=== PATIENT | male | born 2000 | race Two or more races ===

== ENCOUNTER 2021-11-08 14:51 | Emergency (ER) | payer OTHER, SELFPAY | END 2021-11-08 16:07 | disposition left against medical advice (07) | PROVIDERS: Emergency Provider Emergency Medicine | DX: R10.9 Unspecified abdominal pain (principal) ==

== ENCOUNTER 2021-11-17 06:30 | Emergency (ER) | payer OTHER, SELFPAY ==
[2021-11-17] VITALS (9 sets, daily range): BP systolic 120–139; BP diastolic 55–92; PULSE 119–156; RESP 11–24; TEMP 36.5–37; O2SAT 100; BMI 21.2
--- NOTE | ~2021-11-17 | CT_ITS ---
EXAMINATION: CT GI BLEED, ABDOMEN AND PELVIS WITHOUT/WITH IV CONTRAST CLINICAL INFORMATION: Bright red blood per rectum. COMPARISON: None. TECHNIQUE: Noncontrast and contrast-enhanced volumetric helical CT acquisition of the abdomen and pelvis. Axial images are presented at 0.6 mm and 5 mm slice thickness. Initially, noncontrast images of the abdomen and pelvis were obtained. Then, imaging is repeated after intravenous administration of 80 mL Omnipaque 350. Coronal and sagittal reformatted images were generated at the technologist workstation. This CT examination was performed using dose optimization techniques as appropriate, variously including the following: *Automated exposure control *Adjustment of mA and/or kV according to patient size (this includes techniques or standardized protocols for targeted exams where dose is matched to indication/reason for exam; i.e. extremities or head) *Use of iterative reconstruction technique DLP: 703 mGy-cm. FINDINGS: LUNG BASES: Unremarkable. LIVER, GALLBLADDER, AND BILIARY TREE: The liver has normal size, shape, and attenuation. No focal hepatic lesion. The gallbladder is grossly normal; no radiopaque gallstones, wall thickening, or pericholecystic fluid. No intrahepatic or extrahepatic bile duct dilatation. PANCREAS: Normal. No evidence of pancreatic mass, edema or ductal dilatation. SPLEEN: Normal. ADRENAL GLANDS: Normal. KIDNEYS AND URETERS: The kidneys have normal size, shape, and attenuation. No hydroureteronephrosis, urolithiasis or perinephric edema. BLADDER: Unremarkable. BOWEL AND PERITONEUM: Stomach and small bowel are normal. There is calcific material or contrast material in the lumen of the normal appendix. Gxttzmon-ip-hyjap amount of fecal material is present within the majority of the colon, with exception of the distal descending colon and rectum. There is fluid and probable clot filling the lumen of the distal colon and rectum. The contrast-enhanced images show presence of an active bleed arising from the rectal wall with extravasated contrast filling the rectal lumen. The bleed appears to be arising from a vessel along the vessel from the left lateral wall of the proximal third of the rectum, but there is also significant hyperdense contrast along the posterior wall of the mid to distal third of the rectum, which suggests that there might be more than one site of active bleeding from the rectal wall. The rectal mucosa is mildly thickened, particularly mid to distal third rectum, and there is associated perirectal edema/fat stranding. Findings are suggestive of active proctitis. Lymphadenopathy is present in the mesorectal compartment and there are mildly enlarged internal iliac and common iliac lymph nodes, as well. The largest right internal iliac lymph node is 1 cm and largest common iliac lymph node 0.9 cm short axis dimension. ABDOMINAL WALL: Unremarkable. LYMPH NODES: No pathologic sized retroperitoneal lymph nodes. Again, mildly enlarged iliac lymph nodes are detected. Also, prominent lymph nodes are present in the mesorectal compartment. VASCULATURE: Abdominal aorta and its branches are widely patent. Inferior vena cava is normal. PELVIC VISCERA: Prostate gland is normal. No pelvic mass. MUSCULOSKELETAL: Unremarkable. CT/CT gi bleed abd pel wo/w con IMPRESSION: The imaging findings are consistent with an active proctitis. There is thickening of rectal mucosa with edema/inflammation of perirectal fat and associated lymphadenopathy. There is no discrete mass within the rectum. The contrast-enhanced images show an active rectal bleed. The critical test result was discussed with ELIZA Santoyo, at 8:50 am on 11/17/2021 and it was ascertained that the content and the importance of the findings was understood at the time of the direct communication.
[2021-11-17 06:42] LABS: Glucose, Whole Blood 93 mg/dL (60-115)
--- NOTE | 2021-11-17 06:44 | ECG_ITS ---
Test Reason : TACHYCARDIA Blood Pressure : / mmHG Vent. Rate : 113 BPM Atrial Rate : 113 BPM P-R Int : 122 ms QRS Dur : 084 ms QT Int : 316 ms P-R-T Axes : 072 077 057 degrees QTc Int : 433 ms Sinus tachycardia Otherwise normal ECG No previous ECGs available Referred By: Araceli Arcos Electronically Signed By:Hemant Wong
--- NOTE | 2021-11-17 07:00 | ED_ITS ---
HPI - GI Bleed General Chief complaint: General Medical Stated complaint: rectal bleeding Time Seen by Provider: 11/17/21 06:44 Source: patient Mode of arrival: ambulatory Limitations: other (poor historian due to distress) History of Present Illness HPI Narrative: states 3 weeks of brbpr denies trauma or anal intercourse for 2 months he denies known prior history of this no known fam hx of IBD or UC/Crohns in himself. he is not on ASA or blood thinners. he has been feeling more weak and notes that over the past few days it has been worse. Last night it became severe and he was bleeding a lot and passing things that looked like red fish. Now he can barely walk now due to weakness and pain in his abdomen MD complaint: gross hematochezia Onset (ago): week(s) (3) Pain Consistency: intermittent and other Severity: moderate Relieving factors: none Exacerbating factors: bowel movement Context: other (he denies any known history) Associated symptoms: abdominal pain, nausea, loss of appetite, malaise, other bleeding (? thinks he noticed coughing up blood as well ) and weakness Treatments Prior to Arrival: none Related Data Home Medications Medication Instructions Recorded Confirmed doxycycline hyclate 100 mg capsule 1 cap PO BID 11/17/21 11/17/21 ibuprofen 800 mg tablet 1 tab PO TID 11/17/21 11/17/21 melatonin 10 mg capsule 1 cap PO BEDTIME 11/17/21 11/17/21 Allergies Allergy/AdvReac Type Severity Reaction Status Date / Time No Known Allergies Allergy Verified 11/17/21 06:36 [No Known Allergies*] Review of Systems Review of Systems: Constitutional : No Weight loss, No Fever, No Chills ENT/Mouth : No sore throat, No Rhinorrhea Eyes: No Swelling, No Redness Cardiovascular : No Chest Pain, No SOB, NoEdema Respiratory : pos Cough, No Sputum, No Wheezing Gastrointestinal : Positive Nausea, no Vomiting, positive Diarrhea, positive abdominal Pain, pos Hematochezia, No Melena Genitourinary : No Dysuria, No Urinary Frequency, No Hematuria, No Urgency Musculoskeletal : No joint pain, No Myalgias, No Joint Swelling Skin : No Skin Lesions, No rash Neuro : No Weakness, No Numbness, No Dizziness, No Headache Psych : pos Anxiety/Panic, No Depression Heme/Lymph: No Bruising, No Lymphadenopathy Endocrine : No Polyuria, No Polydipsia All other systems reviewed and are negative. [facility] Past Medical History Attestation statement: The following information was validated with the patient. Medical History HIV (human immunodeficiency virus infection) Social History Social History (Updated 11/17/21 @ 07:00 by Araceli Arcos DO) Alcohol intake: current Alcohol intake frequency: holidays/special occasions only Patient Tobacco Use Status: Never used Tobacco Use of substances other than those prescribed or required for medical reasons: Yes Substance Use Type: Marijuana Advance Directives: No Advance Directives Information Provided: Yes Physical Exam Vital Signs: Vital Signs: Last Vital Signs Temp 97.7 F 11/17/21 09:11 Pulse 120 H 11/17/21 09:11 Resp 20 11/17/21 09:11 BP 122/77 11/17/21 09:11 Pulse Ox 100 11/17/21 08:59 BMI result Body Mass Index 21.2 Appearance: Alert. Oriented X3. Moderate acute distress. Very anxious Eyes: Pupils equal, round and reactive to light. Pale sclera ENT: Pharynx dry Neck: Normal inspection. Neck supple. CVS:tachycardic heart rate and rhythm. Pulses present but capillary refill is delayed Respiratory: No respiratory distress. Breath sounds normal. Abdomen: Soft and moderate diffuse lower ttp, pos guarding Rectal: brb noted outside rectum underwear filled with clots and our bed pad had moderate area of blood soaked under it Skin: Skin cool and diaphoretic. pale skin color. Extremities: No lower extremity edema. nailbeds are white Neuro: Oriented X 3. No motor deficit. No sensory deficit. Very anxious Course Course Course Narrative: given tachycardia/anxiety/diaphoresis/pale appearance/delay in cap refill with significant active bleeding, hemoglobin 7.9 (no prior) will transfuse 1 UPRBC delay in type of blood and repeat bleeding worsening tachycardic will release emergency release O neg blood at this time very anxious - likely hemoglobin is even lower than 7.9 803am message sent to GI and surgery given active extravasation looks like it is lower on CT scan in rectum on my initial review while patient on CT table repeat message sent to his sister Divya [phone] states she can maybe co me at 930 I explained to her the seriousness of the situation which patient gave me the permission to do so. I have not left the bed side assisted in managing the patient, Dr Hu (gen surg) here plans for sigmoidoscopy now. 2 units of blood transfusing in - had 2 significant large bloody movements noted with large clots expressed HR 160s additional 18G in L AC patient now states he was at [facility] and [facility] in the last month c/o same thing and told it was related to infection and given prescriptions he doesn't know much at this time. discussed with radiology here and surgery ?IR at [facility] for embolization, patient still very tachcyardia BP 120/50 actively bleeding he is very anxious and confused now perseverating and stating he is going to leave, diaphoretic 3rd unit of blood infusing, brb and clots noted again 847am, Dr. Hu remains at bedside, repeat expression of large amount of brb and clots surgery at bedside. Sister has arrived. [facility] refused transport states they are closed to anything but trauma, stroke for thrombectomy, STEMI 854am will call [facility] 854am given proximity I do not think he is appropriate for travel distance to [place]/[facility] [[email or web address] added on levofloxacin/flagyl for proctitis - radiology read proctitis rectal hemorrhage active contrast is bright ?arterial bleed spoke to [facility] 859am Kee in transfer line , requests PCR COVID test , accepted to ED Dr. Padilla - aquiles made, requesting transfer for IR HEMOGLOBIN 11/14 [facility] 12.[address] with doxy CT scan proctitis - records sent to [facility] as well. MDM - GI Bleed MDM Narrative Medical decision making narrative: 21 yo male with HIV on medications no other prior medical history denies IBD or fam hx no ASA/NSAIDs, denies any recent rectal intercourse or penetration but notes for the past few weeks increasing brb per rectum with stool but also without last night was particularly bad with what he describes as clots coming out. At this time he is tachcyardic and pale with anxiety. Will obtain labs, type and screen, [address], IV fentanyl for pain, CT scan for GIB protocol ordered. Unsure what precipitated this event denies trauma, IBD, AC therapy, could be colitis. Concern for active hemorrhage and need for transfusion will notify surgery and GI as well given presentation. Lab Data Result diagrams: 11/17/21 06:54 11/17/21 06:54 Labs: Lab Results 11/17/21 11/17/21 11/17/21 Range/Units 06:37 06:54 06:54 WBC 11.5 H (4.8-10.8) X10*3/uL RBC 2.97 L (4.60-5.80) X10*6/uL Hgb 7.9 L (14.0-18.0) g/dl Hct 24.4 L (42.0-52.0) % MCV 82.2 (80.0-98.0) fL MCH 26.6 L (27.0-33.0) pg MCHC 32.4 (31.0-36.0) g/dl RDW 12.7 (11.0-16.0) % Plt Count 367 (160-400) X10*3/uL MPV 8.6 L (9.4-12.4) fL Immature Gran % (Auto) 0.5 H (0.0-0.4) % Neut % (Auto) 54.0 (45-73) % Lymph % (Auto) 35.0 (20-40) % Bryan % (Auto) 9.3 (2-11) % Eos % (Auto) 1.0 (0-4) % Baso % (Auto) 0.2 (0-2) % Lymph # (Auto) 4.0 (1.2-4.9) X10*3/uL Bryan # (Auto) 1.1 (0.1-1.2) X10*3/uL Eos # (Auto) 0.1 (0.0-0.4) X10*3/uL Baso # (Auto) 0.0 (0.0-0.2) X10*3/uL Abs Immat Gran (auto) 0.06 H (0.00-0.03) X10*3/uL Absolute Neuts (auto) 6.2 (2.0-8.3) x10*3/uL Absolute Nucleated RBC 0.000 (0.0-0.012) X10*3/uL Nucleated RBC % (auto) 0.0 (0.0-0.2) /100WBC Smear Tech's Comments VERIFIED PT 12.4 (9.9-13.0) SEC INR 1.1 (0.9-1.1) APTT 31.0 (24.1-38.0) SEC Sodium (135-145) mmol/L Potassium (3.3-5.1) mmol/L Chloride (96-108) mmol/L Carbon Dioxide (22-29) mmol/L Anion Gap (12-20) BUN (9-16) mg/dL Creatinine (0.5-1.4) mg/dL Estim Creat Clear Calc Estimated GFR POC Glucose 93 (60-115) mg/dL Random Glucose (60-115) mg/dL Lactic Acid (0.5-2.0) mmol/L Calcium (8.4-10.2) mg/dL Magnesium (1.6-2.6) mg/dL Total Bilirubin (0.0-1.0) mg/dL Direct Bilirubin (0.0-0.5) mg/dL AST (5-37) U/L ALT (0-40) U/L Alkaline Phosphatase (39-117) U/L Total Protein (6.5-8.0) g/dL Albumin (3.5-5.0) g/dL Lipase (8-78) U/L Stool Occult Blood (NEGATIVE) COVID-19 (MICHAEL) (Negative) COVID-19 Clin Com Blood Type Antibody Screen Crossmatch 11/17/21 11/17/21 11/17/21 Range/Units 06:54 06:54 06:54 WBC (4.8-10.8) X10*3/uL RBC (4.60-5.80) X10*6/uL Hgb (14.0-18.0) g/dl Hct (42.0-52.0) % MCV (80.0-98.0) fL MCH (27.0-33.0) pg MCHC (31.0-36.0) g/dl RDW (11.0-16.0) % Plt Count (160-400) X10*3/uL MPV (9.4-12.4) fL Immature Gran % (Auto) (0.0-0.4) % Neut % (Auto) (45-73) % Lymph % (Auto) (20-40) % Bryan % (Auto) (2-11) % Eos % (Auto) (0-4) % Baso % (Auto) (0-2) % Lymph # (Auto) (1.2-4.9) X10*3/uL Bryan # (Auto) (0.1-1.2) X10*3/uL Eos # (Auto) (0.0-0.4) X10*3/uL Baso # (Auto) (0.0-0.2) X10*3/uL Abs Immat Gran (auto) (0.00-0.03) X10*3/uL Absolute Neuts (auto) (2.0-8.3) x10*3/uL Absolute Nucleated RBC (0.0-0.012) X10*3/uL Nucleated RBC % (auto) (0.0-0.2) /100WBC Smear Tech's Comments PT (9.9-13.0) SEC INR (0.9-1.1) APTT (24.1-38.0) SEC Sodium 132 L (135-145) mmol/L Potassium 4.4 (3.3-5.1) mmol/L Chloride 102 (96-108) mmol/L Carbon Dioxide 26 (22-29) mmol/L Anion Gap 8 L (12-20) BUN 15 (9-16) mg/dL Creatinine 0.83 (0.5-1.4) mg/dL Estim Creat Clear Calc 124.3 Estimated GFR > 60 POC Glucose (60-115) mg/dL Random Glucose 96 (60-115) mg/dL Lactic Acid 1.9 (0.5-2.0) mmol/L Calcium 8.5 (8.4-10.2) mg/dL Magnesium 1.9 (1.6-2.6) mg/dL Total Bilirubin < 0.2 (0.0-1.0) mg/dL Direct Bilirubin < 0.2 (0.0-0.5) mg/dL AST 13 (5-37) U/L ALT 10 (0-40) U/L Alkaline Phosphatase 58 (39-117) U/L Total Protein 6.6 (6.5-8.0) g/dL Albumin 3.2 L (3.5-5.0) g/dL Lipase 25 (8-78) U/L Stool Occult Blood (NEGATIVE) COVID-19 (MICHAEL) Negative (Negative) COVID-19 Clin Com See Note Blood Type Antibody Screen Crossmatch 11/17/21 11/17/21 Range/Units 06:54 06:54 WBC (4.8-10.8) X10*3/uL RBC (4.60-5.80) X10*6/uL Hgb (14.0-18.0) g/dl Hct (42.0-52.0) % MCV (80.0-98.0) fL MCH (27.0-33.0) pg MCHC (31.0-36.0) g/dl RDW (11.0-16.0) % Plt Count (160-400) X10*3/uL MPV (9.4-12.4) fL Immature Gran % (Auto) (0.0-0.4) % Neut % (Auto) (45-73) % Lymph % (Auto) (20-40) % Bryan % (Auto) (2-11) % Eos % (Auto) (0-4) % Baso % (Auto) (0-2) % Lymph # (Auto) (1.2-4.9) X10*3/uL Bryan # (Auto) (0.1-1.2) X10*3/uL Eos # (Auto) (0.0-0.4) X10*3/uL Baso # (Auto) (0.0-0.2) X10*3/uL Abs Immat Gran (auto) (0.00-0.03) X10*3/uL Absolute Neuts (auto) (2.0-8.3) x10*3/uL Absolute Nucleated RBC (0.0-0.012) X10*3/uL Nucleated RBC % (auto) (0.0-0.2) /100WBC Smear Tech's Comments PT (9.9-13.0) SEC INR (0.9-1.1) APTT (24.1-38.0) SEC Sodium (135-145) mmol/L Potassium (3.3-5.1) mmol/L Chloride (96-108) mmol/L Carbon Dioxide (22-29) mmol/L Anion Gap (12-20) BUN (9-16) mg/dL Creatinine (0.5-1.4) mg/dL Estim Creat Clear Calc Estimated GFR POC Glucose (60-115) mg/dL Random Glucose (60-115) mg/dL Lactic Acid (0.5-2.0) mmol/L Calcium (8.4-10.2) mg/dL Magnesium (1.6-2.6) mg/dL Total Bilirubin (0.0-1.0) mg/dL Direct Bilirubin (0.0-0.5) mg/dL AST (5-37) U/L ALT (0-40) U/L Alkaline Phosphatase (39-117) U/L Total Protein (6.5-8.0) g/dL Albumin (3.5-5.0) g/dL Lipase (8-78) U/L Stool Occult Blood POSITIVE (NEGATIVE) COVID-19 (MICHAEL) (Negative) COVID-19 Clin Com Blood Type A Positive Antibody Screen NEGATIVE Crossmatch See Detail ECG Data Attestation: I personally reviewed and interpreted this ECG as follows: ECG interpretation date: 11/17/21 ECG interpretation time: 07:13 Interpretation: Rate: 113 Rhythm: sinus tachycardia [place]: normal Normal P waves. Normal ARSLAN. Normal QRS complex. ST T wave : normal no ESSIE qTC: normal prior studies: no acute ischemia The study has been interpreted contemporaneously by me. . Critical Care Time Critical Care Time Critical Care Time: Yes Total Critical Care Time: 90 Attestation: calls to family, medical consults, IV access, blood transfusions, IVF, direct bedside assessments I attest to this time spent taking care of the patient Discharge Plan Discharge Clinical Impression: Acute GI bleeding, Anemia, Acute proctitis, Rectal hemorrhage Patient Disposition: Xfer [facility] Transfer Details: [facility] Prescriptions: No Action doxycycline hyclate 100 mg capsule 1 cap PO BID 0RF ibuprofen 800 mg tablet 1 tab PO TID 0RF melatonin 10 mg capsule 1 cap PO BEDTIME 0RF
[2021-11-17] MEDS: fentaNYL citrate/PF 100 MCG/2 ML VIAL 50 MCG IVPUSH ×2 (07:01→09:21)
[2021-11-17] MEDS: ondansetron HCL 4 MG/2 ML VIAL IVPUSH (07:02)
[2021-11-17] MEDS: 0.9 % Sodium Chloride 1,000 ML 999 ML IVCONT ×2 (07:03→07:11)
[2021-11-17 07:06] LABS: Basophils Percent Auto 0.2 % (0-2); Eosinophils Absolute Auto 0.1 X10*3/uL (0.0-0.4); Hematocrit 24.4 % (42.0-52.0); Imm Gran Abs Auto 0.06 X10*3/uL (0.00-0.03); Imm Gran Pct Auto 0.5 % (0.0-0.4); MANUAL DIFF FLAG SCAN; Mean Corpuscular HGB Conc 32.4 g/dl (31.0-36.0); Mean Corpuscular Hemoglobin 26.6 pg (27.0-33.0); Mean Corpuscular Volume 82.2 fL (80.0-98.0); Mean Platelet Volume 8.6 fL (9.4-12.4); Monocytes Absolute Auto 1.1 X10*3/uL (0.1-1.2); Monocytes Percent Auto 9.3 % (2-11); Neutrophils Absolute Auto 6.2 x10*3/uL (2.0-8.3); Platelet Count 367 X10*3/uL (160-400); Red Blood Count 2.97 X10*6/uL (4.60-5.80); Red Cell Distribution Width 12.7 % (11.0-16.0); SCAN SMEAR FLAG 1; White Blood Count 11.5 X10*3/uL (4.8-10.8)
[2021-11-17 07:10] LABS: OBS Int Ctl Valid YES; OBS1 POSITIVE (NEGATIVE)
[2021-11-17 07:14] LABS: INTERNATIONAL NORM RATIO 1.1 (0.9-1.1); Lactic Acid 1.9 mmol/L (0.5-2.0); Prothrombin Time 12.4 SEC (9.9-13.0)
[2021-11-17 07:19] LABS: Hemoglobin 7.9 g/dl (14.0-18.0)
[2021-11-17 07:20] LABS: COVID-19 Test Negative (Negative)
[2021-11-17 07:23] LABS: Alanine Aminotransferase 10 U/L (0-40); Albumin Level 3.2 g/dL (3.5-5.0); Alkaline Phosphatase 58 U/L (39-117); Anion Gap 8 (12-20); Aspartate Amino Transferase 13 U/L (5-37); Bilirubin Direct < 0.2 mg/dL (0.0-0.5); Bilirubin Total < 0.2 mg/dL (0.0-1.0); Blood Urea Nitrogen 15 mg/dL (9-16); Calcium 8.5 mg/dL (8.4-10.2); Carbon Dioxide 26 mmol/L (22-29); Chloride 102 mmol/L (96-108); Creatinine Clr Calc Pharmacy 124.3; Estimated Glomerular Filt Rate > 60; Glucose Random 96 mg/dL (60-115); Lipase 25 U/L (8-78); Magnesium 1.9 mg/dL (1.6-2.6); Potassium 4.4 mmol/L (3.3-5.1); Sodium 132 mmol/L (135-145); Total Protein 6.6 g/dL (6.5-8.0)
[2021-11-17 07:55] LABS: SLIDE REVIEW VERIFIED
[2021-11-17] MEDS: iohexoL 350 MG/ML 100 ML INFUS..BTL IV (08:13)
[2021-11-17] MEDS: metroNIDAZOLE/NS 500 MG/100 ML PIGGYBACK 100 MG IV (09:13)
[2021-11-17] MEDS: levoFLOXacin/D5W 500 MG/100 ML PIGGYBACK 100 MG IV (09:26)
--- NOTE | 2021-11-17 09:46 | PC.NURSE ---
Patient transferred to [facility], transferred while blood was infusing.
[2021-11-17 09:52] LABS: Influenza A PCR NEGATIVE (Negative); Influenza B PCR NEGATIVE (Negative); Resp Syncy Virus RNA Qual PCR NEGATIVE (Negative); SARS COV2 PCR INHOUSE NEGATIVE (Negative)
--- NOTE | 2021-11-17 10:58 | P.CONGS_ITS ---
History of Present Illness Consult details Consult date: 11/17/21 Narrative: 21-year-old male seen earlier today in the ER. He was referred for active rectal bleeding. The patient was extremely anxious and hyperventilating when seen. He apparently had been having some passage of bright blood per rectum for about a month. This seemed to have been worse this morning that so he came to the ER. He was seen in [facility] as well as [facility] about 4 days ago as well for the same problem but he said he was discharged. He continued to have rectal bleeding which seemed to be this morning. He has a history of HIV. He admits to previous history of anal receptive intercourse. He says that she has pain in the rectum with bowel movements and this has been like this for several weeks. Review of Systems Constitutional: Constitutional: Denies chills and Denies fever(s) Cardiovascular: Cardiovascular: Denies chest pain, Denies dyspnea and Denies dyspnea on exertion Respiratory: Respiratory: Denies cough, Denies dyspnea and Denies dyspnea on exertion Gastrointestinal: Gastrointestinal: Reports hematochezia and Denies change in bowel habits Genitourinary: Genitourinary: Denies hematuria and Denies difficulty urinating Musculoskeletal: Musculoskeletal: Denies back pain and Denies limited range of motion Neurologic: Denies focal weakness and Denies convulsions Psychiatric: Psychiatric: Reports anxiety PMFSH Past Medical History Medical History HIV (human immunodeficiency virus infection) Social History Social History Alcohol intake: current Alcohol intake frequency: holidays/special occasions only Patient Tobacco Use Status: Never used Tobacco Use of substances other than those prescribed or required for medical reasons: Yes Substance Use Type: Marijuana Advance Directives: No Advance Directives Information Provided: Yes Meds Allergies Allergy/AdvReac Type Severity Reaction Status Date / Time No Known Allergies Allergy Verified 11/17/21 06:36 [No Known Allergies*] Home Medications Medication Instructions Recorded Confirmed Last Taken Type doxycycline hyclate 100 mg capsule 1 cap PO BID 11/17/21 11/17/21 Unknown History ibuprofen 800 mg tablet 1 tab PO TID 11/17/21 11/17/21 Unknown History melatonin 10 mg capsule 1 cap PO BEDTIME 11/17/21 11/17/21 Unknown History Physical Exam Vital Signs: Vital Signs: Last Vital Signs Temp 97.7 F 11/17/21 09:11 Pulse 120 H 11/17/21 09:11 Resp 20 11/17/21 09:11 BP 122/77 11/17/21 09:11 Pulse Ox 100 11/17/21 08:59 BMI result Body Mass Index 21.2 Const: Other: extremely anxious, frequently hyperventilating Orientation/consciousness: patient oriented x3 Neck: Neck: Yes no lymphadenopathy Resp: Auscultation: clear to auscultation bilaterally Cardio: Rhythm: regular rhythm GI: Other: Active passage of bright clots rectum when seen Palpation (GI): Soft to palp ation, nontender and no guarding Neuro: General: patient oriented x3 Results Labs Result diagrams: 11/17/21 06:54 11/17/21 06:54 Labs: Abnormal lab results 11/17/21 11/17/21 11/17/21 Range/Units 06:54 06:54 06:54 WBC 11.5 H (4.8-10.8) X10*3/uL RBC 2.97 L (4.60-5.80) X10*6/uL Hgb 7.9 L (14.0-18.0) g/dl Hct 24.4 L (42.0-52.0) % MCH 26.6 L (27.0-33.0) pg MPV 8.6 L (9.4-12.4) fL Immature Gran % (Auto) 0.5 H (0.0-0.4) % Abs Immat Gran (auto) 0.06 H (0.00-0.03) X10*3/uL Sodium 132 L (135-145) mmol/L Anion Gap 8 L (12-20) Albumin 3.2 L (3.5-5.0) g/dL Crossmatch See Detail Short CBC 11/17/21 Range/Units 06:54 WBC 11.5 H (4.8-10.8) X10*3/uL Hgb 7.9 L (14.0-18.0) g/dl Hct 24.4 L (42.0-52.0) % Plt Count 367 (160-400) X10*3/uL BMP 11/17/21 06:54 Sodium 132 L Potassium 4.4 Chloride 102 Carbon Dioxide 26 BUN 15 Creatinine 0.83 Calcium 8.5 Liver Function 11/17/21 Range/Units 06:54 Total Bilirubin < 0.2 (0.0-1.0) mg/dL Direct Bilirubin < 0.2 (0.0-0.5) mg/dL AST 13 (5-37) U/L ALT 10 (0-40) U/L Alkaline Phosphatase 58 (39-117) U/L Albumin 3.2 L (3.5-5.0) g/dL All other labs normal. Imaging Abdomen CT scan report/results: report reviewed and image reviewed CT scan - pelvis: report reviewed and image reviewed Assessment and Plan (1) Rectal hemorrhage: Status: Inactive He has been passing bright blood per rectum for a month, and the seemed to be worse this morning. When examined, he was noted to pass large amounts of bright blood rectum. His hemoglobin was 7.9. He had a CT angiogram showing what appeared to be active arterial bleeding in the low rectal area. 1 option therefore was to flex sig but it appeared that with tThe findings on CT angiogram, we may need to do therapeutic angiogram. I discussed the case with the interventional radiologist. I had recommended for him to undergo angiogram with possible embolization to control the bleeding. This deemed to be not viable at this time in our institution. the ER therefore made arrangements to have him transferred to [facility]. The case was discussed with the accepting physician there. The patient just completed transfusion of 3 units of packed RBC while I was in the ER. His heart rate was initially in the 160s, but this was down to 118. His blood pressure was 130 over 80. I discussed his situation with the sister as well as the patient's outpatient case manager Erza. Procedures Date of Service Date of Service: 11/17/21
--- NOTE | 2021-11-17 16:18 | PC.NURSE ---
fentynal pulled by Jennifer SANTIAGO unable to be wasted in pyxis, was pulled for stat dose and then patient was transferred before waste complete. 50mcg as given IV.
== END 2021-11-17 09:46 | disposition short-term general hospital (02) ==
PROVIDERS: Emergency Provider Emergency Medicine; PCP Family Medicine
DX: K92.2 Gastrointestinal hemorrhage, unspecified (principal); D64.9 Anemia, unspecified; K62.89 Other specified diseases of anus and rectum; Z20.822 Contact with and (suspected) exposure to COVID-19; Z79.899 Other long term (current) drug therapy
CPT/HCPCS: 0241U; 36430; 74178; 80048; 80076; 82272; 82947; 83605; 83690; 83735; 85025; 85610; 85730; 86850; 86900; 86901; 86920; 86923; 87040; 87635; 93005; 96361; 96365; 96372; 96375; 96376; 99285; 99291; 99292; J1956; J2405; J3010; P9016; Q9967

== ENCOUNTER 2022-11-27 06:46 | Emergency (ER) | payer OTHER, SELFPAY ==
--- NOTE | ~2022-11-27 | CT_ITS ---
EXAMINATION: CT ABDOMEN AND PELVIS WITHOUT CONTRAST CLINICAL INFORMATION: Right buttock abscess COMPARISON: 11/17/2021 TECHNIQUE: Multidetector volumetric imaging was performed from the superior aspect of the liver through the pubic symphysis. Sagittal and coronal reformatted images were obtained on the technologist's workstation. This CT examination was performed using dose optimization techniques as appropriate, variously including the following: *Automated exposure control *Adjustment of mA and/or kV according to patient size (this includes techniques or standardized protocols for targeted exams where dose is matched to indication/reason for exam; i.e. extremities or head) *Use of iterative reconstruction technique DLP: 1057 mGy-cm FINDINGS: LUNG BASES: The visualized lung bases are unremarkable. LIVER, GALLBLADDER, AND BILIARY TREE: The liver is normal in size, shape, and attenuation. No focal hepatic lesion or biliary ductal dilatation is present. The gallbladder is unremarkable with no evidence of radiopaque gallstones, gallbladder wall thickening, or obvious pericholecystic inflammatory changes. PANCREAS: Unremarkable. SPLEEN: Unremarkable. ADRENAL GLANDS: Unremarkable. KIDNEYS AND URETERS: The kidneys are normal in size, shape, and attenuation. No hydronephrosis, hydroureter, or calculi seen. No perinephric stranding. BLADDER: Unremarkable. GASTROINTESTINAL TRACT: Distended stomach without wall thickening. Normal caliber small bowel. No obstruction. No colonic wall thickening or inflammation. Normal appendix. No free air or free fluid. ABDOMINAL WALL: No significant hernia is appreciated. There is significant inflammation in the right gluteal soft tissues along the medial gluteal fold. There is likely some packing in the soft tissues in the area of greatest inflammation. Lack of IV contrast limits evaluation of fluid collection. No clear evidence of a demarcated collection. Inflammation does not extend into the gluteal musculature. Inflammation does track from the right perianal region. LYMPH NODES: Normal. VASCULAR: Unremarkable. PELVIC VISCERA: The prostate and seminal vesicles are unremarkable. OSSEOUS STRUCTURES: Unremarkable. CT/CT abdomen pelvis wo IV con IMPRESSION: Significant inflammation in the right gluteal soft tissues along the medial gluteal fold. Lack of IV contrast limits evaluation of fluid collection. No clear evidence of a demarcated collection. Inflammation does not extend into the gluteal musculature. Inflammation does track from the right perianal region. Fleischner guidelines were followed.
[2022-11-27 07:18] VITALS: BP 142/105; PULSE 119; RESP 20; TEMP 36.4; O2SAT 98; BMI 24.0
--- NOTE | 2022-11-27 07:21 | PC.NURSE ---
pt educated not to eat or drink, continues to eat and drink.
--- NOTE | 2022-11-27 08:23 | ED_ITS ---
HPI - Skin/Abscess/Foreign Bdy General Chief complaint: Skin/Abscess/Foreign Body Stated complaint: Swelling upper right leg glute area Time Seen by Provider: 11/27/22 08:14 Source: patient Mode of arrival: ambulatory Limitations: no limitations History of Present Illness HPI narrative: 22-year-old male history of HIV came in with pain and swelling of his right buttocks, very sensitive and tender to touch. Symptoms started 2 days ago as mild now the pain is very severe, patient also noticed tenderness and redness to the right buttock area. No rectal bleeding. Related Data Home Medications Medication Instructions Recorded Confirmed doxycycline hyclate 100 mg capsule 1 cap PO BID 11/17/21 11/17/21 ibuprofen 800 mg tablet 1 tab PO TID 11/17/21 11/17/21 melatonin 10 mg capsule 1 cap PO BEDTIME 11/17/21 11/17/21 Allergies Allergy/AdvReac Type Severity Reaction Status Date / Time No Known Allergies Allergy Verified 11/17/21 06:36 [No Known Allergies*] Review of Systems Review of Systems: All other systems are reviewed and are negative Constitutional: Reports as per HPI and Reports no additional constitutional complaints Eyes: Reports as per HPI and Reports no additional eye complaints Reports system reviewed and no additional complaints, except as documented Cardiovascular: Reports as per HPI and Reports no additional cardiovascular complaints Respiratory: Reports as per HPI and Reports no additional respiratory complaints Gastrointestinal: Reports as per HPI and Reports no additional gastrointestinal complaints Genitourinary: Reports no additional female genitourinary complaints Musculoskeletal: Reports no additional musculoskeletal complaints Skin/Breast: Reports system reviewed and no additional complaints, except as docu Psychiatric: Reports no additional psychiatric complaints Endocrine: Reports no additional endocrine complaints Hematologic/Lymphatic: Reports no additional hematologic/lymphatic complaints Allergic/Immunologic: Reports no additional allergic/immunologic complaints Reports system reviewed and no additional complaints, except as documented and Reports Abnormal speech present [facility] Past Medical History Medical History HIV (human immunodeficiency virus infection) Social History Social History Alcohol intake: current Alcohol intake frequency: holidays/special occasions only Patient Tobacco Use Status: Never used Tobacco Substance Use Type: Marijuana Advance Directives: No Physical Exam Vital Signs: Vital Signs: Last Vital Signs Temp 97.6 F 11/27/22 07:18 Pulse 119 H 11/27/22 07:18 Resp 26 H 11/27/22 08:33 BP 142/105 H 11/27/22 07:18 Pulse Ox 98 11/27/22 07:18 O2 Del Method 11/27/22 07:18 BMI result Body Mass Index 24.0 Vital signs have been reviewed as appeared to be correct. Blood pressure normal. Heart rate normal. Respiration rate normal. Temperature normal. Oxygen saturation normal. Appearance: Alert. Oriented X3. No acute distress. Head: Normal external exam. Normocephalic. Atraumatic. No Freedman signs noted. No raccoon eyes noted Eyes: PERRLA. EOMI. Conjunctiva and sclera normal. Eyelids normal. ENT: TM's Normal. Pharynx normal. Uvula midline. Moist mucous membranes. No trismus noted. No drooling noted. No muffled voice noted. Neck: Normal inspection. Neck supple. FROM. No adenopathy. Thyroid Normal. No meningeal signs. No neck mass noted. CVS: Normal heart rate and rhythm. Heart sound normal. No murmurs noted. Pulses normal throughout. Respiratory: No respiratory distress. Painless inspiration. Breath sounds normal. No wheezes/rales/rhonchi noted. Chest nontender. No accessory muscle usage noted or decreased air movement noted. Abdomen: Soft and nontender. Bowel sounds normal in all 4 quadrants. No distention noted. No organomegaly noted. No visible injury noted. Rectal exam: Redness, hotness, swelling of the right buttock with 7 x 7 cm area of right buttock abscess. Back: No CVA tenderness. Full range of motion noted. Skin: Skin warm and dry. Normal skin color. Normal skin turgor. No rashes/lesions/lacerations noted. Extremities: No lower extremity edema. Extremities exhibit normal range of motion. Extremities nontender. Neuro: Oriented X 3. Cranial nerve exam: II-XII are grossly intact No motor deficit. No sensory deficit. Reflexes normal. Course Course Course Narrative: 22-year-old male came in with right buttock area cellulitis with abscess. Please refer to the I&D procedure. Post drainage I and D patient had a CT which showed not much accumulation of pus in the soft tissue of the right buttock, start the patient on antibiotic keep the packing have the patient follow up in 2 days either in the ED or at the surgeon office. Medications Administered Discontinued Medications Generic Name Dose Route Start Last Admin Trade Name Renetta PRN Reason Stop Dose Admin Lidocaine HCl 20 ml 11/27/22 08:18 11/27/22 08:34 Lidocaine Hcl 1 % Mpf 5 Ml Vial SUBCUT 11/27/22 08:19 20 ml ONCE ONE Administration Morphine Sulfate 2 mg 11/27/22 08:18 11/27/22 08:33 Morphine Sulfate 2 Mg/Ml Cartridge IVPUSH 11/27/22 08:19 2 mg ONCE ONE Administration Protocol Medical Decision Making Differential Diagnosis Differential Diagnoses: The differential diagnosis associated with the presentation includes (Cellulitis, abscess, necrotizing fasciitis.) Lab Data MDM Lab Attestation statement: I reviewed the patient's lab results. 11/27/22 09:10 11/27/22 09:10 Labs: Lab Results 11/27/22 11/27/22 11/27/22 Range/Units 09:10 09:10 09:10 WBC 11.8 H (4.8-10.8) X10*3/uL RBC 5.85 H D (4.60-5.80) X10*6/uL Hgb 14.3 D (14.0-18.0) g/dl Hct 45.7 D (42.0-52.0) % MCV 78.1 L (80.0-98.0) fL MCH 24.4 L (27.0-33.0) pg MCHC 31.3 (31.0-36.0) g/dl RDW 14.7 (11.0-16.0) % Plt Count 317 (160-400) X10*3/uL MPV 8.5 L (9.4-12.4) fL Immature Gran % (Auto) 0.3 (0.0-0.4) % Neut % (Auto) 68.6 (45-73) % Lymph % (Auto) 19.8 L (20-40) % Burke % (Auto) 9.7 (2-11) % Eos % (Auto) 1.3 (0-4) % Baso % (Auto) 0.3 (0-2) % Lymph # (Auto) 2.3 (1.2-4.9) X10*3/uL Burke # (Auto) 1.1 (0.1-1.2) X10*3/uL Eos # (Auto) 0.2 (0.0-0.4) X10*3/uL Baso # (Auto) 0.0 (0.0-0.2) X10*3/uL Abs Immat Gran (auto) 0.03 (0.00-0.03) X10*3/uL Absolute Neuts (auto) 8.1 (2.0-8.3) x10*3/uL Absolute Nucleated RBC 0.000 (0.0-0.012) X10*3/uL Nucleated RBC % (auto) 0.0 (0.0-0.2) /100WBC Sodium 140 (135-145) mmol/L Potassium 4.1 (3.3-5.1) mmol/L Chloride 106 (96-108) mmol/L Carbon Dioxide 26 (22-29) mmol/L Anion Gap 12 (12-20) BUN 10 (9-16) mg/dL Creatinine 0.90 (0.5-1.4) mg/dL Estim Creat Clear Calc 122.4 Estimated GFR > 60 Random Glucose 108 (60-115) mg/dL Lactic Acid 1.3 (0.5-2.0) mmol/L Calcium 8.5 (8.4-10.2) mg/dL Independent Interpretation I performed an independent interpretation of an: CT Scan (Right buttock:Significant inflammation in the right gluteal soft tissues along the medial gluteal fold. Lack of IV contrast limits evaluation of fluid collection. No clear evidence of a demarcated collection. Inflammation does not extend into the gluteal musculature. Inflammation does track from the) Radiology Impression Discussion of test interpretation with radiology: I have reviewed the radiologist's reading. Procedures Abscess I/D Site: other (Buttock) Side (if applicable): right Local Anesthetic: lidocaine 1% Amount of anesthesia used (mL): 5 Technique: incised with blade Amount of fluid expressed (mL): 15 Sent for culture/gram staining?: No Irrigation: No Packing used?: iodoform Discharge Plan Discharge Clinical Impression: Cellulitis, Abscess of skin or subcutaneous tissue Patient Disposition: Home, Self-Care Instructions: Abscess Incision and Drainage (DC) Prescriptions: No Action doxycycline hyclate 100 mg capsule 1 cap PO BID ibuprofen 800 mg tablet 1 tab PO TID melatonin 10 mg capsule 1 cap PO BEDTIME Referrals: Klaus Hu MD [Physician] -
[2022-11-27 08:33] VITALS: RESP 26
[2022-11-27] MEDS: Morphine Sulfate 2 MG/ML CARTRIDGE IVPUSH (08:33)
[2022-11-27] MEDS: Lidocaine HCl 1 % MPF 5 ML VIAL 20 ML SUBCUT (08:34)
--- NOTE | 2022-11-27 09:14 | MHC.EDTECH ---
Labs and culltures collected and sent to lab
[2022-11-27 09:18] LABS: MANUAL DIFF FLAG NO
[2022-11-27 09:20] LABS: Basophils Percent Auto 0.3 % (0-2); Eosinophils Absolute Auto 0.2 X10*3/uL (0.0-0.4); Eosinophils Percent Auto 1.3 % (0-4); Hematocrit 45.7 % (42.0-52.0); Hemoglobin 14.3 g/dl (14.0-18.0); Imm Gran Abs Auto 0.03 X10*3/uL (0.00-0.03); Imm Gran Pct Auto 0.3 % (0.0-0.4); Lymphocytes Absolute Auto 2.3 X10*3/uL (1.2-4.9); Lymphocytes Percent Auto 19.8 % (20-40); Mean Corpuscular HGB Conc 31.3 g/dl (31.0-36.0); Mean Corpuscular Hemoglobin 24.4 pg (27.0-33.0); Mean Corpuscular Volume 78.1 fL (80.0-98.0); Mean Platelet Volume 8.5 fL (9.4-12.4); Monocytes Absolute Auto 1.1 X10*3/uL (0.1-1.2); Monocytes Percent Auto 9.7 % (2-11); Neutrophils Absolute Auto 8.1 x10*3/uL (2.0-8.3); Neutrophils Percent Auto 68.6 % (45-73); Platelet Count 317 X10*3/uL (160-400); Red Blood Count 5.85 X10*6/uL (4.60-5.80); Red Cell Distribution Width 14.7 % (11.0-16.0); White Blood Count 11.8 X10*3/uL (4.8-10.8)
[2022-11-27 09:32] LABS: Lactic Acid 1.3 mmol/L (0.5-2.0)
[2022-11-27 09:51] LABS: Anion Gap 12 (12-20); Blood Urea Nitrogen 10 mg/dL (9-16); Calcium 8.5 mg/dL (8.4-10.2); Carbon Dioxide 26 mmol/L (22-29); Chloride 106 mmol/L (96-108); Creatinine Clr Calc Pharmacy 122.4; Estimated Glomerular Filt Rate > 60; Glucose Random 108 mg/dL (60-115); Potassium 4.1 mmol/L (3.3-5.1); Sodium 140 mmol/L (135-145)
[2022-11-27] MEDS: Doxycycline Monohydrate 100 MG CAPSULE PO (10:48)
== END 2022-11-27 10:58 | disposition home or self-care (01) ==
PROVIDERS: Emergency Provider Emergency Medicine
DX: L03.317 Cellulitis of buttock (principal); L02.31 Cutaneous abscess of buttock
CPT/HCPCS: 10060; 36415; 74176; 80048; 83605; 85025; 87040; 96374; 99284; J2270

== ENCOUNTER 2022-11-29 08:51 | Emergency (ER) | payer OTHER, SELFPAY ==
[2022-11-29 08:57] VITALS: BP 142/92; PULSE 104; RESP 17; TEMP 36.6; O2SAT 98; BMI 23.7
--- NOTE | 2022-11-29 09:03 | ED.WOUNDLAC ---
HPI - Wound/Laceration General Chief Complaint: Wound/Laceration Stated Complaint: Doesnt know what he's here for Time Seen by Provider: 11/29/22 09:01 Source: patient and old records reviewed Mode of arrival: ambulatory Limitations: no limitations History of Present Illness HPI narrative: This is a 22 year old male, with a past medical history of HIV, presenting to the emergency department for wound check. Patient was seen on 11/27/2022 for a right gluteal abscess which was I&D. He states that he has kept the wick in that was placed on 11/27 reports some mild pain, but denies any purulent drainage, fevers, or chills. He states that he has noticed some bloody discharge from the area. He reports that he has not started taking antibiotics, but was prescribed antibiotics through his primary care physician which he will start today. No other complaints or concerns at this time. Location: other (buttocks) Associated symptoms: pain Treatments prior to arrival: bandage Related Data Home Medications Medication Instructions Recorded Confirmed doxycycline hyclate 100 mg capsule 1 cap PO BID 11/17/21 11/17/21 ibuprofen 800 mg tablet 1 tab PO TID 11/17/21 11/17/21 melatonin 10 mg capsule 1 cap PO BEDTIME 11/17/21 11/17/21 Allergies Allergy/AdvReac Type Severity Reaction Status Date / Time No Known Allergies Allergy Verified 11/17/21 06:36 [No Known Allergies*] Review of Systems Review of Systems: Yes all other systems are reviewed and are negative PMFSH Past Medical History Medical History HIV (human immunodeficiency virus infection) Social History Social History Alcohol intake: current Alcohol intake frequency: holidays/special occasions only Patient Tobacco Use Status: Never used Tobacco Substance Use Type: Marijuana Advance Directives: No Advance Directives Information Provided: No Physical Exam Vital Signs: Vital Signs: Last Vital Signs Temp 98 F 11/29/22 08:57 Pulse 104 H 11/29/22 08:57 Resp 17 11/29/22 08:57 BP 142/92 H 11/29/22 08:57 Pulse Ox 98 11/29/22 08:57 BMI result Body Mass Index 23.7 Appearance: Alert. Oriented X3. No acute distress. HEENT: normal inspection Skin: There is an approximately 2cm area of tenderness with mild erythema and edema with no warmth, fluctuance, or drainage on the right distal buttock. Wick in place. CVS: Normal heart rate and rhythm. Pulses normal. Respiratory: No respiratory distress. Skin: Skin warm and dry. Normal skin color. Normal skin turgor. No rashes. Neuro: Oriented X 3. No motor deficit. No sensory deficit. Medical Decision Making Medical Decision Making MDM Narrative: 22 y/o M presents today for wound check s/p I&D performed on gluteal abscess on 11/27. Wound is well healing, with no fluctuance, drainage. Advised to continue warm soaks and take anitbiotics as directed. Encouraged to return with any new or worsening symptoms. Patient understands and agrees with plan. Differential Diagnosis Differential Diagnoses: The differential diagnosis associated with the presentation includes abscess, cellulitis, hematoma, folliculitis less likely rectal abscess External Record Review External record reviewed: Outpatient record Prescription Management I considered prescription management with: Antibiotic Chronic Conditions Patient?s care impacted by: Other (HIV) Critical Care Time Critical Care Time Critical Care Time: No Discharge Plan Discharge Clinical Impression: Abscess Patient Disposition: Home, Self-Care Instructions: Abscess Follow-up (ED) Additional Instructions: use warm compresses to the area several times per day take warm baths w/ epsom salts or antibacterial soap take your antibiotics if you develop new or worsening symptoms call 911 or come back to the ER for further evaluation. Prescriptions: No Action doxycycline hyclate 100 mg capsule 1 cap PO BID ibuprofen 800 mg tablet 1 tab PO TID melatonin 10 mg capsule 1 cap PO BEDTIME Interventions: ED Discharge Assessment Last Done: 11/29/22 09:24 Discharge Date/Time: 11/29/22 09:24
== END 2022-11-29 09:24 | disposition home or self-care (01) ==
PROVIDERS: Emergency Provider Emergency Medicine
DX: L02.31 Cutaneous abscess of buttock (principal); Z48.00 Encounter for change or removal of nonsurgical wound dressing; B20 Human immunodeficiency virus [HIV] disease
CPT/HCPCS: 99282; 99284

== ENCOUNTER 2022-12-14 22:32 | Emergency (ER) | payer OTHER, SELFPAY ==
[2022-12-14 22:38] VITALS: BP 149/95; PULSE 109; RESP 20; TEMP 37.6; O2SAT 100; BMI 22.1
--- NOTE | 2022-12-15 00:18 | ED.GENADULT ---
HPI - General Adult General Chief complaint: Skin/Abscess/Foreign Body Stated complaint: Abscess Time Seen by Provider: 12/14/22 23:39 Source: patient and RN notes reviewed Mode of arrival: ambulatory Limitations: no limitations History of Present Illness HPI narrative: 22-year-old male presents for evaluation of a red painful lump to his left lower abdominal wall. Patient reports that he was here few weeks ago for a similar area that was an abscess and had to be cut open. He states this new 1 on his abdomen started about a week later, 1 and half weeks ago He complains of 10/10 pain Denies any fevers, chills No other complaints or concerns at this time Related Data Home Medications Medication Instructions Recorded Confirmed doxycycline hyclate 100 mg capsule 1 cap PO BID 11/17/21 11/17/21 ibuprofen 800 mg tablet 1 tab PO TID 11/17/21 11/17/21 melatonin 10 mg capsule 1 cap PO BEDTIME 11/17/21 11/17/21 Previous Rx's Medication Instructions Recorded cephalexin 500 mg capsule 500 mg PO QID #28 caps 12/15/22 Allergies Allergy/AdvReac Type Severity Reaction Status Date / Time No Known Allergies Allergy Verified 11/17/21 06:36 [No Known Allergies*] Review of Systems Constitutional: Constitutional: Reports as per HPI, Denies chills and Denies fever(s) Gastrointestinal: Gastrointestinal: Denies abdominal pain, Denies constipation and Denies vomiting Integumentary/Breasts: Comments: Abscess to left lower abdomen PMFSH Past Medical History Medical History HIV (human immunodeficiency virus infection) Social History Social History Alcohol intake: current Alcohol intake frequency: holidays/special occasions only Patient Tobacco Use Status: Never used Tobacco Substance Use Type: Marijuana Advance Directives: No Advance Directives Information Provided: No Physical Exam ED Vital Signs: Vital Signs - 24 hr 12/14/22 22:38 Temperature 99.7 F Pulse Rate 109 H Respiratory Rate 20 Blood Pressure 149/95 H Pulse Oximetry 100 Oxygen Delivery Method Room Air BMI result Body Mass Index 22.1 Const General: healthy appearing, comfortable, no acute distress, alert and awake Nutritional Appearance: well nourished Orientation/consciousness: patient oriented x3 HENMT Head: Yes normocephalic and Yes atraumatic Throat: Yes posterior oropharynx normal Eyes Eyelids: Yes eyelids normal Conjunctivae: conjunctivae normal Sclerae: sclerae normal Corneas: corneas normal Pupils: Equal, round and reactive pupils present EOM: EOMs intact bilaterally Neck Neck: Yes full ROM GI Other: Patient has a 4 x 2 cm area of fluctuance induration with surrounding erythema to the left lower abdomen. Significantly tender to palpation. No open wounds or active drainage Inspection: No distended Palpation (GI): Soft to palpation, not firm, nontender, no guarding and not rigid Auscultation: normoactive bowel sounds Skin General skin exam: elasticity normal Neuro General: patient oriented x3 Cranial nerves: Yes CN's II-XII intact bilaterally, Yes Equal, round and reactive pupils present and Yes Bilaterally intact EOM present Cognition (Neuro): normal cognition Extrem Other: Moving all extremities well without any obvious deformities Medications Administered Discontinued Medications Generic Name Dose Route Start Last Admin Trade Name Freq PRN Reason Stop Dose Admin Acetaminophen 650 mg 12/15/22 00:56 12/15/22 00:59 Acetaminophen 325 Mg Tablet PO 12/15/22 00:57 650 mg ONCE ONE Administration Lidocaine HCl 5 ml 12/15/22 00:16 12/15/22 00:25 Lidocaine Hcl 1 % Mpf 5 Ml Vial INFILTRATI 12/15/22 00:17 5 ml ONCE ONE Administration Morphine Sulfate 4 mg 12/15/22 00:16 12/15/22 00:25 Morphine Sulfate 4 Mg/Ml Cartridge IM 12/15/22 00:17 4 mg ONCE ONE Administration Protocol Procedures Abscess I/D Site: abdomen (Left lower abdomen) Side (if applicable): left Sedation/analgesia: other (morphine IM) Local Anesthetic: lidocaine 1% Amount of anesthesia used (mL): 5 Technique: incised with blade Amount of fluid expressed (mL): 4 Sent for culture/gram staining?: No Irrigation: Yes Packing used?: none Complications: pain Medical Decision Making Medical Decision Making MDM Narrative: Patient has a cutaneous abscess that appears amenable to incision and drainage. The patient is requesting analgesia prior to incision and drainage. Patient will be given IM morphine prior to procedure. There is no evidence of systemic infection. The patient is afebrile and well-appearing Differential Diagnosis Abscess Cellulitis Ingrown hair Hernia Discharge Plan Discharge Clinical Impression: Abscess of skin or subcutaneous tissue Patient Disposition: Home, Self-Care Instructions: Abscess Incision and Drainage (DC) Additional Instructions: Take cephalexin 4 times daily for the next 7 days Apply warm compresses every 4 hours for the next 3 days Use ibuprofen and Tylenol for discomfort Return for new or worsening symptoms Prescriptions: New cephalexin 500 mg capsule 500 mg PO QID Qty: 28 0RF No Action doxycycline hyclate 100 mg capsule 1 cap PO BID ibuprofen 800 mg tablet 1 tab PO TID melatonin 10 mg capsule 1 cap PO BEDTIME Interventions: ED Discharge Assessment Last Done: 12/15/22 01:36 Discharge Date/Time: 12/15/22 01:39
[2022-12-15] MEDS: Lidocaine HCl 1 % MPF 5 ML VIAL INFILTRATI (00:25)
[2022-12-15] MEDS: Morphine Sulfate 4 MG/ML CARTRIDGE IM (00:25)
[2022-12-15] MEDS: Acetaminophen 325 MG TABLET 650 MG PO (00:59)
--- NOTE | 2022-12-15 01:02 | PC.NURSE ---
this RN and PA Sagar in room to drain abscess. Pt tolerated not well, morphine provided prior per MAR as well. Pt is now okay resting comfortably, respirations even and unlabored, no apparent distress, listening to music
== END 2022-12-15 01:39 | disposition home or self-care (01) ==
PROVIDERS: Emergency Provider Emergency Medicine
DX: L02.211 Cutaneous abscess of abdominal wall (principal)
CPT/HCPCS: 10060; 96372; 99283; 99284; J2270

== ENCOUNTER 2023-01-03 07:11 | Emergency (ER) | payer OTHER, SELFPAY ==
--- NOTE | ~2023-01-03 | CT_ITS ---
EXAMINATION: CT ABDOMEN AND PELVIS WITH CONTRAST CLINICAL INFORMATION: Rectal pain. Evaluate for any tracking rectal abscess. COMPARISON: 11/27/2022 TECHNIQUE: Multidetector volumetric images were obtained from the superior aspect of the liver through the pubic symphysis following administration 85 mL of Omnipaque 350 intravenous contrast. Sagittal and coronal reformatted images were obtained on the technologist's workstation. Oral contrast: No This CT examination was performed using dose optimization techniques as appropriate, variously including the following: *Automated exposure control *Adjustment of mA and/or kV according to patient size (this includes techniques or standardized protocols for targeted exams where dose is matched to indication/reason for exam; i.e. extremities or head) *Use of iterative reconstruction technique DLP: 510 mGy-cm FINDINGS: LUNG BASES: Normal. No pulmonary consolidation or pleural effusion. LIVER: The liver has normal size, shape, and attenuation. No evidence of liver mass. GALLBLADDER AND BILIARY TREE: Gallbladder is without radiopaque stones, wall thickening or pericholecystic fluid. No dilated bile ducts. PANCREAS: Normal. No edema, pancreatic ductal dilatation or mass. SPLEEN: Normal. ADRENAL GLANDS: Normal. KIDNEYS AND URETERS: The kidneys have normal size and cortical thickness. No perinephric edema or fluid collection. No urolithiasis or hydroureteronephrosis. BLADDER: Normal. No calculi or wall thickening. BOWEL AND PERITONEUM: Stomach and small bowel, including terminal ileum, are unremarkable. No dilated loops of bowel. The appendix is normal. No overt bowel wall thickening or mesenteric fat stranding. No free fluid or pneumoperitoneum. Persistent but decreased edema is present in subcutaneous tissue of the inferomedial right gluteal area. These contrast-enhanced images show enhancement along a perianal tract of approximately 0.6 cm transverse diameter that descends from region of 7-8 o'clock of the distal anal wall. This tract appears to have intersphincteric extension, but is not well seen further distally. Query if there is any draining fistula tract at the gluteal cleft. ABDOMINAL WALL: Unremarkable. VASCULATURE: Normal. LYMPH NODES: No pathologic sized lymph nodes in the abdomen or pelvis. No inguinal lymphadenopathy. PELVIC VISCERA: Unremarkable. MUSCULOSKELETAL: No suspicious bone lesions. 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 Sacroiliac joints are normal. CT/CT abdomen pelvis w IV con IMPRESSION: There appears to be a right-sided perianal fistula tract arising from region of 7-8 o'clock of the anal wall with likely intersphincteric extension, but not well seen further distally. The inflammation/edema in the subcutaneous tissues of the inferomedial right gluteal area has significantly improved compared to 11/27/2022.
[2023-01-03 07:16] VITALS: BP 140/100; PULSE 107
[2023-01-03 07:22] VITALS: BP 168/101; PULSE 83; RESP 18; TEMP 36.7; O2SAT 100; BMI 22.1
[2023-01-03 07:24] VITALS: TEMP 36.7
--- NOTE | 2023-01-03 08:00 | ED_ITS ---
HPI - General Adult General Chief complaint: General Medical Stated complaint: BLEEDING LUMP ON BUTTOCK,? D/T FALL T-4 PER EMS Time Seen by Provider: 01/03/23 07:20 Source: patient Mode of arrival: ambulatory Limitations: no limitations History of Present Illness HPI narrative: 22-year-old male with history of HIV, history of rectal abscesses, history of rectal hemorrhage presents to ED for rectal pain. Patient states small lump in rectum denies increasing pain after falling on buttock. Patient has lump before fall. Patient denies any fever, chills, nausea or vomiting. Patient denies any rectal bleeding, or black stools Related Data Home Medications Medication Instructions Recorded Confirmed doxycycline hyclate 100 mg capsule 1 cap PO BID 11/17/21 11/17/21 ibuprofen 800 mg tablet 1 tab PO TID 11/17/21 11/17/21 melatonin 10 mg capsule 1 cap PO BEDTIME 11/17/21 11/17/21 Previous Rx's Medication Instructions Recorded cephalexin 500 mg capsule 500 mg PO QID #28 caps 12/15/22 docusate sodium 100 mg capsule 100 mg PO BID 7 days #14 caps 01/03/23 (Colace) Allergies Allergy/AdvReac Type Severity Reaction Status Date / Time No Known Allergies Allergy Verified 11/17/21 06:36 [No Known Allergies*] Review of Systems Review of Systems: Rectal pain. Yes all other systems are reviewed and are negative PMFSH Past Medical History Medical History HIV (human immunodeficiency virus infection) Social History Social History Alcohol intake: never Patient Tobacco Use Status: Never used Tobacco Smoked in Last 30 Days: Yes Substance Use Type: Marijuana Advance Directives: No Advance Directives Information Provided: No Physical Exam ED Vital Signs: Vital Signs - 24 hr 01/03/23 07:22 01/03/23 07:24 Temperature 98.1 F 98.1 F Pulse Rate 83 Respiratory Rate 18 Blood Pressure 168/101 H Pulse Oximetry 100 Oxygen Delivery Method Room Air BMI result Body Mass Index 22.1 Const General: cooperative, healthy appearing, comfortable, no acute distress, well developed, alert, awake and Physically active Orientation/consciousness: oriented to person, oriented to place, oriented to time and patient oriented x3 HENMT Head: Yes normal to inspection, Yes No palpable skull fracture present, Yes normocephalic, Yes atraumatic and No abrasion Eyes General: appearance normal, both eyes and all related structures Neck Neck: Yes normal visual inspection, Yes full ROM, Yes no lymphadenopathy, Yes no meningeal signs, Yes trachea midline, Yes supple, No anterior neck swelling and No tender Chest Chest palpation & inspection: normal inspection of the chest and normal palpation of entire chest wall Resp Effort & Inspection: normal respiratory effort and able to speak in complete sentences Cardio Jugular venous distension: no JVD Heart sounds: S1 normal heart sound present and S2 normal heart sound present GI Other: Rectal: rectum/anus is inflammed and tenderness. no erythema. Right buttock near rectum anus is very tender and seems to tracking towards anus, but no erythema. patient refuse to digital exam due to significant pain and inflammation. no active bleeding/blood on inspection. stool at anus is brown Inspection: Yes normal to inspection and No abdominal wall ecchymosis Palpation (GI): Soft to palpation, not firm, nontender, no guarding and not rigid General: No CVA tenderness and Yes no CVA tenderness Back/Spine/Pelvis Back: no CVA tenderness, No CVA tenderness and No back tenderness Skin General skin exam: no rashes or lesions noted and elasticity normal Neuro General: oriented to person, oriented to place, oriented to time, patient oriented x3, gait normal, tone normal, moves all extremities, Normal light touch and pain sensation, no meningeal signs, no focal motor deficits and CN's II-XI intact bilaterally Extrem General: Yes normal to inspection and Yes full ROM Psych Appearance: grossly normal, well kempt and not disheveled Course Course Course Narrative: Labs ordered and CT scan IV contras abdomen pelvis ordered to evaluate for possible tracking rectal abscess. Reevaluation(s) Reevaluation #1: Negative for elevated white blood cell count. UA positive for fentanyl and amphetamines. CT scan shows perianal fistula tract on the right side of anus. Spoke with on-call surgeon Dr. Hu who states patient does have anal fistula he can go home. CT scan negative for any abscess. Will Discuss with Dr. Freire, detail supervisor Attending. Time: 11:23 Reevaluation #2: Spoke with Dr. Dangelo who agrees patient could be discharged. Patient was informed of diagnosis and surgical recommendation and told to follow up with surgery Clinic. Patient will be discharged with stool softener and viscous lidocaine. Time: 11:58 Medications Administered Discontinued Medications Generic Name Dose Route Start Last Admin Trade Name Renetta PRN Reason Stop Dose Admin Sodium Chloride 1,000 mls @ 999 mls/hr 01/03/23 08:40 01/03/23 12:59 Ns IV 01/03/23 09:40 Infused .Q1H1M STA Infusion Iohexol 100 ml 01/03/23 10:02 01/03/23 10:06 Iohexol 350 Mg/Ml 100 Ml Infus..Btl IV 01/03/23 10:03 85 ml ONCE ONE Administration Ketorolac Tromethamine 30 mg 01/03/23 08:40 01/03/23 08:55 Ketorolac Tromethamine 30 Mg/Ml Vial IVPUSH 01/03/23 08:41 30 mg ONCE ONE Administration Lidocaine HCl 15 ml 01/03/23 12:30 01/03/23 12:37 Lidocaine Hcl Viscous 2 % 15 Ml Solution MUCOUS MEM 01/03/23 12:31 15 ml ONCE ONE Administration Medical Decision Making Medical Decision Making MDM Narrative: 22-year-old male with history of HIV and drug abuse presents to the ED for rectal pain. Patient had rectal hemorrhage and rectal abscess in the past. Labs are normal. CT scan does shows perianal fistula. Spoke with on-call surgeon states patient can be discharged home and follow-up with clinic. Differential Diagnosis Differential Diagnoses: The differential diagnosis associated with the presentation includes (Perianal fistula, perirectal abscess, cellulitis) Admission/Observation Consideration of admission/observation: Escalation of care including admission/observation considered Consult Healthcare Provider Management of the patient was discussed with: Intermediate Manager (Surgeon Dr. Hu) Lab Data MDM Lab Attestation statement: I reviewed the patient's lab results. 01/03/23 08:20 01/03/23 08:20 Labs: Lab Results 01/03/23 01/03/23 01/03/23 Range/Units 08:20 08:20 08:20 WBC 10.4 (4.8-10.8) X10*3/uL RBC 5.85 H (4.60-5.80) X10*6/uL Hgb 14.0 (14.0-18.0) g/dl Hct 45.2 (42.0-52.0) % MCV 77.3 L (80.0-98.0) fL MCH 23.9 L (27.0-33.0) pg MCHC 31.0 (31.0-36.0) g/dl RDW 15.5 (11.0-16.0) % Plt Count 439 H D (160-400) X10*3/uL MPV 8.2 L (9.4-12.4) fL Immature Gran % (Auto) 0.3 (0.0-0.4) % Neut % (Auto) 59.7 (45-73) % Lymph % (Auto) 28.8 (20-40) % [place] % (Auto) 9.5 (2-11) % Eos % (Auto) 1.3 (0-4) % Baso % (Auto) 0.4 (0-2) % Lymph # (Auto) 3.0 (1.2-4.9) X10*3/uL [place] # (Auto) 1.0 (0.1-1.2) X10*3/uL Eos # (Auto) 0.1 (0.0-0.4) X10*3/uL Baso # (Auto) 0.0 (0.0-0.2) X10*3/uL Abs Immat Gran (auto) 0.03 (0.00-0.03) X10*3/uL Absolute Neuts (auto) 6.2 (2.0-8.3) x10*3/uL Absolute Nucleated RBC 0.000 (0.0-0.012) X10*3/uL Nucleated RBC % (auto) 0.0 (0.0-0.2) /100WBC PT 11.8 (10.0-13.1) SEC INR 1.0 (0.9-1.1) APTT 32.8 (26.0-36.4) SEC Sodium (135-145) mmol/L Potassium (3.3-5.1) mmol/L Chloride (96-108) mmol/L Carbon Dioxide (22-29) mmol/L Anion Gap (12-20) BUN (9-16) mg/dL Creatinine (0.5-1.4) mg/dL Estim Creat Clear Calc Estimated GFR Random Glucose (60-115) mg/dL Calcium (8.4-10.2) mg/dL Total Bilirubin (0.0-1.0) mg/dL AST (5-37) U/L ALT (0-40) U/L Alkaline Phosphatase (39-117) U/L Total Protein (6.5-8.0) g/dL Albumin (3.5-5.0) g/dL Urine Color Yellow Urine Appearance Clear Urine pH 7.5 (5.0-9.0) Ur Specific [place] 1.015 (1.005-1.025) Urine Protein Negative (Neg-Trace) mg/dL Urine Glucose (UA) Negative (Negative) mg/dL Urine Ketones Negative (Negative) mg/dL Urine Blood Negative (Negative) Urine Nitrite Negative (Negative) Ur Leukocyte Esterase Negative (Negative) Urine RBC 0-2 (0-2) /HPF Urine WBC 0-5 (0-5) /HPF Ur Squamous Epith Cells 0-2 (0-2) /HPF Urine Bacteria None Seen (None Seen) Hyaline Casts 0-2 (0-2) /LPF Urine Opiates Screen (Not Detect) Urine Fentanyl Screen (Not Detect) Ur Barbiturates Screen (Not Detect) Ur Phencyclidine Scrn (Not Detect) Ur Amphetamines Screen (Not Detect) U Benzodiazepines Scrn (Not Detect) Urine Cocaine Screen (Not Detect) U Marijuana (THC) Screen (Not Detect) 01/03/23 01/03/23 01/03/23 Range/Units 08:20 08:20 08:20 WBC (4.8-10.8) X10*3/uL RBC (4.60-5.80) X10*6/uL Hgb (14.0-18.0) g/dl Hct (42.0-52.0) % MCV (80.0-98.0) fL MCH (27.0-33.0) pg MCHC (31.0-36.0) g/dl RDW (11.0-16.0) % Plt Count (160-400) X10*3/uL MPV (9.4-12.4) fL Immature Gran % (Auto) (0.0-0.4) % Neut % (Auto) (45-73) % Lymph % (Auto) (20-40) % [place] % (Auto) (2-11) % Eos % (Auto) (0-4) % Baso % (Auto) (0-2) % Lymph # (Auto) (1.2-4.9) X10*3/uL [place] # (Auto) (0.1-1.2) X10*3/uL Eos # (Auto) (0.0-0.4) X10*3/uL Baso # (Auto) (0.0-0.2) X10*3/uL Abs Immat Gran (auto) (0.00-0.03) X10*3/uL Absolute Neuts (auto) (2.0-8.3) x10*3/uL Absolute Nucleated RBC (0.0-0.012) X10*3/uL Nucleated RBC % (auto) (0.0-0.2) /100WBC PT (10.0-13.1) SEC INR (0.9-1.1) APTT (26.0-36.4) SEC Sodium 138 (135-145) mmol/L Potassium 4.2 (3.3-5.1) mmol/L Chloride 104 (96-108) mmol/L Carbon Dioxide 25 (22-29) mmol/L Anion Gap 13 (12-20) BUN 5 L (9-16) mg/dL Creatinine 0.86 (0.5-1.4) mg/dL Estim Creat Clear Calc 124.0 Estimated GFR > 60 Random Glucose 144 H (60-115) mg/dL Calcium 9.0 (8.4-10.2) mg/dL Total Bilirubin 0.3 (0.0-1.0) mg/dL AST 22 (5-37) U/L ALT 21 (0-40) U/L Alkaline Phosphatase 81 (39-117) U/L Total Protein 7.8 (6.5-8.0) g/dL Albumin 4.1 (3.5-5.0) g/dL Urine Color Cancelled Urine Appearance Cancelled Urine pH Cancelled (5.0-9.0) Ur Specific [place] Cancelled (1.005-1.025) Urine Protein Cancelled (Neg-Trace) mg/dL Urine Glucose (UA) Cancelled (Negative) mg/dL Urine Ketones Cancelled (Negative) mg/dL Urine Blood Cancelled (Negative) Urine Nitrite Cancelled (Negative) Ur Leukocyte Esterase Cancelled (Negative) Urine RBC (0-2) /HPF Urine WBC (0-5) /HPF Ur Squamous Epith Cells (0-2) /HPF Urine Bacteria (None Seen) Hyaline Casts (0-2) /LPF Urine Opiates Screen Not Detected (Not Detect) Urine Fentanyl Screen POSITIVE H (Not Detect) Ur Barbiturates Screen Not Detected (Not Detect) Ur Phencyclidine Scrn Not Detected (Not Detect) Ur Amphetamines Screen POSITIVE H (Not Detect) U Benzodiazepines Scrn Not Detected (Not Detect) Urine Cocaine Screen Not Detected (Not Detect) U Marijuana (THC) Screen Not Detected (Not Detect) Independent Interpretation I performed an independent interpretation of an: CT Scan Radiology Impression Discussion of test interpretation with radiology: I have reviewed the radiologist's reading. Prescription Management I considered prescription management with: Other (Stool softener) Discharge Plan Discharge Clinical Impression: Perianal fistula Patient Disposition: Home, Self-Care Instructions: Anorectal Abscess and Anal Fistula (ED) Additional Instructions: Return to the ED for worsening rectal pain, pus discharge, increased swelling, fever, chills, abdominal pain, rectal bleeding, nausea, vomiting, or any other concerning symptoms. Please keep your follow-up appointment with Dr. Hu. Use viscous lidocaine on the anus for relief. You will be given stool softener. Prescriptions: New docusate sodium [Colace] 100 mg capsule 100 mg PO BID 7 Days Qty: 14 0RF No Action doxycycline hyclate 100 mg capsule 1 cap PO BID ibuprofen 800 mg tablet 1 tab PO TID melatonin 10 mg capsule 1 cap PO BEDTIME cephalexin 500 mg capsule 500 mg PO QID Qty: 28 0RF Referrals: Klaus Hu MD [Physician] - (Perianal rectal fistula) Interventions: ED Discharge Assessment Last Done: 01/03/23 13:12 Discharge Date/Time: 01/03/23 13:12 Print Language: Amharic
[2023-01-03 08:26] LABS: MANUAL DIFF FLAG NO
[2023-01-03 08:28] LABS: Basophils Percent Auto 0.4 % (0-2); Eosinophils Absolute Auto 0.1 X10*3/uL (0.0-0.4); Eosinophils Percent Auto 1.3 % (0-4); Hematocrit 45.2 % (42.0-52.0); Imm Gran Abs Auto 0.03 X10*3/uL (0.00-0.03); Imm Gran Pct Auto 0.3 % (0.0-0.4); Lymphocytes Percent Auto 28.8 % (20-40); Mean Corpuscular Hemoglobin 23.9 pg (27.0-33.0); Mean Corpuscular Volume 77.3 fL (80.0-98.0); Mean Platelet Volume 8.2 fL (9.4-12.4); Monocytes Percent Auto 9.5 % (2-11); Neutrophils Absolute Auto 6.2 x10*3/uL (2.0-8.3); Neutrophils Percent Auto 59.7 % (45-73); Platelet Count 439 X10*3/uL (160-400); Red Blood Count 5.85 X10*6/uL (4.60-5.80); Red Cell Distribution Width 15.5 % (11.0-16.0); White Blood Count 10.4 X10*3/uL (4.8-10.8)
[2023-01-03 08:30] LABS: Appearance Urine Clear; Color Urine Yellow; Glucose Urine UA Negative (Negative); Leukocyte Esterase Urine Negative (Negative); Nitrite Urine Negative (Negative); PH 7.5 (5.0-9.0); Specific Gravity - Urine 1.015 (1.005-1.025); Urine Blood Negative (Negative); Urine Ketones Negative (Negative); Urine Protein Negative (Neg-Trace)
[2023-01-03 08:36] LABS: Prothrombin Time 11.8 SEC (10.0-13.1)
[2023-01-03 08:37] LABS: Bacteria Urine None Seen (None Seen); Hyaline Casts Urine 0-2 /LPF (0-2); RBC Urine 0-2 /HPF (0-2); Squamous Epithelial Cell Urine 0-2 /HPF (0-2); WBC Urine 0-5 /HPF (0-5)
[2023-01-03 08:39] LABS: Partial Thromboplastin Time 32.8 SEC (26.0-36.4)
[2023-01-03 08:48] LABS: Alanine Aminotransferase 21 U/L (0-40); Albumin Level 4.1 g/dL (3.5-5.0); Alkaline Phosphatase 81 U/L (39-117); Anion Gap 13 (12-20); Aspartate Amino Transferase 22 U/L (5-37); Bilirubin Total 0.3 mg/dL (0.0-1.0); Blood Urea Nitrogen 5 mg/dL (9-16); Carbon Dioxide 25 mmol/L (22-29); Chloride 104 mmol/L (96-108); Estimated Glomerular Filt Rate > 60; Glucose Random 144 mg/dL (60-115); Potassium 4.2 mmol/L (3.3-5.1); Sodium 138 mmol/L (135-145); Total Protein 7.8 g/dL (6.5-8.0)
[2023-01-03] MEDS: 0.9 % Sodium Chloride 1,000 ML 999 ML IV (08:54)
[2023-01-03] MEDS: Ketorolac Tromethamine 30 MG/ML VIAL IVPUSH (08:55)
[2023-01-03] MEDS: iohexoL 350 MG/ML 100 ML INFUS..BTL IV (10:06)
[2023-01-03 10:48] LABS: Amphetamine Screen Urine POSITIVE (Not Detect); Barbiturates, Urine Not Detected (Not Detect); Benzodiazepines Screen Urine Not Detected (Not Detect); Cannabinoid Screen Urine Not Detected (Not Detect); Cocaine Screen Urine Not Detected (Not Detect); Fentanyl, urine POSITIVE (Not Detect); Opiate Screen Urine Not Detected (Not Detect); Phencyclidine Screen Urine Not Detected (Not Detect)
[2023-01-03] MEDS: Lidocaine HCl Viscous 2 % 15 ML SOLUTION MUCOUS MEM (12:37)
== END 2023-01-03 13:12 | disposition home or self-care (01) ==
PROVIDERS: Physician Assistant; Emergency Provider Emergency Medicine
DX: K60.3 Anal fistula (principal); B20 Human immunodeficiency virus [HIV] disease; F12.90 Cannabis use, unspecified, uncomplicated; F19.10 Other psychoactive substance abuse, uncomplicated; Z79.899 Other long term (current) drug therapy
CPT/HCPCS: 36415; 74177; 80053; 80307; 81001; 81003; 85025; 85610; 85730; 96361; 96374; 99285; J1885; Q9967

== ENCOUNTER 2023-04-09 03:30 | Emergency (ER) | payer OTHER, SELFPAY ==
--- NOTE | 2023-04-09 | ECG_ITS ---
Test Reason : qtc prolongation Blood Pressure : / mmHG Vent. Rate : 092 BPM Atrial Rate : 092 BPM P-R Int : 116 ms QRS Dur : 084 ms QT Int : 336 ms P-R-T Axes : 080 085 057 degrees QTc Int : 415 ms Normal sinus rhythm Normal ECG When compared with ECG of 17-NOV-2021 07:02, No significant change was found Referred By: Sue Leslie Electronically Signed By:EDIS PETTY MD
--- NOTE | ~2023-04-09 | CT_ITS ---
EXAMINATION: CT HEAD WITHOUT CONTRAST CLINICAL INFORMATION: Altered mental status. COMPARISON: None available. TECHNIQUE: Contiguous axial imaging was performed from the skull base to vertex without intravenous administration of contrast. This CT examination was performed using dose optimization techniques as appropriate, variously including the following: *Automated exposure control *Adjustment of mA and/or kV according to patient size (this includes techniques or standardized protocols for targeted exams where dose is matched to indication/reason for exam; i.e. extremities or head) *Use of iterative reconstruction technique DLP: 599 mGy-cm FINDINGS: The brain parenchyma has normal attenuation. The storey-white matter differentiation is well preserved. No evidence of an acute major vascular territory infarction. No intracranial hemorrhage, extra-axial fluid collection, focal mass effect or midline shift. The ventricles have normal size and configuration; no hydrocephalus. The brainstem and cerebellum have a normal appearance. The cerebellar tonsils are in normal position. The calvarium is intact. The visualized paranasal sinuses, mastoid air cells and middle ear cavities are well aerated. The orbits and globes are unremarkable. The temporomandibular joints are normal. CT/CT head/brain wo IV con IMPRESSION: No acute intracranial pathology.
[2023-04-09 03:35] VITALS: PULSE 112; RESP 18; TEMP 36.6; O2SAT 100; BMI 24.6
[2023-04-09 04:40] LABS: Appearance Urine Clear; Color Urine Dark Yellow; Glucose Urine UA Negative (Negative); Leukocyte Esterase Urine Negative (Negative); Nitrite Urine Negative (Negative); PH 6.5 (5.0-9.0); Specific Gravity - Urine >= 1.030 (1.005-1.025); Urine Blood Negative (Negative); Urine Ketones Trace mg/dL (Negative); Urine Protein Trace mg/dL (Neg-Trace)
[2023-04-09 06:02] LABS: Amphetamine Screen Urine POSITIVE (Not Detect); Barbiturates, Urine Not Detected (Not Detect); Benzodiazepines Screen Urine Not Detected (Not Detect); Cannabinoid Screen Urine Not Detected (Not Detect); Cocaine Screen Urine Not Detected (Not Detect); Fentanyl, urine Not Detected (Not Detect); Opiate Screen Urine Not Detected (Not Detect); Phencyclidine Screen Urine Not Detected (Not Detect)
--- NOTE | 2023-04-09 06:06 | PC.NURSE ---
Patient slept through the night, no distress observed/reported, behavior non concerning, care consult ordered for worsening depression and suicidal ideation, pending care team evaluation, patient is currently not on any medication, labs completed/pending result, VSS, will continue to monitor
[2023-04-09 06:24] LABS: Ethanol < 10 mg/dL
[2023-04-09 06:25] LABS: Acetaminophen LAB < 17 mcg/mL (<30); Salicylate < 5.0 mg/dL (15-30)
[2023-04-09 06:29] LABS: Alanine Aminotransferase 28 U/L (0-40); Albumin Level 4.3 g/dL (3.5-5.0); Alkaline Phosphatase 66 U/L (39-117); Anion Gap 12 (12-20); Aspartate Amino Transferase 24 U/L (5-37); Bilirubin Total 0.5 mg/dL (0.0-1.0); Blood Urea Nitrogen 8 mg/dL (9-16); Calcium 9.5 mg/dL (8.4-10.2); Carbon Dioxide 27 mmol/L (22-29); Chloride 104 mmol/L (96-108); Creatinine Clr Calc Pharmacy 112.4; Estimated Glomerular Filt Rate > 60; Glucose Random 89 mg/dL (60-115); Potassium 3.9 mmol/L (3.3-5.1); Sodium 139 mmol/L (135-145); Total Protein 7.9 g/dL (6.5-8.0)
--- NOTE | 2023-04-09 06:37 | ED_ITS ---
HPI - Psych General Chief Complaint: Psychiatric Symptoms Stated Complaint: crisis Time Seen by Provider: 04/09/23 03:39 Source: patient Mode of arrival: ambulatory Limitations: no limitations History of Present Illness HPI Narrative: Patient has history of depression came by ambulance for worsening depression with suicidal ideation, No specific plan denies any HI No history of substance abuse Related Data Home Medications Medication Instructions Recorded Confirmed No Known Home Meds 04/09/23 04/09/23 Allergies Allergy/AdvReac Type Severity Reaction Status Date / Time No Known Allergies Allergy Verified 11/17/21 06:36 [No Known Allergies*] Review of Systems Review of Systems: Yes all other systems are reviewed and are negative [facility] Past Medical History Medical History HIV (human immunodeficiency virus infection) Social History Social History Alcohol intake: never Patient Tobacco Use Status: Never used Tobacco Substance Use Type: Marijuana Advance Directives: No Advance Directives Information Provided: Yes Physical Exam Vital Signs: Vital Signs: Last Vital Signs Temp 97.8 F 04/09/23 03:35 Pulse 112 H 04/09/23 03:35 Resp 18 04/09/23 03:35 Pulse Ox 100 04/09/23 03:35 O2 Del Method Room Air 04/09/23 03:35 BMI result Body Mass Index 24.6 Appearance: Alert. Oriented X3. No acute distress. Eyes: PERRLA, No Nystagmus ENT: Pharynx normal. Oral Mucosa moist Neck: Normal inspection. Neck supple. CVS: Normal heart rate and rhythm. Pulses normal. Respiratory: No respiratory distress. Equal air entry bilateral, no wheezing/rales/rhonchi Abdomen: Soft and nontender. Bowel sounds are present, no mass palpable, no CVA tenderness Skin: Skin warm and dry. Normal skin color. Normal skin turgor. Extremities: No lower extremity edema. No calf tenderness psych: Feel depressed and suicidal no specific plan no hallucination Neuro: Oriented X 3. No motor deficit. No sensory deficit.No cerebellar signs , cranial nerves II-XII intact Medical Decision Making Medical Decision Making MDM Narrative: Patient with major depression with increased suicidal feeling will get care team to evaluate Lab Data [facility] Lab Attestation statement: I reviewed the patient's lab results. 04/09/23 04:00 Labs: Lab Results 04/09/23 04/09/23 04/09/23 Range/Units 03:47 03:57 04:00 Sodium (135-145) mmol/L Potassium (3.3-5.1) mmol/L Chloride (96-108) mmol/L Carbon Dioxide (22-29) mmol/L Anion Gap (12-20) BUN (9-16) mg/dL Creatinine (0.5-1.4) mg/dL Estim Creat Clear Calc Estimated GFR Random Glucose (60-115) mg/dL Calcium (8.4-10.2) mg/dL Total Bilirubin (0.0-1.0) mg/dL AST (5-37) U/L ALT (0-40) U/L Alkaline Phosphatase (39-117) U/L Total Protein (6.5-8.0) g/dL Albumin (3.5-5.0) g/dL Urine Color Dark Yellow Urine Appearance Clear Urine pH 6.5 (5.0-9.0) Ur Specific [place] >= 1.030 H (1.005-1.025) Urine Protein Trace (Neg-Trace) mg/dL Urine Glucose (UA) Negative (Negative) mg/dL Urine Ketones Trace (Negative) mg/dL Urine Blood Negative (Negative) Urine Nitrite Negative (Negative) Ur Leukocyte Esterase Negative (Negative) Salicylates (15-30) mg/dL Urine Opiates Screen Not Detected (Not Detect) Urine Fentanyl Screen Not Detected (Not Detect) Acetaminophen (<30) mcg/mL Ur Barbiturates Screen Not Detected (Not Detect) Ur Phencyclidine Scrn Not Detected (Not Detect) Ur Amphetamines Screen POSITIVE H (Not Detect) U Benzodiazepines Scrn Not Detected (Not Detect) Urine Cocaine Screen Not Detected (Not Detect) U Marijuana (THC) Screen Not Detected (Not Detect) Ethyl Alcohol < 10 mg/dL 04/09/23 04/09/23 Range/Units 04:00 04:00 Sodium 139 (135-145) mmol/L Potassium 3.9 (3.3-5.1) mmol/L Chloride 104 (96-108) mmol/L Carbon Dioxide 27 (22-29) mmol/L Anion Gap 12 (12-20) BUN 8 L (9-16) mg/dL Creatinine 0.98 (0.5-1.4) mg/dL Estim Creat Clear Calc 112.4 Estimated GFR > 60 Random Glucose 89 (60-115) mg/dL Calcium 9.5 (8.4-10.2) mg/dL Total Bilirubin 0.5 (0.0-1.0) mg/dL AST 24 (5-37) U/L ALT 28 (0-40) U/L Alkaline Phosphatase 66 (39-117) U/L Total Protein 7.9 (6.5-8.0) g/dL Albumin 4.3 (3.5-5.0) g/dL Urine Color Urine Appearance Urine pH (5.0-9.0) Ur Specific [place] (1.005-1.025) Urine Protein (Neg-Trace) mg/dL Urine Glucose (UA) (Negative) mg/dL Urine Ketones (Negative) mg/dL Urine Blood (Negative) Urine Nitrite (Negative) Ur Leukocyte Esterase (Negative) Salicylates < 5.0 L (15-30) mg/dL Urine Opiates Screen (Not Detect) Urine Fentanyl Screen (Not Detect) Acetaminophen < 17 (<30) mcg/mL Ur Barbiturates Screen (Not Detect) Ur Phencyclidine Scrn (Not Detect) Ur Amphetamines Screen (Not Detect) U Benzodiazepines Scrn (Not Detect) Urine Cocaine Screen (Not Detect) U Marijuana (THC) Screen (Not Detect) Ethyl Alcohol mg/dL Discharge Plan Discharge Clinical Impression: Depression, Suicidal ideation Patient Disposition: Still a Patient Prescriptions: No Action No Known Home Meds Interventions: [place]-Suicide Risk Severity Scale Last Done: 04/09/23 05:50
[2023-04-09 11:35] VITALS: BP 119/94; PULSE 83; RESP 15; TEMP 36.8; O2SAT 100
[2023-04-09 12:24] LABS: MANUAL DIFF FLAG NO
[2023-04-09 12:35] LABS: Basophils Percent Auto 0.4 % (0-2); Eosinophils Absolute Auto 0.2 X10*3/uL (0.0-0.4); Eosinophils Percent Auto 3.1 % (0-4); Hematocrit 46.4 % (42.0-52.0); Hemoglobin 14.1 g/dl (14.0-18.0); Imm Gran Abs Auto 0.01 X10*3/uL (0.00-0.03); Imm Gran Pct Auto 0.2 % (0.0-0.4); Lymphocytes Absolute Auto 2.2 X10*3/uL (1.2-4.9); Lymphocytes Percent Auto 39.3 % (20-40); Mean Corpuscular HGB Conc 30.4 g/dl (31.0-36.0); Mean Corpuscular Hemoglobin 24.1 pg (27.0-33.0); Mean Corpuscular Volume 79.5 fL (80.0-98.0); Mean Platelet Volume 8.5 fL (9.4-12.4); Monocytes Absolute Auto 0.7 X10*3/uL (0.1-1.2); Monocytes Percent Auto 11.8 % (2-11); Neutrophils Absolute Auto 2.5 x10*3/uL (2.0-8.3); Neutrophils Percent Auto 45.2 % (45-73); Platelet Count 322 X10*3/uL (160-400); Red Blood Count 5.84 X10*6/uL (4.60-5.80); Red Cell Distribution Width 18.3 % (11.0-16.0); White Blood Count 5.5 X10*3/uL (4.8-10.8)
--- NOTE | 2023-04-09 14:54 | MHC.CARE ---
Patient too disorganized to evaluate and determine disposition, he will stay the night for follow up in the morning. Provider updated
--- NOTE | 2023-04-09 14:59 | PHA.MEDREC ---
Pharmacy Consult ? Medication Reconciliation Pharmacy has completed the medication reconciliation. Reviewed med rec done by nursing (Prakash).
[2023-04-10 05:14] VITALS: BP 119/63; PULSE 68; RESP 16; TEMP 36.8; O2SAT 97
--- NOTE | 2023-04-10 07:10 | PC.NURSE ---
Patient slept through the night, no distress observed/reported, behavior non concerning, care consult disposition is THOMAS follow up, patient is currently not on any medication, labs completed/pending result, VSS, will continue to monitor
--- NOTE | 2023-04-10 08:10 | PC.NURSE ---
Woke Pt. Pt states, I feel good He is now eating breakfast. Enc. to shower.
== END 2023-04-10 12:41 | disposition home or self-care (01) ==
PROVIDERS: Social Worker; Emergency Provider Internal Medicine; PCP Physician Assistant Medical
DX: R45.851 Suicidal ideations (principal); F32.A Depression, unspecified; B20 Human immunodeficiency virus [HIV] disease; F12.90 Cannabis use, unspecified, uncomplicated
CPT/HCPCS: 36415; 70450; 80053; 80143; 80179; 80307; 81003; 85025; 93005; 99284; S9485

== ENCOUNTER → 2023-04-09 11:32 | Outpatient (BNV) | payer OTHER, SELFPAY | PROVIDERS: Emergency Provider Internal Medicine; PCP Physician Assistant Medical; Visit Provider Internal Medicine Cardiovascular Disease | DX: I45.81 Long QT syndrome (principal) | CPT/HCPCS: 93010 ==

== ENCOUNTER 2023-09-30 23:51 | Emergency (ER) | payer OTHER, SELFPAY ==
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
[2023-10-01 00:21] VITALS: BP 141/86; PULSE 106; RESP 18; TEMP 36.6; O2SAT 100; BMI 22.6
[2023-10-01 01:10] LABS: MANUAL DIFF FLAG NO
[2023-10-01 01:11] LABS: Basophils Percent Auto 0.3 % (0-2); Eosinophils Absolute Auto 0.1 X10*3/uL (0.0-0.4); Eosinophils Percent Auto 1.6 % (0-4); Hematocrit 44.4 % (42.0-52.0); Imm Gran Abs Auto 0.02 X10*3/uL (0.00-0.03); Imm Gran Pct Auto 0.2 % (0.0-0.4); Lymphocytes Absolute Auto 3.2 X10*3/uL (1.2-4.9); Lymphocytes Percent Auto 35.1 % (20-40); Mean Corpuscular HGB Conc 31.5 g/dl (31.0-36.0); Mean Corpuscular Hemoglobin 25.4 pg (27.0-33.0); Mean Corpuscular Volume 80.6 fL (80.0-98.0); Mean Platelet Volume 8.5 fL (9.4-12.4); Monocytes Absolute Auto 0.9 X10*3/uL (0.1-1.2); Monocytes Percent Auto 9.9 % (2-11); Neutrophils Absolute Auto 4.7 x10*3/uL (2.0-8.3); Neutrophils Percent Auto 52.9 % (45-73); Platelet Count 317 X10*3/uL (160-400); Red Blood Count 5.51 X10*6/uL (4.60-5.80); Red Cell Distribution Width 14.2 % (11.0-16.0)
[2023-10-01 01:30] LABS: Amphetamine Screen Urine POSITIVE (Not Detect); Barbiturates, Urine Not Detected (Not Detect); Benzodiazepines Screen Urine Not Detected (Not Detect); Cannabinoid Screen Urine Not Detected (Not Detect); Cocaine Screen Urine Not Detected (Not Detect); Fentanyl, urine Not Detected (Not Detect); Opiate Screen Urine Not Detected (Not Detect); Phencyclidine Screen Urine Not Detected (Not Detect)
[2023-10-01 01:35] LABS: Alanine Aminotransferase 28 U/L (0-40); Alkaline Phosphatase 75 U/L (39-117); Anion Gap 13 (12-20); Aspartate Amino Transferase 29 U/L (5-37); Bilirubin Direct 0.2 mg/dL (0.0-0.5); Bilirubin Total 0.4 mg/dL (0.0-1.0); Blood Urea Nitrogen 7 mg/dL (9-16); Calcium 9.1 mg/dL (8.4-10.2); Carbon Dioxide 26 mmol/L (22-29); Chloride 104 mmol/L (96-108); Estimated Glomerular Filt Rate > 60; Ethanol < 10 mg/dL; Glucose Random 80 mg/dL (60-115); Potassium 3.8 mmol/L (3.3-5.1); Sodium 139 mmol/L (135-145); Total Protein 7.4 g/dL (6.5-8.0)
[2023-10-01 02:49] VITALS: RESP 16
--- NOTE | 2023-10-01 05:43 | PC.NURSE ---
Pt states he needs to leave at this time due to a personal matter. Provider made aware. Belongings returned to pt Pt ambulatory out of department with steady gait and all personal belongings.
== END 2023-10-01 06:09 | disposition left against medical advice (07) ==
PROVIDERS: Emergency Provider Emergency Medicine
DX: F32.A Depression, unspecified (principal); F41.9 Anxiety disorder, unspecified; B20 Human immunodeficiency virus [HIV] disease; F19.10 Other psychoactive substance abuse, uncomplicated
CPT/HCPCS: 36415; 80053; 80307; 82248; 85025; 99285

== ENCOUNTER 2023-11-09 02:09 | Emergency (ER) | payer OTHER, SELFPAY ==
--- NOTE | ~2023-11-09 | XR_ITS ---
EXAMINATION: XR FOREARM, LEFT CLINICAL INFORMATION: Trauma. Pain. COMPARISON: None available. TECHNIQUE: AP and lateral views of the left forearm were obtained. FINDINGS: The bones and soft tissues are normal. No fracture. Imaged portions of the elbow and wrist are unremarkable. XR/XR forearm LT 2V IMPRESSION: No significant abnormality identified.
--- NOTE | ~2023-11-09 | XR_ITS ---
EXAMINATION: XR FOOT, LEFT CLINICAL INFORMATION: Pain. COMPARISON: None available. TECHNIQUE: AP, lateral, and oblique views of the left foot. FINDINGS: The bone mineralization is normal. No fracture. Alignment is anatomic. Joint spaces are maintained. Soft tissue swelling along the proximal foot and lateral ankle. XR/XR foot LT min 3V IMPRESSION: Soft tissue swelling along the proximal foot and lateral ankle.
--- NOTE | ~2023-11-09 | XR_ITS ---
EXAMINATION: XR TIBIA AND FIBULA, LEFT CLINICAL INFORMATION: Trauma. Pain. COMPARISON: None available. TECHNIQUE: AP and lateral views of the left tibia and fibula were obtained. FINDINGS: The bones and soft tissues are normal. No fracture. No osseous lesions. XR/XR tibia fibula LT 2V IMPRESSION: No significant abnormality identified.
--- NOTE | ~2023-11-09 | XR_ITS ---
EXAMINATION: XR ANKLE, LEFT CLINICAL INFORMATION: Pain. COMPARISON: None available. TECHNIQUE: AP, lateral, and mortise views of the left ankle. FINDINGS: The bone mineralization is normal. There is no acute fracture. There is small corticated bony densities along the inferior medial lateral malleolus. The joint spaces are maintained. There is lateral soft tissue swelling. XR/XR ankle LT min 3V IMPRESSION: 1. No acute fracture or dislocation. 2. Lateral soft tissue swelling.
[2023-11-09 02:18] VITALS: BP 140/85; PULSE 108; RESP 16; TEMP 37.1; O2SAT 96; BMI 23.0
[2023-11-09 04:00] VITALS: BP 139/86; PULSE 95; RESP 16; TEMP 37.1; O2SAT 95
== END 2023-11-09 06:26 | disposition left against medical advice (07) ==
PROVIDERS: Emergency Provider Emergency Medicine
DX: M79.662 Pain in left lower leg (principal); M79.632 Pain in left forearm
CPT/HCPCS: 73090; 73590; 73610; 73630; 99281; 99282

== ENCOUNTER 2024-04-07 18:57 | Emergency (ER) | payer OTHER, SELFPAY ==
--- NOTE | 2024-04-07 19:03 | ED_ITS ---
HPI - Weakness General Chief complaint: Weakness Stated complaint: Weakness Related Data Home Medications ?Medication ?Instructions ?Recorded ?Confirmed No Known Home Meds 04/09/23 04/09/23 Allergies Allergy/AdvReac Type Severity Reaction Status Date / Time No Known Allergies Allergy Verified 04/07/24 19:08 [No Known Allergies*] [facility] Past Medical History Medical History HIV (human immunodeficiency virus infection) Social History Social History Alcohol intake: never Patient Tobacco Use Status: Never used Tobacco Smoked in Last 30 Days: Yes Use of substances other than those prescribed or required for medical reasons: Yes Substance Use Type: Crack/Cocaine Advance Directives: No Advance Directives Information Provided: No Physical Exam 2 Vital Signs: Vital Signs: Last Vital Signs Temp 98.4 F 04/07/24 19:30 Pulse 104 H 04/07/24 19:30 Resp 17 04/07/24 19:30 BP 138/89 04/07/24 19:30 Pulse Ox 100 04/07/24 19:30 O2 Del Method Room Air 04/07/24 19:30 BMI result Body Mass Index 25.5 Course Course Course Narrative: This is a Rapid Medical Exam performed in triage by Huong Lainez PA-C. Full HPI, ROS and PE to be performed by primary ED provider. 23 year-old M w/no sig PMHx presenting to the ED c/o diffuse rash x2 wks, now w/generalized fatigue/weakness & nausea x1 week worsening today. Also reports KIM & dizziness. denies sick contacts or travel. denies drug use or ETOH PE: erythematous rash noted to neck. no palm/sole involvement. lethargic, easily arouable. ?under the influence Plan: EKG, Labs, Tox screen, Viral testing Medical Decision Making Lab Data 04/07/24 19:25 04/07/24 19:25 Labs: Lab Results 04/07/24 Range/Units 19:25 WBC 7.6 (4.8-10.8) X10*3/uL RBC 5.99 H (4.60-5.80) X10*6/uL Hgb 15.4 (14.0-18.0) g/dl Hct 47.6 (42.0-52.0) % MCV 79.5 L (80.0-98.0) fL MCH 25.7 L (27.0-33.0) pg MCHC 32.4 (31.0-36.0) g/dl RDW 16.4 H (11.0-16.0) % Plt Count 261 (160-400) X10*3/uL MPV 8.6 L (9.4-12.4) fL Immature Gran % (Auto) 0.1 (0.0-0.4) % Neut % (Auto) 46.9 (45-73) % Lymph % (Auto) 36.2 (20-40) % [place] % (Auto) 13.1 H (2-11) % Eos % (Auto) 3.3 (0-4) % Baso % (Auto) 0.4 (0-2) % Lymph # (Auto) 2.7 (1.2-4.9) X10*3/uL [place] # (Auto) 1.0 (0.1-1.2) X10*3/uL Eos # (Auto) 0.3 (0.0-0.4) X10*3/uL Baso # (Auto) 0.0 (0.0-0.2) X10*3/uL Abs Immat Gran (auto) 0.01 (0.00-0.03) X10*3/uL Absolute Neuts (auto) 3.5 (2.0-8.3) x10*3/uL Absolute Nucleated RBC 0.000 (0.0-0.012) X10*3/uL Nucleated RBC % (auto) 0.0 (0.0-0.2) /100WBC Sodium 138 (135-145) mmol/L Potassium 3.9 (3.3-5.1) mmol/L Chloride 103 (96-108) mmol/L Carbon Dioxide 24 (22-29) mmol/L Anion Gap 15 (12-20) BUN 13 (9-16) mg/dL Creatinine 0.91 (0.5-1.4) mg/dL Estim Creat Clear Calc 120.0 Estimated GFR > 60 Random Glucose 88 (60-115) mg/dL Calcium 9.6 (8.4-10.2) mg/dL Magnesium 2.1 (1.6-2.6) mg/dL Total Bilirubin 0.3 (0.0-1.0) mg/dL Direct Bilirubin 0.1 (0.0-0.5) mg/dL AST 27 (5-37) U/L ALT 31 (0-40) U/L Alkaline Phosphatase 64 (39-117) U/L Total Protein 7.8 (6.5-8.0) g/dL Albumin 4.1 (3.5-5.0) g/dL A.phagocytophil DNA PCR NOT DETECTED (NOT DETECTED) Babesia microti DNA PCR NOT DETECTED (NOT DETECTED) Borrelia sp DNA (PCR) NOT DETECTED (NOT DETECTED) Lyme Screen IgG & IgM <0.90 index Lyme Progressive Test TNP Borrelia miyamotoi (PCR) NOT DETECTED (NOT DETECTED) E.chaffeensis DNA (PCR) NOT DETECTED (NOT DETECTED) Influenza Type A (PCR) NEGATIVE (Negative) Influenza Type B (PCR) NEGATIVE (Negative) RSV RNA Qual (PCR) NEGATIVE (Negative) SARS-CoV-2 RNA (RT-PCR) NEGATIVE (Negative) Tick-borne Disease PCR SEE NOTE Discharge Plan Discharge Clinical Impression: Weakness Patient Disposition: Left W/O Completing Treatment Prescriptions: No Action No Known Home Meds Discharge Date/Time: 04/07/24 20:07
[2024-04-07 19:06] VITALS: BP 130/99; PULSE 101; RESP 20; TEMP 36.9; O2SAT 97; BMI 25.5
--- NOTE | 2024-04-07 19:09 | ECG_ITS ---
Test Reason : WEAKNESS Blood Pressure : / mmHG Vent. Rate : 099 BPM Atrial Rate : 099 BPM P-R Int : 116 ms QRS Dur : 084 ms QT Int : 320 ms P-R-T Axes : 072 076 049 degrees QTc Int : 410 ms Normal sinus rhythm Normal ECG When compared with ECG of 09-APR-2023 11:32, No significant change was found Referred By: Huong Lainez Electronically Signed By:JUANITA MEEKS
[2024-04-07 19:29] LABS: MANUAL DIFF FLAG NO
[2024-04-07 19:30] VITALS: BP 138/89; PULSE 104; RESP 17; TEMP 36.9; O2SAT 100
[2024-04-07 19:30] LABS: Basophils Percent Auto 0.4 % (0-2); Eosinophils Absolute Auto 0.3 X10*3/uL (0.0-0.4); Eosinophils Percent Auto 3.3 % (0-4); Hematocrit 47.6 % (42.0-52.0); Hemoglobin 15.4 g/dl (14.0-18.0); Imm Gran Abs Auto 0.01 X10*3/uL (0.00-0.03); Imm Gran Pct Auto 0.1 % (0.0-0.4); Lymphocytes Absolute Auto 2.7 X10*3/uL (1.2-4.9); Lymphocytes Percent Auto 36.2 % (20-40); Mean Corpuscular HGB Conc 32.4 g/dl (31.0-36.0); Mean Corpuscular Hemoglobin 25.7 pg (27.0-33.0); Mean Corpuscular Volume 79.5 fL (80.0-98.0); Mean Platelet Volume 8.6 fL (9.4-12.4); Monocytes Percent Auto 13.1 % (2-11); Neutrophils Absolute Auto 3.5 x10*3/uL (2.0-8.3); Neutrophils Percent Auto 46.9 % (45-73); Platelet Count 261 X10*3/uL (160-400); Red Blood Count 5.99 X10*6/uL (4.60-5.80); Red Cell Distribution Width 16.4 % (11.0-16.0); White Blood Count 7.6 X10*3/uL (4.8-10.8)
[2024-04-07 19:48] LABS: Alanine Aminotransferase 31 U/L (0-40); Albumin Level 4.1 g/dL (3.5-5.0); Alkaline Phosphatase 64 U/L (39-117); Anion Gap 15 (12-20); Aspartate Amino Transferase 27 U/L (5-37); Bilirubin Direct 0.1 mg/dL (0.0-0.5); Bilirubin Total 0.3 mg/dL (0.0-1.0); Blood Urea Nitrogen 13 mg/dL (9-16); Calcium 9.6 mg/dL (8.4-10.2); Carbon Dioxide 24 mmol/L (22-29); Chloride 103 mmol/L (96-108); Estimated Glomerular Filt Rate > 60; Glucose Random 88 mg/dL (60-115); Magnesium 2.1 mg/dL (1.6-2.6); Potassium 3.9 mmol/L (3.3-5.1); Sodium 138 mmol/L (135-145); Total Protein 7.8 g/dL (6.5-8.0)
--- NOTE | 2024-04-07 20:03 | PC.NURSE ---
walked by pt's room and he ws standing up. Pt states, I don't wnat to be a bother, I am jsut going to leave. Expalined to pt, he was not a bother, and he needed to stay. pt was very insistent, that he wanted to leave. ED provider made aware. Pt amb slowly and steadily out the door. Informed pt, he could come back anytime. No acute distress noted.
[2024-04-07 20:06] LABS: Influenza A PCR NEGATIVE (Negative); Influenza B PCR NEGATIVE (Negative); Resp Syncy Virus RNA Qual PCR NEGATIVE (Negative); SARS COV2 PCR INHOUSE NEGATIVE (Negative)
[2024-04-08 22:54] LABS: Lyme Abs Screen <0.90 index
[2024-04-09 10:38] LABS: A. Phagocytphilium DNA,RT-PCR NOT DETECTED (NOT DETECTED); Babesia Microti DNA, RT-PCR NOT DETECTED (NOT DETECTED); Borrelia Miyamotoi,DNA RT-PCR NOT DETECTED (NOT DETECTED); E.Chaffeensis DNA RT-PCR NOT DETECTED (NOT DETECTED); Lyme(Borrelia ssp)DNA RT-PCR NOT DETECTED (NOT DETECTED)
== END 2024-04-07 20:07 | disposition left against medical advice (07) ==
PROVIDERS: Physician Assistant; Emergency Provider Emergency Medicine
DX: R53.1 Weakness (principal); Z53.21 Procedure and treatment not carried out due to patient leaving prior to being seen by health care provider; R51.9 Headache, unspecified; B20 Human immunodeficiency virus [HIV] disease
CPT/HCPCS: 0241U; 36415; 80048; 80076; 83735; 85025; 86617; 86618; 87468; 87469; 87478; 87484; 87798; 93005; 99283; 99284

== ENCOUNTER → 2024-04-07 19:09 | Outpatient (BNV) | payer OTHER, SELFPAY | PROVIDERS: Emergency Provider Emergency Medicine; Visit Provider Internal Medicine | DX: R53.1 Weakness (principal) | CPT/HCPCS: 93010 ==

== ENCOUNTER 2024-05-30 20:43 | Emergency (ER) | payer OTHER, SELFPAY ==
[2024-05-30 21:06] VITALS: BP 136/83; PULSE 120; RESP 20; TEMP 36.7; O2SAT 100; BMI 25.1
--- NOTE | 2024-05-30 21:10 | ECG_ITS ---
Test Reason : CHEST PAIN Blood Pressure : / mmHG Vent. Rate : 110 BPM Atrial Rate : 110 BPM P-R Int : 084 ms QRS Dur : 110 ms QT Int : 336 ms P-R-T Axes : 077 083 036 degrees QTc Int : 454 ms Sinus tachycardia with short MT Otherwise normal ECG When compared with ECG of 07-APR-2024 19:11, MT interval has decreased Referred By: Generic ED Physician Electronically Signed By:TOÑA PRASAD
--- NOTE | 2024-05-30 21:21 | ED.GENADULT ---
HPI - General Adult General Chief complaint: Dyspnea Stated complaint: thinks he was poisoned and something in throat Time Seen by Provider: 05/30/24 21:16 Source: patient Mode of arrival: ambulatory Limitations: no limitations History of Present Illness ED Provider: landon WIN narrative: Patient's history of HIV with undetectable viral load apparently had apple drink and felt pain in the throat and muffled voice no rash no itching no history of allergic reaction before prior to the drink patient was fine Related Data Previous Rx's ?Medication ?Instructions ?Recorded diphenhydramine HCl 25 mg capsule 50 mg (2 x 25 mg) PO TID PRN 05/30/24 (Benadryl) allergic reaction #14 caps Allergies Allergy/AdvReac Type Severity Reaction Status Date / Time No Known Allergies Allergy Verified 05/30/24 21:08 [No Known Allergies*] Review of Systems Review of Systems: Yes all other systems are reviewed and are negative [facility] Past Medical History Medical History HIV (human immunodeficiency virus infection) Social History Social History Alcohol intake: never Patient Tobacco Use Status: Never used Tobacco Smoked in Last 30 Days: Yes Use of substances other than those prescribed or required for medical reasons: No Substance Use Type: Crack/Cocaine Advance Directives: No Advance Directives Information Provided: No Do you have a plan to hurt others: No Plan Physical Exam ED Vital Signs: Vital Signs - 24 hr 05/30/24 21:06 05/30/24 22:14 05/30/24 22:51 Temperature 98.1 F Pulse Rate 120 H 111 H 119 H Respiratory Rate 20 18 Blood Pressure 136/83 142/87 H 155/94 H Pulse Oximetry 100 98 Oxygen Delivery Method Room Air Room Air 05/30/24 22:52 Temperature 98.1 F Pulse Rate 119 H Respiratory Rate 18 Blood Pressure 155/94 H Pulse Oximetry 98 Oxygen Delivery Method Room Air BMI result Body Mass Index 25.1 Appearance: Alert. Oriented X3. No acute distress. ENT: Pharynx inflamed uvula with swelling and redness in posterior pharyngeal Folds. Oral Mucosa moist Neck: Normal inspection. Neck supple. CVS: Normal heart rate and rhythm. Pulses normal. Respiratory: No respiratory distress. Equal air entry bilateral, no wheezing/rales/rhonchi Abdomen: Soft and nontender. Bowel sounds are present, Skin: Skin warm and dry. Normal skin color. Normal skin turgor. Extremities: No lower extremity edema. No calf tenderness Neuro: Oriented X 3. Medications Administered Discontinued Medications Generic Name Dose Route Start Last Admin Trade Name Freq PRN Reason Stop Dose Admin Dexamethasone 10 mg 05/30/24 22:33 05/30/24 22:45 Dexamethasone 2 Mg Tablet PO 05/30/24 22:34 10 mg ONCE ONE Administration Diphenhydramine HCl 50 mg 05/30/24 22:33 05/30/24 22:45 Diphenhydramine Hcl 25 Mg Capsule PO 05/30/24 22:34 50 mg ONCE ONE Administration Epinephrine 0.3 mg 05/30/24 21:54 05/30/24 22:14 Epinephrine 1 Mg/Ml Vial IM 05/30/24 21:55 0.3 mg STAT STA Administration Lidocaine HCl 15 ml 05/30/24 22:33 05/30/24 22:45 Lidocaine Hcl Viscous 2 % 15 Ml Solution MUCOUS MEM 05/30/24 22:34 15 ml ONCE ONE Administration Medical Decision Making Medical Decision Making [facility] Narrative: Patient's likely allergic reaction to some came rapid strep was negative patient improved patient was also given Decadron and Benadryl Lab Data [facility] Lab Attestation statement: I reviewed the patient's lab results. Labs: Lab Results 05/30/24 Range/Units 21:28 S. pyogenes GrpA MIKE Negative (Negative) Discharge Plan Discharge Clinical Impression: Allergic reaction Patient Disposition: Home, Self-Care Instructions: General Allergic Reaction (ED) Additional Instructions: Likely had allergic reaction to some chemical Take Benadryl 1-2 tablets every 6 hours as needed Prescriptions: New diphenhydramine HCl [Benadryl] 25 mg capsule 50 mg PO TID PRN (Reason: allergic reaction) Qty: 14 0RF Interventions: ED Discharge Assessment Last Done: 05/30/24 22:52 Discharge Date/Time: 05/30/24 22:52 Print Language: Greek
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
[2024-05-30 21:55] LABS: IDNOW Serial# 08D9AD1C; Strep A Nucleic Acid Negative (Negative)
[2024-05-30 22:14] VITALS: BP 142/87; PULSE 111
[2024-05-30] MEDS: EPINEPHrine 1 MG/ML VIAL 0.3 MG IM (22:14)
[2024-05-30] MEDS: Lidocaine HCl Viscous 2 % 15 ML SOLUTION MUCOUS MEM (22:45)
[2024-05-30] MEDS: dexAMETHasone 2 MG TABLET 10 MG PO (22:45)
[2024-05-30] MEDS: diphenhydrAMINE HCL 25 MG CAPSULE 50 MG PO (22:45)
[2024-05-30 22:51] VITALS: BP 155/94; PULSE 119; RESP 18; O2SAT 98
[2024-05-30 22:52] VITALS: BP 155/94; PULSE 119; RESP 18; TEMP 36.7; O2SAT 98
== END 2024-05-30 22:52 | disposition home or self-care (01) ==
PROVIDERS: Emergency Provider Internal Medicine; PCP Internal Medicine
DX: T78.40XA Allergy, unspecified, initial encounter (principal); R07.0 Pain in throat; X58.XXXA Exposure to other specified factors, initial encounter; B20 Human immunodeficiency virus [HIV] disease
CPT/HCPCS: 87651; 93005; 96372; 99284; 99285; J0171; J8540

== ENCOUNTER 2024-09-11 02:16 | Inpatient (IN) | payer OTHER, SELFPAY ==
--- NOTE | ~2024-09-11 | CT_ITS ---
EXAMINATION: CT ABDOMEN AND PELVIS WITHOUT CONTRAST CLINICAL INFORMATION: Abdominal pain and vomiting. COMPARISON: January 03, 2023 TECHNIQUE: Multidetector volumetric imaging was performed from the superior aspect of the liver through the pubic symphysis. Sagittal and coronal reformatted images were obtained on the technologist's workstation. This CT examination was performed using dose optimization techniques as appropriate, variously including the following: *Automated exposure control *Adjustment of mA and/or kV according to patient size (this includes techniques or standardized protocols for targeted exams where dose is matched to indication/reason for exam; i.e. extremities or head) *Use of iterative reconstruction technique DLP: 449 mGy-cm FINDINGS: LUNG BASES: The visualized lung bases are unremarkable. LIVER, GALLBLADDER, AND BILIARY TREE: The liver is normal in size, shape, and attenuation. No focal hepatic lesion or biliary ductal dilatation is present. Gallbladder appears to be mildly distended. No gallstones are seen. PANCREAS: Unremarkable. SPLEEN: Unremarkable. ADRENAL GLANDS: Unremarkable. KIDNEYS AND URETERS: The kidneys are normal in size, shape, and attenuation. No hydronephrosis, hydroureter, or calculi seen. No perinephric stranding. BLADDER: Unremarkable. GASTROINTESTINAL TRACT: Retained stool. The appendix is not confidently seen as a separate structure. There is no evidence for appendicitis. ABDOMINAL WALL: No significant hernia is appreciated. LYMPH NODES: Normal. VASCULAR: Unremarkable. PELVIC VISCERA: Unremarkable. OSSEOUS STRUCTURES: Unremarkable. CT/CT abdomen pelvis wo IV con IMPRESSION: Retained stool. No evidence for bowel obstruction. Gallbladder appears to be mildly distended. Fleischner guidelines were followed. Electronically signed by: Neftali Elizondo MD 09/11/2024 04:37 AM EST
--- NOTE | ~2024-09-11 | US_ITS ---
EXAMINATION: US ABDOMEN LIMITED CLINICAL INFORMATION: Distended gallbladder with elevated LFTs. COMPARISON: CT abdomen and pelvis without contrast performed earlier same day. No prior ultrasound. TECHNIQUE: Real-time limited imaging of the right upper quadrant abdominal viscera. FINDINGS: PANCREAS: Not imaged. Normal in CT. LIVER: Not imaged. Normal on CT. GALLBLADDER: Gallbladder is distended, and there are small mobile echogenic gallstones within the lumen. There is a nonmobile stone within the neck. There is layering echogenic sludge. There is mild wall thickening up to 5 mm, with edema within the gallbladder wall. Negative sonographic East's sign. COMMON BILE DUCT: Normal in caliber measuring 0.5 cm in diameter. There appears to be a calculus measuring 3 mm within the mid common bile duct. This can also be seen on the CT in retrospect. The duct cannot be visualized distal to this. RIGHT KIDNEY: Not imaged. Normal on CT. FREE FLUID: None. US/US abdomen limited IMPRESSION: 1. Choledocholithiasis secondary to a 3 mm calculus in the mid common duct. In retrospect, this can be seen on the coronal CT images (series 6, image 36), however is extremely subtle. Recommend correlation with MRCP for confirmation. 2. Distended gallbladder with layering sludge, small mobile gallstones, and a nonmobile small stones within the gallbladder neck. Negative sonographic East sign. There is mild wall thickening and edema measuring up to 5 mm. These findings are equivocal for acute cholecystitis, although patient's symptomatology and laboratory findings are most likely explained by the 3 mm common duct calculus. Electronically signed by: Rajeev Cardenas MD 09/11/2024 09:[address] [facility]
--- NOTE | ~2024-09-11 | XR_ITS ---
CLINICAL HISTORY: ET OG tube 1 view chest x-ray Comparison: None Findings: The endotracheal tube terminates in the midthoracic trachea. Enteric tube terminates in the lower esophagus with side port about mid to lower esophagus. Mild bibasilar atelectasis. Cardiac silhouette and mediastinal contours accentuated by AP technique. No pneumothorax or pleural effusion. No displaced rib fracture by radiographs. Calcifications nonspecific about left clavicle. IMPRESSION: 1. Endotracheal tube terminates in the midthoracic trachea. 2. Enteric tube terminates in the lower esophagus. Consider advancing, if clinically indicated and if clinically able. This document has been electronically signed by: Saeed Mckee MD on 09/13/2024 22:35:35
--- NOTE | ~2024-09-11 | MR_ITS ---
CLINICAL HISTORY: seizures MR brain with and without IV contrast. COMPARISON: CT head dated 09/13/24 at 10:15 EST FINDINGS: No abnormal diffusion restriction in the brain parenchyma or extra-axial spaces. No evidence of mass, mass effect or midline shift. No abnormal enhancement. No intracranial hemorrhage or abnormal extra-axial fluid collection. No evidence of hydrocephalus. The basilar cisterns are patent. Cerebellar hemispheres and cerebellar vermis are normal. Fourth ventricle is normal. No brainstem abnormality is identified. Intracranial flow voids are patent. The visualized paranasal sinuses and mastoid air-cells are clear. IMPRESSION: 1. No cause for patient's symptoms identified. No evidence of acute ischemia, enhancing mass or mass effect. This document has been electronically signed by: Allan Mckeon MD on 09/15/2024 16:53:41
--- NOTE | ~2024-09-11 | CT_ITS ---
CLINICAL HISTORY: Seizure CT head without IV contrast Comparison: CT/SR - CT HEAD/BRAIN WO IV CON - 04/09/2023 12:26 PM EDT Findings: The ventricles are normal in configuration. Basilar cisterns intact. No intracranial hemorrhage, mass-effect or midline shift. No extra-axial fluid collections. The parenchyma is unremarkable in attenuation. Acevedo-white matter junction preserved. No evidence of acute large vessel or territorial ischemia. Brainstem and cerebellum unremarkable. The calvarium is intact. The imaged portion of the paranasal sinuses are clear. No mastoid effusions. The orbital contents are unremarkable. Impression: 1. No CT evidence of acute intracranial pathology. This document has been electronically signed by: Epifanio Coronel MD on 09/13/2024 10:51:56
[2024-09-11 02:54] VITALS: BP 144/103; PULSE 82; RESP 18; TEMP 36.8; O2SAT 97; BMI 29.0
--- NOTE | 2024-09-11 02:57 | ED_ITS ---
HPI - Abdominal Pain General Chief Complaint: Abdominal Pain Stated Complaint: Vomiting, stomach pain Time Seen by Provider: 09/11/24 02:39 Source: patient, EMS and old records reviewed Mode of arrival: EMS Limitations: no limitations History of Present Illness ED Provider: DR. Cruz HPI narrative: 24-year-old male brought in by ambulance for evaluation of abdominal pain started 2 hours ago after a friend offered him pizza to eat, patient had history of GI bleed that make the patient anxious anxious, complaining of abdominal pain and feeling anxious. No fever, no chills. Related Data Previous Rx's ?Medication ?Instructions ?Recorded diphenhydramine HCl 25 mg capsule 50 mg (2 x 25 mg) PO TID PRN 05/30/24 (Benadryl) allergic reaction #14 caps Allergies Allergy/AdvReac Type Severity Reaction Status Date / Time No Known Allergies Allergy Verified 09/11/24 02:57 [No Known Allergies*] PMFSH Past Medical History Medical History HIV (human immunodeficiency virus infection) Social History Social History Alcohol intake: never Patient Tobacco Use Status: Never used Tobacco Substance Use Type: Crack/Cocaine Advance Directives: No Do you have a plan to hurt others: No Plan Physical Exam ED Vital Signs: Vital Signs - 24 hr 09/11/24 02:54 Temperature 98.2 F Pulse Rate 82 Respiratory Rate 18 Blood Pressure 144/103 H Pulse Oximetry 97 Oxygen Delivery Method Room Air BMI result Body Mass Index 29.0 Vital signs have been reviewed and appear to be correct. Blood pressure elevated. Heart rate normal. Respiratory rate normal. Temperature normal. Oxygen saturation normal. Appearance: Anxious, Alert. Oriented X3. No acute distress. Head: Normal external exam. Normocephalic. Atraumatic. No Freedman signs noted. No raccoon eyes noted Eyes: PERRLA. EOMI. Conjunctiva and sclera normal. Eyelids normal. ENT: TM's Normal. Pharynx normal. Uvula midline. Moist mucous membranes. No trismus noted. No drooling noted. No muffled voice noted. Neck: Normal inspection. Neck supple. FROM. No adenopathy. Thyroid Normal. No meningeal signs. No neck mass noted. CVS: Normal heart rate and rhythm. Heart sound normal. No murmurs noted. Pulses normal throughout. Respiratory: No respiratory distress. Painless inspiration. Breath sounds normal. No wheezes/rales/rhonchi noted. Chest nontender. No accessory muscle usage noted or decreased air movement noted. Abdomen: Soft, epigastric tenderness, Bowel sounds normal in all 4 quadrants. No distention noted. No organomegaly noted. No visible injury noted. Back: No CVA tenderness. Full range of motion noted. Skin: Skin warm and dry. Normal skin color. Normal skin turgor. No rashes/lesions/lacerations noted. Extremities: No lower extremity edema. Extremities exhibit normal range of motion. Extremities nontender. Neuro: Oriented X 3. Cranial nerve exam: II-XII are grossly intact No motor deficit. No sensory deficit. Reflexes normal. Course Reevaluation(s) Reevaluation #1: Sudden onset of upper abdominal pain and vomiting after eating pizza, acute transaminitis, CT of the abdomen and pelvis is unremarkable except for gallbladder distention, ultrasound of the gallbladder has been ordered, repeat abdominal exam revealed improvement of the abdominal pain and nausea with vomiting, signed out to the upcoming physician for further evaluation. Time: 06:09 Medical Decision Making Differential Diagnosis Differential Diagnoses: The differential diagnosis associated with the presentation includes (Acute cholecystitis, cholelithiasis, gastritis, gastroenteritis, food poisoning, electrolyte derangement, severe anemia, colitis, diverticulitis, pancreatitis.) Admission/Observation Consideration of admission/observation: Escalation of care including admission/observation considered Lab Data MDM Lab Attestation statement: I reviewed the patient's lab results. 09/11/24 02:52 09/11/24 02:52 Labs: Lab Results 09/11/24 09/11/24 09/11/24 Range/Units 02:40 02:41 02:52 WBC 7.9 (4.8-10.8) X10*3/uL RBC 5.52 (4.60-5.80) X10*6/uL Hgb 13.6 L (14.0-18.0) g/dl Hct 43.1 (42.0-52.0) % MCV 78.1 L (80.0-98.0) fL MCH 24.6 L (27.0-33.0) pg MCHC 31.6 (31.0-36.0) g/dl RDW 16.0 (11.0-16.0) % Plt Count 302 (160-400) X10*3/uL MPV 9.0 L (9.4-12.4) fL Immature Gran % (Auto) 0.3 (0.0-0.4) % Neut % (Auto) 50.8 (45-73) % Lymph % (Auto) 38.9 (20-40) % [place] % (Auto) 8.6 (2-11) % Eos % (Auto) 1.0 (0-4) % Baso % (Auto) 0.4 (0-2) % Lymph # (Auto) 3.1 (1.2-4.9) X10*3/uL [place] # (Auto) 0.7 (0.1-1.2) X10*3/uL Eos # (Auto) 0.1 (0.0-0.4) X10*3/uL Baso # (Auto) 0.0 (0.0-0.2) X10*3/uL Abs Immat Gran (auto) 0.02 (0.00-0.03) X10*3/uL Absolute Neuts (auto) 4.0 (2.0-8.3) x10*3/uL Absolute Nucleated RBC 0.000 (0.0-0.012) X10*3/uL Nucleated RBC % (auto) 0.0 (0.0-0.2) /100WBC Sodium 136 (135-145) mmol/L Potassium 3.6 (3.3-5.1) mmol/L Chloride 107 (96-108) mmol/L Carbon Dioxide 19 L (22-29) mmol/L Anion Gap 14 (12-20) BUN 12 (9-16) mg/dL Creatinine 0.74 (0.5-1.4) mg/dL Estim Creat Clear Calc 151.7 Estimated GFR > 60 Random Glucose 104 (60-115) mg/dL Calcium 9.4 (8.4-10.2) mg/dL Total Bilirubin 0.9 (0.0-1.0) mg/dL AST 717 H (5-37) U/L ALT 489 H (0-40) U/L Alkaline Phosphatase 213 H (39-117) U/L Total Protein 7.8 (6.5-8.0) g/dL Albumin 4.1 (3.5-5.0) g/dL Lipase 19 (8-78) U/L Urine Color Dark Yellow Urine Appearance Clear Urine pH 6.0 (5.0-9.0) Ur Specific [place] 1.025 (1.005-1.025) Urine Protein Negative (Neg-Trace) mg/dL Urine Glucose (UA) Negative (Negative) mg/dL Urine Ketones Trace (Negative) mg/dL Urine Blood Negative (Negative) Urine Nitrite Negative (Negative) Ur Leukocyte Esterase Negative (Negative) Urine RBC 0-2 (0-2) /HPF Urine WBC 0-5 (0-5) /HPF Ur Squamous Epith Cells 0-2 (0-2) /HPF Urine Bacteria None Seen (None Seen) Hyaline Casts 0-2 (0-2) /LPF Urine Opiates Screen Not Detected (Not Detect) Ur Buprenorphine Scrn Not Detected (Not Detect) ng/mL Ur Oxycodone Screen Not Detected (Not Detect) ng/mL Urine Methadone Screen Not Detected (Not Detect) ng/mL Urine Fentanyl Screen Not Detected (Not Detect) Ur Barbiturates Screen Not Detected (Not Detect) Ur Phencyclidine Scrn Not Detected (Not Detect) Ur Amphetamines Screen POSITIVE H (Not Detect) U Benzodiazepines Scrn Not Detected (Not Detect) Urine Cocaine Screen Not Detected (Not Detect) U Marijuana (THC) Screen Not Detected (Not Detect) Independent Interpretation I performed an independent interpretation of an: CT Scan (Abdomen and pelvis:Retained stool. No evidence for bowel obstruction. Gallbladder appears to be mildly distended. ) Radiology Impression Discussion of test interpretation with radiology: I have reviewed the radiologist's reading. Medications Administered Discontinued Medications Generic Name Dose Route Start Last Admin Trade Name Freq PRN Reason Stop Dose Admin Al Hydroxide/Mg Hydroxide 30 ml 09/11/24 02:55 09/11/24 03:14 Magnesium Hydrox/Alum Hydrox 30 Ml Oral.Susp PO 09/11/24 02:56 30 ml ONCE ONE Administration Famotidine 20 mg 09/11/24 02:55 09/11/24 03:14 Famotidine/Pf 20 Mg/2 Ml Vial IVPUSH 09/11/24 02:56 20 mg ONCE ONE Administration Sodium Chloride 1,000 mls @ 999 mls/hr 09/11/24 02:55 09/11/24 04:16 Ns IV 09/11/24 03:55 Infused .Q1H1M ONE Infusion Morphine Sulfate 1 mg 09/11/24 02:55 09/11/24 03:14 Morphine Sulfate 2 Mg/Ml Cartridge IVPUSH 09/11/24 02:56 1 mg ONCE ONE Administration Protocol Discharge Plan Discharge Clinical Impression: Transaminitis, Abdominal pain Patient Disposition: Still a Patient Prescriptions: No Action diphenhydramine HCl [Benadryl] 25 mg capsule 50 mg PO TID PRN (Reason: allergic reaction) Qty: 14 0RF Print Language: Urdu
[2024-09-11 02:58] LABS: MANUAL DIFF FLAG NO
[2024-09-11 02:59] LABS: Basophils Percent Auto 0.4 % (0-2); Eosinophils Absolute Auto 0.1 X10*3/uL (0.0-0.4); Hematocrit 43.1 % (42.0-52.0); Hemoglobin 13.6 g/dl (14.0-18.0); Imm Gran Abs Auto 0.02 X10*3/uL (0.00-0.03); Imm Gran Pct Auto 0.3 % (0.0-0.4); Lymphocytes Absolute Auto 3.1 X10*3/uL (1.2-4.9); Lymphocytes Percent Auto 38.9 % (20-40); Mean Corpuscular HGB Conc 31.6 g/dl (31.0-36.0); Mean Corpuscular Hemoglobin 24.6 pg (27.0-33.0); Mean Corpuscular Volume 78.1 fL (80.0-98.0); Monocytes Absolute Auto 0.7 X10*3/uL (0.1-1.2); Monocytes Percent Auto 8.6 % (2-11); Neutrophils Percent Auto 50.8 % (45-73); Platelet Count 302 X10*3/uL (160-400); Red Blood Count 5.52 X10*6/uL (4.60-5.80); White Blood Count 7.9 X10*3/uL (4.8-10.8)
[2024-09-11 03:00] LABS: Appearance Urine Clear; Color Urine Dark Yellow; Glucose Urine UA Negative (Negative); Leukocyte Esterase Urine Negative (Negative); Nitrite Urine Negative (Negative); Specific Gravity - Urine 1.025 (1.005-1.025); Urine Blood Negative (Negative); Urine Ketones Trace mg/dL (Negative); Urine Protein Negative (Neg-Trace)
[2024-09-11 03:11] LABS: Bacteria Urine None Seen (None Seen); Hyaline Casts Urine 0-2 /LPF (0-2); RBC Urine 0-2 /HPF (0-2); Squamous Epithelial Cell Urine 0-2 /HPF (0-2); WBC Urine 0-5 /HPF (0-5)
[2024-09-11 03:14] LABS: Amphetamine Screen Urine POSITIVE (Not Detect); Barbiturates, Urine Not Detected (Not Detect); Benzodiazepines Screen Urine Not Detected (Not Detect); Buprenorphine Scr Not Detected (Not Detect); Cannabinoid Screen Urine Not Detected (Not Detect); Cocaine Screen Urine Not Detected (Not Detect); Fentanyl, urine Not Detected (Not Detect); Methadone Screen, Urine Not Detected (Not Detect); Opiate Screen Urine Not Detected (Not Detect); Oxycodone Screen Urine Not Detected (Not Detect); Phencyclidine Screen Urine Not Detected (Not Detect)
[2024-09-11] MEDS: Morphine Sulfate 2 MG/ML CARTRIDGE 1 MG IVPUSH (03:14)
[2024-09-11] MEDS: Magnesium Hydrox/Alum Hydrox 30 ML ORAL.SUSP PO (03:14)
[2024-09-11] MEDS: Famotidine/PF 20 MG/2 ML VIAL IVPUSH (03:14)
[2024-09-11] MEDS: 0.9 % Sodium Chloride 1,000 ML 999 ML IV (03:15)
[2024-09-11 03:26] LABS: Albumin Level 4.1 g/dL (3.5-5.0); Alkaline Phosphatase 213 U/L (39-117); Anion Gap 14 (12-20); Aspartate Amino Transferase 717 U/L (5-37); Bilirubin Total 0.9 mg/dL (0.0-1.0); Blood Urea Nitrogen 12 mg/dL (9-16); Calcium 9.4 mg/dL (8.4-10.2); Carbon Dioxide 19 mmol/L (22-29); Chloride 107 mmol/L (96-108); Creatinine Clr Calc Pharmacy 151.7; Estimated Glomerular Filt Rate > 60; Glucose Random 104 mg/dL (60-115); Lipase 19 U/L (8-78); Potassium 3.6 mmol/L (3.3-5.1); Sodium 136 mmol/L (135-145); Total Protein 7.8 g/dL (6.5-8.0)
--- NOTE | 2024-09-11 03:30 | MHC.EDTECH ---
EKG cancelled per doctor's orders
[2024-09-11 03:37] LABS: Alanine Aminotransferase 489 U/L (0-40)
[2024-09-11 07:50] VITALS: BP 141/73; PULSE 98; RESP 18; TEMP 36.5; O2SAT 100
--- NOTE | 2024-09-11 09:22 | PC.NURSE ---
PT SLEEPING MOSTLY WHEN HE DOES WAKE UP HE IS ASKING FOR BREAKFAST, AWAITING US RESULTS. PT REMAINS NPO
[2024-09-11] MEDS: Ketorolac Tromethamine 15 MG/ML VIAL IVPUSH (11:14)
--- NOTE | 2024-09-11 11:32 | PC.NURSE ---
PT is becoming restless and agitated, PT keeps screaming for his phone, pt's valuables locked by security due to white substance found in his jacket. PT keeps screaming because he is in pain, Provider notified and Toradol was ordered, this nurse advised pt that we had to give the meds 30 mins to see if it would help the pain if not provider said we can order something else for pain. PT keeps screaming he's been here for a while, pt's scans report has resulted.
[2024-09-11] MEDS: LORazepam 2 MG/ML VIAL 1 MG IVPUSH (12:18)
--- NOTE | 2024-09-11 12:19 | P.HPHOSP_ITS ---
History of Present Illness Date of Service: 09/11/24 Attending physician on admission: Fly May Chief Complaint: Abd pain Pt is a 24-year-old male without any known significant PMH not on home medications who presents to the ED with diffuse abdominal pain that began suddenly last night after eating pizza. Patient also complains of nausea, though it is unclear whether has experienced any vomiting. Patient has been noted to have experienced erratic behavior since arrival. Has been restless, agitated, anxious, screaming and yelling since admission. Security was initially called and found a white substance in patient's jacket, the patient denied illicit substance use and stated check it did not belong to him. Patient has also been confused not know a where he was or how he got here, with question of acute intoxication. Tox screen was positive for amphetamines. Patient's baseline mentation unknown. Overall it is very difficult to get a useful interview or exam from patient. Patient primarily complaining of RUQ abdominal pain and also wanting to eat and drink. ? In the ED pt was tachycardic up to 119 and hypertensive up to 155/94. Labs were significant for transaminitis of AST 717, ALT 486, and alk-phos 213. T bili WNL. No leukocytosis. Stable H&H. Renal function baseline. No significant electrolyte abnormalities. UA negative for UTI. Tox screen positive for amphetamines. CT of abdomen and pelvis found retained stool without evidence of bowel obstruction, and mildly distended gallbladder. RUQ ultrasound found choledocholithiasis secondary to 3 mm calculus in mid common duct. Also found distended gallbladder with layering sludge, small mobile gallstones, and small non mobile stone within gallbladder neck with negative East's sign. Pt was treated with famotidine, Mylanta, morphine ketorolac, lorazepam, and IVF. Pt will be admitted to the hospital for treatment and further evaluation of acute cholecystitis. Review of Systems 2 Review of Systems: Negative except for that which is stated in the [facility] Medical History HIV (human immunodeficiency virus infection) Social History Alcohol intake: never Patient Tobacco Use Status: Never used Tobacco Substance Use Type: Crack/Cocaine Advance Directives: No Do you have a plan to hurt others: No Plan Meds Allergies Allergy/AdvReac Type Severity Reaction Status Date / Time No Known Allergies Allergy Verified 09/11/24 02:57 [No Known Allergies*] Physical Exam 2 Vital Signs and Narrative: Vital Signs: Last Vital Signs Temp 97.7 F 09/11/24 07:50 Pulse 98 09/11/24 07:50 Resp 18 09/11/24 07:50 BP 141/73 H 09/11/24 07:50 Pulse Ox 100 09/11/24 07:50 O2 Del Method Room Air 09/11/24 07:50 BMI result Body Mass Index 29.0 General: AOx3, no acute distress Resp: CTA bilaterally CVS: S1, S2, RRR GI: RUQ tenderness with guarding Skin: Warm, dry Neuro: Cranial nerves II-XII grossly intact bilaterally. Motor grossly intact bilaterally Extremities: No edema Psych: Restless, agitated, ?acute intoxication Results Labs 09/11/24 02:52 09/11/24 02:52 Labs: Laboratory Results - last 24 hr 09/11/24 09/11/24 09/11/24 02:40 02:41 02:52 MCV 78.1 L MCH 24.6 L MCHC 31.6 RDW 16.0 Plt Count 302 MPV 9.0 L Immature Gran % (Auto) 0.3 Neut % (Auto) 50.8 Lymph % (Auto) 38.9 [place] % (Auto) 8.6 Eos % (Auto) 1.0 Baso % (Auto) 0.4 Lymph # (Auto) 3.1 [place] # (Auto) 0.7 Eos # (Auto) 0.1 Baso # (Auto) 0.0 Abs Immat Gran (auto) 0.02 Absolute Neuts (auto) 4.0 Absolute Nucleated RBC 0.000 Nucleated RBC % (auto) 0.0 Anion Gap 14 Estim Creat Clear Calc 151.7 Estimated GFR > 60 Random Glucose 104 Calcium 9.4 Total Bilirubin 0.9 AST 717 H ALT 489 H Alkaline Phosphatase 213 H Total Protein 7.8 Albumin 4.1 Lipase 19 Urine Color Dark Yellow Urine Appearance Clear Urine pH 6.0 Ur Specific [place] 1.025 Urine Protein Negative Urine Glucose (UA) Negative Urine Ketones Trace Urine Blood Negative Urine Nitrite Negative Ur Leukocyte Esterase Negative Urine RBC 0-2 Urine WBC 0-5 Ur Squamous Epith Cells 0-2 Urine Bacteria None Seen Hyaline Casts 0-2 Urine Opiates Screen Not Detected Ur Buprenorphine Scrn Not Detected Ur Oxycodone Screen Not Detected Urine Methadone Screen Not Detected Urine Fentanyl Screen Not Detected Ur Barbiturates Screen Not Detected Ur Phencyclidine Scrn Not Detected Ur Amphetamines Screen POSITIVE H U Benzodiazepines Scrn Not Detected Urine Cocaine Screen Not Detected U Marijuana (THC) Screen Not Detected Imaging Radiologist's Impressions: Impressions Abdomen/Pelvis CT 09/11/24 02:55 IMPRESSION: Retained stool. No evidence for bowel obstruction. Gallbladder appears to be mildly distended. Fleischner guidelines were followed. Electronically signed by: Neftali Elizondo MD 09/11/2024 04:37 AM EST RP Abdomen Ultrasound 09/11/24 07:42 IMPRESSION: 1. Choledocholithiasis secondary to a 3 mm calculus in the mid common duct. In retrospect, this can be seen on the coronal CT images (series 6, image 36), however is extremely subtle. Recommend correlation with MRCP for confirmation. 2. Distended gallbladder with layering sludge, small mobile gallstones, and a nonmobile small stones within the gallbladder neck. Negative sonographic East sign. There is mild wall thickening and edema measuring up to 5 mm. These findings are equivocal for acute cholecystitis, although patient's symptomatology and laboratory findings are most likely explained by the 3 mm common duct calculus. Electronically signed by: Rajeev Cardenas MD 09/11/2024 09:33 AM EST RP Assessment and Plan (1) Acute cholecystitis: Status: Acute Plan Pt is a 24-year-old male without any known significant PMH not on home medications who presents to the ED with diffuse abdominal pain that began suddenly last night after eating pizza. Pt will be admitted to the hospital for treatment and further evaluation of RUQ abdominal pain concerning for acute cholecystitis. Abdominal pain RUQ ultrasound showing choledocholithiasis with distended gallbladder Concerning for acute cholecystitis No sepsis: Tachycardia, but no fever, tachypnea, or leukocytosis Will cover with Zosyn, started 09/11/2024 Analgesics, antiemetics NPO for likely emergent cholecystitis General surgery consult Anxiety/restlessness Patient has been extremely anxious, agitated, screaming and yelling out, difficult to redirect, intermittently confused Pt's jacket noted to have white substance in pocket by security Question of acute intoxication, ?Crystal meth Tox screen poitive for amphetamines Baseline mentation/disposition unknown Ativan p.r.n. Analgesics for pain management Full Code Attending:?Dr. May DVT Prophylaxis: Pneumatic compression due to impending surgical procedure Pt will require a hospitalization of at least two nights for treatment of?RUQ abdominal pain concerning for acute cholecystitis that will require emergent cholecystectomy. Quality Stroke Does the patient have a stroke diagnosis?: No VTE Prior VTE?: No VTE Risk Level:: Medical - moderate - high VTE Device Contraindication: N/A - Device Ordered VTE Drug Contraindication: Treatment Not Indicated
--- NOTE | 2024-09-11 12:59 | P.CONGS_ITS ---
History of Present Illness Consult details Consult date: 09/11/24 Narrative: Patient was a 24-year-old male who presents here with a proximally 1 day history acute severe right upper quadrant pain radiating through his back. He has never had this report. Because of significant progression of the symptoms, he presents to the emergency department which demonstrated down workup including sonogram cholelithiasis, stone in gallbladder neck, and a question of choledocholithiasis as well. Patient denies ever having been jaundiced before. He has regular bowel habits. Chart was reviewed and patient evaluated. Patient's sister presented and offered also collateral history regarding the patient. Apparently he has a history of drug abuse. He apparently is also HIV positive. [facility] Past Medical History Medical History HIV (human immunodeficiency virus infection) Social History Social History Household Members: None Household Members Other:: sister assisted in answering questions as patient is sleepy Housing: Apartment Do you presently have visiting nurse or other home services: No Alcohol intake: never Patient Tobacco Use Status: Never used Tobacco Use of substances other than those prescribed or required for medical reasons: Yes Substance Use Type: Amphetamines and Methamphetamine Substance Use Frequency: Daily Last Used Substance: Just Prior to Admission Have you been hit, kicked, punched, or otherwise hurt by someone within the past year? If so, by whom?: No Do you feel safe in your current relationship?: No Current Relationship Is there a partner from a previous relationship who is making you feel unsafe now?: No Are you made to feel afraid or neglected: No Advance Directives: No Do you have a plan to hurt others: No Plan Recently lost weight without trying: No Nutrition Risks: No Nutritional Risk Meds Allergies Allergy/AdvReac Type Severity Reaction Status Date / Time No Known Allergies Allergy Verified 09/11/24 02:57 [No Known Allergies*] Active Medications: Current Medications Piperacillin Sod/Tazobactam (Sod 4.5 gm/ Sodium Chloride) 100 mls @ 200 mls/hr IV ONCE ONE Stop: 09/11/24 13:26 Physical Exam 2 Vital Signs: Vital Signs: Last Vital Signs Temp 97.7 F 09/11/24 07:50 Pulse 98 09/11/24 07:50 Resp 18 12/27/24 07:50 BP 141/73 H 09/11/24 07:50 Pulse Ox 100 09/11/24 07:50 O2 Del Method Room Air 09/11/24 07:50 BMI result Body Mass Index 29.0 Const: Other: Patient just received Ativan and is a bit sedated but communicative. He does have significant outbursts of complaining of abdominal pain. Chest: Other: Chest breath sounds bilaterally, HS 1 in 2 GI: Other: Abdomen is thin. Marked right upper quadrant tenderness and positive East's sign. Results Labs 09/11/24 02:52 09/11/24 02:52 Labs: Abnormal lab results 09/11/24 09/11/24 Range/Units 02:41 02:52 Hgb 13.6 L (14.0-18.0) g/dl MCV 78.1 L (80.0-98.0) fL MCH 24.6 L (27.0-33.0) pg MPV 9.0 L (9.4-12.4) fL Carbon Dioxide 19 L (22-29) mmol/L AST 717 H (5-37) U/L ALT 489 H (0-40) U/L Alkaline Phosphatase 213 H (39-117) U/L Ur Amphetamines Screen POSITIVE H (Not Detect) Short CBC 09/11/24 Range/Units 02:52 WBC 7.9 (4.8-10.8) X10*3/uL Hgb 13.6 L (14.0-18.0) g/dl Hct 43.1 (42.0-52.0) % Plt Count 302 (160-400) X10*3/uL BMP 09/11/24 02:52 Sodium 136 Potassium 3.6 Chloride 107 Carbon Dioxide 19 L BUN 12 Creatinine 0.74 Calcium 9.4 Liver Function 09/11/24 Range/Units 02:52 Total Bilirubin 0.9 (0.0-1.0) mg/dL AST 717 H (5-37) U/L ALT 489 H (0-40) U/L Alkaline Phosphatase 213 H (39-117) U/L Albumin 4.1 (3.5-5.0) g/dL Urine 09/11/24 Range/Units 02:40 Urine Color Dark Yellow Urine Appearance Clear Urine pH 6.0 (5.0-9.0) Ur Specific [place] 1.025 (1.005-1.025) Urine Protein Negative (Neg-Trace) mg/dL Urine Glucose (UA) Negative (Negative) mg/dL All other labs normal. Assessment and Plan (1) Acute cholecystitis: Status: Acute (2) Choledocholithiasis: Status: Acute (3) Abdominal pain: Status: Acute (4) Transaminitis: Status: Acute Plan Acute cholecystitis and possible choledocholithiasis. I discussed with the patient therapeutic options which include conservative therapy with IV antibiotics and serial exams and labs, possible MRCP possible ERCP or laparoscopic cholecystectomy with cholangiogram. Patient wishes to proceed with the surgery. Risks, benefits, alternatives laparoscopic possible open cholecystectomy with cholangiogram reviewed with the patient included but not limited to bleeding, infection, recurrence of symptoms, numbness, pain, scarring, bowel or bile duct injury or leak, possible need for ERCP and the patient wishes to proceed. All questions answered. Arrangements were made for this. Procedures Date of Service Date of Service: 09/11/24
--- NOTE | 2024-09-11 13:51 | PC.NURSE ---
Nurse to Nurse given to OR Nurse.
--- NOTE | 2024-09-11 14:05 | PC.NURSE ---
Dr. Maya and Dr. Fall at bedside, patient unable to answer questions from staff, could not open his eyes, groaning. per anesthiologist Dr. Fall patient procedure canceled for today.
--- NOTE | 2024-09-11 15:30 | PM.EVENT ---
Event Note Date of Service: 09/11/24 Event Note: Pt could not be evaluated today for formal GI consultation as was being wheeled down to OR at the time of assessment. Case reviewed with ER provider and surg. Has acute cholecystitis with choledocholithiasis on US. Plan for lap agustin with IOC. If IOC positive, will schedule for ERCP Saturday. Time Spent With Patient Time: Total time managing care of this patient today ____ minutes.
[2024-09-11 15:35] VITALS: BP 121/60; PULSE 89; RESP 16; TEMP 36.3; O2SAT 100
[2024-09-11] MEDS: Piperacillin Sodium/Tazobactam 4.5 GM in 0.9 % Sodium Chloride 100 ML IV (16:00)
[2024-09-11] MEDS: 0.9 % Sodium Chloride Flush 3 ML SYRINGE IVFLUSH ×2 (16:01→19:36)
--- NOTE | 2024-09-11 16:25 | PHA.MEDREC ---
Pharmacy Consult ? Medication Reconciliation Pharmacy has completed the medication reconciliation. Spoke to patient at bedside, he states he takes nothing at home, matches claim history. Last fills were in May.
[2024-09-11 19:20] VITALS: BP 123/82; PULSE 102; RESP 16; TEMP 36.5; O2SAT 98
[2024-09-11] MEDS: LORazepam 1 MG TABLET PO (19:31)
[2024-09-11] MEDS: Piperacillin Sodium/Tazobactam 3.375 GM in 0.9 % Sodium Chloride 50 ML IV (19:31)
[2024-09-11] MEDS: Morphine Sulfate 4 MG/ML CARTRIDGE IVPUSH (19:36)
[2024-09-12] VITALS (9 sets, daily range): BP systolic 110–137; BP diastolic 56–82; PULSE 82–157; RESP 14–20; TEMP 36.2–36.8; O2SAT 98–100
--- NOTE | 2024-09-12 00:50 | MHC.PIE ---
late entry; 09/11 1900 p; pt awake yelling and screaming for food and drink. note; pt is on NPO. i; pt educated on NPO p; pt yelling, screaming and demaning for food in threatening manner and threatening to leave AMA i; nursing supervisor cell efficiency in hallway trying to de escalate pt, security called, md notified-md in room, ok to give food at this time, increase ativan prn to 1mg. e; will cont to monitor
[2024-09-12] MEDS: Piperacillin Sodium/Tazobactam 3.375 GM in 0.9 % Sodium Chloride 50 ML IV ×4 (02:50→20:55)
[2024-09-12] MEDS: LORazepam 1 MG TABLET PO (03:25)
[2024-09-12 06:51] LABS: Anion Gap 9 (12-20); Blood Urea Nitrogen 9 mg/dL (9-16); Calcium 8.6 mg/dL (8.4-10.2); Carbon Dioxide 23 mmol/L (22-29); Chloride 107 mmol/L (96-108); Creatinine Clr Calc Pharmacy 135.3; Estimated Glomerular Filt Rate > 60; Glucose Random 130 mg/dL (60-115); Sodium 135 mmol/L (135-145)
[2024-09-12 06:57] LABS: Hematocrit 42.1 % (42.0-52.0); Hemoglobin 13.4 g/dl (14.0-18.0); Mean Corpuscular HGB Conc 31.8 g/dl (31.0-36.0); Mean Corpuscular Hemoglobin 24.5 pg (27.0-33.0); Mean Platelet Volume 9.2 fL (9.4-12.4); Platelet Count 303 X10*3/uL (160-400); Red Blood Count 5.47 X10*6/uL (4.60-5.80); Red Cell Distribution Width 16.1 % (11.0-16.0); White Blood Count 4.5 X10*3/uL (4.8-10.8)
--- NOTE | 2024-09-12 07:57 | PM.PNGS ---
Subjective Subjective Date of Service: 09/12/24 Interval history: Not unexpected, patient was very combative and difficult with nurses and staff last evening. On exam today, patient was still bordering difficult/belligerent. He states that his abdominal symptoms have completely resolved. Physical Exam Vital Signs: Vital Signs: Last Vital Signs Temp 97.2 F 09/12/24 05:39 Pulse 157 H 09/12/24 05:39 Resp 16 09/12/24 05:39 BP 111/56 L 09/12/24 05:39 Pulse Ox 99 09/12/24 05:39 O2 Del Method Room Air 09/12/24 05:39 BMI result Body Mass Index 29.0 GI: Other: Abdomen is soft, benign Objective Data Active Medications Acetaminophen (Acetaminophen 325 Mg Tablet) 650 mg PO Q6H PRN PRN Reason: Pain, Mild 1-3,fever,headache Calcium Carbonate (Calcium Carbonate 750 Mg Tab.Chew) 750 mg PO Q4H PRN PRN Reason: Heartburn Piperacillin Sod/Tazobactam (Sod 3.375 gm/ Sodium Chloride) 50 mls @ 100 mls/hr IV Q6H [facility] Last Infusion: 09/12/24 03:25 Dose: Infused Documented By: BRE Lorazepam (Lorazepam 1 Mg Tablet) 1 mg PO Q8H PRN PRN Reason: anxiety/restlessness Last Admin: 09/12/24 03:25 Dose: 1 mg Documented By: BRE Magnesium Hydroxide (Milk Of Magnesia 30 Ml Oral.Susp) 30 ml PO DAILY PRN PRN Reason: Constipation Melatonin (Melatonin 3 Mg Tablet) 6 mg PO BEDTIME PRN PRN Reason: Insomnia Morphine Sulfate (Morphine Sulfate 4 Mg/Ml Cartridge) 4 mg IVPUSH Q4H PRN; Protocol PRN Reason: Pain, Severe (Pain Scale 7-10) Last Admin: 09/11/24 19:36 Dose: 4 mg Documented By: BRE Ondansetron HCl (Ondansetron Hcl 4 Mg/2 Ml Vial) 4 mg IVPUSH Q8H PRN PRN Reason: Nausea and Vomiting Sodium Chloride (0.9 % Sodium Chloride Flush 3 Ml Syringe) 3 ml IVFLUSH [facility] Last Admin: 09/11/24 19:36 Dose: 3 ml Documented By: BRE Labs 09/12/24 06:20 09/12/24 06:20 Labs: Laboratory Results - last 24 hr 09/12/24 06:20 MCV 77.0 L MCH 24.5 L MCHC 31.8 RDW 16.1 H Plt Count 303 MPV 9.2 L Absolute Nucleated RBC 0.000 Nucleated RBC % (auto) 0.0 Anion Gap 9 L Estim Creat Clear Calc 135.3 Estimated GFR > 60 Random Glucose 130 H Calcium 8.6 D Procedures Date of Service Date of Service: 09/12/24 Progress Note: A&P Assessment and plan (1) Acute cholecystitis: Status: Acute (2) Transaminitis: Status: Acute (3) Choledocholithiasis: Status: Acute (4) Abdominal pain: Status: Acute Plan A.m. labs; LFTs still pending. At present, patient as noted above has complete resolution of his abdominal symptoms. Patient still needs either GI consult or MRCP to rule out choledocholithiasis. He is somewhat challenging and it would not surprise me if patient were to leave AMA today. Time Spent With Patient Time: Total time managing care of this patient today ____ minutes. Quality Stroke Does the patient have a stroke diagnosis?: No VTE Prior VTE?: No VTE Risk Level:: Medical - moderate - high VTE Device Contraindication: N/A - Device Ordered VTE Drug Contraindication: Treatment Not Indicated
[2024-09-12] MEDS: 0.9 % Sodium Chloride Flush 3 ML SYRINGE IVFLUSH ×3 (07:59→20:55)
[2024-09-12 08:58] LABS: Alanine Aminotransferase 639 U/L (0-40); Albumin Level 3.6 g/dL (3.5-5.0); Alkaline Phosphatase 228 U/L (39-117); Aspartate Amino Transferase 400 U/L (5-37); Bilirubin Direct 2.2 mg/dL (0.0-0.5); Bilirubin Total 2.8 mg/dL (0.0-1.0); Total Protein 6.9 g/dL (6.5-8.0)
[2024-09-12] MEDS: LORazepam 2 MG/ML VIAL 1 MG IVPUSH (11:39)
[2024-09-12] MEDS: Haloperidol Lactate 5 MG/ML VIAL IM (11:39)
--- NOTE | 2024-09-12 12:05 | HO.PM.IMPN ---
Subjective Subjective Date of Service: 09/12/24 Interval History: Agitated in pressured overnight. Repeatedly wanting to sign out AMA. Still unable to complete workup for cholecystitis including MRCP. Was scheduled for lap agustin but anesthesia would not commit Review of Systems Unable to obtain Physical Exam Vital Signs: Vital Signs: Last Vital Signs Temp 97.1 F 09/12/24 08:55 Pulse 85 09/12/24 08:55 Resp 20 09/12/24 08:55 BP 119/63 09/12/24 08:55 Pulse Ox 100 09/12/24 08:55 O2 Del Method Room Air 09/12/24 08:55 BMI result Body Mass Index 29.0 Const: Other: Awake alert; nonsensical Resp: Other: Clear to auscultation bilaterally no rales rhonchi or wheezes Cardio: Other: No S4; positive S1-S2; no S3 murmurs rubs or gallops GI: Other: Soft nontender nondistended normoactive bowel sounds Neuro: Other: Cranial nerves 2-12 grossly intact as tested. Motor is 5/5 all extremities. Sensation is intact. Gait is steady. Thought process scattered Extrem: Other: No edema bilaterally Objective Data Active Medications Acetaminophen (Acetaminophen 325 Mg Tablet) 650 mg PO Q6H PRN PRN Reason: Pain, Mild 1-3,fever,headache Calcium Carbonate (Calcium Carbonate 750 Mg Tab.Chew) 750 mg PO Q4H PRN PRN Reason: Heartburn Piperacillin Sod/Tazobactam (Sod 3.375 gm/ Sodium Chloride) 50 mls @ 100 mls/hr IV Q6H [facility] Last Infusion: 09/12/24 08:32 Dose: Infused Documented By: TETE Lorazepam (Lorazepam 1 Mg Tablet) 1 mg PO Q8H PRN PRN Reason: anxiety/restlessness Last Admin: 09/12/24 03:25 Dose: 1 mg Documented By: BRE Magnesium Hydroxide (Milk Of Magnesia 30 Ml Oral.Susp) 30 ml PO DAILY PRN PRN Reason: Constipation Melatonin (Melatonin 3 Mg Tablet) 6 mg PO BEDTIME PRN PRN Reason: Insomnia Morphine Sulfate (Morphine Sulfate 4 Mg/Ml Cartridge) 4 mg IVPUSH Q4H PRN; Protocol PRN Reason: Pain, Severe (Pain Scale 7-10) Last Admin: 09/11/24 19:36 Dose: 4 mg Documented By: BRE Ondansetron HCl (Ondansetron Hcl 4 Mg/2 Ml Vial) 4 mg IVPUSH Q8H PRN PRN Reason: Nausea and Vomiting Sodium Chloride (0.9 % Sodium Chloride Flush 3 Ml Syringe) 3 ml [facility]FLUSH [facility] Last Admin: 09/12/24 07:59 Dose: 3 ml Documented By: TETE Labs 09/12/24 06:20 09/12/24 06:20 Labs: Laboratory Results - last 24 hr 09/12/24 06:20 MCV 77.0 L MCH 24.5 L MCHC 31.8 RDW 16.1 H Plt Count 303 MPV 9.2 L Absolute Nucleated RBC 0.000 Nucleated RBC % (auto) 0.0 Anion Gap 9 L Estim Creat Clear Calc 135.3 Estimated GFR > 60 Random Glucose 130 H Calcium 8.6 D Total Bilirubin 2.8 H Direct Bilirubin 2.2 H AST 400 H ALT 639 H Alkaline Phosphatase 228 H Total Protein 6.9 Albumin 3.6 Assessment and Plan (1) Choledocholithiasis: Status: Acute (2) Altered mental status: Status: Acute Plan Pt is a 24-year-old male without any known significant PMH not on home medications who presents to the ED with diffuse abdominal pain that began suddenly last night after eating pizza. Pt will be admitted to the hospital for treatment and further evaluation of RUQ abdominal pain concerning for acute cholecystitis. 1.Abdominal pain -anesthesia uncomfortable with lap agustin 09/11 -scheduled MRCP for a.m. 09/13 2. Altered mental status versus organic process -required 1 dose of Ativan IV along with Haldol IM for agitation -discussed with psych; we will see later this afternoon or in a.m.. We will try to avoid further sedation for higher yield of exam Full Code Pneumatics Will require ongoing hospitalization to stabilize mental status to facilitate cholecystectomy Quality Stroke Does the patient have a stroke diagnosis?: No VTE Prior VTE?: No VTE Risk Level:: Medical - moderate - high VTE Device Contraindication: N/A - Device Ordered VTE Drug Contraindication: Treatment Not Indicated
--- NOTE | 2024-09-12 12:10 | PC.NURSE ---
Addendum entered by Mrelene Ayers RN 09/12/24 16:26: Pt continues to sleep, awakens to verbal stimuli then falls back to sleep, VSS, see flowchart for values. Addendum entered by Merlene Ayers RN 09/12/24 13:16: MD May at bed side to assess pt. Pt Sleeping, vital signs stable see flow sheet for values. Original Note: MD May made aware pt continues to walk out into hallway yelling I want to go home, I want my mom , at this time pt is unsteady and unbalanced. Attempted to redirect patient multiple times, pt uncooperative, multiple staff members required to redirect patient back into room. Pt pushing and trying to walk past staff members. Pt is alert to self only, pt believes it it 2017, is unable to tell this RN why he is in the hospital or what any of his family members phone numbers are. Security called to bedside, patient then given Lorazepam 1MG IV and Haldol 5MG IM, pt educated on purpose of medications and was willing to take them. Pt refusing first set of vital signs. All safety measures in place.
--- NOTE | 2024-09-12 12:41 | P.CNGI_ITS ---
History of Present Illness Data of Consult Service Date: 09/11/24 Requesting physician: Ambrocio Elliott Primary Care Provider: None Physician HPI Reason for consult: CBD stone This is a 24-year-old gentleman with past medical history of rectal bleeding status post, who presented to the hospital for sudden onset abdominal pain with nausea. History was obtained from the chart as patient was recently medicated for agitation and challenging behaviour. Had come in to the ER on morning of 09/11 after he had sudden onset of abd pain and nausea after consuming fatty food. In the emergency room, he was noted to be tachycardic, which seems to be his baseline. Labs were significant for no white count, microcytosis, LFTs with AST and ALT more than 10 times upper limit normal. Alk-phos 213. Bilirubin normal. Ultrasound abdomen shows distended gallbladder with stone in gallbladder neck, as well as CBD stone in mid distal bile duct. With CBD dilated to 5 mm. Initial plan was for lap agustin 09/11 however due to mental status changes this had to be post-poned. Today, pt remains agitated requesting to leave AMA. On my evaluation he is lethargic and mumbles unintelligibly. C/o lot of pain but per bedside nursing had food last night and this morning without any abd pain, N,V. 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 If so, by whom?: No Do you feel safe in your current relationship?: No Current Relationship Is there a partner from a previous relationship who is making you feel unsafe now?: No Are you made to feel afraid or neglected: No Advance Directives: No Do you have a plan to hurt others: No Plan Recently lost weight without trying: No Nutrition Risks: No Nutritional Risk Meds Allergies Allergy/AdvReac Type Severity Reaction Status Date / Time No Known Allergies Allergy Verified 09/11/24 02:57 [No Known Allergies*] Active Medications: Current Medications Acetaminophen (Acetaminophen 325 Mg Tablet) 650 mg PO Q6H PRN PRN Reason: Pain, Mild 1-3,fever,headache Calcium Carbonate (Calcium Carbonate 750 Mg Tab.Chew) 750 mg PO Q4H PRN PRN Reason: Heartburn Piperacillin Sod/Tazobactam (Sod 3.375 gm/ Sodium Chloride) 50 mls @ 100 mls/hr IV Q6H [facility] Lorazepam (Lorazepam 0.5 Mg Tablet) 0.5 mg PO Q8H PRN PRN Reason: anxiety/restlessness Magnesium Hydroxide (Milk Of Magnesia 30 Ml Oral.Susp) 30 ml PO DAILY PRN PRN Reason: Constipation Melatonin (Melatonin 3 Mg Tablet) 6 mg PO BEDTIME PRN PRN Reason: Insomnia Morphine Sulfate (Morphine Sulfate 4 Mg/Ml Cartridge) 4 mg IVPUSH Q4H PRN; Protocol PRN Reason: Pain, Severe (Pain Scale 7-10) Ondansetron HCl (Ondansetron Hcl 4 Mg/2 Ml Vial) 4 mg IVPUSH Q8H PRN PRN Reason: Nausea and Vomiting Sodium Chloride (0.9 % Sodium Chloride Flush 3 Ml Syringe) 3 ml IVFLUSH QSHIFT [facility] Physical Exam 2 Vital Signs: Vital Signs: Last Vital Signs Temp 97.7 F 09/11/24 07:50 Pulse 98 09/11/24 07:50 Resp 18 09/11/24 07:50 BP 141/73 H 09/11/24 07:50 Pulse Ox 100 09/11/24 07:50 O2 Del Method Room Air 09/11/24 07:50 BMI result Body Mass Index 29.0 young male agitated behaviour, but now lethargic post meds abd soft, with guarding no CAROL Results Labs 09/12/24 06:20 09/12/24 06:20 Labs: Short CBC 09/11/24 Range/Units 02:52 WBC 7.9 (4.8-10.8) X10*3/uL Hgb 13.6 L (14.0-18.0) g/dl Hct 43.1 (42.0-52.0) % Plt Count 302 (160-400) X10*3/uL BMP 09/11/24 02:52 Sodium 136 Potassium 3.6 Chloride 107 Carbon Dioxide 19 L BUN 12 Creatinine 0.74 Calcium 9.4 Liver Function 09/11/24 Range/Units 02:52 Total Bilirubin 0.9 (0.0-1.0) mg/dL AST 717 H (5-37) U/L ALT 489 H (0-40) U/L Alkaline Phosphatase 213 H (39-117) U/L Albumin 4.1 (3.5-5.0) g/dL Urine 09/11/24 Range/Units 02:40 Urine Color Dark Yellow Urine Appearance Clear Urine pH 6.0 (5.0-9.0) Ur Specific [place] 1.025 (1.005-1.025) Urine Protein Negative (Neg-Trace) mg/dL Urine Glucose (UA) Negative (Negative) mg/dL Assessment and Plan (1) Altered mental status: Status: Acute (2) Choledocholithiasis: Status: Acute (3) Acute cholecystitis: Status: Acute (4) Abdominal pain: Status: Acute (5) Transaminitis: Status: Acute Plan Overall presentation consistent with symptomatic gallstones leading to acute cholecystitis and choledocholithiasis. However change in mental status and agitated behaviour has made his inpatient care challenging. Since pt could not undergo lap agustin with IOC yest as outlined above, recommendation for MRCP communicated to the primary team. However, high likelihood that pt's mentation precludes this as well. Primary team looking into psych eval which is reasonable. Cont to trend LFTs Watch for signs of cholangitis such as fevers, spike in white count or bili etc which will warrant urgent biliary drainage for source control. Thank you for allowing me to participate in his care. Please do not hesitate to reach out for any questions or concerns. Procedures Date of Service Date of Service: 09/12/24
--- NOTE | 2024-09-12 13:17 | MHC.CM.PN ---
PT UNABLE TO PROVIDE INFORMATION AT THIS TIME WHEN AWAKE, PT IS AGITATED AND DEMANDING TO LEAVE PT GIVEN IM MEDS FOR AGITATION NO CONTACTS LISTED CM WILL REVISIT WHEN PT IS ABLE TO PARTICIPATE IN ASSESSMENT
[2024-09-13] VITALS (28 sets, daily range): BP systolic 91–143; BP diastolic 38–82; PULSE 72–110; RESP 11–20; TEMP 33–36.9; O2SAT 93–100
--- NOTE | 2024-09-13 00:56 | MHC.PIE ---
p; pt found in room foaming at mouth, snoring/grunting, convulsions. i; nursing sup in room, RR called, md in room. poc taken, EKG taken, vs; 131/74, p 149, o2 98 RA e; pt transferred to [facility], report given, will cont to monitor
[2024-09-13 00:57] LABS: Glucose, Whole Blood 96 mg/dL (60-115)
--- NOTE | 2024-09-13 01:01 | PM.EVENT ---
Event Note Date of Service: 09/13/24 Event Note: The patient experienced a witnessed tonic-clonic seizure, characterized by decerebrate arm posturing and unresponsiveness for approximately one minute. Postictally, the patient returned to normal posture but remained drowsy. Blood glucose was 96, and the ECG showed no significant abnormalities. Initiating Keppra 1000 mg. Obtain laboratory studies, including magnesium and phosphate. CT head. Transfer the patient to Med/Tele for further monitoring. May need Neuro assessment. Suspect drug related seizure, uses amphetamines Time Spent With Patient Time: Total time managing care of this patient today ____ minutes.
[2024-09-13] MEDS: levETIRAcetam in NaCl (iso-os) 1,000 MG/100 ML PIGGYBACK 400 MG IV ×2 (01:10→13:02)
[2024-09-13] MEDS: LORazepam 2 MG/ML VIAL IVPUSH ×5 (01:18→22:00)
[2024-09-13 01:33] LABS: Hematocrit 44.8 % (42.0-52.0); Hemoglobin 14.1 g/dl (14.0-18.0); Mean Corpuscular HGB Conc 31.5 g/dl (31.0-36.0); Mean Corpuscular Hemoglobin 24.4 pg (27.0-33.0); Mean Corpuscular Volume 77.4 fL (80.0-98.0); Mean Platelet Volume 9.2 fL (9.4-12.4); Platelet Count 332 X10*3/uL (160-400); Red Blood Count 5.79 X10*6/uL (4.60-5.80); Red Cell Distribution Width 16.2 % (11.0-16.0); White Blood Count 10.7 X10*3/uL (4.8-10.8)
[2024-09-13] MEDS: Piperacillin Sodium/Tazobactam 3.375 GM in 0.9 % Sodium Chloride 50 ML IV ×2 (01:33→08:32)
[2024-09-13 01:54] LABS: Alanine Aminotransferase 643 U/L (0-40); Albumin Level 4.2 g/dL (3.5-5.0); Anion Gap 21 (12-20); Aspartate Amino Transferase 313 U/L (5-37); Bilirubin Direct 0.7 mg/dL (0.0-0.5); Bilirubin Total 1.3 mg/dL (0.0-1.0); Blood Urea Nitrogen 8 mg/dL (9-16); Calcium 9.2 mg/dL (8.4-10.2); Carbon Dioxide 17 mmol/L (22-29); Chloride 107 mmol/L (96-108); Estimated Glomerular Filt Rate > 60; Glucose Random 84 mg/dL (60-115); Magnesium 2.1 mg/dL (1.6-2.6); Phosphorus 2.8 mg/dL (2.7-4.5); Sodium 141 mmol/L (135-145)
[2024-09-13 02:00] LABS: Lactic Acid 10.3 mmol/L (0.5-2.0)
[2024-09-13] MEDS: Lactated Ringers 1,000 ML 999 ML IV (02:19)
[2024-09-13 02:32] LABS: Alkaline Phosphatase 270 U/L (39-117)
[2024-09-13] MEDS: Lactated Ringers 1,000 ML 150 ML IVCONT (03:25)
[2024-09-13 03:27] LABS: MANUAL DIFF FLAG NO
[2024-09-13 03:28] LABS: Basophils Percent Auto 0.3 % (0-2); Eosinophils Absolute Auto 0.2 X10*3/uL (0.0-0.4); Eosinophils Percent Auto 1.5 % (0-4); Hematocrit 42.5 % (42.0-52.0); Hemoglobin 13.6 g/dl (14.0-18.0); Imm Gran Abs Auto 0.03 X10*3/uL (0.00-0.03); Imm Gran Pct Auto 0.3 % (0.0-0.4); Lymphocytes Absolute Auto 2.7 X10*3/uL (1.2-4.9); Lymphocytes Percent Auto 25.3 % (20-40); Mean Corpuscular Hemoglobin 24.4 pg (27.0-33.0); Mean Corpuscular Volume 76.2 fL (80.0-98.0); Mean Platelet Volume 8.9 fL (9.4-12.4); Monocytes Absolute Auto 0.9 X10*3/uL (0.1-1.2); Monocytes Percent Auto 7.9 % (2-11); Neutrophils Percent Auto 64.7 % (45-73); Platelet Count 314 X10*3/uL (160-400); Red Blood Count 5.58 X10*6/uL (4.60-5.80); White Blood Count 10.8 X10*3/uL (4.8-10.8)
[2024-09-13 03:29] LABS: Venous Blood Gas Refer to POC result
[2024-09-13 03:31] LABS: Reflex Lactate? Lactic Acid Added
[2024-09-13 03:31] LABS: VBG Base Excess 0.5 mmol/L; VBG HCO3 26 mmol/L (22-26); VBG pCO2 46 mmHg; VBG pH 7.35 (7.32-7.43); VBG pO2 40 mmHg
[2024-09-13 03:46] LABS: Anion Gap 12 (12-20); Carbon Dioxide 23 mmol/L (22-29); Chloride 108 mmol/L (96-108); Potassium 4.4 mmol/L (3.3-5.1); Sodium 139 mmol/L (135-145)
[2024-09-13 03:48] LABS: Alanine Aminotransferase 548 U/L (0-40); Albumin Level 3.7 g/dL (3.5-5.0); Alkaline Phosphatase 235 U/L (39-117); Anion Gap 13 (12-20); Aspartate Amino Transferase 258 U/L (5-37); Bilirubin Total 1.3 mg/dL (0.0-1.0); Blood Urea Nitrogen 7 mg/dL (9-16); Calcium 8.8 mg/dL (8.4-10.2); Carbon Dioxide 22 mmol/L (22-29); Chloride 108 mmol/L (96-108); Creatinine Clr Calc Pharmacy 129.1; Estimated Glomerular Filt Rate > 60; Glucose Fasting 84 mg/dL (60-99); Potassium 4.4 mmol/L (3.3-5.1); Sodium 139 mmol/L (135-145)
[2024-09-13 04:02] LABS: Lactic Acid 3.2 mmol/L (0.5-2.0)
[2024-09-13 04:02] LABS: Cancel Lactic Acid Canceled
[2024-09-13] MEDS: LORazepam 2 MG/ML VIAL 1 MG IVPUSH (10:22)
--- NOTE | 2024-09-13 11:03 | PC.NURSE ---
Addendum entered by Petrona Lorenzo RN 09/13/24 11:12: correction: decerebrate posturing not decorticate Original Note: CREDIT CARD ASSOCIATE initated dt pt had a seizure that last about 1 min w decorticate posturing and incont of urine. pt desat to 86% at the time, was able to put on his L side w recovery of 100% on RA. 1mg IV ativan given per MD verbal order at bedside. pt was tranferred to ICU.
[2024-09-13] MEDS: cefTRIAXone sodium 2 GM VIAL IVPUSH (11:17)
--- NOTE | 2024-09-13 11:32 | P.PNGS_ITS ---
Subjective Subjective Date of Service: 09/13/24 Interval history: Underwent to evaluate patient today, he was postictal and was being transported down for urgent CAT scan of his head. Physical Exam 2 Vital Signs: Vital Signs: Last Vital Signs Temp 97.2 F 09/13/24 08:00 Pulse 82 09/13/24 08:00 Resp 17 09/13/24 08:00 BP 109/60 09/13/24 08:00 Pulse Ox 93 09/13/24 08:00 O2 Del Method Room Air 09/13/24 08:00 BMI result Body Mass Index 29.0 GI: Other: Exam was very suboptimal but abdomen. The be benign. Objective Data Active Medications Acetaminophen (Acetaminophen 325 Mg Tablet) 650 mg PO Q6H PRN PRN Reason: Pain, Mild 1-3,fever,headache Calcium Carbonate (Calcium Carbonate 750 Mg Tab.Chew) 750 mg PO Q4H PRN PRN Reason: Heartburn Ceftriaxone Sodium (Ceftriaxone Sodium 2 Gm Vial) 2 gm IVPUSH Q12H [facility] Last Admin: 09/13/24 11:17 Dose: 2 gm Documented By: LUDA Lactated Ringer's (Lr) 1,000 mls @ 150 mls/hr IVCONT .Q6H40M [facility] Last Admin: 09/13/24 03:25 Dose: 150 mls/hr Documented By: CHELSEY Levetiracetam (Keppra) 1,000 mg in 100 mls @ 400 mls/hr IV Q12H [facility] Vancomycin HCl (Vancomycin/Ns) 2,000 mg in 500 mls @ 250 mls/hr IV ONCE ONE Stop: 09/13/24 12:09 Ampicillin Sodium 2 gm/ Sodium (Chloride) 100 mls @ 200 mls/hr IV Q4H [facility] Acyclovir Sodium 638 mg/ (Sodium Chloride) 262.76 mls @ 262.76 mls/hr IV Q8H [facility] Lorazepam (Lorazepam 1 Mg Tablet) 1 mg PO Q8H PRN PRN Reason: anxiety/restlessness Last Admin: 09/12/24 03:25 Dose: 1 mg Documented By: BRE Magnesium Hydroxide (Milk Of Magnesia 30 Ml Oral.Susp) 30 ml PO DAILY PRN PRN Reason: Constipation Melatonin (Melatonin 3 Mg Tablet) 6 mg PO BEDTIME PRN PRN Reason: Insomnia Morphine Sulfate (Morphine Sulfate 4 Mg/Ml Cartridge) 4 mg IVPUSH Q4H PRN; Protocol PRN Reason: Pain, Severe (Pain Scale 7-10) Last Admin: 09/11/24 19:36 Dose: 4 mg Documented By: BRE Ondansetron HCl (Ondansetron Hcl 4 Mg/2 Ml Vial) 4 mg IVPUSH Q8H PRN PRN Reason: Nausea and Vomiting Pharmacy Consult (Consult Rx Vancomycin Dosing) 1 each MISCELLANE DAILY PRN PRN Reason: Consult order Sodium Chloride (0.9 % Sodium Chloride Flush 3 Ml Syringe) 3 ml IVFLUSH QSHIFT [facility] Last Admin: 09/13/24 08:13 Dose: Not Given Documented By: MATT Non-Admin Reason: IV Running Labs 09/13/24 03:21 09/13/24 03:22 Labs: Laboratory Results - last 24 hr 09/13/24 09/13/24 09/13/24 00:53 01:27 03:21 MCV 77.4 L 76.2 L MCH 24.4 L 24.4 L MCHC 31.5 32.0 RDW 16.2 H 16.0 Plt Count 332 314 MPV 9.2 L 8.9 L Immature Gran % (Auto) 0.3 Neut % (Auto) 64.7 Lymph % (Auto) 25.3 [place] % (Auto) 7.9 Eos % (Auto) 1.5 Baso % (Auto) 0.3 Lymph # (Auto) 2.7 [place] # (Auto) 0.9 Eos # (Auto) 0.2 Baso # (Auto) 0.0 Abs Immat Gran (auto) 0.03 Absolute Neuts (auto) 7.0 Absolute Nucleated RBC 0.000 0.000 Nucleated RBC % (auto) 0.0 0.0 VBG pH VBG pCO2 VBG pO2 VBG HCO3 VBG O2 Saturation VBG Base Excess Anion Gap 21 H 13 Estim Creat Clear Calc 122.0 129.1 Estimated GFR > 60 > 60 POC Glucose 96 Random Glucose 84 Fasting Glucose 84 Lactic Acid 10.3 H* 3.2 H* Calcium 9.2 D 8.8 Phosphorus 2.8 Magnesium 2.1 Total Bilirubin 1.3 H 1.3 H Direct Bilirubin 0.7 H AST 313 H 258 H ALT 643 H 548 H Alkaline Phosphatase 270 H 235 H Total Protein 8.0 7.0 Albumin 4.2 3.7 09/13/24 09/13/24 03:22 03:25 MCV MCH MCHC RDW Plt Count MPV Immature Gran % (Auto) Neut % (Auto) Lymph % (Auto) [place] % (Auto) Eos % (Auto) Baso % (Auto) Lymph # (Auto) [place] # (Auto) Eos # (Auto) Baso # (Auto) Abs Immat Gran (auto) Absolute Neuts (auto) Absolute Nucleated RBC Nucleated RBC % (auto) VBG pH 7.35 VBG pCO2 46 VBG pO2 40 VBG HCO3 26 VBG O2 Saturation 59.0 VBG Base Excess 0.5 Anion Gap 12 Estim Creat Clear Calc Estimated GFR POC Glucose Random Glucose Fasting Glucose Lactic Acid Calcium Phosphorus Magnesium Total Bilirubin Direct Bilirubin AST ALT Alkaline Phosphatase Total Protein Albumin Procedures Date of Service Date of Service: 09/13/24 Progress Note: A&P Assessment and plan (1) Abdominal pain: Status: Acute (2) Transaminitis: Status: Acute Plan Patient currently having workup for his seizures. Labs improving. Was told that he tolerated his diet yesterday. At present, no acute surgical issues. Workup per Medicine. MRCP unable to be done at present Time Spent With Patient Time: Total time managing care of this patient today ____ minutes. Quality Stroke Does the patient have a stroke diagnosis?: No VTE Prior VTE?: No VTE Risk Level:: Medical - moderate - high VTE Device Contraindication: N/A - Device Ordered VTE Drug Contraindication: Treatment Not Indicated
[2024-09-13] MEDS: Midazolam HCl/PF 2 MG/2 ML VIAL 1 MG IVPUSH ×2 (11:55→12:02)
[2024-09-13] MEDS: fentaNYL citrate/PF 100 MCG/2 ML VIAL 50 MCG IVPUSH (11:55)
--- NOTE | 2024-09-13 11:55 | P.CNNE_ITS ---
History of Present Illness Data of Consult Service Date: 09/13/24 Primary Care Provider: None Physician HPI Reason for consult: Seizures 24 years old man apparently with past medical history of HIV disease but his precise recent medicines, if he was taking or not, or not known. He came to hospital with change in mental status and abdominal pain and was noted to be agitated. His initial workup suggested possible gallbladder area pathology that might required further investigation including ERCP. While on the floor, he had to generalized seizures. He was transferred to ICU after he was given lorazepam. When I saw him he was in ICU and sedated not able to provide any history. He was not febrile. His tox screen was positive for amphetamine. Review of Systems 2 Review of Systems: Could not be done PMFSH Past Medical History Medical History HIV (human immunodeficiency virus infection) Social History Social History Household Members: None Household Members Other:: sister assisted in answering questions as patient is sleepy Housing: Apartment Do you presently have visiting nurse or other home services: No Alcohol intake: never Patient Tobacco Use Status: Never used Tobacco Use of substances other than those prescribed or required for medical reasons: Yes Substance Use Type: Amphetamines and Methamphetamine Substance Use Frequency: Daily Last Used Substance: Just Prior to Admission Currently Displaying Signs/Symptoms of Drug Intoxication Withdrawal: No Have you been hit, kicked, punched, or otherwise hurt by someone within the past year? If so, by whom?: No Do you feel safe in your current relationship?: No Current Relationship Is there a partner from a previous relationship who is making you feel unsafe now?: No Are you made to feel afraid or neglected: No Advance Directives: No Do you have a plan to hurt others: No Plan Recently lost weight without trying: No Nutrition Risks: No Nutritional Risk Meds Allergies Allergy/AdvReac Type Severity Reaction Status Date / Time No Known Allergies Allergy Verified 09/11/24 02:57 [No Known Allergies*] Active Medications: Current Medications Acetaminophen (Acetaminophen 325 Mg Tablet) 650 mg PO Q6H PRN PRN Reason: Pain, Mild 1-3,fever,headache Calcium Carbonate (Calcium Carbonate 750 Mg Tab.Chew) 750 mg PO Q4H PRN PRN Reason: Heartburn Ceftriaxone Sodium (Ceftriaxone Sodium 2 Gm Vial) 2 gm IVPUSH Q12H [facility] Last Admin: 09/13/24 11:17 Dose: 2 gm Fentanyl (Fentanyl Citrate/Pf 100 Mcg/2 Ml Vial) 50 mcg IVPUSH ONCE ONE; Protocol Stop: 09/13/24 11:51 Lactated Ringer's (Lr) 1,000 mls @ 150 mls/hr IVCONT .Q6H40M [facility] Last Admin: 09/13/24 03:25 Dose: 150 mls/hr Levetiracetam (Keppra) 1,000 mg in 100 mls @ 400 mls/hr IV Q12H [facility] Vancomycin HCl (Vancomycin/Ns) 2,000 mg in 500 mls @ 250 mls/hr IV ONCE ONE Stop: 09/13/24 12:09 Ampicillin Sodium 2 gm/ Sodium (Chloride) 100 mls @ 200 mls/hr IV Q4H [facility] Acyclovir Sodium 638 mg/ (Sodium Chloride) 262.76 mls @ 262.76 mls/hr IV Q8H [facility] Lorazepam (Lorazepam 1 Mg Tablet) 1 mg PO Q8H PRN PRN Reason: anxiety/restlessness Last Admin: 09/12/24 03:25 Dose: 1 mg Magnesium Hydroxide (Milk Of Magnesia 30 Ml Oral.Susp) 30 ml PO DAILY PRN PRN Reason: Constipation Melatonin (Melatonin 3 Mg Tablet) 6 mg PO BEDTIME PRN PRN Reason: Insomnia Midazolam HCl (Midazolam Hcl/Pf 2 Mg/2 Ml Vial) 1 mg IVPUSH ONCE ONE Stop: 09/13/24 11:51 Morphine Sulfate (Morphine Sulfate 4 Mg/Ml Cartridge) 4 mg IVPUSH Q4H PRN; Protocol PRN Reason: Pain, Severe (Pain Scale 7-10) Last Admin: 09/11/24 19:36 Dose: 4 mg Ondansetron HCl (Ondansetron Hcl 4 Mg/2 Ml Vial) 4 mg IVPUSH Q8H PRN PRN Reason: Nausea and Vomiting Pharmacy Consult (Consult Rx Vancomycin Dosing) 1 each MISCELLANE DAILY PRN PRN Reason: Consult order Sodium Chloride (0.9 % Sodium Chloride Flush 3 Ml Syringe) 3 ml IVFLUSH QSHIFT [facility] Last Admin: 09/13/24 08:13 Dose: Not Given Physical Exam 2 Vital Signs: Vital Signs: Last Vital Signs Temp 97.2 F 09/13/24 08:00 Pulse 82 09/13/24 08:00 Resp 17 09/13/24 08:00 BP 109/60 09/13/24 08:00 Pulse Ox 93 09/13/24 08:00 O2 Del Method Room Air 09/13/24 08:00 BMI result Body Mass Index 29.0 Neuro: Other: Very drowsy sometime moaning and not responsive to verbal stimuli. With pain he was resisting. I was unable to open his eyes. There was no abnormal posturing though he was curled up in flexor position. Plantars were flexor. Deep tendon reflexes were trace to absent. Results Labs 09/13/24 03:21 09/13/24 03:22 Labs: Short CBC 09/13/24 09/13/24 Range/Units 01:27 03:21 WBC 10.7 10.8 (4.8-10.8) X10*3/uL Hgb 14.1 13.6 L (14.0-18.0) g/dl Hct 44.8 42.5 (42.0-52.0) % Plt Count 332 314 (160-400) X10*3/uL BMP 09/13/24 09/13/24 09/13/24 01:27 03:21 03:22 Sodium 141 139 139 Potassium 4.0 4.4 4.4 Chloride 107 108 108 Carbon Dioxide 17 L 22 23 BUN 8 L 7 L Creatinine 0.92 0.87 Calcium 9.2 D 8.8 Liver Function 09/13/24 09/13/24 Range/Units 01:27 03:21 Total Bilirubin 1.3 H 1.3 H (0.0-1.0) mg/dL Direct Bilirubin 0.7 H (0.0-0.5) mg/dL AST 313 H 258 H (5-37) U/L ALT 643 H 548 H (0-40) U/L Alkaline Phosphatase 270 H 235 H (39-117) U/L Albumin 4.2 3.7 (3.5-5.0) g/dL Head CT did not reveal any significant abnormality of acute or chronic nature. Assessment and Plan (1) Generalized convulsive seizures: Status: Acute 24 years old man who came to hospital with agitated confusion and abdominal pain. In hospital, he had apparently to generalized convulsion. He was not febrile, head CT did not reveal any significant chronic or acute abnormality, and is tox screen was positive for amphetamine. Seizures might be related to toxic exposure. For now, loading with levetiracetam was reasonable. I would suggest obtaining an EEG tomorrow and gather proper information about his HIV disease control. Change in mental status with seizures brings the possibility of encephalitis, which should also be ruled out by taking a CSF specimen inappropriate testing. Procedures Date of Service Date of Service: 09/13/24
--- NOTE | 2024-09-13 12:19 | W.PM.CCHP ---
Procedures Date of Service Date of Service: 09/13/24 Lumbar Puncture Lumbar Puncture Comments: After obtaining informed consent from patient's father (as patient is encephalopathic and unable to consent) lumbar puncture was attempted, however procedure was aborted secondary to patient's inability to tolerate it and jerking with attempted puncture.
[2024-09-13] MEDS: Ampicillin Sodium 2 GM in 0.9 % Sodium Chloride 100 ML IV ×3 (12:25→20:33)
--- NOTE | 2024-09-13 12:34 | P.PNCC_ITS ---
Subjective Subjective Date of Service: 09/13/24 Interval History: 24-year-old gentleman with underlying history of HIV unclear if treated and unclear CD4 count, admitted on 09/11/2024 with abdominal pain secondary to acute cholecystitis with choledocholithiasis. Patient evaluated by General surgery and was initially planned for cholecystectomy that was cancer and conservative treatment was continued with empiric broad-spectrum antibiotics. Hospital course further complicated by new onset seizures with 3 tonic-clonic witnessed seizures over the last 12 hours. Patient transferred to intensive care unit on 09/13/2024 in postictal state. LP was attempted however it was not successful. Patient was started on empiric coverage for meningitis. Neurology consultation is pending. Critical Care Time (minutes): 90 Physical Exam 2 Vital Signs: Vital Signs: Last Vital Signs Temp 97.2 F 09/13/24 08:00 Pulse 85 09/13/24 12:00 Resp 17 09/13/24 12:00 BP 111/70 09/13/24 12:00 Pulse Ox 97 09/13/24 12:00 O2 Del Method Room Air 09/13/24 12:00 BMI result Body Mass Index 29.0 Const: General: no acute distress and lethargic (Arousable to painful stimuli and loud commands) Orientation/consciousness: lethargic (Arousable to painful stimuli and loud commands) Eyes: Sclerae: sclerae normal EOM: EOMs intact bilaterally Neck: Neck: Yes no lymphadenopathy, Yes trachea midline and Yes supple Resp: Effort & Inspection: normal respiratory effort and no respiratory distress Auscultation: clear to auscultation bilaterally Cardio: Rate: regular rate Rhythm: regular rhythm Heart sounds: no gallops, no murmurs and no rubs GI: Palpation (GI): Soft to palpation and Other GI palpation findings present ( Nontender) Auscultation: normal bowel sounds Extrem: General: Yes no pedal edema, No clubbing and No cyanosis Objective Data Labs 09/13/24 03:21 09/13/24 03:22 Labs: Laboratory Results - last 24 hr 09/13/24 09/13/24 09/13/24 00:53 01:27 03:21 WBC 10.7 10.8 RBC 5.79 5.58 Hgb 14.1 13.6 L Hct 44.8 42.5 MCV 77.4 L 76.2 L MCH 24.4 L 24.4 L MCHC 31.5 32.0 RDW 16.2 H 16.0 Plt Count 332 314 MPV 9.2 L 8.9 L Immature Gran % (Auto) 0.3 Neut % (Auto) 64.7 Lymph % (Auto) 25.3 [place] % (Auto) 7.9 Eos % (Auto) 1.5 Baso % (Auto) 0.3 Lymph # (Auto) 2.7 [place] # (Auto) 0.9 Eos # (Auto) 0.2 Baso # (Auto) 0.0 Abs Immat Gran (auto) 0.03 Absolute Neuts (auto) 7.0 Absolute Nucleated RBC 0.000 0.000 Nucleated RBC % (auto) 0.0 0.0 VBG pH VBG pCO2 VBG pO2 VBG HCO3 VBG O2 Saturation VBG Base Excess Sodium 141 139 Potassium 4.0 4.4 Chloride 107 108 Carbon Dioxide 17 L 22 Anion Gap 21 H 13 BUN 8 L 7 L Creatinine 0.92 0.87 Estim Creat Clear Calc 122.0 129.1 Estimated GFR > 60 > 60 POC Glucose 96 Random Glucose 84 Fasting Glucose 84 Lactic Acid 10.3 H* 3.2 H* Calcium 9.2 D 8.8 Phosphorus 2.8 Magnesium 2.1 Total Bilirubin 1.3 H 1.3 H Direct Bilirubin 0.7 H AST 313 H 258 H ALT 643 H 548 H Alkaline Phosphatase 270 H 235 H Total Protein 8.0 7.0 Albumin 4.2 3.7 09/13/24 09/13/24 03:22 03:25 WBC RBC Hgb Hct MCV MCH MCHC RDW Plt Count MPV Immature Gran % (Auto) Neut % (Auto) Lymph % (Auto) [place] % (Auto) Eos % (Auto) Baso % (Auto) Lymph # (Auto) [place] # (Auto) Eos # (Auto) Baso # (Auto) Abs Immat Gran (auto) Absolute Neuts (auto) Absolute Nucleated RBC Nucleated RBC % (auto) VBG pH 7.35 VBG pCO2 46 VBG pO2 40 VBG HCO3 26 VBG O2 Saturation 59.0 VBG Base Excess 0.5 Sodium 139 Potassium 4.4 Chloride 108 Carbon Dioxide 23 Anion Gap 12 BUN Creatinine Estim Creat Clear Calc Estimated GFR POC Glucose Random Glucose Fasting Glucose Lactic Acid Calcium Phosphorus Magnesium Total Bilirubin Direct Bilirubin AST ALT Alkaline Phosphatase Total Protein Albumin Progress Note: A&P Assessment and plan (1) Encephalopathy: Status: Acute (2) Acute cholecystitis: Status: Acute (3) Choledocholithiasis: Status: Acute (4) Generalized convulsive seizures: Status: Acute Plan Assessment: 24-year-old gentleman with underlying HIV and amphetamine abuse admitted with acute cholecystitis that is managed conservatively with hospital course complicated by new onset seizures Plan: Neuro: Encephalopathy, unclear etiology, likely septic. Neurology evaluation is pending. LP attempted but patient unable to tolerate bedside procedure, IR LP requested. Patient started on empiric coverage meningitis with acyclovir, cefepime, ampicillin, vancomycin, and general dexamethasone. CT head with no acute findings. No papilledema on physical exam. Cardiac: No acute issues. Pulmonary: No acute issues. Renal: No acute issues. Endo: No acute issues. GI: Acute cholecystitis choledocholithiasis, transaminitis is improving. General surgery service care appreciated. No plan for acute intervention. Continues on broad-spectrum antibiotics. ID: Underlying history of HIV with unclear status. Viral load and CD4 count ordered. Heme/Onc: No acute issues. Psych: No acute issues. Miscellaneous: No acute issues. Prophylaxis: Heparin Diet: NPO Critical care time spent: 90 minutes Quality Stroke Does the patient have a stroke diagnosis?: No VTE Prior VTE?: No VTE Risk Level:: Medical - moderate - high VTE Device Contraindication: N/A - Device Ordered VTE Drug Contraindication: Treatment Not Indicated
--- NOTE | 2024-09-13 12:45 | PM.EVENT ---
Event Note Date of Service: 09/13/24 Event Note: Total of 3 seizures last 12 hours; loaded with IV Keppra however seizures persisted. Given IV Ativan. Transferred to ICU Time Spent With Patient Time: Total time managing care of this patient today ____ minutes.
[2024-09-13] MEDS: dexAMETHasone sod phosphate 10 MG/ML VIAL IVPUSH ×2 (12:48→18:12)
[2024-09-13] MEDS: cefEPime HCl/D5W 2 GM/50 ML PIGGYBACK IV ×2 (13:44→20:34)
[2024-09-13] MEDS: ACYCLOVIR SODIUM IV ×2 (14:20→21:12)
[2024-09-13] MEDS: SODIUM CHLORIDE 0.9% IV ×2 (14:20→21:12)
[2024-09-13] MEDS: vancomycin/NS 2,000 MG/500 ML PLAST..BAG 250 MG IV (14:28)
--- NOTE | 2024-09-13 14:48 | PHA.PROG ---
Admission Date/Time: September 11, 2024 12:57 Indication: OTHER - SUSPECTED MENINGITIS Weight in k.647 kg Adjusted body weight in Kg: [place] body weight in Kg: Obesity Dosing Indication % IBW: BMI 29.1 Serum Creatinine - Last 168 Hours 09/11/24 09/12/24 09/13/24 02:52 06:20 01:27 Creatinine 0.74 0.83 0.92 09/13/24 03:21 Creatinine 0.87 Estimated CrCl and GFR - Last 168 Hours 09/11/24 09/12/24 09/13/24 02:52 06:20 01:27 Estim Creat Clear Calc 151.7 135.3 122.0 Estimated GFR > 60 > 60 > 60 09/13/24 03:21 Estim Creat Clear Calc 129.1 Estimated GFR > 60 Vancomycin Loading Dose: 2000mg X1 Current Vancomycin Dosing Regimen: 1500mg Q12H Vancomycin Monitoring using AUC goal of 400 - 600 range with trough as surrogate marker: 560 Date and Time for next Vancomycin Level to be drawn: 09/14 @1300 Pharmacist Comments on Vancomycin Plan: Starting off treatment a bit more aggressive as patient has potential meningitis. Renal function appears stable, predicted trough 16.3. Getting trough before 3rd dose as 4th dose will be overnight. Vancomycin dosing will take advantage of 140 Proof as a clinical decision support tool that uses Bayesian modeling to calculate individual patient's pharmacokinetic parameters and forecast the patient's drug concentration time course with the target goal AUC 24 range of 400 - 600 mg/L/hr.
--- NOTE | 2024-09-13 15:58 | PC.NURSE ---
Addendum entered by Shanthi Sepulveda RN 09/13/24 18:01: 16:00 patient's sister Divya updated via phone 16:30 pt bladder scanned 642 ml. Last void was ~10:00am. MD notified. Per MD, insert brock catheter for retention. 17:45 brock catheter inserted with several staff members due to patient agitation. Pt remains lethargic at rest, unable to answer questions or follow commands. Pt was unable to void in urinal with cueing prior to brock insertion. 500 ml dark yellow urine drained upon insertion. Original Note: 10:29 KISS MACHINE OPERATOR called for patient Med-tele room 474 Pt having seizure activity. 1mg IV ativan given per MD verbal order at bedside. See KISS MACHINE OPERATOR Assessment. Plan to transfer pt to ICU Assumed care of patient after rapid response. 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 Patient has eyes closed, does not open eyes to sternal rub. Withdraws to painful stimuli. Moans at times, no speech. Neurology consult MD to pt bedside. Recommended LP. 11:50 ICU MD contacted patient father for consent for LP. Consent verified via phone. 11:55 Patient prepared for bedside procedure. Time out performed. Pt positioned left lateral recumbent. 1 mg versed and 50 mcg fentanyl IVP given per MD. 12:02 Pt not tolerating procedure well, movement with palpating stimuli to back. additional 1mg IVP versed given per MD. Pt unable to tolerate LP procedure due to movement. Plan to reschedule procedure for 09/14 with IR. New orders for antibiotics and medications given: vancomycin 2G , acyclovir, cefepime, decadron 10mg IVP. 15:39 Patient repositioned with pad changed. Pt began to have seizure activity. Back arched, neck turned to left side, patient drooling, legs flexed with knees to chest in bed. Oral suctioning initiated. MD notified. 4L oxygen NC applied and 2mg IVP ativan given. Seizure lasted ~4 minutes 15:39-15:43. Pt remains eyes closed, some moaning, moves all extremities spontaneously.
[2024-09-13] MEDS: 0.9 % Sodium Chloride Flush 3 ML SYRINGE IVFLUSH ×2 (17:26→20:42)
[2024-09-13] MEDS: propofoL 200 MG/20 ML VIAL 100 MG IVPUSH (22:10)
--- NOTE | 2024-09-13 22:29 | W.PM.CCHP ---
Procedures Date of Service Date of Service: 09/13/24 Intubation Intubation Comments: Patient is having multiple seizures, requiring intubation for airway protection. Patient intubated with 7 cuffed ET tube under glide scope guidance with visualization of vocal cords, without immediate complications. ET w tube position verified with Chest XRAY. Consent for Procedure: Emergent-no informed consent obtained Time out performed: Yes Sedative: propofol Mg given: 100 Paralytic: rocuronium Mg given: 30 Laryngoscope: fiber optic video scope ET tube size: 7 ET tube uncuffed: No Tube secured depth (cm): 25 Tube secured location: lips Tube placement confirmation: visualized tube passing through cords, equal breath sounds bilaterally, no breath sounds over epigastrium and confirmation by capnometry Patient tolerated procedure: well and no complications Intubation complications: none
--- NOTE | 2024-09-13 22:31 | PM.EVENT ---
Documented by User: Abe Cervantes NP 09/13/24 23:10 Event Note Date of Service: 09/13/24 Event Note: Patient continued to have seizures, requiring emergent intubation for airway protection. Hypotension related to sedation for intubation, no evidence of septic shock. Patient sister, Divya Cramer, notified. Time Spent With Patient Time: Total time managing care of this patient today ____ minutes. Documented by User: Bandar Jauregui MD 09/15/24 10:01 Event Note Date of Service: 09/15/24
[2024-09-13] MEDS: Rocuronium Bromide 50 MG/5 ML VIAL 30 MG IVPUSH (22:32)
[2024-09-13] MEDS: Midazolam HCl/NS 50 MG/50 ML PLAST..BAG IVCONT (22:35)
[2024-09-13] MEDS: propofoL 1,000 MG/100 ML VIAL 24.49 MG IVCONT (22:38)
[2024-09-13] MEDS: fentaNYL citrate/PF 100 MCG/2 ML VIAL IVPUSH (23:19)
[2024-09-13] MEDS: fentaNYL citrate/NS 1,000 MCG/100 ML PLAST..BAG 2.5 MCG IVCONT (23:25)
[2024-09-13] MEDS: Norepinephrine Bitartrate/D5W 8 MG/250 ML PLAST..BAG 7.65 MG IVCONT (23:30)
[2024-09-14] VITALS (45 sets, daily range): BP systolic 102–152; BP diastolic 43–90; PULSE 56–122; RESP 18–20; TEMP 35–37.1; O2SAT 97–100; BMI 25.0
[2024-09-14] MEDS: dexAMETHasone sod phosphate 10 MG/ML VIAL IVPUSH ×4 (01:10→19:22)
[2024-09-14] MEDS: levETIRAcetam in NaCl (iso-os) 1,000 MG/100 ML PIGGYBACK 400 MG IV ×2 (01:10→12:54)
[2024-09-14] MEDS: Ampicillin Sodium 2 GM in 0.9 % Sodium Chloride 100 ML IV ×5 (01:16→15:56)
[2024-09-14] MEDS: Rocuronium Bromide 50 MG/5 ML VIAL IVPUSH (01:28)
[2024-09-14] MEDS: vancomycin HCL 1,500 MG in 0.9 % Sodium Chloride 500 ML 333.33 MG IV (02:07)
[2024-09-14] MEDS: Midazolam HCl/NS 50 MG/50 ML PLAST..BAG IVCONT ×2 (02:51→02:54)
[2024-09-14] MEDS: fentaNYL citrate/NS 1,000 MCG/100 ML PLAST..BAG 20 MCG IVCONT ×4 (02:55→17:21)
--- NOTE | 2024-09-14 03:26 | PC.NURSE ---
CARE ASSUMED 7PM...SEIZURE ACTIVITY AT 7:04PM...ATIVAN 2MG IV WITH RESOLUTION OF SEIZURE ACTIVITY...ACTIVITY LASTED 4 MINUTES TOTAL...AGITATED DURING POST-ICTAL PHASE THEN SEDATE..2ND IV SITE #20 RIGHT UPPER FOREARM STARTED,,,,TRANSFERRED FROM 262-1 TO ROOM 253-1 PER PROVIDER REQUEST...SINUS TACH HR 100'S..BP STABLE ..SAO2 99-100% WITH O2 2 L/M CANNULA...MCCONNELL YELLOW URINE....REPEAT SEIZURE ACTIVITY 10PM..ATIVAN 2MG IV PER PROVIDER..DECISION TO INTUBATE D/T RECURRANT SEIZURE ACTIVITY..INTUBATED 7.0 ETT 25CM BENOIT,,VCV VENT SUPPORT....INTUBATED WITH RORCURONIUM AND PROPOFOL BOLUSES PER NOV....PROPOFOL DRIP TITRATED PER PROVIDER RAPIDLY TO 50 MCG/KG/MIN...AGITATED/ATTEMPTING TO SIT UP IN BED...FENTANYL DRIP STARTED 25 MCG/HR AND RAPIDLY TITRATED TO 200 MCG/HR PER PROVIDER...REMAINED AGITATED/ATTEMPTING TO SIT UP AND GRAB AT LINES/ETT...VERSED 2 MG/HR ADDED PER PROVIDER.....MEDICATED WITH RORCURONIUM 50 MCG IV X1 PER PROVIDER WITH SEDATIVE EFFECT...MULTIPLE ANTIBIOTICS PER NOV...3RD IV SITE #20 STARTED TO LEFT HAND/WRIST...LEVOPHED DRIP STARTED 0.05 MCG/KG/MIN...CURRENTLY 0.03 MCG/KG/MIN...OG-TUBE INSERTED POST-INTUBATION..ADVANCED 3CM PER PROVIDER AFTER CXR REVIEWED
[2024-09-14] MEDS: propofoL 1,000 MG/100 ML VIAL 24.49 MG IVCONT ×6 (03:54→21:37)
[2024-09-14] MEDS: cefEPime HCl/D5W 2 GM/50 ML PIGGYBACK IV ×3 (04:05→21:12)
[2024-09-14 05:05] LABS: VBG HCO3 20 mmol/L (22-26); VBG pCO2 26 mmHg; VBG pH 7.47 (7.32-7.43); VBG pO2 216 mmHg
[2024-09-14 05:06] LABS: Venous Blood Gas Refer to POC result
[2024-09-14] MEDS: SODIUM CHLORIDE 0.9% IV ×2 (05:21→13:46)
[2024-09-14] MEDS: ACYCLOVIR SODIUM IV ×2 (05:21→13:46)
[2024-09-14 05:24] LABS: Basophils Percent Auto 0.1 % (0-2); Hematocrit 37.8 % (42.0-52.0); Hemoglobin 12.4 g/dl (14.0-18.0); Imm Gran Abs Auto 0.05 X10*3/uL (0.00-0.03); Imm Gran Pct Auto 0.4 % (0.0-0.4); Lymphocytes Percent Auto 15.9 % (20-40); MANUAL DIFF FLAG NO; Mean Corpuscular HGB Conc 32.8 g/dl (31.0-36.0); Mean Corpuscular Hemoglobin 24.5 pg (27.0-33.0); Mean Corpuscular Volume 74.7 fL (80.0-98.0); Mean Platelet Volume 9.2 fL (9.4-12.4); Monocytes Absolute Auto 0.2 X10*3/uL (0.1-1.2); Monocytes Percent Auto 1.4 % (2-11); Neutrophils Absolute Auto 10.3 x10*3/uL (2.0-8.3); Neutrophils Percent Auto 82.2 % (45-73); Platelet Count 396 X10*3/uL (160-400); Red Blood Count 5.06 X10*6/uL (4.60-5.80); Red Cell Distribution Width 15.7 % (11.0-16.0); White Blood Count 12.5 X10*3/uL (4.8-10.8)
[2024-09-14] MEDS: Pantoprazole Sodium 40 MG/10 ML VIAL IVPUSH (05:24)
[2024-09-14 05:47] LABS: Alanine Aminotransferase 370 U/L (0-40); Albumin Level 3.5 g/dL (3.5-5.0); Alkaline Phosphatase 193 U/L (39-117); Anion Gap 14 (12-20); Aspartate Amino Transferase 121 U/L (5-37); Bilirubin Total 0.9 mg/dL (0.0-1.0); Blood Urea Nitrogen 10 mg/dL (9-16); Calcium 8.3 mg/dL (8.4-10.2); Carbon Dioxide 18 mmol/L (22-29); Chloride 111 mmol/L (96-108); Creatinine Clr Calc Pharmacy 131.1; Estimated Glomerular Filt Rate > 60; Glucose Random 147 mg/dL (60-115); Magnesium 1.7 mg/dL (1.6-2.6); Phosphorus 3.5 mg/dL (2.7-4.5); Potassium 4.4 mmol/L (3.3-5.1); Sodium 139 mmol/L (135-145); Total Protein 6.8 g/dL (6.5-8.0)
--- NOTE | 2024-09-14 05:52 | MHC.CLN ---
PT IS INTUBATED AND SEDATED REVIEWED LABS CURRENTLY NPO IF TF NEEDED; RECOMMEND PROMOTE TF AT MAX GOAL RATE 40ML/HR WITH 240ML FREE WATER FLUSHES Q 6 HRS TO PROVIDE 960KCALS (1607KCALS WITH SEDATION; 23KCALS/KG), 60G PROTEIN (.85G/KG), 1765ML TOTAL WATER FROM FORMULA AND FLUSHES (25ML/KG) MONITOR TOLERANCE AND LYTES FOLLOWING FOR DIET ADVANCEMENT SEE ALSO FULL CLINICAL NUTRITION ASSESSMENT
[2024-09-14] MEDS: Cisatracurium Besylate 20 MG/10 ML VIAL IVPUSH (06:35)
[2024-09-14] MEDS: 0.9 % Sodium Chloride Flush 3 ML SYRINGE IVFLUSH ×3 (07:36→23:09)
[2024-09-14] MEDS: Chlorhexidine Gluc Oral Rinse 15 ML MOUTHWASH BUCCAL ×3 (08:05→21:11)
--- NOTE | 2024-09-14 08:46 | P.PNCC_ITS ---
Subjective Subjective Date of Service: 09/14/24 Critical Care Time (minutes): 35 Comment: Remains on ventilator on multiple drips including Versed and propofol unstable ventilator settings. No further clinical seizures Physical Exam 2 Vital Signs: Vital Signs: Last Vital Signs Temp 96.8 F 09/14/24 08:00 Pulse 64 09/14/24 08:18 Resp 20 09/14/24 08:00 BP 122/67 09/14/24 08:18 Pulse Ox 100 09/14/24 08:00 O2 Del Method Mechanical Ventil ation 09/14/24 08:00 O2 Flow Rate 2 09/13/24 21:56 FiO2 25 09/14/24 08:00 BMI result Body Mass Index 25.0 General: Young male comfortably lying in the bed on the ventilator support Nutritional Appearance: well nourished and overweight Eyes: appearance normal, both eyes and all related structures; Alignment and Position: alignment normal and position normal Neck: No lymphadenopathy, no thyromegaly Resp: bilateral air entry equal, no added sounds present Cardio: Regular rate, regular rhythm; Heart sounds: S1 normal heart sound present and S2 normal heart sound present GI: soft, nontender, no guarding, no hepatosplenomegaly : bladder normal to inspection, bladder normal to palpation, no renal angle tenderness Skin: no rashes or lesions noted and elasticity normal Neuro: Sedated, no focal deficits Objective Data Labs 09/14/24 05:00 09/14/24 05:00 Labs: Laboratory Results - last 24 hr 09/14/24 09/14/24 04:53 05:00 WBC 12.5 H RBC 5.06 Hgb 12.4 L Hct 37.8 L MCV 74.7 L MCH 24.5 L MCHC 32.8 RDW 15.7 Plt Count 396 D MPV 9.2 L Immature Gran % (Auto) 0.4 Neut % (Auto) 82.2 H Lymph % (Auto) 15.9 L [place] % (Auto) 1.4 L Eos % (Auto) 0.0 Baso % (Auto) 0.1 Lymph # (Auto) 2.0 [place] # (Auto) 0.2 Eos # (Auto) 0.0 Baso # (Auto) 0.0 Abs Immat Gran (auto) 0.05 H Absolute Neuts (auto) 10.3 H Absolute Nucleated RBC 0.000 Nucleated RBC % (auto) 0.0 VBG pH 7.47 H VBG pCO2 26 VBG pO2 216 VBG HCO3 20 L VBG O2 Saturation 100.0 VBG Base Excess -2.0 Sodium 139 Potassium 4.4 Chloride 111 H Carbon Dioxide 18 L Anion Gap 14 BUN 10 Creatinine 0.77 Estim Creat Clear Calc 131.1 Estimated GFR > 60 Random Glucose 147 H Calcium 8.3 L Phosphorus 3.5 Magnesium 1.7 Total Bilirubin 0.9 AST 121 H ALT 370 H Alkaline Phosphatase 193 H Total Protein 6.8 Albumin 3.5 Progress Note: A&P Assessment and plan (1) Transaminitis: Status: Acute (2) Acute cholecystitis: Status: Acute (3) Choledocholithiasis: Status: Acute (4) HIV (human immunodeficiency virus infection): Status: Acute (5) Altered mental status: Status: Acute (6) Encephalopathy: Status: Acute Plan Neuro: Acute encephalopathy possibly due to a combination of toxic encephalopathy from amphetamines and possibly metabolic encephalopathy from acute cholecystitis leading to seizure disorder. Given underlying history of HIV infectious cause could not be completely ruled out. We will do a lumbar puncture today On Versed at propofol for seizure control as well as sedation, as needed fentanyl for analgesia Close neurological status monitoring in the ICU every hour Cardiac: shock: on levophed for vasopressor support, will titrate to keep MAP above 65mmhg Respiratory: Acute respiratory failure due to poor respiratory drive secondary to seizures Currently on ventilator support On PRVC mode FiO2 24%, PEEP 5, TV 380, RR 18 Peak pressures and plateau pressures are under the curve Ventilator management bundle with head end elevation, aspiration precaution, chlorhexidine mouthwash, daily awakening trials, daily spontaneous breathing trials GI: We will start on tube feeds Transaminitis: Secondary to choledocholithiasis and possible cholecystitis as liver ultrasound showed gallbladder sludge with gallbladder stones with mild wall thickening Liver function improving Renal: We will closely monitor I's and O's Avoid nephrotoxic medications Heme: Chronic anemia, closely monitor H&H, transfuse for hemoglobin less than 7 grams/deciliter Endocrine: Blood sugars under control Sliding scale insulin as needed Infectious disease: Pancultures negative so far On vanc, cefepime, Unasyn, acyclovir given his history of HIV and seizures Musculoskeletal: Decubitus ulcer prevention protocol Lines: Peripheral Prophylaxis: Lovenox, pantoprazole Total critical care time spent is about 40 minutes on ventilator management, managing patient's multiple drips to control seizures, vasopressor management, close hemodynamic monitoring, review of chart, review of labs and images at this time is excluding any procedural time Quality Stroke Does the patient have a stroke diagnosis?: No VTE Prior VTE?: No VTE Risk Level:: Medical - moderate - high VTE Device Contraindication: N/A - Device Ordered VTE Drug Contraindication: Treatment Not Indicated
--- NOTE | 2024-09-14 09:41 | MHC.CM.PN ---
Pt intubated in ICU for airway protection: unable to participate in CM assessment: Message left for pt's sister to contact [facility] for assistance. Pt is expected to extubate in 1-2 days and should be able to d/c to home w/outpt follow up. CM to follow for completion of d/c planning needs
--- NOTE | 2024-09-14 11:20 | P.CDIM_ITS ---
PROVIDER RESPONSE TEXT: To clarify, the appropriate diagnosis supported by the clinical indicators: Clinically unable to determine (explain): has a component of infection and drug abuse QUERY TEXT: PHYSICIAN'S DOCUMENTATION REQUEST Date of Query: 09/14/2024 09:23 AM EST Patient Name: Everardo Cramer Admit Date: 09/11/2024 Dear Roverto Johns MD, A review of the medical record indicates additional documentation may be needed. Please review below and update the documentation accordingly. Clinical Indicators: Per Critical Care Progress Note 09/14/24: Cardiac: shock: on Levophed for vasopressor support, will titrate to keep MAP above 65mmhg The following diagnoses or signs and symptoms were noted in the patient record: + amphetamine wbc 7.9 t 98.2 p 102 Seizure disorder, Acute cholecystitis Based on the above, could you clarify the type of shock that supports the above abnormalities and add itional evaluation, monitoring, and/or treatment rendered: Cardiogenic shock Anaphylactic shock Other (explain) Clinically unable to determine (explain) Thank you, Jennifer Coy RN Use of terms such as suspected, likely, concern for, or probable (associated with a specific diagnosi s that is being evaluated, monitored, or treated as if it exists) are acceptable and can be coded in the inpatient se tting, when documented at the time of discharge. Please use your independent medical judgment in providing your response. THIS QUERY IS PART OF THE PERMANENT MEDICAL RECORD
[2024-09-14] MEDS: Rocuronium Bromide 50 MG/5 ML VIAL 100 MG IVPUSH (12:15)
--- NOTE | 2024-09-14 12:33 | W.PM.CCHP ---
Procedures Date of Service Date of Service: 09/14/24 Lumbar Puncture Consent for Procedure: Elective - informed consent obtained Time out performed: Yes Patient position: right lateral decubitus Skin prep: Povidone-Iodine 1% Spinal needle gauge: 20G Interspace used: L4-L5 Opening pressure (cmH20): 25 Fluid initially obtained: clear Complications: none
[2024-09-14 13:37] LABS: CSF Appearance Clear, Colorless; CSF Tube # 1
[2024-09-14 13:59] LABS: Vancomycin Random 9.1 mcg/mL (15-20)
[2024-09-14 14:06] LABS: Glucose CSF 92 mg/dL
--- NOTE | 2024-09-14 14:10 | HE.PHANOTE ---
Re Vanc Trough a little low for potential [employer] infection at 9.1 mg/L. Will change to 1250mg q8h for a projected trough of 16.1 mg/L and AUC of 554 mg/L. Next level tomorrow after 2 doses of new regimen.
[2024-09-14] MEDS: vancomycin HCL 1,250 MG in 0.9 % Sodium Chloride 250 ML 166.67 MG IV ×2 (14:20→23:20)
[2024-09-14 14:21] LABS: Appearance CSF CLEAR
[2024-09-14 14:22] LABS: CSF Tube # 4; CSF Volume 3.5 ML; Color CSF COLORLESS; Red Blood Cell CSF 5 MM*3; White Blood Cell CSF 2 MM*3
[2024-09-14 14:23] LABS: Lymphocytes CSF 75 %; Neutrophils CSF 25 %
[2024-09-14 15:21] LABS: Cryptococcus neoformans/gattii Not Detected (Not Detect.); Enterovirus Not Detected (Not Detect.); Escherichia coli K1 Not Detected (Not Detect.); Haemophilus influenzae Not Detected (Not Detect.); Herpes simplex virus 1 Not Detected (Not Detect.); Herpes simplex virus 2 Not Detected (Not Detect.); Human herpesvirus 6 Not Detected (Not Detect.); Human parechovirus Not Detected (Not Detect.); Listeria monocytogenes Not Detected (Not Detect.); Neisseria meningitidis Not Detected (Not Detect.); Streptococcus agalactiae Not Detected (Not Detect.); Streptococcus pneumoniae Not Detected (Not Detect.); Varicella zoster virus Not Detected (Not Detect.)
[2024-09-14] MEDS: Norepinephrine Bitartrate/D5W 8 MG/250 ML PLAST..BAG 4.59 MG IVCONT (21:07)
[2024-09-15] VITALS (42 sets, daily range): BP systolic 97–148; BP diastolic 41–91; PULSE 44–83; RESP 15–20; TEMP 34.7–37.4; O2SAT 96–100; BMI 26.7
[2024-09-15] MEDS: fentaNYL citrate/NS 1,000 MCG/100 ML PLAST..BAG 10 MCG IVCONT ×2 (00:04→09:47)
[2024-09-15] MEDS: Midazolam HCl/NS 50 MG/50 ML PLAST..BAG IVCONT ×3 (00:53→21:03)
[2024-09-15] MEDS: levETIRAcetam in NaCl (iso-os) 1,000 MG/100 ML PIGGYBACK 400 MG IV ×2 (00:55→13:07)
[2024-09-15] MEDS: propofoL 1,000 MG/100 ML VIAL 24.49 MG IVCONT ×6 (01:25→23:07)
--- NOTE | 2024-09-15 02:40 | PC.NURSE ---
MOTHER AT BEDSIDE THIS EVENING..PER MOTHER INFORMATION ABOUT PATIENT STATUS OMLY TO BE GIVEN TO HERSELF, PATIENT'S FATHER IVONE AND/OR SISTERSTALEX
[2024-09-15] MEDS: cefEPime HCl/D5W 2 GM/50 ML PIGGYBACK IV ×3 (04:24→20:13)
[2024-09-15 04:39] LABS: VBG HCO3 24 mmol/L (22-26); VBG pCO2 28 mmHg; VBG pH 7.54 (7.32-7.43); VBG pO2 109 mmHg
[2024-09-15 04:49] LABS: Venous Blood Gas Refer to POC result
[2024-09-15 04:49] LABS: MANUAL DIFF FLAG NO
[2024-09-15 04:50] LABS: Basophils Percent Auto 0.1 % (0-2); Hematocrit 35.5 % (42.0-52.0); Hemoglobin 11.7 g/dl (14.0-18.0); Imm Gran Abs Auto 0.06 X10*3/uL (0.00-0.03); Imm Gran Pct Auto 0.4 % (0.0-0.4); Lymphocytes Absolute Auto 2.5 X10*3/uL (1.2-4.9); Lymphocytes Percent Auto 17.7 % (20-40); Mean Corpuscular Hemoglobin 24.6 pg (27.0-33.0); Mean Corpuscular Volume 74.7 fL (80.0-98.0); Mean Platelet Volume 8.8 fL (9.4-12.4); Monocytes Absolute Auto 1.1 X10*3/uL (0.1-1.2); Monocytes Percent Auto 7.8 % (2-11); Neutrophils Absolute Auto 10.4 x10*3/uL (2.0-8.3); Platelet Count 408 X10*3/uL (160-400); Red Blood Count 4.75 X10*6/uL (4.60-5.80); Red Cell Distribution Width 16.1 % (11.0-16.0); White Blood Count 14.1 X10*3/uL (4.8-10.8)
[2024-09-15 05:11] LABS: Alanine Aminotransferase 261 U/L (0-40); Albumin Level 3.3 g/dL (3.5-5.0); Alkaline Phosphatase 154 U/L (39-117); Anion Gap 11 (12-20); Aspartate Amino Transferase 57 U/L (5-37); Bilirubin Total 0.5 mg/dL (0.0-1.0); Blood Urea Nitrogen 12 mg/dL (9-16); Calcium 8.4 mg/dL (8.4-10.2); Carbon Dioxide 22 mmol/L (22-29); Chloride 113 mmol/L (96-108); Creatinine Clr Calc Pharmacy 138.3; Estimated Glomerular Filt Rate > 60; Glucose Random 162 mg/dL (60-115); Phosphorus 3.6 mg/dL (2.7-4.5); Potassium 4.1 mmol/L (3.3-5.1); Sodium 142 mmol/L (135-145); Total Protein 6.3 g/dL (6.5-8.0)
[2024-09-15] MEDS: Pantoprazole Sodium 40 MG/10 ML VIAL IVPUSH (06:09)
[2024-09-15] MEDS: vancomycin HCL 1,250 MG in 0.9 % Sodium Chloride 250 ML 166.67 MG IV ×3 (06:11→23:16)
[2024-09-15] MEDS: Albumin Human 25 % 100 ML IV ×2 (07:00→08:01)
[2024-09-15] MEDS: 0.9 % Sodium Chloride Flush 3 ML SYRINGE IVFLUSH ×2 (07:00→14:50)
[2024-09-15] MEDS: Chlorhexidine Gluc Oral Rinse 15 ML MOUTHWASH BUCCAL ×3 (07:00→20:14)
--- NOTE | 2024-09-15 08:31 | P.PNCC_ITS ---
Subjective Subjective Date of Service: 09/15/24 Critical Care Time (minutes): 35 Comment: Continues on ventilator support, no active seizures Lumbar puncture benign Physical Exam 2 Vital Signs: Vital Signs: Last Vital Signs Temp 98.8 F 09/15/24 08:00 Pulse 60 09/15/24 08:00 Resp 20 09/15/24 08:00 BP 112/57 L 09/15/24 08:00 Pulse Ox 96 09/15/24 08:00 O2 Del Method Mechanical Ventil ation 09/15/24 08:00 O2 Flow Rate 2 09/13/24 21:56 FiO2 25 09/15/24 08:00 BMI result Body Mass Index 26.7 Objective Data Labs 09/15/24 04:16 09/15/24 04:16 Labs: Laboratory Results - last 24 hr 09/14/24 09/14/24 09/14/24 12:49 12:49 13:31 WBC RBC Hgb Hct MCV MCH MCHC RDW Plt Count MPV Immature Gran % (Auto) Neut % (Auto) Lymph % (Auto) [place] % (Auto) Eos % (Auto) Baso % (Auto) Lymph # (Auto) [place] # (Auto) Eos # (Auto) Baso # (Auto) Abs Immat Gran (auto) Absolute Neuts (auto) Absolute Nucleated RBC Nucleated RBC % (auto) VBG pH VBG pCO2 VBG pO2 VBG HCO3 VBG O2 Saturation VBG Base Excess Sodium Potassium Chloride Carbon Dioxide Anion Gap BUN Creatinine Estim Creat Clear Calc Estimated GFR Random Glucose Calcium Phosphorus Total Bilirubin AST ALT Alkaline Phosphatase Total Protein Albumin CSF Tube Number 1 4 CSF Volume 3.5 CSF Appearance CLEAR CSF Color COLORLESS CSF WBC 2 CSF RBC 5 CSF Neutrophils 25 CSF Lymphocytes 75 CSF Appearance (b) Clear, Colorless CSF Glucose 92 CSF Total Protein 35.0 CSF C.neoform/gat PCR Not Detected CSF CMV DNA (PCR) Not Detected CSF Enterovirus (PCR) Not Detected CSF E. coli K1 (PCR) Not Detected CSF H. influenzae (PCR) Not Detected CSF HSV I (PCR) Not Detected CSF HSV II (PCR) Not Detected CSF HHV 6 (PCR) Not Detected CSF L.monocytogenes PCR Not Detected CSF N. meningitidis PCR Not Detected CSF Parechovirus (PCR) Not Detected CSF S. agalactiae (PCR) Not Detected CSF S. pneumoniae (PCR) Not Detected CSF VZV (PCR) Not Detected Random Vancomycin 9.1 L 09/15/24 09/15/24 04:16 04:27 WBC 14.1 H RBC 4.75 Hgb 11.7 L Hct 35.5 L MCV 74.7 L MCH 24.6 L MCHC 33.0 RDW 16.1 H Plt Count 408 H MPV 8.8 L Immature Gran % (Auto) 0.4 Neut % (Auto) 74.0 H Lymph % (Auto) 17.7 L [place] % (Auto) 7.8 Eos % (Auto) 0.0 Baso % (Auto) 0.1 Lymph # (Auto) 2.5 [place] # (Auto) 1.1 Eos # (Auto) 0.0 Baso # (Auto) 0.0 Abs Immat Gran (auto) 0.06 H Absolute Neuts (auto) 10.4 H Absolute Nucleated RBC 0.000 Nucleated RBC % (auto) 0.0 VBG pH 7.54 H VBG pCO2 28 VBG pO2 109 VBG HCO3 24 VBG O2 Saturation 100.0 VBG Base Excess 3.0 Sodium 142 Potassium 4.1 Chloride 113 H Carbon Dioxide 22 Anion Gap 11 L BUN 12 Creatinine 0.73 Estim Creat Clear Calc 138.3 Estimated GFR > 60 Random Glucose 162 H Calcium 8.4 Phosphorus 3.6 Total Bilirubin 0.5 AST 57 H ALT 261 H Alkaline Phosphatase 154 H Total Protein 6.3 L Albumin 3.3 L CSF Tube Number CSF Volume CSF Appearance CSF Color CSF WBC CSF RBC CSF Neutrophils CSF Lymphocytes CSF Appearance (b) CSF Glucose CSF Total Protein CSF C.neoform/gat PCR CSF CMV DNA (PCR) CSF Enterovirus (PCR) CSF E. coli K1 (PCR) CSF H. influenzae (PCR) CSF HSV I (PCR) CSF HSV II (PCR) CSF HHV 6 (PCR) CSF L.monocytogenes PCR CSF N. meningitidis PCR CSF Parechovirus (PCR) CSF S. agalactiae (PCR) CSF S. pneumoniae (PCR) CSF VZV (PCR) Random Vancomycin Microbiology Microbiology Results: Microbiology 09/14/24 12:49 Cerebrospinal Fluid Gram Stain - Final 09/14/24 12:49 Cerebrospinal Fluid CSF Examination - Final 09/14/24 12:49 Cerebrospinal Fluid Fluid Description - Final 09/14/24 12:49 Cerebrospinal Fluid CSF Culture - Preliminary No growth to date. Progress Note: A&P Assessment and plan (1) Transaminitis: Status: Acute (2) Acute cholecystitis: Status: Acute (3) HIV (human immunodeficiency virus infection): Status: Acute (4) Altered mental status: Status: Acute (5) Encephalopathy: Status: Acute (6) Generalized convulsive seizures: Status: Acute Plan Neuro: Acute encephalopathy possibly due to a combination of toxic encephalopathy from amphetamines and possibly metabolic encephalopathy from acute cholecystitis leading to seizure disorder. Lumbar puncture showing normal glucose, normal protein and low cell count making meningitis unlikely. CSF meningitis panel negative. Antibiotics for bridge at his has been discontinued, okay to take off the precautions. On Versed at propofol for seizure control as well as sedation, as needed fentanyl for analgesia. We will taper off Versed as tolerated today white closely monitoring for seizures at later we will take off propofol. Close neurological status monitoring in the ICU every hour Cardiac: shock: on levophed for vasopressor support, will titrate to keep MAP above 65mmhg Respiratory: Acute respiratory failure due to poor respiratory drive secondary to seizures Currently on ventilator support On PRVC mode FiO2 25%, PEEP 5, TV 380, RR 16 Peak pressures and plateau pressures are under the curve Ventilator management bundle with head end elevation, aspiration precaution, chlorhexidine mouthwash, daily awakening trials, daily spontaneous breathing trials Once the sedation is weaned off if there is not significant dyssynchrony we will try the patient on pressure support trials GI: We will start on tube feeds Transaminitis: Secondary to choledocholithiasis and possible cholecystitis as liver ultrasound showed gallbladder sludge with gallbladder stones with mild wall thickening GI deferred doing a ERCP for now Liver function improving Renal: We will closely monitor I's and O's Avoid nephrotoxic medications Heme: Chronic anemia, closely monitor H&H, transfuse for hemoglobin less than 7 grams/deciliter Endocrine: Blood sugars under control Sliding scale insulin as needed Infectious disease: Pancultures negative so far On vanc, cefepime; Unasyn and acyclovir discontinued HIV and CD4 count pending Musculoskeletal: Decubitus ulcer prevention protocol Lines: Peripheral Prophylaxis: Lovenox, pantoprazole Critical care time spent is about 40 minutes on titrating multiple sedated drips at multiple drips for seizures, ventilator management, close hemodynamic monitoring, vasopressor management, review of labs and images and this time is excluding any procedural time Quality Stroke Does the patient have a stroke diagnosis?: No VTE Prior VTE?: No VTE Risk Level:: Medical - moderate - high VTE Device Contraindication: N/A - Device Ordered VTE Drug Contraindication: Treatment Not Indicated
--- NOTE | 2024-09-15 10:02 | ECG_ITS ---
Test Reason : bradycardia Blood Pressure : / mmHG Vent. Rate : 048 BPM Atrial Rate : 048 BPM P-R Int : 112 ms QRS Dur : 086 ms QT Int : 434 ms P-R-T Axes : -19 067 062 degrees QTc Int : 387 ms Sinus bradycardia Otherwise normal ECG When compared with ECG of 13-SEP-2024 00:46, Vent. rate has decreased BY 48 BPM QT has shortened Referred By: Roverto Johns Electronically Signed By:EDIS PETTY MD
--- NOTE | 2024-09-15 10:04 | MHC.CLN ---
F/U PT REMAINS INTUBATED AND SEDATED REVIEWED LABS DISCUSSED AT ROUNDS WITH JOANIE REPORTS TOLERATING TF WITH LOW RESIDUALS RECEIVING PROMOTE TF AT MAX GOAL RATE 40ML/HR WITH 240ML FREE WATER FLUSHES Q 6 HRS PROVIDES 960KCALS (1607KCALS WITH SEDATION; 23KCALS/KG), 60G PROTEIN (.85G/KG), 1765ML TOTAL WATER FROM FORMULA AND FLUSHES (25ML/KG) MONITOR TOLERANCE AND LYTES
[2024-09-15] MEDS: Midazolam HCl/PF 2 MG/2 ML VIAL 4 MG IVPUSH (11:44)
--- NOTE | 2024-09-15 12:21 | MHC.CM.PN ---
Pt remains intubated in ICU: met with pt's mother (who resides in [place]) and his sister. They state pt resides alone in [place], has no services or DME and do not know who his PCP is. They state pt has major addiction issues and are fearful for his safety. He has been to INPT rehab in the past but signs himself out after a few days. Pt's sister is interested in filing a Section 35. Pt's goals of care are for an MRI and attempt at extubation. Pt will be seen by the CARE team once he is medically stable. Family can transport pt to home. CM to follow for assistance in d/c planning.
[2024-09-15] MEDS: gadobutroL 7.5 ML VIAL IVPUSH (12:30)
[2024-09-15 13:38] LABS: Vancomycin Random 14.6 mcg/mL (15-20)
[2024-09-15 15:58] LABS: HIV RNA PCR Qn Copies 15400 copies/mL (NOT DETECTED); HIV RNA PCR Qn Log Copies 4.19 (NOT DETECTED)
[2024-09-15] MEDS: fentaNYL citrate/NS 1,000 MCG/100 ML PLAST..BAG 20 MCG IVCONT ×2 (15:59→21:03)
[2024-09-15 17:08] LABS: Absolute CD3 Count 1344 cells/uL (840-3060); Absolute CD4 Count 273 cells/uL (490-1740); Absolute CD8 Count 1069 cells/uL (180-1170); Absolute Lymphocytes 1760 cells/uL (850-3900); CD4 CD8 Ratio 0.26 (0.86-5.00); Percent CD3 Cells 76 % (57-85); Percent CD4 Cells 15 % (30-61); Percent CD8 Cells 61 % (12-42)
[2024-09-16] VITALS (37 sets, daily range): BP systolic 94–119; BP diastolic 46–72; PULSE 57–90; RESP 16–20; TEMP 34.9–37.4; O2SAT 94–100; BMI 27.0
[2024-09-16] MEDS: levETIRAcetam in NaCl (iso-os) 1,000 MG/100 ML PIGGYBACK 400 MG IV ×2 (00:29→13:31)
[2024-09-16] MEDS: 0.9 % Sodium Chloride Flush 3 ML SYRINGE IVFLUSH ×4 (00:30→23:41)
[2024-09-16] MEDS: fentaNYL citrate/NS 1,000 MCG/100 ML PLAST..BAG 20 MCG IVCONT ×5 (01:30→20:33)
[2024-09-16] MEDS: propofoL 1,000 MG/100 ML VIAL 19.6 MG IVCONT ×3 (02:15→12:48)
[2024-09-16 04:37] LABS: VBG Base Excess 1.5 mmol/L; VBG HCO3 24 mmol/L (22-26); VBG pCO2 33 mmHg; VBG pH 7.47 (7.32-7.43); VBG pO2 69 mmHg
[2024-09-16 04:53] LABS: Venous Blood Gas Refer to POC result
[2024-09-16 05:25] LABS: MANUAL DIFF FLAG NO
[2024-09-16 05:27] LABS: Basophils Percent Auto 0.2 % (0-2); Eosinophils Absolute Auto 0.1 X10*3/uL (0.0-0.4); Eosinophils Percent Auto 0.6 % (0-4); Hematocrit 34.1 % (42.0-52.0); Hemoglobin 10.8 g/dl (14.0-18.0); Imm Gran Abs Auto 0.04 X10*3/uL (0.00-0.03); Imm Gran Pct Auto 0.5 % (0.0-0.4); Lymphocytes Absolute Auto 1.9 X10*3/uL (1.2-4.9); Lymphocytes Percent Auto 22.5 % (20-40); Mean Corpuscular HGB Conc 31.7 g/dl (31.0-36.0); Mean Corpuscular Hemoglobin 24.6 pg (27.0-33.0); Mean Corpuscular Volume 77.7 fL (80.0-98.0); Mean Platelet Volume 9.3 fL (9.4-12.4); Monocytes Absolute Auto 0.9 X10*3/uL (0.1-1.2); Monocytes Percent Auto 10.7 % (2-11); Neutrophils Absolute Auto 5.6 x10*3/uL (2.0-8.3); Neutrophils Percent Auto 65.5 % (45-73); Platelet Count 268 X10*3/uL (160-400); Red Blood Count 4.39 X10*6/uL (4.60-5.80); Red Cell Distribution Width 16.7 % (11.0-16.0); White Blood Count 8.6 X10*3/uL (4.8-10.8)
[2024-09-16] MEDS: cefEPime HCl/D5W 2 GM/50 ML PIGGYBACK IV ×3 (05:27→22:11)
[2024-09-16 05:50] LABS: Alanine Aminotransferase 165 U/L (0-40); Albumin Level 3.5 g/dL (3.5-5.0); Alkaline Phosphatase 110 U/L (39-117); Anion Gap 11 (12-20); Aspartate Amino Transferase 36 U/L (5-37); Bilirubin Total 0.3 mg/dL (0.0-1.0); Blood Urea Nitrogen 11 mg/dL (9-16); Calcium 8.3 mg/dL (8.4-10.2); Carbon Dioxide 22 mmol/L (22-29); Chloride 112 mmol/L (96-108); Creatinine Clr Calc Pharmacy 160.3; Estimated Glomerular Filt Rate > 60; Glucose Random 98 mg/dL (60-115); Magnesium 1.9 mg/dL (1.6-2.6); Phosphorus 3.9 mg/dL (2.7-4.5); Sodium 141 mmol/L (135-145); Total Protein 6.1 g/dL (6.5-8.0)
[2024-09-16] MEDS: Midazolam HCl/NS 50 MG/50 ML PLAST..BAG IVCONT (05:54)
[2024-09-16] MEDS: Pantoprazole Sodium 40 MG/10 ML VIAL IVPUSH (05:56)
[2024-09-16] MEDS: vancomycin HCL 1,250 MG in 0.9 % Sodium Chloride 250 ML 166.67 MG IV (07:53)
[2024-09-16] MEDS: Chlorhexidine Gluc Oral Rinse 15 ML MOUTHWASH BUCCAL ×3 (07:53→20:40)
--- NOTE | 2024-09-16 11:11 | MHC.CLN ---
F/U PT REMAINS INTUBATED AND SEDATED REVIEWED LABS TOLERATING CURRENT TF AT 40 ML PER HOUR. CONTINUE PROMOTE TF AT MAX GOAL RATE 40ML/HR WITH 240ML FREE WATER FLUSHES Q 6 HRS PROVIDES 960KCALS (1477KCALS WITH SEDATION; 20.8KCALS/KG CMW), 60G PROTEIN (.85G/KG), 1765ML TOTAL WATER FROM FORMULA AND FLUSHES (25ML/KG) MONITOR TOLERANCE AND LYTES
--- NOTE | 2024-09-16 11:20 | PM.CCPN ---
Subjective Subjective Date of Service: 09/16/24 Critical Care Time (minutes): 35 Comment: Continues to be on ventilator support this morning On propofol and Versed 4 sedation and seizure control MRI of the brain normal, a lumbar puncture murmur Physical Exam Vital Signs: Vital Signs: Last Vital Signs Temp 99.1 F 09/16/24 10:00 Pulse 67 09/16/24 10:00 Resp 16 09/16/24 10:00 BP 101/58 L 09/16/24 10:00 Pulse Ox 100 09/16/24 10:00 O2 Del Method Mechanical Ventil ation 09/16/24 10:00 O2 Flow Rate 2 09/13/24 21:56 FiO2 21 09/16/24 10:00 BMI result Body Mass Index 27.0 General: Middle-aged male lying in the bed on ventilator support Nutritional Appearance: well nourished and normal weight Eyes: appearance normal, both eyes and all related structures; Alignment and Position: alignment normal and position normal Neck: No lymphadenopathy, no thyromegaly Resp: bilateral air entry equal, occasional added sounds present Cardio: Regular rate, regular rhythm; Heart sounds: S1 normal heart sound present and S2 normal heart sound present GI: soft, nontender, no guarding, no hepatosplenomegaly : bladder normal to inspection, bladder normal to palpation, no renal angle tenderness Skin: no rashes or lesions noted and elasticity normal Neuro: Sedated, no focal deficits Objective Data Labs 09/16/24 04:30 09/16/24 04:30 Labs: Laboratory Results - last 24 hr 09/13/24 09/15/24 09/16/24 13:21 13:13 04:26 WBC RBC Hgb Hct MCV MCH MCHC RDW Plt Count MPV Immature Gran % (Auto) Neut % (Auto) Lymph % (Auto) [place] % (Auto) Eos % (Auto) Baso % (Auto) Lymph # (Auto) [place] # (Auto) Eos # (Auto) Baso # (Auto) Abs Immat Gran (auto) Absolute Neuts (auto) Absolute Nucleated RBC Nucleated RBC % (auto) VBG pH 7.47 H VBG pCO2 33 VBG pO2 69 VBG HCO3 24 VBG O2 Saturation 95.0 VBG Base Excess 1.5 Sodium Potassium Chloride Carbon Dioxide Anion Gap BUN Creatinine Estim Creat Clear Calc Estimated GFR Random Glucose Calcium Phosphorus Magnesium Total Bilirubin AST ALT Alkaline Phosphatase Total Protein Albumin Random Vancomycin 14.6 L Total Lymphocytes 1760 % CD3 Cells 76 Absolute CD3 Count 1344 % CD4 Cells 15 L Absolute CD4 Count 273 L CD4/CD8 Ratio 0.26 L % CD8 Cells 61 H Absolute CD8 Count 1069 HIV-1 RNA copies/mL 78787 H HIV-1 RNA logcopies/mL 4.19 H Cryptococcal Ag SEE NOTE 09/16/24 04:30 WBC 8.6 RBC 4.39 L Hgb 10.8 L Hct 34.1 L MCV 77.7 L MCH 24.6 L MCHC 31.7 RDW 16.7 H Plt Count 268 D MPV 9.3 L Immature Gran % (Auto) 0.5 H Neut % (Auto) 65.5 Lymph % (Auto) 22.5 [place] % (Auto) 10.7 Eos % (Auto) 0.6 Baso % (Auto) 0.2 Lymph # (Auto) 1.9 [place] # (Auto) 0.9 Eos # (Auto) 0.1 Baso # (Auto) 0.0 Abs Immat Gran (auto) 0.04 H Absolute Neuts (auto) 5.6 Absolute Nucleated RBC 0.000 Nucleated RBC % (auto) 0.0 VBG pH VBG pCO2 VBG pO2 VBG HCO3 VBG O2 Saturation VBG Base Excess Sodium 141 Potassium 4.0 Chloride 112 H Carbon Dioxide 22 Anion Gap 11 L BUN 11 Creatinine 0.63 Estim Creat Clear Calc 160.3 Estimated GFR > 60 Random Glucose 98 Calcium 8.3 L Phosphorus 3.9 Magnesium 1.9 Total Bilirubin 0.3 AST 36 ALT 165 H Alkaline Phosphatase 110 Total Protein 6.1 L Albumin 3.5 Random Vancomycin Total Lymphocytes % CD3 Cells Absolute CD3 Count % CD4 Cells Absolute CD4 Count CD4/CD8 Ratio % CD8 Cells Absolute CD8 Count HIV-1 RNA copies/mL HIV-1 RNA logcopies/mL Cryptococcal Ag Microbiology Microbiology Results: Microbiology 09/14/24 12:49 Cerebrospinal Fluid Gram Stain - Final 09/14/24 12:49 Cerebrospinal Fluid CSF Examination - Final 09/14/24 12:49 Cerebrospinal Fluid Fluid Description - Final 09/14/24 12:49 Cerebrospinal Fluid CSF Culture - Preliminary No growth after 2 days Progress Note: A&P Assessment and plan (1) Transaminitis: Status: Acute (2) Acute cholecystitis: Status: Acute (3) Choledocholithiasis: Status: Acute (4) HIV (human immunodeficiency virus infection): Status: Acute (5) Altered mental status: Status: Acute (6) Encephalopathy: Status: Acute (7) Generalized convulsive seizures: Status: Acute Plan Neuro: Acute encephalopathy possibly due to a combination of toxic encephalopathy from amphetamines and possibly metabolic encephalopathy from acute cholecystitis leading to seizure disorder. Lumbar puncture showing normal glucose, normal protein and low cell count making meningitis unlikely. CSF meningitis panel negative. Antibiotics for bridge at his has been discontinued. MRI of the brain did not show any acute intracranial changes On Versed at propofol for seizure control as well as sedation, as needed fentanyl for analgesia We will add Klonopin, oxycodone and valproic acid to taper off the sedative drips Close neurological status monitoring in the ICU every hour Cardiac: shock: on levophed for vasopressor support, will titrate to keep MAP above 65mmhg Respiratory: Acute respiratory failure due to poor respiratory drive secondary to seizures Currently on ventilator support On PRVC mode FiO2 25%, PEEP 5, TV 380, RR 16 Peak pressures and plateau pressures are under the curve Ventilator management bundle with head end elevation, aspiration precaution, chlorhexidine mouthwash, daily awakening trials, daily spontaneous breathing trials Not a candidate for extubation yet due to very poor mental status GI: We will start on tube feeds Transaminitis: Secondary to choledocholithiasis and possible cholecystitis as liver ultrasound showed gallbladder sludge with gallbladder stones with mild wall thickening GI deferred doing a ERCP for now Liver function improving Renal: We will closely monitor I's and O's Avoid nephrotoxic medications Heme: Chronic anemia, closely monitor H&H, transfuse for hemoglobin less than 7 grams/deciliter Endocrine: Blood sugars under control Sliding scale insulin as needed Infectious disease: Pancultures negative so far On vanc, cefepime; Unasyn and acyclovir discontinued HIV positive, viral culture 60,000 and CD4 count around 280 CSF ANTOINETTE virus, toxo still pending Musculoskeletal: Decubitus ulcer prevention protocol Lines: Peripheral Prophylaxis: Lovenox, pantoprazole Quality Stroke Does the patient have a stroke diagnosis?: No VTE Prior VTE?: No VTE Risk Level:: Medical - moderate - high VTE Device Contraindication: N/A - Device Ordered VTE Drug Contraindication: Treatment Not Indicated
[2024-09-16] MEDS: Valproic Acid Liquid 250 MG/5 ML SOLUTION 500 MG PO ×3 (13:18→22:07)
[2024-09-16] MEDS: clonazePAM 1 MG TABLET PO ×3 (13:19→20:41)
[2024-09-16] MEDS: oxyCODONE HCl Immed Release 5 MG TABLET 10 MG PO ×2 (13:19→20:40)
--- NOTE | 2024-09-16 13:29 | HE.PHANOTE ---
RE: vanco Trough on 09/16 came back at 20 mg/L. Changed dose to 1500mg Q12H with predicted trough of 10mg/L, AUC of 429mg/L. Predictions are seemingly lower than actual results, pushed back dose timing and getting a random after two doses 09/17 @1800
[2024-09-16] MEDS: propofoL 1,000 MG/100 ML VIAL 24.49 MG IVCONT ×3 (16:29→23:41)
[2024-09-16] MEDS: Ketamine HCl 500 MG in 0.9 % Sodium Chloride 250 ML 15.3 MG IVCONT (17:21)
[2024-09-16] MEDS: vancomycin HCL 1,500 MG in 0.9 % Sodium Chloride 500 ML 333.33 MG IV (20:36)
[2024-09-17] VITALS (30 sets, daily range): BP systolic 95–141; BP diastolic 41–90; PULSE 59–105; RESP 10–22; TEMP 34.2–38; O2SAT 65–100; BMI 28.9
[2024-09-17] MEDS: levETIRAcetam in NaCl (iso-os) 1,000 MG/100 ML PIGGYBACK 400 MG IV ×2 (00:43→13:57)
[2024-09-17] MEDS: fentaNYL citrate/NS 1,000 MCG/100 ML PLAST..BAG 17.5 MCG IVCONT ×2 (00:45→06:10)
[2024-09-17] MEDS: propofoL 1,000 MG/100 ML VIAL 24.49 MG IVCONT ×2 (03:35→08:19)
[2024-09-17] MEDS: oxyCODONE HCl Immed Release 5 MG TABLET 10 MG PO ×2 (03:36→11:23)
[2024-09-17] MEDS: cefEPime HCl/D5W 2 GM/50 ML PIGGYBACK IV ×3 (04:24→20:21)
[2024-09-17 04:48] LABS: VBG Base Excess 2.4 mmol/L; VBG HCO3 26 mmol/L (22-26); VBG pCO2 36 mmHg; VBG pH 7.46 (7.32-7.43); VBG pO2 48 mmHg
[2024-09-17 04:49] LABS: Venous Blood Gas Refer to POC result
[2024-09-17 05:36] LABS: MANUAL DIFF FLAG NO
[2024-09-17 05:37] LABS: Basophils Percent Auto 0.2 % (0-2); Eosinophils Absolute Auto 0.2 X10*3/uL (0.0-0.4); Eosinophils Percent Auto 1.8 % (0-4); Hemoglobin 11.7 g/dl (14.0-18.0); Imm Gran Abs Auto 0.03 X10*3/uL (0.00-0.03); Imm Gran Pct Auto 0.4 % (0.0-0.4); Lymphocytes Absolute Auto 2.6 X10*3/uL (1.2-4.9); Lymphocytes Percent Auto 30.2 % (20-40); Mean Corpuscular HGB Conc 31.6 g/dl (31.0-36.0); Mean Corpuscular Hemoglobin 24.5 pg (27.0-33.0); Mean Corpuscular Volume 77.6 fL (80.0-98.0); Mean Platelet Volume 9.3 fL (9.4-12.4); Monocytes Percent Auto 11.4 % (2-11); Neutrophils Absolute Auto 4.8 x10*3/uL (2.0-8.3); Platelet Count 248 X10*3/uL (160-400); Red Blood Count 4.77 X10*6/uL (4.60-5.80); Red Cell Distribution Width 16.8 % (11.0-16.0); White Blood Count 8.5 X10*3/uL (4.8-10.8)
[2024-09-17 05:58] LABS: Alanine Aminotransferase 119 U/L (0-40); Albumin Level 3.3 g/dL (3.5-5.0); Anion Gap 14 (12-20); Aspartate Amino Transferase 28 U/L (5-37); Bilirubin Total 0.3 mg/dL (0.0-1.0); Blood Urea Nitrogen 10 mg/dL (9-16); Calcium 8.4 mg/dL (8.4-10.2); Carbon Dioxide 22 mmol/L (22-29); Chloride 111 mmol/L (96-108); Creatinine Clr Calc Pharmacy 140.3; Estimated Glomerular Filt Rate > 60; Glucose Random 89 mg/dL (60-115); Phosphorus 4.6 mg/dL (2.7-4.5); Potassium 4.5 mmol/L (3.3-5.1); Sodium 142 mmol/L (135-145); Total Protein 6.1 g/dL (6.5-8.0)
[2024-09-17] MEDS: Pantoprazole Sodium 40 MG/10 ML VIAL IVPUSH (06:10)
[2024-09-17 06:12] LABS: Alkaline Phosphatase 102 U/L (39-117)
[2024-09-17] MEDS: Valproic Acid Liquid 250 MG/5 ML SOLUTION 500 MG PO (07:36)
[2024-09-17] MEDS: Chlorhexidine Gluc Oral Rinse 15 ML MOUTHWASH BUCCAL (07:36)
[2024-09-17] MEDS: 0.9 % Sodium Chloride Flush 3 ML SYRINGE IVFLUSH ×3 (07:36→23:28)
[2024-09-17] MEDS: clonazePAM 1 MG TABLET PO (07:36)
[2024-09-17] MEDS: vancomycin HCL 1,500 MG in 0.9 % Sodium Chloride 500 ML 333.33 MG IV (07:36)
--- NOTE | 2024-09-17 08:38 | P.PNCC_ITS ---
Subjective Subjective Date of Service: 09/17/24 Critical Care Time (minutes): 35 Comment: Continues to be on ventilator support, no new events Versed drip has been switched to ketamine drip Currently on ketamine, propofol and fentanyl drips Physical Exam 2 Vital Signs: Vital Signs: Last Vital Signs Temp 99.1 F 09/17/24 08:00 Pulse 73 09/17/24 08:00 Resp 18 09/17/24 08:00 BP 133/71 09/17/24 08:00 Pulse Ox 99 09/17/24 08:00 O2 Del Method Mechanical Ventil ation 09/17/24 08:00 O2 Flow Rate 2 09/13/24 21:56 FiO2 21 09/17/24 08:00 BMI result Body Mass Index 28.9 General: Young male lying in the bed connected to the ventilator Nutritional Appearance: well nourished and normal weight Eyes: appearance normal, both eyes and all related structures; Alignment and Position: alignment normal and position normal Neck: No lymphadenopathy, no thyromegaly Resp: bilateral air entry equal, occasional added sounds present Cardio: Regular rate, regular rhythm; Heart sounds: S1 normal heart sound present and S2 normal heart sound present GI: soft, nontender, no guarding, no hepatosplenomegaly : bladder normal to inspection, bladder normal to palpation, no renal angle tenderness Skin: no rashes or lesions noted and elasticity normal Neuro: Sedated, no focal deficits Objective Data Labs 09/17/24 04:41 09/17/24 04:41 Labs: Laboratory Results - last 24 hr 09/16/24 09/17/24 09/17/24 13:01 04:35 04:41 WBC 8.5 RBC 4.77 Hgb 11.7 L Hct 37.0 L MCV 77.6 L MCH 24.5 L MCHC 31.6 RDW 16.8 H Plt Count 248 MPV 9.3 L Immature Gran % (Auto) 0.4 Neut % (Auto) 56.0 Lymph % (Auto) 30.2 [place] % (Auto) 11.4 H Eos % (Auto) 1.8 Baso % (Auto) 0.2 Lymph # (Auto) 2.6 [place] # (Auto) 1.0 Eos # (Auto) 0.2 Baso # (Auto) 0.0 Abs Immat Gran (auto) 0.03 Absolute Neuts (auto) 4.8 Absolute Nucleated RBC 0.000 Nucleated RBC % (auto) 0.0 VBG pH 7.46 H VBG pCO2 36 VBG pO2 48 VBG HCO3 26 VBG O2 Saturation 83.0 VBG Base Excess 2.4 Sodium 142 Potassium 4.5 Chloride 111 H Carbon Dioxide 22 Anion Gap 14 BUN 10 Creatinine 0.72 Estim Creat Clear Calc 140.3 Estimated GFR > 60 Random Glucose 89 Calcium 8.4 Phosphorus 4.6 H Magnesium 2.0 Total Bilirubin 0.3 AST 28 ALT 119 H Alkaline Phosphatase 102 Total Protein 6.1 L Albumin 3.3 L Random Vancomycin 20.0 Microbiology Microbiology Results: Microbiology 09/14/24 12:49 Cerebrospinal Fluid Gram Stain - Final 09/14/24 12:49 Cerebrospinal Fluid CSF Examination - Final 09/14/24 12:49 Cerebrospinal Fluid Fluid Description - Final 09/14/24 12:49 Cerebrospinal Fluid CSF Culture - Preliminary No growth after 2 days Progress Note: A&P Assessment and plan (1) Transaminitis: Status: Acute (2) Acute cholecystitis: Status: Acute (3) Choledocholithiasis: Status: Acute (4) Abdominal pain: Status: Acute (5) HIV (human immunodeficiency virus infection): Status: Acute (6) Altered mental status: Status: Acute (7) Encephalopathy: Status: Acute Plan Neuro: Acute encephalopathy possibly due to a combination of toxic encephalopathy from amphetamines and possibly metabolic encephalopathy from acute cholecystitis leading to seizure disorder. Lumbar puncture showing normal glucose, normal protein and low cell count making meningitis unlikely. CSF meningitis panel negative. Antibiotics for bridge at his has been discontinued. MRI of the brain did not show any acute intracranial changes On Ketamine and propofol for seizure control as well as sedation, fentanyl for analgesia. Propofol turned off this morning, fentanyl drip has been discontinued we will switch to as needed p.r.n. Continue Klonopin, oxycodone and valproic acid to taper off the sedative drips Close neurological status monitoring in the ICU every hour Cardiac: shock: on levophed for vasopressor support, will titrate to keep MAP above 65mmhg Respiratory: Acute respiratory failure due to poor respiratory drive secondary to seizures Currently on ventilator support On PRVC mode FiO2 25%, PEEP 5, TV 380, RR 16 Peak pressures and plateau pressures are under the curve Ventilator management bundle with head end elevation, aspiration precaution, chlorhexidine mouthwash, daily awakening trials, daily spontaneous breathing trials Sedation wean to assist with weaning trials on the ventilator. We will place the patient on pressor support we will see how we does GI: on tube feeds Transaminitis: Secondary to choledocholithiasis and possible cholecystitis as liver ultrasound showed gallbladder sludge with gallbladder stones with mild wall thickening GI deferred doing a ERCP for now Liver function improving Renal: We will closely monitor I's and O's Avoid nephrotoxic medications Heme: Chronic anemia, closely monitor H&H, transfuse for hemoglobin less than 7 grams/deciliter Endocrine: Blood sugars under control Sliding scale insulin as needed Infectious disease: Pancultures negative so far On vanc, cefepime; Unasyn and acyclovir discontinued HIV positive, viral culture 60,000 and CD4 count around 280 CSF ANTOINETTE virus, toxo still pending Musculoskeletal: Decubitus ulcer prevention protocol Lines: Peripheral Prophylaxis: Lovenox, pantoprazole Quality Stroke Does the patient have a stroke diagnosis?: No VTE Prior VTE?: No VTE Risk Level:: Medical - moderate - high VTE Device Contraindication: N/A - Device Ordered VTE Drug Contraindication: Treatment Not Indicated
[2024-09-17] MEDS: Ketamine HCl 500 MG in 0.9 % Sodium Chloride 250 ML 15.3 MG IVCONT (09:20)
--- NOTE | 2024-09-17 10:13 | MHC.CLN ---
F/U PT REMAINS INTUBATED AND SEDATED REVIEWED LABS DISCUSSED AT ROUNDS WITH MD CONTINUE PROMOTE TF AT MAX GOAL RATE 40ML/HR WITH 240ML FREE WATER FLUSHES Q 6 HRS PROVIDES 960KCALS (1477KCALS WITH SEDATION; 20.8KCALS/KG CMW), 60G PROTEIN (.85G/KG), 1765ML TOTAL WATER FROM FORMULA AND FLUSHES (25ML/KG) CONTINUE TO MONITOR TOLERANCE AND LYTES
[2024-09-17] MEDS: dexmedeTOMIDidine HCL/NS 400 MCG/100 ML INFUS..BTL 20.28 MCG IVCONT (12:37)
[2024-09-17 13:29] LABS: VDRL Qualitative CSF Nonreactive (Nonreactive)
--- NOTE | 2024-09-17 14:47 | MHC.CM.PN ---
Pt extubated and on room air: pt's sister Divya filed and received approval for a Section 35. Instructed her to call [employer] when pt has d/c'd [facility]. She requests pt not be told of court order. Pt will be seen by CARE team prior to d/c for resource information re: polysubstance use. No services are anticipated. CM to follow
[2024-09-17 15:57] LABS: JC Polyoma Virus RT CSF Not Detected (Not Detected)
[2024-09-17] MEDS: dexmedeTOMIDidine HCL/NS 400 MCG/100 ML INFUS..BTL 26.36 MCG IVCONT (17:07)
--- NOTE | 2024-09-17 18:49 | PC.NURSE ---
08:00 full bed bath provided 08:30 Fentanyl paused per MD; start sedation vacation as tolerated 11:21 Propofol paused per MD 11:49 Ketamine gtt decreased from 30mg/hr to 15 mg/hr per MD. 12:00 PSV trial initated. PSV 10/5.0, 21% 12:10 Ketamine gtt paused per MD. MD to bedside to assess pt. Pt not following commands but opens eyes, volumes ~600, RR 13-14 bpm. 12:35 patient extubated per MD with RN and RT present. Pt extubated to room air. Pt restless, crying, asking for mama. 12:37 Per MD Precedex gtt started per protocol for pt attempting to get up OOB, not able to be redirected, restless/agitated. Sister Divya present and reassuring patient at extubation time. Plan for mother to visit at 14:00. Pt remained calm when asleep but agitated, flailing arms, attempting to get OOB with awakening to light stimuli. Pt unable to tolerate weaning from Precedex gtt @1.3 this shift.
[2024-09-17] MEDS: fentaNYL citrate/PF 100 MCG/2 ML VIAL 50 MCG IVPUSH (19:20)
[2024-09-17] MEDS: dexmedeTOMIDidine HCL/NS 400 MCG/100 ML INFUS..BTL 30.41 MCG IVCONT ×2 (19:23→22:39)
[2024-09-17 20:17] LABS: Vancomycin Random 8.9 mcg/mL (15-20)
--- NOTE | 2024-09-17 20:24 | HE.PHANOTE ---
Re: Tari Good renal function. Trough returned very low at 8.9. Pt was refusing labs, pt had to be put in a 4 point restraint, labs were drawn at 1999. Dose increased due to low trough, returned to 1250mg q8h with predicted trough of 14.2 and predicted AUC 531. Next trough 09/18 @1800.
[2024-09-17] MEDS: vancomycin HCL 1,250 MG in 0.9 % Sodium Chloride 250 ML 166.67 MG IV (21:28)
[2024-09-17 22:29] LABS: Albumin, CSF 21.8 mg/dL (8.0-42.0); IgG 1270 mg/dL (600-1640); IgG Synthesis Rate -3.7 mg/24 h (-9.9-3.3); IgG, CSF 4.3 mg/dL (0.8-7.7)
[2024-09-18] VITALS (24 sets, daily range): BP systolic 81–146; BP diastolic 30–103; PULSE 13–97; RESP 10–21; TEMP 36.8–37.5; O2SAT 98–100
[2024-09-18] MEDS: levETIRAcetam in NaCl (iso-os) 1,000 MG/100 ML PIGGYBACK 400 MG IV ×2 (00:53→14:47)
[2024-09-18] MEDS: dexmedeTOMIDidine HCL/NS 400 MCG/100 ML INFUS..BTL 30.41 MCG IVCONT ×3 (01:50→08:35)
[2024-09-18] MEDS: vancomycin HCL 1,250 MG in 0.9 % Sodium Chloride 250 ML 166.67 MG IV (03:29)
[2024-09-18] MEDS: cefEPime HCl/D5W 2 GM/50 ML PIGGYBACK IV ×3 (05:13→20:00)
[2024-09-18] MEDS: fentaNYL citrate/PF 100 MCG/2 ML VIAL 25 MCG IVPUSH (05:15)
[2024-09-18 06:37] LABS: Creatinine Clr Calc Pharmacy 149.2; Estimated Glomerular Filt Rate > 60
[2024-09-18] MEDS: 0.9 % Sodium Chloride Flush 3 ML SYRINGE IVFLUSH ×2 (08:42→16:26)
--- NOTE | 2024-09-18 08:45 | P.PNCC_ITS ---
Subjective Subjective Date of Service: 09/18/24 Critical Care Time (minutes): 35 Comment: Extubated yesterday, tolerating liberation from ventilator okay Mental status continues to be poor, does not follow any significant commands On Precedex drip for anxiolysis which we will taper today Physical Exam 2 Vital Signs: Vital Signs: Last Vital Signs Temp 99.5 F 09/18/24 08:00 Pulse 87 09/18/24 08:00 Resp 11 L 09/18/24 08:00 BP 140/93 H 09/18/24 08:00 Pulse Ox 100 09/18/24 08:00 O2 Del Method Room Air 09/18/24 08:00 O2 Flow Rate 2 09/13/24 21:56 FiO2 21 09/17/24 12:00 BMI result Body Mass Index 28.9 General: Young dark skinned lean built male lying in the bed, confused Nutritional Appearance: Okay nourished and normal weight Eyes: appearance normal, both eyes and all related structures; Alignment and Position: alignment normal and position normal Neck: No lymphadenopathy, no thyromegaly Resp: bilateral air entry equal, no added sounds present Cardio: Regular rate, regular rhythm; Heart sounds: S1 normal heart sound present and S2 normal heart sound present GI: soft, nontender, no guarding, no hepatosplenomegaly : bladder normal to inspection, bladder normal to palpation, no renal angle tenderness Skin: no rashes or lesions noted and elasticity normal Neuro: Confused, moves all extremities Objective Data Labs 09/17/24 04:41 09/18/24 05:33 Labs: Laboratory Results - last 24 hr 09/13/24 09/14/24 09/14/24 13:21 12:49 12:50 Hold Purple Top Creatinine Estim Creat Clear Calc Estimated GFR Albumin (Send Out) 3.0 L CSF Albumin 21.8 CSF IgG Index 0.47 CSF IgG Synthesis Rate -3.7 CSF/Serum IgG Index 4.3 CSF VDRL Nonreactive ANTOINETTE Virus DNA Rpt Status Not Detected Random Vancomycin IgG Index 1270 Lymphocyte Subset Cmmnt TNP 09/17/24 09/18/24 20:00 05:33 Hold Purple Top SEE NOTE SEE NOTE Creatinine 0.75 Estim Creat Clear Calc 149.2 Estimated GFR > 60 Albumin (Send Out) CSF Albumin CSF IgG Index CSF IgG Synthesis Rate CSF/Serum IgG Index CSF VDRL ANTOINETTE Virus DNA Rpt Status Random Vancomycin 8.9 L IgG Index Lymphocyte Subset Cmmnt Microbiology Microbiology Results: Microbiology 09/14/24 12:49 Cerebrospinal Fluid Gram Stain - Final 09/14/24 12:49 Cerebrospinal Fluid CSF Examination - Final 09/14/24 12:49 Cerebrospinal Fluid Fluid Description - Final 09/14/24 12:49 Cerebrospinal Fluid CSF Culture - Final No growth after 3 days. Progress Note: A&P Assessment and plan (1) Transaminitis: Status: Acute (2) Acute cholecystitis: Status: Acute (3) Choledocholithiasis: Status: Acute (4) Abdominal pain: Status: Acute (5) HIV (human immunodeficiency virus infection): Status: Acute (6) Encephalopathy: Status: Acute (7) Generalized convulsive seizures: Status: Acute Plan Neuro: Acute encephalopathy possibly due to a combination of toxic encephalopathy from amphetamines and possibly metabolic encephalopathy from acute cholecystitis leading to seizure disorder. Lumbar puncture showing normal glucose, normal protein and low cell count making meningitis unlikely. CSF meningitis panel negative. MRI of the brain did not show any acute intracranial changes on Klonopin, oxycodone and valproic acid We will wean off Precedex drip as tolerated Cardiac: Shock resolved Respiratory: Acute respiratory failure due to poor respiratory drive secondary to seizures Extubated yesterday, tolerating liberation from ventilator okay GI: on tube feeds Transaminitis: Secondary to choledocholithiasis and possible cholecystitis as liver ultrasound showed gallbladder sludge with gallbladder stones with mild wall thickening GI deferred doing a ERCP for now Liver function improving Renal: We will closely monitor I's and O's Avoid nephrotoxic medications Heme: Chronic anemia, closely monitor H&H, transfuse for hemoglobin less than 7 grams/deciliter Endocrine: Blood sugars under control Sliding scale insulin as needed Infectious disease: Pancultures negative so far On vanc, cefepime; Unasyn and acyclovir discontinued HIV positive, viral culture 60,000 and CD4 count around 280 CSF ANTOINETTE virus, toxo, VDRL still pending Musculoskeletal: Decubitus ulcer prevention protocol Lines: Peripheral Prophylaxis: Lovenox, pantoprazole Quality Stroke Does the patient have a stroke diagnosis?: No VTE Prior VTE?: No VTE Risk Level:: Medical - moderate - high VTE Device Contraindication: N/A - Device Ordered VTE Drug Contraindication: Treatment Not Indicated
--- NOTE | 2024-09-18 10:31 | MHC.CLN ---
F/U PT EXTUBATED YESTERDAY DISCUSSED AT ROUNDS WITH MD DIET CHANGED TO NPO PENDING NSG SWALLOW EVAL PT DID TAKE SOME ICE CHIPS WHEN DIET TO ADVANCE, RECOMMEND REGULAR DIET; CONSIDER LOW FAT R/T CHOLECYSTITIS CAN ADD NUTRITION SUPPLEMENT IF PO INTAKE <25% FOLLOWING WITH TEAM
[2024-09-18 11:15] LABS: Glucose, Whole Blood 89 mg/dL (60-115)
[2024-09-18 11:39] LABS: EBV DNA PCR Detected (Not Detected); EBV Source Whole Blood
--- NOTE | 2024-09-18 11:40 | MHC.CM.PN ---
Pt on room air but continues to require Precedex for aggitation: alert and verbal: will have swallow eval for advancement of diet. D/C plan: return to home: no services: active Section [address] - pt's sister or [facility] staff to call [facility] at time of pt discharge. CM to follow
[2024-09-18] MEDS: oxyCODONE HCl Immed Release 5 MG TABLET 10 MG PO (12:15)
[2024-09-18] MEDS: clonazePAM 1 MG TABLET PO (12:16)
[2024-09-18] MEDS: Valproic Acid Liquid 250 MG/5 ML SOLUTION 500 MG PO (12:18)
[2024-09-18] MEDS: Haloperidol Lactate 5 MG/ML VIAL IM (14:41)
[2024-09-18] MEDS: LORazepam 2 MG/ML VIAL IVPUSH (14:48)
[2024-09-18] MEDS: 0.9 % Sodium Chloride 1,000 ML 999 ML IV (16:45)
--- NOTE | 2024-09-18 17:30 | PC.NURSE ---
Patient was due to void at 1700, bladder scan for 390ml, provider notified, patient sleeping, per MD to hold off on str cath at this time. Will continue to monitor
--- NOTE | 2024-09-18 17:35 | PM.EVENT ---
Event Note Date of Service: 09/18/24 Event Note: This is a 24-year-old male who presented to the emergency department with abdominal pain found to have cholecystitis. While he was in the emergency department he was found to have a white powdery substance he subsequently tested positive for amphetamines. He was admitted to the hospital with plans for cholecystectomy but due to altered mental status he was unable to consent for the procedure. Following that he began having seizures. Due to persistent seizures he was transferred to the intensive care unit on September 13 and intubated. He was started on Keppra. Per ICU attending family reports history of seizures in the past. LP negative for acute infection. MRI negative for acute changes. Was extubated September 17 and weaned off of Precedex drip. EBV was detected in the blood, per ID no further treatment indicated, official consult pending. For cholecystitis, treated conservatively with antibiotics. Also noted to be HIV positive which reportedly was known to the patient although not disclosed on admission. Patient had episode of agitation this afternoon, Haldol was not effective, Ativan was sedating. Per ICU attending recommend Zyprexa or Salvadordon if further episodes of agitation versus repeating Ativan. For further details please see daily note by ICU. Time Spent With Patient Time: Total time managing care of this patient today ____ minutes.
[2024-09-18 17:49] LABS: Glucose, Whole Blood 75 mg/dL (60-115)
--- NOTE | 2024-09-18 19:35 | PC.NURSE ---
Approximately at 1430 pt became agitated and aggressive, Unable to be redirected.?Code assist Called. MD at bedside. Haldol 5mg IM and Ativan 2mg IVP given per NOV.?@1600 BP 81/30 1L NS given per MD orders.
[2024-09-18 20:28] LABS: Toxoplasma gondii IgG - CSF <0.90; Toxoplasma gondii IgM CSF <0.80
--- NOTE | 2024-09-18 22:04 | W.PM.IDCN ---
History of Present Illness Data of Consult Service Date: 09/18/24 Requesting physician: Divya Man Primary Care Provider: None Physician HPI Reason for consult: HIV positive He presents to hospital with abdominal pain and nausea for a day. He had previous GI bleed. He had seizures and was intubated 09/13 and extubated on 09/17. Now he is somnolent. Review of Systems Review of Systems: Yes Unobtainable due to mental condition PMFSH Past Medical History Medical History HIV (human immunodeficiency virus infection) Family History Family history: reviewed and not pertinent Social History Social History Household Members: None Household Members Other:: sister assisted in answering questions as patient is sleepy Housing: Apartment Do you presently have visiting nurse or other home services: No Alcohol intake: never Comment: patient has a sitter 1:1 Patient Tobacco Use Status: Never used Tobacco Use of substances other than those prescribed or required for medical reasons: Yes Substance Use Type: Amphetamines and Methamphetamine Substance Use Frequency: Daily Last Used Substance: Just Prior to Admission Currently Displaying Signs/Symptoms of Drug Intoxication Withdrawal: No Have you been hit, kicked, punched, or otherwise hurt by someone within the past year? If so, by whom?: No Do you feel safe in your current relationship?: No Current Relationship Is there a partner from a previous relationship who is making you feel unsafe now?: No Are you made to feel afraid or neglected: No Advance Directives: No Do you have a plan to hurt others: No Plan Recently lost weight without trying: No Nutrition Risks: No Nutritional Risk Meds Allergies Allergy/AdvReac Type Severity Reaction Status Date / Time No Known Allergies Allergy Verified 09/11/24 02:57 [No Known Allergies*] Active Medications: Current Medications Acetaminophen (Acetaminophen 325 Mg Tablet) 650 mg PO Q6H PRN PRN Reason: Pain, Mild 1-3,fever,headache Calcium Carbonate (Calcium Carbonate 750 Mg Tab.Chew) 750 mg PO Q4H PRN PRN Reason: Heartburn Clonazepam (Clonazepam 1 Mg Tablet) 1 mg PO TID DEVON Last Admin: 09/18/24 16:04 Dose: Not Given Levetiracetam (Keppra) 1,000 mg in 100 mls @ 400 mls/hr IV Q12H [facility] Last Infusion: 09/18/24 15:21 Dose: Infused Cefepime HCl (Maxipime) 2 gm in 50 mls @ 100 mls/hr IV Q8H [facility] Last Admin: 09/18/24 20:00 Dose: 100 mls/hr Magnesium Hydroxide (Milk Of Magnesia 30 Ml Oral.Susp) 30 ml PO DAILY PRN PRN Reason: Constipation Melatonin (Melatonin 3 Mg Tablet) 6 mg PO BEDTIME PRN PRN Reason: Insomnia Sodium Chloride (0.9 % Sodium Chloride Flush 3 Ml Syringe) 3 ml IVFLUSH QSHIFT [facility] Last Admin: 09/18/24 16:26 Dose: 3 ml Physical Exam Vital Signs: Vital Signs: Last Vital Signs Temp 99.4 F 09/18/24 16:00 Pulse 89 09/18/24 21:46 Resp 17 09/18/24 21:46 BP 113/70 09/18/24 21:46 Pulse Ox 100 09/18/24 21:46 O2 Del Method Room Air 09/18/24 21:46 O2 Flow Rate 2 09/13/24 21:56 FiO2 21 09/17/24 12:00 BMI result Body Mass Index 28.9 Const: General: cooperative HEENT: Head: Yes normal to inspection Face and sinus: Yes normal facial exam Mouth: Normal oral and palatal mucosa present Teeth and gingiva: dentition normal Eyes: General: appearance normal, both eyes and all related structures Pupils: Equal, round and reactive pupils present Resp: Effort & Inspection: normal respiratory effort Cardio: Rate: regular rate Rhythm: regular rhythm GI: Palpation (GI): Soft to palpation and nontender : General: Yes no CVA tenderness Back/Spine/Pelvis: Back: no CVA tenderness Skin: General skin exam: no rashes or lesions noted Neuro: General: moves all extremities Cranial nerves: Yes Equal, round and reactive pupils present Extrem: General: Yes normal to inspection Psych: Other: somnolent Appearance: grossly normal Results Labs 09/17/24 04:41 09/18/24 05:33 Labs: BMP 09/18/24 05:33 Creatinine 0.75 Microbiology Microbiology Results: Microbiology 09/14/24 12:49 Cerebrospinal Fluid Gram Stain - Final 12/30/24 12:49 Cerebrospinal Fluid CSF Examination - Final 09/14/24 12:49 Cerebrospinal Fluid Fluid Description - Final 09/14/24 12:49 Cerebrospinal Fluid CSF Culture - Final No growth after 3 days. Assessment and Plan (1) HIV (human immunodeficiency virus infection): Status: Acute (2) Encephalopathy: Status: Acute (3) Generalized convulsive seizures: Status: Acute (4) Choledocholithiasis: Status: Acute Plan He is too somnolent to start HAART. LP rather unremarkable. EBV blood not of consequence as common,nothing to treat. Probable Biktarvy when awake. No treatment for EBV blood.
[2024-09-19] VITALS (25 sets, daily range): BP systolic 110–152; BP diastolic 61–92; PULSE 78–115; RESP 12–21; TEMP 36.9–37; O2SAT 92–100; BMI 28.8
[2024-09-19] MEDS: levETIRAcetam in NaCl (iso-os) 1,000 MG/100 ML PIGGYBACK 400 MG IV ×2 (01:52→12:00)
[2024-09-19] MEDS: cefEPime HCl/D5W 2 GM/50 ML PIGGYBACK IV ×3 (05:22→20:33)
[2024-09-19 05:54] LABS: Albumin Level 3.6 g/dL (3.5-5.0); Alkaline Phosphatase 110 U/L (39-117); Anion Gap 19 (12-20); Aspartate Amino Transferase 52 U/L (5-37); Bilirubin Total 0.5 mg/dL (0.0-1.0); Blood Urea Nitrogen 12 mg/dL (9-16); Calcium 8.8 mg/dL (8.4-10.2); Carbon Dioxide 14 mmol/L (22-29); Chloride 117 mmol/L (96-108); Creatinine Clr Calc Pharmacy 153.3; Estimated Glomerular Filt Rate > 60; Glucose Random 77 mg/dL (60-115); Magnesium 2.2 mg/dL (1.6-2.6); Phosphorus 3.7 mg/dL (2.7-4.5); Potassium 5.9 mmol/L (3.3-5.1); Sodium 144 mmol/L (135-145); Total Protein 7.1 g/dL (6.5-8.0)
[2024-09-19 05:59] LABS: Glucose, Whole Blood 144 mg/dL (60-115)
[2024-09-19] MEDS: Insulin Regular, Human 100 UNIT/ML 10 ML VIAL IVPUSH (06:56)
[2024-09-19] MEDS: Haloperidol Lactate 5 MG/ML VIAL IM (07:07)
[2024-09-19] MEDS: Albuterol Sulfate (0.083%) 2.5 MG/3 ML VIAL.NEB 10 MG INHALE (07:23)
--- NOTE | 2024-09-19 07:37 | P.PNIM_ITS ---
Subjective Subjective Date of Service: 09/19/24 Review of Systems Follow-up pseudoseizures ICU transfer Physical Exam 2 Vital Signs: Vital Signs: Last Vital Signs Temp 98.6 F 09/19/24 04:00 Pulse 88 09/19/24 07:23 Resp 17 09/19/24 07:23 BP 137/89 09/19/24 07:00 Pulse Ox 98 09/19/24 07:00 O2 Del Method Room Air 09/19/24 07:00 O2 Flow Rate 2 09/13/24 21:56 FiO2 21 09/17/24 12:00 BMI result Body Mass Index 28.8 Appearing in no acute distress, sleeping lung sounds are clear to auscultation heart regular rate rhythm, clear S1, S2 positive bowel sounds, abdomen is soft, nontender neuro patient is sleeping, pretty much nonresponsive and examined Objective Data Active Medications Acetaminophen (Acetaminophen 325 Mg Tablet) 650 mg PO Q6H PRN PRN Reason: Pain, Mild 1-3,fever,headache Calcium Carbonate (Calcium Carbonate 750 Mg Tab.Chew) 750 mg PO Q4H PRN PRN Reason: Heartburn Clonazepam (Clonazepam 1 Mg Tablet) 1 mg PO TID [facility] Last Admin: 09/19/24 00:33 Dose: Not Given Documented By: KIMO Non-Admin Reason: previous RN\ Levetiracetam (Keppra) 1,000 mg in 100 mls @ 400 mls/hr IV Q12H [facility] Last Infusion: 09/19/24 02:16 Dose: Infused Documented By: KIMO Cefepime HCl (Maxipime) 2 gm in 50 mls @ 100 mls/hr IV Q8H [facility] Last Infusion: 09/19/24 05:56 Dose: Infused Documented By: KIMO Dextrose ([id number]) 250 mls @ 750 mls/hr IV Q15M PRN PRN Reason: per Hypoglycemia Standing Ord. Magnesium Hydroxide (Milk Of Magnesia 30 Ml Oral.Susp) 30 ml PO DAILY PRN PRN Reason: Constipation Melatonin (Melatonin 3 Mg Tablet) 6 mg PO BEDTIME PRN PRN Reason: Insomnia Sodium Chloride (0.9 % Sodium Chloride Flush 3 Ml Syringe) 3 ml IVFLUSH QSHIFT [facility] Last Admin: 09/19/24 01:36 Dose: Not Given Documented By: KIMO Non-Admin Reason: IV Running Labs 09/19/24 11:40 09/19/24 11:40 Labs: Laboratory Results - last 24 hr 09/14/24 09/15/24 09/18/24 12:49 13:13 11:12 Anion Gap Estim Creat Clear Calc Estimated GFR POC Glucose 89 Random Glucose Calcium Phosphorus Magnesium Total Bilirubin AST ALT Alkaline Phosphatase Total Protein Albumin CSF Toxo. gondii IgG <0.90 CSF Toxo. gondii IgM <0.80 EBV Source Whole Blood EBV DNA (PCR) Detected A* 09/18/24 09/19/24 09/19/24 17:43 05:33 05:55 Anion Gap 19 Estim Creat Clear Calc 153.3 Estimated GFR > 60 POC Glucose 75 144 H Random Glucose 77 Calcium 8.8 Phosphorus 3.7 Magnesium 2.2 Total Bilirubin 0.5 AST 52 H ALT TNP Alkaline Phosphatase 110 Total Protein 7.1 Albumin 3.6 CSF Toxo. gondii IgG CSF Toxo. gondii IgM EBV Source EBV DNA (PCR) Assessment and Plan (1) Acute cholecystitis: Status: Acute (2) Generalized convulsive seizures: Status: Acute Plan 24-year-old male who presented to the emergency department with abdominal pain found to have cholecystitis. While he was in the emergency department he was found to have a white powdery substance he subsequently tested positive for amphetamines. He was admitted to the hospital with plans for cholecystectomy but due to altered mental status he was unable to consent for the procedure. Following that he began having seizures. Due to persistent seizures he was transferred to the intensive care unit on September 13 and intubated. He was started on Keppra. Per ICU attending family reports history of seizures in the past. LP negative for acute infection. MRI negative for acute changes. Was extubated September 17 and weaned off of Precedex drip. EBV was detected in the blood, per ID no further treatment indicated. Cholecystitis, treated conservatively with antibiotics. Also noted to be HIV positive which reportedly was known to the patient although not disclosed on admission. Patient had episode of agitation this afternoon, Haldol was not effective, Ativan was sedating. Per ICU attending recommend Zyprexa or Geodon if further episodes of agitation versus repeating Ativan. For further details please see daily note by ICU. Seizure vs Pseudoseizures Started on IV Keppra load initially Klonopin TID Normal LP Normal head MRI Seen evaluated by Neurology, seizures possibly related to toxic exposure Acute cholecystitis At this time due to change in mental status continue conservative management with IV cefepime Supportive care Analgesia as needed Surgery following Transaminitis Secondary to shoe cholecystitis Trended down after antibiotic treatment Discussed with the GI/general surgery when patient fully recovers from acute medical history at this time HIV Consider HAART treatment when more alert, likely Biktarvy EBV Seen evaluated by Infectious Disease, no need to treat at this time Microcytic anemia No sign of bleeding Follow H&H DVT prophylaxis with pneumatic compression boots Full code Quality Stroke Does the patient have a stroke diagnosis?: No VTE Prior VTE?: No VTE Risk Level:: Medical - moderate - high VTE Device Contraindication: N/A - Device Ordered VTE Drug Contraindication: Treatment Not Indicated
[2024-09-19] MEDS: Dextrose 10 % 250 ML 750 ML IV (08:11)
[2024-09-19] MEDS: 0.9 % Sodium Chloride Flush 3 ML SYRINGE IVFLUSH ×2 (08:17→16:13)
[2024-09-19 08:30] LABS: Glucose, Whole Blood 60 mg/dL (60-115)
[2024-09-19 08:44] LABS: Glucose, Whole Blood 106 mg/dL (60-115)
[2024-09-19] MEDS: Dextrose 5 % and 0.9 % NaCl 1,000 ML 150 ML IVCONT ×3 (08:50→22:23)
[2024-09-19 10:39] LABS: Glucose, Whole Blood 77 mg/dL (60-115)
[2024-09-19 11:35] LABS: Glucose, Whole Blood 135 mg/dL (60-115)
[2024-09-19 11:45] LABS: MANUAL DIFF FLAG NO
[2024-09-19 11:57] LABS: Basophils Percent Auto 0.3 % (0-2); Eosinophils Absolute Auto 0.2 X10*3/uL (0.0-0.4); Eosinophils Percent Auto 2.6 % (0-4); Hematocrit 37.8 % (42.0-52.0); Imm Gran Abs Auto 0.05 X10*3/uL (0.00-0.03); Imm Gran Pct Auto 0.6 % (0.0-0.4); Lymphocytes Absolute Auto 2.2 X10*3/uL (1.2-4.9); Lymphocytes Percent Auto 28.6 % (20-40); Mean Corpuscular HGB Conc 31.7 g/dl (31.0-36.0); Mean Corpuscular Hemoglobin 24.3 pg (27.0-33.0); Mean Corpuscular Volume 76.7 fL (80.0-98.0); Mean Platelet Volume 9.2 fL (9.4-12.4); Monocytes Absolute Auto 0.8 X10*3/uL (0.1-1.2); Monocytes Percent Auto 10.7 % (2-11); Neutrophils Absolute Auto 4.5 x10*3/uL (2.0-8.3); Neutrophils Percent Auto 57.2 % (45-73); Platelet Count 330 X10*3/uL (160-400); Red Blood Count 4.93 X10*6/uL (4.60-5.80); Red Cell Distribution Width 16.7 % (11.0-16.0); White Blood Count 7.8 X10*3/uL (4.8-10.8)
[2024-09-19 12:13] LABS: Alanine Aminotransferase 71 U/L (0-40); Albumin Level 3.6 g/dL (3.5-5.0); Alkaline Phosphatase 102 U/L (39-117); Aspartate Amino Transferase 24 U/L (5-37); Bilirubin Total 0.6 mg/dL (0.0-1.0); Blood Urea Nitrogen 8 mg/dL (9-16); Calcium 8.6 mg/dL (8.4-10.2); Creatinine Clr Calc Pharmacy 169.5; Estimated Glomerular Filt Rate > 60; Glucose Random 141 mg/dL (60-115); Total Protein 6.9 g/dL (6.5-8.0)
[2024-09-19 12:19] LABS: Glucose, Whole Blood 133 mg/dL (60-115)
[2024-09-19 12:27] LABS: Anion Gap 14 (12-20); Carbon Dioxide 21 mmol/L (22-29); Chloride 110 mmol/L (96-108); Potassium 3.5 mmol/L (3.3-5.1); Sodium 141 mmol/L (135-145)
--- NOTE | 2024-09-19 13:26 | P.PNCC_ITS ---
Subjective Subjective Date of Service: 09/19/24 Critical Care Time (minutes): 35 Comment: Patient had 2 episodes of pseudoseizures this morning Remains drowsy, blood pressure is better Physical Exam 2 Vital Signs: Vital Signs: Last Vital Signs Temp 98.6 F 09/19/24 04:00 Pulse 89 09/19/24 13:00 Resp 18 09/19/24 13:00 BP 125/77 09/19/24 13:00 Pulse Ox 99 09/19/24 13:00 O2 Del Method Room Air 09/19/24 13:00 O2 Flow Rate 2 09/13/24 21:56 FiO2 21 09/17/24 12:00 BMI result Body Mass Index 28.8 General: acute distress, ill appearing and tired appearing Nutritional Appearance: well nourished and overweight Eyes: appearance normal, both eyes and all related structures; Alignment and Position: alignment normal and position normal Neck: No lymphadenopathy, no thyromegaly Resp: bilateral air entry equal, occasional added sounds present Cardio: Regular rate, regular rhythm; Heart sounds: S1 normal heart sound present and S2 normal heart sound present GI: soft, nontender, no guarding, no hepatosplenomegaly : bladder normal to inspection, bladder normal to palpation, no renal angle tenderness Skin: no rashes or lesions noted and elasticity normal Neuro: Drowsy, no focal deficits Objective Data Labs 09/19/24 11:40 09/19/24 11:40 Labs: Laboratory Results - last 24 hr 09/14/24 09/18/24 09/19/24 12:49 17:43 05:33 WBC RBC Hgb Hct MCV MCH MCHC RDW Plt Count MPV Immature Gran % (Auto) Neut % (Auto) Lymph % (Auto) [place] % (Auto) Eos % (Auto) Baso % (Auto) Lymph # (Auto) [place] # (Auto) Eos # (Auto) Baso # (Auto) Abs Immat Gran (auto) Absolute Neuts (auto) Absolute Nucleated RBC Nucleated RBC % (auto) Sodium 144 Potassium 5.9 H D Chloride 117 H Carbon Dioxide 14 L Anion Gap 19 BUN 12 Creatinine 0.73 Estim Creat Clear Calc 153.3 Estimated GFR > 60 POC Glucose 75 Random Glucose 77 Calcium 8.8 Phosphorus 3.7 Magnesium 2.2 Total Bilirubin 0.5 AST 52 H ALT TNP Alkaline Phosphatase 110 Total Protein 7.1 Albumin 3.6 CSF Toxo. gondii IgG <0.90 CSF Toxo. gondii IgM <0.80 09/19/24 09/19/24 09/19/24 05:55 08:00 08:39 WBC RBC Hgb Hct MCV MCH MCHC RDW Plt Count MPV Immature Gran % (Auto) Neut % (Auto) Lymph % (Auto) [place] % (Auto) Eos % (Auto) Baso % (Auto) Lymph # (Auto) [place] # (Auto) Eos # (Auto) Baso # (Auto) Abs Immat Gran (auto) Absolute Neuts (auto) Absolute Nucleated RBC Nucleated RBC % (auto) Sodium Potassium Chloride Carbon Dioxide Anion Gap BUN Creatinine Estim Creat Clear Calc Estimated GFR POC Glucose 144 H 60 106 Random Glucose Calcium Phosphorus Magnesium Total Bilirubin AST ALT Alkaline Phosphatase Total Protein Albumin CSF Toxo. gondii IgG CSF Toxo. gondii IgM 09/19/24 09/19/24 09/19/24 10:33 11:33 11:40 WBC 7.8 RBC 4.93 Hgb 12.0 L Hct 37.8 L MCV 76.7 L MCH 24.3 L MCHC 31.7 RDW 16.7 H Plt Count 330 D MPV 9.2 L Immature Gran % (Auto) 0.6 H Neut % (Auto) 57.2 Lymph % (Auto) 28.6 [place] % (Auto) 10.7 Eos % (Auto) 2.6 Baso % (Auto) 0.3 Lymph # (Auto) 2.2 [place] # (Auto) 0.8 Eos # (Auto) 0.2 Baso # (Auto) 0.0 Abs Immat Gran (auto) 0.05 H Absolute Neuts (auto) 4.5 Absolute Nucleated RBC 0.000 Nucleated RBC % (auto) 0.0 Sodium 141 Potassium 3.5 D Chloride 110 H Carbon Dioxide 21 L Anion Gap 14 BUN 8 L Creatinine 0.66 Estim Creat Clear Calc 169.5 Estimated GFR > 60 POC Glucose 77 135 H Random Glucose 141 H Calcium 8.6 Phosphorus Magnesium Total Bilirubin 0.6 AST 24 ALT 71 H Alkaline Phosphatase 102 Total Protein 6.9 Albumin 3.6 CSF Toxo. gondii IgG CSF Toxo. gondii IgM 09/19/24 12:12 WBC RBC Hgb Hct MCV MCH MCHC RDW Plt Count MPV Immature Gran % (Auto) Neut % (Auto) Lymph % (Auto) [place] % (Auto) Eos % (Auto) Baso % (Auto) Lymph # (Auto) [place] # (Auto) Eos # (Auto) Baso # (Auto) Abs Immat Gran (auto) Absolute Neuts (auto) Absolute Nucleated RBC Nucleated RBC % (auto) Sodium Potassium Chloride Carbon Dioxide Anion Gap BUN Creatinine Estim Creat Clear Calc Estimated GFR POC Glucose 133 H Random Glucose Calcium Phosphorus Magnesium Total Bilirubin AST ALT Alkaline Phosphatase Total Protein Albumin CSF Toxo. gondii IgG CSF Toxo. gondii IgM Microbiology Microbiology Results: Microbiology 09/14/24 12:49 Cerebrospinal Fluid Gram Stain - Final 09/14/24 12:49 Cerebrospinal Fluid CSF Examination - Final 09/14/24 12:49 Cerebrospinal Fluid Fluid Description - Final 09/14/24 12:49 Cerebrospinal Fluid CSF Culture - Final No growth after 3 days. Progress Note: A&P Assessment and plan (1) Transaminitis: Status: Acute (2) Acute cholecystitis: Status: Acute (3) Choledocholithiasis: Status: Acute (4) Abdominal pain: Status: Acute (5) HIV (human immunodeficiency virus infection): Status: Acute (6) Altered mental status: Status: Acute (7) Encephalopathy: Status: Acute (8) Generalized convulsive seizures: Status: Acute Plan Neuro: Acute encephalopathy possibly due to a combination of toxic encephalopathy from amphetamines withdrawals possibly We noted 2 episodes of pseudoseizures, both episodes were in front of his Mom. While having the episodes we talked to him and he said he was just stretching and nothing else. Delivered hold off on any further treatment for these episodes. Lumbar puncture showing normal glucose, normal protein and low cell count making meningitis unlikely. CSF meningitis panel negative. MRI of the brain did not show any acute intracranial changes on Klonopin, oxycodone and valproic acid Cardiac: Shock resolved Respiratory: Acute respiratory failure due to poor respiratory drive secondary to seizures Extubated 2 days ago, tolerating liberation from ventilator okay GI: on tube feeds Transaminitis: Secondary to choledocholithiasis and possible cholecystitis as liver ultrasound showed gallbladder sludge with gallbladder stones with mild wall thickening Liver function back to normal, white count normal. Continue antibiotics for a total of 14 days GI deferred doing a ERCP for now Renal: We will closely monitor I's and O's Avoid nephrotoxic medications Hyperkalemia: Possibly secondary to volume depletion We will treat him with IV fluids Heme: Chronic anemia, closely monitor H&H, transfuse for hemoglobin less than 7 grams/deciliter Endocrine: Blood sugars under control Sliding scale insulin as needed Infectious disease: Pancultures negative so far On vanc, cefepime; Unasyn and acyclovir discontinued HIV positive, viral culture 60,000 and CD4 count around 280 CSF ANTOINETTE virus, toxo, VDRL still pending Musculoskeletal: Decubitus ulcer prevention protocol Lines: Peripheral Prophylaxis: Lovenox, pantoprazole Quality Stroke Does the patient have a stroke diagnosis?: No VTE Prior VTE?: No VTE Risk Level:: Medical - moderate - high VTE Device Contraindication: N/A - Device Ordered VTE Drug Contraindication: Treatment Not Indicated
--- NOTE | 2024-09-19 18:02 | PC.NURSE ---
1500 Valium held d/t drowsiness provider aware. 1600 patient noted to be having seizure like activity decorticate posturing noted to bilat arms although pt following commands when asked to stretch arms and provide hand grasps. During entire episode that lasted approximately one minute patient was following commands with intermittent heavy breathing and posturing. Pupils 2B tracks when asked with movement. When asked if in pain patient pointing to stomach at this time. Vitals remained stable oxygen sat high 90-100 on room air. 1:1 at bedside at all times for safety bed in lowest position. Maldonado Garcia MANUFACTURING DESIGN ENGINEER notified of events no new orders at this time.
[2024-09-19 18:13] LABS: Glucose, Whole Blood 94 mg/dL (60-115)
--- NOTE | 2024-09-19 18:59 | PC.NURSE ---
RN witnessed patient having what appears to be seizure like activity at 1900. Patient having abnormal body like movements, tightening limbs, one leg in the air, turned his head to the side with contracted facial movement which lasted 5-10 seconds. Sitter at bedside states she can tell when its going to happen when heart rate increases to 90, then it happens and she showed me at start of shift and seems to coorelate. Daytime staff aware. She states it has happened 6 times since this afternoon. Mother in today and states it has happened at home as well. Patient on Keppra. Will continue to monitor closely.
[2024-09-19] MEDS: clonazePAM 1 MG TABLET PO (22:25)
[2024-09-19 23:46] LABS: Glucose, Whole Blood 162 mg/dL (60-115)
[2024-09-20] VITALS: BP 143/80; PULSE 94; RESP 19; O2SAT 100
[2024-09-20 02:58] VITALS: BP 126/64; PULSE 98; RESP 17; TEMP 36.6; O2SAT 100
[2024-09-20] MEDS: clonazePAM 1 MG TABLET PO (05:13)
[2024-09-20] MEDS: cefEPime HCl/D5W 2 GM/50 ML PIGGYBACK IV ×3 (05:21→20:35)
--- NOTE | 2024-09-20 05:27 | PC.NURSE ---
Patient continues to have what are being called pseudo seizures with more frequency and longer duration. The patient was medicated the night before when i had him with ativan and haldol so he slept. This patient had haldol this morning but nothing during the day. Patients mother and sister came in who have never seen him act this way before and were very concerned. First witnessed event by this RN was upon shift start when the sitter called me in and explained to me what she has been watching all day. She states that she could tell when the event would happen and that is when his heart rate went from 80 to 90. She called me in twice after that to verify what she was explaining and it seemed to coorelate. The patients limbs would get rigid, hand would ball up and his leg would go up in the air, his neck would twist and his face would contort. His breathing would change, his heart rate would go as high as 150. He would get red in the face and his tounge would roll back. The sitter said it happened about six times during the day, and it at least 8 times my shift before patient was transferred out to the med/surg unit. The covering provider is aware of these events and is at bedside speaking with the patients mother and sister. Report was called to receiving RN and patient safely transferred to med surg unit while being monitored.
[2024-09-20 07:11] LABS: MANUAL DIFF FLAG NO
[2024-09-20] MEDS: 0.9 % Sodium Chloride Flush 3 ML SYRINGE IVFLUSH ×3 (07:12→21:23)
[2024-09-20 07:14] LABS: Basophils Percent Auto 0.2 % (0-2); Eosinophils Absolute Auto 0.2 X10*3/uL (0.0-0.4); Eosinophils Percent Auto 2.1 % (0-4); Hematocrit 36.8 % (42.0-52.0); Hemoglobin 11.9 g/dl (14.0-18.0); Imm Gran Abs Auto 0.08 X10*3/uL (0.00-0.03); Imm Gran Pct Auto 0.9 % (0.0-0.4); Lymphocytes Absolute Auto 1.7 X10*3/uL (1.2-4.9); Lymphocytes Percent Auto 17.7 % (20-40); Mean Corpuscular HGB Conc 32.3 g/dl (31.0-36.0); Mean Corpuscular Hemoglobin 24.7 pg (27.0-33.0); Mean Corpuscular Volume 76.3 fL (80.0-98.0); Mean Platelet Volume 9.4 fL (9.4-12.4); Monocytes Percent Auto 10.4 % (2-11); Neutrophils Absolute Auto 6.4 x10*3/uL (2.0-8.3); Neutrophils Percent Auto 68.7 % (45-73); Platelet Count 365 X10*3/uL (160-400); Red Blood Count 4.82 X10*6/uL (4.60-5.80); Red Cell Distribution Width 16.6 % (11.0-16.0); White Blood Count 9.3 X10*3/uL (4.8-10.8)
[2024-09-20 07:36] LABS: Alanine Aminotransferase 69 U/L (0-40); Albumin Level 3.8 g/dL (3.5-5.0); Alkaline Phosphatase 104 U/L (39-117); Anion Gap 10 (12-20); Aspartate Amino Transferase 35 U/L (5-37); Bilirubin Total 0.4 mg/dL (0.0-1.0); Blood Urea Nitrogen 6 mg/dL (9-16); Carbon Dioxide 21 mmol/L (22-29); Chloride 112 mmol/L (96-108); Estimated Glomerular Filt Rate > 60; Glucose Random 107 mg/dL (60-115); Magnesium 1.8 mg/dL (1.6-2.6); Phosphorus 1.6 mg/dL (2.7-4.5); Potassium 3.7 mmol/L (3.3-5.1); Sodium 139 mmol/L (135-145); Total Protein 7.2 g/dL (6.5-8.0)
--- NOTE | 2024-09-20 08:38 | P.CNPS_ITS ---
History of Present Illness Date of Service: 09/20/24 Chief Complaint: acute cholecystitis Reason for Consult: Called by Anneliese Parr re pseudo seizures but also having seizures- and was given keppra in icu- but pt having behavioral problems and ongoing smaller seizures- started on clonazepam as well - Suggested she load depakote and stop keppra as that is not helpful in someone with seizures and behavioral issues- Anneliese was able to speak with mom who reported hx of psychosis for him when younger - Pt not living with mom (she may live in [place]) and dad also lives elsewhere- but hadn't continued in care - Pt agitated and got clonazepam for that- prn atypicals not likely helpful given seizure hx- Requesting physician: Anneliese Garcia Discussed with referring provider: Yes Sources of Information: patient interviewed (attempted) and chart reviewed Additional Sources of Information: father is present at bed side HPI Narrative: 24 yo presented to ER with abdominal pain, found to have possible gb problems and then ICU with worsening seizures- was put on keppra- possible hx of psychosis in past Recent Crystal meth use- white powder ?that or adderall - could ppt seizures- Past Psychiatric History: mom from [place] reports hx of psychosis / schizophrenia- unknown if it is childhood or since meth- Dad pashto speaking says he and son live independent of each other Medical Evaluation Reviewed: Yes gal bladder infection and seizures Personal & Social History: pt not cooperative at this time [facility] Medical History HIV (human immunodeficiency virus infection) Family History: limited information Social History: was eating pizza with friends when abdominal pain began Substance History: crystal meth use 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 Diagnostics Vital Signs (24Hr): Vital Signs - 24 hr 09/19/24 09:00 09/19/24 10:00 09/19/24 11:00 Temperature Pulse Rate 89 91 90 Respiratory Rate 15 15 18 Blood Pressure 120/71 117/73 112/71 Pulse Oximetry 92 95 100 Oxygen Delivery Method Room Air Room Air Room Air 09/19/24 12:00 09/19/24 13:00 09/19/24 14:00 Temperature Pulse Rate 86 89 85 Respiratory Rate 15 18 18 Blood Pressure 132/81 125/77 122/79 Pulse Oximetry 98 99 98 Oxygen Delivery Method Room Air Room Air Room Air 09/19/24 15:00 09/19/24 16:00 09/19/24 17:00 Temperature 98.5 F Pulse Rate 78 85 78 Respiratory Rate 12 15 12 Blood Pressure 120/77 133/87 110/61 Pulse Oximetry 100 100 Oxygen Delivery Method Room Air Room Air Room Air 09/19/24 17:57 09/19/24 19:00 09/19/24 20:00 Temperature Pulse Rate 82 82 87 Respiratory Rate 15 15 Blood Pressure 119/64 129/82 126/79 Pulse Oximetry 100 100 100 Oxygen Delivery Method Room Air Room Air Room Air 09/19/24 20:43 09/19/24 21:58 09/19/24 23:00 Temperature Pulse Rate 83 101 H 92 Respiratory Rate 14 20 16 Blood Pressure 126/79 132/80 125/75 Pulse Oximetry 100 99 99 Oxygen Delivery Method Room Air Room Air Room Air 09/20/24 00:00 09/20/24 02:58 Temperature 97.9 F Pulse Rate 94 98 Respiratory Rate 19 17 Blood Pressure 143/80 H 126/64 Pulse Oximetry 100 100 Oxygen Delivery Method Room Air Room Air BMI result Body Mass Index 28.8 Labs 09/20/24 06:40 09/20/24 06:40 Labs: Laboratory Results - last 48 hr 09/14/24 09/15/24 09/18/24 12:49 13:13 11:12 WBC RBC Hgb Hct MCV MCH MCHC RDW Plt Count MPV Immature Gran % (Auto) Neut % (Auto) Lymph % (Auto) [place] % (Auto) Eos % (Auto) Baso % (Auto) Lymph # (Auto) [place] # (Auto) Eos # (Auto) Baso # (Auto) Abs Immat Gran (auto) Absolute Neuts (auto) Absolute Nucleated RBC Nucleated RBC % (auto) Sodium Potassium Chloride Carbon Dioxide Anion Gap BUN Creatinine Estim Creat Clear Calc Estimated GFR POC Glucose 89 Random Glucose Calcium Phosphorus Magnesium Total Bilirubin AST ALT Alkaline Phosphatase Total Protein Albumin CSF Toxo. gondii IgG <0.90 CSF Toxo. gondii IgM <0.80 EBV Source Whole Blood EBV DNA (PCR) Detected A* 09/18/24 09/19/24 09/19/24 17:43 05:33 05:55 WBC RBC Hgb Hct MCV MCH MCHC RDW Plt Count MPV Immature Gran % (Auto) Neut % (Auto) Lymph % (Auto) [place] % (Auto) Eos % (Auto) Baso % (Auto) Lymph # (Auto) [place] # (Auto) Eos # (Auto) Baso # (Auto) Abs Immat Gran (auto) Absolute Neuts (auto) Absolute Nucleated RBC Nucleated RBC % (auto) Sodium 144 Potassium 5.9 H D Chloride 117 H Carbon Dioxide 14 L Anion Gap 19 BUN 12 Creatinine 0.73 Estim Creat Clear Calc 153.3 Estimated GFR > 60 POC Glucose 75 144 H Random Glucose 77 Calcium 8.8 Phosphorus 3.7 Magnesium 2.2 Total Bilirubin 0.5 AST 52 H ALT TNP Alkaline Phosphatase 110 Total Protein 7.1 Albumin 3.6 CSF Toxo. gondii IgG CSF Toxo. gondii IgM EBV Source EBV DNA (PCR) 09/19/24 09/19/24 09/19/24 08:00 08:39 10:33 WBC RBC Hgb Hct MCV MCH MCHC RDW Plt Count MPV Immature Gran % (Auto) Neut % (Auto) Lymph % (Auto) [place] % (Auto) Eos % (Auto) Baso % (Auto) Lymph # (Auto) [place] # (Auto) Eos # (Auto) Baso # (Auto) Abs Immat Gran (auto) Absolute Neuts (auto) Absolute Nucleated RBC Nucleated RBC % (auto) Sodium Potassium Chloride Carbon Dioxide Anion Gap BUN Creatinine Estim Creat Clear Calc Estimated GFR POC Glucose 60 106 77 Random Glucose Calcium Phosphorus Magnesium Total Bilirubin AST ALT Alkaline Phosphatase Total Protein Albumin CSF Toxo. gondii IgG CSF Toxo. gondii IgM EBV Source EBV DNA (PCR) 09/19/24 09/19/24 09/19/24 11:33 11:40 12:12 WBC 7.8 RBC 4.93 Hgb 12.0 L Hct 37.8 L MCV 76.7 L MCH 24.3 L MCHC 31.7 RDW 16.7 H Plt Count 330 D MPV 9.2 L Immature Gran % (Auto) 0.6 H Neut % (Auto) 57.2 Lymph % (Auto) 28.6 [place] % (Auto) 10.7 Eos % (Auto) 2.6 Baso % (Auto) 0.3 Lymph # (Auto) 2.2 [place] # (Auto) 0.8 Eos # (Auto) 0.2 Baso # (Auto) 0.0 Abs Immat Gran (auto) 0.05 H Absolute Neuts (auto) 4.5 Absolute Nucleated RBC 0.000 Nucleated RBC % (auto) 0.0 Sodium 141 Potassium 3.5 D Chloride 110 H Carbon Dioxide 21 L Anion Gap 14 BUN 8 L Creatinine 0.66 Estim Creat Clear Calc 169.5 Estimated GFR > 60 POC Glucose 135 H 133 H Random Glucose 141 H Calcium 8.6 Phosphorus Magnesium Total Bilirubin 0.6 AST 24 ALT 71 H Alkaline Phosphatase 102 Total Protein 6.9 Albumin 3.6 CSF Toxo. gondii IgG CSF Toxo. gondii IgM EBV Source EBV DNA (PCR) 09/19/24 09/19/24 09/20/24 18:07 23:39 06:40 WBC 9.3 RBC 4.82 Hgb 11.9 L Hct 36.8 L MCV 76.3 L MCH 24.7 L MCHC 32.3 RDW 16.6 H Plt Count 365 MPV 9.4 Immature Gran % (Auto) 0.9 H Neut % (Auto) 68.7 Lymph % (Auto) 17.7 L [place] % (Auto) 10.4 Eos % (Auto) 2.1 Baso % (Auto) 0.2 Lymph # (Auto) 1.7 [place] # (Auto) 1.0 Eos # (Auto) 0.2 Baso # (Auto) 0.0 Abs Immat Gran (auto) 0.08 H Absolute Neuts (auto) 6.4 Absolute Nucleated RBC 0.000 Nucleated RBC % (auto) 0.0 Sodium 139 Potassium 3.7 Chloride 112 H Carbon Dioxide 21 L Anion Gap 10 L BUN 6 L Creatinine 0.67 Estim Creat Clear Calc 167.0 Estimated GFR > 60 POC Glucose 94 162 H Random Glucose 107 Calcium 9.0 Phosphorus 1.6 L Magnesium 1.8 Total Bilirubin 0.4 AST 35 ALT 69 H Alkaline Phosphatase 104 Total Protein 7.2 Albumin 3.8 CSF Toxo. gondii IgG CSF Toxo. gondii IgM EBV Source EBV DNA (PCR) Imaging Radiology Impressions: ITS Impressions Abdomen/Pelvis CT 09/11/24 02:55 IMPRESSION: Retained stool. No evidence for bowel obstruction. Gallbladder appears to be mildly distended. Fleischner guidelines were followed. Electronically signed by: Neftali Elizondo MD 09/11/2024 04:37 [place] [facility] [place] 09/11/24 07:42 IMPRESSION: 1. Choledocholithiasis secondary to a 3 mm calculus in the mid common duct. In retrospect, this can be seen on the coronal CT images (series 6, image 36), however is extremely subtle. Recommend correlation with MRCP for confirmation. 2. Distended gallbladder with layering sludge, small mobile gallstones, and a nonmobile small stones within the gallbladder neck. Negative sonographic East sign. There is mild wall thickening and edema measuring up to 5 mm. These findings are equivocal for acute cholecystitis, although patient's symptomatology and laboratory findings are most likely explained by the 3 mm common duct calculus. Electronically signed by: Rajeev Cardenas MD 09/11/2024 09:33 AM [facility] [facility] [place] Status Exam Mental Status Exam Narrative: Pt not cooperative at moment-dressed in vamshi getting iv and surrounded by security- father sitting at bed side- Patient Appearance: Perspiring and Unkempt Patient Orientation: Person Level of Consciousness: Awake Patient Behavior: Avoidant Ability to Follow Directions: Fair Speech Pattern: Impoverished Thought Content: positive for [place] Judgement: Fair Medications Medications Current Medications Acetaminophen (Acetaminophen 325 Mg Tablet) 650 mg PO Q6H PRN PRN Reason: Pain, Mild 1-3,fever,headache Calcium Carbonate (Calcium Carbonate 750 Mg Tab.Chew) 750 mg PO Q4H PRN PRN Reason: Heartburn Clonazepam (Clonazepam 1 Mg Tablet) 1 mg PO TID [facility] Last Admin: 09/20/24 05:13 Dose: 1 mg Cefepime HCl (Maxipime) 2 gm in 50 mls @ 100 mls/hr IV Q8H [facility] Last Infusion: 09/20/24 06:15 Dose: Infused Magnesium Hydroxide (Milk Of Magnesia 30 Ml Oral.Susp) 30 ml PO DAILY PRN PRN Reason: Constipation Melatonin (Melatonin 3 Mg Tablet) 6 mg PO BEDTIME PRN PRN Reason: Insomnia Sodium Chloride (0.9 % Sodium Chloride Flush 3 Ml Syringe) 3 ml IVFLUSH QSHIFT [facility] Last Admin: 09/20/24 07:12 Dose: 3 ml Allergies Allergies Allergy/AdvReac Type Severity Reaction Status Date / Time No Known Allergies Allergy Verified 09/11/24 02:57 [No Known Allergies*] Assessment & Plan Assessment & Plan (1) HIV (human immunodeficiency virus infection): Status: Acute Code(s): B20 - Human immunodeficiency virus [HIV] disease (2) Generalized convulsive seizures: Status: Acute Code(s): R56.9 - Unspecified convulsions (3) Choledocholithiasis: Status: Acute Code(s): K80.50 - Calculus of bile duct without cholangitis or cholecystitis without obstruction (4) Methamphetamine abuse: Status: Acute Code(s): F15.10 - Other stimulant abuse, uncomplicated Plan discussed with hospitalist- depakote loading dose tonight then 1000mg bid, hopefully liver will tolerate it- and it could help seizures and behavior=- might want to consider lorazepam over clonzapine- keeping in mind benzos can be disinhibiting for some- Total time managing care of this patient today ____ minutes.
--- NOTE | 2024-09-20 08:53 | HO.PM.IMPN ---
Subjective Subjective Date of Service: 09/20/24 Review of Systems Follow-up pseudoseizures vs seizure ICU transfer Physical Exam Vital Signs: Vital Signs: Last Vital Signs Temp 97.9 F 09/20/24 02:58 Pulse 98 09/20/24 02:58 Resp 17 09/20/24 02:58 BP 126/64 09/20/24 02:58 Pulse Ox 100 09/20/24 02:58 O2 Del Method Room Air 09/20/24 02:58 O2 Flow Rate 2 09/13/24 21:56 FiO2 21 09/17/24 12:00 BMI result Body Mass Index 28.8 Objective Data Active Medications Acetaminophen (Acetaminophen 325 Mg Tablet) 650 mg PO Q6H PRN PRN Reason: Pain, Mild 1-3,fever,headache Calcium Carbonate (Calcium Carbonate 750 Mg Tab.Chew) 750 mg PO Q4H PRN PRN Reason: Heartburn Clonazepam (Clonazepam 1 Mg Tablet) 1 mg PO TID [facility] Last Admin: 09/20/24 05:13 Dose: 1 mg Documented By: PARADISE Comments: per md to give med now Cefepime HCl (Maxipime) 2 gm in 50 mls @ 100 mls/hr IV Q8H [facility] Last Infusion: 09/20/24 06:15 Dose: Infused Documented By: PARADISE Magnesium Hydroxide (Milk Of Magnesia 30 Ml Oral.Susp) 30 ml PO DAILY PRN PRN Reason: Constipation Melatonin (Melatonin 3 Mg Tablet) 6 mg PO BEDTIME PRN PRN Reason: Insomnia Sodium Chloride (0.9 % Sodium Chloride Flush 3 Ml Syringe) 3 ml IVFLUSH QSHIFT [facility] Last Admin: 09/20/24 07:12 Dose: 3 ml Documented By: TEDDY Labs 09/20/24 06:40 09/20/24 06:40 Labs: Laboratory Results - last 24 hr 09/19/24 09/19/24 09/19/24 10:33 11:33 11:40 MCV 76.7 L MCH 24.3 L MCHC 31.7 RDW 16.7 H Plt Count 330 D MPV 9.2 L Immature Gran % (Auto) 0.6 H Neut % (Auto) 57.2 Lymph % (Auto) 28.6 [place] % (Auto) 10.7 Eos % (Auto) 2.6 Baso % (Auto) 0.3 Lymph # (Auto) 2.2 [place] # (Auto) 0.8 Eos # (Auto) 0.2 Baso # (Auto) 0.0 Abs Immat Gran (auto) 0.05 H Absolute Neuts (auto) 4.5 Absolute Nucleated RBC 0.000 Nucleated RBC % (auto) 0.0 Anion Gap 14 Estim Creat Clear Calc 169.5 Estimated GFR > 60 POC Glucose 77 135 H Random Glucose 141 H Calcium 8.6 Phosphorus Magnesium Total Bilirubin 0.6 AST 24 ALT 71 H Alkaline Phosphatase 102 Total Protein 6.9 Albumin 3.6 09/19/24 09/19/24 09/19/24 12:12 18:07 23:39 MCV MCH MCHC RDW Plt Count MPV Immature Gran % (Auto) Neut % (Auto) Lymph % (Auto) [place] % (Auto) Eos % (Auto) Baso % (Auto) Lymph # (Auto) [place] # (Auto) Eos # (Auto) Baso # (Auto) Abs Immat Gran (auto) Absolute Neuts (auto) Absolute Nucleated RBC Nucleated RBC % (auto) Anion Gap Estim Creat Clear Calc Estimated GFR POC Glucose 133 H 94 162 H Random Glucose Calcium Phosphorus Magnesium Total Bilirubin AST ALT Alkaline Phosphatase Total Protein Albumin 09/20/24 06:40 MCV 76.3 L MCH 24.7 L MCHC 32.3 RDW 16.6 H Plt Count 365 MPV 9.4 Immature Gran % (Auto) 0.9 H Neut % (Auto) 68.7 Lymph % (Auto) 17.7 L [place] % (Auto) 10.4 Eos % (Auto) 2.1 Baso % (Auto) 0.2 Lymph # (Auto) 1.7 [place] # (Auto) 1.0 Eos # (Auto) 0.2 Baso # (Auto) 0.0 Abs Immat Gran (auto) 0.08 H Absolute Neuts (auto) 6.4 Absolute Nucleated RBC 0.000 Nucleated RBC % (auto) 0.0 Anion Gap 10 L Estim Creat Clear Calc 167.0 Estimated GFR > 60 POC Glucose Random Glucose 107 Calcium 9.0 Phosphorus 1.6 L Magnesium 1.8 Total Bilirubin 0.4 AST 35 ALT 69 H Alkaline Phosphatase 104 Total Protein 7.2 Albumin 3.8 Assessment and Plan (1) Acute cholecystitis: Status: Acute (2) Generalized convulsive seizures: Status: Acute Plan 24-year-old male who presented to the emergency department with abdominal pain found to have cholecystitis. While he was in the emergency department he was found to have a white powdery substance he subsequently tested positive for amphetamines. He was admitted to the hospital with plans for cholecystectomy but due to altered mental status he was unable to consent for the procedure. Following that he began having seizures. Due to persistent seizures he was transferred to the intensive care unit on September 13 and intubated. He was started on Keppra. Per ICU attending family reports history of seizures in the past. LP negative for acute infection. MRI negative for acute changes. Was extubated September 17 and weaned off of Precedex drip. EBV was detected in the blood, per ID no further treatment indicated. Cholecystitis, treated conservatively with antibiotics. Also noted to be HIV positive which reportedly was known to the patient although not disclosed on admission. Patient had episode of agitation this afternoon, Haldol was not effective, Ativan was sedating. Per ICU attending recommend Zyprexa or Geodon if further episodes of agitation versus repeating Ativan. For further details please see daily note by ICU. Seizure vs Pseudoseizures Started on IV Keppra load initially Normal LP Normal head MRI Seen evaluated by Neurology, seizures possibly related to toxic exposure from drugs? psych consult> rec starting Depakote as this would cover both seizure and behavioral issues from medtal illness, stop keppra, also add ativan TID prn Hx of schizophrenia according to mother dx at 17, had been on medications but off for some time now psych consult> rec starting Depakote, stop keppra, also add ativan TID prn Acute cholecystitis At this time due to change in mental status continue conservative management with IV cefepime Supportive care Analgesia as needed Surgery following Transaminitis Secondary to cholecystitis Trended down after antibiotic treatment Discussed with the GI/general surgery when patient fully recovers from acute medical history at this time Subtance abuse hx amphetamine use addiction team when patient more coherent HIV Consider HAART treatment when more alert, likely Biktarvy EBV Seen evaluated by Infectious Disease, no need to treat at this time Microcytic anemia No sign of bleeding Follow H&H DVT prophylaxis with pneumatic compression boots Full code Quality Stroke Does the patient have a stroke diagnosis?: No VTE Prior VTE?: No VTE Risk Level:: Medical - moderate - high VTE Device Contraindication: N/A - Device Ordered VTE Drug Contraindication: Treatment Not Indicated
[2024-09-20] MEDS: levETIRAcetam 500 MG TABLET PO (10:04)
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
[2024-09-20 12:00] VITALS: BP 125/78; PULSE 95; RESP 18; TEMP 37.6; O2SAT 99
[2024-09-20] MEDS: Valproic Acid (as Sodium Salt) 1,500 MG in 0.9 % Sodium Chloride 100 ML 100 MG IV (13:44)
--- NOTE | 2024-09-20 13:46 | PC.NURSE ---
Patients father being rude and threatening to this senior writer. Attempt to redirect. Security called, Clin Sup to bed side. Attempt to educate patient about new IV. Pt unable to understand basic concepts, and father unable to understand basic concepts. Security pulled father out of patients room to speak in private. Father agrees to not disrupt care and respect Hospital staff.
--- NOTE | 2024-09-20 17:22 | PC.NURSE ---
Pt in bed with eyes closed, no resp distress.
[2024-09-20 18:27] VITALS: BP 146/80; PULSE 96; RESP 18; TEMP 37.2; O2SAT 99
[2024-09-20] MEDS: Valproic Acid (as Sodium Salt) 750 MG in Dextrose 5 % 50 ML 57.5 MG IV (21:21)
[2024-09-20] MEDS: Melatonin 3 MG TABLET 6 MG PO (22:57)
[2024-09-21 03:45] VITALS: BP 144/78; PULSE 81; RESP 18; TEMP 36.2; O2SAT 98
[2024-09-21] MEDS: cefEPime HCl/D5W 2 GM/50 ML PIGGYBACK IV (04:40)
[2024-09-21 06:00] VITALS: BMI 25.3
[2024-09-21 07:54] VITALS: BP 143/87; PULSE 97; RESP 18; TEMP 37.1; O2SAT 100
--- NOTE | 2024-09-21 08:18 | P.PNIM_ITS ---
Subjective Subjective Date of Service: 09/21/24 Review of Systems Follow-up pseudoseizures vs seizure ICU transfer 09/20/24 no reported sz activity overnight more awake and aware Physical Exam 2 Vital Signs: Vital Signs: Last Vital Signs Temp 98.8 F 09/21/24 07:54 Pulse 97 09/21/24 07:54 Resp 18 09/21/24 07:54 BP 143/87 H 09/21/24 07:54 Pulse Ox 100 09/21/24 07:54 O2 Del Method Room Air 09/21/24 07:54 O2 Flow Rate 2 09/13/24 21:56 FiO2 21 09/17/24 12:00 BMI result Body Mass Index 28.8 Appearing in no acute distress lung sounds are clear to auscultation heart regular rate rhythm, clear S1, S2 positive bowel sounds, abdomen is soft, nontender neuro patient is alert x3, no focal deficits Objective Data Active Medications Acetaminophen (Acetaminophen 325 Mg Tablet) 650 mg PO Q6H PRN PRN Reason: Pain, Mild 1-3,fever,headache Calcium Carbonate (Calcium Carbonate 750 Mg Tab.Chew) 750 mg PO Q4H PRN PRN Reason: Heartburn Valproic Acid 1,500 mg/ Sodium (Chloride) 115 mls @ 100 mls/hr IV ONCE [facility] Last Infusion: 09/20/24 15:00 Dose: Infused Documented By: TEDDY Valproic Acid 1,000 mg/ (Dextrose) 60 mls @ 57.5 mls/hr IV Q12H [facility] Lorazepam (Lorazepam 2 Mg/Ml Vial) 0.5 mg IVPUSH Q6H PRN PRN Reason: agitation Magnesium Hydroxide (Milk Of Magnesia 30 Ml Oral.Susp) 30 ml PO DAILY PRN PRN Reason: Constipation Melatonin (Melatonin 3 Mg Tablet) 6 mg PO BEDTIME PRN PRN Reason: Insomnia Last Admin: 09/20/24 22:57 Dose: 6 mg Documented By: BALDO Sodium Chloride (0.9 % Sodium Chloride Flush 3 Ml Syringe) 3 ml IVFLUSH QSHIFT [facility] Last Admin: 09/20/24 21:23 Dose: 3 ml Documented By: BALDO Labs 09/20/24 06:40 09/20/24 06:40 Assessment and Plan (1) Acute cholecystitis: Status: Acute (2) Generalized convulsive seizures: Status: Acute Plan 24-year-old male who presented to the emergency department with abdominal pain found to have cholecystitis. While he was in the emergency department he was found to have a white powdery substance he subsequently tested positive for amphetamines. He was admitted to the hospital with plans for cholecystectomy but due to altered mental status he was unable to consent for the procedure. Following that he began having seizures. Due to persistent seizures he was transferred to the intensive care unit on September 13 and intubated. He was started on Keppra. Per ICU attending family reports history of seizures in the past. LP negative for acute infection. MRI negative for acute changes. Was extubated September 17 and weaned off of Precedex drip. EBV was detected in the blood, per ID no further treatment indicated. Cholecystitis, treated conservatively with antibiotics. Also noted to be HIV positive which reportedly was known to the patient although not disclosed on admission. Patient had episode of agitation this afternoon, Haldol was not effective, Ativan was sedating. Per ICU attending recommend Zyprexa or Salvadordon if further episodes of agitation versus repeating Ativan. For further details please see daily note by ICU. Seizure vs Pseudoseizures Started on IV Keppra load initially Normal LP Normal head MRI Seen evaluated by Neurology, seizures possibly related to toxic exposure from drugs? psych consult> rec starting Depakote as this would cover both seizure and behavioral issues from medtal illness, stop keppra, also add ativan TID prn s/p depakote load, now 1000 BID EEG ordered Hx of schizophrenia according to mother dx at 17, had been on medications but off for some time now psych consult> rec starting Depakote, stop keppra, also add ativan TID prn will need care team consult once medically clear Acute cholecystitis At this time due to change in mental status continue conservative management completed 8 days of IV cefepime Supportive care Analgesia as needed Surgery following Transaminitis Secondary to cholecystitis Trended down after antibiotic treatment Discussed with the GI/general surgery when patient fully recovers from acute medical history at this time Subtance abuse hx amphetamine use addiction team when patient more coherent HIV Consider HAART treatment when more alert, likely Biktarvy EBV Seen evaluated by Infectious Disease, no need to treat at this time Microcytic anemia No sign of bleeding Follow H&H DVT prophylaxis with pneumatic compression boots Full code Quality Stroke Does the patient have a stroke diagnosis?: No VTE Prior VTE?: No VTE Risk Level:: Medical - moderate - high VTE Device Contraindication: N/A - Device Ordered VTE Drug Contraindication: Treatment Not Indicated
[2024-09-21] MEDS: Valproic Acid (as Sodium Salt) 1,000 MG in Dextrose 5 % 50 ML 57.5 MG IV ×2 (08:20→20:42)
[2024-09-21] MEDS: 0.9 % Sodium Chloride Flush 3 ML SYRINGE IVFLUSH (08:20)
[2024-09-21] MEDS: Nicotine 7 MG PATCH.TD24 TRANSDERMA (11:33)
[2024-09-21] MEDS: Calcium Carbonate 750 MG TAB.CHEW PO (14:28)
[2024-09-21] MEDS: Acetaminophen 325 MG TABLET 650 MG PO (14:28)
[2024-09-21 15:42] VITALS: BP 144/93; PULSE 111; RESP 18; TEMP 36.4; O2SAT 100
--- NOTE | 2024-09-21 16:09 | MHC.CM.PN ---
Per MD rounds Careteam evaluation ordered to determine if patient requires INPLOC.
[2024-09-21] MEDS: Nicotine Polacrilex 2 MG GUM BUCCAL (17:24)
--- NOTE | 2024-09-21 18:39 | PC.NURSE ---
Pt cooperative today no outburst no noted seizure activity . remained on one to one sitter .
[2024-09-21 19:21] VITALS: BP 139/88; PULSE 95; RESP 16; TEMP 36.5; O2SAT 100
[2024-09-21] MEDS: Melatonin 3 MG TABLET 6 MG PO (20:45)
--- NOTE | 2024-09-22 | EEG_ITS ---
FINDINGS: The waking background activity consists of low voltage fast frequencies seen diffusely, intermixed with low voltage posterior 11 Hz alpha frequency and excessive amounts of beta frequencies of 18 to 22 Hz. Frequent eye movements, muscle artifact, and electrode artifacts related to sweating are noted. Towards the end of the record, the patient had a period of drowsiness with diffuse slowing. Photic stimulation is without activation. Hyperventilation was omitted. No focal, lateralizing, or paroxysmal discharges were seen. IMPRESSION: This awake and briefly drowsy EEG is within normal limits. No epileptiform discharges were seen. MD ALYSSA Wooten/[place] / [id number]
[2024-09-22] MEDS: LORazepam 2 MG/ML VIAL 0.5 MG IVPUSH ×2 (01:21→07:30)
--- NOTE | 2024-09-22 01:31 | PC.NURSE ---
Addendum entered by Deirdre Jimenez RN 09/22/24 06:39: 0639- no other issues overnight Original Note: Patient became upset about having to stay in the hospital this long and wondering why he was unable to leave. Said he was going to leave if he was not to be discharged. Patient then continued to walk off the floor- sitter notified staff that patient is leaving- security called. This nurse found patient downstairs in hallway stating I need to go, I just want to leave . Patient not aggressive with nurse just unable to comprehend why he has to stay in hospital- nurse tried to redirect patient while waiting for security. Security arrived and brought patient back onto floor. MD Simon called to bedside to speak with patient in regards of him needing to stay. Patient visibility upset/ agitated. Security had to move patient back into room. This nurse calmly explained to patient the importance of staying in the hospital and offered patient Ativan- which patient agreed to. Ativan given and patient more calm in room- eating cereal
[2024-09-22 03:35] VITALS: BP 138/89; PULSE 108; RESP 16; TEMP 36.2; O2SAT 100
[2024-09-22] MEDS: Nicotine Polacrilex 2 MG GUM BUCCAL ×4 (05:34→14:19)
[2024-09-22 06:18] LABS: Alanine Aminotransferase 61 U/L (0-40); Albumin Level 4.4 g/dL (3.5-5.0); Alkaline Phosphatase 104 U/L (39-117); Anion Gap 10 (12-20); Aspartate Amino Transferase 20 U/L (5-37); Bilirubin Direct 0.2 mg/dL (0.0-0.5); Bilirubin Total 0.3 mg/dL (0.0-1.0); Blood Urea Nitrogen 11 mg/dL (9-16); Calcium 9.4 mg/dL (8.4-10.2); Carbon Dioxide 26 mmol/L (22-29); Chloride 107 mmol/L (96-108); Creatinine Clr Calc Pharmacy 140.3; Estimated Glomerular Filt Rate > 60; Glucose Random 110 mg/dL (60-115); Potassium 3.9 mmol/L (3.3-5.1); Sodium 139 mmol/L (135-145); Total Protein 8.2 g/dL (6.5-8.0)
[2024-09-22] MEDS: Acetaminophen 325 MG TABLET 650 MG PO (07:35)
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
[2024-09-22] MEDS: Divalproex Sodium 500 MG TABLET.DR 1000 MG PO (08:04)
[2024-09-22] MEDS: 0.9 % Sodium Chloride Flush 3 ML SYRINGE IVFLUSH (08:04)
--- NOTE | 2024-09-22 09:14 | P.PNIM_ITS ---
Subjective Subjective Date of Service: 09/22/24 Review of Systems Follow-up pseudoseizures vs seizure ICU transfer 09/20/24 no reported sz activity overnight more awake and aware Physical Exam 2 Vital Signs: Vital Signs: Last Vital Signs Temp 97.2 F 09/22/24 03:35 Pulse 108 H 09/22/24 03:35 Resp 16 09/22/24 03:35 BP 138/89 09/22/24 03:35 Pulse Ox 100 09/22/24 03:35 O2 Del Method Room Air 09/22/24 03:35 O2 Flow Rate 2 09/13/24 21:56 FiO2 21 09/17/24 12:00 BMI result Body Mass Index 25.3 Appearing in no acute distress lung sounds are clear to auscultation heart regular rate rhythm, clear S1, S2 positive bowel sounds, abdomen is soft, nontender neuro patient is alert x3, no focal deficits Objective Data Active Medications Acetaminophen (Acetaminophen 325 Mg Tablet) 650 mg PO Q6H PRN PRN Reason: Pain, Mild 1-3,fever,headache Last Admin: 09/22/24 07:35 Dose: 650 mg Documented By: DARRION Calcium Carbonate (Calcium Carbonate 750 Mg Tab.Chew) 750 mg PO Q4H PRN PRN Reason: Heartburn Last Admin: 09/21/24 14:28 Dose: 750 mg Documented By: ALICIAUSINelda Divalproex Sodium (Divalproex Sodium 500 Mg Tablet.Dr) 1,000 mg PO BID [facility] Last Admin: 09/22/24 08:04 Dose: 1,000 mg Documented By: KEISHA Valproic Acid 1,500 mg/ Sodium (Chloride) 115 mls @ 100 mls/hr IV ONCE [facility] Last Infusion: 09/20/24 15:00 Dose: Infused Documented By: TEDDY Lorazepam (Lorazepam 2 Mg/Ml Vial) 0.5 mg IVPUSH Q6H PRN PRN Reason: agitation Last Admin: 09/22/24 07:30 Dose: 0.5 mg Documented By: DARRION Magnesium Hydroxide (Milk Of Magnesia 30 Ml Oral.Susp) 30 ml PO DAILY PRN PRN Reason: Constipation Melatonin (Melatonin 3 Mg Tablet) 6 mg PO BEDTIME PRN PRN Reason: Insomnia Last Admin: 09/21/24 20:45 Dose: 6 mg Documented By: BALDO Nicotine Polacrilex (Nicotine Polacrilex 2 Mg Gum) 2 mg BUCCAL Q1H PRN PRN Reason: Nicotine Cravings Last Admin: 09/22/24 07:35 Dose: 2 mg Documented By: DARRION Sodium Chloride (0.9 % Sodium Chloride Flush 3 Ml Syringe) 3 ml IVFLUSH QSHIFT [facility] Last Admin: 09/22/24 08:04 Dose: 3 ml Documented By: GENIEINNM Labs 09/20/24 06:40 09/22/24 05:42 Labs: Laboratory Results - last 24 hr 09/22/24 05:42 Anion Gap 10 L Estim Creat Clear Calc 140.3 Estimated GFR > 60 Random Glucose 110 Calcium 9.4 Total Bilirubin 0.3 Direct Bilirubin 0.2 AST 20 ALT 61 H Alkaline Phosphatase 104 Total Protein 8.2 H Albumin 4.4 Assessment and Plan (1) Acute cholecystitis: Status: Acute (2) Generalized convulsive seizures: Status: Acute Plan 24-year-old male who presented to the emergency department with abdominal pain found to have cholecystitis. While he was in the emergency department he was found to have a white powdery substance he subsequently tested positive for amphetamines. He was admitted to the hospital with plans for cholecystectomy but due to altered mental status he was unable to consent for the procedure. Following that he began having seizures. Due to persistent seizures he was transferred to the intensive care unit on September 13 and intubated. He was started on Keppra. Per ICU attending family reports history of seizures in the past. LP negative for acute infection. MRI negative for acute changes. Was extubated September 17 and weaned off of Precedex drip. EBV was detected in the blood, per ID no further treatment indicated. Cholecystitis, treated conservatively with antibiotics. Also noted to be HIV positive which reportedly was known to the patient although not disclosed on admission. Patient had episode of agitation this afternoon, Haldol was not effective, Ativan was sedating. Per ICU attending recommend Sae or Reba if further episodes of agitation versus repeating Ativan. For further details please see daily note by ICU. Seizure vs Pseudoseizures NO seizures for 24 hrs Started on IV Keppra load initially Normal LP Normal head MRI Seen evaluated by Neurology, seizures possibly related to toxic exposure from drugs? psych consult> rec starting Depakote as this would cover both seizure and behavioral issues from mental illness, stop keppra, also add ativan TID prn s/p depakote load, now 1000 BID EEG ordered care team consultation pending Hx of schizophrenia according to mother dx at 17, had been on medications but off for some time now psych consult> rec starting Depakote, stop keppra, also add ativan TID prn will need care team consult once medically clear Acute cholecystitis At this time due to change in mental status continue conservative management completed 8 days of IV cefepime Supportive care Analgesia as needed Surgery following Transaminitis Secondary to cholecystitis Trended down after antibiotic treatment Discussed with the GI/general surgery when patient fully recovers from acute medical history at this time Subtance abuse hx amphetamine use addiction team when patient more coherent HIV Consider HAART treatment when more alert, likely Biktarvy EBV Seen evaluated by Infectious Disease, no need to treat at this time Microcytic anemia No sign of bleeding Follow H&H DVT prophylaxis with pneumatic compression boots Full code Quality Stroke Does the patient have a stroke diagnosis?: No VTE Prior VTE?: No VTE Risk Level:: Medical - moderate - high VTE Device Contraindication: N/A - Device Ordered VTE Drug Contraindication: Treatment Not Indicated
[2024-09-22 09:27] VITALS: BP 146/80; PULSE 111; RESP 16; TEMP 36.9; O2SAT 99
[2024-09-22] MEDS: LORazepam 0.5 MG TABLET PO (12:06)
[2024-09-22] MEDS: Artificial Tears 15 ML DROPS 1 DROP EYE-BOTH (12:13)
--- NOTE | 2024-09-22 12:38 | PC.NURSE ---
Pt off the unit for EEG
--- NOTE | 2024-09-22 14:32 | P.CNPS_ITS ---
History of Present Illness Date of Service: 09/22/24 Chief Complaint: acute cholecystitis Reason for Consult: Untreated schizophrenia Requesting physician: Anneliese Garcia Discussed with referring provider: Yes Sources of Information: patient interviewed and chart reviewed HPI Narrative: Pt is a 24-year-old male without any known significant PMH not on home medications who presents to the ED with abdominal pain that began suddenly after eating pizza. Pt admitted to the hospital for treatment and further evaluation of RUQ abdominal pain concerning for acute cholecystitis. During psychiatric assessment, patient presents alert and oriented x3. Anxious to be discharged but cooperative. Patient reports history of depression but states he never has thoughts of wanting to hurt himself . He denies SI/HI/VH/AH. Patient reports auditory and visual hallucinations while he is high on meth ; patient reports using crystal meth 3 times a week for the last 3 years. Patient reports history of going to [facility] for treatment; states he has providers through [facility] but is unable to recall names. denies taking psychiatric medications. He is currently taking Depakote while in the hospital and states he agrees to continue to keep taking this when discharged; patient reports he does not want to be taking any other medications and if he changes his mind will talk to his outpatient providers. Patient's mother was present during interview and reports patient was diagnosed with schizophrenia at the age of 14 but she is unclear why he was given this diagnoses; mother lives in [place] and occasionally talks to patient on the phone. Past Psychiatric History: mom from [place] reports hx of schizophrenia diagnosis; she reports he was diagnosed at the age of 14 but she is unclear as to why they gave him this diagnosis. Patient reports he has providers through [facility] but is unable to provide names. Medical Evaluation Reviewed: Yes [facility] Medical History HIV (human immunodeficiency virus infection) Family History: unknown Social History: lives alone. single. no kids. Substance History: Patient reports using methamphetamine 3 days a week for the past 3 years. U tox positive for amphetamines. Trauma History: no Diagnostics Vital Signs (24Hr): Vital Signs - 24 hr 09/21/24 15:42 09/21/24 19:21 09/22/24 03:35 Temperature 97.6 F 97.7 F 97.2 F Pulse Rate 111 H 95 108 H Respiratory Rate 18 16 16 Blood Pressure 144/93 H 139/88 138/89 Pulse Oximetry 100 100 100 Oxygen Delivery Method Room Air Room Air Room Air 09/22/24 09:27 Temperature 98.5 F Pulse Rate 111 H Respiratory Rate 16 Blood Pressure 146/80 H Pulse Oximetry 99 Oxygen Delivery Method Room Air BMI result Body Mass Index 25.3 Labs 09/20/24 06:40 09/22/24 05:42 Labs: Laboratory Results - last 48 hr 09/22/24 05:42 Sodium 139 Potassium 3.9 Chloride 107 Carbon Dioxide 26 Anion Gap 10 L BUN 11 Creatinine 0.72 Estim Creat Clear Calc 140.3 Estimated GFR > 60 Random Glucose 110 Calcium 9.4 Total Bilirubin 0.3 Direct Bilirubin 0.2 AST 20 ALT 61 H Alkaline Phosphatase 104 Total Protein 8.2 H Albumin 4.4 Imaging Radiology Impressions: ITS Impressions Abdomen/Pelvis CT 09/11/24 02:55 IMPRESSION: Retained stool. No evidence for bowel obstruction. Gallbladder appears to be mildly distended. Fleischner guidelines were followed. Electronically signed by: Neftali Elizondo MD 09/11/2024 04:37 AM EST RP Abdomen Ultrasound 09/11/24 07:42 IMPRESSION: 1. Choledocholithiasis secondary to a 3 mm calculus in the mid common duct. In retrospect, this can be seen on the coronal CT images (series 6, image 36), however is extremely subtle. Recommend correlation with MRCP for confirmation. 2. Distended gallbladder with layering sludge, small mobile gallstones, and a nonmobile small stones within the gallbladder neck. Negative sonographic East sign. There is mild wall thickening and edema measuring up to 5 mm. These findings are equivocal for acute cholecystitis, although patient's symptomatology and laboratory findings are most likely explained by the 3 mm common duct calculus. Electronically signed by: Rajeev Cardenas MD 09/11/2024 09:33 AM EST RP Mental Status Exam Mental Status Exam Patient Appearance: Appropriate Patient Orientation: Person, Place, Time and Situation Level of Consciousness: Awake and Alert Patient Behavior: Appropriate, Cooperative, Anxious and Good Eye Contact Mood Description: Anxious Affect Description: Appropriate Ability to Follow Directions: Good Speech Pattern: Clear and Appropriate Memory Description: Intact Hallucinations: None Delusions: Not Present Thought Process: Intact Thought Content: positive for Intact Judgement: Fair Medications Medications Current Medications Acetaminophen (Acetaminophen 325 Mg Tablet) 650 mg PO Q6H PRN PRN Reason: Pain, Mild 1-3,fever,headache Last Admin: 09/22/24 07:35 Dose: 650 mg Artificial Tears (Artificial Tears 15 Ml Drops) 1 drop EYE-BOTH Q4H PRN PRN Reason: Dry Eyes Last Admin: 09/22/24 12:13 Dose: 1 drop Calcium Carbonate (Calcium Carbonate 750 Mg Tab.Chew) 750 mg PO Q4H PRN PRN Reason: Heartburn Last Admin: 09/21/24 14:28 Dose: 750 mg Divalproex Sodium (Divalproex Sodium 500 Mg Tablet.Dr) 1,000 mg PO BID DEVON Last Admin: 09/22/24 08:04 Dose: 1,000 mg Valproic Acid 1,500 mg/ Sodium (Chloride) 115 mls @ 100 mls/hr IV ONCE DEVON Last Infusion: 09/20/24 15:00 Dose: Infused Lorazepam (Lorazepam 2 Mg/Ml Vial) 0.5 mg IVPUSH Q6H PRN PRN Reason: agitation Last Admin: 09/22/24 07:30 Dose: 0.5 mg Magnesium Hydroxide (Milk Of Magnesia 30 Ml Oral.Susp) 30 ml PO DAILY PRN PRN Reason: Constipation Melatonin (Melatonin 3 Mg Tablet) 6 mg PO BEDTIME PRN PRN Reason: Insomnia Last Admin: 09/21/24 20:45 Dose: 6 mg Nicotine Polacrilex (Nicotine Polacrilex 2 Mg Gum) 2 mg BUCCAL Q1H PRN PRN Reason: Nicotine Cravings Last Admin: 09/22/24 14:19 Dose: 2 mg Sodium Chloride (0.9 % Sodium Chloride Flush 3 Ml Syringe) 3 ml IVFLUSH QSHIFT [facility] Last Admin: 09/22/24 08:04 Dose: 3 ml Allergies Allergies Allergy/AdvReac Type Severity Reaction Status Date / Time No Known Allergies Allergy Verified 09/11/24 02:57 [No Known Allergies*] Assessment & Plan Assessment & Plan (1) Methamphetamine abuse: Status: Acute Code(s): F15.10 - Other stimulant abuse, uncomplicated Plan Recommendations: -encourage patient to follow up with outpatient psychiatric providers -encourage patient to maintain sobriety Total time managing care of this patient today _20___ minutes. Patient educated on: medication risk/benefits
--- NOTE | 2024-09-22 14:44 | PM.EVENT ---
Event Note Date of Service: 09/22/24 Event Note: Addiction consult placed for patient Patient not seen as he was discharging in police custody on [place] [address] petition Time Spent With Patient Time: Total time managing care of this patient today ____ minutes.
--- NOTE | 2024-09-22 14:45 | MHC.CM.PN ---
The patient has been medically cleared. [facility] not [facility]. He is discharged today no services ordered or required.
--- NOTE | 2024-09-22 14:55 | PC.NURSE ---
Pt okay for discharge to home .reviewed discharge paper with pt given RX for Depakote and pt instructed he needs to get RX filled and take a dose tonight at 2100. Iv was removed and pt was accepting of discharge to home . pt ambulated off unit accompanied by hospital staff and pts mother.
--- NOTE | 2024-09-22 15:00 | PM.DS ---
DS: Providers Provider Date of Service: 09/22/24 Date of admission: 09/11/24 12:57 Date of discharge: 09/22/24 Primary care physician: None Physician Consults: 09/14/24 09:10 Consult to Infectious Diseases Routine Consulting Provider: [facility] Reason for consultation: possible HIV with possible meningitis 09/20/24 07:11 Consult to Psychiatry Routine Consulting Provider: [facility] Reason for consultation: pseudoseizure, substance abuse 09/22/24 09:14 Consult to Care Team Routine Comment: Reason for consultation: medically clear 09/22/24 12:00 Addiction Medicine Routine Consulting Provider: [facility] Reason for consultation: subastance abuse 09/22/24 12:34 Consult to Psychiatry Routine Consulting Provider: [facility] Reason for consultation: Untreated schizophrenia DS: Diagnosis Discharge Diagnosis (1) Methamphetamine abuse: Status: Acute DS: Summary Hospital Course Hospital Course: History and physical as per admitting provider. Pt is a 24-year-old male without any known significant PMH not on home medications who presents to the ED with diffuse abdominal pain that began suddenly last night after eating pizza. Patient also complains of nausea, though it is unclear whether has experienced any vomiting. Patient has been noted to have experienced erratic behavior since arrival. Has been restless, agitated, anxious, screaming and yelling since admission. Security was initially called and found a white substance in patient's jacket, the patient denied illicit substance use and stated check it did not belong to him. Patient has also been confused not know a where he was or how he got here, with question of acute intoxication. Tox screen was positive for amphetamines. Patient's baseline mentation unknown. Overall it is very difficult to get a useful interview or exam from patient. Patient primarily complaining of RUQ abdominal pain and also wanting to eat and drink. In the ED pt was tachycardic up to 119 and hypertensive up to 155/94. Labs were significant for transaminitis of AST 717, ALT 486, and alk-phos 213. T bili WNL. No leukocytosis. Stable H&H. Renal function baseline. No significant electrolyte abnormalities. UA negative for UTI. Tox screen positive for amphetamines. CT of abdomen and pelvis found retained stool without evidence of bowel obstruction, and mildly distended gallbladder. RUQ ultrasound found choledocholithiasis secondary to 3 mm calculus in mid common duct. Also found distended gallbladder with layering sludge, small mobile gallstones, and small non mobile stone within gallbladder neck with negative East's sign. Pt was treated with famotidine, Mylanta, morphine ketorolac, lorazepam, and IVF. Pt will be admitted to the hospital for treatment and further evaluation of acute cholecystitis. HPI: 24-year-old male who presented to the emergency department with abdominal pain found to have cholecystitis. While he was in the emergency department he was found to have a white powdery substance he subsequently tested positive for amphetamines. He was admitted to the hospital with plans for cholecystectomy but due to altered mental status he was unable to consent for the procedure. Following that he began having seizures. Due to persistent seizures he was transferred to the intensive care unit on September 13 and intubated. He was started on Keppra. Per ICU attending family reports history of seizures in the past. LP negative for acute infection. MRI negative for acute changes. Was extubated September 17 and weaned off of Precedex drip. EBV was detected in the blood, per ID no further treatment indicated. Cholecystitis, treated conservatively with antibiotics. Also noted to be HIV positive which reportedly was known to the patient although not disclosed on admission. Seizure vs Pseudoseizures. patient initially had IV Keppra load but was stopped and Klonopin TID was continued. Patient continued to have seizure-like activity in the ICU and after being transferred. Normal LP results as well as normal head MRI. Discussed the case with Psychiatry as patient was having behavioral issues as well with recommendation to start Depakote. Depakote loaded with 1500 mg IV and then continued on 1000 mg twice daily. Patient had no further seizure activity for over 24 hours. Discussed with neurology who agreed Depakote would be fine. Patient to check liver function in 1 week. Symptoms could be a combination of untreated mental health disorder, drug use causing seizures. EEG completed and results still pending. Hx of untreated schizophrenia . according to mother dx at 15 . Seen by Psychiatry, recommended Depakote for seizure and mental health disorder. Treated with lorazepam as needed during hospitalization. Was seen and evaluated by psychiatric provider who felt patient did not need inpatient admission for psychiatric care. He was also seen by care team who also felt that patient did not need inpatient psychiatric treatment. No new psychiatric medications initiated. Acute cholecystitis. Completed 8 days of IV cefepime, no need for surgical intervention at this time, follow up with primary care provider for referral to general surgery if symptoms return. Transaminitis. Secondary to cholecystitis. Trended down after antibiotic treatment. Follow up with primary care provider if symptoms return Subtance abuse hx. Amphetamine use, [place] to police custody HIV patient to follow-up with primary care provider to set up outpatient treatment for HAART initiation EBV Seen evaluated by Infectious Disease, no need to treat at this time Microcytic anemia. No bleeding during hospitalization, stable H&H Time Attestation Discharge Coordination Time (in mins): 45 Quality: Safe Use of Opioids Does Pt have an Active Cancer Diagnosis on the Problem List?: No Quality: Stroke Does the patient have a stroke diagnosis?: No Physical Exam Vital Signs: Vital Signs: Last Vital Signs Temp 98.5 F 09/22/24 09:27 Pulse 111 H 09/22/24 09:27 Resp 16 09/22/24 09:27 BP 146/80 H 09/22/24 09:27 Pulse Ox 99 09/22/24 09:27 O2 Del Method Room Air 09/22/24 09:27 O2 Flow Rate 2 09/13/24 21:56 FiO2 21 09/17/24 12:00 BMI result Body Mass Index 25.3 Declined DS: Data Data Completed and Pending Labs on day of discharge: Laboratory Results - last 24 hr 09/22/24 05:42 Sodium 139 Potassium 3.9 Chloride 107 Carbon Dioxide 26 Anion Gap 10 L BUN 11 Creatinine 0.72 Estim Creat Clear Calc 140.3 Estimated GFR > 60 Random Glucose 110 Calcium 9.4 Total Bilirubin 0.3 Direct Bilirubin 0.2 AST 20 ALT 61 H Alkaline Phosphatase 104 Total Protein 8.2 H Albumin 4.4 Discharge Plan Discharge Anticipated Discharge Date/Time: 09/22/24 14:35 Patient Disposition: Home, Self-Care Discharge Diagnosis: Cholecystitis Seizure disorder Substance abuse Discharge Medications: New divalproex 500 mg Tablet,Delayed Release (Dr/Ec) 1,000 mg PO BID Qty: 120 0RF Discharge Orders: Discharge Order (Routine); Ordered 09/22/24 Ordered By: Anneliese Garcia Diet: Advance to usual diet Activity on Discharge: As tolerated Stand Alone Forms: Patient Portal Discharge page Print Language: Danish Other Ambulatory Orders: Liver Panel (Routine) Timeframe: 1 Week Facility: [facility] - Location: Laboratory Ordered By: Anneliese Garcia Care Plan Goals: Do not use street drugs Take Depakote as prescribed Do not drive or do activities alone that can put you in danger in light of seizures [place]charged on [place] Health Concerns: Cholecystitis Seizure disorder Substance abuse Plan of Treatment: Follow-up with primary care provider as needed Take all medications as prescribed Assessment: See discharge summary Discharge Date/Time: 09/22/24 14:59
== END 2024-09-22 14:59 | disposition home or self-care (01) | DRG 812 ==
LOC: HO.ED 13:05 → HO.EDOVER 13:07 → HO.S3 14:09 → HO.IMC 09-13 01:05 → HO.ICU 09-13 10:54 → HO.IMC 09-18 14:23 → HO.ICU 09-18 15:04 → HO.EDOVER 09-19 23:49 → HO.S3 09-20 00:46
PROVIDERS: Hospitalist; Internal Medicine; Internal Medicine Critical Care Medicine; Internal Medicine Pulmonary Disease; Physician Assistant Medical; Admitting Provider Student in an Organized Health Care Education/Training Program; Emergency Provider Emergency Medicine; Visit Provider Nurse Practitioner Acute Care
DX: T43.651A Poisoning by methamphetamines accidental (unintentional), initial encounter (principal); J96.00 Acute respiratory failure, unspecified whether with hypoxia or hypercapnia; R57.9 Shock, unspecified; G92.8 Other toxic encephalopathy; G93.41 Metabolic encephalopathy; K80.00 Calculus of gallbladder with acute cholecystitis without obstruction; F20.9 Schizophrenia, unspecified; F15.129 Other stimulant abuse with intoxication, unspecified; Z21 Asymptomatic human immunodeficiency virus [HIV] infection status; R56.9 Unspecified convulsions; E87.5 Hyperkalemia; Z76.5 Malingerer [conscious simulation]; D50.9 Iron deficiency anemia, unspecified; I95.2 Hypotension due to drugs; T42.75XA Adverse effect of unspecified antiepileptic and sedative-hypnotic drugs, initial encounter; Z91.148 Patient's other noncompliance with medication regimen for other reason
CPT/HCPCS: 36415; 70450; 70553; 71045; 74176; 76705; 80048; 80051; 80053; 80076; 80202; 80307; 81001; 82042; 82565; 82803; 82945; 82947; 83605; 83690; 83735; 84100; 84157; 85025; 85027; 86359; 86360; 86403; 86592; 86617; 86777; 86778; 87015; 87070; 87205; 87483; 87536; 87798; 89051; 93005; 94002; 94003; 94640; 94799; 95816; 99285; A9585; C1758; J0133; J0290; J0692; J0696; J1100; J1630; J1885; J1953; J2060; J2250; J2251; J2270; J2470; J2543; J2704; J3010; J3370; J3371; J7120; P9047

== ENCOUNTER → 2024-09-11 05:52 | Outpatient (BNV) | payer OTHER, SELFPAY | PROVIDERS: Emergency Provider Emergency Medicine; Visit Provider Radiology Diagnostic Radiology | DX: K80.41 Calculus of bile duct with cholecystitis, unspecified, with obstruction (principal) | CPT/HCPCS: 76705 ==

== ENCOUNTER 2024-09-11 12:57 | Outpatient (BNV) | payer OTHER, SELFPAY | END 2024-09-13 10:15 | PROVIDERS: Admitting Provider Student in an Organized Health Care Education/Training Program; Emergency Provider Emergency Medicine; Visit Provider Radiology Diagnostic Radiology | DX: J98.11 Atelectasis (principal); Z93.0 Tracheostomy status | CPT/HCPCS: 70450; 71045 ==

== ENCOUNTER 2024-09-11 12:57 | Outpatient (BNV) | payer OTHER, SELFPAY | END 2024-09-15 10:02 | PROVIDERS: Admitting Provider Student in an Organized Health Care Education/Training Program; Emergency Provider Emergency Medicine; Visit Provider Internal Medicine Cardiovascular Disease | DX: R00.1 Bradycardia, unspecified (principal) | CPT/HCPCS: 93010 ==

== ENCOUNTER 2024-09-11 12:57 | Outpatient (BNV) | payer OTHER, SELFPAY | END 2024-09-15 12:00 | PROVIDERS: Admitting Provider Student in an Organized Health Care Education/Training Program; Emergency Provider Emergency Medicine; Visit Provider Radiology Diagnostic Radiology | DX: R56.9 Unspecified convulsions (principal) | CPT/HCPCS: 70553 ==

== ENCOUNTER → 2024-09-11 12:57 | Outpatient (BNV) | payer OTHER, SELFPAY | PROVIDERS: Admitting Provider Student in an Organized Health Care Education/Training Program; Emergency Provider Emergency Medicine; Visit Provider Student in an Organized Health Care Education/Training Program | DX: R41.82 Altered mental status, unspecified (principal); K80.50 Calculus of bile duct without cholangitis or cholecystitis without obstruction | CPT/HCPCS: 99223; 99232; 99499 ==

== ENCOUNTER → 2024-09-11 12:57 | Outpatient (BNV) | payer OTHER, SELFPAY | PROVIDERS: Admitting Provider Student in an Organized Health Care Education/Training Program; Emergency Provider Emergency Medicine; Visit Provider Registered Nurse | DX: F15.10 Other stimulant abuse, uncomplicated (principal) | CPT/HCPCS: 99232 ==

== ENCOUNTER → 2024-09-11 12:57 | Outpatient (BNV) | payer OTHER, SELFPAY | PROVIDERS: Admitting Provider Student in an Organized Health Care Education/Training Program; Emergency Provider Emergency Medicine; Visit Provider Internal Medicine Critical Care Medicine | DX: B20 Human immunodeficiency virus [HIV] disease (principal); R74.01 Elevation of levels of liver transaminase levels; K81.0 Acute cholecystitis; R10.9 Unspecified abdominal pain; G93.40 Encephalopathy, unspecified | CPT/HCPCS: 99291 ==

== ENCOUNTER → 2024-09-11 12:57 | Outpatient (BNV) | payer OTHER, SELFPAY | PROVIDERS: Admitting Provider Student in an Organized Health Care Education/Training Program; Emergency Provider Emergency Medicine; Visit Provider Surgery | DX: R10.9 Unspecified abdominal pain (principal); R74.01 Elevation of levels of liver transaminase levels | CPT/HCPCS: 99222; 99232 ==

== ENCOUNTER → 2024-09-11 12:57 | Outpatient (BNV) | payer OTHER, SELFPAY | PROVIDERS: Admitting Provider Student in an Organized Health Care Education/Training Program; Emergency Provider Emergency Medicine; Visit Provider Internal Medicine Pulmonary Disease | DX: G93.40 Encephalopathy, unspecified (principal); K80.40 Calculus of bile duct with cholecystitis, unspecified, without obstruction; R56.9 Unspecified convulsions | CPT/HCPCS: 99291 ==

== ENCOUNTER → 2024-09-11 12:57 | Outpatient (BNV) | payer OTHER, SELFPAY | PROVIDERS: Admitting Provider Student in an Organized Health Care Education/Training Program; Emergency Provider Emergency Medicine; Visit Provider Internal Medicine | DX: B20 Human immunodeficiency virus [HIV] disease (principal); G93.40 Encephalopathy, unspecified; R56.9 Unspecified convulsions; K80.50 Calculus of bile duct without cholangitis or cholecystitis without obstruction | CPT/HCPCS: 99222 ==

== ENCOUNTER → 2024-09-11 12:57 | Outpatient (BNV) | payer OTHER, SELFPAY | PROVIDERS: Admitting Provider Student in an Organized Health Care Education/Training Program; Emergency Provider Emergency Medicine; Visit Provider Internal Medicine | DX: R41.82 Altered mental status, unspecified (principal); K80.40 Calculus of bile duct with cholecystitis, unspecified, without obstruction; R74.01 Elevation of levels of liver transaminase levels | CPT/HCPCS: 99223; 99499 ==

== ENCOUNTER → 2024-09-11 12:57 | Outpatient (BNV) | payer OTHER, SELFPAY | PROVIDERS: Admitting Provider Student in an Organized Health Care Education/Training Program; Emergency Provider Emergency Medicine; Visit Provider Psychiatry & Neurology Neurology | DX: R56.9 Unspecified convulsions (principal) | CPT/HCPCS: 99222 ==

== ENCOUNTER 2024-10-23 14:05 | Emergency (ER) | payer OTHER, SELFPAY ==
--- NOTE | 2024-10-23 14:11 | ED_ITS ---
HPI - General Adult General Chief complaint: Nausea/Vomiting/Diarrhea Stated complaint: N/V PER EMS Time Seen by Provider: 10/23/24 14:10 Source: patient, EMS, RN notes reviewed and old records reviewed Mode of arrival: EMS Limitations: no limitations History of Present Illness ED Provider: Katherine HPI narrative: Patient is a 24-year-old male with history of HIV, methamphetamine use, discharged from this hospital on 09/22/24 on depakote presenting to the ED with complaint of nausea and vomiting and generalized abdominal pain. States that his symptoms began after eating [place] food yesterday. States that he at the food both fresh, as well as leftovers some cold and some reheated. Denies fevers. States nausea has subsided at this time, asking for ice chips. Emesis nonbloody, nonbilious. States he has not been taking his prescribed depakote as he did not like the side effects. Denies any seizures since hospital discharge on 09/22. MD complaint: abdominal pain, nausea, vomiting Onset (ago): hour(s) Location: abdomen Treatments prior to arrival: none Related Data Previous Rx's ?Medication ?Instructions ?Recorded divalproex 500 mg tablet,delayed 1,000 mg (2 x 500 mg) PO BID #120 09/22/24 release tabs ondansetron 4 mg disintegrating 4 mg PO Q8H PRN nausea and 10/23/24 tablet vomiting #10 tabs Allergies Allergy/AdvReac Type Severity Reaction Status Date / Time No Known Allergies Allergy Verified 10/23/24 14:24 [No Known Allergies*] Review of Systems 2 Review of Systems: As per HPI Yes all other systems are reviewed and are negative Constitutional: Constitutional: Reports as per HPI REPLACED BY [facility] Past Medical History Medical History HIV (human immunodeficiency virus infection) Social History Social History Household Members: None Household Members Other:: sister assisted in answering questions as patient is sleepy Housing: Apartment Do you presently have visiting nurse or other home services: No Alcohol intake: never Comment: 1:1 Patient Tobacco Use Status: Never used Tobacco Substance Use Type: Amphetamines and Methamphetamine Advance Directives: No Advance Directives Information Provided: Yes Do you have a plan to hurt others: No Plan Physical Exam ED Vital Signs: Vital Signs - 24 hr 10/23/24 15:46 Temperature 98.0 F Pulse Rate 104 H Respiratory Rate 18 Blood Pressure 125/78 Pulse Oximetry 99 Oxygen Delivery Method Room Air BMI result Body Mass Index 25.8 Const General: cooperative, healthy appearing and no acute distress Orientation/consciousness: oriented to person, oriented to place, oriented to time and patient oriented x3 Limitations: no limitations HENMT Head: Yes normocephalic and Yes atraumatic Ears: external ears normal General nose exam: Normal external nose present Face and sinus: Yes face symmetric Mouth: oropharynx normal and moist mucous membranes Throat: Yes uvula midline Eyes Pupils: Equal, round and reactive pupils present Neck Neck: Yes normal visual inspection and Yes supple Resp Effort & Inspection: normal respiratory effort and able to speak in complete sentences Auscultation: clear to auscultation bilaterally Cardio Rate: regular rate Rhythm: regular rhythm Heart sounds: S1 normal heart sound present and S2 normal heart sound present GI Palpation (GI): Soft to palpation and nontender Auscultation: normoactive bowel sounds General: Yes no CVA tenderness Back/Spine/Pelvis Back: no CVA tenderness Skin General skin exam: elasticity normal and turgor normal Neuro General: oriented to person, oriented to place, oriented to time, patient oriented x3, moves all extremities, no focal motor deficits and CN's II-XI intact bilaterally Cranial nerves: Yes Equal, round and reactive pupils present Cognition (Neuro): normal cognition Extrem General: Yes full ROM, Yes no pedal edema and Yes no calf tenderness Psych Mental Status: mental status grossly normal Speech and movement: Pressured speech present Affect: normal affect Thought process: Normal thought process present Course Course Course Narrative: 4:00 p.m. receive sign-out with the patient in stable condition. Patient has tolerated food while in the emergency department with any additional nausea or vomiting. Labs are pending at this time. Of note, patient had abdominal ultrasound at the end of August demonstrated choledocholithiasis. 5:30 p.m. reviewed labs, no acute process. Patient has tolerated addition of food while in the emergency department without any nausea or vomiting or diarrhea. He is hemodynamically stable and feels comfortable with discharge plan home. Reassessment patient's abdomen is soft without tenderness. Patient expresses understanding of all discharge instructions and has no further questions at this time. Medical Decision Making Medical Decision Making [facility] Narrative: Patient is a 24-year-old male with history of HIV, methamphetamine use, discharged from this hospital on 09/22/24 on depakote presenting to the ED with complaint of nausea and vomiting and generalized abdominal pain. On exam patient is awake, A+Ox3, VS WNL, afebrile, normal neurological exam without focal deficits, physical exam findings as above. Given reported symptoms and physical exam findings, initial differential includes but is not limited to viral illness, Covid, flu, gastroenteritis, electrolyte abnormality. Patient tolerating PO fluids on arrival to ED. Patient signed out to ELIZA Weiss pending labs. Assuming these are normal, patient can be discharged home with prescription for zofran, follow up with PCP. Differential Diagnosis Differential Diagnoses: The differential diagnosis associated with the presentation includes As per [facility] Admission/Observation Consideration of admission/observation: Escalation of care including admission/observation considered Patient would have been admitted to the hospital had their work up had any findings where hospital admission was appropriate and their clinical presentation warranted hospital admission. Lab Data 10/23/24 16:45 10/23/24 16:45 Labs: Lab Results 10/23/24 Range/Units 16:45 WBC 9.4 (4.8-10.8) X10*3/uL RBC 5.86 H D (4.60-5.80) X10*6/uL Hgb 14.2 (14.0-18.0) g/dl Hct 44.9 D (42.0-52.0) % MCV 76.6 L (80.0-98.0) fL MCH 24.2 L (27.0-33.0) pg MCHC 31.6 (31.0-36.0) g/dl RDW 19.4 H (11.0-16.0) % Plt Count 298 (160-400) X10*3/uL MPV 8.8 L (9.4-12.4) fL Immature Gran % (Auto) 0.6 H (0.0-0.4) % Neut % (Auto) 79.3 H (45-73) % Lymph % (Auto) 13.1 L (20-40) % Calloway % (Auto) 5.1 (2-11) % Eos % (Auto) 1.8 (0-4) % Baso % (Auto) 0.1 (0-2) % Lymph # (Auto) 1.2 (1.2-4.9) X10*3/uL Calloway # (Auto) 0.5 (0.1-1.2) X10*3/uL Eos # (Auto) 0.2 (0.0-0.4) X10*3/uL Baso # (Auto) 0.0 (0.0-0.2) X10*3/uL Abs Immat Gran (auto) 0.06 H (0.00-0.03) X10*3/uL Absolute Neuts (auto) 7.4 (2.0-8.3) x10*3/uL Absolute Nucleated RBC 0.000 (0.0-0.012) X10*3/uL Nucleated RBC % (auto) 0.0 (0.0-0.2) /100WBC Sodium 139 (135-145) mmol/L Potassium 4.5 (3.3-5.1) mmol/L Chloride 108 (96-108) mmol/L Carbon Dioxide 21 L (22-29) mmol/L Anion Gap 15 (12-20) BUN 13 (9-16) mg/dL Creatinine 0.64 (0.5-1.4) mg/dL Estim Creat Clear Calc 163.5 Estimated GFR > 60 Random Glucose 91 (60-115) mg/dL Calcium 9.1 (8.4-10.2) mg/dL Magnesium 2.2 (1.6-2.6) mg/dL Total Bilirubin 0.6 (0.0-1.0) mg/dL AST 29 (5-37) U/L ALT 27 (0-40) U/L Alkaline Phosphatase 84 (39-117) U/L Total Protein 8.2 H (6.5-8.0) g/dL Albumin 4.3 (3.5-5.0) g/dL External Record Review External record reviewed: Inpatient record, Office record and Outpatient record Prescription Management I considered prescription management with: Other Discharge Plan Discharge Clinical Impression: Nausea & vomiting Patient Disposition: Still a Patient Instructions: Acute Nausea and Vomiting (ED) Additional Instructions: You were evaluated in the emergency department today for epigastric pain, nausea and vomiting which is most likely due to irritation of the lining of your stomach. Your symptoms resolved prior to arrival to the ED and you were able to tolerate fluids by mouth. You are being prescribed ondansetron which you can use every 8 hours for nausea. You can also use Mylanta, which is available over the counter, to help manage your symptoms. Avoid spicy, greasy or acidic foods. Please follow up with your primary care physician within two days. Return to the emergency department if you experience shortness of breath, worsening or uncontrolled abdominal pain, chest pain, light headedness, faiting, persistent nausea and vomiting, bloody vomit or stools, black, tarry stools, or any other concerning symptoms. Prescriptions: New ondansetron 4 mg tablet,disintegrating 4 mg PO Q8H PRN (Reason: nausea and vomiting) Qty: 10 0RF No Action divalproex 500 mg Tablet,Delayed Release (Dr/Ec) 1,000 mg PO BID Qty: 120 0RF Print Language: Faroese
[2024-10-23 14:23] VITALS: BP 130/87; PULSE 110; O2SAT 100; BMI 25.8
--- OUTSIDE RECORDS SUMMARY | 2024-10-23 14:47 | XMS_ITS | Clinical Summary ---
Author Organization Formerly [facility] Address [address] [place] [address] Care Team Providers Care Orthopedic Technician Name Role Phone Provider, Conversion MD Primary Care Provider Un available Allergies No known active allergies Medications Medication Sig Dispensed Refills Start Date End Date Status bictegravir-emtricitab ine-tenofovir (BIKTARVY) 50-200-25 mg tablet Take 1 tablet by mouth daily. Active MELATONIN PO Take 10 mg by mouth nightly. Active doxycycline (DORYX) 100 MG EC tablet Take 100 mg by mouth 2 (two) times a day. 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 Rectal bleeding 11/17/2021 Overview (11/17/2021): Added automatically from request for surgery [id number] GI bleed 11/17/2021 Social History Tobacco Use Types Packs/Day Years Used Date Smoking Tobacco: Never Assessed Sex and Gender Information Value Date Recorded Sex Assigned at Not on file Gender Identity Not on file Sexual Orientation Not on file Last Filed Vital Signs Vital Sign Reading Time Taken Comments Blood Pressure 130/78 11/25/2021 8:12 AM EST Pulse 110 11/25/2021 8:12 AM EST Temperature 37.1 ??C (98.7 ??F) 11/25/2021 8:12 AM ES T Respiratory Rate 18 11/25/2021 8:12 AM EST Oxygen Saturation 100% 11/25/2021 8:12 AM EST Inhaled Oxygen Concentration - - Weight 70.3 kg (154 lb 15.7 oz) 11/17/2021 6:12 PM EST Height - - Body Mass Index - - Plan of Treatment Health Maintenance Due Date Last Done Comments Hepatitis C Virus Screening 1998 COVID-19 Vaccine (#1) 2003 HPV Vaccines (1 - Risk male 3-dose series) 2009 DTaP/Tdap/Td Vaccines (1 - Tdap) 2017 Hepatitis B Vaccines (1 of 3 - 19+ 3-dose series) 2017 Pneumococcal Vaccine: Pediat ann (0-5 Years) and At-Risk Patients (6 to 49 Years) (1 of 2 - PCV) 2017 Influenza Vaccine 04/16/2024 11/19/2018, , 06/12/2016, Additional history exists HIV Screening Completed 11/18/2021 Medical Devices Implanted Type Area Home Health Lvn Device Identifier Shelf Expiration Date Model / Serial / Lot Resolution Ultra Clip Implanted:Qty: 2 on 11/19/2021 by Abril Machado MD at [facility] [employer] [id number] / / Description:Not an implant. Charging purposes only. Abbie Procedures Procedure Name Priority Date/Time Associated Diagnosis Comments HIV-1 RNA VIRAL LOAD, QUANTITATIVE Routine 11/18/2021 12:15 PM EST from Last 3 Months or Most Recently Relevant to Health Maintenance Results * (ABNORMAL) HIV-1 RNA Viral Load, Quantitative (11/18/2021 12:15 PM EST) HIV-1 RNA (copies/mL) 291,728(H) <30 copies/mL 11/23/2021 2:59 PM EST [facility] HIV-1 RNA (log10) 5.46(H) <1.46 log copies/mL 11/23/2021 2:59 PM EST [facility] Interpretation Detected 11/23/2021 2:59 PM EST [facility] Comment:Performed by FDA elham roved [email or web address] Aptima TMA. Linear range is 30 to 10,000,000 copies/mL. HIV Genotyping is not recommended for viral loads below 2,000 copies/mL. Not FDA approved to diagnose HIV infection. Blood specimen (specimen) Plasma specimen / Unknown 11/18/2021 12:15 PM EST 11/18/2021 12:55 PM EST Shani Blankenship MD [facility] [address] [place] [address] from Last 3 Months or Most Recently Relevant to Health Maintenance Advance Directives * Full Code (Latest Code Status on File) Date Activated Date Inactivated Comments 11/17/2021 12:47 PM Healthcare Agents on File Name Relationship Healthcare Agent Relationship Communication Divya Cramer Adult sibling 4. Next of Kin (Spouse, Adult Child, Parent, Adult Sibling, Grandparent) Care Teams Orthopedic Technician Relationship Specialty Start Date End Date ProviderDivya MD PCP - General 11/17/21
--- OUTSIDE RECORDS SUMMARY | 2024-10-23 14:47 | XMS_ITS | Encounter Summary ---
Author Organization [facility] Address [address] [place] [address] Care Team Providers Care Product Strategy Director Name Role Phone Real Hightower MD Primary Care Provider [phone] Encounter Details Date Type Department Care Team Description 06/30/2024 Orders Only Medical Records [address] [place] [address] Keenan Colbert Social History Tobacco Use Types Packs/Day Years Used Date Smoking Tobacco: Never Smokeless Tobacco: Never Comments:smokes Marijuana no card Alcohol Use Standard Drinks/Week Comments Yes 0 (1 standard drink = 0.6 oz pur e alcohol) occ- holidays Sex Assigned at Date Recorded Not on file Job Start Date Occupation Industry Not on file Not on file Not on file documented as of this encounter Plan of Treatment Not on file documented as of this encounter Procedures Procedure Name Priority Date/Time Associated Diagnosis Comments OUTSIDE VASCULAR STUDY Routine 06/29/2024 documented in this encounter Results * OUTSIDE VASCULAR STUDY (06/29/2024) Keenan Colbert CARDIOLOGY documented in this encounter Visit Diagnoses Not on filedocumented in this encounter Care Teams Product Strategy Director Relationship Specialty Start Date End Date Real Hightower MD PCP - General Internal Medicine 02/22/23 documented as of this encounter
--- OUTSIDE RECORDS SUMMARY | 2024-10-23 14:47 | XMS_ITS | Clinical Summary ---
Author Organization [facility] Address [address] [facility] [address] [place] [address] Care Team Providers Care Interior Horticulturist Name Role Phone Unavailable Primary Care Provider Unavailabl e Social History Tobacco Use Types Packs/Day Years Used Date Smoking Tobacco: Never Assessed Sex and Gender Information Value Date Recorded Sex Assigned at Male 07/16/2022 10:35 AM EDT Legal Sex Male 10:35 AM EDT Gender Identity Male 07/16/2022 10:35 AM EDT Sexual Orientation Something else 07/16/2022 10 :35 AM EDT Plan of Treatment Health Maintenance Due Date Last Done Comments Depression Screening 1998 Alcohol/Substance Use Screening 2010 Tobacco Screening 2010 Family Planning (PISQ) 2013 HPV Vaccines (1 - Male 3-dos e series) 2013 DTaP/Tdap/Td Vaccines (1 - Tdap) 2017 Hepatitis B Vaccines (1 of 3 - 19+ 3-dose series) 2017 COVID-19 Vaccine (1 - 2023-2 5 season) 2024 Influenza Vaccine (#1) 2024 Zoster Vaccines (1 of 2) 2048 RSV Patients and Pa tients Aged 60 years or older (1 - 1-dose 75+ series) 2073 HIB Vaccines Aged Out No longer eligi ble based on patient's age to complete this topic Hepatitis A Vaccines Aged Out No long er eligible based on patient's age to complete this topic IPV Vaccines Aged Out No longer eligi ble based on patient's age to complete this topic Meningococcal Vaccine Aged Out No natali enrique eligible based on patient's age to complete this topic Pneumococcal Vaccine: Pediat rics (0 to 5 Years) and At-Risk Patients (6 to 49) Years) Aged Out No longer eligible b ased on patient's age to complete this topic RSV under 20 months Aged Out No longe r eligible based on patient's age to complete this topic Rotavirus Vaccines Aged Out No longer eligible based on patient's age to complete this topic
--- OUTSIDE RECORDS SUMMARY | 2024-10-23 14:47 | XMS_ITS | Encounter Summary ---
Author Organization [facility] Address [address] [place] [address] Care Team Providers Care Manager Transition Name Role Phone Real Hightower MD Primary Care Provider [phone] Reason for Visit * Reason Onset Date Comments Campbell:Medication 10/14/2024 Encounter Details Date Type Department Care Team ([facility] st Contact Info) Description 10/14/2024 Telephone Internal Medicine - [place] [address] [facility] [address] [place] [id number] Real Hightower MD 175 [facility] [address] [place] [address] Campbell:Medication Social History Tobacco Use Types Packs/Day Years Used Date Smoking Tobacco: Never Smokeless Tobacco: Never Alcohol Use Standard Drinks/Week Comments Yes 0 (1 standard drink = 0.6 oz pur e alcohol) Sex and Gender Information Value Date Recorded Sex Assigned at Not on file Gender Identity Not on file Sexual Orientation Not on file Job Start Date Occupation Industry Not on file Not on file Not on file documented as of this encounter Progress Notes * Ministerio Gilmore MA - 10/15/2024 1:09 PM EST Left vm for pt to call office back. * Real Hightower MD - 10/15/2024 11:36 AM EST This is a seizure medicine he should get from the specialist either neurologist or psychiatrist. * Ministerio Gilmore MA - 10/15/2024 10:27 AM EST Please advise * Lucero Correia - 10/15/2024 9:51 AM EST Patient called and stated that the medication is a Anti seizures medication divalproex 500mg and hewould like the dose lowered because he feel like he can't function when taking it. Please advise Cb# [phone] (allowed to leave voice mail) * Syl Phillips MA - 10/14/2024 1:20 PM EST Called pt to ask which medication, n/a. Lvm to call back. If pt calls back please ask them which medicine. Thank you * Lucero Correia - 10/14/2024 11:45 AM EST Patient called and requested a call back to discuss a medication that was given to him in the hospital because he would like a different dose. Please advise Cb# [phone] documented in this encounter Plan of Treatment Upcoming Encounters Date Type Department Care Team (Late st Contact Info) Description 10/27/2024 3:00 PM EST Consult General Surgery - [place] [address] [facility] [address] [place] [phone] Arpan Krause MD 175 [facility] [address] [place] [address] 10/29/2024 11:00 AM EST Office Visit Internal Medicine - [place] [address] [facility] [address] [place] [phone] Real Hightower MD [address] [address] documented as of this encounter Visit Diagnoses Not on filedocumented in this encounter Care Teams Manager Transition Relationship Specialty Start Date End Date Real Hightower MD [address] [address] PCP - General 02/22/23 documented as of this encounter
--- OUTSIDE RECORDS SUMMARY | 2024-10-23 14:47 | XMS_ITS | Clinical Summary ---
Author Organization [facility] Address [address] [place] [address] Phone Care Team Providers Care Migratory Worker Name Role Phone Real Hightower MD Primary Care Provider [phone] Allergies No known active allergies Medications Medication Sig Dispensed Refills Start Date End Date Status acetaminophen (TYLENOL) 500 mg tablet Take 2 tablets (1,000 mg total) by mouth every 6 (six) hours if needed. 02/20/2024 Active Symtuza [phone] mg per tablet Take 1 tablet by mouth 1 (one) time each day. with food Active Banophen 25 mg capsule Take 2 capsules (50 mg total) by mouth 3 (three) times a day if needed for itching or allergies. 05/30/2024 Active mirtazapine (REMERON) 15 mg tablet Take 1 tablet (15 mg total) by mouth 1 (one) time each day. 07/18/2024 Active melatonin 10 mg tablet Take 1 tablet (10 mg total) by mouth at bedtime as needed for sleep. 30 tablet 3 09/25/2024 Active meloxicam (Mobic) 7.5 mg tablet Take 1 tablet (7.5 mg total) by mouth 1 (one) time each day if needed for moderate pain. 30 each 1 10/08/2024 10/08/2025 Active melatonin 10 mg tablet Take 1 capsule by mouth at bedtime as needed for sleep. 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 PTSD (post-traumatic stress disorder) 11/24/2021 Schizophrenia 11/24/2021 GI bleed 11/17/2021 Rectal bleeding 11/17/2021 Overview (09/24/2024): Added automatically from request for surgery [id number] HIV (human immunodeficiency virus infection) Marijuana use 11/05/2017 Depression Overview (07/21/2024): DX:Depression Marijuana use Overview (07/21/2024): DX:Marijuana use Immune deficiency disorder Encounters Date Type Department Care Team Description 10/23/2024 Telephone Internal Medicine [address] [address] Real Hightower MD Abdominal Pain 10/14/2024 Telephone Internal Medicine [address] [address] Real Hightower MD Joseph:Medication 10/06/2024 Telephone Internal Medicine [address] [address] Real Hightower MD Campbell - Letter 09/28/2024 10:30 AM EST Office Visit Internal Medicine [address] [address] Real Hightower MD Hospital discharge follow-up (Primary Dx); Seizures (CMS/HCC); Gall stones; PTSD (post-traumatic stress disorder); Vision changes 09/28/2024 Telephone Internal Medicine [address] [address] Real Hightower MD PT-1 09/25/2024 4:53 PM EST - 09/25/2024 9:25 PM EST Emergency [facility] Emergency [address] [place] [address] Discharge Disposition: Home or Self Care 09/24/2024 Telephone Internal Medicine - [address] [place] [address] Real Hightower MD Hospital Follow-up (Seizures [facility] 09/10-09/22/24 ) from Last 3 Months Immunizations Name Administration Dates Next Due HPV 9-valent (Gardisil) 9yo to less than 46yo HPV, Quadrivalent 11/19/2018 Hep A, Unspecified 09/25/2018 Hepatitis A Pediatric (Havri x; Vaqta) 12mo to less than 19yo 11/11/2015 Influenza Quadravalent, MDCK , 0.5ml, preservative free (Flucelvax) 6mo and older 08/13/2018 Influenza Quadrivalent, with preservative (Fluzone; Afluria) 6mo and older 06/12/2016,06/22/2015 Influenza trivalent, with pr eservative (Fluzone; Afluria) 6mo and older 11/19/2018 Meningococcal MCV4P 11/11/2015 Pneumococcal conjugate 13 va lent (Prevnar 13, PCV13) 2mo and older 11/19/2018 Tdap Tetanus diptheria acell ular pertussis (Boostrix; Adacel) 7yo and older 11/19/2018,08/13/2018 Surgical History Surgery Date Site/Laterality Comments OTHER SURGICAL HISTORY PROCEDURE: DENIES PREVIOUS SURGERY Medical History Medical History Date Comments Marijuana use 11/05/2017 DX:Marijuana use Depression DX:Depression Seizures (CMS/HCC) Family History Medical History Relation Name Comments Diabetes Father Hypertension Father Bipolar disorder Mother Diabetes Mother Hypertension Mother Diabetes Sister Diabetes Uncle Hypertension Uncle Relation Name Status Comments Father Alive Mother Alive Sister Alive Uncle Social History Tobacco Use Types Packs/Day Years [...] file Not on file Not on file Obstetrics History Last Filed Vital Signs Vital Sign Reading Time Taken Comments Blood Pressure 120/80 09/28/2024 11:03 AM EST Pulse 102 09/28/2024 11:03 AM EST Temperature 36 ??C (96.8 ??F) 09/28/2024 11:03 AM EST Respiratory Rate 20 07/21/2024 10:06 PM EST Oxygen Saturation 99% 09/28/2024 11:03 AM EST Inhaled Oxygen Concentration - - Weight 71.8 kg (158 lb 3.2 oz) 09/28/2024 11:03 AM EST Height 168 cm (5' 6.14 ) 07/21/2024 10:06 PM EST Body Mass Index 25.42 07/21/2024 10:06 PM EST Plan of Treatment Upcoming Encounters Date Type Department Care Team (Late st Contact Info) Description 10/27/2024 3:00 PM EST Consult General Surgery - [place] 175 [facility] [address] [place] [phone] Arpan Krause MD 175 [facility] [address] [place] [address] 10/29/2024 11:00 AM EST Office Visit Internal Medicine - [place] 175 [facility] [address] [place] [address] Real Hightower MD 175 [facility] [address] [place] [address] Health Maintenance Due Date Last Done Comments COVID-19 Vaccine (#1) 2003 Meningococcal ACWY Vaccine (2 - Risk 2-dose series) 01/06/2016 11/11/2015 MMR Vaccines (1 of 2 - Risk 2-dose series) 2016 Hepatitis B Vaccines (1 of 3 - 19+ 3-dose series) 2017 Pneumococcal Vaccine: Pediatrics (0 to 5 Years) and At-Risk Patients (6 to 64 Years) (2 of 2 - PPSV23 or PCV20) 01/14/2019 11/19/2018 Depression Screening 08/20/2021 Social Influencers of Health Screening 08/20/2021 Influenza Vaccine (#1) 2024 9, 08/13/2018, 06/12/2016, Additional history exists HPV Vaccines (3 - Risk male 3-dose series) 08/16/2024 04/16/2024, 11/19/2018 DTaP,Tdap,and Td Vaccines (3 - Td or Tdap) 11/19/2028 11/19/2018, 08/13/2018 Hepatitis A Vaccines Completed 09/25/2018, 11/11/19 16 Hepatitis C Screening Completed 09/25/2018 HIB Vaccines Aged Out No longer eligi ble based on patient's age to complete this topic IPV Vaccines Aged Out No longer eligi ble based on patient's age to complete this topic RSV Immunization Patients Under 20 months Aged Out No longer eligible based on patient's age to complete this topic Varicella Vaccines Aged Out No longer eligible based on patient's age to complete this topic Procedures Procedure Name Priority Date/Time Associated Diagnosis Comments HEPATITIS C SCREENING Routine 09/25/2018 from Last 3 Months or Most Recently Relevant to Health Maintenance Results * Hepatitis C Screening (09/25/2018) Hepatitis C Screening abstracted Historical Provider MD KENZIE Garvin from Last 3 Months or Most Recently Relevant to Health Maintenance Care Teams Migratory Worker Relationship Specialty Start Date End Date Real Hightower MD 175 [facility] [address] [place] [address] PCP - General 02/22/23
--- OUTSIDE RECORDS SUMMARY | 2024-10-23 14:47 | XMS_ITS | Encounter Summary ---
Author Organization [facility] Address [address] [place] [address] Care Team Providers Care Inspector Repairer Name Role Phone Real Hightower MD Primary Care Provider [phone] Reason for Visit * Reason Onset Date Comments Abdominal Pain 10/23/2024 Encounter Details Date Type Department Care Team ([facility] st Contact Info) Description 10/23/2024 Telephone Internal Medicine - [place] 175 [facility] [address] [place] [phone] Real Hightower MD 175 [facility] [address] [address] [place], [place] [phone] Abdominal Pain Social History Tobacco Use Types Packs/Day Years [...] as of this encounter Progress Notes * Yuly Bass RN - 10/23/2024 11:40 AM EST Call to pt # [phone], spoke to pt Pt difficult to understand. Reports he abdomin is swollen and he is in a lot of pain. Advised pt tocall an ambulance. He didn't want to at first but advised him he needed to be seen GARCIA if he hasn't been able to use the bathroom and he is distended. Pt agreed to call. * Belinda Sands Arriaga - 10/23/2024 11:33 AM EST Difficulty understanding patient States he is in a great deal of pain Abdomin distended - cannot get up. Unable to go to the bathroom due to pain I did see he has an upcoming appt Gallstones It was difficult to understand him at times documented in this encounter Plan of Treatment Upcoming Encounters Date Type Department Care Team (Late st Contact Info) Description 10/27/2024 3:00 PM EST Consult General Surgery - [place] 175 [facility] [address] [place] [address] Arpan Krause MD 175 [facility] [address] [place] [address] 10/29/2024 11:00 AM EST Office Visit Internal Medicine - [place] 175 [facility] [address] [place] [address] Real Hightower MD [address] [address] documented as of this encounter Visit Diagnoses Not on filedocumented in this encounter Care Teams Inspector Repairer Relationship Specialty Start Date End Date Real Hightower MD 175 [facility] [address] [place] [address] PCP - General 02/22/23 documented as of this encounter
--- OUTSIDE RECORDS SUMMARY | 2024-10-23 14:47 | XMS_ITS | Clinical Summary ---
Author Organization [facility] Address [address] [place] [address] Care Team Providers Care Furnace Installer Name Role Phone Real Hightower MD Primary Care Provider [phone] Allergies No known active allergies Medications No known medications Active Problems Problem Noted Date HIV (human immunodeficiency virus infect ion) 10/08/2018 Marijuana use 11/05/2017 Depression Immunizations Name Administration Dates Next Due Egvbfgsed-Y-Texqm-Positive + 09/25/2018 Influenza Vaccine-preservati ve Free-quadrivalent 4 Years 08/13/2018 Tdap 08/13/2018 Family History Medical History Relation Name Comments Diabetes Father Hypertension Father Bipolar Disorder Mother Diabetes Mother Hypertension Mother Diabetes Sister Diabetes Uncle Hypertension Uncle Relation Name Status Comments Father Alive Mother Alive Sister Alive Uncle Social History Tobacco Use Types Packs/Day Years Used Date Smoking Tobacco: Never Smokeless Tobacco: Never Tobacco Cessation:Counseling Given: Not Answered Comments:smokes Marijuana no card Alcohol Use Standard Drinks/Week Comments Yes 0 (1 standard drink = 0.6 oz pur e alcohol) occ- holidays Sex Assigned at Date Recorded Not on file Job Start Date Occupation Industry Not on file Not on file Not on file Last Filed Vital Signs Vital Sign Reading Time Taken Comments Blood Pressure 130/80 05/08/2023 11:05 AM EDT Pulse 95 05/08/2023 11:05 AM EDT Temperature 36.2 ??C (97.2 ??F) 05/08/2023 11:05 AM E DT Respiratory Rate 12 09/25/2018 11:54 AM EST Oxygen Saturation 91% 05/08/2023 11:05 AM EDT Inhaled Oxygen Concentration - - Weight 69.9 kg (154 lb 3.2 oz) 05/08/2023 11:05 AM EDT Height 175.3 cm (5' 9 ) 05/08/2023 11:05 AM EDT Body Mass Index 22.77 05/08/2023 11:05 AM EDT Plan of Treatment Health Maintenance Due Date Last Done Comments Covid-19 Vaccine (#1) 1998 CHOLESTEROL SCREENING 02/11/2023 02/11/2018 BASELINE HEALTH EXAM 18-39 08/13/202308/13, 08/13/2018, 08/13/2018 INFLUENZA (#1) 2024 08/13/2018, 08/13/2018 DEPRESSION SCREENING/FOLLOWUP 09/16/2024, 08/13/2018, 08/13/2018 SOCIAL NEEDS SCREENING 09/16/2024 DTAP/TDAP/TD (2 - Td or Tdap) 08/13/2028 08/13/2018, 08/13/2018 PNEUMOCOCCAL VACCINE FOR HIG H RISK PATIENTS (#1) 2063 Care Teams Furnace Installer Relationship Specialty Start Date End Date Real Hightower MD PCP - General Internal Medicine 02/22/23
--- OUTSIDE RECORDS SUMMARY | 2024-10-23 14:47 | XMS_ITS | Encounter Summary ---
Author Organization [facility] Address [address] [place] [address] Care Team Providers Care 2Nd Grade Teacher Name Role Phone Unavailable Primary Care Provider Unavailabl e Encounter Details Date Type Department Care Team (Latest Contact Info) Description 04/02/2019 Abstract [facility] CONVERSIONS Dental, Provider, DDS Social History Tobacco Use Types Packs/Day Years Used Date Smoking Tobacco: Never Assessed Sex and Gender Information Value Date Recorded Sex Assigned at Male 07/16/2022 10:35 AM EDT Legal Sex Male 10:35 AM EDT Gender Identity Male 07/16/2022 10:35 AM EDT Sexual Orientation Something else 07/16/2022 10 :35 AM EDT documented as of this encounter Plan of Treatment Not on file documented as of this encounter Visit Diagnoses Not on filedocumented in this encounter
--- OUTSIDE RECORDS SUMMARY | 2024-10-23 14:47 | XMS_ITS | Encounter Summary ---
Author Organization [facility] Address [address] [place] [address] Care Team Providers Care Guide Changer Name Role Phone Real Hightower MD Primary Care Provider [phone] Encounter Details Date Type Department Care Team Description 06/29/2024 Orders Only Medical Records [address] [place] [address] [facility] Social History Tobacco Use Types Packs/Day Years [...] Name Priority Date/Time Associated Diagnosis Comments OUTSIDE PLAIN FILM Routine 06/29/2024 OUTSIDE PLAIN FILM Routine 06/28/[address] Routine 06/27/[address] Routine 06/27/2024 OUTSIDE PLAIN FILM Routine 06/27/2024 OUTSIDE PLAIN FILM Routine 06/27/2024 OUTSIDE PLAIN FILM Routine 06/27/2024 documented in this encounter Results * OUTSIDE PLAIN FILM (06/29/2024) [facility] RADIOLOGY * OUTSIDE PLAIN FILM (06/28/2024) [facility] RADIOLOGY * OUTSIDE PLAIN FILM (06/27/2024) [facility] RADIOLOGY * OUTSIDE PLAIN FILM (06/27/2024) [facility] RADIOLOGY * OUTSIDE CT (06/27/2024) [facility] RADIOLOGY * OUTSIDE PLAIN FILM (06/27/2024) Jasmyn Ryder MD RADIOLOGY * OUTSIDE CT (06/27/2024) [facility] RADIOLOGY documented in this encounter Visit Diagnoses Not on filedocumented in this encounter Care Teams Guide Changer Relationship Specialty Start Date End Date Real Hightower MD PCP - General Internal Medicine 02/22/23 documented as of this encounter
--- OUTSIDE RECORDS SUMMARY | 2024-10-23 14:47 | XMS_ITS | Encounter Summary ---
Author Organization [facility] Address [address] [place] [address] Care Team Providers Care Patient Scheduling Coordinator Name Role Phone Real Hightower MD Primary Care Provider Reason for Visit * Reason Comments Abdominal Pain ABDOMINAL PAIN 30 MD N NO NAUSEA VOM OR DIARRHEA Encounter Details Date Type Department Care Team ([facility] st Contact Info) Description 09/25/2024 4:53 PM EST - 09/25/2024 9:25 PM [facility] Emergency [address] [place] [address] Discharge Disposition: Home or Self Care Social History Tobacco Use Types Packs/Day Years [...] on file documented as of this encounter Medications at Time of Discharge Medication Sig Dispensed Refills Start Date End Date acetaminophen (TYLENOL) 500 mg tablet Take 2 tablets (1,000 mg total) by mouth every 6 (six) hours if needed. 02/20/2024 Banophen 25 mg capsule Take 2 capsules (50 mg total) by mouth 3 (three) times a day if needed for itching or allergies. 05/30/2024 melatonin 10 mg tablet Take 1 tablet (10 mg total) by mouth at bedtime as needed for sleep. 30 tablet 3 09/25/2024 mirtazapine (REMERON) 15 mg tablet Take 1 tablet (15 mg total) by mouth 1 (one) time each day. 07/18/2024 Symtuza [phone] mg per tablet Take 1 tablet by mouth 1 (one) time each day. with food documented as of this encounter Discharge Disposition Disposition Code Departure Means Destination Home or Self Care documented in this encounter Progress Notes * Teresa Day RN - 09/25/2024 5:11 PM EST ABDOMINAL PAIN NO NAUSEA VOMITING NO DIARRHEA . EMS REPORTS PT WOULD NOT ALLOW PALPATION. PT REPORTS HE IS ALSO OUT OF [place] AND CONCERNED HE MAY HAVE A SEIZURE. PT ALSO REPORTS SOB AT TIMES. EMS REPORTS NO ABD DISTENSION documented in this encounter Plan of Treatment Upcoming Encounters Date Type Department Care Team (Late st Contact Info) Description 10/27/2024 3:00 PM EST Consult General Surgery - [place] [address] [address] Arpan Krause MD [address] [address] 10/29/2024 11:00 AM EST Office Visit Internal Medicine - [place] [address] [phone] Real Hightower MD [address] [address] documented as of this encounter Visit Diagnoses Not on filedocumented in this encounter Care Teams Patient Scheduling Coordinator Relationship Specialty Start Date End Date Real Hightower MD [address] [address] PCP - General 02/22/23 documented as of this encounter
--- OUTSIDE RECORDS SUMMARY | 2024-10-23 14:48 | XMS_ITS | Encounter Summary ---
Author Organization [facility] Address [address] [place] [address] Care Team Providers Care Drier Operator Head Name Role Phone Real Hightower MD Primary Care Provider [phone] Encounter Details Date Type Department Care Team Description 06/27/2024 Hospital Medical Records [address] [place] [address] [facility] Social History Tobacco Use Types [...] Name Priority Date/Time Associated Diagnosis Comments OUTSIDE ECHO Routine 06/29/2024 documented in this encounter Results * OUTSIDE ECHO (06/29/2024) Provider Default CARDIOLOGY [facility] documented in this encounter Visit Diagnoses Not on filedocumented in this encounter Care Teams Drier Operator Head Relationship Specialty Start Date End Date Real Hightower MD PCP - General Internal Medicine 02/22/23 documented as of this encounter
--- OUTSIDE RECORDS SUMMARY | 2024-10-23 14:48 | XMS_ITS | Encounter Summary ---
Author Organization [facility] Address [address] [place] [address] Care Team Providers Care Floor Covering Layer Name Role Phone Real Hightower MD Primary Care Provider [phone] Reason for Referral * Consultation (Routine) - Pending Review Specialty Diagnoses / Procedures Referred By Contac t Referred To Contact Ophthalmology Diagnoses Vision changes Real Hightower MD [address] [address] Referral ID Status Reason Start Date Expiration Date Visits Requested Visits Authorized [id number] Pending Review Specialty Services Required 09/28/2024 09/28/2025 1 1 * Consultation (Urgent) - Authorized Specialty Diagnoses / Procedures Referred By Contac t Referred To Contact Gastroenterology Diagnoses Gall stones Real Hightower MD [address] [address] [facility] Gastroenterology [facility] [address] [facility] [address] [place] [address] Referral ID Status Reason Start Date Expiration Date Visits Requested Visits Authorized [id number] Authorized Specialty Services Required 09/28/2024 09/28/2025 1 1 * Consultation (Urgent) - Closed Specialty Diagnoses / Procedures Referred By Contac t Referred To Contact Neurology Diagnoses Seizures (CMS/HCC) Real Hightower MD [address] [address] Tanja Turcios MD [address] [place] [address] Dr Mcmillan [address] [place] [id number] Referral ID Status Reason Start Date Expiration Date V isits Requested Visits Authorized [id number] Closed Specialty Services Required 09/28/2024 09/28/2025 1 1 * Consultation (Urgent) - Authorized Specialty Diagnoses / Procedures Referred By Shaheen t Referred To Contact General Surgery Diagnoses Gall stones Real Hightower MD [address] [address] [facility] General Surgery [address] [address] Referral ID Status Reason Start Date Expiration Date Visits Requested Visits Authorized [id number] Authorized Specialty Services Required 09/28/2024 09/28/2025 1 1 Reason for Visit * Reason Comments Hospital Follow-up Encounter Details Date Type Department Care Team (Late st Contact Info) Description 09/28/2024 10:30 AM EST Office Visit Internal Medicine - [place] [address] [phone] Real Hightower MD [address] [address] Hospital discharge follow-up (Primary Dx); Seizures (CMS/HCC); Gall stones; PTSD (post-traumatic stress disorder); Vision changes Social History Tobacco Use Types Packs/Day Years [...] on file documented as of this encounter Last Filed Vital Signs Vital Sign Reading Time Taken Comments Blood Pressure 120/80 09/28/2024 11:03 AM EST Pulse 102 09/28/2024 11:03 AM EST Temperature 36 ??C (96.8 ??F) 09/28/2024 11:03 AM EST Respiratory Rate - - Oxygen Saturation 99% 09/28/2024 11:03 AM EST Inhaled Oxygen Concentration - - Weight 71.8 kg (158 lb 3.2 oz) 09/28/2024 11:03 AM EST Height - - Body Mass Index 25.42 07/21/2024 10:06 PM EST documented in this encounter Progress Notes * Real Hightower MD - 09/28/2024 10:30 AM EST COMPLAINT Hospital follow-up IDENTIFIER: Everardo Cramer is a 24 y.o. old male. HPI: Was discharged from [facility] on 09/22/2024 presented due to confusion, possible seizures ,abdominal pain found to have common bile duct stones and cholelithiasis and distended gallbladder ,conservative managed with IV antibiotic, was put on initially on Keppra switched to Depakote. Does get some abdominal pain on and off .tolerating p.o. intake. ROS: GENERAL: No malaise, significant weight loss or fever RESPIRATORY: No cough, wheezing or shortness of breath CARDIOVASCULAR: No chest pain, leg swelling or palpitations GI: No blood in stools or black stools PAST MEDICAL HISTORY: Patient Active Problem List Diagnosis Date Noted Attention deficit disorder of adult with hyperactivity 09/24/2024 Cocaine use disorder ([facility]) 09/24/2024 Colitis 09/24/2024 HIV disease ([facility]) 09/24/2024 STD (sexually transmitted disease) 09/24/2024 Depression 09/24/2024 Depression Marijuana use 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[facility]) Psychiatric problem 07/10/2024 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[facility]) 11/24/2021 PTSD (post-traumatic stress disorder) 11/24/2021 Schizophrenia ([facility]) 11/24/2021 GI bleed 11/17/2021 Rectal bleeding 11/17/2021 HIV (human immunodeficiency virus infection) ([facility]) 10/08/2018 Marijuana use 11/05/2017 Past Surgical History: Procedure Laterality Date OTHER SURGICAL HISTORY PROCEDURE: DENIES PREVIOUS SURGERY SOCIAL HISTORY: Social History Tobacco Use Smoking status: Never Smokeless tobacco: Never Substance Use Topics Alcohol use: Yes FAMILY HISTORY: Family History Problem Relation Name Age of Onset Diabetes Mother Hypertension Mother Bipolar disorder Mother Diabetes Father Hypertension Father Diabetes Uncle Hypertension Uncle Diabetes Sister MEDICATIONS DISCONTINUED/REORDERED: There are no discontinued medications. ACTIVE MEDICATIONS: Outpatient Medications Marked as Taking for the 09/28/24 encounter (Office Visit) with Real Hightower MD Medication Sig Dispense Refill melatonin 10 mg tablet Take 1 tablet (10 mg total) by mouth at bedtime as needed for sleep. 30 tablet 3 ALLERGIES: No Known Allergies PHYSICAL EXAM: Vitals: 09/28/24 1103 BP: 120/80 Pulse: 102 Temp: 36 ??C (96.8 ??F) SpO2: 99% APPEARANCE: Alert and in no acute distress EARS: External ears normal. HEART: RRR with normal S1 and S2, no murmurs LUNG: clear to auscultation Abdomen mild tenderness on palpation the right upper quadrant LABS: Lab Results Component Value Date WBC 8.2 07/21/2024 HGB 11.5 (L) 07/21/2024 HCT 36.8 (L) 07/21/2024 MCV 84.4 07/21/2024 Lab Results Component Value Date NA 141 07/21/2024 K 3.9 07/21/2024 CO2 27 07/21/2024 CL 109 07/21/2024 BUN 7 07/21/2024 ALKPHOS 166 (H) 07/21/2024 No results found for: TSH Lab Results Component Value Date CHOL 129 02/11/2018 LDL 72 02/11/2018 HDL 40 02/11/2018 TRIG 85 02/11/2018 No components found for: URINELEUK , URINENITR , URINEPRO , URINEPH , URINEBLD , URINESG , URINEKET , URINEBILI , URINEGLUC IMAGING: IMPRESSION: 1. Hospital discharge follow-up CBC and differential Comprehensive metabolic panel Thyroid stimulating hormone 2. Seizures (CMS/HCC) Ambulatory referral to Neurology CBC and differential Comprehensive metabolic panel Thyroid stimulating hormone 3. Gall stones Ambulatory referral to General Surgery Ambulatory referral to Gastroenterology CBC and differential Comprehensive metabolic panel Thyroid stimulating hormone 4. PTSD (post-traumatic stress disorder) CBC and differential Comprehensive metabolic panel Thyroid stimulating hormone 5. Vision changes Ambulatory referral to Ophthalmology CBC and differential Comprehensive metabolic panel Thyroid stimulating hormone PLAN: Recently discharged from [facility] due to possible seizures . discharged on Depakote. need to see a neurologist .also sees a psychiatrist. Elevated liver enzyme which did downtrend at the hospital ,conservatively managed ,has gallbladder stones and CBD stone history. 117 AST was 20 ALT was 61 alk phos 104, initially AST was 717 ALT was [address] of the abdomen showed mildly distended gallbladder, right upper quadrant ultrasound showed choledocholithiasis, secondary to 3 mm calculus in the mid common bile duct .also had distended gallbladder with layering sludge small mobile gallstones, small stones in the gallbladder neck. Might have passed the stone .refer to gastro and surgery. Reviewed Hospital records coordinating care spent 45 minutes. documented in this encounter Plan of Treatment Upcoming Encounters Date Type Department Care Team (Late st Contact Info) Description 10/27/2024 3:00 PM EST Consult General Surgery - [address] [address] Arpan Krause MD 175 [facility] 110 [place] [address] 10/29/2024 11:00 AM EST Office Visit Internal Medicine - [address] 200 [place] [address] Real Hightower MD 175 [facility] 200 [place] [address] Scheduled Orders Name Type Priority Associated Diagnoses Orde r Schedule CBC and differential Lab Routine Seizures (CMS/HCC) Gall stones PTSD (post-traumatic stress disorder) Hospital discharge follow-up Vision changes 1 Occurrences starting 09/28/2024 until 09/28/2025 Comprehensive metabolic panel Lab Routine Seizures (CMS/HCC) Gall stones PTSD (post-traumatic stress disorder) Hospital discharge follow-up Vision changes 1 Occurrences starting 09/28/2024 until 09/28/2025 Thyroid stimulating hormone Lab Routine Seizures (CMS/HCC) Gall stones PTSD (post-traumatic stress disorder) Hospital discharge follow-up Vision changes 1 Occurrences starting 09/28/2024 until 09/28/2025 Scheduled Referrals Name Type Priority Associated Diagnoses Order Schedule Ambulatory referral to General Surgery Outpatient Referral Routine Gall stones 1 Occurrences starting 09/28/2024 until 09/28/2025 Ambulatory referral to Neurology Outpatient Referral Routine Seizures (CMS/HCC) 1 Occurrences starting 09/28/2024 until 09/28/2025 Ambulatory referral to Gastroenterology Outpatient Referral Routine Gall stones 1 Occurrences starting 09/28/2024 until 09/28/2025 Ambulatory referral to Ophthalmology Outpatient Referral Routine Vision changes 1 Occurrences starting 09/28/2024 until 09/28/2025 documented as of this encounter Visit Diagnoses Diagnosis Hospital discharge follow-up- Primary Other follow-up examination Seizures (CMS/HCC) Other convulsions Gall stones Calculus of gallbladder without mention of cholecystitis or obstruction PTSD (post-traumatic stress disorder) Posttraumatic stress disorder Vision changes documented in this encounter Care Teams Floor Covering Layer Relationship Specialty Start Date End Date Real Hightower MD [address] [place] [address] PCP - General 02/22/23 documented as of this encounter
--- OUTSIDE RECORDS SUMMARY | 2024-10-23 14:48 | XMS_ITS | Encounter Summary ---
Author Organization [facility] Address [address] [place] [address] Care Team Providers Care Rater Associate Name Role Phone Real Hightower MD Primary Care Provider [phone] Reason for Visit * Reason Onset Date Comments Campbell - Nina 10/06/2024 Encounter Details Date Type Department Care Team ([facility] st Contact Info) Description 10/06/2024 Telephone Internal Medicine - [place] 175 [facility] [address] [place] [phone] Real Hightower MD [address] [facility] [address] [place], [place] [phone] Campbell - Nina Social History Tobacco Use Types Packs/Day Years [...] as of this encounter Progress Notes * Gi Cardenas - 10/08/2024 12:15 PM EST Letter was made for Patient and called to let him know he can chicken picker from senior front end engineer. He said he is having pain when he eats and wants us to send in Tylenol or Motrin. Please send if appropriate. * Real Hightower MD - 10/06/2024 4:18 PM EST Gi to write a letter and I can give the medical records. * Papo Meléndez MA - 10/06/2024 1:14 PM EST Pt needs letter GARCIA please advice. He stated he needs a letter written explaining his diagnosis and health conditions. He stated he needs this urgently today, Letter is for a program pt is in. * Miranda Liao - 10/06/2024 1:03 PM EST Patient requested a letter for a program he is in. He stated he needs a letter written explaining his diagnosis and health conditions. He stated he needs this urgently today, I did inform patient it can take a few days and they will call when ready to chicken picker, but I will send it urgently. He statedhe still needs it today and said he will be coming in to chicken picker. documented in this encounter Plan of Treatment Upcoming Encounters Date Type Department Care Team (Late st Contact Info) Description 10/27/2024 3:00 PM EST Consult General Surgery - [place] [address] [phone] Arpan Krause MD 175 [facility] 110 [place] [address] 10/29/2024 11:00 AM EST Office Visit Internal Medicine - [place] [address] [phone] Real Hightower MD [address] [address] documented as of this encounter Visit Diagnoses Not on filedocumented in this encounter Care Teams Rater Associate Relationship Specialty Start Date End Date Real Hightower MD [address] [address] PCP - General 02/22/23 documented as of this encounter
--- OUTSIDE RECORDS SUMMARY | 2024-10-23 14:48 | XMS_ITS | Encounter Summary ---
[facility] Address [address] [place] [address] Care Team Providers Care Copy Chaser Name Role Phone Real Hightower MD Primary Care Provider [phone] Reason for Visit * Reason Onset Date Comments PT-1 09/28/2024 Encounter Details Date Type Department Care Team ([facility] st Contact Info) Description 09/28/2024 Telephone Internal Medicine - [place] 175 [facility] [address] [place] [phone] Real Hightower MD 175 [facility] 200 [place], [place] [phone] PT-1 Social History Tobacco Use Types Packs/Day Years [...] as of this encounter Progress Notes * Amira Adler MA - 09/29/2024 9:13 AM EST Submitted * Miranda Liao - 09/28/2024 11:37 AM EST [facility] Medicaid Group new provider or submitter number is [id number] Verify and document patients [place] Health insurance ID # (NOT [facility] ID): [id number] Payor: COMMERCIAL INSURANCE / Plan: COMMERCIAL INSURANCE / Product Type: OTHER Patient mailing address: [address] [facility] [address] Telephone Information: Work Phone Not on file. Pt. demographics verified? YES If not accurate, update registration. Is this a NEW request or a RENEWAL? New Name of treating facility: [facility] Name (first & last) of treating provider? required : Real Hightower What is the medical reason why the patient is seeing the above provider? follow up for seizures Address/Zip code for treating provider: [address] [place] [address] [address], [place] [address] Phone # for treating provider: [phone] Is the provider in the [employer] network (do they accept [place] Health insurance)? YES What specialty is this provider? Adult Medicine When is the visit scheduled for? 10/29/24 How often you will be seeing this particular provider? 10 times a year Do you have friends or family who can transport you to this visit? NO If yes, do not complete request. Is there anything stopping you from using public transportation? If yes, explain. : Yes Is there a medical reason (diagnosis) why you are unable to use public transportation? If yes, explain: various mental disorders Does patient carry self-administered oxygen? no Does patient require door through door or room to room service( ex: member cannot ambulate or wait independently outside their home/facility for transportation. no Is this is for an Adult Day Program or Suboxone clinic NO If yes to above what is arrival time n/a and what is departure time n/a If yes to above how many days a week? N/a Do you need a wheelchair van? NO If you use a wheelchair what is the height, width & length of the wheelchair? N/A Do you need an escort to accompany you? If yes, explain why. no Will you have an alternative pick-up address? no Do you have a service animal? no PT DOES NOT NEED RELEASE OF INFORMATION SIGNED documented in this encounter Plan of Treatment Upcoming Encounters Date Type Department Care Team ([facility] st Contact Info) Description 10/27/2024 3:00 PM EST Consult General Surgery - [place] [address] [phone] Arpan Krause MD [address] [address] 10/29/2024 11:00 AM EST Office Visit Internal Medicine - [place] 175 [facility] 200 [place] [address] Real Hightower MD [address] [address] documented as of this encounter Visit Diagnoses Not on filedocumented in this encounter Care Teams Copy Chaser Relationship Specialty Start Date End Date Real Hightower MD [address] [address] PCP - General 02/22/23 documented as of this encounter
--- OUTSIDE RECORDS SUMMARY | 2024-10-23 14:48 | XMS_ITS | Encounter Summary ---
Author Organization [facility] Address [address] [place] [address] Care Team Providers Care Supervisor Beam Department Name Role Phone Irais Gold MD Primary Care Provider Unany Real Conrad MD Primary Care Provider Encounter Details Date Type Department Care Team Description 10/16/[address] [address] Irais Gold MD Social History Tobacco Use Types Packs/Day Years [...] on file documented as of this encounter Miscellaneous Notes * Telephone Encounter - Ellis MessinaPMarco AntonioNMarco Antonio - 10/16/2018 10:54 AM EST DEPT Of public health He is goingoing infectious disease documented in this encounter Plan of Treatment Not on file documented as of this encounter Visit Diagnoses Not on filedocumented in this encounter Care Teams Supervisor Beam Department Relationship Specialty Start Date End Date Irais Gold MD PCP - General Internal Medicine 10/28/17 02/21/23 Real Hightower MD PCP - General Internal Medicine 02/22/23 documented as of this encounter
--- OUTSIDE RECORDS SUMMARY | 2024-10-23 14:48 | XMS_ITS | Encounter Summary ---
Author Organization [facility] Address [address] [place] [address] Care Team Providers Care Equipment Records Supervisor Name Role Phone Real Hightower MD Primary Care Provider [phone] Reason for Visit * Reason Onset Date Comments Hospital Follow-up 09/24/2024 Seizures [facility] 09/10-09/22/24 Encounter Details Date Type Department Care Team ([facility] st Contact Info) Description 09/24/2024 Telephone Internal Medicine - [place] 175 [facility] [address] [place] [phone] Real Hightower MD 175 [facility] [address] [place], [place] [phone] Hospital Follow-up (Seizures [facility] 09/10-09/22/24 ) Social History Tobacco Use Types Packs/Day Years [...] on file documented as of this encounter Ordered Prescriptions Prescription Sig Dispensed Refills Start Date End Da te melatonin 10 mg tablet Take 1 tablet (10 mg total) by mouth at bedtime as needed for sleep. 30 tablet 3 09/25/2024 documented in this encounter Progress Notes * Yuly Bass RN - 09/25/2024 10:31 AM EST Call to pt # [phone], spoke to pt Pt with severe insomnia. Asked for refill on melatonin, pended * Lucero Correia - 09/25/2024 9:47 AM EST Patient called and stated that he has been up for 4 days and is very exhausted and needs some medication to help him sleep before his appt on Saturday. Please advise Cb# [phone] * Sara Espinosa RN - 09/24/2024 5:02 PM EST Noted. Has appt on Saturday. D/c summary printed * Real Hightower MD - 09/24/2024 4:46 PM EST Not seen him for 1 year need to be seen. I did put a referral to eye doctor * Yuly Bass RN - 09/24/2024 12:[address] Hightower-pt needs refill on Dicetel that was prescribed to him at [facility]. Also, needs an urgent referral to [facility] [address] in [facility] GARCIA needs glasses. Call to pt # [phone], spoke to pt [facility] in the ICU from 09/10-09/22/24 dx'd for Seizures. Pt in out of a medication, Dicetel, that was prescribed to him at [facility]. Scheduled soonest f/u appt * Lizz Perez - 09/24/2024 11:59 AM EST Pt was at [facility] in the ICU from 09/10-09/22/24 dx'd. Had 116 Seizures. Has lost ability to see-- vision isn't as good as it used to be, is unable to read fine print. Moving is harder to do . Pt's ability to recall has decreased, memory problems. Stammering from anxiety. Needs referral to [facility] on [address] in [facility] GARCIA needs glasses. Without referral, they are booking in April. Needs to see PCP GARCIA He says he has all the paperwork and can bring it to the office. Has been prescribed Dicetel from [facility], but doesn't know the dosage as he's unable to read the paperwork. [phone] documented in this encounter Plan of Treatment Upcoming Encounters Date Type Department Care Team (Late st Contact Info) Description 10/27/2024 3:00 PM EST Consult General Surgery - [address] [phone] Arpan Krause MD [address] [address] 10/29/2024 11:00 AM EST Office Visit Internal Medicine - [address] [phone] Real Hightower MD [address] [address] documented as of this encounter Visit Diagnoses Not on filedocumented in this encounter Discontinued Medications Medication Sig Discontinue Reason Start Date End Da te melatonin 10 mg tablet Take 1 capsule by mouth at bedtime as needed for sleep. Reorder 01/04/2022 09/25/2024 documented as of this encounter Historical Medications * This list may reflect changes made after this encounter. Medication Sig Dispensed Refills Start Date End Date mirtazapine (REMERON) 15 mg tablet Take 1 tablet (15 mg total) by mouth 1 (one) time each day. 07/18/2024 Banophen 25 mg capsule Take 2 capsules (50 mg total) by mouth 3 (three) times a day if needed for itching or allergies. 05/30/2024 Symtuza [phone] mg per tablet Take 1 tablet by mouth 1 (one) time each day. with food acetaminophen (TYLENOL) 500 mg tablet Take 2 tablets (1,000 mg total) by mouth every 6 (six) hours if needed. 02/20/2024 melatonin 10 mg tablet Take 1 capsule by mouth at bedtime as needed for sleep. 01/04/2022 09/25/2024 added in this encounter Care Teams Equipment Records Supervisor Relationship Specialty Start Date End Date Real Hightower MD [address] [place] [address] PCP - General 02/22/23 documented as of this encounter
[2024-10-23 15:46] VITALS: BP 125/78; PULSE 104; RESP 18; TEMP 36.7; O2SAT 99
--- NOTE | 2024-10-23 16:27 | PC.NURSE ---
Pt is sleeping. Skin PWD. no active vomiting at this time.
[2024-10-23 16:49] LABS: MANUAL DIFF FLAG NO
[2024-10-23 16:58] LABS: Basophils Percent Auto 0.1 % (0-2); Eosinophils Absolute Auto 0.2 X10*3/uL (0.0-0.4); Eosinophils Percent Auto 1.8 % (0-4); Hematocrit 44.9 % (42.0-52.0); Hemoglobin 14.2 g/dl (14.0-18.0); Imm Gran Abs Auto 0.06 X10*3/uL (0.00-0.03); Imm Gran Pct Auto 0.6 % (0.0-0.4); Lymphocytes Absolute Auto 1.2 X10*3/uL (1.2-4.9); Lymphocytes Percent Auto 13.1 % (20-40); Mean Corpuscular HGB Conc 31.6 g/dl (31.0-36.0); Mean Corpuscular Hemoglobin 24.2 pg (27.0-33.0); Mean Corpuscular Volume 76.6 fL (80.0-98.0); Mean Platelet Volume 8.8 fL (9.4-12.4); Monocytes Absolute Auto 0.5 X10*3/uL (0.1-1.2); Monocytes Percent Auto 5.1 % (2-11); Neutrophils Absolute Auto 7.4 x10*3/uL (2.0-8.3); Neutrophils Percent Auto 79.3 % (45-73); Platelet Count 298 X10*3/uL (160-400); Red Blood Count 5.86 X10*6/uL (4.60-5.80); Red Cell Distribution Width 19.4 % (11.0-16.0); White Blood Count 9.4 X10*3/uL (4.8-10.8)
[2024-10-23 17:23] LABS: Alanine Aminotransferase 27 U/L (0-40); Albumin Level 4.3 g/dL (3.5-5.0); Alkaline Phosphatase 84 U/L (39-117); Anion Gap 15 (12-20); Aspartate Amino Transferase 29 U/L (5-37); Bilirubin Total 0.6 mg/dL (0.0-1.0); Blood Urea Nitrogen 13 mg/dL (9-16); Calcium 9.1 mg/dL (8.4-10.2); Carbon Dioxide 21 mmol/L (22-29); Chloride 108 mmol/L (96-108); Creatinine Clr Calc Pharmacy 163.5; Estimated Glomerular Filt Rate > 60; Glucose Random 91 mg/dL (60-115); Magnesium 2.2 mg/dL (1.6-2.6); Potassium 4.5 mmol/L (3.3-5.1); Sodium 139 mmol/L (135-145); Total Protein 8.2 g/dL (6.5-8.0)
[2024-10-23 17:38] LABS: Influenza A PCR NEGATIVE (Negative); Influenza B PCR NEGATIVE (Negative); Resp Syncy Virus RNA Qual PCR NEGATIVE (Negative); SARS COV2 PCR INHOUSE NEGATIVE (Negative)
--- NOTE | 2024-10-23 17:48 | PC.NURSE ---
Pt has been very difficult to work with. Has been refusing to cooperate with plan of care and now refusing to leave.
[2024-10-23 17:57] VITALS: BP 0/0; PULSE 0; RESP 16; TEMP -17.7; TEMP 0; O2SAT 0
== END 2024-10-23 18:01 | disposition still patient (30) ==
PROVIDERS: Registered Nurse Emergency; Emergency Provider Emergency Medicine Emergency Medical Services; PCP Internal Medicine
DX: R11.2 Nausea with vomiting, unspecified (principal); R10.2 Pelvic and perineal pain; Z03.818 Encounter for observation for suspected exposure to other biological agents ruled out
CPT/HCPCS: 0241U; 80053; 83735; 85025; 99282; 99283

== ENCOUNTER 2024-12-22 08:22 | Inpatient (IN) | payer OTHER, SELFPAY ==
[2024-12-22] VITALS (8 sets, daily range): BP systolic 113–170; BP diastolic 62–100; PULSE 84–120; RESP 15–20; TEMP 36.7–37.3; O2SAT 96–100; BMI 21.7
--- NOTE | ~2024-12-22 | CT_ITS ---
EXAMINATION: CT PELVIS WITH CONTRAST CLINICAL INFORMATION: Puncture wound to buttocks, with cellulitis. Rule out abscess. COMPARISON: CT abdomen and pelvis 09/11/2024. TECHNIQUE: Helical scanning of the pelvis was performed with submillimeter collimation through the pelvis with the use of oral contrast and during bolus intravenous injection of C5 mL of Omnipaque 350 intravenous contrast. Sagittal and coronal multiplanar 2-D reconstructions were obtained. This CT examination was performed using dose optimization techniques as appropriate, variously including the following: *Automated exposure control *Adjustment of mA and/or kV according to patient size (this includes techniques or standardized protocols for targeted exams where dose is matched to indication/reason for exam; i.e. extremities or head) *Use of iterative reconstruction technique FINDINGS: There is induration and fat stranding in the left perineum and extending along side the left gluteal crease. This extends to the base of the scrotum, without definite scrotal involvement. No definite organized fluid collection. There is a suggestion of an organizing (but not yet organized) oval fluid collection in the left posterior perineum measuring approximately 2.1 x 2.3 x 3.4 cm (series 2, image 55; series 5, image 87), just deep to the skin. A forming abscess is a consideration. Cephalad, no extension into the levator sling musculature. No definite involvement of the perianal region. No abnormal lymphadenopathy identified. No free fluid in the pelvis. The imaged ureters, urinary bladder, prostate, bowel structures, appendix, and vascular structures appear normal. The pelvic girdle musculature is normal in attenuation without focal fluid collection. There is no suspicious osseous abnormality. CT/CT pelvis w IV con IMPRESSION: 1. Inflammation/cellulitis of the left posterior perineum extending into the left gluteal crease. There is a suggestion of a forming but not yet fully organized fluid collection in the left posterior perineum measuring approximately 2.1 x 2.3 x 3.4 cm as described above. No involvement of the levator sling, intrapelvic region, definite involvement of the scrotum, or extension to the anal verge. No abnormal lymphadenopathy. Electronically signed by: Rajeev Cardenas MD 12/22/2024 10:37 AM EDT
--- NOTE | 2024-12-22 08:41 | ED_ITS ---
HPI - Fall General Chief Complaint: Fall Stated Complaint: FALL LAST NOC,LLE SPLINTERS & PAIN PER EMS Time Seen by Provider: 12/22/24 08:25 Source: patient and EMS Mode of arrival: EMS Limitations: no limitations History of Present Illness ED Provider: Rosetta Willoughby PA-C HPI Narrative: 24 yo male presents to the ER for evaluation of an injury to his buttocks after he slipped and fell onto a piece of wood last night walking up the stairs in his apartment building. He states a long 3 foot piece of wood on the stair came off and hit him in the forehead and then he landed on it. When he landed the wood piece impaled his left buttock. He was able to pull it out. He reports worsening pain and swelling in the area. Denies fever or chills. He is very anxious and worried some wood may still be stuck inside. He also reports a scrape on his forehead where the wood hit him. No LOC when he fell. No other injuries. MD complaint: fall Onset (ago): hour(s) (11) Fall from: standing Fall witnessed: no Place fall occurred: home Loss of consciousness: none Prolonged down time: no Symptoms prior to fall: none Context: tripped/slipped Location of injury: head, genitals and buttocks Severity: severe Quality: aching and throbbing Associated symptoms (after fall): denies Related Data Previous Rx's ?Medication ?Instructions ?Recorded divalproex 500 mg tablet,delayed 1,000 mg (2 x 500 mg) PO BID #120 09/22/24 release tabs ondansetron 4 mg disintegrating 4 mg PO Q8H PRN nausea and 10/23/24 tablet vomiting #10 tabs Allergies Allergy/AdvReac Type Severity Reaction Status Date / Time No Known Allergies Allergy Verified 12/22/24 08:38 [No Known Allergies*] Review of Systems 2 Review of Systems: Yes all other systems are reviewed and are negative PMFSH Past Medical History Medical History HIV (human immunodeficiency virus infection) Social History Social History Household Members: None Household Members Other:: sister assisted in answering questions as patient is sleepy Housing: Apartment Do you presently have visiting nurse or other home services: No Alcohol intake: never Comment: 1:1 Patient Tobacco Use Status: Never used Tobacco Substance Use Type: Amphetamines and Methamphetamine Advance Directives: No Advance Directives Information Provided: No Do you have a plan to hurt others: No Plan Physical Exam 2 Vital Signs: Vital Signs: Last Vital Signs Temp 98.2 F 12/22/24 12:25 Pulse 84 12/22/24 12:25 Resp 17 12/22/24 12:25 BP 170/89 H 12/22/24 12:25 Pulse Ox 96 12/22/24 12:25 O2 Del Method Room Air 12/22/24 12:25 BMI result Body Mass Index 21.7 Appearance: Alert. Oriented X3. Anxious, restless Head: normocephalic, superficial 3cm linear abrasion to the right side of the forehead, no surround erythema or warmth. Eyes: Pupils equal, round and reactive to light. ENT: Pharynx normal. No tonsillar swelling or exudate. Neck: Normal inspection. Neck supple. CVS: Normal heart rate and rhythm. Pulses normal. Respiratory: No respiratory distress. Breath sounds normal. Abdomen: Soft and nontender. +BS x4 : normal inspection of the genitalia. Left peineal area with moderate induration, central area with 1cm puncture wound without appreciated fluctuation, significant tenderness throughout, no discharge or drainage. area is warm, erythematous and extremely tender Skin: Skin warm and dry. Normal skin color. Normal skin turgor. No rashes. Extremities: No lower extremity edema. No joint swelling. Neuro/psych: Oriented X 3. No motor deficit. No sensory deficit. CN II-XII intact. Normal speech and cognition. Medications Administered Discontinued Medications Generic Name Dose Route Start Last Admin Trade Name Freq PRN Reason Stop Dose Admin Vancomycin HCl 1,000 mg/ 535 mls @ 267.5 mls/hr 12/22/24 08:47 12/22/24 12:25 Vancomycin HCl 750 mg/ Sodium IV 12/22/24 10:46 Infused Chloride ONCE ONE Infusion Cefepime HCl 2 gm in 50 mls @ 100 mls/hr 12/22/24 08:47 12/22/24 10:15 Maxipime IV 12/22/24 09:16 Infused ONCE ONE Infusion Lactated Ringer's 1,000 mls @ 999 mls/hr 12/22/24 09:00 12/22/24 10:46 Lr IV 12/22/24 10:00 Infused .Q1H1M DEVON Infusion Iohexol 100 ml 12/22/24 10:09 12/22/24 10:09 Iohexol 350 Mg/Ml 100 Ml Infus..Btl IV 12/22/24 10:10 85 ml ONCE ONE Administration Lidocaine HCl 10 ml 12/22/24 12:00 12/22/24 12:20 Lidocaine Hcl 1 % 20 Ml Vial INFILTRATI 12/22/24 12:01 10 ml ONCE ONE Administration Lorazepam 1 mg 12/22/24 12:39 12/22/24 12:43 Lorazepam 2 Mg/Ml Vial IVPUSH 12/22/24 12:40 1 mg ONCE ONE Administration Morphine Sulfate 4 mg 12/22/24 08:47 12/22/24 09:45 Morphine Sulfate 4 Mg/Ml Cartridge IVPUSH 12/22/24 08:48 4 mg ONCE ONE Administration Protocol Morphine Sulfate 4 mg 12/22/24 12:00 12/22/24 12:20 Morphine Sulfate 4 Mg/Ml Cartridge IVPUSH 12/22/24 12:01 4 mg ONCE ONE Administration Protocol Medical Decision Making Medical Decision Making [facility] Narrative: 24 yo male presents to the ER for evaluation of left buttock pain after he fell onto a piece of wood in his stairway last night. Exam is concerning for significant cellulitis changes with induration, warmth and tenderness. CT scan ordered to assess for abscess and retained foreign body. empiric vanco and cefepime ordered along with morphine and IVF. re-evaluation patient's pain is improved. he is less tachycardic. CT scan with area an organizing collection in the left perineum. surgery consulted patient seen and evaluated by surgery, I&D performed at the bedside plan for admission for observation Differential Diagnosis Differential Diagnoses: The differential diagnosis associated with the presentation includes abscess, cellulitis, retained foreign body, necrotizing fascitis Admission/Observation Consideration of admission/observation: Escalation of care including admission/observation considered Consult Healthcare Provider Management of the patient was discussed with: Supervisor [employer] Dr. Grayson Lab Data [facility] Lab Attestation statement: I reviewed the patient's lab results. leukocytosis, mild anemia, no major metabolic derangements 12/22/24 09:17 12/22/24 09:17 Labs: Lab Results 12/22/24 12/22/24 Range/Units 09:17 11:58 WBC 13.0 H (4.8-10.8) X10*3/uL RBC 5.44 (4.60-5.80) X10*6/uL Hgb 12.9 L (14.0-18.0) g/dl Hct 39.8 L (42.0-52.0) % MCV 73.2 L (80.0-98.0) fL MCH 23.7 L (27.0-33.0) pg MCHC 32.4 (31.0-36.0) g/dl RDW 17.3 H (11.0-16.0) % Plt Count 352 (160-400) X10*3/uL MPV 8.5 L (9.4-12.4) fL Immature Gran % (Auto) 0.6 H (0.0-0.4) % Neut % (Auto) 67.8 (45-73) % Lymph % (Auto) 20.6 (20-40) % [place] % (Auto) 9.8 (2-11) % Eos % (Auto) 1.0 (0-4) % Baso % (Auto) 0.2 (0-2) % Lymph # (Auto) 2.7 (1.2-4.9) X10*3/uL [place] # (Auto) 1.3 H (0.1-1.2) X10*3/uL Eos # (Auto) 0.1 (0.0-0.4) X10*3/uL Baso # (Auto) 0.0 (0.0-0.2) X10*3/uL Abs Immat Gran (auto) 0.08 H (0.00-0.03) X10*3/uL Absolute Neuts (auto) 8.8 H (2.0-8.3) x10*3/uL Absolute Nucleated RBC 0.000 (0.0-0.012) X10*3/uL Nucleated RBC % (auto) 0.0 (0.0-0.2) /100WBC ESR 9 (0-15) MM/HR Sodium 135 (135-145) mmol/L Potassium 4.3 (3.3-5.1) mmol/L Chloride 104 (96-108) mmol/L Carbon Dioxide 24 (22-29) mmol/L Anion Gap 11 L (12-20) BUN 10 (9-16) mg/dL Creatinine 0.81 (0.5-1.4) mg/dL Estim Creat Clear Calc 130.3 Estimated GFR > 60 Random Glucose 121 H (60-115) mg/dL Lactic Acid 1.9 (0.5-2.0) mmol/L Calcium 9.3 (8.4-10.2) mg/dL Magnesium 1.8 (1.6-2.6) mg/dL Total Bilirubin 0.2 (0.0-1.0) mg/dL Direct Bilirubin < 0.2 (0.0-0.5) mg/dL AST 26 (5-37) U/L ALT 20 (0-40) U/L Alkaline Phosphatase 85 (39-117) U/L C-Reactive Protein 1.18 H (< or = 0.50) mg/dL Total Protein 7.8 (6.5-8.0) g/dL Albumin 4.0 (3.5-5.0) g/dL Urine Color Yellow Urine Appearance Clear Urine pH 7.5 (5.0-9.0) Ur Specific [place] >= 1.030 H (1.005-1.025) Urine Protein Negative (Neg-Trace) mg/dL Urine Glucose (UA) Negative (Negative) mg/dL Urine Ketones Negative (Negative) mg/dL Urine Blood Negative (Negative) Urine Nitrite Negative (Negative) Ur Leukocyte Esterase Negative (Negative) Urine Opiates Screen POSITIVE H (Not Detect) Ur Buprenorphine Scrn Not Detected (Not Detect) ng/mL Ur Oxycodone Screen Not Detected (Not Detect) ng/mL Urine Methadone Screen Not Detected (Not Detect) ng/mL Urine Fentanyl Screen Not Detected (Not Detect) Ur Barbiturates Screen Not Detected (Not Detect) Ur Phencyclidine Scrn Not Detected (Not Detect) Ur Amphetamines Screen POSITIVE H (Not Detect) U Benzodiazepines Scrn Not Detected (Not Detect) Urine Cocaine Screen Not Detected (Not Detect) U Marijuana (THC) Screen Not Detected (Not Detect) Independent Interpretation I performed an independent interpretation of an: CT Scan Interpretation: CT with fluid collection on the left side, no rim enhancing lesion Radiology Impression Discussion of test interpretation with radiology: I have reviewed the radiologist's reading. Independent Historian Clinical information obtained from an independent historian. History obtained from or confirmed by: EMS External Record Review External record reviewed: Outpatient record and Prior outpatient labs Prescription Management I considered prescription management with: Pain Medication and Antibiotic Critical Care Time Critical Care Time Critical Care Time: Yes Total Critical Care Time: 36 Attestation: I have personally provided critical care time exclusive of time spent on separately billable procedures. Time includes review of lab data, radiology results, discussion with consultants, and monitoring for potential decompensation. Intervention performed as documented. Discharge Plan Discharge Clinical Impression: Cellulitis of perineum Patient Disposition: Admitted As Inpatient Print Language: Citizen Of [place]
[2024-12-22 09:25] LABS: MANUAL DIFF FLAG NO
[2024-12-22 09:26] LABS: Basophils Percent Auto 0.2 % (0-2); Eosinophils Absolute Auto 0.1 X10*3/uL (0.0-0.4); Hematocrit 39.8 % (42.0-52.0); Hemoglobin 12.9 g/dl (14.0-18.0); Imm Gran Abs Auto 0.08 X10*3/uL (0.00-0.03); Imm Gran Pct Auto 0.6 % (0.0-0.4); Lymphocytes Absolute Auto 2.7 X10*3/uL (1.2-4.9); Lymphocytes Percent Auto 20.6 % (20-40); Mean Corpuscular HGB Conc 32.4 g/dl (31.0-36.0); Mean Corpuscular Hemoglobin 23.7 pg (27.0-33.0); Mean Corpuscular Volume 73.2 fL (80.0-98.0); Mean Platelet Volume 8.5 fL (9.4-12.4); Monocytes Absolute Auto 1.3 X10*3/uL (0.1-1.2); Monocytes Percent Auto 9.8 % (2-11); Neutrophils Absolute Auto 8.8 x10*3/uL (2.0-8.3); Neutrophils Percent Auto 67.8 % (45-73); Platelet Count 352 X10*3/uL (160-400); Red Blood Count 5.44 X10*6/uL (4.60-5.80); Red Cell Distribution Width 17.3 % (11.0-16.0)
[2024-12-22] MEDS: cefEPime HCl/D5W 2 GM/50 ML PIGGYBACK IV (09:45)
[2024-12-22] MEDS: Morphine Sulfate 4 MG/ML CARTRIDGE IVPUSH ×2 (09:45→12:20)
[2024-12-22] MEDS: Lactated Ringers 1,000 ML 999 ML IV (09:45)
[2024-12-22 09:50] LABS: Alanine Aminotransferase 20 U/L (0-40); Alkaline Phosphatase 85 U/L (39-117); Anion Gap 11 (12-20); Aspartate Amino Transferase 26 U/L (5-37); Bilirubin Direct < 0.2 mg/dL (0.0-0.5); Bilirubin Total 0.2 mg/dL (0.0-1.0); Blood Urea Nitrogen 10 mg/dL (9-16); C Reactive Protein 1.18 mg/dL (< or = 0.50); Calcium 9.3 mg/dL (8.4-10.2); Carbon Dioxide 24 mmol/L (22-29); Chloride 104 mmol/L (96-108); Creatinine Clr Calc Pharmacy 130.3; Estimated Glomerular Filt Rate > 60; Glucose Random 121 mg/dL (60-115); Lactic Acid 1.9 mmol/L (0.5-2.0); Magnesium 1.8 mg/dL (1.6-2.6); Potassium 4.3 mmol/L (3.3-5.1); Sodium 135 mmol/L (135-145); Total Protein 7.8 g/dL (6.5-8.0)
--- OUTSIDE RECORDS SUMMARY | 2024-12-22 09:58 | XMS_ITS ---
[facility] Name [facility] Encounters Encounter Type Encounter Reason Primary Diagnosis Location Date Inpatient Hemorrhage of an us and rectum [facility] 11[facility]17/2021 [place] [facility] [place] 11/17/2021 Care Team Organization Name Specialty Phone Email Start Date End [facility] 11/17/2021 05/04/2024 [facility] NOT FILE Primary Care 11/17/2021 11/17/2021
--- OUTSIDE RECORDS SUMMARY | 2024-12-22 09:58 | XMS_ITS | Clinical Summary ---
Author Organization [facility] Address [address] [place] [address] Care Team Providers Care Ironer Sock Name Role Phone Provider, Conversion MD Primary [...] (11/17/2021): Added automatically from request for surgery [id number] GI bleed 11/17/2021 Social History Tobacco Use [...] Completed 11/18/2021 Medical Devices Implanted Type Area Psychiatric Social Worker Supervisor Device Identifier Shelf Expiration Date Model / Serial / Lot Resolution Ultra Clip Implanted:Qty: 2 on 11/19/2021 by Abril Machado MD at [facility] [employer] [id number] / / Description:Not an implant. Charging purposes only. Abbie Procedures Procedure Name Priority Date/Time Associated Diagnosis Comments HIV-1 RNA VIRAL LOAD, QUANTITATIVE Routine 11/18/2021 12:15 PM EST from Last 3 Months or Most Recently Relevant to Health Maintenance Results * (ABNORMAL) HIV-1 RNA Viral Load, Quantitative (11/18/2021 12:15 PM EST) HIV-1 RNA (copies/mL) 291,728(H) <30 copies/mL 11/23/2021 2:59 PM EST HIV-1 RNA (log10) 5.46(H) <1.46 log copies/mL 11/23/2021 2:59 PM EST Interpretation Detected 11/23/2021 2:59 PM EST Comment:Performed by FDA elham roved modu Aptima TMA. Linear range is 30 to 10,000,000 copies/mL. HIV Genotyping is not recommended for viral loads below 2,000 copies/mL. Not FDA approved to diagnose HIV infection. Blood specimen (specimen) Plasma specimen / Unknown 11/18/2021 12:15 PM EST 11/18/2021 12:55 PM EST Shani Blankenship MD [facility] [address] [place] [address] from Last 3 Months or Most Recently Relevant to Health Maintenance Advance Directives * Full Code (Latest Code Status on File) Date Activated Date Inactivated Comments 11/17/2021 12:47 PM Healthcare Agents on File Name Relationship Healthcare Agent Relationship Communication Divya Cramer Adult sibling 4. Next of Kin (Spouse, Adult Child, Parent, Adult Sibling, Grandparent) Care Teams Ironer Sock Relationship Specialty Start Date End Date ProviderDivya MD PCP - General 11/17/21
--- OUTSIDE RECORDS SUMMARY | 2024-12-22 09:58 | XMS_ITS | Clinical Summary ---
Author Organization [employer] Address [address] [facility] [address] [place] [address] Care Team Providers Care Food Service Helper Name Role Phone Unavailable Primary Care Provider [...]
--- OUTSIDE RECORDS SUMMARY | 2024-12-22 09:58 | XMS_ITS | Encounter Summary ---
Author Organization [facility] Address [address] [facility] [address] [place] [address] Care Team Providers Care Thread Trimmer Name Role Phone Unavailable Primary Care Provider [...]
--- OUTSIDE RECORDS SUMMARY | 2024-12-22 09:58 | XMS_ITS | Clinical Summary ---
Author Organization [facility] Address [address] [place] [address] Phone Care Team Providers Care Assistant Federal Public Defender Name Role Phone Real Hightower MD Primary Care Provider [phone] Allergies No known active allergies Medications acetaminophen (TYLENOL) 500 mg tablet Take 2 tablets (1,000 mg total) by mouth every 6 (six) hours if needed. 02/20/2024 Active Symtuza [phone] mg per tablet Take 1 tablet by [...] for moderate pain. 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 PTSD (post-traumatic stress disorder) 11/24/2021 Schizophrenia 11/24/2021 GI bleed 11/17/2021 Rectal bleeding 11/17/2021 Overview (09/24/2024): Added automatically from request for surgery [id number] HIV (human immunodeficiency virus infection) Marijuana use 11/05/2017 Depression Overview (07/21/2024): DX:Depression Marijuana use Overview (07/21/2024): DX:Marijuana use Immune deficiency disorder Encounters Date Type Department Care Team Description 10/23/2024 Telephone Internal Medicine [address] [phone] Real Hightower MD Abdominal Pain 10/14/2024 Telephone Internal Medicine [address] [phone] Real Hightower MD Joseph:Medication 10/06/2024 [place] [facility] [address] [phone] Real Hightower MD [place] - Letter 09/28/2024 10:30 AM EST Office Visit Internal [address] [phone] Real Hightower MD Hospital discharge follow-up (Primary Dx); Seizures (CMS/HCC); Gall stones; PTSD (post-traumatic stress disorder); Vision changes 09/28/2024 Telephone Internal Medicine [address] [phone] Real Hightower MD PT-1 09/25/2024 4:53 PM EST - 09/25/2024 9:25 PM EST Emergency [facility] Emergency [address] [place] [address] Discharge Disposition: Home or Self Care 09/24/2024 Telephone Internal Medicine [address] [place] [address] Real Hightower MD [place] Follow-[place] [facility] [place] from Last 3 Months Immunizations [...] Recorded Sex Assigned at Not on file Legal Sex Male 11:19 AM EST Gender Identity Not on file Sexual Orientation Not on file Obstetrics History Last Filed [...] 07/21/2024 10:06 PM EST Plan of Treatment Health Maintenance Due Date Last Done Comments COVID-19 Vaccine (#1) 2003 Meningococcal ACWY Vaccine (2 - Risk 2-dose series) 01/06/2016 11/11/2015 MMR Vaccines (1 of 2 - Risk 2-dose series) 2016 Hepatitis B Vaccines (1 of 3 - 19+ 3-dose series) 2017 Pneumococcal Vaccine: Pediatrics (0 to 5 Years) and At-Risk Patients (6 to 64 Years) (2 of 2 - PPSV23) 01/14/2019 11/19/2018 Depression Screening 08/20/2021 Social Influencers of Health Screening 08/20/2021 HPV Vaccines (3 - Risk male 3-dose series) 08/16/2024 04/16/2024, 11/19/2018 Influenza Vaccine (Season Ended) 2025 11/19/2018, 08/13/2018, 06/12/2016, Additional history exists DTaP,Tdap,and Td Vaccines (3 - Td or Tdap) 11/19/2028 11/19/2018, 08/13/2018 Hepatitis A Vaccines Completed 09/25/2018, 11/11/19 16 Hepatitis C Screening Completed 09/25/2018 HIB Vaccines Aged Out No longer eligi ble based on patient's age to complete this topic IPV Vaccines Aged Out No longer eligi ble based on patient's age to complete this topic Meningococcal B Vaccine Aged Out No l onger eligible based on patient's age to complete [...] C Screening (09/25/2018) Hepatitis C Screening abstracted us Historical Provider HEALTH MAINTENANCE Final Result from Last 3 Months or Most Recently Relevant to Health Maintenance Insurance [facility] [employer] Care Teams Assistant Federal Public Defender Relationship Specialty Start Date End Date Real Hightower MD [address] [facility] [address] [place] [address] PCP - General 02/22/23
[2024-12-22 10:04] LABS: Erythrocyte Sedimentation Rate 9 MM/HR (0-15)
--- NOTE | 2024-12-22 10:08 | PC.NURSE ---
Away for imaging. Infusion stopped for IV contrast. Will resume upon return. Care ongoing by this RN & provider.
[2024-12-22] MEDS: iohexoL 350 MG/ML 100 ML INFUS..BTL IV (10:09)
[2024-12-22] MEDS: vancomycin HCL 1,000 MG, vancomycin HCL 750 MG in 0.9 % Sodium Chloride 500 ML 267.5 MG IV (10:30)
--- NOTE | 2024-12-22 10:32 | PC.NURSE ---
Patient is exhibiting erratic/manic behaviors. Occasionally twitchy, rapid fire speaking. Occasionally speaking to self. Asked this RN if it's 8pm (it is currently 10:30am). Patient is cooperative, but forgetful. Laying on right side for comfort. 20g IV access to left AC, medications infusing as ordered. CT scan completed, report pending. Patient repeatedly asking for food & liquids, seconds apart, repeatedly instructed to remain NPO until medically cleared. Reminders needed frequently. Patient got out of his bed without calling for help and used the bathroom while myself (& other staff) were in another patient's room. Redirected to use call case.
--- NOTE | 2024-12-22 11:03 | PC.NURSE ---
Patient refused TDaP vaccine stating nah man, I don't wanna get that right now. I need to eat something first. I'm gonna take it later, appreciate you! Discussed the importance of this medication. Patient continued to refuse medication and again asked for several different types of foods and is rambling to himself. He remains laying on his right side.
[2024-12-22 12:08] LABS: Appearance Urine Clear; Color Urine Yellow; Glucose Urine UA Negative (Negative); Leukocyte Esterase Urine Negative (Negative); Nitrite Urine Negative (Negative); PH 7.5 (5.0-9.0); Specific Gravity - Urine >= 1.030 (1.005-1.025); Urine Blood Negative (Negative); Urine Ketones Negative (Negative); Urine Protein Negative (Neg-Trace)
[2024-12-22] MEDS: Lidocaine HCl 1 % 20 ML VIAL 10 ML INFILTRATI (12:20)
[2024-12-22 12:24] LABS: Amphetamine Screen Urine POSITIVE (Not Detect); Barbiturates, Urine Not Detected (Not Detect); Benzodiazepines Screen Urine Not Detected (Not Detect); Buprenorphine Scr Not Detected (Not Detect); Cannabinoid Screen Urine Not Detected (Not Detect); Cocaine Screen Urine Not Detected (Not Detect); Fentanyl, urine Not Detected (Not Detect); Methadone Screen, Urine Not Detected (Not Detect); Opiate Screen Urine POSITIVE (Not Detect); Oxycodone Screen Urine Not Detected (Not Detect); Phencyclidine Screen Urine Not Detected (Not Detect)
[2024-12-22] MEDS: LORazepam 2 MG/ML VIAL 1 MG IVPUSH (12:43)
--- NOTE | 2024-12-22 13:03 | PM.HPGS ---
History of Present Illness History of Present Illness Date of Service: 12/22/24 <Ginger Murrieta PA-C - Last Filed: 12/22/24 13:21> 12/22/24 <Judith Grayson MD - Last Filed: 12/22/24 17:13> Chief complaint: cellulitis <Ginger Murrieta PA-C - Last Filed: 12/22/24 13:21> Narrative: Everardo Cramer is a 24 year old male with PMH of HIV, schizophrenia, seizures vs pseudoseizures, substance abuse who presented to the ED with complaints of pain at his left buttock. He reports he slipped and fell onto a piece of wood last night walking up the stairs in his apartment building. He states the piece of wood impaled his left buttock and he removed it, cleaned the area with an alcohol swab and went to bed. He reports worsening pain, swelling and redness in the area. He therefore came to the ED for evaluation. He denies fever or chills. Work up in the ED included CBC, BMP, LFTs which showed a mild leukocytosis of 13. CT scan pelvis showed inflammation/cellulitis of the left posterior perineum extending into the left gluteal crease with suggestion of a forming but not organized fluid collection in the left posterior perineum. He was given tetanus vaccine in the ED. <Ginger Murrieta PA-C - Last Filed: 12/22/24 13:21> Review of Systems Review of Systems: Yes all other systems are reviewed and are negative <Ginger Murrieta PA-C - Last Filed: 12/22/24 13:21> [facility] Past Medical History Medical History: Medical History HIV (human immunodeficiency virus infection) <Ginger Murrieta PA-C - Last Filed: 12/22/24 13:21> Social History Social History: Social History Household Members: None Household Members Other:: sister assisted in answering questions as patient is sleepy Housing: Apartment Do you presently have visiting nurse or other home services: No Alcohol intake: current Alcohol intake frequency: holidays/special occasions only Comment: 1:1 Patient Tobacco Use Status: Never used Tobacco Smoked in Last 30 Days: No Use of substances other than those prescribed or required for medical reasons: Yes Substance Use Type: Amphetamines Substance Use Frequency: Chronic Longstanding Advance Directives: No Advance Directives Information Provided: No Do you have a plan to hurt others: No Plan Nutrition Risks: No Nutritional Risk <Ginger Murrieta PA-C Last Filed: 12/22/24 13:21> Meds Allergies/Adverse reactions: Allergies Allergy/AdvReac Type Severity Reaction Status Date / Time No Known Allergies Allergy Verified 12/22/24 08:38 [No Known Allergies*] <Ginger Murrieta PA-C Last Filed: 12/22/24 13:21> Physical Exam Vital Signs: Vital Signs: Last Vital Signs Temp 98.2 F 12/22/24 12:25 Pulse 84 12/22/24 12:25 Resp 17 12/22/24 12:25 BP 170/89 H 12/22/24 12:25 Pulse Ox 96 12/22/24 12:25 O2 Del Method Room Air 12/22/24 12:25 BMI result Body Mass Index 21.7 <Ginger Murrieta PA-C Last Filed: 12/22/24 13:21> Const: General: comfortable, no acute distress and alert <Ginger Murrieta PA-C Last Filed: 12/22/24 13:21> Orientation/consciousness: patient oriented x3 <Ginger Murrieta PA-C Last Filed: 12/22/24 13:21> Neck: Neck: Yes no JVD <Ginger Murrieta PA-C Last Filed: 12/22/24 13:21> Resp: Effort & Inspection: normal respiratory effort <LESLIE Boston Last Filed: 12/22/24 13:21> Cardio: Rate: regular rate <Ginger Murrieta PA-C Last Filed: 12/22/24 13:21> Skin: Other: left perineum with erythema and mild edema extending posteriorly into buttock and anteriorly to scrotum, there is a small draining puncture wound of the left perineum with some fluctuance underneath, small amount of purulent drainage expressed <LESLIE Boston Last Filed: 12/22/24 13:21> Neuro: General: patient oriented x3 and moves all extremities <LESLIE Boston Last Filed: 12/22/24 13:21> Extrem: General: Yes no clubbing, cyanosis or edema <LESLIE Boston Last Filed: 12/22/24 13:21> Results Results Labs: Short CBC 12/22/24 Range/Units 09:17 WBC 13.0 H (4.8-10.8) X10*3/uL Hgb 12.9 L (14.0-18.0) g/dl Hct 39.8 L (42.0-52.0) % Plt Count 352 (160-400) X10*3/uL BMP 12/22/24 09:17 Sodium 135 Potassium 4.3 Chloride 104 Carbon Dioxide 24 BUN 10 Creatinine 0.81 Calcium 9.3 Liver Function 12/22/24 Range/Units 09:17 Total Bilirubin 0.2 (0.0-1.0) mg/dL Direct Bilirubin < 0.2 (0.0-0.5) mg/dL AST 26 (5-37) U/L ALT 20 (0-40) U/L Alkaline Phosphatase 85 (39-117) U/L Albumin 4.0 (3.5-5.0) g/dL Urine 12/22/24 Range/Units 11:58 Urine Color Yellow Urine Appearance Clear Urine pH 7.5 (5.0-9.0) Ur Specific [place] >= 1.030 H (1.005-1.025) Urine Protein Negative (Neg-Trace) mg/dL Urine Glucose (UA) Negative (Negative) mg/dL <LESLIE Boston Last Filed: 12/22/24 13:21> CT scan - pelvis: report reviewed and image reviewed <LESLIE Boston Last Filed: 12/22/24 13:21> Assessment and Plan (1) Cellulitis of perineum: Status: Acute <LESLIE Boston Last Filed: 12/22/24 13:21> 24 year old male with PMH of HIV, schizophrenia, seizures vs pseudoseizures, substance abuse presenting with erythema/edema of left buttock and perineum following penetrating injury to area. CT scan pelvis shows cellulitis with phlegmonous changes. He is clinically well and non toxic appearing. On exam there was a fluctuant area with some drainage from the puncture wound. It was recommended to proceed with I&D at bedside and to be admitted to the hospital for IV abx and he agreed. See separate procedure note. The I&D had some purulent drainage but more sanguineous suggesting possible hematoma of the area. He did not tolerate the procedure very well and therefore we discussed reassessing the area in the morning for possible further drainage which can be done under anesthesia if needed. Cont local wound care for now. <Ginger Murrieta PA-C - Last Filed: 12/22/24 13:21> 24 year old male with PMH of HIV, schizophrenia, seizures vs pseudoseizures, substance abuse presenting with erythema/edema of left buttock and perineum following penetrating injury to area. CT scan pelvis shows cellulitis with phlegmonous changes. He is clinically well and non toxic appearing. On exam there was a fluctuant area with some drainage from the puncture wound. It was recommended to proceed with I&D at bedside and to be admitted to the hospital for IV abx and he agreed. See separate procedure note. The I&D had some purulent drainage but more sanguineous suggesting possible hematoma of the area. He did not tolerate the procedure very well and therefore we discussed reassessing the area in the morning for possible further drainage which can be done under anesthesia if needed. Cont local wound care for now. Patient is seen with ELIZA Murrieta above and agree with findings. Procedure did not reveal significant fluid so will continue with conservative care. IV antibiotics follow up labs. <Judith Grayson MD - Last Filed: 12/22/24 17:13> Quality Stroke Does the patient have a stroke diagnosis?: No <Ginger Murrieta PA-C - Last Filed: 12/22/24 13:21> VTE Prior VTE?: No <Ginger Murrieta PA-C - Last Filed: 12/22/24 13:21> VTE Risk Level:: Medical - low <Ginger Murrieta PA-C - Last Filed: 12/22/24 13:21> VTE Device Contraindication: N/A - Device Ordered <Ginger Murrieta PA-C - Last Filed: 12/22/24 13:21> VTE Drug Contraindication: Treatment Not Indicated <Ginger Murrieta PA-C - Last Filed: 12/22/24 13:21> Procedures Date of Service Date of Service: 12/22/24 <Ginger Murrieta PA-C - Last Filed: 12/22/24 13:21> 12/22/24 <Judith Grayson MD - Last Filed: 12/22/24 17:13>
--- NOTE | 2024-12-22 13:08 | PC.NURSE ---
Dr. Grayson & ELIZA Murrieta performed drainage at bedside. Patient screamed loudly throughout procedure, swearing, but was otherwise cooperative. Sanguineous drainage noted. Plan to admit for overnight observation per Dr. Grayson. Okay to have food & beverages. Will be NPO after midnight. Patient requested vanilla ice cream, peanut butter, and renard crackers to mix together to make my own ice cream mix . Care ongoing by this RN.
--- NOTE | 2024-12-22 13:31 | PM.PROC ---
Brief Operative Note Date of procedure: 12/22/24 Pre-op diagnosis: cellulitis and abscess of perineum Post-op diagnosis: same Procedure: Patient was placed in frog leg position on the stretcher. The site of procedure was confirmed by the patient. After assuring informed consent, the patient was premedicated with IV morphine. The skin was prepped with betadine. 1% lidocaine local anesthesia was then infiltrated over the central portion of the fluctuance. An incision was made with an 11 blade measuring approximately 2 cm in the same location. This was deepened into the subcutaneous tissue. A pocket was identified with some purulent appearing and then sanguineous drainage. A culture was obtained. The area was then probed with a snap to ensure any loculations were broken up and the entire collection was drained. There was some further fluctuance superiorly despite the probing. He had some difficulty tolerating this and was given 1mg IV ativan. The fluctuant area superiorly was then anesthetized further with lidocaine and then incised with an 11 blade. The second incision was then probed with a snap with evacuation of small amount of sanguineous drainage. No further fluctuance was appreciated. Pressure was held with sterile gauze until hemostasis ensured and the two incisions were packed with 1/2in iodoform packing. Abd dressing and mesh underwear applied. Patient was comfortable following procedure.
[2024-12-22] MEDS: Piperacillin Sodium/Tazobactam 3.375 GM in 0.9 % Sodium Chloride 50 ML IV ×2 (13:36→20:26)
[2024-12-22] MEDS: Diphth,Pertus(ACell),Tet Adult 0.5 ML SYRINGE IM (13:36)
[2024-12-22] MEDS: Lactated Ringers 1,000 ML 80 ML IVCONT (13:40)
--- NOTE | 2024-12-22 14:26 | PHA.MEDREC ---
Addendum entered by Urmila Briggs RPh 12/22/24 14:39: reviewed by [facility], comunicated with provider that pt stated he is not taking any medications but meds were left on med rec as nursing confirmed those medications. Original Note: Pharmacy Consult ? Medication Reconciliation Pharmacy has reviewed the medication reconciliation done by nursing. Spoke to patient to confirm med list. Patient was very hard to understand. He kept asking for peanut butter and crackers. He eventually said he was I'm not taking any medications . Nurse confirmed Divalproex sod DR 1,00 mg ,however last fill date was 09/26/24 for 30 days and Zofran ODT 4 mg , last filled 10/23/24 for 3 days.
--- NOTE | 2024-12-22 14:34 | PC.NURSE ---
Report given to PAMELA Dillon. Plan to move to Overflow bed 6. Patient is sleeping at this time. No acute distress.
--- NOTE | 2024-12-22 19:39 | PC.NURSE ---
Took over care from PAMELA Dillon, pt ambulated to bathroom with assist, pt given a second try, crackers, Ice cream and peanut butter, no sign of distress at this time, resting in bed eating
[2024-12-22] MEDS: Melatonin 3 MG TABLET 6 MG PO (19:59)
[2024-12-22] MEDS: oxyCODONE HCl Immed Release 5 MG TABLET PO (19:59)
--- NOTE | 2024-12-22 20:02 | PC.NURSE ---
pt continued to ask for food, has had to be redirected several times. medicated for pain management, after stating he had no pain
--- NOTE | 2024-12-22 20:31 | PC.NURSE ---
medicated per mar.
[2024-12-22] MEDS: Divalproex Sodium 500 MG TABLET.DR 1000 MG PO (21:33)
--- NOTE | 2024-12-22 21:39 | PC.NURSE ---
pt medicated per mar.
[2024-12-23] MEDS: HYDROmorphone HCl 1 MG/ML SYRINGE 0.5 MG IVPUSH ×4 (00:26→21:30)
[2024-12-23] MEDS: Lactated Ringers 1,000 ML 80 ML IVCONT ×2 (02:21→13:55)
[2024-12-23] MEDS: Piperacillin Sodium/Tazobactam 3.375 GM in 0.9 % Sodium Chloride 50 ML IV ×4 (02:22→21:24)
--- NOTE | 2024-12-23 02:25 | PC.NURSE ---
medicated pt per mar,
--- NOTE | 2024-12-23 05:02 | PC.NURSE ---
pt sleeping at this time.
[2024-12-23 05:21] LABS: MANUAL DIFF FLAG NO
[2024-12-23 05:24] LABS: Basophils Percent Auto 0.5 % (0-2); Eosinophils Absolute Auto 0.1 X10*3/uL (0.0-0.4); Eosinophils Percent Auto 1.5 % (0-4); Hematocrit 38.3 % (42.0-52.0); Imm Gran Abs Auto 0.03 X10*3/uL (0.00-0.03); Imm Gran Pct Auto 0.4 % (0.0-0.4); Lymphocytes Absolute Auto 2.2 X10*3/uL (1.2-4.9); Lymphocytes Percent Auto 26.6 % (20-40); Mean Corpuscular HGB Conc 31.3 g/dl (31.0-36.0); Mean Corpuscular Hemoglobin 23.5 pg (27.0-33.0); Mean Platelet Volume 9.1 fL (9.4-12.4); Monocytes Absolute Auto 0.9 X10*3/uL (0.1-1.2); Monocytes Percent Auto 11.2 % (2-11); Neutrophils Percent Auto 59.8 % (45-73); Platelet Count 307 X10*3/uL (160-400); Red Blood Count 5.11 X10*6/uL (4.60-5.80); Red Cell Distribution Width 17.5 % (11.0-16.0); White Blood Count 8.3 X10*3/uL (4.8-10.8)
[2024-12-23 05:52] VITALS: BP 124/78; PULSE 86; RESP 20; TEMP 37.1; O2SAT 100
--- NOTE | 2024-12-23 06:46 | PC.NURSE ---
pt oob assisted to bathroom.
--- NOTE | 2024-12-23 07:52 | PC.NURSE ---
Assumed care of pt at 0700. Pt resting in bed, a/ox3, respirations even and unlabored, no increased wob/sob noted, denies cp/dizziness/n/v. Pt NPO at this time- surgery consult ordered. Pt continuously expressing to this RN to go get him food. Pt educated on NPO status, pt became verbally abusive with staff- raising voice at staff/swearing. Call case within reach, all needs met at this time.
[2024-12-23 07:56] VITALS: BP 117/61; PULSE 98; RESP 18; TEMP 36.9; O2SAT 94
--- NOTE | 2024-12-23 08:33 | PM.PNGS ---
Subjective Subjective Date of Service: 12/23/24 Interval history: States he feels better No events overnight Hungry and has been asking for food No fever Physical Exam Vital Signs: Vital Signs: Last Vital Signs Temp 98.4 F 12/23/24 07:56 Pulse 98 12/23/24 07:56 Resp 18 12/23/24 07:56 BP 117/61 12/23/24 07:56 Pulse Ox 94 12/23/24 07:56 O2 Del Method Room Air 12/23/24 07:56 BMI result Body Mass Index 21.7 Const: General: comfortable and no acute distress Resp: Effort & Inspection: normal respiratory effort Cardio: Rate: regular rate GI: Palpation (GI): Soft to palpation : Other: I&D site on the perineum near the buttock open, no pus, some edema but no obvious fluctuance currently, no bleeding, no cellulitis Objective Data Active Medications Acetaminophen (Acetaminophen 325 Mg Tablet) 650 mg PO Q6H PRN PRN Reason: Pain, Mild 1-3,fever,headache Calcium Carbonate (Calcium Carbonate 750 Mg Tab.Chew) 750 mg PO Q4H PRN PRN Reason: Heartburn Divalproex Sodium (Divalproex Sodium 500 Mg Tablet.Dr) 1,000 mg PO BID [facility] Last Admin: 12/22/24 21:33 Dose: 1,000 mg Documented By: VIKASH Hydromorphone HCl (Hydromorphone Hcl 1 Mg/Ml Syringe) 0.5 mg IVPUSH Q4H PRN; Protocol PRN Reason: Pain, Severe (Pain Scale 7-10) Last Admin: 12/23/24 00:26 Dose: 0.5 mg Documented By: VIKASH Lactated Ringer's (Lr) 1,000 mls @ 80 mls/hr IVCONT .[id number] [facility] Last Admin: 12/23/24 02:21 Dose: 80 mls/hr Documented By: VIKASH Piperacillin Sod/Tazobactam (Sod 3.375 gm/ Sodium Chloride) 50 mls @ 100 mls/hr IV Q6H [facility] Last Infusion: 12/23/24 05:00 Dose: Infused Documented By: VIKASH Magnesium Hydroxide (Milk Of Magnesia 30 Ml Oral.Susp) 30 ml PO DAILY PRN PRN Reason: Constipation Melatonin (Melatonin 3 Mg Tablet) 6 mg PO BEDTIME PRN PRN Reason: Insomnia Last Admin: 12/22/24 19:59 Dose: 6 mg Documented By: VIKASH Ondansetron HCl (Ondansetron Hcl 4 Mg/2 Ml Vial) 4 mg IVPUSH Q8H PRN PRN Reason: Nausea and Vomiting Oxycodone HCl (Oxycodone Hcl Immed Release 5 Mg Tablet) 5 mg PO Q4H PRN PRN Reason: Pain, Severe (Pain Scale 7-10) Last Admin: 12/22/24 19:59 Dose: 5 mg Documented By: VIKASH Sodium Chloride (0.9 % Sodium Chloride Flush 3 Ml Syringe) 3 ml IVFLUSH QSHIFT [facility] Last Admin: 12/23/24 00:26 Dose: Not Given Documented By: VIKASH Non-Admin Reason: IV Running Labs 12/23/24 03:51 12/22/24 09:17 Labs: Laboratory Results - last 24 hr 12/22/24 12/22/24 12/23/24 09:17 11:58 03:51 MCV 73.2 L 75.0 L MCH 23.7 L 23.5 L MCHC 32.4 31.3 RDW 17.3 H 17.5 H Plt Count 352 307 MPV 8.5 L 9.1 L Immature Gran % (Auto) 0.6 H 0.4 Neut % (Auto) 67.8 59.8 Lymph % (Auto) 20.6 26.6 Graves % (Auto) 9.8 11.2 H Eos % (Auto) 1.0 1.5 Baso % (Auto) 0.2 0.5 Lymph # (Auto) 2.7 2.2 Graves # (Auto) 1.3 H 0.9 Eos # (Auto) 0.1 0.1 Baso # (Auto) 0.0 0.0 Abs Immat Gran (auto) 0.08 H 0.03 Absolute Neuts (auto) 8.8 H 5.0 Absolute Nucleated RBC 0.000 0.000 Nucleated RBC % (auto) 0.0 0.0 ESR 9 Anion Gap 11 L Estim Creat Clear Calc 130.3 Estimated GFR > 60 Random Glucose 121 H Lactic Acid 1.9 Calcium 9.3 Magnesium 1.8 Total Bilirubin 0.2 Direct Bilirubin < 0.2 AST 26 ALT 20 Alkaline Phosphatase 85 C-Reactive Protein 1.18 H Total Protein 7.8 Albumin 4.0 Urine Color Yellow Urine Appearance Clear Urine pH 7.5 Ur Specific [place] >= 1.030 H Urine Protein Negative Urine Glucose (UA) Negative Urine Ketones Negative Urine Blood Negative Urine Nitrite Negative Ur Leukocyte Esterase Negative Urine Opiates Screen POSITIVE H Ur Buprenorphine Scrn Not Detected Ur Oxycodone Screen Not Detected Urine Methadone Screen Not Detected Urine Fentanyl Screen Not Detected Ur Barbiturates Screen Not Detected Ur Phencyclidine Scrn Not Detected Ur Amphetamines Screen POSITIVE H U Benzodiazepines Scrn Not Detected Urine Cocaine Screen Not Detected U Marijuana (THC) Screen Not Detected Microbiology Microbiology Results: Microbiology 12/22/24 13:01 Gram Stain - Final Perineum Procedures Date of Service Date of Service: 12/23/24 Progress Note: A&P Assessment and plan (1) Cellulitis of perineum: Status: Acute Assessment and Plan: I&D site open, no scanty drainage No obvious fluctuance Some edema on the area, no cellulitis No surgical intervention planned Okay to have p.o. intake We will continue to follow in case he develops an abscess Not a diabetic Time Spent With Patient Time: Total time managing care of this patient today ____ minutes. Quality Stroke Does the patient have a stroke diagnosis?: No VTE Prior VTE?: No VTE Risk Level:: Medical - low VTE Device Contraindication: N/A - Device Ordered VTE Drug Contraindication: Treatment Not Indicated
--- NOTE | 2024-12-23 08:46 | PC.NURSE ---
Pt refused morning Depakote- pt educated on need to take medication/what it's used for. Pt stated I ain't taking that shit. Provider made aware.
[2024-12-23 10:23] VITALS: RESP 22
[2024-12-23 15:14] VITALS: BP 131/95; PULSE 105; RESP 20; TEMP 36.1; O2SAT 100
[2024-12-23 19:11] VITALS: BP 102/58; PULSE 91; RESP 18; TEMP 36.6; O2SAT 97
--- NOTE | 2024-12-23 20:08 | MHC.PIE ---
p;staff reports pt asleep in room with vape on bed. i; security notified, vape taken to security e; pt in room now ordering food from restaurants, note; pt on regular diet, will cont to monitor
[2024-12-23] MEDS: Melatonin 3 MG TABLET 6 MG PO (21:25)
[2024-12-23 22:57] VITALS: BP 131/83; PULSE 100; RESP 18; TEMP 36.4; O2SAT 100
[2024-12-24] MEDS: Piperacillin Sodium/Tazobactam 3.375 GM in 0.9 % Sodium Chloride 50 ML IV (02:00)
[2024-12-24] MEDS: HYDROmorphone HCl 1 MG/ML SYRINGE 0.5 MG IVPUSH (02:10)
[2024-12-24 04:00] VITALS: BP 123/60; PULSE 98; RESP 18; TEMP 36.5; O2SAT 99
[2024-12-24] MEDS: Lactated Ringers 1,000 ML 80 ML IVCONT (05:35)
--- NOTE | 2024-12-24 06:58 | P.PNGS_ITS ---
Subjective Subjective Date of Service: 12/24/24 <Sashachristos PerezSebastien - Last Filed: 12/24/24 07:04> 01/01/25 <Ginger Murrieta PA-C - Last Filed: 01/01/25 09:57> Interval history: Patient reports feeling better this morning, and decreased amount of pain. Hungry and asking for breakfast. He did report some drainage from I+D site yesterday. <Secure MentemSebastien - Last Filed: 12/24/24 07:04> Physical Exam 2 Vital Signs: Vital Signs: Last Vital Signs Temp 97.7 F 12/24/24 04:00 Pulse 98 12/24/24 04:00 Resp 18 12/24/24 04:00 BP 123/60 12/24/24 04:00 Pulse Ox 99 12/24/24 04:00 O2 Del Method Room Air 12/24/24 04:00 BMI result Body Mass Index 21.7 <ithinksport - Last Filed: 12/24/24 07:04> Const: General: alert and awake <ithinksport - Last Filed: 12/24/24 07:04> Orientation/consciousness: patient oriented x3 <Matchalarmo - Last Filed: 12/24/24 07:04> Resp: Effort & Inspection: normal respiratory effort and able to speak in complete sentences <Matchalarmo - Last Filed: 12/24/24 07:04> Cardio: Rate: regular rate <ithinksport - Last Filed: 12/24/24 07:04> Rhythm: regular rhythm <ithinksport - Last Filed: 12/24/24 07:04> Peripheral pulses: radial pulses present <Matchalarmo - Last Filed: 12/24/24 07:04> Skin: Other: left perineum I+D site open, mild erythema, no pus or blood present. <Matchalarmo - Last Filed: 12/24/24 07:04> Neuro: General: patient oriented x3 <Matchalarmo - Last Filed: 12/24/24 07:04> Objective Data Active Medications Acetaminophen (Acetaminophen 325 Mg Tablet) 650 mg PO Q6H PRN PRN Reason: Pain, Mild 1-3,fever,headache Calcium Carbonate (Calcium Carbonate 750 Mg Tab.Chew) 750 mg PO Q4H PRN PRN Reason: Heartburn Divalproex Sodium (Divalproex Sodium 500 Mg Tablet.Dr) 1,000 mg PO BID [facility] Last Admin: 12/23/24 21:27 Dose: Not Given Documented By: RBE Non-Admin Reason: Patient Refused Hydromorphone HCl (Hydromorphone Hcl 1 Mg/Ml Syringe) 0.5 mg IVPUSH Q4H PRN; Protocol PRN Reason: Pain, Severe (Pain Scale 7-10) Last Admin: 12/24/24 02:10 Dose: 0.5 mg Documented By: KRISTOPHER Piperacillin Sod/Tazobactam (Sod 3.375 gm/ Sodium Chloride) 50 mls @ 100 mls/hr IV Q6H [facility] Last Infusion: 12/24/24 02:30 Dose: Infused Documented By: KRISTOPHER Magnesium Hydroxide (Milk Of Magnesia 30 Ml Oral.Susp) 30 ml PO DAILY PRN PRN Reason: Constipation Melatonin (Melatonin 3 Mg Tablet) 6 mg PO BEDTIME PRN PRN Reason: Insomnia Last Admin: 12/23/24 21:25 Dose: 6 mg Documented By: BRE Ondansetron HCl (Ondansetron Hcl 4 Mg/2 Ml Vial) 4 mg IVPUSH Q8H PRN PRN Reason: Nausea and Vomiting Oxycodone HCl (Oxycodone Hcl Immed Release 5 Mg Tablet) 5 mg PO Q4H PRN PRN Reason: Pain, Severe (Pain Scale 7-10) Last Admin: 12/22/24 19:59 Dose: 5 mg Documented By: VIKASH Sodium Chloride (0.9 % Sodium Chloride Flush 3 Ml Syringe) 3 ml IVFLUSH QSHIFT [facility] Last Admin: 12/24/24 06:15 Dose: Not Given Documented By: KRISTOPHER Non-Admin Reason: IV Running <Sasha Sebastien - Last Filed: 12/24/24 07:04> Labs CBC & Chem 7: 12/23/24 03:51 12/22/24 09:17 <Sasha Sebastien - Last Filed: 12/24/24 07:04> Microbiology Microbiology Results: Microbiology 12/22/24 09:18 Blood Culture - Preliminary Blood - Venous No growth after 24 hours. 12/22/24 09:17 Blood Culture - Preliminary Blood - Venous No growth after 24 hours. 12/22/24 13:01 Gram Stain - Final Perineum Routine Culture - Preliminary Staphylococcus aureus <Sasha Crowe - Last Filed: 12/24/24 07:04> Procedures Date of Service Date of Service: 12/24/24 <Sasha Crowe - Last Filed: 12/24/24 07:04> 01/01/25 <Ginger Murrieta PA-C - Last Filed: 01/01/25 09:57> Progress Note: A&P Assessment and plan (1) Cellulitis of perineum: Status: Acute <Sasha Altman Last Filed: 12/24/24 07:04> Assessment and Plan: I+D site of perineum is open with no scant discharge, patient reports being in less pain today. He has urinated, but no bowel movement. His appetite is strong and has been eating with no nausea or vomiting, ambulating by himself. Will continue zoysn, and assess for wound care. <Sasha Crowe - Last Filed: 12/24/24 07:04> I+D site of perineum is open with no scant discharge, patient reports being in less pain today. He has urinated, but no bowel movement. His appetite is strong and has been eating with no nausea or vomiting, ambulating by himself. Will continue zoysn, and assess for wound care. Assessment and plan by Sasha SHAH. Cellulitis improved. Encouraged to do warm soaks, cont oral abx. F/u as needed for wound care. <Ginger Murrieta PA-C - Last Filed: 01/01/25 09:57> Time Spent With Patient Time: Total time managing care of this patient today ____ minutes. <Sasha Crowe - Last Filed: 12/24/24 07:04> Quality Stroke Does the patient have a stroke diagnosis?: No <Sasha Crowe - Last Filed: 12/24/24 07:04> VTE Prior VTE?: No <Sasha Crowe - Last Filed: 12/24/24 07:04> VTE Risk Level:: Medical - low <Sashachristos Bonillao - Last Filed: 12/24/24 07:04> VTE Device Contraindication: N/A - Device Ordered <Sasha Sebastien - Last Filed: 12/24/24 07:04> VTE Drug Contraindication: Treatment Not Indicated <Sashachristos Crowe - Last Filed: 12/24/24 07:04>
[2024-12-24 07:34] VITALS: BP 111/59; PULSE 66; RESP 18; TEMP 36.6; O2SAT 100
--- NOTE | 2024-12-24 07:58 | P.PNGS_ITS ---
Subjective Subjective Date of Service: 12/24/24 Interval history: States he feels much better Mental status as baseline No fever overnight Pain much improved Physical Exam 2 Vital Signs: Vital Signs: Last Vital Signs Temp 97.8 F 12/24/24 07:34 Pulse 66 12/24/24 07:34 Resp 18 12/24/24 07:34 BP 111/59 L 12/24/24 07:34 Pulse Ox 100 12/24/24 07:34 O2 Del Method Room Air 12/24/24 07:34 BMI result Body Mass Index 21.7 Const: General: comfortable and no acute distress Resp: Effort & Inspection: normal respiratory effort Cardio: Rate: regular rate Back/Spine/Pelvis: Other: I&D site on the perianal/buttock area on the left still with some residual induration but much improved, he was significant cellulitis, some scanty discharge, less tender Objective Data Active Medications Acetaminophen (Acetaminophen 325 Mg Tablet) 650 mg PO Q6H PRN PRN Reason: Pain, Mild 1-3,fever,headache Calcium Carbonate (Calcium Carbonate 750 Mg Tab.Chew) 750 mg PO Q4H PRN PRN Reason: Heartburn Divalproex Sodium (Divalproex Sodium 500 Mg Tablet.Dr) 1,000 mg PO BID [facility] Last Admin: 12/23/24 21:27 Dose: Not Given Documented By: BRE Non-Admin Reason: Patient Refused Hydromorphone HCl (Hydromorphone Hcl 1 Mg/Ml Syringe) 0.5 mg IVPUSH Q4H PRN; Protocol PRN Reason: Pain, Severe (Pain Scale 7-10) Last Admin: 12/24/24 02:10 Dose: 0.5 mg Documented By: KRISTOPHER Piperacillin Sod/Tazobactam (Sod 3.375 gm/ Sodium Chloride) 50 mls @ 100 mls/hr IV Q6H [facility] Last Infusion: 12/24/24 02:30 Dose: Infused Documented By: KRISTOPHER Magnesium Hydroxide (Milk Of Magnesia 30 Ml Oral.Susp) 30 ml PO DAILY PRN PRN Reason: Constipation Melatonin (Melatonin 3 Mg Tablet) 6 mg PO BEDTIME PRN PRN Reason: Insomnia Last Admin: 12/23/24 21:25 Dose: 6 mg Documented By: BRE Ondansetron HCl (Ondansetron Hcl 4 Mg/2 Ml Vial) 4 mg IVPUSH Q8H PRN PRN Reason: Nausea and Vomiting Oxycodone HCl (Oxycodone Hcl Immed Release 5 Mg Tablet) 5 mg PO Q4H PRN PRN Reason: Pain, Severe (Pain Scale 7-10) Last Admin: 12/22/24 19:59 Dose: 5 mg Documented By: VIKASH Sodium Chloride (0.9 % Sodium Chloride Flush 3 Ml Syringe) 3 ml IVFLUSH [facility] Last Admin: 12/24/24 06:15 Dose: Not Given Documented By: KRISTOPHER Non-Admin Reason: IV Running Labs 12/23/24 03:51 12/22/24 09:17 Microbiology Microbiology Results: Microbiology 12/22/24 09:18 Blood Culture - Preliminary Blood - Venous No growth after 24 hours. 12/22/24 09:17 Blood Culture - Preliminary Blood - Venous No growth after 24 hours. 12/22/24 13:01 Gram Stain - Final Perineum Routine Culture - Preliminary Staphylococcus aureus Procedures Date of Service Date of Service: 12/24/24 Progress Note: A&P Assessment and plan (1) Cellulitis of perineum: Status: Acute Assessment and Plan: I&D done Much improved No fever Patient feels much better Culture shows staph aureus Okay to DC home on oral antibiotics Wound care - warm soaks frequently, dry dressings, hygiene Okay to follow up in the office on a p.r.n. basis Time Spent With Patient Time: Total time managing care of this patient today ____ minutes. Quality Stroke Does the patient have a stroke diagnosis?: No VTE Prior VTE?: No VTE Risk Level:: Medical - low VTE Device Contraindication: N/A - Device Ordered VTE Drug Contraindication: Treatment Not Indicated
--- NOTE | 2024-12-24 08:11 | PC.NURSE ---
Patient discharged by [facility] Borer[facility]urdo Aleman,had no complaints at the time of discharge
--- NOTE | 2024-12-24 08:24 | MHC.CM.PN ---
Patient dc'd home self care via private transport prior to CM assessment.
--- NOTE | 2024-12-25 11:11 | PM.DS ---
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 He reports he slipped and fell onto a piece of wood last night walking up the stairs in his apartment building. He states the piece of wood impaled his left buttock and he removed it, cleaned the area with an alcohol swab and went to bed. He reports worsening pain, swelling and redness in the area. He therefore came to the ED for evaluation. He denies fever or chills. Work up in the ED included CBC, BMP, LFTs which showed a mild leukocytosis of 13. CT scan pelvis showed inflammation/cellulitis of the left posterior perineum extending into the left gluteal crease with suggestion of a forming but not organized fluid collection in the left posterior perineum. He was given tetanus vaccine in the ED. HOSPITAL COURSE: He was admitted to the surgical service for further treatment of the perineal cellulitis. On exam there was a fluctuant area with some drainage from the puncture wound. It was recommended to proceed with I&D at bedside and to be admitted to the hospital for IV abx and he agreed. See separate procedure note. The I&D had some purulent drainage but more sanguineous suggesting possible hematoma of the area. He was started on IV zosyn. He felt improved symptomatically the following day. The cellulitic changes improved and there was no further fluctuance. Local wound care was continued. He remained inpatient for 2 days for IV abx. On the day of discharge, his pain was improved and the cellulitis was significantly improved with mild residual edema and induration and had scanty nonpurulent drainage. Packing was removed. He was instructed on wound care and recommended to do warm soaks frequently, dry dressings, good hygiene. He was discharged to home on 12/25/24 on a course of oral abx. He can follow up as needed. I&D cultures grew out MRSA following discharge. New script for doxycycline sent to pharmacy. Patient called and updated. Status at Discharge Functional status at discharge: independent ambulation Overall status at discharge: patient is progressing back to baseline Time Attestation Discharge Coordination Time (in mins): 30 Quality: Safe Use of Opioids Does Pt have an Active Cancer Diagnosis on the Problem List?: No Quality: Stroke Does the patient have a stroke diagnosis?: No Physical Exam Vital Signs: Vital Signs: Last Vital Signs Temp 97.8 F 12/24/24 07:34 Pulse 66 12/24/24 07:34 Resp 18 12/24/24 07:34 BP 111/59 L 12/24/24 07:34 Pulse Ox 100 12/24/24 07:34 O2 Del Method Room Air 12/24/24 07:34 BMI result Body Mass Index 21.7 Const: General: comfortable, no acute distress and alert Orientation/consciousness: patient oriented x3 Skin: Other: I&D site on the perianal/buttock area on the left still with some residual induration but much improved, nosignificant cellulitis, some scanty discharge, less tender Neuro: General: patient oriented x3 DS: Data Data Completed and Pending Completed studies during hospitalization [Text1]: Procedures Drainage of Spinal Canal, Percutaneous Approach, Diagnostic (09/11/24) Insertion of Endotracheal Airway into Trachea, Via Natural or Artificial Opening (09/11/24) Inspection of Spinal Canal, Percutaneous Approach (09/11/24) Introduction of Vasopressor into Peripheral Vein, Percutaneous Approach (09/11/24) Respiratory Ventilation, 24-96 Consecutive Hours (09/11/24) Discharge Plan Discharge Anticipated Discharge Date/Time: 12/24/24 09:36 Patient Disposition: Home, Self-Care Discharge Diagnosis: cellulitis Referrals: Real Hightower MD [Primary Care Provider] - 1 Week Klaus Hu MD [Physician] - 1 Week Discharge Medications: New amoxicillin-pot clavulanate 875-125 mg tablet 1 tab PO BID 10 Days Qty: 20 0RF Continued divalproex 500 mg Tablet,Delayed Release (Dr/Ec) 1,000 mg PO BID Qty: 120 0RF ondansetron 4 mg tablet,disintegrating 4 mg PO Q8H PRN (Reason: nausea and vomiting) Qty: 10 0RF No Action doxycycline hyclate 100 mg capsule 100 mg PO BID Qty: 10 0RF Discharge Orders: Discharge Order (Routine); Ordered 12/24/24 Ordered By: Klaus Hu Diet: Advance to usual diet Activity on Discharge: As tolerated Stand Alone Forms: Patient Portal Discharge page Print Language: Tajik Activity Restrictions/Additional Instructions: Follow up in office in a week. ([phone]) Dry dressing to wounds until they stop draining. Warm soaks/warm compresses to the area 3 times a day Call Your Doctor If: ? ? -Your temperature exceeds 101 F? ? ? -You experience excessive pain or swelling ? ? -You have an unexpected reaction to medication ? ? -You experience continued vomiting/nausea Care Plan Goals: Return to baseline health and resume normal activities following recovery period. Health Concerns: cellulitis of perineum Plan of Treatment: s/p I&D IV transitioned to oral antibiotics f/u in office for wound care Assessment: Improved Discharge Date/Time: 12/24/24 08:13
== END 2024-12-24 08:13 | disposition home or self-care (01) | DRG 364 ==
LOC: HO.ED 13:11 → HO.EDOVER 13:23 → HO.S3 12-23 13:10
PROVIDERS: Physician Assistant; Admitting Provider Physician Assistant Surgical; Emergency Provider Emergency Medicine; PCP Internal Medicine; Visit Provider Physician Assistant Surgical
DX: L02.215 Cutaneous abscess of perineum (principal); F15.10 Other stimulant abuse, uncomplicated; L03.315 Cellulitis of perineum; Z21 Asymptomatic human immunodeficiency virus [HIV] infection status; F20.9 Schizophrenia, unspecified; Z79.899 Other long term (current) drug therapy
CPT/HCPCS: 36415; 72193; 80048; 80076; 80307; 81003; 83605; 83735; 85025; 85652; 86140; 87040; 87070; 87077; 87186; 87205; 90715; 99221; 99285; J0692; J1171; J2003; J2060; J2270; J2543; J3370; J7120; Q9967

== ENCOUNTER → 2024-12-22 08:50 | Outpatient (BNV) | payer OTHER, SELFPAY | PROVIDERS: Emergency Provider Emergency Medicine; PCP Internal Medicine; Visit Provider Radiology Diagnostic Radiology | DX: S31.813A Puncture wound without foreign body of right buttock, initial encounter (principal); S31.823A Puncture wound without foreign body of left buttock, initial encounter | CPT/HCPCS: 72193 ==

== ENCOUNTER → 2024-12-22 13:17 | Outpatient (BNV) | payer OTHER, SELFPAY | PROVIDERS: Admitting Provider Physician Assistant Surgical; Emergency Provider Emergency Medicine; PCP Internal Medicine; Visit Provider Physician Assistant Surgical | DX: L03.315 Cellulitis of perineum (principal) | CPT/HCPCS: 10060; 99024; 99222 ==

== ENCOUNTER 2025-03-12 19:37 | Emergency (ER) | payer OTHER, SELFPAY ==
[2025-03-12 19:39] VITALS: BP 140/92; PULSE 117; O2SAT 99
[2025-03-12 19:46] VITALS: BP 154/90; PULSE 117; RESP 20; TEMP 36.4; O2SAT 100; BMI 22.4
--- NOTE | 2025-03-12 19:46 | ED.SKABFB ---
HPI - Skin/Abscess/Foreign Bdy General Chief complaint: Skin/Abscess/Foreign Body Stated complaint: R leg pain, due to getting tatted hx 2xdays Time Seen by Provider: 03/12/25 20:20 Source: patient Limitations: no limitations History of Present Illness ED Provider: Mckenzie Solorio PA-C HPI narrative: 24-year-old male with a history of substance abuse, pseudoseizures, schizophrenia, HIV not on HAART presents with right lower extremity infection x2 days. Patient states he developed a painful swelling over medial knee, that has increased in severity. Patient has developed redness, warmth, increased swelling and purulent discharge from the site. Patient denies inability to flex or extend the knee, no fevers. Related Data Previous Rx's ?Medication ?Instructions ?Recorded divalproex 500 mg tablet,delayed 1,000 mg (2 x 500 mg) PO BID #120 09/22/24 release tabs ondansetron 4 mg disintegrating 4 mg PO Q8H PRN nausea and 10/23/24 tablet vomiting #10 tabs amoxicillin 875 mg-potassium 1 tab PO BID 10 days #20 tabs 12/23/24 clavulanate 125 mg tablet doxycycline hyclate 100 mg capsule 100 mg PO BID #10 caps 12/28/24 doxycycline hyclate 100 mg capsule 100 mg PO BID #13 caps 03/12/25 Allergies Allergy/AdvReac Type Severity Reaction Status Date / Time No Known Allergies (No Known Allergy Verified 03/12/25 19:48 Allergies*) Review of Systems Review of Systems: Yes all other systems are reviewed and are negative Constitutional: Constitutional: Denies fatigue and Denies fever(s) Musculoskeletal: Musculoskeletal: Denies arthralgias and Reports joint swelling Integumentary/Breasts: Skin/Breast: Reports erythema and Reports wounds Endocrine: Endocrine: Denies fatigue PMFSH Past Medical History Attestation statement: The following information was validated with the patient. Medical History HIV (human immunodeficiency virus infection) Social History Social History Household Members: None Household Members Other:: sister assisted in answering questions as patient is sleepy Housing: Apartment Do you presently have visiting nurse or other home services: No Alcohol intake: current Alcohol intake frequency: holidays/special occasions only Comment: 1:1 Patient Tobacco Use Status: Never used Tobacco Second Hand Smoke Exposure: No Substance Use Type: Amphetamines Advance Directives: No Advance Directives Information Provided: Yes Physical Exam Vital Signs: Vital Signs: Last Vital Signs Temp 97.5 F 03/12/25 19:46 Pulse 117 H 03/12/25 19:46 Resp 20 03/12/25 19:46 BP 154/90 H 03/12/25 19:46 Pulse Ox 100 03/12/25 19:46 O2 Del Method Room Air 03/12/25 19:46 BMI result Body Mass Index 22.4 Const: Other: Alert Orientation/consciousness: patient oriented x3 Resp: Effort & Inspection: normal respiratory effort Cardio: Other: Normal peripheral perfusion Skin: Other: Warm dry no rash Neuro: General: patient oriented x3, gait normal, no focal motor deficits and CN's II-XI intact bilaterally Extrem: Other: Swelling over medial right knee with overlying erythema and warmth, there was a wound that is indurated with central fluctuance, draining purulent drainage. Patient able to flex and extend the knee Psych: Other: Calm cooperative Course Course Course Narrative: 03/12/251946 ELIZA José This is a Rapid Medical Examination (RME) performed by Manish Timmons PA-C in triage. Full HPI, ROS, assessment and treatment plan per primary provider in the Main ED. Hx: 24 yo M BIBA here for eval of RLE swelling x2 days. reports cut that began along the medial aspect of his right knee/thigh, now there area is red, swollen. painful to bend the right knee/ ambulate. denies any drainage from the area. no fever/chills. denies known insect bites. denies IVDU. Plan: labs Medications Administered Discontinued Medications Generic Name Dose Route Start Last Admin Trade Name Freq PRN Reason Stop Dose Admin Lidocaine/Epinephrine 10 ml 03/12/25 21:05 03/12/25 21:56 Lidocaine Hcl 1%/Epi 1:100,000 10 Ml Vial INFILTRATI 03/12/25 21:06 10 ml ONCE ONE Administration Midazolam HCl 2 mg 03/12/25 21:36 03/12/25 21:39 Midazolam Hcl 2 Mg/2 Ml Vial IM 03/12/25 21:37 2 mg ONCE ONE Administration Morphine Sulfate 4 mg 03/12/25 21:36 03/12/25 21:39 Morphine Sulfate 4 Mg/Ml Cartridge IM 03/12/25 21:37 4 mg ONCE ONE Administration Protocol Medical Decision Making Medical Decision Making [facility] Narrative: 24-year-old male with a history of substance abuse, pseudoseizures, schizophrenia, HIV not on HAART presents with right lower extremity infection x2 days. Patient states he developed a painful swelling over medial knee, that has increased in severity. Patient has developed redness, warmth, increased swelling and purulent discharge from the site. Patient denies inability to flex or extend the knee, no fevers. Problem: HIV, unclear if he started on HAART , psychiatric illness, substance abuse History: Per patient I have considered the following differential diagnoses: Cellulitis, purulent cellulitis, abscess, septic joint Plan: The patient has a superficial abscess that can be drained at bedside, I did viewed the site with bedside ultrasound. He does not have exam findings consistent with a septic joint. We will place on doxycycline. I have independently reviewed the following tests: Labs: Slight leukocytosis, not anemic, no electrolyte abnormality noted Lab Data 03/12/25 20:39 03/12/25 20:39 Labs: Lab Results 03/12/25 Range/Units 20:39 WBC 12.5 H (4.8-10.8) X10*3/uL RBC 4.73 (4.60-5.80) X10*6/uL Hgb 11.6 L (14.0-18.0) g/dl Hct 35.5 L (42.0-52.0) % MCV 75.1 L (80.0-98.0) fL MCH 24.5 L (27.0-33.0) pg MCHC 32.7 (31.0-36.0) g/dl RDW 18.8 H (11.0-16.0) % Plt Count 227 D (160-400) X10*3/uL MPV 8.5 L (9.4-12.4) fL Immature Gran % (Auto) 0.3 (0.0-0.4) % Neut % (Auto) 62.4 (45-73) % Lymph % (Auto) 27.4 (20-40) % Patrick % (Auto) 8.7 (2-11) % Eos % (Auto) 1.0 (0-4) % Baso % (Auto) 0.2 (0-2) % Lymph # (Auto) 3.4 (1.2-4.9) X10*3/uL Patrick # (Auto) 1.1 (0.1-1.2) X10*3/uL Eos # (Auto) 0.1 (0.0-0.4) X10*3/uL Baso # (Auto) 0.0 (0.0-0.2) X10*3/uL Abs Immat Gran (auto) 0.04 H (0.00-0.03) X10*3/uL Absolute Neuts (auto) 7.8 (2.0-8.3) x10*3/uL Absolute Nucleated RBC 0.000 (0.0-0.012) X10*3/uL Nucleated RBC % (auto) 0.0 (0.0-0.2) /100WBC Sodium 138 (135-145) mmol/L Potassium 3.5 (3.3-5.1) mmol/L Chloride 107 (96-108) mmol/L Carbon Dioxide 23 (22-29) mmol/L Anion Gap 12 (12-20) BUN 9 (9-16) mg/dL Creatinine 0.84 (0.5-1.4) mg/dL Estim Creat Clear Calc 133.3 Estimated GFR > 60 Random Glucose 104 (60-115) mg/dL Calcium 8.7 D (8.4-10.2) mg/dL Magnesium 1.8 (1.6-2.6) mg/dL Total Bilirubin 0.2 (0.0-1.0) mg/dL AST 20 (5-37) U/L ALT 18 (0-40) U/L Alkaline Phosphatase 69 (39-117) U/L Total Protein 7.7 (6.5-8.0) g/dL Albumin 4.1 (3.5-5.0) g/dL Procedures Abscess I/D Site: lower extremity Side (if applicable): right Sedation/analgesia: midazolam and other (morphine) Local Anesthetic: lidocaine 1% and with epi Amount of anesthesia used (mL): 5 Technique: incised with blade and ultrasound guided Amount of fluid expressed (mL): 5 Sent for culture/gram staining?: No Irrigation: No Packing used?: none Discharge Plan Discharge Clinical Impression: Abscess of skin or subcutaneous tissue, Cellulitis Patient Disposition: Home, Self-Care Instructions: Cellulitis (ED), Abscess Incision and Drainage (DC), Warm Compress or Soak (ED) Additional Instructions: You had an abscess that was drained. See home care instructions. Take the doxycycline as directed. Follow up with your primary care provider in a week for a wound check. Prescriptions: New doxycycline hyclate 100 mg capsule 100 mg PO BID Qty: 13 0RF No Action doxycycline hyclate 100 mg capsule 100 mg PO BID Qty: 10 0RF amoxicillin-pot clavulanate 875-125 mg tablet 1 tab PO BID 10 Days Qty: 20 0RF divalproex 500 mg Tablet,Delayed Release (Dr/Ec) 1,000 mg PO BID Qty: 120 0RF ondansetron 4 mg tablet,disintegrating 4 mg PO Q8H PRN (Reason: nausea and vomiting) Qty: 10 0RF Stand Alone Forms: Work/School Release Print Language: Telugu
--- NOTE | 2025-03-12 20:18 | PC.NURSE ---
patient knocked on triage door. stated his abscess was oozing . given gauze to cover area with. patient was then called fro lab work and patient refused to have labs down. requesting that staff drain abscess right at that time. patient then wheeled himself to the front door and security was called. patient wheeled himself back into waiting room and agreed to be cooperative with care.
--- OUTSIDE RECORDS SUMMARY | 2025-03-12 20:44 | XMS_ITS | Clinical Summary ---
Author Organization [facility] Address [address] [place] [id number] Care Team Providers Care [employer]et [employer] Name Role Phone Provider, Conversion MD Primary Care Provider Un available Allergies No known active allergies Medications bictegravir-emtr icitabine-tenofo vir (BIKTARVY) 50-200-25 mg tablet Take 1 tablet [...] (11/17/2021): Added automatically from request for surgery [id number] GI bleed 11/17/2021 Social History Tobacco Use Types Packs/Day Years Used Date Smoking Tobacco: Never Assessed Sex and Gender Information Value Date Recorded Sex Assigned at Not on file Legal Sex Male 8:58 AM EST Gender Identity Not on file Sexual Orientation Not on file Last Filed Vital Signs Vital Sign Reading Time Taken Comments Blood Pressure 130/78 11/25/2021 8:12 AM EST Pulse 110 11/25/2021 8:12 AM EST Temperature 37.1 C (98.7 F) 11/25/2021 8:12 AM EST Respiratory Rate 18 11/25/2021 8:12 AM EST [...] of 2 - PCV) 2017 Influenza Vaccine 04/16/2025 11/19/2018, , 06/12/2016, Additional history exists HIV Screening Completed 11/18/2021 Medical Devices Implanted Type Area Pss Delivery Professional Device Identifier Shelf Expiration Date Model / Serial / Lot Resolution Ultra Clip Implanted:Qty: 2 on 11/19/2021 by Abril Machado MD at [facility] [employer] [id number] / / Description:Not an implant. Charging purposes only. Abbie Procedures Procedure Name Priority Date/Time Associated Diagnosis Comments HIV-1 RNA VIRAL LOAD, QUANTITATIVE Routine 11/18/2021 12:15 PM EST from Last 3 Months or Most Recently Relevant to Health Maintenance Results * (ABNORMAL) HIV-1 RNA Viral Load, Quantitative (11/18/2021 12:15 PM EST) HIV-1 RNA (copies/mL) 291,728(H) <30 copies/mL 11/23/2021 2:59 PM EST [facility] HIV-1 RNA (log10) 5.46(H) <1.46 log copies/mL 11/23/2021 2:59 PM EST [facility] Interpretation Detected 11/23/2021 2:59 PM EST [facility] Comment:Performed by FDA elham roved [employer]pt[employer] TMA. Linear range is 30 to 10,000,000 copies/mL. HIV Genotyping is not recommended for viral loads below 2,000 copies/mL. Not FDA approved to diagnose HIV infection. Blood specimen (specimen) Plasma specimen / Unknown 11/18/2021 12:15 PM EST 11/18/2021 12:55 PM EST Shani Blankenship MD LAB BLOOD ORDERABLES Final Resu lt [facility] [address] [id number] from Last 3 Months or Most Recently Relevant to Health Maintenance Insurance [facility] Advance Directives * Full Code (Latest Code Status on File) Date Activated Date Inactivated Comments 11/17/2021 12:47 PM Healthcare Agents on File Name Relationship Healthcare Agent Relationship Communication Divya Cramer Adult sibling 4. Next of Kin (Spouse, Adult Child, Parent, Adult Sibling, Grandparent) Care Teams [employer] Relationship Specialty Start Date End Date Provider, MD Divya PCP - General 11/17/21
[2025-03-12 20:48] LABS: MANUAL DIFF FLAG NO
[2025-03-12 20:51] LABS: Basophils Percent Auto 0.2 % (0-2); Eosinophils Absolute Auto 0.1 X10*3/uL (0.0-0.4); Hematocrit 35.5 % (42.0-52.0); Hemoglobin 11.6 g/dl (14.0-18.0); Imm Gran Abs Auto 0.04 X10*3/uL (0.00-0.03); Imm Gran Pct Auto 0.3 % (0.0-0.4); Lymphocytes Absolute Auto 3.4 X10*3/uL (1.2-4.9); Lymphocytes Percent Auto 27.4 % (20-40); Mean Corpuscular HGB Conc 32.7 g/dl (31.0-36.0); Mean Corpuscular Hemoglobin 24.5 pg (27.0-33.0); Mean Corpuscular Volume 75.1 fL (80.0-98.0); Mean Platelet Volume 8.5 fL (9.4-12.4); Monocytes Absolute Auto 1.1 X10*3/uL (0.1-1.2); Monocytes Percent Auto 8.7 % (2-11); Neutrophils Absolute Auto 7.8 x10*3/uL (2.0-8.3); Neutrophils Percent Auto 62.4 % (45-73); Platelet Count 227 X10*3/uL (160-400); Red Blood Count 4.73 X10*6/uL (4.60-5.80); Red Cell Distribution Width 18.8 % (11.0-16.0); White Blood Count 12.5 X10*3/uL (4.8-10.8)
[2025-03-12 21:04] LABS: Alanine Aminotransferase 18 U/L (0-40); Albumin Level 4.1 g/dL (3.5-5.0); Alkaline Phosphatase 69 U/L (39-117); Anion Gap 12 (12-20); Aspartate Amino Transferase 20 U/L (5-37); Bilirubin Total 0.2 mg/dL (0.0-1.0); Blood Urea Nitrogen 9 mg/dL (9-16); Calcium 8.7 mg/dL (8.4-10.2); Carbon Dioxide 23 mmol/L (22-29); Chloride 107 mmol/L (96-108); Creatinine Clr Calc Pharmacy 133.3; Estimated Glomerular Filt Rate > 60; Glucose Random 104 mg/dL (60-115); Magnesium 1.8 mg/dL (1.6-2.6); Potassium 3.5 mmol/L (3.3-5.1); Sodium 138 mmol/L (135-145); Total Protein 7.7 g/dL (6.5-8.0)
[2025-03-12] MEDS: Morphine Sulfate 4 MG/ML CARTRIDGE IM (21:39)
[2025-03-12] MEDS: Midazolam HCl 2 MG/2 ML VIAL IM (21:39)
[2025-03-12] MEDS: Lidocaine HCl 1%/Epi 1:100,000 10 ML VIAL INFILTRATI (21:56)
[2025-03-13 00:33] VITALS: BP 0/0; PULSE 0; RESP 0; TEMP -17.7; TEMP 0; O2SAT 0
== END 2025-03-13 00:34 | disposition home or self-care (01) ==
PROVIDERS: Physician Assistant Medical; Emergency Provider Emergency Medicine Emergency Medical Services
DX: L02.415 Cutaneous abscess of right lower limb (principal); L03.115 Cellulitis of right lower limb; M79.661 Pain in right lower leg; F19.10 Other psychoactive substance abuse, uncomplicated; B20 Human immunodeficiency virus [HIV] disease; Z79.899 Other long term (current) drug therapy
CPT/HCPCS: 10060; 36415; 80053; 83735; 85025; 96372; 99282; 99284; J2004; J2250; J2270

== ENCOUNTER 2025-05-01 03:55 | Emergency (ER) | payer OTHER, SELFPAY ==
--- NOTE | ~2025-05-01 | XR_ITS ---
CLINICAL HISTORY: bilateral upper back pain with inspiration 1 view chest x-ray Comparison: 09/13/2024 Findings: No consolidation or effusion. Heart size is normal. No acute fracture. IMPRESSION: 1. No acute findings. This document has been electronically signed by: Archie Flores MD on 05/01/2025 06:19:40
[2025-05-01 03:58] VITALS: BP 122/69; PULSE 92; RESP 20; TEMP 36.6; O2SAT 97; BMI 23.7
--- NOTE | 2025-05-01 04:54 | ECG_ITS ---
Test Reason : BACK PAIN Blood Pressure : */* mmHG Vent. Rate : 97 BPM Atrial Rate : 97 BPM P-R Int : 114 ms QRS Dur : 84 ms QT Int : 330 ms P-R-T Axes : 74 78 49 degrees QTcB Int : 419 ms Normal sinus rhythm Normal ECG When compared with ECG of 15-Sep-2024 12:59, Vent. rate has increased by 49 bpm Nonspecific T wave abnormality no longer evident in Anterior leads Referred By: Zhanna Covington Electronically Signed By: Hemant Wong
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
[2025-05-01 05:23] LABS: Hematocrit 41.0 % (42.0-52.0); Hemoglobin 13.0 g/dl (14.0-18.0); Imm Gran Abs Auto 0.04 X10*3/uL (0.00-0.03); Imm Gran Pct Auto 0.5 % (0.0-0.4); Lymphocytes Absolute Auto 2.4 X10*3/uL (1.2-4.9); MANUAL DIFF FLAG NO; Mean Corpuscular HGB Conc 31.7 g/dl (31.0-36.0); Mean Corpuscular Hemoglobin 24.2 pg (27.0-33.0); Mean Corpuscular Volume 76.2 fL (80.0-98.0); NRBC Abs Auto 0.000 X10*3/uL (0.0-0.012); NRBC Pct Auto 0.0 /100WBC (0.0-0.2); Platelet Count 323 X10*3/uL (160-400); Red Blood Count 5.38 X10*6/uL (4.60-5.80); White Blood Count 7.3 X10*3/uL (4.8-10.8)
[2025-05-01 06:00] VITALS: BP 119/74; PULSE 96; RESP 16; TEMP 36.7; O2SAT 97
[2025-05-01 06:05] LABS: Alanine Aminotransferase 24 U/L (0-40); Albumin Level 3.7 g/dL (3.5-5.0); Alkaline Phosphatase 72 U/L (39-117); Anion Gap 12 (12-20); Aspartate Amino Transferase 28 U/L (5-37); Blood Urea Nitrogen 13 mg/dL (9-16); Calcium 8.3 mg/dL (8.4-10.2); Carbon Dioxide 22 mmol/L (22-29); Chloride 108 mmol/L (96-108); Creatinine Clr Calc Pharmacy 118.1; Estimated Glomerular Filt Rate > 60; Magnesium 1.6 mg/dL (1.6-2.6); Potassium 4.0 mmol/L (3.3-5.1); Sodium 138 mmol/L (135-145); Total Protein 7.2 g/dL (6.5-8.0)
[2025-05-01 06:56] VITALS: BP 119/74; PULSE 96; RESP 16; TEMP 36.7; O2SAT 97
== END 2025-05-01 06:58 | disposition home or self-care (01) ==
PROVIDERS: Emergency Provider Emergency Medicine
DX: M79.10 Myalgia, unspecified site (principal); F41.9 Anxiety disorder, unspecified; R07.9 Chest pain, unspecified; F15.90 Other stimulant use, unspecified, uncomplicated; Z21 Asymptomatic human immunodeficiency virus [HIV] infection status
CPT/HCPCS: 36415; 71045; 80048; 80076; 80307; 83735; 85025; 93005; 99283; 99284

== ENCOUNTER → 2025-05-01 04:54 | Outpatient (BNV) | payer OTHER, SELFPAY | PROVIDERS: Emergency Provider Emergency Medicine; Visit Provider Internal Medicine Cardiovascular Disease | DX: M54.9 Dorsalgia, unspecified (principal) | CPT/HCPCS: 93010 ==

== ENCOUNTER → 2025-05-01 04:54 | Outpatient (BNV) | payer OTHER, SELFPAY | PROVIDERS: Emergency Provider Emergency Medicine; Visit Provider Specialist | DX: M54.6 Pain in thoracic spine (principal) | CPT/HCPCS: 71045 ==

== ENCOUNTER 2025-05-14 08:33 | Emergency (ER) | payer OTHER, SELFPAY ==
[2025-05-14] VITALS (7 sets, daily range): BP systolic 124–135; BP diastolic 79–84; PULSE 84–105; RESP 13–19; TEMP 36.6–37.3; O2SAT 96–100; BMI 23.9
--- NOTE | ~2025-05-14 | CT_ITS ---
EXAMINATION: CT ABDOMEN AND PELVIS WITH CONTRAST CLINICAL INFORMATION: Abdominal pain, guarding COMPARISON: September 11, 2024 TECHNIQUE: Multidetector volumetric images were obtained from the superior aspect of the liver through the pubic symphysis following administration 85 mL of Omnipaque 350 intravenous contrast. Sagittal and coronal reformatted images were obtained on the technologist's workstation. Oral contrast: No This CT examination was performed using dose optimization techniques as appropriate, variously including the following: *Automated exposure control *Adjustment of mA and/or kV according to patient size (this includes techniques or standardized protocols for targeted exams where dose is matched to indication/reason for exam; i.e. extremities or head) *Use of iterative reconstruction technique DLP: 389 mGY*cm FINDINGS: LUNG BASES: The visualized lung bases are unremarkable. LIVER, GALLBLADDER, AND BILIARY TREE: The liver is normal in size, shape, and attenuation. No focal hepatic lesion or biliary ductal dilatation is present. The gallbladder is unremarkable with no evidence of radiopaque gallstones, gallbladder wall thickening, or obvious pericholecystic inflammatory changes. PANCREAS: Unremarkable. SPLEEN: Unremarkable. ADRENAL GLANDS: Unremarkable. KIDNEYS AND URETERS: The kidneys are normal in size, shape, and attenuation. No hydronephrosis, hydroureter, or calculi seen. No perinephric stranding. BLADDER: Unremarkable GASTROINTESTINAL TRACT: The small and large bowel are unremarkable. The appendix is again not clearly identified. ABDOMINAL WALL: No significant hernia is appreciated. LYMPH NODES: Shotty nodes are present at the ileocecal junction without adenopathy. VASCULAR: Unremarkable. PELVIC VISCERA: Unremarkable. OSSEOUS STRUCTURES: Unremarkable. CT/CT abdomen pelvis w IV con IMPRESSION: Examination is unremarkable. The appendix is not clearly identified on the current or prior study. No inflammatory changes are evident in the region of the cecum. Fleischner guidelines were followed. Electronically signed by: Terrell Gan MD 05/14/2025 10:34 AM EDT
--- NOTE | ~2025-05-14 | XR_ITS ---
EXAMINATION: XR CHEST CLINICAL INFORMATION: Chest pain COMPARISON: May 01, 2025 TECHNIQUE: Frontal view of the chest was obtained. FINDINGS: Lung volumes are low. Lungs are clear. Heart and mediastinal contours are unremarkable. XR/XR chest 1V IMPRESSION: No acute disease Electronically signed by: Terrell Gan MD 05/14/2025 10:14 AM EDT
--- NOTE | 2025-05-14 08:48 | ECG_ITS ---
Test Reason : chest pain Blood Pressure : */* mmHG Vent. Rate : 103 BPM Atrial Rate : 103 BPM P-R Int : 130 ms QRS Dur : 82 ms QT Int : 302 ms P-R-T Axes : 60 68 36 degrees QTcB Int : 395 ms Sinus tachycardia Otherwise normal ECG When compared with ECG of 01-May-2025 05:07, No significant change was found Referred By: Generic ED Physician Electronically Signed By: JUANITA MEEKS
[2025-05-14 09:15] LABS: MANUAL DIFF FLAG NO
--- NOTE | 2025-05-14 09:21 | ED.GENADULT ---
HPI - General Adult General Chief complaint: Abdominal Pain Stated complaint: vomiting blood Time Seen by Provider: 05/14/25 09:03 Source: patient Mode of arrival: ambulatory Limitations: no limitations History of Present Illness ED Provider: Dave Bermeo HPI narrative: 25 yold male with pmh of HIV, substance abuse, pseudoseizures presents to the ED for abdominal pain with nausea and vomiting since last night. He states last night having abdominal pain with green and yellow emesis was then became bright red. Patient thinks blood in urine. Patient denies any recent trauma or history of ulcers. Patient denies taking any NSAIDs every day. Related Data Previous Rx's ?Medication ?Instructions ?Recorded divalproex 500 mg tablet,delayed 1,000 mg (2 x 500 mg) PO BID #120 09/22/24 release tabs ondansetron 4 mg disintegrating 4 mg PO Q8H PRN nausea and 10/23/24 tablet vomiting #10 tabs amoxicillin 875 mg-potassium 1 tab PO BID 10 days #20 tabs 12/23/24 clavulanate 125 mg tablet doxycycline hyclate 100 mg capsule 100 mg PO BID #10 caps 12/28/24 doxycycline hyclate 100 mg capsule 100 mg PO BID #13 caps 03/12/25 acetaminophen 500 mg tablet 500 mg PO Q6H PRN fever or pain 05/01/25 #20 tabs cephalexin 500 mg capsule 500 mg PO QID #28 caps 05/14/25 Allergies Allergy/AdvReac Type Severity Reaction Status Date / Time No Known Allergies (No Known Allergy Verified 05/14/25 08:45 Allergies*) Review of Systems Review of Systems: Abdominal pain Yes all other systems are reviewed and are negative [facility] [place] Past Medical History Medical History Methamphetamine abuse HIV (human immunodeficiency virus infection) Social History Social History Household Members: None Household Members Other:: sister assisted in answering questions as patient is sleepy Housing: Apartment Do you presently have visiting nurse or other home services: No Alcohol intake: current Alcohol intake frequency: holidays/special occasions only Comment: 1:1 Patient Tobacco Use Status: Never used Tobacco Smoked in Last 30 Days: No Second Hand Smoke Exposure: No Use of substances other than those prescribed or required for medical reasons: No Substance Use Type: Amphetamines Advance Directives: No Advance Directives Information Provided: Yes Do you have a plan to hurt others: No Plan Physical Exam ED Vital Signs: Vital Signs - 24 hr 05/14/25 08:43 05/14/25 08:49 05/14/25 09:25 Temperature 97.8 F 97.8 F 99.1 F Pulse Rate 105 H 105 H Respiratory Rate 19 19 Blood Pressure 135/82 135/82 Pulse Oximetry 100 100 Oxygen Delivery Method Room Air Room Air 05/14/25 10:30 05/14/25 10:31 05/14/25 12:40 Temperature 98.6 F Pulse Rate 92 90 84 Respiratory Rate 14 13 18 Blood Pressure 135/79 135/79 124/84 Pulse Oximetry 99 100 96 Oxygen Delivery Method Room Air Room Air Room Air 05/14/25 12:51 Temperature 98.6 F Pulse Rate 84 Respiratory Rate 18 Blood Pressure 124/84 Pulse Oximetry 96 Oxygen Delivery Method Room Air BMI result Body Mass Index 23.9 Const General: cooperative, healthy appearing, comfortable, no acute distress, well developed, alert, awake and Physically active Orientation/consciousness: patient oriented x3 [facility] Head: Yes normal to inspection, Yes No palpable skull fracture present, Yes normocephalic and Yes atraumatic Throat: Yes posterior oropharynx normal, Yes tonsils normal and Yes uvula midline Eyes General: appearance normal, both eyes and all related structures Neck Neck: Yes normal visual inspection, Yes full ROM, Yes no lymphadenopathy, Yes no meningeal signs, Yes trachea midline, Yes supple, No anterior neck swelling and No tender Chest Chest palpation & inspection: normal inspection of the chest and normal palpation of entire chest wall Resp Effort & Inspection: normal respiratory effort and able to speak in complete sentences Auscultation: clear to auscultation bilaterally Cardio Jugular venous distension: no JVD Heart sounds: S1 normal heart sound present and S2 normal heart sound present GI Other: Rectal exam negative for melena, dark stool, right red blood, or abscess Inspection: Yes normal to inspection Palpation (GI): Soft to palpation, not firm, Tenderness to palpation present (GI) (Generalized), Guarding due to palpation present (GI) and not rigid General: Yes no CVA tenderness Back/Spine/Pelvis Back: no CVA tenderness and No back tenderness Skin General skin exam: no rashes or lesions noted, elasticity normal and turgor normal Neuro General: patient oriented x3, gait normal, tone normal, moves all extremities, Normal light touch and pain sensation, no meningeal signs, no focal motor deficits, CN's II-XI intact bilaterally and normal sensation to monofilament Extrem General: Yes normal to inspection, Yes full ROM and Yes capillary refill normal Psych Appearance: grossly normal, well kempt and not disheveled Medications Administered Discontinued Medications Generic Name Dose Route Start Last Admin Trade Name Renetta PRN Reason Stop Dose Admin Sodium Chloride 1,000 mls @ 999 mls/hr 05/14/25 09:18 05/14/25 11:14 Ns IV 05/14/25 10:18 Infused .Q1H1M STA Infusion Sodium Chloride 1,000 mls @ 999 mls/hr 05/14/25 09:18 05/14/25 11:14 Ns IV 05/14/25 10:18 Infused .Q1H1M STA Infusion Iohexol 100 ml 05/14/25 10:21 05/14/25 10:22 Iohexol 350 Mg/Ml 100 Ml Infus..Btl IV 05/14/25 10:22 85 ml ONCE ONE Administration Morphine Sulfate 4 mg 05/14/25 09:19 05/14/25 09:33 Morphine Sulfate 4 Mg/Ml Cartridge IVPUSH 05/14/25 09:20 4 mg ONCE ONE Administration Protocol Ondansetron HCl 4 mg 05/14/25 09:19 05/14/25 09:34 Ondansetron Hcl 4 Mg/2 Ml Vial IVPUSH 05/14/25 09:20 4 mg ONCE ONE Administration Pantoprazole Sodium 80 mg 05/14/25 09:19 05/14/25 09:33 Pantoprazole Sodium 40 Mg/10 Ml Vial IVPUSH 05/14/25 09:20 80 mg ONCE ONE Administration Medical Decision Making Medical Decision Making MDM Narrative: 25-year-old male presents to ED for abdominal pain vomiting blood, and bloody urine. Patient states last episode of vomiting with blood was last night. Patient states today no vomiting of blood but just abdominal pain. Patient is significantly tender. No residue blood in oral cavity. Rectal exam negative for black stool, hemorrhaging blood, bright red blood, or melena. Morphine, fluid, and Protonix ordered. Patient will be sent for imaging. 11:06am: Patient sleeping comfortablyi in bed and is no longer tachycardic. CAT scan negative for any acute etiologies just shows lymphadenopathy. UA shows UTI with slight blood white blood cell count leuko esterase 12;24PM: Patient would like to be discharged. Patient refused 2nd troponin. Patient explained risk of if he leaves without signs of troponin and other complications. Patient agreeable sign against medical advice. Patient states pain resolved. Blood white blood cell count and leuko esterase in urine indicates UTI possibly passed a stone although not seen on CAT scan. Patient states he passed a kidney stone 2 months ago and thinks probably had another passed kidney stone . Patient explained worrisome signs and informed to return to the ED immediately. Patient ate food and drank fluids. Differential Diagnosis Differential Diagnoses: The differential diagnosis associated with the presentation includes (Kidney stone, abdominal perforation, CT, GI bleed,) Admission/Observation Consideration of admission/observation: Escalation of care including admission/observation considered Lab Data MDM Lab Attestation statement: I reviewed the patient's lab results. 05/14/25 09:10 05/14/25 09:10 Labs: Lab Results 05/14/25 05/14/25 05/14/25 Range/Units 09:10 09:12 09:25 WBC 12.6 H (4.8-10.8) X10*3/uL RBC 5.32 (4.60-5.80) X10*6/uL Hgb 12.8 L (14.0-18.0) g/dl Hct 40.7 L (42.0-52.0) % MCV 76.5 L (80.0-98.0) fL MCH 24.1 L (27.0-33.0) pg MCHC 31.4 (31.0-36.0) g/dl RDW 17.2 H (11.0-16.0) % Plt Count 323 (160-400) X10*3/uL MPV 8.7 L (9.4-12.4) fL Immature Gran % (Auto) 0.3 (0.0-0.4) % Neut % (Auto) 66.4 (45-73) % Lymph % (Auto) 21.3 (20-40) % Porter % (Auto) 10.9 (2-11) % Eos % (Auto) 0.9 (0-4) % Baso % (Auto) 0.2 (0-2) % Lymph # (Auto) 2.7 (1.2-4.9) X10*3/uL Porter # (Auto) 1.4 H (0.1-1.2) X10*3/uL Eos # (Auto) 0.1 (0.0-0.4) X10*3/uL Baso # (Auto) 0.0 (0.0-0.2) X10*3/uL Abs Immat Gran (auto) 0.04 H (0.00-0.03) X10*3/uL Absolute Neuts (auto) 8.3 (2.0-8.3) x10*3/uL Absolute Nucleated RBC 0.000 (0.0-0.012) X10*3/uL Nucleated RBC % (auto) 0.0 (0.0-0.2) /100WBC PT 11.6 (10.9-12.4) SEC INR 1.0 (0.9-1.1) APTT 35.5 H (26.7-34.1) SEC Sodium 139 (135-145) mmol/L Potassium 3.9 (3.3-5.1) mmol/L Chloride 105 (96-108) mmol/L Carbon Dioxide 26 (22-29) mmol/L Anion Gap 12 (12-20) BUN 12 (9-16) mg/dL Creatinine 0.97 (0.5-1.4) mg/dL Estim Creat Clear Calc 114.3 Estimated GFR > 60 Random Glucose 88 (60-115) mg/dL Calcium 8.9 D (8.4-10.2) mg/dL Total Bilirubin 0.3 (0.0-1.0) mg/dL AST 21 (5-37) U/L ALT 28 (0-40) U/L Alkaline Phosphatase 77 (39-117) U/L Troponin I High Sens < 2.7 (<3.5-35.0) ng/L Total Protein 7.9 (6.5-8.0) g/dL Albumin 4.2 (3.5-5.0) g/dL Lipase 12 (8-78) U/L Urine Color Urine Appearance Urine pH (5.0-9.0) Ur Specific Mes[place] (1.005-1.025) Urine Protein (Neg-Trace) mg/dL Urine Glucose (UA) (Negative) mg/dL Urine Ketones (Negative) mg/dL Urine Blood (Negative) Urine Nitrite (Negative) Ur Leukocyte Esterase (Negative) Urine RBC (0-2) /HPF Urine WBC (0-5) /HPF Ur Squamous Epith Cells (0-2) /HPF Urine Bacteria (None Seen) Hyaline Casts (0-2) /LPF Stool Occult Blood NEGATIVE (NEGATIVE) Urine Opiates Screen (Not Detect) Ur Buprenorphine Scrn (Not Detect) ng/mL Ur Oxycodone Screen (Not Detect) ng/mL Urine Methadone Screen (Not Detect) ng/mL Urine Fentanyl Screen (Not Detect) Ur Barbiturates Screen (Not Detect) Ur Phencyclidine Scrn (Not Detect) Ur Amphetamines Screen (Not Detect) U Benzodiazepines Scrn (Not Detect) Urine Cocaine Screen (Not Detect) U Marijuana (THC) Screen (Not Detect) COVID-19 (MICHAEL) Negative (Negative) COVID-19 Clin Com See Note 05/14/25 Range/Units 10:46 WBC (4.8-10.8) X10*3/uL RBC (4.60-5.80) X10*6/uL Hgb (14.0-18.0) g/dl Hct (42.0-52.0) % MCV (80.0-98.0) fL MCH (27.0-33.0) pg MCHC (31.0-36.0) g/dl RDW (11.0-16.0) % Plt Count (160-400) X10*3/uL MPV (9.4-12.4) fL Immature Gran % (Auto) (0.0-0.4) % Neut % (Auto) (45-73) % Lymph % (Auto) (20-40) % Porter % (Auto) (2-11) % Eos % (Auto) (0-4) % Baso % (Auto) (0-2) % Lymph # (Auto) (1.2-4.9) X10*3/uL Porter # (Auto) (0.1-1.2) X10*3/uL Eos # (Auto) (0.0-0.4) X10*3/uL Baso # (Auto) (0.0-0.2) X10*3/uL Abs Immat Gran (auto) (0.00-0.03) X10*3/uL Absolute Neuts (auto) (2.0-8.3) x10*3/uL Absolute Nucleated RBC (0.0-0.012) X10*3/uL Nucleated RBC % (auto) (0.0-0.2) /100WBC PT (10.9-12.4) SEC INR (0.9-1.1) APTT (26.7-34.1) SEC Sodium (135-145) mmol/L Potassium (3.3-5.1) mmol/L Chloride (96-108) mmol/L Carbon Dioxide (22-29) mmol/L Anion Gap (12-20) BUN (9-16) mg/dL Creatinine (0.5-1.4) mg/dL Estim Creat Clear Calc Estimated GFR Random Glucose (60-115) mg/dL Calcium (8.4-10.2) mg/dL Total Bilirubin (0.0-1.0) mg/dL AST (5-37) U/L ALT (0-40) U/L Alkaline Phosphatase (39-117) U/L Troponin I High Sens (<3.5-35.0) ng/L Total Protein (6.5-8.0) g/dL Albumin (3.5-5.0) g/dL Lipase (8-78) U/L Urine Color Yellow Urine Appearance Cloudy Urine pH 7.0 (5.0-9.0) Ur Specific [place] 1.015 (1.005-1.025) Urine Protein 30 (1+) H (Neg-Trace) mg/dL Urine Glucose (UA) Negative (Negative) mg/dL Urine Ketones Negative (Negative) mg/dL Urine Blood Trace H (Negative) Urine Nitrite Negative (Negative) Ur Leukocyte Esterase Large (3+) H (Negative) Urine RBC 0-2 (0-2) /HPF Urine WBC >50 H (0-5) /HPF Ur Squamous Epith Cells 0-2 (0-2) /HPF Urine Bacteria 2+ (None Seen) Hyaline Casts 0-2 (0-2) /LPF Stool Occult Blood (NEGATIVE) Urine Opiates Screen POSITIVE H (Not Detect) Ur Buprenorphine Scrn Not Detected (Not Detect) ng/mL Ur Oxycodone Screen Not Detected (Not Detect) ng/mL Urine Methadone Screen Not Detected (Not Detect) ng/mL Urine Fentanyl Screen Not Detected (Not Detect) Ur Barbiturates Screen Not Detected (Not Detect) Ur Phencyclidine Scrn Not Detected (Not Detect) Ur Amphetamines Screen POSITIVE H (Not Detect) U Benzodiazepines Scrn Not Detected (Not Detect) Urine Cocaine Screen Not Detected (Not Detect) U Marijuana (THC) Screen Not Detected (Not Detect) COVID-19 (MICHAEL) (Negative) COVID-19 Clin Com Independent Interpretation I performed an independent interpretation of an: CT Scan Radiology Impression Discussion of test interpretation with radiology: I have reviewed the radiologist's reading. Independent Historian Clinical information obtained from an independent historian. 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 Blood in urine with white blood cell count and bacteria indicates possibly maybe you passed a stone although not seen on CAT scan. Return to the ED for any abdominal pain, chest pain, shortness of breath, coughing up blood, flank pain, fever, chills, weakness, dizziness, altered mental status, blood in urine, bloody stool, vomiting blood, or any other concerning symptoms. Ordering Physician: Dave Bermeo Date of Service: 05/14/25 Procedure(s): CT abdomen pelvis w IV con Accession Number(s): [id number] cc: Dave Bermeo; Physician,Unknown ~ Report Number: [id number]: Total DLP = 389.00 mGy-cm EXAMINATION: CT ABDOMEN AND PELVIS WITH CONTRAST CLINICAL INFORMATION: Abdominal pain, guarding COMPARISON: September 11, 2024 TECHNIQUE: Multidetector volumetric images were obtained from the superior aspect of the liver through the pubic symphysis following administration 85 mL of Omnipaque 350 intravenous contrast. Sagittal and coronal reformatted images were obtained on the technologist's workstation. Oral contrast: No This CT examination was performed using dose optimization techniques as appropriate, variously including the following: *Automated exposure control *Adjustment of mA and/or kV according to patient size (this includes techniques or standardized protocols for targeted exams where dose is matched to indication/reason for exam; i.e. extremities or head) *Use of iterative reconstruction technique DLP: 389 mGY*cm FINDINGS: LUNG BASES: The visualized lung bases are unremarkable. LIVER, GALLBLADDER, AND BILIARY TREE: The liver is normal in size, shape, and attenuation. No focal hepatic lesion or biliary ductal dilatation is present. The gallbladder is unremarkable with no evidence of radiopaque gallstones, gallbladder wall thickening, or obvious pericholecystic inflammatory changes. PANCREAS: Unremarkable. SPLEEN: Unremarkable. ADRENAL GLANDS: Unremarkable. KIDNEYS AND URETERS: The kidneys are normal in size, shape, and attenuation. No hydronephrosis, hydroureter, or calculi seen. No perinephric stranding. BLADDER: Unremarkable GASTROINTESTINAL TRACT: The small and large bowel are unremarkable. The appendix is again not clearly identified. ABDOMINAL WALL: No significant hernia is appreciated. LYMPH NODES: Shotty nodes are present at the ileocecal junction without adenopathy. VASCULAR: Unremarkable. PELVIC VISCERA: Unremarkable. OSSEOUS STRUCTURES: Unremarkable. CT/CT abdomen pelvis w IV con IMPRESSION: Examination is unremarkable. The appendix is not clearly identified on the current or prior study. No inflammatory changes are evident in the region of the cecum. Fleischner guidelines were followed. Electronically signed by: Terrell Gan MD 05/14/2025 10:34 AM EDT Prescriptions: New cephalexin 500 mg capsule 500 mg PO QID Qty: 28 0RF No Action doxycycline hyclate 100 mg capsule 100 mg PO BID Qty: 10 0RF amoxicillin-pot clavulanate 875-125 mg tablet 1 tab PO BID 10 Days Qty: 20 0RF acetaminophen 500 mg tablet 500 mg PO Q6H PRN (Reason: fever or pain) Qty: 20 0RF divalproex 500 mg Tablet,Delayed Release (Dr/Ec) 1,000 mg PO BID Qty: 120 0RF ondansetron 4 mg tablet,disintegrating 4 mg PO Q8H PRN (Reason: nausea and vomiting) Qty: 10 0RF doxycycline hyclate 100 mg capsule 100 mg PO BID Qty: 13 0RF Referrals: [facility] [Provider Group, Gastroenterology] - 2 days Referral Note: Resolved vomiting blood Clinical Impression: Acute UTI; Vomiting blood [facility] [Provider Group, Urology] - 2 days Referral Note: Blood in urine bacteria. Possibly passed kidney stone Stand Alone Forms: Against Medical Advice Interventions: ED Discharge Assessment Last Done: 05/14/25 12:51 Discharge Date/Time: 05/14/25 12:51 Print Language: Arabic
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
[2025-05-14 09:23] LABS: Hematocrit 40.7 % (42.0-52.0); Hemoglobin 12.8 g/dl (14.0-18.0); Imm Gran Abs Auto 0.04 X10*3/uL (0.00-0.03); Imm Gran Pct Auto 0.3 % (0.0-0.4); Lymphocytes Absolute Auto 2.7 X10*3/uL (1.2-4.9); Mean Corpuscular HGB Conc 31.4 g/dl (31.0-36.0); Mean Corpuscular Hemoglobin 24.1 pg (27.0-33.0); Mean Corpuscular Volume 76.5 fL (80.0-98.0); NRBC Abs Auto 0.000 X10*3/uL (0.0-0.012); NRBC Pct Auto 0.0 /100WBC (0.0-0.2); Platelet Count 323 X10*3/uL (160-400); Red Blood Count 5.32 X10*6/uL (4.60-5.80); White Blood Count 12.6 X10*3/uL (4.8-10.8)
[2025-05-14 09:23] LABS: INTERNATIONAL NORM RATIO 1.0 (0.9-1.1); Prothrombin Time 11.6 SEC (10.9-12.4)
[2025-05-14 09:26] LABS: Partial Thromboplastin Time 35.5 SEC (26.7-34.1)
[2025-05-14 09:29] LABS: Lipase 12 U/L (8-78)
[2025-05-14 09:30] LABS: COVID-19 Test Negative (Negative); IDNOW Serial# 55D5AD1C
[2025-05-14 09:31] LABS: Alanine Aminotransferase 28 U/L (0-40); Albumin Level 4.2 g/dL (3.5-5.0); Alkaline Phosphatase 77 U/L (39-117); Anion Gap 12 (12-20); Aspartate Amino Transferase 21 U/L (5-37); Blood Urea Nitrogen 12 mg/dL (9-16); Calcium 8.9 mg/dL (8.4-10.2); Carbon Dioxide 26 mmol/L (22-29); Chloride 105 mmol/L (96-108); Creatinine Clr Calc Pharmacy 114.3; Estimated Glomerular Filt Rate > 60; Potassium 3.9 mmol/L (3.3-5.1); Sodium 139 mmol/L (135-145); Total Protein 7.9 g/dL (6.5-8.0)
[2025-05-14 09:35] LABS: OBS Int Ctl Valid YES; OBS1 NEGATIVE (NEGATIVE)
[2025-05-14 09:48] LABS: Troponin-I High Sensitivity < 2.7 ng/L (<3.5-35.0)
[2025-05-14] MEDS: iohexoL 350 MG/ML 100 ML INFUS..BTL IV (10:22)
[2025-05-14 10:56] LABS: Appearance Urine Cloudy; Glucose Urine UA Negative (Negative); PH 7.0 (5.0-9.0); Specific Gravity - Urine 1.015 (1.005-1.025); UMIC TRIGGER UACC YES
[2025-05-14 11:01] LABS: UACC Culture Trigger YES
[2025-05-14 11:42] LABS: Cannabinoid Screen Urine Not Detected (Not Detect)
--- NOTE | 2025-05-14 12:39 | PC.NURSE ---
Pt is refusing repeat troponin, sts wants to leave.
== END 2025-05-14 12:51 | disposition left against medical advice (07) ==
PROVIDERS: Physician Assistant; Emergency Provider Emergency Medicine
DX: N39.0 Urinary tract infection, site not specified (principal); K92.0 Hematemesis; R10.9 Unspecified abdominal pain
CPT/HCPCS: 36415; 71045; 74177; 80053; 80307; 81001; 82272; 83690; 84484; 85025; 85610; 85730; 87086; 87088; 87186; 87635; 93005; 96361; 96374; 96375; 99285; J2270; J2405; J2470; Q9967

== ENCOUNTER → 2025-05-14 08:48 | Outpatient (BNV) | payer OTHER, SELFPAY | PROVIDERS: Emergency Provider Emergency Medicine; Visit Provider Radiology Diagnostic Radiology | DX: R10.9 Unspecified abdominal pain (principal); R07.9 Chest pain, unspecified | CPT/HCPCS: 71045; 74177 ==

== ENCOUNTER → 2025-05-14 08:48 | Outpatient (BNV) | payer OTHER, SELFPAY | PROVIDERS: Emergency Provider Emergency Medicine; Visit Provider Internal Medicine | DX: R00.0 Tachycardia, unspecified (principal) | CPT/HCPCS: 93010 ==

== ENCOUNTER 2025-05-24 14:05 | Emergency (ER) | payer OTHER, SELFPAY ==
--- NOTE | 2025-05-24 14:10 | ECG_ITS ---
Test Reason : CP Blood Pressure : */* mmHG Vent. Rate : 102 BPM Atrial Rate : 102 BPM P-R Int : 114 ms QRS Dur : 82 ms QT Int : 310 ms P-R-T Axes : 72 69 36 degrees QTcB Int : 404 ms Sinus tachycardia Otherwise normal ECG When compared with ECG of 14-May-2025 08:59, No significant change was found Referred By: Generic ED Physician Electronically Signed By: EDIS PETTY MD
[2025-05-24 14:15] VITALS: BP 146/67; PULSE 91; RESP 16; TEMP 37; O2SAT 97; BMI 23.6
--- NOTE | 2025-05-24 14:15 | ED_ITS ---
HPI - General Adult General Chief complaint: Chest Pain Stated complaint: chest pain, weak, dizziness Related Data Previous Rx's ?Medication ?Instructions ?Recorded divalproex 500 mg tablet,delayed 1,000 mg (2 x 500 mg) PO BID #120 09/22/24 release tabs ondansetron 4 mg disintegrating 4 mg PO Q8H PRN nausea and 10/23/24 tablet vomiting #10 tabs amoxicillin 875 mg-potassium 1 tab PO BID 10 days #20 tabs 12/23/24 clavulanate 125 mg tablet doxycycline hyclate 100 mg capsule 100 mg PO BID #10 c aps 12/28/24 doxycycline hyclate 100 mg capsule 100 mg PO BID #13 c aps 03/12/25 acetaminophen 500 mg tablet 500 mg PO Q6H PRN fever or pain 05/01/25 #20 tabs cephalexin 500 mg capsule 500 mg PO QID #28 caps 05/14 Allergies Allergy/AdvReac Type Severity Reaction Status Date / Time No Known Allergies (No Known Allergy Verified 05/24/25 14:17 Allergies*) [facility] Past Medical History Medical History Methamphetamine abuse HIV (human immunodeficiency virus infection) Social History Social History Household Members: None Household Members Other:: sister assisted in answering questions as patient is sleepy Housing: Apartment Do you presently have visiting nurse or other home services: No Alcohol intake: current Alcohol intake frequency: holidays/special occasions only Comment: 1:1 Patient Tobacco Use Status: Never used Tobacco Second Hand Smoke Exposure: No Substance Use Type: Amphetamines Advance Directives: No Advance Directives Information Provided: No Physical Exam ED Vital Signs: BMI result Body Mass Index 23.6 Course Course Course Narrative: Rapid medical examination performed in triage by Wanda Smith PA-C. Patient is a 25 year old assigned male at presenting to the emergency department with dizziness and nausea. Detailed physical exam and review of systems are deferred to the production assembler. EKG, labs, and swabs ordered. Patient placed back in the waiting room pending room availability and results. Patient left the department without completing treatment. Patient's limited physical exam performed in triage showed a non-toxic individual, ambulating without assistance, Alert and oriented. Medical Decision Making Lab Data 05/24/25 14:30 05/24/25 14:30 Labs: Lab Results 05/24/25 Range/Units 14:30 WBC 13.1 H (4.8-10.8) X10*3/uL RBC 4.97 (4.60-5.80) X10*6/uL Hgb 11.9 L (14.0-18.0) g/dl Hct 37.5 L (42.0-52.0) % MCV 75.5 L (80.0-98.0) fL MCH 23.9 L (27.0-33.0) pg MCHC 31.7 (31.0-36.0) g/dl RDW 16.0 (11.0-16.0) % Plt Count 369 (160-400) X10*3/uL MPV 8.2 L (9.4-12.4) fL Immature Gran % (Auto) 0.4 (0.0-0.4) % Neut % (Auto) 68.9 (45-73) % Lymph % (Auto) 22.6 (20-40) % Trigg % (Auto) 7.1 (2-11) % Eos % (Auto) 0.8 (0-4) % Baso % (Auto) 0.2 (0-2) % Lymph # (Auto) 3.0 (1.2-4.9) X10*3/uL Trigg # (Auto) 0.9 (0.1-1.2) X10*3/uL Eos # (Auto) 0.1 (0.0-0.4) X10*3/uL Baso # (Auto) 0.0 (0.0-0.2) X10*3/uL Abs Immat Gran (auto) 0.05 H (0.00-0.03) X10*3/uL Absolute Neuts (auto) 9.0 H (2.0-8.3) x10*3/uL Absolute Nucleated RBC 0.000 (0.0-0.012) X10*3/uL Nucleated RBC % (auto) 0.0 (0.0-0.2) /100WBC Sodium 138 (135-145) mmol/L Potassium 4.0 (3.3-5.1) mmol/L Chloride 107 (96-108) mmol/L Carbon Dioxide 26 (22-29) mmol/L Anion Gap 9 L (12-20) BUN 12 (9-16) mg/dL Creatinine 0.80 (0.5-1.4) mg/dL Estim Creat Clear Calc 138.6 Estimated GFR > 60 Random Glucose 94 (60-115) mg/dL Calcium 8.5 (8.4-10.2) mg/dL Magnesium 1.7 (1.6-2.6) mg/dL Total Bilirubin 0.2 (0.0-1.0) mg/dL AST 22 (5-37) U/L ALT 16 (0-40) U/L Alkaline Phosphatase 71 (39-117) U/L Troponin I High Sens < 2.7 (<3.5-35.0) ng/L Total Protein 7.5 (6.5-8.0) g/dL Albumin 4.0 (3.5-5.0) g/dL COVID-19 (MICHAEL) Negative (Negative) COVID-19 Clin Com See Note Influenza Type A (MIKE) Negative (Negative) Influenza Type B (MIEK) Negative (Negative) Influenza A & B Note See Note Discharge Plan Discharge Clinical Impression: Nausea Patient Disposition: Left W/O Completing Treatment Prescriptions: No Action doxycycline hyclate 100 mg capsule 100 mg PO BID Qty: 10 0RF amoxicillin-pot clavulanate 875-125 mg tablet 1 tab PO BID 10 Days Qty: 20 0RF acetaminophen 500 mg tablet 500 mg PO Q6H PRN (Reason: fever or pain) Qty: 20 0RF divalproex 500 mg Tablet,Delayed Release (Dr/Ec) 1,000 mg PO BID Qty: 120 0RF ondansetron 4 mg tablet,disintegrating 4 mg PO Q8H PRN (Reason: nausea and vomiting) Qty: 10 0RF doxycycline hyclate 100 mg capsule 100 mg PO BID Qty: 13 0RF cephalexin 500 mg capsule 500 mg PO QID Qty: 28 0RF Discharge Date/Time: 05/24/25 19:24
[2025-05-24 14:35] LABS: MANUAL DIFF FLAG NO
[2025-05-24 14:37] LABS: Hematocrit 37.5 % (42.0-52.0); Hemoglobin 11.9 g/dl (14.0-18.0); Imm Gran Abs Auto 0.05 X10*3/uL (0.00-0.03); Imm Gran Pct Auto 0.4 % (0.0-0.4); Lymphocytes Absolute Auto 3.0 X10*3/uL (1.2-4.9); Mean Corpuscular HGB Conc 31.7 g/dl (31.0-36.0); Mean Corpuscular Hemoglobin 23.9 pg (27.0-33.0); Mean Corpuscular Volume 75.5 fL (80.0-98.0); NRBC Abs Auto 0.000 X10*3/uL (0.0-0.012); NRBC Pct Auto 0.0 /100WBC (0.0-0.2); Platelet Count 369 X10*3/uL (160-400); Red Blood Count 4.97 X10*6/uL (4.60-5.80); White Blood Count 13.1 X10*3/uL (4.8-10.8)
[2025-05-24 14:52] LABS: Alanine Aminotransferase 16 U/L (0-40); Albumin Level 4.0 g/dL (3.5-5.0); Alkaline Phosphatase 71 U/L (39-117); Anion Gap 9 (12-20); Aspartate Amino Transferase 22 U/L (5-37); Blood Urea Nitrogen 12 mg/dL (9-16); Calcium 8.5 mg/dL (8.4-10.2); Carbon Dioxide 26 mmol/L (22-29); Chloride 107 mmol/L (96-108); Creatinine Clr Calc Pharmacy 138.6; Estimated Glomerular Filt Rate > 60; Magnesium 1.7 mg/dL (1.6-2.6); Potassium 4.0 mmol/L (3.3-5.1); Sodium 138 mmol/L (135-145); Total Protein 7.5 g/dL (6.5-8.0)
[2025-05-24 14:54] LABS: COVID-19 Test Negative (Negative); IDNOW Serial# 55D5AD1C; IDNOW Serial# 58CA691E; Influenza B2 Negative (Negative)
[2025-05-24 14:57] LABS: Troponin-I High Sensitivity < 2.7 ng/L (<3.5-35.0)
--- OUTSIDE RECORDS SUMMARY | 2025-05-24 16:59 | XMS_ITS ---
Author Name [facility] Organization Unknown Encounters Encounter Type Encounter Reason Primary Diagnosis Location Date Inpatient Hemorrhage of an us and rectum [facility] 11/17/[address] [employer] 11/17/2021 Care Team Organization Name Specialty Phone Email Start Date End Da te [facility] Termed, PROVIDER Primary Care 03/21/202304/16 [facility] [employer] 11/17/2021 05/04/2024 [facility] NOT FILE Primary Care 11/17/2021 11/17/2021
--- OUTSIDE RECORDS SUMMARY | 2025-05-24 16:59 | XMS_ITS | Clinical Summary ---
Author Organization [facility] Address [address] [place] [phone] Phone Care Team Providers Care Talent Acquisition Associate Name Role Phone Real Hightower MD Primary Care Provider [phone] Allergies No known active allergies Medications acetaminophen (TYLENOL) 500 mg tablet Take 2 tablets (1,000 mg total) by mouth every 6 (six) hours if needed. 4 Active Symtuza [phone] mg per tablet Take 1 tablet by mouth 1 (one) time each day. with food Active Banophen 25 mg capsule Take 2 capsules (50 mg total) by mouth 3 (three) times a day if needed for itching or allergies. 4 Active meloxicam (Mobic) 7.5 mg tablet Take 1 tablet (7.5 mg total) by mouth 1 (one) time each day if needed for moderate pain. 30 each 1 5 10/08/19 26 Active Additional Information Patient not taking.Reported on 02/23/2025 mirtazapine (REMERON) 15 mg tablet Take 1 tablet (15 mg total) by mouth 1 (one) time each day. 90 each 1 5 08/22/20 25 Active melatonin 10 mg tablet Take 1 tablet (10 mg total) by mouth at bedtime as needed for sleep. 30 tablet 3 5 08/22/20 25 Active Active Problems Problem Noted Date Diagnosed Date Attention deficit disorder of adult with hyperac tivity 09/24/2024 Cocaine use disorder ([facility] V24, [facility] V28) 09/24/2024 Colitis 09/24/2024 HIV disease ([facility] V24, [facility] V28) STD (sexually transmitted disease) 09/24/2024 Depression 09/24/2024 Psychiatric problem 07/10/2024 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[facility] V24, [facility] V28) 07/2022 PTSD (post-traumatic stress disorder) 11/24/2021 Schizophrenia ([facility] V24, [facility] V28) 022 GI bleed 11/17/2021 Rectal bleeding 11/17/2021 Overview (09/24/2024): Added automatically from request for surgery [id number] HIV (human immunodeficiency virus infection) ([facility] V24, [facility] V28) 10/08/2018 Marijuana use 11/05/2017 Depression Overview (07/21/2024): DX:Depression Marijuana use Overview (07/21/2024): DX:Marijuana use 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[facility] V24) Encounters Date Type Department Care Team Description 05/11/2025 1:00 PM EDT Office Visit [facility] Hematology Oncology [address] [place] [phone] Keke Fish PA Normocytic anemia 03/12/2025 Telephone Internal Medicine [facility] [address] [phone] Real Hightower MD 03/12/2025 Telephone Internal Medicine [facility] [address] [phone] Real Hightower MD 03/12/2025 Telephone Internal Medicine [facility] [address] [phone] Real Hightower MD 02/23/2025 1:00 PM EDT Office Visit Internal Medicine [facility] [address] [phone] Real Hightower MD Hospital discharge follow-up (Primary Dx); HIV disease ([facility] V24, [facility] V28); Psychiatric problem; Orbit fracture, left, closed, initial encounter ([facility] V24, [facility] V28); Seizure cerebral ([facility] V24, [facility] V28) from Last 3 Months Immunizations Name Administration [...] use 11/05/2017 DX:Marijuana use Depression DX:Depression Seizures ([facility] V24, [facility] V28) Family History Medical History Relation Name Comments Diabetes Father Hypertension Father Bipolar disorder Mother Diabetes Mother Hypertension Mother Diabetes Sister Diabetes Uncle Hypertension Uncle Relation Name Status Comments Father Alive Mother Alive Sister Alive Uncle Social History Tobacco Use Types Packs/Day Years Used Date Smoking Tobacco: Never Smokeless Tobacco: Never Tobacco Cessation:Counseling Given: Not Answered Alcohol Use Standard Drinks/Week Comments Yes 0 (1 standard drink = 0.6 oz pur e alcohol) Sex and Gender Information Value Date Recorded Sex Assigned at Not on file Legal Sex Male 11:19 AM EST Gender Identity Not on file Sexual Orientation Not on file Obstetrics History Last Filed Vital Signs Vital Sign Reading Time Taken Comments Blood Pressure 135/83 05/11/2025 1:31 PM EDT Pulse 109 05/11/2025 1:31 PM EDT Temperature 37.3 C (99.2 F) 05/11/2025 1:31 PM EDT Respiratory Rate 20 07/21/2024 10:06 PM EST Oxygen Saturation 100% 05/11/2025 1:31 PM EDT Inhaled Oxygen Concentration - - Weight 73.5 kg (162 lb) 05/11/2025 1:31 PM EDT Height 170.4 cm (5' 7.1 ) 05/11/2025 1:31 PM EDT Body Mass Index 25.3 05/11/2025 1:31 PM EDT Plan of Treatment Upcoming Encounters Date Type Department Care Team (Late st Contact Info) Description 05/31/2025 11:00 AM EDT Consult [facility] [place] [address] [facility] [address] [place] [phone] Julianne Hillman MD [address] [place] [phone] 06/02/2025 3:30 PM EDT Consult Infectious Disease - [place] 175 [facility] [address] [place] [phone] Shahrzad Law MD 175 [facility] [address] [place] [address] Health Maintenance Due Date Last Done Comments COVID-19 Vaccine (#1) 2003 Meningococcal ACWY Vaccine (2 - Risk 2-dose series) 01/06/2016 11/11/2015 MMR Vaccines (1 of 2 - Risk 2-dose series) 2016 Hepatitis B Vaccines (1 of 3 - 19+ 3-dose series) 2017 Pneumococcal Vaccine: Pediatrics (0 to 5 Years) and At-Risk Patients (6 to 49 Years) (2 of 2 - PPSV23) 01/14/2019 11/19/2018 Social Influencers of Health Screening 08/20/2021 HPV Vaccines (3 - Risk male 3-dose series) 08/16/2024 04/16/2024, 11/19/2018 Depression Screening 09/16/2024 Influenza Vaccine (#1) 2025 9, 08/13/2018, 06/12/2016, Additional history exists Cholesterol Screening (Lipid Panel) 01/06/2030 01/06/2025, 02/11/2018 DTaP,Tdap,and Td Vaccines (4 - Td or Tdap) 12/22/2034 12/22/2024, 11/19/2018, 08/13/2018 Hepatitis A Vaccines Completed 09/25/2018, 11/11/19 16 Hepatitis C Screening Completed 01/06/2025, 019 HIB Vaccines Aged Out No longer eligi [...] Priority Date/Time Associated Diagnosis Comments HEPATITIS C ANTIBODY Routine 01/06/2025 12:49 PM EDT Seizures ([facility] V24, [facility] V28) Gall stones PTSD (post-traumatic stress disorder) Preventative health care Possible exposure to STD LIPID PANEL WITH REFLEX TO DIRECT LDL Routine 01/06/2025 12:49 PM EDT Seizures ([facility] V24, [facility] V28) Gall stones PTSD (post-traumatic stress disorder) Preventative health care Possible exposure to STD from Last 3 Months or Most Recently Relevant to Health Maintenance Results * (ABNORMAL) Hepatitis C antibody (01/06/2025 12:49 PM EDT) Hepatitis C Antibody Positive (A) Negative LAB CHEMISTRY METHOD 01/06/2025 4:52 PM EDT [facility] Comment:If confirmation of t his positive HCV Ab screening test is needed, please redraw and order HCV Viral Load. Note--> This test may not be added on due to different specimen requirements. Blood Venous blood specimen / Unknown Venipuncture / Unknown 01/06/2025 12:49 PM EDT 01/06/2025 1:47 PM EDT us Real Hightower MD LAB BLOOD ORDERABLES Final Resul t [facility] [address] [place] [address], [place] [phone] * (ABNORMAL) Lipid panel with reflex to direct LDL (01/06/2025 12:49 PM EDT) Cholesterol 107 0 - 200 mg/dL LAB CHEMISTRY METHOD 01/06/2025 3:08 PM EDT [facility] Triglycerides 90 0 - 150 mg/dL LAB CHEMISTRY METHOD 01/06/2025 3:08 PM EDT [facility] HDL 36(L) >=40 mg/dL LAB CHEMISTRY METHOD 01/06/2025 3:08 PM EDT [facility] LDL Calculated 53 0 - 100 mg/dL LAB CHEMISTRY METHOD 01/06/2025 3:08 PM EDT [facility] VLDL Cholesterol Jacob 18 mg/dL LAB CHEMISTRY METHOD 01/06/2025 3:08 PM EDT [facility] Non HDL Chol. (LDL+VLDL) 71 <145 mg/dL LAB CHEMISTRY METHOD 01/06/2025 3:08 PM EDT [facility] Chol/HDL Ratio 3.0 0.0 - 4.4 LAB CHEMISTRY METHOD 01/06/2025 3:08 PM EDT [facility] Blood Venous blood specimen / Unknown Venipuncture / Unknown 01/06/2025 12:49 PM EDT 01/06/2025 1:47 PM EDT us Real Hightower MD LAB BLOOD ORDERABLES Final Resul t [facility] [address] [place] [address], [place] [phone] from Last 3 Months or Most Recently Relevant to Health Maintenance Insurance [facility] [employer] Care Teams Talent Acquisition Associate Relationship Specialty Start Date End Date Real Hightower MD 175 [facility] [address] [place] [address] PCP - General 02/22/23
--- OUTSIDE RECORDS SUMMARY | 2025-05-24 16:59 | XMS_ITS | Clinical Summary ---
Author Organization [employer] Address [address] [facility] [address] [place] [address] Care Team Providers Care Pens And Pencils Dipper Name Role Phone Unavailable Primary Care Provider [...] Date Last Done Comments Depression Screening 1998 Disability Screening 1998 Alcohol/Substance Use Screening 2010 Tobacco Screening 2010 Family Planning (PISQ) 2013 HPV Vaccines (1 - Male 3-dos e series) 2013 DTaP/Tdap/Td Vaccines (1 - Tdap) 2017 Hepatitis B Vaccines (1 of 3 - 19+ 3-dose series) 2017 COVID-19 Vaccine (1 - 2023-2 5 season) 2025 Influenza Vaccine (#1) 2025 Zoster Vaccines (1 of 2) 2048 RSV [...] Years) and At-Risk Patients (6 to 49) Years Aged Out No longer eligible b ased on patient's age to complete this topic RSV under 20 months Aged Out No longe r eligible based on patient's age to complete this topic Rotavirus Vaccines Aged Out No longer eligible based on patient's age to complete this topic
--- OUTSIDE RECORDS SUMMARY | 2025-05-24 16:59 | XMS_ITS | Encounter Summary ---
Author Organization [employer] Address [address] [facility] [address] [place] [address] Care Team Providers Care Work Over Rig Operator Name Role Phone Unavailable Primary Care Provider [...]
--- OUTSIDE RECORDS SUMMARY | 2025-05-24 16:59 | XMS_ITS | Clinical Summary ---
Author Organization [facility] Address [address] [place] [id number] Care Team Providers Care Gravel Roofer Name Role Phone Provider, Conversion MD Primary [...] (11/17/2021): Added automatically from request for surgery [id number] GI bleed 11/17/2021 Social History Tobacco Use [...] Virus Screening 1998 COVID-19 Vaccine (#1) 2003 DTaP/Tdap/Td Vaccines (1 - Tdap) 2017 Hepatitis B Vaccines (1 of 3 - 19+ 3-dose series) 2017 Pneumococcal Vaccine: Pediat ann (0-5 Years) and At-Risk Patients (6 to 49 Years) (1 of 2 - PCV) 2017 HPV Vaccines (1 - Risk 3-dos e SCDM series) 2025 Influenza Vaccine 04/16/2025 11/19/2018, , 06/12/2016, Additional history exists HIV Screening Completed 11/18/2021 Medical Devices Implanted Type Area Locksmith Apprentice Device Identifier Shelf Expiration Date Model / Serial / Lot Resolution Ultra Clip Implanted:Qty: 2 on 11/19/2021 by Abril Machado MD at [facility] Fiiiling [id number] / / Description:Not an implant. Charging purposes only. Abbie Procedures Procedure Name Priority Date/Time Associated Diagnosis Comments HIV-1 RNA VIRAL LOAD, QUANTITATIVE Routine 11/18/2021 12:15 PM EST from Last 3 Months or Most Recently Relevant to Health Maintenance Results * (ABNORMAL) HIV-1 RNA Viral Load, Quantitative (11/18/2021 12:15 PM EST) HIV-1 RNA (copies/mL) 291,728(H) <30 copies/mL 11/23/2021 2:59 PM EST [facility] HIV-1 RNA (log10) 5.46(H) <1.46 log copies/mL 11/23/2021 2:59 PM EST [facility] Interpretation Detected 11/23/2021 2:59 PM EST [facility] Comment:Performed by FDA elham roved [employer]pt[employer] TMA. Linear range is 30 to 10,000,000 copies/mL. HIV Genotyping is not recommended for viral loads below 2,000 copies/mL. Not FDA approved to diagnose HIV infection. Blood specimen (specimen) Plasma specimen / Unknown 11/18/2021 12:15 PM EST 11/18/2021 12:55 PM EST Shani Blankenship MD LAB BLOOD ORDERABLES [facility]u [facility] [address] [address] from Last 3 Months or Most Recently Relevant to Health Maintenance Insurance [facility] Advance Directives * Full Code (Latest Code Status on File) Date Activated Date Inactivated Comments 11/17/2021 12:47 PM Healthcare Agents on File Name Relationship Healthcare Agent Relationship Communication Divya Cramer Adult sibling 4. Next of Kin (Spouse, Adult Child, Parent, Adult Sibling, Grandparent) Care Teams Gravel Roofer Relationship Specialty Start Date End Date Provider, MD Divya PCP - General 11/17/21
--- OUTSIDE RECORDS SUMMARY | 2025-05-24 16:59 | XMS_ITS | Clinical Summary ---
Author Organization [facility] Address [address] [phone] Phone Care Team Providers Care Employment Law Specialist Name Role Phone Unknown, Unknown Primary Care Provider Lizbet winkler Allergies No known active allergies Medications No known medications Active Problems Problem Noted Date Diagnosed Date Psychiatric problem 07/10/2024 Social History Tobacco Use Types Packs/Day Years Used Date Smoking Tobacco: Never Assessed Education Answer Date Recorded Are you interested in more education? Not on sean e 07/10/2024 Are you concerned about learning? Not on file 07/10/2024 No 07/10/2024 No 07/10/2024 Digital Access Answer Date Recorded No 07/10/2024 No 07/10/2024 Reliable internet access at home? Not on file 07/10/2024 Device with a working camera? Not on file Intimate Partner Violence Answer Date R ecorded Are you denied basic needs s uch as food, clothing, or medical care? No 07/10/2024 In the past 12 months have y ou been in a relationship with a person who hurts, threatens, or tries to control you? No 07/10/2024 Are you denied basic needs s uch as food, clothing, or medical care? No 07/10/2024 In the past 12 months have y ou been in a relationship with a person who hurts, threatens, or tries to control you? No 07/10/2024 Sex and Gender Information Value Date Recorded Sex Assigned at Male 07/09/2024 11:44 PM EDT Legal Sex Male 11:37 PM EDT Gender Identity Male 07/09/2024 11:44 PM EDT Sexual Orientation Straight 07/09/2024 11 :44 PM EDT Last Filed Vital Signs Vital Sign Reading Time Taken Comments Blood Pressure 114/87 07/10/2024 5:30 PM EDT Pulse 96 07/10/2024 5:30 PM EDT Temperature 36.5 C (97.7 F) 07/10/2024 5:30 PM EDT Respiratory Rate 18 07/10/2024 5:30 PM EDT Oxygen Saturation 100% 07/10/2024 5:30 PM EDT Inhaled Oxygen Concentration - - Weight 70.3 kg (155 lb) 07/10/2024 1:00 AM EDT Height 175.3 cm (5' 9 ) 07/10/2024 1:00 AM EDT Body Mass Index 22.89 07/10/2024 1:00 AM EDT Plan of Treatment Health Maintenance Due Date Last Done Comments DEPRESSION SCREENING 2010 SMOKING Hx and SMOKELESS TOB ACCO SCREENING 2011 HEPATITIS C SCREENING 2016 HIV ONE-TIME SCREENING (18-6 5 YEARS) 2016 INFLUENZA VACCINE (#1) 2025 COVID-19 VACCINE ( - 2023-2 5 season) 2025 Adult Td,Tdap Booster 08/13/2028 08/13/2018 HEPATITIS A VACCINES Aged Out No long er eligible based on patient's age to complete this topic HIB VACCINES Aged Out No longer eligi ble based on patient's age to complete this topic MENINGOCOCCAL VACCINES (ACWY) Aged Out No longer eligible based on patient's age to complete this topic MENINGOCOCCAL VACCINES (B) Aged Out N o longer eligible based on patient's age to complete this topic PNEUMOCOCCAL VACCINES (0-49 years) Aged Out No longer eligible based on patient's age to complete this topic Medical Devices Not on file Insurance [employer] Care Teams Employment Law Specialist Relationship Specialty Start Date End Date Unknown, Unknown, PCP - General 07/09/24 Additional Source Comments The information contained in this document represents components of the legal health record. It is not the complete legal health record.[facility]
== END 2025-05-24 19:24 | disposition left against medical advice (07) ==
PROVIDERS: Physician Assistant Medical; Emergency Provider Emergency Medicine
DX: R11.0 Nausea (principal); R42 Dizziness and giddiness; R53.1 Weakness
CPT/HCPCS: 80053; 83735; 84484; 85025; 87502; 87635; 93005; 99283

== ENCOUNTER → 2025-05-24 14:10 | Outpatient (BNV) | payer OTHER, SELFPAY | PROVIDERS: Visit Provider Internal Medicine Cardiovascular Disease | DX: R00.0 Tachycardia, unspecified (principal) | CPT/HCPCS: 93010 ==

== ENCOUNTER 2025-05-27 20:41 | Inpatient (IN) | payer OTHER, SELFPAY ==
--- NOTE | 2025-05-27 | ECG_ITS ---
Test Reason : SEIZURE Blood Pressure : */* mmHG Vent. Rate : 124 BPM Atrial Rate : 124 BPM P-R Int : 126 ms QRS Dur : 80 ms QT Int : 286 ms P-R-T Axes : 62 74 44 degrees QTcB Int : 410 ms Sinus tachycardia Otherwise normal ECG When compared with ECG of 24-May-2025 14:11, No significant change was found Referred By: Generic ED Physician Electronically Signed By: EDIS PETTY MD
--- NOTE | ~2025-05-27 | CT_ITS ---
CLINICAL HISTORY: septic work up, HIV + fever CT chest with contrast Comparison: None provided Findings: NECK BASE: Limited views of the thyroid are unremarkable. LUNGS/PLEURA: Breathing motion artifact. No focal consolidation. PULM VASCULAR: No central pulmonary embolism. MEDIASTINUM: No masses or lymphadenopathy. CARDIAC: No pericardial effusion. No cardiomegaly. AORTA: No aneurysm. CHEST WALL: No masses or axillary lymphadenopathy. LIMITED ABDOMEN: See separate CT abdomen and pelvis. BONES: No acute fracture. IMPRESSION: 1. No acute abnormality in the chest. This document has been electronically signed by: Yessenia Nathan MD on 05/27/2025 23:58:39
--- NOTE | ~2025-05-27 | CT_ITS ---
CLINICAL HISTORY: Altered mentation seizure CT head without contrast Comparison: CT/SR - CT HEAD/BRAIN WO IV CON - 09/13/24 10:15 EST Findings: No intra-axial mass, midline shift, hydrocephalus, or acute hemorrhage. No significant atrophy-like change or white matter disease. There is no sinus or mastoid fluid. The orbits are within normal limits. No skull fracture. IMPRESSION: 1. No acute intracranial findings. This document has been electronically signed by: Yessenia Nathan MD on 05/27/2025 23:54:52
--- NOTE | ~2025-05-27 | CT_ITS ---
CLINICAL HISTORY: septic work up, LLQ abdominal pain CT abdomen and pelvis with contrast Comparison: CT/REG/SR - CT ABDOMEN PELVIS WITH IV CONTRAST - 05/14/25 09:57 EDT Findings: LIMITED CHEST: See separate CT chest. LIVER: Small hypoattenuating lesions, too small to characterize however may represent cysts. BILIARY: No gallbladder wall thickening, radiopaque stone, or ductal dilatation. PANCREAS: No mass or ductal dilatation. SPLEEN: No splenomegaly. KIDNEYS: There is asymmetric right urothelial thickening and enhancement. Right renal patchy hypoattenuation. Small hypoattenuating lesions, too small to characterize however may represent cysts. No hydronephrosis. ADRENALS: No nodule. VASCULAR: No aneurysm. RETROPERITONEUM: No lymphadenopathy or mass. BOWEL/MESENTERY: No mass or wall thickening. No evidence of obstruction. No free fluid or air. Rectal probe in place. ABDOMINAL WALL: No mass or significant abnormality. URINARY BLADDER: Circumferential thickening of the bladder. PELVIC NODES: No pelvic lymphadenopathy. PELVIC ORGANS: Normal for age. BONES: No acute fracture. OTHER: Negative. IMPRESSION: Right urothelial enhancement and thickening suggesting ascending urinary tract infection. There is patchy hypoattenuation of the right kidney which may represent concurrent pyelonephritis. Circumferential thickening of the bladder suggesting cystitis. This document has been electronically signed by: Yessenia Nathan MD on 05/28/2025 00:07:10
[2025-05-27 20:46] VITALS: BP 134/78; PULSE 130; O2SAT 97
[2025-05-27 20:47] VITALS: PULSE 121; RESP 17; TEMP 39.6; O2SAT 98; BMI 23.7
--- NOTE | 2025-05-27 20:56 | PC.NURSE ---
patients heart rate elevated to 140, witnessed patient seizing, patient turned on side and Dr notified, medicated per KRYSTAL and at bedside
[2025-05-27 21:04] VITALS: BP 129/81; PULSE 121; RESP 17; TEMP 39.6; O2SAT 98
[2025-05-27 21:13] LABS: Hematocrit 34.3 % (42.0-52.0); Hemoglobin 11.4 g/dl (14.0-18.0); Imm Gran Abs Auto 0.05 X10*3/uL (0.00-0.03); Imm Gran Pct Auto 0.3 % (0.0-0.4); Lymphocytes Absolute Auto 3.0 X10*3/uL (1.2-4.9); MANUAL DIFF FLAG SCAN; Mean Corpuscular HGB Conc 33.2 g/dl (31.0-36.0); Mean Corpuscular Hemoglobin 24.3 pg (27.0-33.0); Mean Corpuscular Volume 73.0 fL (80.0-98.0); NRBC Abs Auto 0.000 X10*3/uL (0.0-0.012); NRBC Pct Auto 0.0 /100WBC (0.0-0.2); Platelet Count 360 X10*3/uL (160-400); Red Blood Count 4.70 X10*6/uL (4.60-5.80); SCAN SMEAR FLAG 1; White Blood Count 14.9 X10*3/uL (4.8-10.8)
--- NOTE | 2025-05-27 21:19 | ED_ITS ---
HPI - General Adult General Chief complaint: Seizure Stated complaint: sz hx postical aggravated when stimulated,resting Time Seen by Provider: 05/27/25 21:19 Source: patient, family (Bela Stokes) and EMS Mode of arrival: EMS Limitations: altered mental status History of Present Illness ED Provider: HPI narrative: This is a 25-year-old male with a history of seizures versus history of psychogenic nonepileptic seizures, presenting with possibly a seizure from home, EMS reported that patient was postictal, patient himself is unreliable historian at this time, he is somewhat confused, answering questions but does not really know why he is in the hospital he did endorse that he smokes methamphetamine and has a history of IV drug use but has not not reportedly injected drugs in some weeks to months, additional information was obtained when I called his sister, she told me that patient does have history of frequent drug use, he has a history of HIV that patient also disclosed to me and is not compliant with his HAART, patient the did tell me that he does not take medications for his HIV. He was also very anxious and wanted to leave the hospital, I was noted that 3 days ago he was here and left before completing treatment. Related Data Home Medications ?Medication ?Instructions ?Recorded ?Confirmed mirtazapine 15 mg tablet 15 mg PO DAILY 05/28/2505/17 Previous Rx's ?Medication ?Instructions ?Recorded divalproex 500 mg tablet,delayed 1,000 mg (2 x 500 mg) PO BID #120 09/22/24 release tabs Allergies Allergy/AdvReac Type Severity Reaction Status Date / Time No Known Allergies (No Known Allergy Verified 05/27/25 21:01 Allergies*) Review of Systems 2 Constitutional: Constitutional: Reports as per [facility] Past Medical History Medical History Methamphetamine abuse HIV (human immunodeficiency virus infection) Social History Social History Household Members: Unknown / Unable to assess Household Members Other:: sister assisted in answering questions as patient is sleepy Housing: Unknown / Unable to assess Do you presently have visiting nurse or other home services: No Alcohol intake: current Alcohol intake frequency: holidays/special occasions only Comment: 1:1 Patient Tobacco Use Status: Never used Tobacco Smoked in Last 30 Days: Yes Second Hand Smoke Exposure: No Substance Use Type: Amphetamines Advance Directives: No Advance Directives Information Provided: No Physical Exam ED Vital Signs: Vital Signs - 24 hr 05/27/25 20:47 05/27/25 21:04 05/27/25 22:32 Temperature 103.2 F H 103.2 F H 100.8 F H Pulse Rate 121 H 121 H 106 H Respiratory Rate 17 17 20 Blood Pressure 129/81 106/59 L Pulse Oximetry 98 98 98 Oxygen Delivery Method Room Air Room Air Room Air 05/27/25 22:48 05/27/25 23:30 05/28/25 01:01 Temperature 101.1 F H 101.1 F H 99.9 F Pulse Rate 112 H 98 95 Respiratory Rate 18 17 17 Blood Pressure 133/83 117/71 114/66 Pulse Oximetry 100 99 98 Oxygen Delivery Method Room Air Room Air Room Air BMI result Body Mass Index 23.7 Const Other: * Gen: ?Young appearing male, anxious affect * HEENT: No blood in the oropharynx, no scleral icterus, * Neck: No meningismus * CV: Tachycardic and regular * Resp: ?No wheezing rales rhonchi no stridor moving air well * Abd: ?Bowel sounds are present, generalized tenderness but mostly in the left lower quadrant * MSK: FROM, strength 5/5 all extremities * Skin: Warm, dry, intact, * Neuro: ?Alert and oriented to self, not location not situation, moving upper and lower extremities symmetrically, no obvious facial asymmetry noted Course Course Course Narrative: [address] bedside [address] Elliott - approx 4 min GTC seizure, IV valium ordered, already received 4G keppra will load with dilantin. Unclear if during his ED visit he has returned fully to baseline. This is concerning for status. Will discuss with Dr. Johns about ICU admit for cont EEG if necessary. Sammi Arcos, 05/28/25 1142 Medications Administered Generic Name Dose Route Start Last Admin Trade Name Freq PRN Reason Stop Dose Admin Diazepam 5 mg 05/28/25 03:54 05/28/25 11:24 Diazepam 10 Mg/2 Ml Cartridge IVPUSH 5 mg STAT PRN Administration Seizures Enoxaparin Sodium 40 mg 05/28/25 09:00 05/28/25 09:30 Enoxaparin Sodium 40 Mg/0.4 Ml Syringe SUBCUT 40 mg Q24H DEVON Administration Lactated Ringer's 1,000 mls @ 100 mls/hr 05/28/25 02:00 05/28/25 02:58 Lr IVCONT 100 mls/hr .Q10H DEVON Administration Piperacillin Sod/Tazobactam 50 mls @ 100 mls/hr 05/28/25 06:00 05/28/25 09:16 Sod 3.375 gm/ Sodium Chloride IV Infused Q6H DEVON Infusion Sodium Chloride 3 ml 05/28/25 08:00 05/28/25 09:15 0.9 % Sodium Chloride Flush 3 Ml Syringe IVFLUSH Not Given QSHIFT DEVON Discontinued Medications Generic Name Dose Route Start Last Admin Trade Name Freq PRN Reason Stop Dose Admin Acetaminophen 650 mg 05/27/25 21:35 05/27/25 22:15 Acetaminophen Supp 650 Mg Supp.Rect AK 05/27/25 21:36 650 mg ONCE ONE Administration Diazepam 5 mg 05/27/25 21:23 05/27/25 21:35 Diazepam 10 Mg/2 Ml Cartridge IVPUSH 05/27/25 21:24 5 mg STAT STA Administration Diazepam 5 mg 05/27/25 21:51 05/27/25 21:52 Diazepam 10 Mg/2 Ml Cartridge IVPUSH 05/27/25 21:52 5 mg STAT STA Administration Haloperidol Lactate 2.5 mg 05/27/25 21:23 05/27/25 21:34 Haloperidol Lactate 5 Mg/Ml Vial IVPUSH 05/27/25 21:24 2.5 mg ONCE ONE Administration Sodium Chloride 1,000 mls @ 999 mls/hr 05/27/25 21:30 05/27/25 22:48 Ns IV 05/27/25 22:30 Infused .Q1H1M DEVON Infusion Piperacillin Sod/Tazobactam 50 mls @ 100 mls/hr 05/27/25 21:23 05/27/25 22:15 Sod 3.375 gm/ Sodium Chloride IV 05/27/25 21:52 Infused ONCE ONE Infusion Vancomycin HCl 1,500 mg/ 500 mls @ 333.333 mls/hr 05/27/25 21:23 05/28/25 00:38 Sodium Chloride IV 05/27/25 22:52 Infused ONCE ONE Infusion Levetiracetam 1,500 mg in 100 mls @ 400 mls/hr 05/27/25 23:36 05/28/25 00:29 Keppra IV 05/27/25 23:50 Infused ONCE ONE Infusion Levetiracetam 1,000 mg in 100 mls @ 400 mls/hr 05/28/25 10:00 05/28/25 06:23 Keppra IV Infused Q12H DEVON Infusion Magnesium Sulfate/Dextrose 1 gm in 100 mls @ 100 mls/hr 05/28/25 03:33 05/28/25 05:21 Magnesium Sulfate/D5w IV 05/28/25 04:32 Infused ONCE ONE Infusion Levetiracetam 3,000 mg/ Sodium 130 mls @ 520 mls/hr 05/28/25 05:59 05/28/25 06:09 Chloride IV 05/28/25 06:13 Not Given ONCE ONE Iohexol 85 ml 05/27/25 23:09 05/27/25 23:20 Iohexol 350 Mg/Ml 100 Ml Infus..Btl IV 05/27/25 23:10 85 ml ONCE ONE Administration Medical Decision Making Medical Decision Making MDM Narrative: 9:45 PM 05/27/2025 (Dr. Bruce Peralta): Sepsis alert was called on the patient, he is a high-risk individual with a history of HIV, medication noncompliance, last year his CD4 count was low, viral load was high, his cystic elaborated the story that he does not take his medications and he has a history of substance use disorder, he denies injection at this time, however IV bacteremia remains a consideration, he has also had history of UTI in April he had E coli UTI I am not sure if that was treated, he has had history of perineal cellulitis, he will be examined head-to-toe after he is sedated, unfortunately patient is also attempting to leave the ER department because he is very anxious and he has no capacity for decision making based on my evaluation. He will receive broad-spectrum antibiotics, normal saline and a full septic workup. He has had similar admission in the past at that point he was also intubated as he was having what I believe are nonepileptic seizures but I am not 100% certain, and he did have an LP at that point, on exam today there was no meningismus, after workup is complete we will determine whether LP is necessary. We will need to obtain CT of the brain to make sure there was no space-occupying lesion such as an abscess. 11:34 PM 05/27/2025 (Dr. 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 rBuce Peralta): Patient has pyelonephritis on CT Differential Diagnosis Differential Diagnoses: The differential diagnosis associated with the presentation includes (UTI, pneumonia, abdominal source of infection, cellulitis, bacteremia, meningitis, encephalitis) Admission/Observation Consideration of admission/observation: Escalation of care including admission/observation considered Consult Healthcare Provider Management of the patient was discussed with: Hospitalist Lab Data MDM Lab Attestation statement: I reviewed the patient's lab results. 05/28/25 05:15 05/28/25 05:15 Labs: Lab Results 05/27/25 05/27/25 05/27/25 Range/Units 21:06 21:37 22:10 WBC 14.9 H (4.8-10.8) X10*3/uL RBC 4.70 (4.60-5.80) X10*6/uL Hgb 11.4 L (14.0-18.0) g/dl Hct 34.3 L (42.0-52.0) % MCV 73.0 L (80.0-98.0) fL MCH 24.3 L (27.0-33.0) pg MCHC 33.2 (31.0-36.0) g/dl RDW 15.9 (11.0-16.0) % Plt Count 360 (160-400) X10*3/uL MPV 8.4 L (9.4-12.4) fL Immature Gran % (Auto) 0.3 (0.0-0.4) % Neut % (Auto) 68.1 (45-73) % Lymph % (Auto) 20.0 (20-40) % [place] % (Auto) 11.1 H (2-11) % Eos % (Auto) 0.4 (0-4) % Baso % (Auto) 0.1 (0-2) % Lymph # (Auto) 3.0 (1.2-4.9) X10*3/uL [place] # (Auto) 1.7 H (0.1-1.2) X10*3/uL Eos # (Auto) 0.1 (0.0-0.4) X10*3/uL Baso # (Auto) 0.0 (0.0-0.2) X10*3/uL Abs Immat Gran (auto) 0.05 H (0.00-0.03) X10*3/uL Absolute Neuts (auto) 10.1 H (2.0-8.3) x10*3/uL Absolute Nucleated RBC 0.000 (0.0-0.012) X10*3/uL Nucleated RBC % (auto) 0.0 (0.0-0.2) /100WBC Smear Tech's Comments VERIFIED Sodium 136 (135-145) mmol/L Potassium 3.6 (3.3-5.1) mmol/L Chloride 102 (96-108) mmol/L Carbon Dioxide 25 (22-29) mmol/L Anion Gap 13 (12-20) BUN 9 (9-16) mg/dL Creatinine 0.99 (0.5-1.4) mg/dL Estim Creat Clear Calc 112.0 Estimated GFR > 60 Random Glucose 123 H (60-115) mg/dL Lactic Acid 1.5 (0.5-2.0) mmol/L Calcium 8.5 (8.4-10.2) mg/dL Magnesium 1.5 L (1.6-2.6) mg/dL Total Bilirubin 0.4 (0.0-1.0) mg/dL AST 23 (5-37) U/L ALT 17 (0-40) U/L Alkaline Phosphatase 67 (39-117) U/L Total Protein 7.7 (6.5-8.0) g/dL Albumin 3.8 (3.5-5.0) g/dL Lipase 11 (8-78) U/L Urine Color Yellow Urine Appearance Cloudy Urine pH 6.5 (5.0-9.0) Ur Specific [place] 1.010 (1.005-1.025) Urine Protein 30 (1+) H (Neg-Trace) mg/dL Urine Glucose (UA) Negative (Negative) mg/dL Urine Ketones Negative (Negative) mg/dL Urine Blood Trace H (Negative) Urine Nitrite Positive H (Negative) Ur Leukocyte Esterase Large (3+) H (Negative) Urine RBC 0-2 (0-2) /HPF Urine WBC >50 H (0-5) /HPF Ur Squamous Epith Cells 0-2 (0-2) /HPF Urine Bacteria 4+ (None Seen) Hyaline Casts 0-2 (0-2) /LPF Urine Opiates Screen Not Detected (Not Detect) Ur Buprenorphine Scrn Not Detected (Not Detect) ng/mL Ur Oxycodone Screen Not Detected (Not Detect) ng/mL Urine Methadone Screen Not Detected (Not Detect) ng/mL Urine Fentanyl Screen Not Detected (Not Detect) Ur Barbiturates Screen Not Detected (Not Detect) Ur Phencyclidine Scrn Not Detected (Not Detect) Ur Amphetamines Screen POSITIVE H (Not Detect) U Benzodiazepines Scrn Not Detected (Not Detect) Urine Cocaine Screen Not Detected (Not Detect) U Marijuana (THC) Screen Not Detected (Not Detect) Respiratory Panel Marvin See Note Adenovirus (Rapid PCR) Not Detected (Not Detect.) B.pert (TEM-PCR) Not Detected (Not Detect.) B.parapertussis DNA PCR Not Detected (Not Detect.) C. pneumoniae DNA (PCR) Not Detected (Not Detect.) Coronavirus OC43 (PCR) Not Detected (Not Detect.) Coronavirus HKU1 (PCR) Not Detected (Not Detect.) Coronavirus 229E (PCR) Not Detected (Not Detect.) Coronavirus NL63 (PCR) Not Detected (Not Detect.) Monoscreen Negative (Negative) Human Metapneumovir PCR Not Detected (Not Detect.) Influenza A (RT-PCR) Not Detected (Not Detect.) Influenza A (H1) PCR Not Detected (Not Detect.) Influ A (H1/09) PCR Not Detected (Not Detect.) Influenza A (H3) PCR Not Detected (Not Detect.) Influenza B (RT-PCR) Not Detected (Not Detect.) M. pneumoniae (PCR) Not Detected (Not Detect.) Parainfluenza 1 (PCR) Not Detected (Not Detect.) Parainfluenza 2 (PCR) Not Detected (Not Detect.) Parainfluenza 3 (PCR) Not Detected (Not Detect.) Parainfluenza 4 (PCR) Not Detected (Not Detect.) RSV (PCR) Not Detected (Not Detect.) Entero/Rhino (PCR) Not Detected (Not Detect.) SARS-CoV-2 RNA (RT-PCR) Not Detected (Not Detect.) Independent Interpretation I performed an independent interpretation of an: EKG (124 beats per minute, sinus tachycardia, otherwise normal ECG without dysrhythmia, AV ninoska blocks or ST-T changes to suspect underlying ACS, my independent interpretation) Radiology Impression Discussion of test interpretation with radiology: I have reviewed the radiologist's reading. (IMPRESSION: Right urothelial enhancement and thickening suggesting ascending urinary tract infection. There is patchy hypoattenuation of the right kidney which may represent concurrent pyelonephritis. Circumferential thickening of the bladder suggesting cystitis.) Independent Historian Clinical information obtained from an independent historian. History obtained from or confirmed by: EMS and Other (Patient's sister) External Record Review External record reviewed: Prior outpatient labs Prescription Management I considered prescription management with: Antiviral and Antibiotic Chronic Conditions Patient?s care impacted by: Other (HIV with medication noncompliance, substance use disorder) Social Determinants Patient?s care significantly limited by Social Determinants of Health including: Inadequate housing (Currently living out of his vehicle as per patient) Critical Care Time Critical Care Time Critical Care Time: Yes Total Critical Care Time: 65 Attestation: Time is exclusive of separately billable procedures. Time includes: direct patient care, patient reassessment, coordination of patient care, interpretation of data (laboratory data, pulse oximetry, arterial blood gases and chest xrays), review of patient's medical records, medical consultation and documentation of patient care. Procedures excluded from critical care time: central intravenous line placement and electrocardiography. Discharge Plan Discharge Clinical Impression: Acute pyelonephritis, HIV disease, Noncompliance with medication regimen, Polysubstance use disorder, Acute metabolic encephalopathy Patient Disposition: Admitted As Inpatient Interventions: Admission Worksheet (ED) Last Done: 05/28/25 04:29
--- OUTSIDE RECORDS SUMMARY | 2025-05-27 21:31 | XMS_ITS | Encounter Summary ---
Author Organization [employer] Address [address] [facility] [facility] [address] [place] [address] Care Team Providers Care Gaming Cage Worker Name Role Phone Unavailable Primary Care Provider [...]
--- OUTSIDE RECORDS SUMMARY | 2025-05-27 21:31 | XMS_ITS | Clinical Summary ---
Author Organization [facility] Address [address] [address] Phone Care Team Providers Care Bike Designer Name Role Phone Unknown, Unknown Primary Care [...] PARTNERSHIP ACO ACO PARTNERSHIP ACO Care Teams Bike Designer Relationship Specialty Start Date End Date Unknown, Unknown, PCP - General 07/09/24 Additional Source Comments The information contained in this document represents components of the legal health record. It is not the complete legal health record.[facility]
--- OUTSIDE RECORDS SUMMARY | 2025-05-27 21:31 | XMS_ITS | Clinical Summary ---
Author Organization [facility] Address [address] [place] [id number] Care Team Providers Care Superintendent Sales Name Role Phone Provider, Conversion MD Primary [...] (11/17/2021): Added automatically from request for surgery [id number] GI bleed 11/17/2021 Social History Tobacco Use [...] Completed 11/18/2021 Medical Devices Implanted Type Area Child Welfare Counselor Device Identifier Shelf Expiration Date Model / Serial / Lot Resolution Ultra Clip Implanted:Qty: 2 on 11/19/2021 by Abril Machado MD at [facility] [employer] [id number] / / Description:Not an implant. Charging purposes only. Abbie Procedures Procedure Name Priority Date/Time Associated Diagnosis Comments HIV-1 RNA VIRAL LOAD, QUANTITATIVE Routine 11/18/2021 12:15 PM EST from Last 3 Months or Most Recently Relevant to Health Maintenance Results * (ABNORMAL) HIV-1 RNA Viral Load, Quantitative (11/18/2021 12:15 PM EST) HIV-1 RNA (copies/mL) 291,728(H) <30 copies/mL 11/23/2021 2:59 PM EST [facility] HIV-1 RNA (log10) 5.46(H) <1.46 log copies/mL 11/23/2021 2:59 PM EST [facility] Interpretation Detected 11/23/2021 2:59 PM EST [facility] Comment:Performed by FDA elham roved FTBpro Aptima TMA. Linear range is 30 to 10,000,000 copies/mL. HIV Genotyping is not recommended for viral loads below 2,000 copies/mL. Not FDA approved to diagnose HIV infection. Blood specimen (specimen) Plasma specimen / Unknown 11/18/2021 12:15 PM EST 11/18/2021 12:55 PM EST Shani Blankenship MD LAB BLOOD ORDERABLES Final Resu lt [facility] [address] [id number] from Last 3 Months or Most Recently Relevant to Health Maintenance Insurance [facility] Advance Directives * Full Code (Latest Code Status on File) Date Activated Date Inactivated Comments 11/17/2021 12:47 PM Healthcare Agents on File Name Relationship Healthcare Agent Relationship Communication Divya Cramer Adult sibling 4. Next of Kin (Spouse, Adult Child, Parent, Adult Sibling, Grandparent) Care Teams Superintendent Sales Relationship Specialty Start Date End Date Provider, MD Divya PCP - General 11/17/21
--- OUTSIDE RECORDS SUMMARY | 2025-05-27 21:31 | XMS_ITS | Clinical Summary ---
Author Organization [employer] Address [address] [facility] [address] [place] [address] Care Team Providers Care Cooker Pie Filling Name Role Phone Unavailable Primary Care Provider [...]
[2025-05-27 21:34] LABS: Alanine Aminotransferase 17 U/L (0-40); Albumin Level 3.8 g/dL (3.5-5.0); Alkaline Phosphatase 67 U/L (39-117); Anion Gap 13 (12-20); Aspartate Amino Transferase 23 U/L (5-37); Blood Urea Nitrogen 9 mg/dL (9-16); Calcium 8.5 mg/dL (8.4-10.2); Carbon Dioxide 25 mmol/L (22-29); Chloride 102 mmol/L (96-108); Creatinine Clr Calc Pharmacy 112.0; Estimated Glomerular Filt Rate > 60; Lipase 11 U/L (8-78); Magnesium 1.5 mg/dL (1.6-2.6); Potassium 3.6 mmol/L (3.3-5.1); Sodium 136 mmol/L (135-145); Total Protein 7.7 g/dL (6.5-8.0)
[2025-05-27] MEDS: diazePAM 10 MG/2 ML CARTRIDGE 5 MG IVPUSH ×2 (21:35→21:52)
[2025-05-27] MEDS: Acetaminophen Supp 650 MG SUPP.RECT PR (22:15)
[2025-05-27 22:20] LABS: Appearance Urine Cloudy; Glucose Urine UA Negative (Negative); PH 6.5 (5.0-9.0); Specific Gravity - Urine 1.010 (1.005-1.025); UMIC TRIGGER UACC YES
[2025-05-27 22:32] VITALS: BP 106/59; PULSE 106; RESP 20; TEMP 38.2; O2SAT 98
[2025-05-27 22:32] LABS: Cannabinoid Screen Urine Not Detected (Not Detect)
[2025-05-27 22:45] LABS: UACC Culture Trigger YES
[2025-05-27 22:48] VITALS: BP 133/83; PULSE 112; RESP 18; TEMP 38.4; O2SAT 100
[2025-05-27] MEDS: iohexoL 350 MG/ML 100 ML INFUS..BTL 85 ML IV (23:20)
[2025-05-27 23:30] VITALS: BP 117/71; PULSE 98; RESP 17; TEMP 38.4; O2SAT 99
[2025-05-28] VITALS (18 sets, daily range): BP systolic 102–145; BP diastolic 55–92; PULSE 78–150; RESP 13–31; TEMP 37–38.2; O2SAT 93–100; BMI 25.3
[2025-05-28] MEDS: levETIRAcetam in NaCl (iso-os) 1,500 MG/100 ML PIGGYBACK 400 MG IV (00:08)
[2025-05-28] MEDS: Lactated Ringers 1,000 ML 100 ML IVCONT ×3 (02:58→20:56)
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
--- NOTE | 2025-05-28 04:34 | PC.NURSE ---
pt incont of stool/ urine during seizure, kiley care provided bed linens changed
--- NOTE | 2025-05-28 04:35 | PC.NURSE ---
pt still very sleepy, incontinent of urine x2 pericare provided bed linens changed
[2025-05-28 05:44] LABS: MANUAL DIFF FLAG NO
[2025-05-28 05:46] LABS: Hematocrit 33.9 % (42.0-52.0); Hemoglobin 11.2 g/dl (14.0-18.0); Imm Gran Abs Auto 0.04 X10*3/uL (0.00-0.03); Imm Gran Pct Auto 0.4 % (0.0-0.4); Lymphocytes Absolute Auto 2.4 X10*3/uL (1.2-4.9); Mean Corpuscular HGB Conc 33.0 g/dl (31.0-36.0); Mean Corpuscular Hemoglobin 24.4 pg (27.0-33.0); Mean Corpuscular Volume 73.9 fL (80.0-98.0); NRBC Abs Auto 0.000 X10*3/uL (0.0-0.012); NRBC Pct Auto 0.0 /100WBC (0.0-0.2); Platelet Count 311 X10*3/uL (160-400); Red Blood Count 4.59 X10*6/uL (4.60-5.80); White Blood Count 11.3 X10*3/uL (4.8-10.8)
--- NOTE | 2025-05-28 05:59 | PC.NURSE ---
patient witnessed having siezure lasting appx 2 minutes
[2025-05-28] MEDS: diazePAM 10 MG/2 ML CARTRIDGE 5 MG IVPUSH ×2 (06:00→11:24)
[2025-05-28 06:06] LABS: Iron 11 mcg/dL (45-160); Percent Iron Saturation 5 % (15-50); Total Iron Binding Capacity 223 mcg/dL (228-428); Unsaturated Iron Binding 212 ug/dL
[2025-05-28] MEDS: levETIRAcetam in NaCl (iso-os) 1,000 MG/100 ML PIGGYBACK 400 MG IV ×2 (06:07→17:51)
[2025-05-28 06:13] LABS: Alanine Aminotransferase 13 U/L (0-40); Albumin Level 3.3 g/dL (3.5-5.0); Alkaline Phosphatase 81 U/L (39-117); Anion Gap 9 (12-20); Aspartate Amino Transferase 21 U/L (5-37); Blood Urea Nitrogen 7 mg/dL (9-16); Calcium 8.1 mg/dL (8.4-10.2); Carbon Dioxide 25 mmol/L (22-29); Chloride 108 mmol/L (96-108); Creatinine Clr Calc Pharmacy 138.6; Estimated Glomerular Filt Rate > 60; Potassium 4.4 mmol/L (3.3-5.1); Sodium 138 mmol/L (135-145); Total Protein 6.7 g/dL (6.5-8.0)
[2025-05-28 06:37] LABS: Folate 10.7 ng/mL (> or = 4.0); Vitamin B12 255 pg/mL (200-900)
--- NOTE | 2025-05-28 08:15 | P.PNIM_ITS ---
Subjective Subjective Date of Service: 05/28/25 Review of Systems Review of Systems: Yes Unobtainable due to mental status Physical Exam 2 Exam: Exam: obtunded, ill appearing, lungs clear Vital Signs: Vital Signs: Last Vital Signs Temp 99.9 F 05/28/25 06:26 Pulse 102 H 05/28/25 06:26 Resp 16 05/28/25 06:26 BP 113/64 05/28/25 06:26 Pulse Ox 99 05/28/25 06:26 O2 Del Method Room Air 05/28/25 06:26 BMI result Body Mass Index 23.7 Objective Data Active Medications Acetaminophen (Acetaminophen 325 Mg Tablet) 650 mg PO Q6H PRN PRN Reason: Pain, Mild 1-3,fever,headache Benzonatate (Benzonatate 100 Mg Capsule) 100 mg PO TID PRN PRN Reason: Cough Calcium Carbonate (Calcium Carbonate 750 Mg Tab.Chew) 750 mg PO Q4H PRN PRN Reason: Heartburn Diazepam (Diazepam 10 Mg/2 Ml Cartridge) 5 mg IVPUSH STAT PRN PRN Reason: Seizures Last Admin: 05/28/25 06:00 Dose: 5 mg Documented By: BRENDON Enoxaparin Sodium (Enoxaparin Sodium 40 Mg/0.4 Ml Syringe) 40 mg SUBCUT Q24H [facility] Lactated Ringer's (Lr) 1,000 mls @ 100 mls/hr IVCONT .Q10H [facility] Last Admin: 05/28/25 02:58 Dose: 100 mls/hr Documented By: BRENDON Piperacillin Sod/Tazobactam (Sod 3.375 gm/ Sodium Chloride) 50 mls @ 100 mls/hr IV Q6H [facility] Last Admin: 05/28/25 06:30 Dose: 100 mls/hr Documented By: BRENDON Valproic Acid 750 mg/ Dextrose 57.5 mls @ 57.5 mls/hr IV Q8H [facility] Levetiracetam (Keppra) 1,000 mg in 100 mls @ 400 mls/hr IV Q12H [facility] Magnesium Hydroxide (Milk Of Magnesia 30 Ml Oral.Susp) 30 ml PO DAILY PRN PRN Reason: Constipation Melatonin (Melatonin 3 Mg Tablet) 6 mg PO BEDTIME PRN PRN Reason: Insomnia Sodium Chloride (0.9 % Sodium Chloride Flush 3 Ml Syringe) 3 ml IVFLUSH QSHIFT [facility] Labs 05/28/25 05:15 05/28/25 05:15 Labs: Laboratory Results - last 24 hr 05/27/25 05/27/25 05/28/25 21:06 22:10 05:15 MCV 73.0 L 73.9 L MCH 24.3 L 24.4 L MCHC 33.2 33.0 RDW 15.9 16.2 H Plt Count 360 311 MPV 8.4 L 8.6 L Immature Gran % (Auto) 0.3 0.4 Neut % (Auto) 68.1 66.7 Lymph % (Auto) 20.0 21.2 [place] % (Auto) 11.1 H 11.1 H Eos % (Auto) 0.4 0.4 Baso % (Auto) 0.1 0.2 Lymph # (Auto) 3.0 2.4 [place] # (Auto) 1.7 H 1.3 H Eos # (Auto) 0.1 0.1 Baso # (Auto) 0.0 0.0 Abs Immat Gran (auto) 0.05 H 0.04 H Absolute Neuts (auto) 10.1 H 7.6 Absolute Nucleated RBC 0.000 0.000 Nucleated RBC % (auto) 0.0 0.0 Smear Tech's Comments VERIFIED Anion Gap 13 9 L Estim Creat Clear Calc 112.0 138.6 Estimated GFR > 60 > 60 Random Glucose 123 H 85 Lactic Acid 1.5 Calcium 8.5 8.1 L Magnesium 1.5 L Iron 11 L TIBC 223 L % Saturation 5 L Unsat Iron Binding 212 Total Bilirubin 0.4 0.5 AST 23 21 ALT 17 13 Alkaline Phosphatase 67 81 Total Protein 7.7 6.7 Albumin 3.8 3.3 L Lipase 11 Vitamin B12 255 Folate 10.7 Urine Color Yellow Urine Appearance Cloudy Urine pH 6.5 Ur Specific [place] 1.010 Urine Protein 30 (1+) H Urine Glucose (UA) Negative Urine Ketones Negative Urine Blood Trace H Urine Nitrite Positive H Ur Leukocyte Esterase Large (3+) H Urine RBC 0-2 Urine WBC >50 H Ur Squamous Epith Cells 0-2 Urine Bacteria 4+ Hyaline Casts 0-2 Urine Opiates Screen Not Detected Ur Buprenorphine Scrn Not Detected Ur Oxycodone Screen Not Detected Urine Methadone Screen Not Detected Urine Fentanyl Screen Not Detected Ur Barbiturates Screen Not Detected Valproic Acid Ur Phencyclidine Scrn Not Detected Ur Amphetamines Screen POSITIVE H U Benzodiazepines Scrn Not Detected Urine Cocaine Screen Not Detected U Marijuana (THC) Screen Not Detected Monoscreen Negative 05/28/25 06:46 MCV MCH MCHC RDW Plt Count MPV Immature Gran % (Auto) Neut % (Auto) Lymph % (Auto) [place] % (Auto) Eos % (Auto) Baso % (Auto) Lymph # (Auto) [place] # (Auto) Eos # (Auto) Baso # (Auto) Abs Immat Gran (auto) Absolute Neuts (auto) Absolute Nucleated RBC Nucleated RBC % (auto) Smear Tech's Comments Anion Gap Estim Creat Clear Calc Estimated GFR Random Glucose Lactic Acid Calcium Magnesium Iron TIBC % Saturation Unsat Iron Binding Total Bilirubin AST ALT Alkaline Phosphatase Total Protein Albumin Lipase Vitamin B12 Folate Urine Color Urine Appearance Urine pH Ur Specific [place] Urine Protein Urine Glucose (UA) Urine Ketones Urine Blood Urine Nitrite Ur Leukocyte Esterase Urine RBC Urine WBC Ur Squamous Epith Cells Urine Bacteria Hyaline Casts Urine Opiates Screen Ur Buprenorphine Scrn Ur Oxycodone Screen Urine Methadone Screen Urine Fentanyl Screen Ur Barbiturates Screen Valproic Acid < 12.5 L Ur Phencyclidine Scrn Ur Amphetamines Screen U Benzodiazepines Scrn Urine Cocaine Screen U Marijuana (THC) Screen Monoscreen Assessment and Plan (1) Noncompliance with medication regimen: Status: Acute Plan 25M PMH HIV non compliant with meds, polysubsrance dependence prsented with seziure Acute metabolic encephalopathy due to postictal state from seizure Due to noncompliance Restart Keppra Sepsis due to acute pyelonephritis in immunocompromised patient with HIV noncompliant Continue Zosyn, ID eval, follow up cultures Acute hypomagnesemia Replace and monitor DVT prophylaxis with Lovenox Full Code reason for continued hospitalization:ams, fevers Quality Stroke Does the patient have a stroke diagnosis?: No VTE Prior VTE?: No VTE Risk Level:: Medical - moderate - high VTE Device Contraindication: Treatment Not Indicated VTE Drug Contraindication: N/A - Med Ordered
[2025-05-28 08:40] LABS: Chlamydia pneumoniae PCR Not Detected (Not Detect.); Coronavirus 229E PCR Not Detected (Not Detect.); Coronavirus HKU1 PCR Not Detected (Not Detect.); Coronavirus NL63 PCR Not Detected (Not Detect.); Coronavirus OC43 PCR Not Detected (Not Detect.); RSV PCR Not Detected (Not Detect.); Rhino/Enterovirus PCR Not Detected (Not Detect.)
[2025-05-28 08:51] LABS: SARS-CoV-2 PCR Not Detected (Not Detect.)
[2025-05-28 08:52] LABS: Influenza A H1 PCR Not Detected (Not Detect.); Influenza A H1-2009 PCR Not Detected (Not Detect.); Influenza A H3 PCR Not Detected (Not Detect.)
--- NOTE | 2025-05-28 09:59 | P.CNNE_ITS ---
History of Present Illness Data of Consult Service Date: 05/28/25 Primary Care Provider: None Physician HPI Reason for consult: Seizure 25 years old man with HIV disease and homelessness apparently noncompliant with medications and using some street drugs including stimulants was in hospital after a seizure-like episode and had another seizure while in emergency room and was treated last night with Keppra and benzodiazepine. When I saw him this morning, he was very drowsy. There was no obvious tremor or convulsion. His initial evaluation included normal head CT. He was febrile with suspicion of UTI and sepsis. Review of Systems 2 Review of Systems: Could not be done with a [facility] Past Medical History Medical History Methamphetamine abuse HIV (human immunodeficiency virus infection) Social History Social History Household Members: None Household Members Other:: sister assisted in answering questions as patient is sleepy Housing: Apartment Do you presently have visiting nurse or other home services: No Alcohol intake: current Alcohol intake frequency: holidays/special occasions only Comment: 1:1 Patient Tobacco Use Status: Never used Tobacco Smoked in Last 30 Days: Yes Second Hand Smoke Exposure: No Substance Use Type: Amphetamines Advance Directives: No Advance Directives Information Provided: No Meds Allergies Allergy/AdvReac Type Severity Reaction Status Date / Time No Known Allergies (No Known Allergy Verified 05/27/25 21:01 Allergies*) Active Medications: Current Medications Acetaminophen (Acetaminophen 325 Mg Tablet) 650 mg PO Q6H PRN PRN Reason: Pain, Mild 1-3,fever,headache Benzonatate (Benzonatate 100 Mg Capsule) 100 mg PO TID PRN PRN Reason: Cough Calcium Carbonate (Calcium Carbonate 750 Mg Tab.Chew) 750 mg PO Q4H PRN PRN Reason: Heartburn Diazepam (Diazepam 10 Mg/2 Ml Cartridge) 5 mg IVPUSH STAT PRN PRN Reason: Seizures Last Admin: 05/28/25 06:00 Dose: 5 mg Enoxaparin Sodium (Enoxaparin Sodium 40 Mg/0.4 Ml Syringe) 40 mg SUBCUT Q24H [facility] Last Admin: 05/28/25 09:30 Dose: 40 mg Lactated Ringer's (Lr) 1,000 mls @ 100 mls/hr IVCONT .Q10H [facility] Last Admin: 05/28/25 02:58 Dose: 100 mls/hr Piperacillin Sod/Tazobactam (Sod 3.375 gm/ Sodium Chloride) 50 mls @ 100 mls/hr IV Q6H [facility] Last Infusion: 05/28/25 09:16 Dose: Infused Valproic Acid 750 mg/ Dextrose 57.5 mls @ 57.5 mls/hr IV Q8H [facility] Levetiracetam (Keppra) 1,000 mg in 100 mls @ 400 mls/hr IV Q12H [facility] Magnesium Hydroxide (Milk Of Magnesia 30 Ml Oral.Susp) 30 ml PO DAILY PRN PRN Reason: Constipation Melatonin (Melatonin 3 Mg Tablet) 6 mg PO BEDTIME PRN PRN Reason: Insomnia Sodium Chloride (0.9 % Sodium Chloride Flush 3 Ml Syringe) 3 ml IVFLUSH QSHIFT [facility] Last Admin: 05/28/25 09:15 Dose: Not Given Home Medications ?Medication ?Instructions ?Recorded ?Confirmed ?Last Taken ?Type mirtazapine 15 mg tablet 15 mg PO DAILY 05/28/25 Unk nown History Physical Exam 2 Vital Signs: Vital Signs: Last Vital Signs Temp 99.9 F 05/28/25 06:26 Pulse 96 05/28/25 09:04 Resp 24 H 05/28/25 09:04 BP 114/69 05/28/25 09:04 Pulse Ox 99 05/28/25 09:04 O2 Del Method Room Air 05/28/25 09:04 BMI result Body Mass Index 23.7 Neuro: Other: He is very drowsy and I was unable to wake him up. He was morning and responsive to painful stimuli. There was no gaze deviation or nystagmus. Face seems symmetrical. There was no abnormal posturing. Deep tendon reflexes were trace to absent with flexor plantars. Results Labs 05/28/25 05:15 05/28/25 05:15 Labs: Short CBC 05/27/25 05/28/25 Range/Units 21:06 05:15 WBC 14.9 H 11.3 H (4.8-10.8) X10*3/uL Hgb 11.4 L 11.2 L (14.0-18.0) g/dl Hct 34.3 L 33.9 L (42.0-52.0) % Plt Count 360 311 (160-400) X10*3/uL BMP 05/27/25 05/28/25 21:06 05:15 Sodium 136 138 Potassium 3.6 4.4 D Chloride 102 108 Carbon Dioxide 25 25 BUN 9 7 L Creatinine 0.99 0.80 Calcium 8.5 8.1 L Liver Function 05/27/25 05/28/25 Range/Units 21:06 05:15 Total Bilirubin 0.4 0.5 (0.0-1.0) mg/dL AST 23 21 (5-37) U/L ALT 17 13 (0-40) U/L Alkaline Phosphatase 67 81 (39-117) U/L Albumin 3.8 3.3 L (3.5-5.0) g/dL Urine 05/27/25 Range/Units 22:10 Urine Color Yellow Urine Appearance Cloudy Urine pH 6.5 (5.0-9.0) Ur Specific [place] 1.010 (1.005-1.025) Urine Protein 30 (1+) H (Neg-Trace) mg/dL Urine Glucose (UA) Negative (Negative) mg/dL Assessment and Plan (1) Seizure: Status: Acute 25 years old man with complicated medical and social history might have epilepsy with generalized seizures, though it has not been confirmed by EEG. He has received dose of levetiracetam benzodiazepine and was very drowsy related to that. He was also being treated for UTI. My recommendation is to obtain an EEG to rule out nonconvulsive status and also to see if that would help us make a definitive diagnosis of epilepsy. (2) Acute metabolic encephalopathy: Status: Acute Procedures Date of Service Date of Service: 05/28/25
--- NOTE | 2025-05-28 11:11 | PHA.MEDREC ---
Addendum entered by Penny Pal [facility] 05/28/25 11:54: REVIEWED BY PHARMACIST Original Note: Pharmacy Consult ? Medication Reconciliation Pharmacy has completed the medication reconciliation. Pt not responsive, spoke with sister (Divya) over the phone and she states she does not think her brother is complaint with taking his meds and is not currently taking anything; she confirmed he should be taking an HIV and Seizure med but doesn't know the names of them at this time. I called pt pharmacy and they state the last seizure med to be filled was Divalproex 500mg in February 2025 and he had an HIV medication filled back in May 2024 (Symtuza [phone] [id number] QDWF).
--- NOTE | 2025-05-28 11:24 | PM.EVENT ---
Event Note Date of Service: 05/28/25 Event Note: WINDOW/DISTRIBUTION CLERK for recurrent tonic clonic sezire, broke with valium, now postictal, d/w icu will transfer Time Spent With Patient Time: Total time managing care of this patient today ____ minutes.
--- NOTE | 2025-05-28 11:25 | PC.NURSE ---
Pt found by RN seizing in the room 1105. Extra staff called to bedside to reposition. Pt dyspneic, drooling, body rigid, head flexing backward, fists clenched. Heart rate was 140's. Pt maintained his own airway, but briefly placed on Non-rebreather. Room air at this time. Dr Metzger at bedside, ordered 5mg diazepam IV STAT. Pt given 5 mg. Pt's posture began to relax immediately. Pt somnolent at this time, did not awaken.
--- NOTE | 2025-05-28 11:45 | PM.EVENT ---
Event Note Date of Service: 05/28/25 Event Note: Addiction consult placed for patient with methamphetamine use disorder Patient with recurrent seizures in ED, transferring to ICU. Patient to be seen once medically stable. Time Spent With Patient Time: Total time managing care of this patient today ____ minutes.
--- NOTE | 2025-05-28 12:41 | PC.NURSE ---
Pt became rigid and started moaning at 1235. Back arched, increased respirations, fists clenched. episode lasted about 8 minutes. Pt resting at this time.
--- NOTE | 2025-05-28 14:22 | W.PM.IDCN ---
History of Present Illness Data of Consult Service Date: 05/28/25 Requesting physician: Sotero Villafana Primary Care Provider: None Physician HPI Reason for consult: sepsis He presents with seizure concern,?psychogenic versus not. He had urine E coli on 05/14. He has right kidney possible pyelonephritis. He also had HIV and not adherent to treatment. Review of Systems Review of Systems: Yes Unobtainable due to mental condition PMFSH Past Medical History Medical History Methamphetamine abuse HIV (human immunodeficiency virus infection) Family History Family history: reviewed and not pertinent Social History Social History Household Members: Unknown / Unable to assess Household Members Other:: sister assisted in answering questions as patient is sleepy Housing: Unknown / Unable to assess Do you presently have visiting nurse or other home services: No Alcohol intake: current Alcohol intake frequency: holidays/special occasions only Comment: 1:1 Patient Tobacco Use Status: Never used Tobacco Second Hand Smoke Exposure: No Substance Use Type: Amphetamines Meds Allergies Allergy/AdvReac Type Severity Reaction Status Date / Time No Known Allergies (No Known Allergy Verified 05/27/25 21:01 Allergies*) Active Medications: Current Medications Acetaminophen (Acetaminophen 325 Mg Tablet) 650 mg PO Q6H PRN PRN Reason: Pain, Mild 1-3,fever,headache Benzonatate (Benzonatate 100 Mg Capsule) 100 mg PO TID PRN PRN Reason: Cough Calcium Carbonate (Calcium Carbonate 750 Mg Tab.Chew) 750 mg PO Q4H PRN PRN Reason: Heartburn Diazepam (Diazepam 10 Mg/2 Ml Cartridge) 5 mg IVPUSH STAT PRN PRN Reason: Seizures Last Admin: 05/28/25 11:24 Dose: 5 mg Enoxaparin Sodium (Enoxaparin Sodium 40 Mg/0.4 Ml Syringe) 40 mg SUBCUT Q24H [facility] Last Admin: 05/28/25 09:30 Dose: 40 mg Lactated Ringer's (Lr) 1,000 mls @ 100 mls/hr IVCONT .Q10H [facility] Last Admin: 05/28/25 11:55 Dose: 100 mls/hr Piperacillin Sod/Tazobactam (Sod 3.375 gm/ Sodium Chloride) 50 mls @ 100 mls/hr IV Q6H [facility] Last Infusion: 05/28/25 13:15 Dose: Infused Valproic Acid 750 mg/ Dextrose 57.5 mls @ 57.5 mls/hr IV Q8H [facility] Levetiracetam (Keppra) 1,000 mg in 100 mls @ 400 mls/hr IV Q12H [facility] Magnesium Hydroxide (Milk Of Magnesia 30 Ml Oral.Susp) 30 ml PO DAILY PRN PRN Reason: Constipation Melatonin (Melatonin 3 Mg Tablet) 6 mg PO BEDTIME PRN PRN Reason: Insomnia Sodium Chloride (0.9 % Sodium Chloride Flush 3 Ml Syringe) 3 ml IVFLUSH QSHIFT [facility] Last Admin: 05/28/25 09:15 Dose: Not Given Home Medications ?Medication ?Instructions ?Recorded ?Confirmed ?Last Taken ?Type mirtazapine 15 mg tablet 15 mg PO DAILY 05/28/25 05/28/25 Unknown History Physical Exam Vital Signs: Vital Signs: Last Vital Signs Temp 100.8 F H 05/28/25 12:40 Pulse 113 H 05/28/25 12:40 Resp 21 H 05/28/25 12:40 BP 122/86 05/28/25 12:40 Pulse Ox 100 05/28/25 12:40 O2 Del Method Non-Rebreather Ma 05/28/25 12:40 O2 Flow Rate 15 05/28/25 12:40 BMI result Body Mass Index 25.3 Const: General: cooperative HEENT: Head: Yes normal to inspection Face and sinus: Yes normal facial exam Mouth: Normal oral and palatal mucosa present Teeth and gingiva: dentition normal Eyes: General: appearance normal, both eyes and all related structures Pupils: Equal, round and reactive pupils present Resp: Effort & Inspection: normal respiratory effort Cardio: Rate: regular rate Rhythm: regular rhythm GI: Palpation (GI): Soft to palpation and nontender : General: Yes no CVA tenderness Back/Spine/Pelvis: Back: no CVA tenderness Skin: General skin exam: no rashes or lesions noted Neuro: General: moves all extremities Cranial nerves: Yes Equal, round and reactive pupils present Extrem: General: Yes normal to inspection Psych: Other: somnolent Results Labs 05/28/25 05:15 05/28/25 05:15 Labs: Short CBC 05/27/25 05/28/25 Range/Units 21:06 05:15 WBC 14.9 H 11.3 H (4.8-10.8) X10*3/uL Hgb 11.4 L 11.2 L (14.0-18.0) g/dl Hct 34.3 L 33.9 L (42.0-52.0) % Plt Count 360 311 (160-400) X10*3/uL BMP 05/27/25 05/28/25 21:06 05:15 Sodium 136 138 Potassium 3.6 4.4 D Chloride 102 108 Carbon Dioxide 25 25 BUN 9 7 L Creatinine 0.99 0.80 Calcium 8.5 8.1 L Liver Function 05/27/25 05/28/25 Range/Units 21:06 05:15 Total Bilirubin 0.4 0.5 (0.0-1.0) mg/dL AST 23 21 (5-37) U/L ALT 17 13 (0-40) U/L Alkaline Phosphatase 67 81 (39-117) U/L Albumin 3.8 3.3 L (3.5-5.0) g/dL Urine 05/27/25 Range/Units 22:10 Urine Color Yellow Urine Appearance Cloudy Urine pH 6.5 (5.0-9.0) Ur Specific [place] 1.010 (1.005-1.025) Urine Protein 30 (1+) H (Neg-Trace) mg/dL Urine Glucose (UA) Negative (Negative) mg/dL Microbiology Microbiology Results: Microbiology 05/27/25 Unknown Urine clean catch - Clean Catch Midstream Urine Culture - Preliminary Culture in progress. Assessment and Plan (1) Noncompliance with medication regimen: Status: Acute (2) Polysubstance use disorder: Status: Acute (3) Sepsis: Status: Acute (4) Acute pyelonephritis: Status: Acute (5) HIV disease: Status: Acute Plan He probably has urologic source of sepsis such as E coli. He has immune deficiency and not taking HIV meds He has possible seizure activity. Would continue Zosyn cover urine. Check CD4 count and HIV viral load. Await urine and blood culture. LP check protein,glucose,gram stain as well as meningitis/encephalitis panel Check West Nile Cryptococcal antigen,,VDRL,fungus and AFB from LP all except cryptococcal which can get from blood. Duration of antibiotics to be determined. Continue HIV meds ?Biktarvy.Check CD4 counts and HIV viral load and prophylaxis if needed.
[2025-05-28] MEDS: 0.9 % Sodium Chloride Flush 3 ML SYRINGE IVFLUSH (15:10)
--- NOTE | 2025-05-28 15:35 | P.CONCC_ITS ---
History of Present Illness Data of Consult Service Date: 05/28/25 Primary Care Provider: None Physician HPI Reason for consult: pseudoseizures 25-year-old male with past medical history of homelessness, HIV disease noncompliant to medication, pseudoizures is admitted to the hospital yesterday due to UTI and a possible pyelonephritis. He had multiple episodes of pseudoseizures for which he received doses of diazepam, valproate and Keppra. This morning he was drowsy and had further episodes of pseudoseizures so he has been transferred to medical ICU. He had 2 more episodes of pseudoseizures while in the ICU, while the patient was in the episode, I said him real seizures has legs lifted up in the air and not on the bed, he automatically lift his leg up in the air during the episodes suggesting that these episodes are pseudoseizures and not real seizures. These episodes resolve by itself when attention is not paid. We will hold off on any seizure medications. Review of Systems 2 Review of Systems: Unable to obtain as patient is drowsy PMFSH Past Medical History Medical History Methamphetamine abuse HIV (human immunodeficiency virus infection) Family History Family history: reviewed and not pertinent Social History Social History Household Members: Unknown / Unable to assess Household Members Other:: sister assisted in answering questions as patient is sleepy Housing: Unknown / Unable to assess Do you presently have visiting nurse or other home services: No Alcohol intake: current Alcohol intake frequency: holidays/special occasions only Comment: 1:1 Patient Tobacco Use Status: Never used Tobacco Second Hand Smoke Exposure: No Substance Use Type: Amphetamines Meds Allergies Allergy/AdvReac Type Severity Reaction Status Date / Time No Known Allergies (No Known Allergy Verified 05/27/25 21:01 Allergies*) Active Medications: Current Medications Acetaminophen (Acetaminophen 325 Mg Tablet) 650 mg PO Q6H PRN PRN Reason: Pain, Mild 1-3,fever,headache Benzonatate (Benzonatate 100 Mg Capsule) 100 mg PO TID PRN PRN Reason: Cough Calcium Carbonate (Calcium Carbonate 750 Mg Tab.Chew) 750 mg PO Q4H PRN PRN Reason: Heartburn Enoxaparin Sodium (Enoxaparin Sodium 40 Mg/0.4 Ml Syringe) 40 mg SUBCUT Q24H [facility] Last Admin: 05/28/25 09:30 Dose: 40 mg Lactated Ringer's (Lr) 1,000 mls @ 100 mls/hr IVCONT .Q10H [facility] Last Admin: 05/28/25 11:55 Dose: 100 mls/hr Piperacillin Sod/Tazobactam (Sod 3.375 gm/ Sodium Chloride) 50 mls @ 100 mls/hr IV Q6H [facility] Last Infusion: 05/28/25 13:15 Dose: Infused Levetiracetam (Keppra) 1,000 mg in 100 mls @ 400 mls/hr IV Q12H [facility] Magnesium Hydroxide (Milk Of Magnesia 30 Ml Oral.Susp) 30 ml PO DAILY PRN PRN Reason: Constipation Melatonin (Melatonin 3 Mg Tablet) 6 mg PO BEDTIME PRN PRN Reason: Insomnia Sodium Chloride (0.9 % Sodium Chloride Flush 3 Ml Syringe) 3 ml IVFLUSH QSHIFT [facility] Last Admin: 05/28/25 15:10 Dose: 3 ml Home Medications ?Medication ?Instructions ?Recorded ?Confirmed ?Last Taken ?Type mirtazapine 15 mg tablet 15 mg PO DAILY 05/28/2505/17 Unknown History Physical Exam 2 Vital Signs: Vital Signs: Last Vital Signs Temp 100.8 F H 05/28/25 12:40 Pulse 99 05/28/25 15:00 Resp 15 05/28/25 15:00 BP 127/92 H 05/28/25 15:00 Pulse Ox 100 05/28/25 15:00 O2 Del Method Room Air 05/28/25 15:00 O2 Flow Rate 15 05/28/25 12:40 BMI result Body Mass Index 25.3 General: Young male in my acute distress, ill appearing and tired appearing Nutritional Appearance: well nourished and overweight Eyes: appearance normal, both eyes and all related structures; Alignment and Position: alignment normal and position normal Neck: No lymphadenopathy, no thyromegaly Resp: bilateral air entry equal, occasional added sounds present Cardio: Regular rate, regular rhythm; Heart sounds: S1 normal heart sound present and S2 normal heart sound present GI: soft, nontender, no guarding, no hepatosplenomegaly : bladder normal to inspection, bladder normal to palpation, no renal angle tenderness Skin: no rashes or lesions noted and elasticity normal Neuro: oriented to person, oriented to place, oriented to time and moves all extremities Results Labs 05/28/25 05:15 05/28/25 05:15 Labs: Short CBC 05/27/25 05/28/25 Range/Units 21:06 05:15 WBC 14.9 H 11.3 H (4.8-10.8) X10*3/uL Hgb 11.4 L 11.2 L (14.0-18.0) g/dl Hct 34.3 L 33.9 L (42.0-52.0) % Plt Count 360 311 (160-400) X10*3/uL BMP 05/27/25 05/28/25 21:06 05:15 Sodium 136 138 Potassium 3.6 4.4 D Chloride 102 108 Carbon Dioxide 25 25 BUN 9 7 L Creatinine 0.99 0.80 Calcium 8.5 8.1 L Liver Function 05/27/25 05/28/25 Range/Units 21:06 05:15 Total Bilirubin 0.4 0.5 (0.0-1.0) mg/dL AST 23 21 (5-37) U/L ALT 17 13 (0-40) U/L Alkaline Phosphatase 67 81 (39-117) U/L Albumin 3.8 3.3 L (3.5-5.0) g/dL Urine 05/27/25 Range/Units 22:10 Urine Color Yellow Urine Appearance Cloudy Urine pH 6.5 (5.0-9.0) Ur Specific [place] 1.010 (1.005-1.025) Urine Protein 30 (1+) H (Neg-Trace) mg/dL Urine Glucose (UA) Negative (Negative) mg/dL Microbiology Microbiology Results: Microbiology 05/27/25 Unknown Urine clean catch - Clean Catch Midstream Urine Culture - Preliminary Culture in progress. Assessment and Plan (1) Polysubstance use disorder: Status: Acute (2) Acute pyelonephritis: Status: Acute (3) Sepsis: Status: Acute (4) HIV disease: Status: Acute (5) Conversion disorder with abnormal movement: Status: Acute Plan Pseudoseizures: while the patient was in the episode, I said him real seizures has legs lifted up in the air and not on the bed, he automatically lift his leg up in the air during the episodes suggesting that these episodes are pseudoseizures and not real seizures. These episodes resolve by itself when attention is not paid. T here is no postictal confusion and he states sorry multiple times for the episodes and wants to eat. We will hold off on any seizure medications. Patient's UDS is positive for amphetamines We will hold off on lumbar puncture as we have a definitive source of infection, and the episodes are pseudoseizures. Pyelonephritis: Patient has UTI with possible evidence of pyelonephritis on the CT scan Pending cultures, continue Zosyn HIV disease: Noncompliant to medications due to homelessness Infectious disease consulted Prophylaxis: Lovenox will transfer him back to floor
--- NOTE | 2025-05-28 22:44 | PC.NURSE ---
patient with ongoing behavioral challenges, yelling at staff, attempting to get OOB, severely agitated, code assist called overhead at approx 1700 today. ongoing seizure-like activity, seizure-like activity allways initiates when RN is in room and generally as patient is getting worked-up or agitated. during seizures will withdraw from pain. during pain assessment patient also used his opposite hand to try and manually stop RN during seizure-like activity. patient also states I'll Stop having seizures when this RN states it is unsafe to feed while seizure-like activity is ongoing sister updated over the phone by this RN at approx [phone]
[2025-05-29] VITALS: BP 129/83; PULSE 98; TEMP 36.7
[2025-05-29] MEDS: 0.9 % Sodium Chloride Flush 3 ML SYRINGE IVFLUSH ×2 (00:01→08:35)
--- NOTE | 2025-05-29 01:00 | PC.NURSE ---
Patient yelling out for help, asking for food and drink, stating he has not had anything to eat or drink. Apple juice and crackers provided per patient's request. Patient continues to call for help, requesting pain medication, and sleep aid, patient given tylenol for headache and melatonin for insomnia. Patient was downgraded to [facility], room available, report given to Brigitte and patient was transported to [facility].
[2025-05-29 01:26] VITALS: BP 115/75; PULSE 107; RESP 16; TEMP 37.1; O2SAT 99
[2025-05-29 04:00] VITALS: RESP 16
[2025-05-29 06:00] VITALS: BMI 24.5
[2025-05-29] MEDS: levETIRAcetam in NaCl (iso-os) 1,000 MG/100 ML PIGGYBACK 400 MG IV (06:35)
[2025-05-29] MEDS: diazePAM 10 MG/2 ML CARTRIDGE 5 MG IVPUSH (06:40)
--- NOTE | 2025-05-29 06:46 | PM.EVENT ---
Event Note Date of Service: 05/29/25 Event Note: Rapid response called for seizure-like activity. The patient was reportedly calling all for fluid just minutes prior. vitals stable. Valium 5 mg IV ordered, upon administering patient called out in pain, was responsive. Likely pseudo-seizure. Continue to monitor for further seizure-like activity. Time Spent With Patient Time: Total time managing care of this patient today ____ minutes.
[2025-05-29 07:24] LABS: Hematocrit 35.9 % (42.0-52.0); Hemoglobin 11.4 g/dl (14.0-18.0); Mean Corpuscular HGB Conc 31.8 g/dl (31.0-36.0); Mean Corpuscular Hemoglobin 24.1 pg (27.0-33.0); Mean Corpuscular Volume 75.7 fL (80.0-98.0); NRBC Abs Auto 0.020 X10*3/uL (0.0-0.012); NRBC Pct Auto 0.2 /100WBC (0.0-0.2); Platelet Count 332 X10*3/uL (160-400); Red Blood Count 4.74 X10*6/uL (4.60-5.80); White Blood Count 10.3 X10*3/uL (4.8-10.8)
[2025-05-29 07:39] VITALS: BP 122/67; PULSE 100; RESP 20; TEMP 36.3; O2SAT 100
[2025-05-29 07:43] LABS: Anion Gap 15 (12-20); Blood Urea Nitrogen 8 mg/dL (9-16); Calcium 8.3 mg/dL (8.4-10.2); Carbon Dioxide 22 mmol/L (22-29); Chloride 107 mmol/L (96-108); Creatinine Clr Calc Pharmacy 142.2; Estimated Glomerular Filt Rate > 60; Potassium 3.7 mmol/L (3.3-5.1); Sodium 140 mmol/L (135-145)
--- NOTE | 2025-05-29 07:48 | PC.NURSE ---
This RN was at the bedside to give pt juice and a sandwich as per his request. Pt ate/drank and was taking with this RN while getting scheduled dose of IV keppra. Pt then began to arch his back and lift his legs in the air. Rapid response called. Multiple staff at bedside. Provider ordered valium (administered) and scheduled dose of keppra was infused. Pt appeared to be sleeping but woke with in a couple of minutes yelling and demanding food and drinks. This RN told pt to hold off on food/drink for a little while since he just had a seizure and seemed sleepy. Pt responded by yelling, but I wasn't, I wasn't having a seizure .
--- NOTE | 2025-05-29 10:04 | HO.PM.IMPN ---
Subjective Subjective Date of Service: 05/29/25 Interval History: i dont want to talk about it Physical Exam Exam: Exam: lethargic, non participatory, lungs clear Vital Signs: Vital Signs: Last Vital Signs Temp 97.3 F 05/29/25 07:39 Pulse 100 05/29/25 07:39 Resp 20 05/29/25 07:39 BP 122/67 05/29/25 07:39 Pulse Ox 100 05/29/25 07:39 O2 Del Method Room Air 05/29/25 07:39 O2 Flow Rate 98 05/28/25 18:00 BMI result Body Mass Index 24.5 Objective Data Active Medications Acetaminophen (Acetaminophen 325 Mg Tablet) 650 mg PO Q6H PRN PRN Reason: Pain, Mild 1-3,fever,headache Last Admin: 05/29/25 00:33 Dose: 650 mg Documented By: PEYTON Enoxaparin Sodium (Enoxaparin Sodium 40 Mg/0.4 Ml Syringe) 40 mg SUBCUT Q24H [facility] Last Admin: 05/29/25 08:37 Dose: Not Given Documented By: LUCIE Non-Admin Reason: Patient Refused Piperacillin Sod/Tazobactam (Sod 3.375 gm/ Sodium Chloride) 50 mls @ 100 mls/hr IV Q6H [facility] Last Infusion: 05/29/25 07:45 Dose: Infused Documented By: MAGALIE Levetiracetam (Keppra) 1,000 mg in 100 mls @ 400 mls/hr IV Q12H [facility] Last Infusion: 05/29/25 06:52 Dose: Infused Documented By: MAGALIE Melatonin (Melatonin 3 Mg Tablet) 6 mg PO BEDTIME PRN PRN Reason: Insomnia Last Admin: 05/29/25 00:33 Dose: 6 mg Documented By: PEYTON Sodium Chloride (0.9 % Sodium Chloride Flush 3 Ml Syringe) 3 ml IVFLUSH QSHIFT [facility] Last Admin: 05/29/25 08:35 Dose: 3 ml Documented By: LUCIE Labs 05/29/25 06:59 05/29/25 06:59 Labs: Laboratory Results - last 24 hr 05/29/25 06:59 MCV 75.7 L MCH 24.1 L MCHC 31.8 RDW 15.9 Plt Count 332 MPV 8.3 L Absolute Nucleated RBC 0.020 H Nucleated RBC % (auto) 0.2 Anion Gap 15 Estim Creat Clear Calc 142.2 Estimated GFR > 60 Random Glucose 104 Calcium 8.3 L Microbiology Microbiology Results: Microbiology 05/27/25 22:10 Blood Culture - Preliminary Blood - Venous No growth after 24 hours. 05/27/25 21:06 Blood Culture - Preliminary Blood - Venous No growth after 24 hours. 05/27/25 Unknown Urine Culture - Preliminary Urine clean catch - Clean Catch Midstream Culture in progress. Assessment and Plan (1) Noncompliance with medication regimen: Status: Acute Plan 25M PMH HIV non compliant with meds, polysubsrance dependence presented with seziure activity and fever, transfered to icu 05/28/25 for possible status epilepticus, then felt to be having non epileptic seizures so downgraded back to medical floor Acute metabolic encephalopathy due to medications, fever, +/- postictal state from seizure Due to noncompliance Restarted Keppra Sepsis due to acute pyelonephritis in immunocompromised patient with HIV noncompliant Continue Zosyn, refusing haart ID appreciated - LP possibly saturday, though mental status improved follow up cultures Acute hypomagnesemia Replaced DVT prophylaxis with Lovenox full code reason for continued hospitalization:cutlures pending Full Code reason for continued hospitalization:ams, fevers Quality Stroke Does the patient have a stroke diagnosis?: No VTE Prior VTE?: No VTE Risk Level:: Medical - moderate - high VTE Device Contraindication: Treatment Not Indicated VTE Drug Contraindication: N/A - Med Ordered
[2025-05-29 11:32] VITALS: BP 113/74; PULSE 95; RESP 20; TEMP 36.3; O2SAT 99
--- NOTE | 2025-05-29 12:31 | PM.DS ---
DS: Providers Provider Date of Service: 05/29/25 Date of admission: 05/28/25 02:01 Date of discharge: 05/29/25 Primary care physician: None Physician Consults: 05/28/25 02:00 Consult to Infectious Diseases Routine Consulting Provider: [facility] Reason for consultation: fever Consult to Neurology Routine Consulting Provider: [facility] Reason for consultation: seizure 05/28/25 03:53 Addiction Medicine Provider Routine Consulting Provider: Addiction Covering Reason for consultation: methamphetamine use Has provider been notified: No 05/28/25 15:30 Consult to Psychiatry Stat Consulting Provider: [facility] Psych Covering Reason for consultation: pseudoseizures Has provider been notified: No DS: Diagnosis Discharge Diagnosis (1) Noncompliance with medication regimen: Status: Acute DS: Summary Hospital Course Hospital Course: from initial hpi: 25 yo male with a pmhx significant for HIV and seizure disorder vs psychogenic nonepileptic seizures with med non-compliance, who presented to the ED due to a witnessed seizure by his family. the pt was post ictal upon arrival but was able to provide some groggy history. the pt reported homelssness and that he smokes methamphetamine. he stated that he does not take seizure medications at home. the pt's sister was called who reported that he is non-compliant with his HIV meds. he was diagnosed with an e coli UTI in april and the pt is non-compliant with medication, therefore a course of abx was not likely completed. on exam on arrival he had LLQ discomfort. the pt had a witnessed seizure again in the ED and recieved 10mg IV valium in total with good response. hospital course: Patient was admitted for acute metabolic encephalopathy and sepsis due to acute pyelonephritis and immunocompromised patient with HIV and noncompliance. Course was complicated by what appeared to be status epilepticus and patient was transferred to the intensive care unit. In intensive care unit patient was clearly having nonepileptic seizures as he was responding during episodes and was downgraded back to medical floor. Urine cultures growing Gram-negative rods was treated with Zosyn. Patient's mental status returned to baseline and refused further treatment requested leave against medical advice he was able to demonstrate understanding of the risks of doing so including and demonstrated understanding of his illness and consequences of noncompliance with medications. For acute hypomagnesemia received replacement. Time Attestation Discharge Coordination Time (in mins): 33 Quality: Safe Use of Opioids Does Pt have an Active Cancer Diagnosis on the Problem List?: No Quality: Stroke Does the patient have a stroke diagnosis?: No Physical Exam Exam: Exam: agitated, alert oriented times 3 non pariticpatory Resp: CTA bilateral, no accessory muscles used CVS: S1,S2,RRR GI: soft, non tender, non distended Psych: appropriate insight Vital Signs: Vital Signs: Last Vital Signs Temp 97.3 F 05/29/25 11:32 Pulse 95 05/29/25 11:32 Resp 20 05/29/25 11:32 BP 113/74 05/29/25 11:32 Pulse Ox 99 05/29/25 11:32 O2 Del Method Room Air 05/29/25 11:32 O2 Flow Rate 98 05/28/25 18:00 BMI result Body Mass Index 24.5 DS: Data Data Completed and Pending Completed studies during hospitalization [Text1]: Procedures Drainage of Perineum Subcutaneous Tissue and Fascia, Open Approach (12/23/24) Drainage of Spinal Canal, Percutaneous Approach, Diagnostic (09/11/24) Insertion of Endotracheal Airway into Trachea, Via Natural or Artificial Opening (09/11/24) Inspection of Spinal Canal, Percutaneous Approach (09/11/24) Introduction of Vasopressor into Peripheral Vein, Percutaneous Approach (09/11/24) Respiratory Ventilation, 24-96 Consecutive Hours (09/11/24) Labs on day of discharge: Laboratory Results - last 24 hr 05/29/25 06:59 WBC 10.3 RBC 4.74 Hgb 11.4 L Hct 35.9 L MCV 75.7 L MCH 24.1 L MCHC 31.8 RDW 15.9 Plt Count 332 MPV 8.3 L Absolute Nucleated RBC 0.020 H Nucleated RBC % (auto) 0.2 Sodium 140 Potassium 3.7 Chloride 107 Carbon Dioxide 22 Anion Gap 15 BUN 8 L Creatinine 0.78 Estim Creat Clear Calc 142.2 Estimated GFR > 60 Random Glucose 104 Calcium 8.3 L Preliminary micro results at discharge 05/27/25 Unknown Urine Culture - Preliminary Urine clean catch - Clean Catch Midstream Gram negative rony 05/27/25 22:10 Blood Culture - Preliminary Blood - Venous No growth after 24 hours. 05/27/25 21:06 Blood Culture - Preliminary Blood - Venous No growth after 24 hours. Discharge Plan Discharge Anticipated Discharge Date/Time: 05/29/25 12:30 Patient Disposition: Left Against Medical Advice Discharge Diagnosis: sepsis, pseudoseizures Referrals: Physician,None [Primary Care Provider, Medical] - 1 Week Discharge Medications: No Action mirtazapine 15 mg tablet 15 mg PO DAILY divalproex 500 mg Tablet,Delayed Release (Dr/Ec) 1,000 mg PO BID Qty: 120 0RF Discharge Orders: Discharge Order (Routine); Ordered 05/29/25 Ordered By: Sotero Villafana Diet: Advance to usual diet Activity on Discharge: As tolerated Print Language: Urdu Care Plan Goals: Manage HIV Health Concerns: hiv Plan of Treatment: cannot treat properly outside of hospital Assessment: see above
--- NOTE | 2025-05-29 12:58 | MHC.RECOVRN ---
Attempted to meet with pt in 486- after receiving addiction consult for methamphetamine use. Pt denied using any substances and stated I don't need anything I've been clean for years . Pt at that time was twitching/possibly seizing? (hx of pseudoseizures) and primary RN was presenting AMA papers as pt wants to go to his grandmas house which he was repeating over and over again. Pt offered recovery resources however pt declined them. He is just requesting to be left to go home. No other questions or concerns offered at this time.
--- NOTE | 2025-05-29 13:13 | PC.NURSE ---
1200 pt became very agitated with staff yelling and screaming out asking to leave does not want to stay. After multiple attempts to redirect patient continues to become more agitated. MD called to bedside pt able to answer all orientation questions and repeat back risks of leaving AMA even with continued agitation. Offered patient to contact family for a ride pt refused Do not call my family I dont want you to. Pt contiues to request to leave unable to redirect. Belongings returned to patient IV and tele removed prior to leaving. Patient accompanied off unit to lobby for DC with staff ambulated with steady gait. Hot Frame Tender on unit
[2025-05-29 16:33] LABS: HIV RNA PCR Qn Copies 53400 copies/mL (NOT DETECTED); HIV RNA PCR Qn Log Copies 4.73 (NOT DETECTED)
[2025-06-02 15:14] LABS: Absolute CD3 Count 2089 cells/uL (840-3060); Absolute CD8 Count 1661 cells/uL (180-1170); Percent CD3 Cells 72 % (57-85); Percent CD8 Cells 57 % (12-42)
== END 2025-05-29 13:00 | disposition left against medical advice (07) | DRG 720 ==
LOC: HO.ED 22:41 → HO.EDOVER 05-28 03:15 → HO.ICU 05-28 12:16 → HO.IMC 05-28 23:23
PROVIDERS: Physician Assistant; Radiology Diagnostic Radiology; Admitting Provider Hospitalist; Emergency Provider Emergency Medicine; Visit Provider Internal Medicine
PROC: 009U3ZZ Drainage of Spinal Canal, Percutaneous Approach (ICD-10-PCS; CPT 62270; principal; 2025-05-31 10:00)
DX: A41.9 Sepsis, unspecified organism (principal); R56.9 Unspecified convulsions; E83.42 Hypomagnesemia; F17.210 Nicotine dependence, cigarettes, uncomplicated; Z71.6 Tobacco abuse counseling; Z21 Asymptomatic human immunodeficiency virus [HIV] infection status; F15.90 Other stimulant use, unspecified, uncomplicated; N10 Acute pyelonephritis; B96.20 Unspecified Escherichia coli [E. coli] as the cause of diseases classified elsewhere; Z59.02 Unsheltered homelessness; Z91.148 Patient's other noncompliance with medication regimen for other reason; Z20.822 Contact with and (suspected) exposure to COVID-19
CPT/HCPCS: 36415; 70450; 71260; 74177; 80048; 80053; 80164; 80307; 81001; 82607; 82746; 83540; 83605; 83690; 83735; 85025; 85027; 86308; 86359; 86360; 87040; 87086; 87088; 87186; 87536; 87633; 93005; 94799; 99285; J1165; J1630; J1650; J1953; J2543; J3360; J3374; J3475; J7120; Q9967

== ENCOUNTER → 2025-05-27 21:05 | Outpatient (BNV) | payer OTHER, SELFPAY | PROVIDERS: Admitting Provider Hospitalist; Emergency Provider Emergency Medicine; Visit Provider Internal Medicine Cardiovascular Disease | DX: R00.0 Tachycardia, unspecified (principal) | CPT/HCPCS: 93010 ==

== ENCOUNTER → 2025-05-27 21:19 | Outpatient (BNV) | payer OTHER, SELFPAY | PROVIDERS: Emergency Provider Emergency Medicine; Visit Provider Student in an Organized Health Care Education/Training Program | DX: N39.0 Urinary tract infection, site not specified (principal); R50.9 Fever, unspecified; G40.89 Other seizures | CPT/HCPCS: 70450; 71260; 74177 ==

== ENCOUNTER → 2025-05-28 02:01 | Outpatient (BNV) | payer OTHER, SELFPAY | PROVIDERS: Admitting Provider Hospitalist; Emergency Provider Emergency Medicine; Visit Provider Internal Medicine | DX: A41.9 Sepsis, unspecified organism (principal); Z91.148 Patient's other noncompliance with medication regimen for other reason; F19.90 Other psychoactive substance use, unspecified, uncomplicated; N10 Acute pyelonephritis; B20 Human immunodeficiency virus [HIV] disease | CPT/HCPCS: 99222 ==

== ENCOUNTER → 2025-05-28 02:01 | Outpatient (BNV) | payer OTHER, SELFPAY | PROVIDERS: Admitting Provider Hospitalist; Emergency Provider Emergency Medicine; Visit Provider Psychiatry & Neurology Neurology | DX: R56.9 Unspecified convulsions (principal); G93.41 Metabolic encephalopathy | CPT/HCPCS: 99222 ==

== ENCOUNTER → 2025-05-28 02:01 | Outpatient (BNV) | payer OTHER, SELFPAY | PROVIDERS: Admitting Provider Hospitalist; Emergency Provider Emergency Medicine; Visit Provider Internal Medicine | DX: Z91.148 Patient's other noncompliance with medication regimen for other reason (principal) | CPT/HCPCS: 99223; 99239; 99499 ==

== ENCOUNTER → 2025-05-28 02:01 | Outpatient (BNV) | payer OTHER, SELFPAY | PROVIDERS: Admitting Provider Hospitalist; Emergency Provider Emergency Medicine; Visit Provider Internal Medicine Critical Care Medicine | DX: F19.90 Other psychoactive substance use, unspecified, uncomplicated (principal); N10 Acute pyelonephritis; A41.9 Sepsis, unspecified organism; B20 Human immunodeficiency virus [HIV] disease; F44.4 Conversion disorder with motor symptom or deficit | CPT/HCPCS: 99223 ==

== ENCOUNTER 2025-06-08 15:07 | Emergency (ER) | payer OTHER, SELFPAY ==
--- NOTE | ~2025-06-08 | XR_ITS ---
EXAMINATION: XR CHEST CLINICAL INFORMATION: chest pain COMPARISON: 05/14/2025. CT chest 05/27/2025. TECHNIQUE: 2 views of the chest were obtained. FINDINGS: The cardiac, hilar, and mediastinal contours are normal. The lungs are clear bilaterally. There is no pneumothorax or pleural effusion. There is no focal osseous or soft tissue abnormality. XR/XR chest 2V IMPRESSION: Normal chest. Electronically signed by: Rajeev Cardenas MD 06/08/2025 03:46 PM EDT
--- NOTE | 2025-06-08 15:11 | ECG_ITS ---
Test Reason : CP Blood Pressure : */* mmHG Vent. Rate : 111 BPM Atrial Rate : 111 BPM P-R Int : 126 ms QRS Dur : 82 ms QT Int : 312 ms P-R-T Axes : 76 72 42 degrees QTcB Int : 424 ms Sinus tachycardia Otherwise normal ECG When compared with ECG of 27-May-2025 21:05, No significant change was found Referred By: Valentina Timmons Electronically Signed By: Hemant Wong
[2025-06-08 15:12] VITALS: BP 125/72; PULSE 109; RESP 18; TEMP 36.6; O2SAT 100; BMI 21.3
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
--- NOTE | 2025-06-08 16:42 | PC.NURSE ---
Addendum entered by Enedina Finch RN 06/08/25 16:49: Successfully obtained bloodwork for pt, but was unable to advance catheter for a functional IV. Pt then stated what do you mean, you did this on purpose? No forget that I'm leaving, you just want to hurt me. RN attempted to explain process of obtaining an IV to patient but pt refused. MD aware and brought to bedside. RN and MD attempted to educate pt on risks of leaving without completing treatment, offered USIV placement, but pt still refusing everything. Pt aaox4, ambulates w/steady gait. Pt eloped from ED. Original Note: Successfully obtained bloodwork for pt, but was unable to advance catheter for a functional IV. Pt then stated what do you mean, you did this on purpose? No forget that I'm leaving, you just want to hurt me. RN attempted to explain process of obtaining an IV to patient but pt refused. MD aware and brought to bedside. RN and MD educated pt on risks of leaving without completing treatment, offered USIV placement, but pt still refusing. Pt aaox4, ambulates w/steady gait. Pt left AMA.
--- OUTSIDE RECORDS SUMMARY | 2025-06-08 18:33 | XMS_ITS | Clinical Summary ---
Author Organization [facility] Address [address] [address] Phone Care Team Providers Care Hvac Commercial Salesperson Name Role Phone Unknown, Unknown Primary Care [...] PARTNERSHIP ACO ACO PARTNERSHIP ACO Care Teams Hvac Commercial Salesperson Relationship Specialty Start Date End Date Unknown, Unknown, PCP - General 07/09/24 Additional Source Comments The information contained in this document represents components of the legal health record. It is not the complete legal health record.[facility]
--- OUTSIDE RECORDS SUMMARY | 2025-06-08 18:33 | XMS_ITS | Clinical Summary ---
Author Organization [facility] Address [address] [place] [address] Care Team Providers Care Director Of Intelligence Name Role Phone Provider, Conversion MD Primary [...] (11/17/2021): Added automatically from request for surgery [id number] GI bleed 11/17/2021 Social History Tobacco Use [...] Completed 11/18/2021 Medical Devices Implanted Type Area Jacquard Loom Fixer Device Identifier Shelf Expiration Date Model / Serial / Lot Resolution Ultra Clip Implanted:Qty: 2 on 11/19/2021 by Abril Machado MD at [facility] Better Walk [id number] / / Description:Not an implant. Charging purposes only. Abbie Procedures Procedure Name Priority Date/Time Associated Diagnosis Comments HIV-1 RNA VIRAL LOAD, QUANTITATIVE Routine 11/18/2021 12:15 PM EST from Last 3 Months or Most Recently Relevant to Health Maintenance Results * (ABNORMAL) HIV-1 RNA Viral Load, Quantitative (11/18/2021 12:15 PM EST) HIV-1 RNA (copies/mL) 291,728(H) <30 copies/mL 11/23/2021 2:59 PM EST [facility] HIV-1 RNA (log10) 5.46(H) <1.46 log copies/mL 11/23/2021 2:59 PM EST [facility] Interpretation Detected 11/23/2021 2:59 PM EST [facility] Comment:Performed by FDA elham roved [employer] Aptima TMA. Linear range is 30 to 10,000,000 copies/mL. HIV Genotyping is not recommended for viral loads below 2,000 copies/mL. Not FDA approved to diagnose HIV infection. Blood specimen (specimen) Plasma specimen / Unknown 11/18/2021 12:15 PM EST 11/18/2021 12:55 PM EST Shani Blankenship MD LAB BLOOD ORDERABLES Final Resu lt [facility] [address] [id number] from Last 3 Months or Most Recently Relevant to Health Maintenance Insurance [facility] Advance Directives * Full Code (Latest Code Status on File) Date Activated Date Inactivated Comments 11/17/2021 12:47 PM Healthcare Agents on File Name Relationship Healthcare Agent Relationship Communication Divya Cramer Adult sibling 4. Next of Kin (Spouse, Adult Child, Parent, Adult Sibling, Grandparent) Care Teams Director Of Intelligence Relationship Specialty Start Date End Date Provider, MD Divya PCP - General 11/17/21
--- OUTSIDE RECORDS SUMMARY | 2025-06-08 18:33 | XMS_ITS | Clinical Summary ---
Author Organization [facility] Address [address] [place] [phone] Phone Care Team Providers Care Financial Accounting Analyst Name Role Phone Real Hightower MD Primary Care Provider [phone] Allergies No known active allergies Medications acetaminophen (TYLENOL) 500 mg tablet Take 2 tablets (1,000 mg total) by mouth every 6 (six) hours if needed. 05/31/20 Discontinu ed(Therapy completed) Symtuza [phone] mg per tablet Take 1 tablet by mouth 1 (one) time each day. with food 05/31/20 Discontinu ed(Therapy completed) Banophen 25 mg capsule Take 2 capsules (50 mg total) by mouth 3 (three) times a day if needed for itching or allergies. 05/31/20 Discontinu ed(Therapy completed) meloxicam (Mobic) 7.5 mg tablet Take 1 tablet (7.5 mg total) by mouth 1 (one) time each day if needed for moderate pain. 30 each 1 5 05/31/20 Discontinu ed(Therapy completed) mirtazapine (REMERON) 15 mg tablet Take 1 tablet (15 mg total) by mouth 1 (one) time each day. 90 each 5 05/31/20 Discontinu ed(Therapy completed) melatonin 10 mg tablet Take 1 tablet (10 mg total) by mouth at bedtime as needed for sleep. 30 tablet 3 5 05/31/20 Discontinu ed(Therapy completed) divalproex (DEPAKOTE) [address] tablet Take 2 tablets (1,000 mg total) by mouth 2 (two) times a day. 5 05/31/20 Discontinu ed(Therapy completed) doxycycline (VIBRAMYCIN) 100 mg capsule Take 1 capsule (100 mg total) by mouth 2 (two) times a day. 5 05/31/20 Discontinu ed(Therapy completed) sulfamethoxazol e-trimethoprim (BACTRIM DS,SEPTRA DS) 800-160 mg per tablet Take 1 tablet by mouth 1 (one) time each day. 5 05/31/20 Discontinu ed(Therapy completed) Active Problems Problem Noted Date Diagnosed Date Attention deficit disorder of adult with hyperac tivity 09/24/2024 Cocaine use disorder ([facility] V24, [facility] V28) 09/24/2024 Colitis 09/24/2024 HIV disease ([facility] V24, [facility] V28) STD (sexually transmitted disease) 09/24/2024 Depression 09/24/2024 Psychiatric problem 07/10/2024 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[facility] V24, [facility] V28) 07/2022 PTSD (post-traumatic stress disorder) 11/24/2021 Schizophrenia ([facility] V24, [facility] V28) 022 GI bleed 11/17/2021 Rectal bleeding 11/17/2021 Overview (09/24/2024): Added automatically from request for surgery [id number] HIV (human immunodeficiency virus infection) ([facility] V24, [facility] V28) 10/08/2018 Marijuana use 11/05/2017 Depression Overview (07/21/2024): DX:Depression Marijuana use Overview (07/21/2024): DX:Marijuana use 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[facility] V24) Encounters Date Type Department Care Team Description 05/31/2025 11:00 AM EDT Consult [address] [place] [phone] Julianne Hillman MD HIV disease ([facility] V24, [facility] V28) (Primary Dx); Seizure cerebral ([facility] V24, [facility] V28); Attention deficit disorder of adult with hyperactivity; Psychiatric problem; 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[facility] V24, [facility] V28) 05/11/2025 1:00 PM EDT Office Visit [facility] Hematology Oncology [address] [place] [phone] Keke Fish PA Normocytic anemia 03/12/2025 Telephone Internal Medicine [facility] [address] [phone] Real Hightower MD 03/12/2025 Telephone Internal Medicine [facility] [address] [phone] Real Hightower MD 03/12/[address] [facility] [address] [phone] Real Hightower MD from Last 3 Months Immunizations Name Administration [...] use 11/05/2017 DX:Marijuana use Depression DX:Depression Seizures ([facility] V24, [facility] V28) Family History Medical History Relation Name [...] Sign Reading Time Taken Comments Blood Pressure 160/115 05/31/2025 11:15 AM EDT Pulse 99 05/31/2025 11:15 AM EDT Temperature 37.3 C (99.2 F) 05/11/2025 1:31 PM EDT Respiratory Rate 20 07/21/2024 10:06 PM EST Oxygen Saturation 98% 05/31/2025 11:15 AM EDT Inhaled Oxygen Concentration - - Weight 72.2 kg (159 lb 3.2 oz) 05/31/2025 11:15 AM EDT Height 170.4 cm (5' 7.1 ) 05/31/2025 11:15 AM ED T Body Mass Index 24.86 05/31/2025 11:15 AM EDT Plan of Treatment Upcoming Encounters Date Type Department Care Team ([facility] st Contact Info) Description 09/30/2025 10:30 AM EST Office Visit [facility] [address] [facility] [address] [place] [phone] Julianne Hillman MD [address] [place] [address] Health Maintenance Due Date Last Done Comments [...] Td or Tdap) 12/22/2034 12/22/2024, 11/19/2018, 08/13/2018 RSV Immunization Adult Patients (1 - 1-dose 75+ series) 2073 Hepatitis A Vaccines Completed 09/25/2018, 11/11/19 16 [...] ANTIBODY Routine 01/06/2025 12:49 PM EDT Seizures ([facility] V24, [facility] V28) Gall stones PTSD (post-traumatic stress disorder) Preventative health care Possible exposure to STD LIPID PANEL WITH REFLEX TO DIRECT LDL Routine 01/06/2025 12:49 PM EDT Seizures ([facility] V24, [facility] V28) Gall stones PTSD (post-traumatic stress disorder) Preventative health care Possible exposure to STD from Last 3 Months or Most Recently Relevant to Health Maintenance Results * (ABNORMAL) Hepatitis C antibody (01/06/2025 12:49 PM EDT) [facility] Hepatitis C Antibody Positive (A) Negative LAB CHEMISTRY METHOD 01/06/2025 4:52 PM EDT [facility] Comment:If confirmation of t his [...] Final Resul t [facility] [address] [place] [address], [place] [phone] * (ABNORMAL) Lipid panel with reflex to direct LDL (01/06/2025 12:49 PM EDT) [facility] Cholesterol 107 0 - 200 mg/dL LAB CHEMISTRY METHOD 01/06/2025 3:08 PM EDT [facility] Triglycerides 90 0 - 150 mg/dL LAB CHEMISTRY METHOD 01/06/2025 3:08 PM [facility] HDL 36(L) >=40 mg/dL LAB CHEMISTRY METHOD 01/06/2025 3:08 PM EDT [facility] LDL Calculated 53 0 - 100 mg/dL LAB CHEMISTRY METHOD 01/06/2025 3:08 PM T [facility] VLDL Cholesterol Jacob 18 mg/dL LAB CHEMISTRY METHOD 01/06/2025 3:08 PM EDT [facility] Non HDL Chol. (LDL+VLDL) 71 <145 mg/dL LAB CHEMISTRY METHOD 01/06/2025 3:08 PM [facility] Chol/HDL Ratio 3.0 0.0 - 4.4 LAB CHEMISTRY METHOD 01/06/2025 3:08 PM EDT [facility] Blood Venous blood specimen / Unknown Venipuncture / Unknown 01/06/2025 12:49 PM EDT 01/06/2025 1:47 PM EDT us Real Hightower MD LAB BLOOD ORDERABLES Final Resul t [facility] [address] [place] [address], from Last 3 Months or Most Recently Relevant to Health Maintenance Insurance [facility] [employer] Care Teams Financial Accounting Analyst Relationship Specialty Start Date End Date Real Hightower MD [address] [address] PCP - General 02/22/23
--- OUTSIDE RECORDS SUMMARY | 2025-06-08 18:33 | XMS_ITS | Encounter Summary ---
Author Organization [employer] Address [address] [facility] [address] [place] [address] Care Team Providers Care Aquaculturist Name Role Phone Unavailable Primary Care Provider [...]
--- OUTSIDE RECORDS SUMMARY | 2025-06-08 18:33 | XMS_ITS | Clinical Summary ---
Author Organization [employer] Address [address] [facility] [address] [place] [address] Care Team Providers Care Supervising Film Or Videotape Editor Name Role Phone Unavailable Primary Care Provider [...]
== END 2025-06-08 16:45 | disposition left against medical advice (07) ==
PROVIDERS: Emergency Provider Emergency Medicine; PCP Internal Medicine
DX: N12 Tubulo-interstitial nephritis, not specified as acute or chronic (principal); R07.89 Other chest pain; R00.0 Tachycardia, unspecified; R10.2 Pelvic and perineal pain; R10.11 Right upper quadrant pain
CPT/HCPCS: 71046; 76775; 93005; 99283; 99284

== ENCOUNTER → 2025-06-08 15:11 | Outpatient (BNV) | payer OTHER, SELFPAY | PROVIDERS: Emergency Provider Emergency Medicine; PCP Internal Medicine; Visit Provider Internal Medicine Cardiovascular Disease | DX: R00.0 Tachycardia, unspecified (principal) | CPT/HCPCS: 93010 ==

== ENCOUNTER → 2025-06-08 15:22 | Outpatient (BNV) | payer OTHER, SELFPAY | PROVIDERS: Emergency Provider Emergency Medicine; PCP Internal Medicine; Visit Provider Radiology Diagnostic Radiology | DX: R07.9 Chest pain, unspecified (principal) | CPT/HCPCS: 71046 ==

== ENCOUNTER 2025-06-09 07:43 | Inpatient (IN) | payer OTHER, SELFPAY ==
[2025-06-09] VITALS (8 sets, daily range): BP systolic 107–140; BP diastolic 58–72; PULSE 92–129; RESP 16–20; TEMP 36.1–39.2; O2SAT 97–99; BMI 22.8; BMI 26.3
--- NOTE | 2025-06-09 | ECG_ITS ---
Test Reason : tachycardia Blood Pressure : */* mmHG Vent. Rate : 116 BPM Atrial Rate : 116 BPM P-R Int : 92 ms QRS Dur : 92 ms QT Int : 304 ms P-R-T Axes : 71 81 41 degrees QTcB Int : 422 ms Sinus tachycardia with short ID Otherwise normal ECG When compared with ECG of 08-Jun-2025 15:14, ID interval has decreased Referred By: Generic ED Physician Electronically Signed By: Hemant Wong
--- NOTE | ~2025-06-09 | CT_ITS ---
EXAMINATION: CT ABDOMEN AND PELVIS WITH CONTRAST CLINICAL INFORMATION: Nausea, vomiting, abdominal pain. IVDA. COMPARISON: 05/27/2025, 05/14/2025. TECHNIQUE: Multidetector volumetric images were obtained from the superior aspect of the liver through the pubic symphysis following administration 85 mL of Omnipaque 350 intravenous contrast. Sagittal and coronal reformatted images were obtained on the technologist's workstation. Oral contrast: No This CT examination was performed using dose optimization techniques as appropriate, variously including the following: *Automated exposure control *Adjustment of mA and/or kV according to patient size (this includes techniques or standardized protocols for targeted exams where dose is matched to indication/reason for exam; i.e. extremities or head) *Use of iterative reconstruction technique FINDINGS: LUNG BASES: Lung bases are clear. There are no effusions. LIVER, GALLBLADDER, AND BILIARY TREE: The liver is normal in size, shape, and attenuation. No focal suspicious hepatic lesion or biliary ductal dilatation is present. There is a tiny subcentimeter cyst in segment 4A. The gallbladder is unremarkable with no evidence of radiopaque gallstones, gallbladder wall thickening, or obvious pericholecystic inflammatory changes. PANCREAS: Unremarkable. SPLEEN: Unremarkable. ADRENAL GLANDS: Unremarkable. KIDNEYS AND URETERS: Right kidney demonstrates a striated nephrogram. No hydronephrosis or mass. No calculi seen. Diffuse urothelial enhancement is noted throughout the renal pelvis and involving the territory of the right ureter suggesting ascending UTI. The left kidney and ureter appear normal. BLADDER: Minimal wall thickening of the urinary bladder, likely on the basis of cystitis/UTI. GASTROINTESTINAL TRACT: The small and large bowel are unremarkable. No CT evidence of appendicitis. No rectal abnormality. ABDOMINAL WALL: No hernia or other abnormality. LYMPH NODES: No abnormal lymphadenopathy present. VASCULAR: Unremarkable. PELVIC VISCERA: The prostate and seminal vesicles are unremarkable. OSSEOUS STRUCTURES: No suspicious lytic or blastic bone lesions. No acute finding. CT/CT abdomen pelvis w IV con IMPRESSION: 1. Findings consistent with right pyelonephritis and ascending right urinary tract infection. There may be associated cystitis as well. Electronically signed by: Rajeev Cardenas MD 06/09/2025 10:23 AM EDT
--- NOTE | ~2025-06-09 | CT_ITS ---
EXAMINATION: CT ANGIOGRAM CHEST CLINICAL INFORMATION: IVDU, concern for septic emboli. COMPARISON: No prior CT PA. Correlation made with CT chest 05/27/2025. TECHNIQUE: Multiple axial images were obtained through the chest after the administration of 50 mL of Omnipaque 350 intravenous contrast. Extensive vascular post-processing including two-dimensional and three-dimensional reformatted images were created and reviewed on an independent workstation. This CT examination was performed using dose optimization techniques as appropriate, variously including the following: *Automated exposure control *Adjustment of mA and/or kV according to patient size (this includes techniques or standardized protocols for targeted exams where dose is matched to indication/reason for exam; i.e. extremities or head) *Use of iterative reconstruction technique FINDINGS: VASCULAR: Study quality is adequate. There is no evidence of pulmonary embolus. Main pulmonary artery is normal in size. There is no right heart strain. There is no reflux of contrast into the hepatic IVC. The aorta is normal in caliber, course, and appearance. There is no acute aortic syndrome. There is a 2 vessel branching pattern. Great vessels are widely patent. Heart size is normal. There is no pericardial effusion or intracardiac thrombus. LUNGS: Lungs are well pneumatized and clear bilaterally. There are no consolidations or abnormal hourglass opacities. No interstitial changes. No evidence of septic emboli. Small airways appear normal. Mild gravity dependent atelectatic change. No effusion or pneumothorax. No suspicious nodules. MEDIASTINUM: Thyroid is not well imaged. Triangular soft tissue in the anterior/superior mediastinum is consistent with residual thymus. No adenopathy or mass. Central airways are patent and normal. The esophagus is unremarkable. AXILLA/CHEST WALL: No abnormal lymph nodes or masses. UPPER ABDOMEN: Refer to the dedicated CT abdomen and pelvis performed concurrently. OSSEOUS STRUCTURES: No suspicious lytic or blastic bone lesions evident. No acute findings identified. CT/CT angio chest PE protocol IMPRESSION: 1. There is no evidence of pulmonary embolus. There is no acute aortic syndrome. 2. The lungs are clear without evidence of acute disease. No evidence of septic embolic disease. Electronically signed by: Rajeev Cardenas MD 06/09/2025 10:03 AM EDT
--- OUTSIDE RECORDS SUMMARY | 2025-06-09 07:59 | XMS_ITS | Clinical Summary ---
Author Organization [facility] Address [address] [place] [id number] Care Team Providers Care Junior Recruiter Name Role Phone Provider, Conversion MD Primary [...] (11/17/2021): Added automatically from request for surgery [id number] GI bleed 11/17/2021 Social History Tobacco Use [...] Completed 11/18/2021 Medical Devices Implanted Type Area Environmental Sustainability Manager Device Identifier Shelf Expiration Date Model / Serial / Lot Resolution Ultra Clip Implanted:Qty: 2 on 11/19/2021 by Arbil Machado MD at [facility] [employer] [id number] / / Description:Not an implant. Charging purposes only. Abbie Procedures Procedure Name Priority Date/Time Associated Diagnosis Comments HIV-1 RNA VIRAL LOAD, QUANTITATIVE Routine 11/18/2021 12:15 PM EST from Last 3 Months or Most Recently Relevant to Health Maintenance Results * (ABNORMAL) HIV-1 RNA Viral Load, Quantitative (11/18/2021 12:15 PM EST) HIV-1 RNA (copies/mL) 291,728(H) <30 copies/mL 11/23/2021 2:59 PM EST [facility] HIV-1 RNA (log10) 5.46(H) <1.46 log copies/mL 11/23/2021 2:59 PM EST [facility] Interpretation Detected 11/23/2021 2:59 PM EST [facility] Comment:Performed by FDA elham roved [employer] TMA. Linear range is 30 to 10,000,000 copies/mL. HIV Genotyping is not recommended for viral loads below 2,000 copies/mL. Not FDA approved to diagnose HIV infection. Blood specimen (specimen) Plasma specimen / Unknown 11/18/2021 12:15 PM EST 11/18/2021 12:55 PM EST Shani Blankenship MD LAB BLOOD ORDERABLES Final Resu lt [facility] [address] [id number] from Last 3 Months or Most Recently Relevant to Health Maintenance Insurance [facility] Advance Directives * Full Code (Latest Code Status on File) Date Activated Date Inactivated Comments 11/17/2021 12:47 PM Healthcare Agents on File Name Relationship Healthcare Agent Relationship Communication Divya Cramer Adult sibling 4. Next of Kin (Spouse, Adult Child, Parent, Adult Sibling, Grandparent) Care Teams Junior Recruiter Relationship Specialty Start Date End Date Provider, MD Divya PCP - General 11/17/21
--- OUTSIDE RECORDS SUMMARY | 2025-06-09 07:59 | XMS_ITS | Clinical Summary ---
Author Organization [employer] Address [address] [facility] [address] [place] [address] Care Team Providers Care Dock Or Pier Laborer Name Role Phone Unavailable Primary Care Provider [...]
--- OUTSIDE RECORDS SUMMARY | 2025-06-09 07:59 | XMS_ITS | Clinical Summary ---
Author Organization [facility] Address [address] [address] Phone Care Team Providers Care Epic Cadence Analyst Name Role Phone Unknown, Unknown Primary Care [...] PARTNERSHIP ACO ACO PARTNERSHIP ACO Care Teams Epic Cadence Analyst Relationship Specialty Start Date End Date Unknown, Unknown, PCP - General 07/09/24 Additional Source Comments The information contained in this document represents components of the legal health record. It is not the complete legal health record.[facility]
--- OUTSIDE RECORDS SUMMARY | 2025-06-09 07:59 | XMS_ITS | Encounter Summary ---
Author Organization [employer] Address [address] [facility] [address] [place] [address] Care Team Providers Care Presales Engineer Name Role Phone Unavailable Primary Care Provider [...]
--- OUTSIDE RECORDS SUMMARY | 2025-06-09 07:59 | XMS_ITS | Clinical Summary ---
Author Organization [facility] Address [address] [place] [phone] Phone Care Team Providers Care Fairmont Gold Attendant Name Role Phone Real Hightower MD Primary Care Provider Allergies No known active allergies Medications acetaminophen (TYLENOL) 500 mg tablet Take 2 tablets (1,000 mg total) by mouth every 6 (six) hours if needed. 4 05/31/20 Discontinu ed(Therapy completed) Symtuza [phone] mg per tablet Take 1 tablet by [...] with hyperac tivity 09/24/2024 Cocaine use disorder ([facility], [facility] V28) 09/24/2024 Colitis 09/24/2024 HIV disease ([facility], [facility] V28) STD (sexually transmitted disease) 09/24/2024 Depression 09/24/2024 Psychiatric problem 07/10/2024 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[facility] V24, [facility] V28) 07/2022 PTSD (post-traumatic stress disorder) 11/24/2021 Schizophrenia ([facility] V24, [facility] V28) 022 GI bleed 11/17/2021 Rectal bleeding 11/17/2021 Overview (09/24/2024): Added automatically from request for surgery [id number] HIV (human immunodeficiency virus infection) ([facility] V24, [facility] V28) 10/08/2018 Marijuana use 11/05/2017 Depression Overview (07/21/2024): DX:Depression Marijuana use Overview (07/21/2024): DX:Marijuana use 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[facility] V24) Encounters Date Type Department Care Team Description 05/31/2025 11:00 AM EDT Consult [address] [place] [phone] Julianne Hillman MD HIV disease ([facility] V24, [facility] V28) (Primary Dx); Seizure cerebral ([facility] V24, [facility] V28); Attention deficit disorder of adult with hyperactivity; Psychiatric problem; 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[facility] V24, [facility] V28) 05/11/2025 1:00 PM EDT Office Visit [facility] Hematology Oncology [address] [place] [phone] Keke Fish PA Normocytic anemia 03/12/2025 Telephone Internal Medicine [facility] [place] [facility] [address] [phone] Real Hightower MD 03/12/2025 Telephone Internal Medicine [facility] [place] [facility] [address] [phone] Real Hightower MD 03/12/2025 [facility] [address] [phone] Real Hightower MD from Last 3 Months [...] use 11/05/2017 DX:Marijuana use Depression DX:Depression Seizures ([facility] V24, [facility] V28) Family History Medical History Relation Name [...] Upcoming Encounters Date Type Department Care Team ([facility] st Contact Info) Description 09/30/2025 10:30 AM EST Office Visit [facility] [address] [facility] [address] [place] [phone] Julianne Hillman MD [address] [place] [address] Health Maintenance Due Date Last Done Comments [...] ANTIBODY Routine 01/06/2025 12:49 PM EDT Seizures ([facility] V24, [facility] V28) Gall stones PTSD (post-traumatic stress disorder) Preventative health care Possible exposure to STD LIPID PANEL WITH REFLEX TO DIRECT LDL Routine 01/06/2025 12:49 PM EDT Seizures ([facility] V24, [facility] V28) Gall stones PTSD (post-traumatic stress disorder) Preventative health care Possible exposure to STD from Last 3 Months or Most Recently Relevant to Health Maintenance Results * (ABNORMAL) Hepatitis C antibody (01/06/2025 12:49 PM EDT) [facility] Hepatitis C Antibody Positive (A) Negative LAB CHEMISTRY METHOD 01/06/2025 4:52 PM EDT [facility] Comment:If confirmation of t his positive HCV Ab screening test is needed, please redraw and order HCV Viral Load. Note--> This test may not be added on due to different specimen requirements. Blood Venous blood specimen / Unknown Venipuncture / Unknown 01/06/2025 12:49 PM EDT 01/06/2025 1:47 PM EDT us Real Hightower MD LAB BLOOD ORDERABLES Final Resul t [facility] [address] [place] [address], [place] [phone] * (ABNORMAL) Lipid panel with reflex to direct LDL (01/06/2025 12:49 PM EDT) [facility] Cholesterol 107 0 - 200 mg/dL LAB CHEMISTRY METHOD 01/06/2025 3:08 PM EDT [facility] Triglycerides 90 0 - 150 mg/dL LAB CHEMISTRY METHOD 01/06/2025 3:08 PM [facility] HDL 36(L) >=40 mg/dL LAB CHEMISTRY METHOD 01/06/2025 3:08 PM EDT [facility] LDL Calculated 53 0 - 100 mg/dL LAB CHEMISTRY METHOD 01/06/2025 3:08 PM T [facility] VLDL Cholesterol Jacob 18 mg/dL LAB CHEMISTRY METHOD 01/06/2025 3:08 PM EDT [facility] Non HDL Chol. (LDL+VLDL) 71 <145 mg/dL LAB CHEMISTRY METHOD 01/06/2025 3:08 PM [facility] Chol/HDL Ratio 3.0 0.0 - 4.4 LAB CHEMISTRY METHOD 01/06/2025 3:08 PM EDT [facility] Blood Venous blood specimen / Unknown Venipuncture / Unknown 01/06/2025 12:49 PM EDT 01/06/2025 1:47 PM EDT us Real Hightower MD LAB BLOOD ORDERABLES Final Resul t [facility] [address] [place] [address], from Last 3 Months or Most Recently Relevant to Health Maintenance Insurance [facility] [employer] [facility] [employer] Care Teams Fairmont Gold Attendant Relationship Specialty Start Date End Date Real Hightower MD [address] [id number] PCP - General 02/22/23
--- NOTE | 2025-06-09 08:15 | ED_ITS ---
HPI - General Adult General Chief complaint: Abdominal Pain Stated complaint: Cp, stomach pain. seen t-1 Time Seen by Provider: 06/09/25 08:15 Source: patient Mode of arrival: ambulatory Limitations: no limitations History of Present Illness ED Provider: Wanda Smith PA-C HPI narrative: Patient is a 25 year old assigned male at with a history of HIV not compliant on medication, substance abuse, seizures, mood disorder, and MSSA aspiration pneumonia requiring hospitalization and intubation in February of 2025 at [facility] presenting to the emergency department today with chest pain and abdominal pain. Patient states that he was seen here for this yesterday and left because he wasn't getting medication. Patient states that he is willing to stay this time and he is having nausea / vomiting and feeling generally unwell with chest pressure. Patient denies any other complaints at this time. Related Data Home Medications ?Medication ?Instructions ?Recorded ?Confirmed No Known Home Meds 06/09/25 06/09/25 Allergies Allergy/AdvReac Type Severity Reaction Status Date / Time No Known Allergies Allergy Verified 06/09/25 07:49 Review of Systems 2 Constitutional: Constitutional: Reports as per HPI Eyes: Eyes: Reports as per HPI ENT: Reports as per HPI Cardiovascular: Cardiovascular: Reports as per HPI Respiratory: Respiratory: Reports as per HPI Gastrointestinal: Gastrointestinal: Reports as per HPI Genitourinary: Genitourinary: Reports as per HPI Musculoskeletal: Musculoskeletal: Reports as per HPI Integumentary/Breasts: Skin/Breast: Reports as per HPI Neurologic: Reports as per HPI Psychiatric: Psychiatric: Reports as per HPI Endocrine: Endocrine: Reports as per HPI Hematologic/Lymphatic: Hematologic/Lymphatic: Reports as per HPI Allergic/Immunologic: Allergic/Immunologic: Reports as per HPI [facility] Past Medical History Attestation statement: The following information was validated with the patient. Source: old records reviewed and nursing notes reviewed Medical History Methamphetamine abuse HIV (human immunodeficiency virus infection) Social History Social History Household Members: Unknown / Unable to assess Household Members Other:: sister assisted in answering questions as patient is sleepy Housing: Unknown / Unable to assess Do you presently have visiting nurse or other home services: No Alcohol intake: current Alcohol intake frequency: holidays/special occasions only Comment: 1:1 Patient Tobacco Use Status: Never used Tobacco Smoked in Last 30 Days: No Second Hand Smoke Exposure: No Use of substances other than those prescribed or required for medical reasons: No Substance Use Type: Amphetamines Advance Directives: No Advance Directives Information Provided: Yes Physical Exam ED Vital Signs: Vital Signs - 24 hr 06/09/25 07:46 06/09/25 08:49 Temperature 99.7 F Pulse Rate 129 H Respiratory Rate 16 18 Blood Pressure 131/71 Pulse Oximetry 97 Oxygen Delivery Method Room Air BMI result Body Mass Index 22.8 Const General: cooperative, no acute distress, alert and awake Nutritional Appearance: well nourished Orientation/consciousness: patient oriented x3 HENMT Head: Yes normal to inspection and Yes atraumatic Ears: hearing grossly normal bilaterally and external ears normal General nose exam: Normal external nose present, no nasal discharge noted and no epistaxis Face and sinus: Yes normal facial exam, No abrasion and No laceration Mouth: Normal oral and palatal mucosa present, no drooling and no muffled voice Eyes General: appearance normal, both eyes and all related structures Periorbital: periorbital findings normal Eyelids: Yes eyelids normal Conjunctivae: conjunctivae normal Pupils: Equal, round and reactive pupils present EOM: EOMs intact bilaterally Neck Neck: Yes normal visual inspection and Yes full ROM Resp Effort & Inspection: normal respiratory effort and able to speak in complete sentences Cardio Rate: tachycardic Rhythm: regular rhythm GI Palpation (GI): Soft to palpation, not firm, Tenderness to palpation present (GI), no guarding and not rigid Neuro General: patient oriented x3, moves all extremities and CN's II-XI intact bilaterally Cranial nerves: Yes Equal, round and reactive pupils present Cognition (Neuro): normal cognition Extrem General: Yes normal to inspection, Yes full ROM and Yes capillary refill normal Psych Appearance: grossly normal Mental Status: mental status grossly normal Affect: normal affect Attitude: cooperative Thought process: Normal thought process present Thought content: Normal thought content present Insight: Good insight present (Psych) Medications Administered Generic Name Dose Route Start Last Admin Trade Name Freq PRN Reason Stop Dose Admin Enoxaparin Sodium 40 mg 06/09/25 11:00 06/09/25 12:03 Enoxaparin Sodium 40 Mg/0.4 Ml Syringe SUBCUT Not Given Q24H DEVON Lactated Ringer's 1,000 mls @ 150 mls/hr 06/09/25 11:00 06/09/25 11:58 Lr IVCONT 06/09/25 17:39 150 mls/hr .[id number] DEVON Administration Discontinued Medications Generic Name Dose Route Start Last Admin Trade Name Luisq PRN Reason Stop Dose Admin Ceftriaxone Sodium 1 gm 06/09/25 08:17 06/09/25 08:57 Ceftriaxone Sodium 1 Gm Vial IVPUSH 06/09/25 08:18 1 gm ONCE ONE Administration Hydromorphone HCl 1 mg 06/09/25 08:17 06/09/25 08:49 Hydromorphone Hcl 1 Mg/Ml Syringe IVPUSH 06/09/25 08:18 1 mg ONCE ONE Administration Protocol Hydromorphone HCl 1 mg 06/09/25 11:20 06/09/25 12:03 Hydromorphone Hcl 1 Mg/Ml Syringe IVPUSH 06/09/25 11:21 1 mg ONCE STA Administration Protocol Sodium Chloride 1,000 mls @ 999 mls/hr 06/09/25 08:30 06/09/25 09:50 Ns IV 06/09/25 09:30 Infused .Q1H1M DEVON Infusion Vancomycin HCl 1,500 mg/ 500 mls @ 333.333 mls/hr 06/09/25 09:25 06/09/25 11:40 Sodium Chloride IV 06/09/25 10:54 Infused ONCE ONE Infusion Iohexol 100 ml 06/09/25 09:41 06/09/25 09:42 Iohexol 350 Mg/Ml 100 Ml Infus..Btl IV 06/09/25 09:42 85 ml ONCE ONE Administration Ondansetron HCl 4 mg 06/09/25 08:17 06/09/25 08:49 Ondansetron Hcl 4 Mg/2 Ml Vial IVPUSH 06/09/25 08:18 4 mg ONCE ONE Administration Medical Decision Making Medical Decision Making MDM Narrative: Patient is a 25 year old assigned male at with a history of HIV not compliant on medication, substance abuse, seizures, mood disorder, and MSSA aspiration pneumonia requiring hospitalization and intubation in February of 2025 at [facility] presenting to the emergency department today with chest pain and abdominal pain. Patient's physical exam was as noted in the physical exam portion of this note. Tachycardic individual with a temperature of 99.7 and diffuse abdominal pain. Patient's blood work showed a CR of 1.11 (0.78 on 05/29), CBC showed 15.3. Labs were otherwise unremarkable. Patient's urine showed evidence of infection. Patient's EKG showed sinus tachycardia. Given patient's history of IVDU, tachycardia, and current chest pain complaint - I obtained a CT PE study that was negative for any acute process. Patient's CT abdomen / pelvis showed evidence of a right pyelonephritis and cystitis. I explained my physical exam findings as well as all test results to the patient. I answered all questions asked by the patient. Patient received IV fluids, dilaudid, zofran, ceftriaxone, and Vancomycin. Patient's clinical presentation is most consistent with acute pyelonephritis, nausea, and vomiting but is not consistent with sepsis (@1037). I spoke with the hospitalist team who agreed to admission for continued IV antibiotics. Patient verbalized agreement and understanding with this treatment plan and admission. Differential Diagnosis Differential Diagnoses: The differential diagnosis associated with the presentation includes Pyelonephritis Cystitis UTI Chest pain Atypical chest pain Abdominal pain Admission/Observation Consideration of admission/observation: Escalation of care including admission/observation considered Patient admitted as noted in the MDM Rationale portion of this note. Consult Healthcare Provider Management of the patient was discussed with: Hospitalist (agreed to admission as noted in the MDM Rationale portion of this note. ) Lab Data [facility] Lab Attestation statement: I reviewed the patient's lab results. My interpretation of these results are in the MDM Rationale portion of this note. 06/09/25 08:44 06/09/25 08:44 Labs: Lab Results 06/09/25 06/09/25 Range/Units 08:44 10:38 WBC 15.3 H (4.8-10.8) X10*3/uL RBC 5.24 (4.60-5.80) X10*6/uL Hgb 12.7 L (14.0-18.0) g/dl Hct 39.5 L (42.0-52.0) % MCV 75.4 L (80.0-98.0) fL MCH 24.2 L (27.0-33.0) pg MCHC 32.2 (31.0-36.0) g/dl RDW 17.0 H (11.0-16.0) % Plt Count 376 (160-400) X10*3/uL MPV 8.4 L (9.4-12.4) fL Immature Gran % (Auto) 0.4 (0.0-0.4) % Neut % (Auto) 68.1 (45-73) % Lymph % (Auto) 22.4 (20-40) % Bertie % (Auto) 8.2 (2-11) % Eos % (Auto) 0.6 (0-4) % Baso % (Auto) 0.3 (0-2) % Lymph # (Auto) 3.4 (1.2-4.9) X10*3/uL Bertie # (Auto) 1.3 H (0.1-1.2) X10*3/uL Eos # (Auto) 0.1 (0.0-0.4) X10*3/uL Baso # (Auto) 0.0 (0.0-0.2) X10*3/uL Abs Immat Gran (auto) 0.06 H (0.00-0.03) X10*3/uL Absolute Neuts (auto) 10.4 H (2.0-8.3) x10*3/uL Absolute Nucleated RBC 0.000 (0.0-0.012) X10*3/uL Nucleated RBC % (auto) 0.0 (0.0-0.2) /100WBC Sodium 136 (135-145) mmol/L Potassium 3.7 (3.3-5.1) mmol/L Chloride 102 (96-108) mmol/L Carbon Dioxide 26 (22-29) mmol/L Anion Gap 12 (12-20) BUN 15 (9-16) mg/dL Creatinine 1.11 (0.5-1.4) mg/dL Estim Creat Clear Calc 96.2 Estimated GFR > 60 Random Glucose 77 (60-115) mg/dL Lactic Acid 1.7 (0.5-2.0) mmol/L Calcium 9.0 D (8.4-10.2) mg/dL Total Bilirubin 0.3 (0.0-1.0) mg/dL AST 25 (5-37) U/L ALT 18 (0-40) U/L Alkaline Phosphatase 75 (39-117) U/L Total Protein 8.9 H (6.5-8.0) g/dL Albumin 4.2 (3.5-5.0) g/dL Lipase 19 (8-78) U/L Urine Color Yellow Urine Appearance Cloudy Urine pH 6.0 (5.0-9.0) Ur Specific [place] >= 1.030 H (1.005-1.025) Urine Protein 30 (1+) H (Neg-Trace) mg/dL Urine Glucose (UA) Negative (Negative) mg/dL Urine Ketones Negative (Negative) mg/dL Urine Blood Small (1+) H (Negative) Urine Nitrite Positive H (Negative) Ur Leukocyte Esterase Large (3+) H (Negative) Urine RBC 3-5 H (0-2) /HPF Urine WBC >50 H (0-5) /HPF Urine WBC Clumps Present Ur Squamous Epith Cells 0-2 (0-2) /HPF Urine Bacteria 2+ (None Seen) Hyaline Casts 0-2 (0-2) /LPF Independent Interpretation I performed an independent interpretation of an: EKG and CT Scan Interpretation: My interpretation is in agreement with the radiologist's impression of these imaging studies. L Reason for Exam: nausea, vomiting, pain EXAMINATION: CT ABDOMEN AND PELVIS WITH CONTRAST CLINICAL INFORMATION: Nausea, vomiting, abdominal pain. IVDA. COMPARISON: 05/27/2025, 05/14/2025. TECHNIQUE: Multidetector volumetric images were obtained from the superior aspect of the liver through the pubic symphysis following administration 85 mL of Omnipaque 350 intravenous contrast. Sagittal and coronal reformatted images were obtained on the technologist's workstation. Oral contrast: No This CT examination was performed using dose optimization techniques as appropriate, variously including the following: *Automated exposure control *Adjustment of mA and/or kV according to patient size (this includes techniques or standardized protocols for targeted exams where dose is matched to indication/reason for exam; i.e. extremities or head) *Use of iterative reconstruction technique FINDINGS: LUNG BASES: Lung bases are clear. There are no effusions. LIVER, GALLBLADDER, AND BILIARY TREE: The liver is normal in size, shape, and attenuation. No focal suspicious hepatic lesion or biliary ductal dilatation is present. There is a tiny subcentimeter cyst in segment 4A. The gallbladder is unremarkable with no evidence of radiopaque gallstones, gallbladder wall thickening, or obvious pericholecystic inflammatory changes. PANCREAS: Unremarkable. SPLEEN: Unremarkable. ADRENAL GLANDS: Unremarkable. KIDNEYS AND URETERS: Right kidney demonstrates a striated nephrogram. No hydronephrosis or mass. No calculi seen. Diffuse urothelial enhancement is noted throughout the renal pelvis and involving the territory of the right ureter suggesting ascending UTI. The left kidney and ureter appear normal. BLADDER: Minimal wall thickening of the urinary bladder, likely on the basis of cystitis/UTI. GASTROINTESTINAL TRACT: The small and large bowel are unremarkable. No CT evidence of appendicitis. No rectal abnormality. ABDOMINAL WALL: No hernia or other abnormality. LYMPH NODES: No abnormal lymphadenopathy present. VASCULAR: Unremarkable. PELVIC VISCERA: The prostate and seminal vesicles are unremarkable. OSSEOUS STRUCTURES: No suspicious lytic or blastic bone lesions. No acute finding. CT/CT abdomen pelvis w IV con IMPRESSION: 1. Findings consistent with right pyelonephritis and ascending right urinary tract infection. There may be associated cystitis as well. Electronically signed by: Rajeev Cardenas MD 06/09/2025 10:23 AM EDT Dictated By: Rajeev Cardenas MD Signed By: Electronically signed by Rajeev Cardenas MD 06/09/25 1023 Reason for Exam: pain, hx of IVDU, concern for septic emboli EXAMINATION: CT ANGIOGRAM CHEST CLINICAL INFORMATION: IVDU, concern for septic emboli. COMPARISON: No prior CT PA. Correlation made with CT chest 05/27/2025. TECHNIQUE: Multiple axial images were obtained through the chest after the administration of 50 mL of Omnipaque 350 intravenous contrast. Extensive vascular post-processing including two-dimensional and three- dimensional reformatted images were created and reviewed on an independent workstation. This CT examination was performed using dose optimization techniques as appropriate, variously including the following: *Automated exposure control *Adjustment of mA and/or kV according to patient size (this includes techniques or standardized protocols for targeted exams where dose is matched to indication/reason for exam; i.e. extremities or head) *Use of iterative reconstruction technique FINDINGS: VASCULAR: Study quality is adequate. There is no evidence of pulmonary embolus. Main pulmonary artery is normal in size. There is no right heart strain. There is no reflux of contrast into the hepatic IVC. The aorta is normal in caliber, course, and appearance. There is no acute aortic syndrome. There is a 2 vessel branching pattern. Great vessels are widely patent. Heart size is normal. There is no pericardial effusion or intracardiac thrombus. LUNGS: Lungs are well pneumatized and clear bilaterally. There are no consolidations or abnormal hourglass opacities. No interstitial changes. No evidence of septic emboli. Small airways appear normal. Mild gravity dependent atelectatic change. No effusion or pneumothorax. No suspicious nodules. MEDIASTINUM: Thyroid is not well imaged. Triangular soft tissue in the anterior/superior mediastinum is consistent with residual thymus. No adenopathy or mass. Central airways are patent and normal. The esophagus is unremarkable. AXILLA/CHEST WALL: No abnormal lymph nodes or masses. UPPER ABDOMEN: Refer to the dedicated CT abdomen and pelvis performed concurrently. OSSEOUS STRUCTURES: No suspicious lytic or blastic bone lesions evident. No acute findings identified. CT/CT angio chest PE protocol IMPRESSION: 1. There is no evidence of pulmonary embolus. There is no acute aortic syndrome. 2. The lungs are clear without evidence of acute disease. No evidence of septic embolic disease. Electronically signed by: Rajeev Cardenas MD 06/09/2025 10:03 AM EDT Dictated By: Rajeev Cardenas MD Signed By: Electronically signed by Rajeev Cardenas MD 06/09/25 1003 I independently interpreted this EKG and am in agreement with the below findings: Vent. Rate: 116 BPM Atrial Rate: 116 BPM P-R Int: 92 ms QRS Dur: 92 ms QT Int: 304 ms P-R-T Axes: 71 81 41 degrees QTcB Int: 422 ms Sinus tachycardia with short IN When compared with ECG of 08-Jun-2025 15:14, IN interval has decreased DD/ 0802 Radiology Impression Discussion of test interpretation with radiology: I have reviewed the radiologist's reading. Critical Care Time Critical Care Time Critical Care Time: Yes Total Critical Care Time: 46 Attestation: I spent 46 minutes of Critical Care Time with this patient. This does not include time spent on separately reported billable procedures. Discharge Plan Discharge Clinical Impression: Acute pyelonephritis, Cystitis, Nausea & vomiting Patient Disposition: Admitted As Inpatient
[2025-06-09 08:56] LABS: MANUAL DIFF FLAG NO
[2025-06-09 08:57] LABS: Hematocrit 39.5 % (42.0-52.0); Hemoglobin 12.7 g/dl (14.0-18.0); Imm Gran Abs Auto 0.06 X10*3/uL (0.00-0.03); Imm Gran Pct Auto 0.4 % (0.0-0.4); Lymphocytes Absolute Auto 3.4 X10*3/uL (1.2-4.9); Mean Corpuscular HGB Conc 32.2 g/dl (31.0-36.0); Mean Corpuscular Hemoglobin 24.2 pg (27.0-33.0); Mean Corpuscular Volume 75.4 fL (80.0-98.0); NRBC Abs Auto 0.000 X10*3/uL (0.0-0.012); NRBC Pct Auto 0.0 /100WBC (0.0-0.2); Platelet Count 376 X10*3/uL (160-400); Red Blood Count 5.24 X10*6/uL (4.60-5.80); White Blood Count 15.3 X10*3/uL (4.8-10.8)
--- NOTE | 2025-06-09 08:59 | PC.NURSE ---
Pt comes to ED today with c/o abd pain and chest pressure. Pt reports he was seen here yesterday but left AMA. He now reports feeling worse and wishes to receive Tx. A&Ox3 VSS--slightly tachy. Skin is warm and dry Breaths and speech are even and unlabored Pt is a difficulty stick d/t Hx of IVDU and poor tolerance to venipuncture. 20g to RAC placed by PAMELA Rodriguez; blood labs, lactic, and first set of blood cultures obtained. Failed attempt at straight stick for second set of blood cultures. IV Abx given prior to second set of blood cultures being obtained as per verbal order received from ELIZA Smith. Will reattempt to obtain second set of blood cultures when Pt agreeable.
[2025-06-09 09:11] LABS: Alanine Aminotransferase 18 U/L (0-40); Albumin Level 4.2 g/dL (3.5-5.0); Alkaline Phosphatase 75 U/L (39-117); Anion Gap 12 (12-20); Aspartate Amino Transferase 25 U/L (5-37); Blood Urea Nitrogen 15 mg/dL (9-16); Calcium 9.0 mg/dL (8.4-10.2); Carbon Dioxide 26 mmol/L (22-29); Chloride 102 mmol/L (96-108); Creatinine Clr Calc Pharmacy 96.2; Estimated Glomerular Filt Rate > 60; Lipase 19 U/L (8-78); Potassium 3.7 mmol/L (3.3-5.1); Sodium 136 mmol/L (135-145); Total Protein 8.9 g/dL (6.5-8.0)
[2025-06-09] MEDS: iohexoL 350 MG/ML 100 ML INFUS..BTL IV (09:42)
[2025-06-09 10:52] LABS: Appearance Urine Cloudy; Glucose Urine UA Negative (Negative); PH 6.0 (5.0-9.0); Specific Gravity - Urine >= 1.030 (1.005-1.025); UMIC TRIGGER UACC YES
--- NOTE | 2025-06-09 10:57 | PHA.MEDREC ---
Addendum entered by Ramesh Milton RPh 06/09/25 11:02: MED REC REVIEWED BY [facility] Original Note: Pharmacy Consult ? Medication Reconciliation Pharmacy has completed the medication reconciliation. Patient states he is not taking any medications , however he should be taking some medications. Patient coul not tell me what medications he should be taking.
[2025-06-09 11:03] LABS: UACC Culture Trigger YES
--- NOTE | 2025-06-09 11:21 | PM.IMHP ---
History of Present Illness Date of Service: 06/09/25 Attending physician on admission: Humberto Christopher Chief Complaint: Abdominal pain Everardo Cramer is a 25 years old man with past medical history significant for HIV and depression presents to the emergency department complaining of 3 days' history of right lower quadrant pain radiating to the chest and lower abdomen associated with pain with urination, nausea and vomiting. He reported suggestive fever but denies chills. He did not report blood in urine. He denied headache, palpitations, dizziness or shortness of breath. The patient also denied diarrhea or constipation. He stated that he does not use illicit drugs anymore. He rates tobacco and denied alcohol abuse. In the ED, it was found to have tachycardia. Temperature is 98.7 degrees. Other vital signs are normal. Blood workup showed leukocytosis of 15.3. There is no lactic acidosis. Hemoglobin is 12.7 and platelets 376. There are no electrolyte imbalances. Creatinine is 1.11 and BUN 15. LFTs and lipase are normal. Urinalysis consistent with UTI. RBCs are 3-5 and blood 1+. Abdominal and pelvis CT scan with IV contrast findings consistent with right pyelonephritis and ascending UTI. Chest CTA showed no evidence of pulmonary embolism or acute aortic syndrome. ECG shows sinus tachycardia with short CO without acute ischemic changes. ED tx: Hydromorphone 1 mg IV, Zofran 4 mg IV, ceftriaxone 1 g IV, vancomycin 1 g IV Review of Systems Review of Systems: All 12 systems were reviewed and normal except as noted in HPI. [facility] Medical History Methamphetamine abuse HIV (human immunodeficiency virus infection) Social History Household Members: Unknown / Unable to assess Household Members Other:: sister assisted in answering questions as patient is sleepy Housing: Unknown / Unable to assess Do you presently have visiting nurse or other home services: No Alcohol intake: current Alcohol intake frequency: holidays/special occasions only Comment: 1:1 Patient Tobacco Use Status: Never used Tobacco Smoked in Last 30 Days: No Second Hand Smoke Exposure: No Use of substances other than those prescribed or required for medical reasons: No Substance Use Type: Amphetamines Advance Directives: No Advance Directives Information Provided: Yes Meds Allergies Allergy/AdvReac Type Severity Reaction Status Date / Time No Known Allergies Allergy Verified 06/09/25 07:49 Active Medications: Current Medications Acetaminophen (Acetaminophen 325 Mg Tablet) 650 mg PO Q6H PRN PRN Reason: Pain, Mild 1-3,fever,headache Al Hydroxide/Mg Hydroxide (Magnesium Hydrox/Alum Hydrox 30 Ml Oral.Susp) 30 ml PO Q4H PRN PRN Reason: Heartburn Calcium Carbonate (Calcium Carbonate 750 Mg Tab.Chew) 750 mg PO Q4H PRN PRN Reason: Heartburn Ceftriaxone Sodium (Ceftriaxone Sodium 2 Gm Vial) 2 gm IVPUSH DAILY [facility] Enoxaparin Sodium (Enoxaparin Sodium 40 Mg/0.4 Ml Syringe) 40 mg SUBCUT Q24H [facility] Lactated Ringer's (Lr) 1,000 mls @ 150 mls/hr IVCONT .Q6H40M [facility] Stop: 06/09/25 17:39 Magnesium Hydroxide (Milk Of Magnesia 30 Ml Oral.Susp) 30 ml PO DAILY PRN PRN Reason: Constipation Melatonin (Melatonin 3 Mg Tablet) 6 mg PO BEDTIME PRN PRN Reason: Insomnia Morphine Sulfate (Morphine Sulfate 4 Mg/Ml Cartridge) 2 mg IVPUSH Q4H PRN; Protocol PRN Reason: Pain, Severe (Pain Scale 7-10) Ondansetron HCl (Ondansetron Hcl 4 Mg/2 Ml Vial) 4 mg IVPUSH Q8H PRN PRN Reason: Nausea and Vomiting Oxycodone HCl (Oxycodone Hcl Immed Release 5 Mg Tablet) 5 mg PO Q6H PRN PRN Reason: Pain, Moderate(Pain Scale 4-6) Sodium Chloride (0.9 % Sodium Chloride Flush 3 Ml Syringe) 3 ml IVFLUSH QSHIFT [facility] Home Medications ?Medication ?Instructions ?Recorded ?Confirmed ?Last Taken ?Type No Known Home Meds 06/09/25 06/09/25 Unknown History Physical Exam Vital Signs and Narrative: Vital Signs: Last Vital Signs Temp 99.7 F 06/09/25 07:46 Pulse 129 H 06/09/25 07:46 Resp 18 06/09/25 08:49 BP 131/71 06/09/25 07:46 Pulse Ox 97 06/09/25 07:46 O2 Del Method Room Air 06/09/25 07:46 BMI result Body Mass Index 22.8 Constitutional - Awake and Alert, No apparent distress HEENT - PERRLA, EOMI Heart - S1S2, RRR, No edema Lungs - Normal lung expansion, Normal respiratory effort, No respiratory distress, CTA bilaterally Abdomen - not distended, right upper quadrant tenderness to palpation with guarding and no rebound. Normal bowel sounds. Extremities - no calf tenderness bilaterally, no swelling Musculoskeletal - Normal inspection, normal ROM Skin - Warm/Dry Neurological - Alert & oriented x3. Moving all extremities spontaneously. Psychological - anxious affect Results Labs 06/09/25 08:44 06/09/25 08:44 Labs: Laboratory Results - last 24 hr 06/09/25 06/09/25 08:44 10:38 MCV 75.4 L MCH 24.2 L MCHC 32.2 RDW 17.0 H Plt Count 376 MPV 8.4 L Immature Gran % (Auto) 0.4 Neut % (Auto) 68.1 Lymph % (Auto) 22.4 Murray % (Auto) 8.2 Eos % (Auto) 0.6 Baso % (Auto) 0.3 Lymph # (Auto) 3.4 Murray # (Auto) 1.3 H Eos # (Auto) 0.1 Baso # (Auto) 0.0 Abs Immat Gran (auto) 0.06 H Absolute Neuts (auto) 10.4 H Absolute Nucleated RBC 0.000 Nucleated RBC % (auto) 0.0 Anion Gap 12 Estim Creat Clear Calc 96.2 Estimated GFR > 60 Random Glucose 77 Lactic Acid 1.7 Calcium 9.0 D Total Bilirubin 0.3 AST 25 ALT 18 Alkaline Phosphatase 75 Total Protein 8.9 H Albumin 4.2 Lipase 19 Urine Color Yellow Urine Appearance Cloudy Urine pH 6.0 Ur Specific [place] >= 1.030 H Urine Protein 30 (1+) H Urine Glucose (UA) Negative Urine Ketones Negative Urine Blood Small (1+) H Urine Nitrite Positive H Ur Leukocyte Esterase Large (3+) H Urine RBC 3-5 H Urine WBC >50 H Urine WBC Clumps Present Ur Squamous Epith Cells 0-2 Urine Bacteria 2+ Hyaline Casts 0-2 Imaging Radiologist's Impressions: Impressions Abdomen/Pelvis CT 06/09/25 09:29 IMPRESSION: 1. Findings consistent with right pyelonephritis and ascending right urinary tract infection. There may be associated cystitis as well. Electronically signed by: Rajeev Cardenas MD 06/09/2025 10:23 AM EDT RP Chest CTA 06/09/25 09:29 IMPRESSION: 1. There is no evidence of pulmonary embolus. There is no acute aortic syndrome. 2. The lungs are clear without evidence of acute disease. No evidence of septic embolic disease. Electronically signed by: Rajeev Cardenas MD 06/09/2025 10:03 AM EDT RP Assessment and Plan (1) Acute pyelonephritis: Status: Acute (2) HIV disease: Status: Acute Plan Everardo Cramer is a 25 y/o with PMHx who presents with: Sepsis due to right acute pyelonephritis; leukocytosis and tachycardia , not tolerating p.o.. Continue ceftriaxone 2 g IV daily. Antiemetics as needed. IV fluids. Blood and urine cultures obtained -will follow results. History of HIV. Not currently taking medications. Depression. Not currently taking medications. Code status: Full DVT prophylaxis: Lovenox Patient will need hospitalization for at least 2 midnights for pyelonephritis treatment with IV antibiotics as he isn't tolerating p.o.. Quality Stroke Does the patient have a stroke diagnosis?: No VTE Prior VTE?: No VTE Risk Level:: Medical - moderate - high VTE Device Contraindication: Treatment Not Indicated VTE Drug Contraindication: N/A - Med Ordered
--- NOTE | 2025-06-09 11:43 | PC.NURSE ---
Addendum entered by Niurka Ryan RN 06/09/25 11:53: Phlebotomy approaches this RN and reports Pt is refusing to allow for blood to obtain second set of blood cultures. Phlebotomy reports she educated Pt on the importance of this lab work and Pt continued to refuse. Will alert attending via [employer]. Original Note: Second attempt by saw grinder to obtain second set of blood cultures failed. Phlebotomy at bedside for attempt and Pt refused to allow until he was given cranberry juice. Pt provided with juice and agreed to allow Phlebotomy to attempt blood draw.
--- NOTE | 2025-06-09 11:52 | MHC.EDTECH ---
Patient continues to refuse to change into hospital attire.
[2025-06-09] MEDS: Lactated Ringers 1,000 ML 150 ML IVCONT (11:58)
--- NOTE | 2025-06-09 12:17 | PC.NURSE ---
Pt will proceed to ED Overflow. Call placed to RN J Carlos; RN to RN report completed. Pt awaiting transport.
--- NOTE | 2025-06-09 13:34 | HO.NURTONUR ---
25 yr old male admitted for acute pyelnophritis. Pt comes to ED with c/o R and pain with radiation to chest x2 days. He was seen in ED on 06/08/25 and left AMA. Pt reports pain is 8/10. He complains of vomiting 2 days ago, but not since. A&Ox3 and able to make needs known VSS Skin is warm and dry Breaths and speech are unlabored. Facial symmetry noted. Pt presents as anxious and demanding at time. He often refuses care/procedures until demands are met. Pt refuses to change into hospital attire. 20g to RAC LR running @ 125 ml/hr.
[2025-06-09] MEDS: Lactated Ringers 1,000 ML 999 ML IV (16:55)
[2025-06-09 19:05] LABS: Cannabinoid Screen Urine Not Detected (Not Detect)
[2025-06-10] MEDS: 0.9 % Sodium Chloride Flush 3 ML SYRINGE IVFLUSH ×2 (01:15→08:52)
[2025-06-10 04:00] VITALS: BP 106/62; PULSE 93; RESP 18; TEMP 36.4; O2SAT 99
[2025-06-10 07:13] VITALS: BP 113/74; PULSE 98; RESP 18; TEMP 36.5; O2SAT 99
--- NOTE | 2025-06-10 10:38 | PM.DS ---
DS: Providers Provider Date of Service: 06/10/25 Date of admission: 06/09/25 11:17 Date of discharge: 06/10/25 Primary care physician: Real Hightower MD Consults: 06/09/25 15:09 Consult to Psychiatry Routine Consulting Provider: [facility] Psych Covering Reason for consultation: Paranoia Has provider been notified: No Attending physician on discharge: Rachael Rod Discharging clinician: Divya Man DS: Diagnosis Discharge Diagnosis (1) Acute pyelonephritis: Status: Acute (2) HIV disease: Status: Acute DS: Summary Hospital Course Hospital Course: From H&P on the day of admission Everardo Cramer is a 25 years old man with past medical history significant for HIV and depression presents to the emergency department complaining of 3 days' history of right lower quadrant pain radiating to the chest and lower abdomen associated with pain with urination, nausea and vomiting. He reported suggestive fever but denies chills. He did not report blood in urine. He denied headache, palpitations, dizziness or shortness of breath. The patient also denied diarrhea or constipation. He stated that he does not use illicit drugs anymore. He rates tobacco and denied alcohol abuse. In the ED, it was found to have tachycardia. Temperature is 98.7 degrees. Other vital signs are normal. Blood workup showed leukocytosis of 15.3. There is no lactic acidosis. Hemoglobin is 12.7 and platelets 376. There are no electrolyte imbalances. Creatinine is 1.11 and BUN 15. LFTs and lipase are normal. Urinalysis consistent with UTI. RBCs are 3-5 and blood 1+. Abdominal and pelvis CT scan with IV contrast findings consistent with right pyelonephritis and ascending UTI. Chest CTA showed no evidence of pulmonary embolism or acute aortic syndrome. ECG shows sinus tachycardia with short MN without acute ischemic changes. ED tx: Hydromorphone 1 mg IV, Zofran 4 mg IV, ceftriaxone 1 g IV, vancomycin 1 g IV Sepsis due to acute pyelonephritis. Patient was admitted for IV cultures were done. Unfortunately this morning the patient elected to leave against medical advice, he was awake, alert per report, he did not wait for this provider to come talk to him. The nurse informed me he wanted to leave AMA and when I went to assess him he was already gone. Time Attestation Discharge Coordination Time (in mins): 25 Quality: Safe Use of Opioids Does Pt have an Active Cancer Diagnosis on the Problem List?: No Quality: Stroke Does the patient have a stroke diagnosis?: No Physical Exam Vital Signs: Vital Signs: Last Vital Signs Temp 97.7 F 06/10/25 07:13 Pulse 98 06/10/25 07:13 Resp 18 06/10/25 07:13 BP 113/74 06/10/25 07:13 Pulse Ox 99 06/10/25 07:13 O2 Del Method Room Air 06/10/25 07:13 BMI result Body Mass Index 26.3 DS: Data Data Completed and Pending Completed studies during hospitalization [Text1]: Procedures Drainage of Perineum Subcutaneous Tissue and Fascia, Open Approach (12/23/24) Drainage of Spinal Canal, Percutaneous Approach, Diagnostic (09/11/24) Insertion of Endotracheal Airway into Trachea, Via Natural or Artificial Opening (09/11/24) Inspection of Spinal Canal, Percutaneous Approach (09/11/24) Introduction of Vasopressor into Peripheral Vein, Percutaneous Approach (09/11/24) Respiratory Ventilation, 24-96 Consecutive Hours (09/11/24) Labs on day of discharge: Laboratory Results - last 24 hr 06/09/25 10:38 Urine Color Yellow Urine Appearance Cloudy Urine pH 6.0 Ur Specific [place] >= 1.030 H Urine Protein 30 (1+) H Urine Glucose (UA) Negative Urine Ketones Negative Urine Blood Small (1+) H Urine Nitrite Positive H Ur Leukocyte Esterase Large (3+) H Urine RBC 3-5 H Urine WBC >50 H Urine WBC Clumps Present Ur Squamous Epith Cells 0-2 Urine Bacteria 2+ Hyaline Casts 0-2 Urine Opiates Screen Not Detected Ur Buprenorphine Scrn Not Detected Ur Oxycodone Screen Not Detected Urine Methadone Screen Not Detected Urine Fentanyl Screen Not Detected Ur Barbiturates Screen Not Detected Ur Phencyclidine Scrn Not Detected Ur Amphetamines Screen POSITIVE H U Benzodiazepines Scrn Not Detected Urine Cocaine Screen Not Detected U Marijuana (THC) Screen Not Detected Preliminary micro results at discharge 06/09/25 08:44 Blood Culture - Preliminary Blood - Venous Prelim: GNR Gram Stain only Discharge Plan Discharge Patient Disposition: Left Against Medical Advice Discharge Diagnosis: acute pyelonephritis Referrals: Real Hightower MD [Primary Care Provider, Internal Medicine] - 1 Week Discharge Medications: No Action No Known Home Meds Discharge Orders: Discharge Order (Routine); Ordered 06/10/25 Ordered By: Divya Man Print Language: Tanzanian Care Plan Goals: management of pyelonephritis Health Concerns: left ama Plan of Treatment: left ama Assessment: left ama Discharge Date/Time: 06/10/25 09:31
== END 2025-06-10 09:31 | disposition left against medical advice (07) | DRG 720 ==
LOC: HO.ED 10:38 → HO.EDOVER 11:19 → HO.S3 13:29
PROVIDERS: Internal Medicine; Physician Assistant Medical; Admitting Provider Internal Medicine; Emergency Provider Emergency Medicine; PCP Internal Medicine; Visit Provider Physician Assistant Medical
DX: A41.9 Sepsis, unspecified organism (principal); F15.10 Other stimulant abuse, uncomplicated; N10 Acute pyelonephritis; F17.210 Nicotine dependence, cigarettes, uncomplicated; Z21 Asymptomatic human immunodeficiency virus [HIV] infection status; F32.A Depression, unspecified; Z71.6 Tobacco abuse counseling; Z91.148 Patient's other noncompliance with medication regimen for other reason; Z79.899 Other long term (current) drug therapy
CPT/HCPCS: 36415; 71275; 74177; 80053; 80307; 81001; 83605; 83690; 85025; 87040; 87077; 87086; 87186; 87205; 93005; 99285; J0696; J1171; J1885; J2405; J2543; J3374; J7120; Q9967

== ENCOUNTER → 2025-06-09 08:02 | Outpatient (BNV) | payer OTHER, SELFPAY | PROVIDERS: Admitting Provider Internal Medicine; Emergency Provider Emergency Medicine; PCP Internal Medicine; Visit Provider Internal Medicine Cardiovascular Disease | DX: R00.0 Tachycardia, unspecified (principal) | CPT/HCPCS: 93010 ==

== ENCOUNTER → 2025-06-09 08:17 | Outpatient (BNV) | payer OTHER, SELFPAY | PROVIDERS: Emergency Provider Emergency Medicine; PCP Internal Medicine; Visit Provider Radiology Diagnostic Radiology | DX: N10 Acute pyelonephritis (principal); R07.9 Chest pain, unspecified | CPT/HCPCS: 71275; 74177 ==

== ENCOUNTER → 2025-06-09 11:17 | Outpatient (BNV) | payer OTHER, SELFPAY | PROVIDERS: Admitting Provider Internal Medicine; Emergency Provider Emergency Medicine; PCP Internal Medicine; Visit Provider Internal Medicine | DX: N10 Acute pyelonephritis (principal); B20 Human immunodeficiency virus [HIV] disease | CPT/HCPCS: 99223 ==

== ENCOUNTER 2025-06-10 12:34 | Emergency (ER) | payer OTHER, SELFPAY ==
--- OUTSIDE RECORDS SUMMARY | 2025-06-10 18:47 | XMS_ITS | Encounter Summary ---
Author Organization [employer] Address [address] [facility] [address] [place] [address] Care Team Providers Care Thermal Cutting Machine Operator Name Role Phone Unavailable Primary Care [...]
--- OUTSIDE RECORDS SUMMARY | 2025-06-10 18:47 | XMS_ITS | Clinical Summary ---
Author Organization [facility] Address [address] [address] Phone Care Team Providers Care Community Program Assistant Name Role Phone Unknown, Unknown Primary Care [...] PARTNERSHIP ACO A[facility] Care Teams Community Program Assistant Relationship Specialty Start Date End Date Unknown, Unknown, PCP - General 07/09/24 Additional Source Comments The information contained in this document represents components of the legal health record. It is not the complete legal health record.[facility]
--- OUTSIDE RECORDS SUMMARY | 2025-06-10 18:47 | XMS_ITS | Clinical Summary ---
Author Organization [employer] Address [address] [facility] [address] [place] [address] Care Team Providers Care Mercury Washer Name Role Phone Unavailable Primary Care Provider [...]
--- OUTSIDE RECORDS SUMMARY | 2025-06-10 18:47 | XMS_ITS | Clinical Summary ---
Author Organization [facility] Address [address] [place] [address] Care Team Providers Care Junior Business Analyst Name Role Phone Provider, Conversion MD Primary [...] (11/17/2021): Added automatically from request for surgery [id number] GI bleed 11/17/2021 Social History Tobacco Use [...] Additional history exists HIV Screening Completed 11/18/2021 HPV Vaccines (No Doses Required) Completed Medical Devices Implanted Type Area Carpenters Helper Device Identifier Shelf Expiration Date Model / Serial / Lot Resolution Ultra Clip Implanted:Qty: 2 on 11/19/2021 by Abril Machado MD at [facility] [employer] [id number] / / Description:Not an implant. Charging purposes [...] [facility] Comment:Performed by FDA elham roved Wix Aptima TMA. Linear range is 30 to 10,000,000 copies/mL. HIV Genotyping is not recommended for viral loads below 2,000 copies/mL. Not FDA approved to diagnose HIV infection. Blood specimen (specimen) Plasma specimen / Unknown 11/18/2021 12:15 PM EST 11/18/2021 12:55 PM EST Shani Blankenship MD LAB BLOOD ORDERABLES Final Resu lt HOSP[facility] [address] [id number] from Last 3 Months or Most Recently Relevant to Health Maintenance Insurance Advance Directives * Full Code (Latest Code Status on File) Date Activated Date Inactivated Comments 11/17/2021 12:47 PM Healthcare Agents on File Name Relationship Healthcare Agent Relationship Communication Divya Cramer Adult sibling 4. Next of Kin (Spouse, Adult Child, Parent, Adult Sibling, Grandparent) Care Teams Junior Business Analyst Relationship Specialty Start Date End Date Provider, Conversion, PCP - General 11/17/21
== END 2025-06-10 14:27 | disposition left against medical advice (07) ==
PROVIDERS: Emergency Provider Emergency Medicine; PCP Internal Medicine
DX: M79.10 Myalgia, unspecified site (principal); Z53.21 Procedure and treatment not carried out due to patient leaving prior to being seen by health care provider

== ENCOUNTER 2025-06-10 17:47 | Emergency (ER) | payer OTHER, SELFPAY ==
[2025-06-10 18:00] VITALS: BP 120/70; PULSE 110; O2SAT 99
== END 2025-06-10 19:19 | disposition left against medical advice (07) ==
PROVIDERS: Emergency Provider Emergency Medicine
DX: N28.9 Disorder of kidney and ureter, unspecified (principal)

== ENCOUNTER 2025-07-16 07:02 | Emergency (ER) | payer OTHER, SELFPAY ==
--- NOTE | ~2025-07-16 | CT_ITS ---
EXAMINATION: CT ABDOMEN PELVIS WITHOUT THEN WITH IV CONTRAST HISTORY: GI bleed lower BRBPR COMPARISON: There is an is made with the prior examination dated 06/09/2025. TECHNIQUE: CT scan of the abdomen and pelvis was performed before and after the intravenous administration of 80 mL Omnipaque 350. Post contrast imaging was obtained in the portal venous and delayed phases. Coronal and sagittal reformatted images were generated and reviewed. Oral contrast material was not administered per department protocol. This CT exam was performed with one or more of the following dose reduction techniques: automated exposure control, adjustment of the mA and/or kV according to patient size, use of iterative reconstruction technique. DLP: 1067 mGy-cm ABDOMEN: LOWER CHEST: The visualized lung bases are clear. There is no pleural effusion. CARDIOVASCULATURE: The heart is normal in size. There is no pericardial effusion. LIVER: The liver is normal in size and contour. There is a 9 mm cyst in the left lobe without change. The hepatic and portal veins are patent. GALLBLADDER / BILE DUCTS: The gallbladder is unremarkable. There is no intra or extrahepatic biliary ductal dilatation. SPLEEN: The spleen is normal in size. No focal splenic lesion is identified. PANCREAS: The pancreas is unremarkable in appearance. ADRENAL GLANDS: Within normal limits. KIDNEYS/RETROPERITONEUM: The right kidney demonstrates a striated nephrogram, slightly improved from the prior study, consistent with resolving pyelonephritis. No renal calculi are identified. There is no hydronephrosis. No renal masses are identified. LYMPH NODES: No abdominal or pelvic lymphadenopathy. VASCULATURE: The abdominal aorta is normal in caliber. MESENTERY/PERITONEUM: No free fluid. No masses. There is no free intraperitoneal gas. STOMACH: The stomach is collapsed, limiting evaluation. SMALL BOWEL: The small bowel is normal in caliber. COLON: There is wall thickening and mucosal hyperenhancement of the distal descending and sigmoid colon, consistent with colitis. No extravasation of contrast is seen to suggest active GI bleeding. APPENDIX: The appendix is not seen, however no inflammatory changes are seen adjacent to the cecum . URINARY BLADDER/PELVIC ORGANS: The urinary bladder is unremarkable. The prostate is normal in size. BONES / SOFT TISSUES: No suspicious bony or soft tissue abnormalities. CT/CT gi bleed abd pel wo/w IVcon IMPRESSION: 1. Findings consistent with colitis involving the distal descending and sigmoid colon, which may be inflammatory or infectious in nature. 2. No evidence of contrast extravasation to suggest active GI bleeding. 3. Findings consistent with resolving right pyelonephritis. Electronically signed by: Erich Grossman MD 07/16/2025 10:04 AM EDT
[2025-07-16 07:20] VITALS: BP 114/73; PULSE 121; RESP 18; TEMP 36.7; O2SAT 100; BMI 22.1
--- NOTE | 2025-07-16 07:26 | PC.NURSE ---
Patient called from triage, laying on back bench. Patient stood up and fell to the ground stating he could not walk. Assisted to wheelchair with security
--- OUTSIDE RECORDS SUMMARY | 2025-07-16 07:32 | XMS_ITS | Clinical Summary ---
Author Organization [facility] Address [address] [address] Phone Care Team Providers Care Circular Saw Edge Fuser Name Role Phone Unknown, Unknown Primary Care [...] 2016 INFLUENZA VACCINE (#1) 2025 COVID-19 VACCINE (1 - 2024-2 6 season) 2025 Adult Td,Tdap Booster 08/13/2028 08/13/2018 [...] PARTNERSHIP ACO ACO PARTNERSHIP ACO Care Teams Circular Saw Edge Fuser Relationship Specialty Start Date End Date Unknown, Unknown, PCP - General 07/09/24 Additional Source Comments The information contained in this document represents components of the legal health record. It is not the complete legal health record.[facility]
--- OUTSIDE RECORDS SUMMARY | 2025-07-16 07:32 | XMS_ITS | Clinical Summary ---
Author Organization Formerly [facility] Address [address] [place] [id number] Care Team Providers Care Global Coordinator Name Role Phone Provider, Conversion MD Primary [...] (11/17/2021): Added automatically from request for surgery [id number] GI bleed 11/17/2021 Social History Tobacco Use [...] Required) Completed Medical Devices Implanted Type Area Door Core Assembler Device Identifier Shelf Expiration Date Model / Serial / Lot Resolution Ultra Clip Implanted:Qty: 2 on 11/19/2021 by Abril Machado MD at [facility] [employer] [id number] / / Description:Not an implant. Charging purposes only. Abbie Procedures Procedure Name Priority Date/Time Associated Diagnosis Comments HIV-1 RNA VIRAL LOAD, QUANTITATIVE Routine 11/18/2021 12:15 PM EST from Last 3 Months or Most Recently Relevant to Health Maintenance Results * (ABNORMAL) HIV-1 RNA Viral Load, Quantitative (11/18/2021 12:15 PM EST) HIV-1 RNA (copies/mL) 291,728(H) <30 copies/mL 11/23/2021 2:59 PM EST [facility] HIV-1 RNA (log10) 5.46(H) <1.46 log copies/mL 11/23/2021 2:59 PM EST [facility] Interpretation Detected 11/23/2021 2:59 PM EST [facility] Comment:Performed by FDA elham roved BRAIN Aptima TMA. Linear range is 30 to 10,000,000 copies/mL. HIV Genotyping is not recommended for viral loads below 2,000 copies/mL. Not FDA approved to diagnose HIV infection. Blood specimen (specimen) Plasma specimen / Unknown 11/18/2021 12:15 PM EST 11/18/2021 12:55 PM EST Shani Blankenship MD LAB BLOOD ORDERABLES Final Resu lt [facility] [address] [id number] from Last 3 Months or Most Recently Relevant to Health Maintenance Insurance [address] [id number] Advance Directives * Full Code (Latest Code Status on File) Date Activated Date Inactivated Comments 11/17/2021 12:47 PM Healthcare Agents on File Name Relationship Healthcare Agent Relationship Communication Divya Cramer Adult sibling 4. Next of Kin (Spouse, Adult Child, Parent, Adult Sibling, Grandparent) Care Teams Global Coordinator Relationship Specialty Start Date End Date Provider, MD Divya PCP - General 11/17/21
--- NOTE | 2025-07-16 07:52 | ED.GENADULT ---
HPI - General Adult General Chief complaint: General Medical Stated complaint: Rectal Bleed Time Seen by Provider: 07/16/25 07:41 Source: patient Mode of arrival: other (Uber) Limitations: no limitations History of Present Illness ED Provider: Kasandra Goode PA-C HPI narrative: Patient is stating that he has had 2 weeks of bright red blood per rectum passing clots he denies any trauma or anal intercourse. Past medical history significant for HIV as well as prior GI bleed. He has no prior history of IBD UC or Crohn's. He has not established with a GI specialist. He reports this is the beginning stages of what occurred last time when he had a bleed and had to be transferred to [facility] and was there for a month. He reports he can barely walk due to weakness in the discomfort that is in his abdomen. He last vomited 3 days ago would blood. He denies any alcohol or drugs but does admit to being homeless. He has good contact with his grandmother. Reports having some bread yesterday given to him by his grandmother who but it might help any time he passes bowel blood follows. Patient is unable to share with that intervention was for his GI bleed at [facility] (occurred on 11/17/21). He is not sure if he had any surgery. Onset (ago): week(s) Radiation: back Severity: moderate Quality: aching Pain Consistency: intermittent Relieving factors: none Exacerbating factors: eating Associated symptoms: nausea/vomiting and weakness Treatments prior to arrival: none Related Data Home Medications ?Medication ?Instructions ?Recorded ?Confirmed No Known Home Meds 06/09/25 06/09/25 Allergies Allergy/AdvReac Type Severity Reaction Status Date / Time No Known Allergies Allergy Verified 07/16/25 07:25 Review of Systems Review of Systems: Yes all other systems are reviewed and are negative [facility] Past Medical History Attestation statement: The following information was validated with the patient. Source: old records reviewed and nursing notes reviewed Medical History HIV disease Methamphetamine abuse HIV (human immunodeficiency virus infection) Social History Social History Household Members: Unknown / Unable to assess Household Members Other:: homeless for 1 month, staying with grandma Housing: Unknown / Unable to assess Do you presently have visiting nurse or other home services: No Alcohol intake: current Alcohol intake frequency: holidays/special occasions only Comment: 1:1 Patient Tobacco Use Status: Current everyday Tobacco user Tobacco use type: Smokeless Tobacco Second Hand Smoke Exposure: No Substance Use Type: Amphetamines Physical Exam ED Exam Exam: General: Appears in no acute distress, appears well nourished body habitus is normal, appears stated age. No septic or ill-appearing. Vitals reviewed normal, PMH/Social and Surgical hx reviewed including allergies and current medications. - reviewed for prior visits here and him reviewed as it pertains to similar chief complaint. Head: Normocephalic, no obvious trauma or skin lesions noted. 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 Vital Signs: Vital Signs - 24 hr 07/16/25 07:20 07/16/25 08:39 07/16/25 10:16 Temperature 98.1 F Pulse Rate 121 H 98 Respiratory Rate 18 16 20 Blood Pressure 114/73 117/70 Pulse Oximetry 100 99 Oxygen Delivery Method Room Air Room Air 07/16/25 10:17 Temperature Pulse Rate 98 Respiratory Rate 20 Blood Pressure 109/71 Pulse Oximetry 100 Oxygen Delivery Method Room Air BMI result Body Mass Index 22.1 Medications Administered Discontinued Medications Generic Name Dose Route Start Last Admin Trade Name Freq PRN Reason Stop Dose Admin Hydromorphone HCl 1 mg 07/16/25 10:02 07/16/25 10:16 Hydromorphone Hcl 1 Mg/Ml Syringe IVPUSH 07/16/25 10:03 1 mg ONCE ONE Administration Protocol Lactated Ringer's 1,000 mls @ 999 mls/hr 07/16/25 08:02 07/16/25 10:20 Lr IV 07/16/25 09:02 Infused .Q1H1M ONE Infusion Iohexol 100 ml 07/16/25 09:31 07/16/25 09:32 Iohexol 350 Mg/Ml 100 Ml Infus..Btl IV 07/16/25 09:32 80 ml ONCE ONE Administration Pantoprazole Sodium 40 mg 07/16/25 08:02 07/16/25 08:30 Pantoprazole Sodium 40 Mg/10 Ml Vial IVPUSH 07/16/25 08:03 40 mg ONCE ONE Administration Medical Decision Making Medical Decision Making MDM Narrative: Well appearing 25 year old M here with concerns of GI bleed both upper and lower. Reports BRBPR with every bowel movement for the last 2 weeks. PMH sig for GI bleed, HIV, polysubstance abuse, anorectal fistula, and m2m intercourse. Upon arrival to ED, he is mildly tachycardic and dehydrated, but does not appear septic or toxic. He is afebrile with nontender abdomen saturating 100% on room air and appears in no acute distress. MARGIE does not reveal any obvious blood per rectum small storey stool specks but no significant stool in the vault or anorectal fisuta/abscesses noted No hemorrhoids, sphincter tone strong. He does have a wart like gross aside the perirectal area by proximally 2 cm not on the rectal tissue itself. Lower GI protocol initiated. Discussed patient's code status with him as his a high risk patient for poor outcomes given he is HIV positive and been off or treatment for two months now. He is alert and orientated x4 and it has a GCS of 15. I took the time to go slowly through each section of the MOLST with him; he will be DNI/DR but does agreed to artificial nutrition and is undecided for dialysis and agrees to artificial hydration. He is aware he can change this at anytime should he choose to do another MOLST form in the future. He will be kept NPO while awaiting imaging and labs. Stool occult blood is positive.Not enough stool to send for stool studies. AFter CT, patient reported sig pain, IV dilaudid ordered. Labs show chronic microcytic anemia (iron deficient), H/H 12.5/39.8, WBC 10.[address] scan: IMPRESSION: 1. Findings consistent with colitis involving the distal descending and sigmoid colon, which may be inflammatory or infectious in nature. 2. No evidence of contrast extravasation to suggest active GI bleeding. 3. Findings consistent with resolving right pyelonephritis., consult placed to GI for dispo vs admit GI recommended screening patient's CD4 count as this risks him for CMV colitis. I called lab directly. THis is not a stat test and needs to be send out- turn around time is 3-5 business days. Patient does not want to stay at hospital. He is feeling better and wants to go home. I discussed ER precautions with him and liquid diet only. He will follow up outpatient with infectious disease, PCP and GI. He is stable for discharge. Hospitalist not consulted as he endorsed wanting to go home. Differential Diagnosis Differential Diagnoses: The differential diagnosis associated with the presentation includes See MDM Admission/Observation Consideration of admission/observation: Escalation of care including admission/observation considered Consult Healthcare Provider Management of the patient was discussed with: Preparer Making Department Lab Data MDM Lab Attestation statement: I reviewed the patient's lab results. 07/16/25 08:25 07/16/25 08:25 Labs: Lab Results 07/16/25 07/16/25 07/16/25 Range/Units 08:13 08:25 10:16 WBC 10.9 H (4.8-10.8) X10*3/uL RBC 5.31 (4.60-5.80) X10*6/uL Hgb 12.5 L (14.0-18.0) g/dl Hct 39.8 L (42.0-52.0) % MCV 75.0 L (80.0-98.0) fL MCH 23.5 L (27.0-33.0) pg MCHC 31.4 (31.0-36.0) g/dl RDW 17.5 H (11.0-16.0) % Plt Count 370 (160-400) X10*3/uL MPV 8.7 L (9.4-12.4) fL Immature Gran % (Auto) 0.4 (0.0-0.4) % Neut % (Auto) 58.8 (45-73) % Lymph % (Auto) 26.8 (20-40) % Weakley % (Auto) 13.1 H (2-11) % Eos % (Auto) 0.3 (0-4) % Baso % (Auto) 0.6 (0-2) % Lymph # (Auto) 2.9 (1.2-4.9) X10*3/uL Weakley # (Auto) 1.4 H (0.1-1.2) X10*3/uL Eos # (Auto) 0.0 (0.0-0.4) X10*3/uL Baso # (Auto) 0.1 (0.0-0.2) X10*3/uL Abs Immat Gran (auto) 0.04 H (0.00-0.03) X10*3/uL Absolute Neuts (auto) 6.4 (2.0-8.3) x10*3/uL Absolute Nucleated RBC 0.000 (0.0-0.012) X10*3/uL Nucleated RBC % (auto) 0.0 (0.0-0.2) /100WBC PT 13.0 H (10.9-12.4) SEC INR 1.1 (0.9-1.1) Whole Blood INR Cancelled Sodium 137 (135-145) mmol/L Potassium 3.3 (3.3-5.1) mmol/L Chloride 105 (96-108) mmol/L Carbon Dioxide 24 (22-29) mmol/L Anion Gap 11 L (12-20) BUN 8 L (9-16) mg/dL Creatinine 1.04 (0.5-1.4) mg/dL Estim Creat Clear Calc 102.6 Estimated GFR > 60 POC Glucose 168 H (60-115) mg/dL Random Glucose 139 H (60-115) mg/dL Lactic Acid 1.9 (0.5-2.0) mmol/L Calcium 8.7 (8.4-10.2) mg/dL Magnesium 1.7 (1.6-2.6) mg/dL Iron 14 L (45-160) mcg/dL TIBC 271 (228-428) mcg/dL % Saturation 5 L (15-50) % Unsat Iron Binding 257 ug/dL Ferritin 46 (20-250) ng/mL Total Bilirubin 0.3 (0.0-1.0) mg/dL Direct Bilirubin 0.1 (0.0-0.5) mg/dL AST 20 (5-37) U/L ALT 15 (0-40) U/L Alkaline Phosphatase 78 (39-117) U/L Total Protein 7.6 (6.5-8.0) g/dL Albumin 3.7 (3.5-5.0) g/dL Stool Occult Blood POSITIVE (NEGATIVE) Blood Type A Positive Antibody Screen NEGATIVE Independent Interpretation I performed an independent interpretation of an: CT Scan Radiology Impression Discussion of test interpretation with radiology: I have reviewed the radiologist's reading. External Record Review External record reviewed: Inpatient record, Outpatient record and Prior outpatient labs Prescription Management I considered prescription management with: Antiviral and Antibiotic Chronic Conditions Patient?s care impacted by: Other (HIV) Social Determinants Patient?s care significantly limited by Social Determinants of Health including: Inadequate housing, Low income, Problems related to primary support group and Other Social Determinant of Health HE has plans to stay withhis grandmother for now. Critical Care Time Critical Care Time Critical Care Time: Yes Total Critical Care Time: 60 Attestation: 60 minutes spent evaluating the patient, which may include speaking with EMS prehospital personnel and family, interpreting studies, discussing the case with consultants or admitting teams, retrieving data and reviewing charts, documenting the visit, and performing bundled procedures independent of separately billed procedures.?? Discharge Plan Discharge Clinical Impression: Colitis, Hematochezia, Anemia, iron deficiency, HIV (human immunodeficiency virus infection) Patient Disposition: Home, Self-Care Instructions: Colitis (ED) Additional Instructions: You were seen in emergency department today with concerns of bleed. Your imaging did not show this and you had no blood on rectal exam. Your imaging showed inflammation of your colon. We discussed the risk of this being infectious especially given you have not been on HIV supressive medication for the last two months. You have declined to be admitted. I have ordered CD4 count, however this result is not available for 3-5 business days, meaning we may not have this result until next Sat or Saturday. I have referred you to our local Infectious Disease office. Please call to schedule an appt to restart your medication and follow up on your CD4 count as well as with your PCP. If you feel worse, please return to ER immediately. Please follow the following diet below as long as tolerable: Stage 1: Clear Liquid Diet (First 1?2 days) This gives your bowel time to rest and reduce inflammation. Allowed: Water Broth (chicken, beef, or vegetable) Clear juices (apple, grape?not orange) Gelatin (no added fruit Ice pops (no chunks or pulp) Tea or coffee (no cream) Avoid: Solid food Milk or dairy (at this stage) Stage 2: Low-Fiber Diet (Once symptoms improve, usually after 1?3 days) This eases the transition back to normal eating while minimizing irritation. Recommended foods: White rice, plain pasta, white bread Cooked or canned vegetables (no seeds or skins) Bananas, applesauce, melon Lean proteins (eggs, skinless chicken, fish) Low-fat dairy (yogurt, milk, cheese?if tolerated) Avoid: Raw fruits and vegetables Whole grains Nuts, seeds, popcorn Legumes (beans, lentils) Tough or fatty meats Stage 3: Gradual Return to High-Fiber Diet (After full recovery) Once symptoms resolve and inflammation clears (typically within a week), fiber is gradually reintroduced to help prevent future attacks. Add slowly: Whole grains (brown rice, oats, whole wheat) Fresh fruits and vegetables (peeled at first) Beans and legumes (in small amounts) Plenty of fluids (to help fiber move through the gut) Tips: Eat smaller meals more frequently during recovery. Avoid alcohol, spicy foods, and caffeine early on?they can irritate the gut. Stay hydrated?water is essential for bowel healing. Prescriptions: No Action No Known Home Meds Referrals: [facility] [Provider Group, Infectious Disease] Referral Note: restart HIV supressive medication, follow up with CD4 count Real Hightower MD [Primary Care Provider, Internal Medicine] Referral Note: follow up with CD4 count, ensure recovery from colitis Interventions: ED Discharge Assessment Last Done: 07/16/25 12:28 Discharge Date/Time: 07/16/25 12:59 Print Language: Macedonian
[2025-07-16 08:16] LABS: Glucose, Whole Blood 168 mg/dL (60-115)
[2025-07-16 08:31] LABS: MANUAL DIFF FLAG NO
[2025-07-16] MEDS: Lactated Ringers 1,000 ML 999 ML IV (08:31)
[2025-07-16 08:38] LABS: Hematocrit 39.8 % (42.0-52.0); Hemoglobin 12.5 g/dl (14.0-18.0); Imm Gran Abs Auto 0.04 X10*3/uL (0.00-0.03); Imm Gran Pct Auto 0.4 % (0.0-0.4); Lymphocytes Absolute Auto 2.9 X10*3/uL (1.2-4.9); Mean Corpuscular HGB Conc 31.4 g/dl (31.0-36.0); Mean Corpuscular Hemoglobin 23.5 pg (27.0-33.0); Mean Corpuscular Volume 75.0 fL (80.0-98.0); NRBC Abs Auto 0.000 X10*3/uL (0.0-0.012); NRBC Pct Auto 0.0 /100WBC (0.0-0.2); Platelet Count 370 X10*3/uL (160-400); Red Blood Count 5.31 X10*6/uL (4.60-5.80); White Blood Count 10.9 X10*3/uL (4.8-10.8)
[2025-07-16 08:39] VITALS: BP 117/70; PULSE 98; RESP 16; O2SAT 99
[2025-07-16 08:45] LABS: INTERNATIONAL NORM RATIO 1.1 (0.9-1.1); Prothrombin Time 13.0 SEC (10.9-12.4)
[2025-07-16 09:00] LABS: Alanine Aminotransferase 15 U/L (0-40); Albumin Level 3.7 g/dL (3.5-5.0); Alkaline Phosphatase 78 U/L (39-117); Anion Gap 11 (12-20); Aspartate Amino Transferase 20 U/L (5-37); Blood Urea Nitrogen 8 mg/dL (9-16); Calcium 8.7 mg/dL (8.4-10.2); Carbon Dioxide 24 mmol/L (22-29); Chloride 105 mmol/L (96-108); Creatinine Clr Calc Pharmacy 102.6; Estimated Glomerular Filt Rate > 60; Iron 14 mcg/dL (45-160); Magnesium 1.7 mg/dL (1.6-2.6); Percent Iron Saturation 5 % (15-50); Potassium 3.3 mmol/L (3.3-5.1); Sodium 137 mmol/L (135-145); Total Iron Binding Capacity 271 mcg/dL (228-428); Total Protein 7.6 g/dL (6.5-8.0); Unsaturated Iron Binding 257 ug/dL
[2025-07-16 09:15] LABS: Ferritin 46 ng/mL (20-250)
[2025-07-16] MEDS: iohexoL 350 MG/ML 100 ML INFUS..BTL IV (09:32)
[2025-07-16 10:16] VITALS: RESP 20
[2025-07-16 10:17] VITALS: BP 109/71; PULSE 98; RESP 20; O2SAT 100
[2025-07-16 10:30] LABS: OBS Int Ctl Valid YES; OBS1 POSITIVE (NEGATIVE)
[2025-07-16 12:28] VITALS: BP 109/71; PULSE 98; RESP 20; TEMP 36.6; O2SAT 100
[2025-07-22 00:18] LABS: Absolute CD3 Count 2419 cells/uL (840-3060); Absolute CD8 Count 1957 cells/uL (180-1170); Percent CD3 Cells 72 % (57-85); Percent CD8 Cells 58 % (12-42)
== END 2025-07-16 12:59 | disposition home or self-care (01) ==
PROVIDERS: Physician Assistant Medical; Emergency Provider Emergency Medicine; PCP Internal Medicine
DX: K52.9 Noninfective gastroenteritis and colitis, unspecified (principal); K92.1 Melena; D50.9 Iron deficiency anemia, unspecified; B20 Human immunodeficiency virus [HIV] disease
CPT/HCPCS: 36415; 74178; 80048; 80076; 82272; 82728; 82947; 83540; 83605; 83735; 85025; 85610; 86359; 86360; 86850; 86900; 86901; 96361; 96374; 96375; 99284; J1171; J2470; J7120; Q9967

== ENCOUNTER → 2025-07-16 08:02 | Outpatient (BNV) | payer OTHER, SELFPAY | PROVIDERS: Emergency Provider Emergency Medicine; PCP Internal Medicine; Visit Provider Radiology Diagnostic Radiology | DX: K92.2 Gastrointestinal hemorrhage, unspecified (principal) | CPT/HCPCS: 74178 ==

== ENCOUNTER 2025-07-21 18:23 | Inpatient (IN) | payer OTHER, SELFPAY ==
--- NOTE | 2025-07-21 | ECG_ITS ---
Test Reason : CHEST PAIN Blood Pressure : */* mmHG Vent. Rate : 86 BPM Atrial Rate : 86 BPM P-R Int : 106 ms QRS Dur : 92 ms QT Int : 368 ms P-R-T Axes : 77 82 52 degrees QTcB Int : 440 ms Sinus rhythm with sinus arrhythmia with short TX Otherwise normal ECG When compared with ECG of 09-Jun-2025 08:02, ST no longer depressed in Inferior leads Referred By: Generic ED Physician Electronically Signed By: Hemant Wong
--- NOTE | ~2025-07-21 | CT_ITS ---
CLINICAL HISTORY: abdominal pain,rectal bleed, colitis CT abdomen and pelvis with contrast Comparison: CT/REG/SR - CT ABDOMEN PELVIS WITHOUT THEN WITH IV CONTRAST - 07/16/25 09:23 EDT Findings: CT abdomen: Lung bases are clear. No acute bony abnormality. Unchanged cysts within the anterior left lobe of the liver. Liver is otherwise unremarkable. Main portal vein is patent. Spleen is unremarkable. No pancreatic mass or peripancreatic inflammatory stranding. Prominent distention of the gallbladder measuring 5.6 cm in transverse measurement. No calcified gallstones or gallbladder wall thickening identified. No pericholecystic fluid. Adrenal glands are unremarkable. Persistent areas of striated enhancement of the cortex of the right kidney, especially within the upper pole. No renal or ureteral calculi identified. Left kidney is unremarkable. Small bowel loops are of normal caliber. No free fluid or free air. CT pelvis: Moderate stool throughout the colon. Wall thickening of the distal sigmoid colon extending into the rectum. No discrete mass lesion identified. No other areas of colonic wall thickening are identified. No findings of appendicitis. No free fluid or free air. IMPRESSION: 1. Wall thickening of the distal sigmoid colon and rectum suggesting proctocolitis. This is presumably the etiology of the patient's rectal bleeding. No discrete mass or active contrast extravasation identified. 2. No findings of bowel obstruction. 3. Persistent abnormal enhancement of the right kidney suggesting persistent pyelonephritis or sequelae of right-sided pyelonephritis. Correlation with clinical symptoms suggested. This document has been electronically signed by: Jeff Pollock MD on 07/22/2025 01:52:11
[2025-07-21 18:26] VITALS: BP 142/100; BP 147/91; PULSE 80; PULSE 85; RESP 17; O2SAT 100; BMI 22.1
--- NOTE | 2025-07-21 19:08 | PC.NURSE ---
assumed care of pt, RN before unable to get Iv started. Provider advised of pt increased pain. pt reports increased chest pain, HR 85 normal sinus, SP02 96% on room air.
--- NOTE | 2025-07-21 19:14 | ED.CHESTPAIN ---
HPI - Chest Pain General Chief Complaint: Chest Pain Stated Complaint: ABD PAIN Time Seen by Provider: 07/21/25 19:14 Source: patient Mode of arrival: ambulatory Limitations: other (Cooperation) History of Present Illness ED Provider: Dr. Brunner [facility] narrative: This is a 25-year-old male history of cholecystitis, HIV, depression, pyelonephritis which she did not complete treatment for pyelonephritis and left AMA previous hospital admission presented hospital today for evaluation of diffuse abdominal pain. Patient stated that his belly pain is diffusely. He does feel distended. He stated that it is inflammation in his abdomen. He normally gets inflammation in his abdomen. This feels exactly the same way. Patient is a extremely difficult historian. He appears to be hyperactive on exam. The patient stated that he refuses any lab until he gets pain medicine. Related Data Home Medications ?Medication ?Instructions ?Recorded ?Confirmed No Known Home Meds 06/09/25 06/09/25 Allergies Allergy/AdvReac Type Severity Reaction Status Date / Time No Known Allergies Allergy Verified 07/21/25 18:30 Review of Systems Review of Systems: Pertinent review of systems as mentioned in [facility]. All other system otherwise negative. [facility] Past Medical History [facility] Narrative: Medical history as mentioned in [facility] Medical History HIV disease Methamphetamine abuse HIV (human immunodeficiency virus infection) Social History Social History Household Members: Unknown / Unable to assess Household Members Other:: homeless for 1 month, staying with grandma Housing: Unknown / Unable to assess Do you presently have visiting nurse or other home services: No Alcohol intake: current Alcohol intake frequency: holidays/special occasions only Comment: 1:1 Patient Tobacco Use Status: Current everyday Tobacco user Tobacco use type: Smokeless Tobacco Smoked in Last 30 Days: Yes Second Hand Smoke Exposure: No Use of substances other than those prescribed or required for medical reasons: No Substance Use Type: Amphetamines Advance Directives: No Advance Directives Information Provided: Yes Do you have a plan to hurt others: No Plan Physical Exam Exam: Exam: General: patient is very hyperactive, yelling out loud Head: Normacephalic, atraumatic ENT: oral mucosa moist, neck supple, no tracheal deviation Cardiovascular: regular rate, regular rhythm, no murmurs, rubbing, gallops Respiratory: CTAB, no wheeze, rales, rhonchi Gastrointestinal: Soft, diffuse abdominal tenderness on palpation Extremities: No limb pain or swelling, no calf tenderness Neurological: Awake and alert, no facial droop noted Skin: Warm and dry Psychiatric: Appears hyperactive perhaps manic Vital Signs: Vital Signs: Last Vital Signs Temp 98.2 F 07/21/25 22:10 Pulse 92 07/21/25 22:10 Resp 18 07/21/25 22:10 BP 162/83 H 07/21/25 22:10 Pulse Ox 96 07/21/25 22:10 O2 Del Method Room Air 07/21/25 22:10 BMI result Body Mass Index 22.1 Course Reevaluation(s) Reevaluation #1: I assumed care for this patient at 21:00, 25-year-old male came in with abdominal pain, nausea, vomiting, bloody watery diarrhea, bright red blood per rectum x3 days. Patient met sirs criteria, patient is refusing blood culture and lactic acid blood draw. CT is consistent with colitis received IV fluids, antibiotic. Will admit for further medical evaluation. Time: 02:21 Medications Administered Discontinued Medications Generic Name Dose Route Start Last Admin Trade Name Freq PRN Reason Stop Dose Admin Al Hydroxide/Mg Hydroxide 30 ml 07/21/25 19:13 07/21/25 19:46 Magnesium Hydrox/Alum Hydrox 30 Ml Oral.Susp PO 07/21/25 19:14 30 ml ONCE ONE Administration Famotidine 20 mg 07/21/25 19:13 07/21/25 20:02 Famotidine/Pf 20 Mg/2 Ml Vial IVPUSH 07/21/25 19:14 20 mg ONCE ONE Administration Hydromorphone HCl 1 mg 07/22/25 00:11 07/22/25 00:19 Hydromorphone Hcl 1 Mg/Ml Syringe IVPUSH 07/22/25 00:12 1 mg ONCE ONE Administration Protocol Hydroxyzine HCl 25 mg 07/21/25 19:52 07/21/25 20:02 Hydroxyzine Hcl 25 Mg Tablet PO 07/21/25 19:53 25 mg ONCE ONE Administration Sodium Chloride 1,000 mls @ 999 mls/hr 07/21/25 19:30 07/21/25 21:41 Ns IV 07/21/25 20:30 Infused .Q1H1M DEVON Infusion Iohexol 85 ml 07/21/25 23:44 07/21/25 23:44 Iohexol 350 Mg/Ml 100 Ml Infus..Btl IV 07/21/25 23:45 85 ml ONCE ONE Administration Ketorolac Tromethamine 30 mg 07/22/25 00:11 07/22/25 00:19 Ketorolac Tromethamine 30 Mg/Ml Vial IVPUSH 07/22/25 00:12 30 mg ONCE ONE Administration Lidocaine HCl 15 ml 07/21/25 19:13 07/21/25 19:46 Lidocaine Hcl Viscous 2 % 15 Ml Solution MUCOUS MEM 07/21/25 19:14 15 ml ONCE ONE Administration Morphine Sulfate 4 mg 07/21/25 20:52 07/21/25 21:05 Morphine Sulfate 4 Mg/Ml Cartridge IVPUSH 07/21/25 20:53 4 mg ONCE ONE Administration Protocol Ondansetron HCl 4 mg 07/21/25 19:13 07/21/25 20:02 Ondansetron Hcl 4 Mg/2 Ml Vial IVPUSH 07/21/25 19:14 4 mg ONCE ONE Administration Medical Decision Making Medical Decision Making [facility] Narrative: This is a 25-year-old male history of cholecystitis, HIV, pyelonephritis presented hospital today for evaluation of diffuse abdominal pain. Patient is a very poor historian due to likely a psychiatric condition. Patient is complaining of diffuse abdominal pain. Certainly my differential may be gastroenteritis versus colitis. Patient was recently admitted 2 months ago for pyelonephritis and left against medical advice then. We will obtain abdominal lab work on the patient including CBC CMP lipase. UA will be obtained as well. We will plan to give patient some IV Pepcid. GI cocktail, IV Zofran. We will treat for possible gastritis. Patient stated that he has inflammation of the stomach in the past and this feels exactly like it. Patient still remains in pain. A dose IV morphine will be given to the patient. IV fluid initiated for the patient does time. We will add a drug screen on for the patient due to his current mood. Patient will be signed out to oncoming provider pending reassessment after medication and lab work. Differential Diagnosis Differential Diagnoses: The differential diagnosis associated with the presentation includes Gastritis, colitis, cystitis, cholecystitis Lab Data MDM Lab Attestation statement: I reviewed the patient's lab results. 07/21/25 19:52 07/21/25 23:10 Labs: Lab Results 07/21/25 07/21/25 07/21/25 Range/Units 19:52 21:48 23:08 WBC 13.9 H (4.8-10.8) X10*3/uL RBC 6.03 H (4.60-5.80) X10*6/uL Hgb 14.1 (14.0-18.0) g/dl Hct 45.0 (42.0-52.0) % MCV 74.6 L (80.0-98.0) fL MCH 23.4 L (27.0-33.0) pg MCHC 31.3 (31.0-36.0) g/dl RDW 18.6 H (11.0-16.0) % Plt Count 441 H (160-400) X10*3/uL MPV 8.5 L (9.4-12.4) fL Immature Gran % (Auto) 0.9 H (0.0-0.4) % Neut % (Auto) 76.4 H (45-73) % Lymph % (Auto) 15.1 L (20-40) % [place] % (Auto) 7.1 (2-11) % Eos % (Auto) 0.1 (0-4) % Baso % (Auto) 0.4 (0-2) % Lymph # (Auto) 2.1 (1.2-4.9) X10*3/uL [place] # (Auto) 1.0 (0.1-1.2) X10*3/uL Eos # (Auto) 0.0 (0.0-0.4) X10*3/uL Baso # (Auto) 0.1 (0.0-0.2) X10*3/uL Abs Immat Gran (auto) 0.12 H (0.00-0.03) X10*3/uL Absolute Neuts (auto) 10.7 H (2.0-8.3) x10*3/uL Absolute Nucleated RBC 0.000 (0.0-0.012) X10*3/uL Nucleated RBC % (auto) 0.0 (0.0-0.2) /100WBC Sodium (135-145) mmol/L Potassium (3.3-5.1) mmol/L Chloride (96-108) mmol/L Carbon Dioxide (22-29) mmol/L Anion Gap (12-20) BUN (9-16) mg/dL Creatinine (0.5-1.4) mg/dL Estim Creat Clear Calc Estimated GFR Random Glucose (60-115) mg/dL Calcium (8.4-10.2) mg/dL Total Bilirubin Cancelled Direct Bilirubin Cancelled AST Cancelled ALT Cancelled Alkaline Phosphatase Cancelled Troponin I High Sens < 2.7 (<3.5-35.0) ng/L Total Protein Cancelled Albumin Cancelled Lipase Cancelled Urine Color Yellow Urine Appearance Clear Urine pH >= 9.0 (5.0-9.0) Ur Specific [place] 1.020 (1.005-1.025) Urine Protein Trace (Neg-Trace) mg/dL Urine Glucose (UA) Negative (Negative) mg/dL Urine Ketones Negative (Negative) mg/dL Urine Blood Negative (Negative) Urine Nitrite Negative (Negative) Ur Leukocyte Esterase Negative (Negative) Stool Occult Blood POSITIVE (NEGATIVE) Urine Opiates Screen Not Detected (Not Detect) Ur Buprenorphine Scrn Not Detected (Not Detect) ng/mL Ur Oxycodone Screen Not Detected (Not Detect) ng/mL Urine Methadone Screen Not Detected (Not Detect) ng/mL Urine Fentanyl Screen Not Detected (Not Detect) Ur Barbiturates Screen Not Detected (Not Detect) Ur Phencyclidine Scrn Not Detected (Not Detect) Ur Amphetamines Screen POSITIVE H (Not Detect) U Benzodiazepines Scrn Not Detected (Not Detect) Urine Cocaine Screen Not Detected (Not Detect) U Marijuana (THC) Screen Not Detected (Not Detect) 07/21/25 Range/Units 23:10 WBC (4.8-10.8) X10*3/uL RBC (4.60-5.80) X10*6/uL Hgb (14.0-18.0) g/dl Hct (42.0-52.0) % MCV (80.0-98.0) fL MCH (27.0-33.0) pg MCHC (31.0-36.0) g/dl RDW (11.0-16.0) % Plt Count (160-400) X10*3/uL MPV (9.4-12.4) fL Immature Gran % (Auto) (0.0-0.4) % Neut % (Auto) (45-73) % Lymph % (Auto) (20-40) % [place] % (Auto) (2-11) % Eos % (Auto) (0-4) % Baso % (Auto) (0-2) % Lymph # (Auto) (1.2-4.9) X10*3/uL [place] # (Auto) (0.1-1.2) X10*3/uL Eos # (Auto) (0.0-0.4) X10*3/uL Baso # (Auto) (0.0-0.2) X10*3/uL Abs Immat Gran (auto) (0.00-0.03) X10*3/uL Absolute Neuts (auto) (2.0-8.3) x10*3/uL Absolute Nucleated RBC (0.0-0.012) X10*3/uL Nucleated RBC % (auto) (0.0-0.2) /100WBC Sodium 136 (135-145) mmol/L Potassium 4.2 D (3.3-5.1) mmol/L Chloride 105 (96-108) mmol/L Carbon Dioxide 22 (22-29) mmol/L Anion Gap 13 (12-20) BUN 7 L (9-16) mg/dL Creatinine 0.67 (0.5-1.4) mg/dL Estim Creat Clear Calc 159.3 Estimated GFR > 60 Random Glucose 107 (60-115) mg/dL Calcium 8.9 (8.4-10.2) mg/dL Total Bilirubin 0.2 Direct Bilirubin < 0.2 AST 63 H ALT 34 Alkaline Phosphatase 82 Troponin I High Sens (<3.5-35.0) ng/L Total Protein 8.4 H Albumin 4.2 Lipase 9 Urine Color Urine Appearance Urine pH (5.0-9.0) Ur Specific [place] (1.005-1.025) Urine Protein (Neg-Trace) mg/dL Urine Glucose (UA) (Negative) mg/dL Urine Ketones (Negative) mg/dL Urine Blood (Negative) Urine Nitrite (Negative) Ur Leukocyte Esterase (Negative) Stool Occult Blood (NEGATIVE) Urine Opiates Screen (Not Detect) Ur Buprenorphine Scrn (Not Detect) ng/mL Ur Oxycodone Screen (Not Detect) ng/mL Urine Methadone Screen (Not Detect) ng/mL Urine Fentanyl Screen (Not Detect) Ur Barbiturates Screen (Not Detect) Ur Phencyclidine Scrn (Not Detect) Ur Amphetamines Screen (Not Detect) U Benzodiazepines Scrn (Not Detect) Urine Cocaine Screen (Not Detect) U Marijuana (THC) Screen (Not Detect) Discharge Plan Discharge Clinical Impression: Colitis, BRBPR (bright red blood per rectum) Abdominal pain Qualifiers: Abdominal location: generalized Qualified Code(s): R10.84 - Generalized abdominal pain Patient Disposition: Admitted As Inpatient Print Language: Albanian
--- NOTE | 2025-07-21 19:31 | PC.NURSE ---
pt yelling, crying stating he is in pain, provider saw him he states he wants medication for pain. This Rn attempting to place IV, unsuccessful, pt reports we are hurting him on purpose. I advised provider would come in to pace IV with ultra sound, security called to speak with pt as he was yelling aggressively and disrupting care.
--- OUTSIDE RECORDS SUMMARY | 2025-07-21 19:36 | XMS_ITS | Clinical Summary ---
Author Organization [employer] Address [address] [place] [address] Care Team Providers Care Straw Hat Brusher Name Role Phone Unavailable Primary Care Provider [...]
--- OUTSIDE RECORDS SUMMARY | 2025-07-21 19:36 | XMS_ITS | Encounter Summary ---
Author Organization [employer] Address [address] [place] [address] Care Team Providers Care Hide Splitter Name Role Phone Unavailable Primary Care Provider Unavailabl e Encounter Details Date Type Department Care Team (Latest Contact Info) Description 04/02/2019 Abstract C CONVERSIONS Dental, Provider, DDS Social History Tobacco [...]
--- OUTSIDE RECORDS SUMMARY | 2025-07-21 19:36 | XMS_ITS | Clinical Summary ---
Author Organization [facility] Address [address] [address] Phone Care Team Providers Care Vp Scientific Name Role Phone Unknown, Unknown Primary Care [...] PARTNERSHIP ACO ACO PARTNERSHIP ACO Care Teams Vp Scientific Relationship Specialty Start Date End Date Unknown, Unknown, PCP - General 07/09/24 Additional Source Comments The information contained in this document represents components of the legal health record. It is not the complete legal health record.[facility]
--- OUTSIDE RECORDS SUMMARY | 2025-07-21 19:36 | XMS_ITS | Clinical Summary ---
Author Organization [facility] Address [address] [place] [phone] Phone Care Team Providers Care Central Control Room Operator Name Role Phone Real Hightower MD Primary Care Provider [phone] Allergies No known active allergies Medications No known medications Active Problems Problem Noted Date Diagnosed Date Attention deficit disorder of adult with hyperac tivity 09/24/2024 Cocaine use disorder ([facility] V24, [facility] V28) 09/24/2024 Colitis 09/24/2024 HIV disease ([facility] V24, [facility] V28) STD (sexually transmitted disease) 09/24/2024 Depression 09/24/2024 Psychiatric problem 07/10/2024 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[facility] V24, [facility] V28) 07/2022 PTSD (post-traumatic stress disorder) 11/24/2021 Schizophrenia ([facility] V24, [facility] V28) 022 GI bleed 11/17/2021 Rectal bleeding 11/17/2021 Overview (09/24/2024): Added automatically from request for surgery [id number] HIV (human immunodeficiency virus infection) ([facility] V24, [facility] V28) 10/08/2018 Marijuana use 11/05/2017 Depression Overview (07/21/2024): DX:Depression Marijuana use Overview (07/21/2024): DX:Marijuana use 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[facility] V24) Encounters Date Type Department Care Team Description 06/10/2025 7:37 PM EDT - 06/10/2025 8:[address] [facility] Emergency [address] [place] [phone] Discharge Disposition: Home or Self Care 05/31/2025 11:00 AM EDT Consult [facility] [address] [place] [phone] Julianne Hillman MD HIV disease ([facility] V24, [facility] V28) (Primary Dx); Seizure cerebral ([facility] V24, [facility] V28); Attention deficit disorder of adult with hyperactivity; Psychiatric problem; 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[facility] V24, [facility] V28) 05/11/2025 1:00 PM EDT Office Visit [facility] Hematology Oncology [address] [place] [address] Keke Fish PA Normocytic anemia from Last 3 Months Immunizations Immunization Administration Dates Next Due HPV 9-valent (Gardisil) [...] use 11/05/2017 DX:Marijuana use Depression DX:Depression Seizures ([facility] V24, [facility] V28) Family History Medical History Relation Name [...] Sign Reading Time Taken Comments Blood Pressure 197/169 06/10/2025 7:48 PM EDT RN was notified. Pulse 115 06/10/2025 7:48 PM EDT RN was notified. Temperature 39.4 C (102.9 F) 06/10/2025 7:48 PM EDT RN was notified. Respiratory Rate 18 06/10/2025 7:48 PM EDT Oxygen Saturation 100% 06/10/2025 7:4 8 PM EDT Inhaled Oxygen Concentration - - Weight 69.4 kg (153 lb) 06/10/2025 7:48 PM EDT Height 175.3 cm (5' 9 ) 06/10/2025 7:48 PM EDT Body Mass Index 22.59 06/10/2025 7:48 PM EDT Plan of Treatment Upcoming Encounters Date Type Department Care Team (Late st Contact Info) Description 09/30/2025 10:30 AM EST Office Visit [facility] [address] [place] [phone] Julianne Hillman MD [address] [place] [address] Health Maintenance Due Date Last Done Comments COVID-19 Vaccine (#1) 2003 Meningococcal ACWY Vaccine (2 - Risk 2-dose series) 01/06/2016 11/11/2015 MMR Vaccines (1 of 2 - Risk 2-dose series) 2016 Hepatitis B Vaccines (1 of 3 - 19+ 3-dose series) 2017 Pneumococcal Vaccine: Pediatrics (0 to 5 Years) and At-Risk Patients (6 to 49 Years) (2 of 2 - PPSV23, PCV20, or PCV21) 01/14/2019 11/19/2018 Social Influencers of Health Screening [...] Procedure Name Priority Date/Time Associated Diagnosis Comments EXTERNAL CT REPORT 06/09/2025 HEPATITIS C ANTIBODY Routine 01/06/2025 12:49 PM EDT Seizures ([facility] V24, [facility] V28) Gall stones PTSD (post-traumatic stress disorder) Preventative health care Possible exposure to STD LIPID PANEL WITH REFLEX TO DIRECT LDL Routine 01/06/2025 12:49 PM EDT Seizures ([facility] V24, [facility] V28) Gall stones PTSD (post-traumatic stress disorder) Preventative health care Possible exposure to STD from Last 3 Months or Most Recently Relevant to Health Maintenance Results * External CT Report (06/09/2025) Anatomical Region Laterality Modality Computed Tomogra phy us Provider [facility] CT PROCEDURES Final Result * (ABNORMAL) Hepatitis C antibody (01/06/2025 12:49 PM EDT) [facility] Hepatitis C Antibody Positive (A) Negative LAB CHEMISTRY METHOD 01/06/2025 4:52 PM EDT [facility] Comment:If confirmation of t his positive HCV Ab screening test is needed, please redraw and order HCV Viral Load. Note--> This test may not be added on due to different specimen requirements. Blood Venous blood specimen / Unknown Venipuncture / Unknown 01/06/2025 12:49 PM EDT 01/06/2025 1:47 PM EDT Real Hightower MD LAB BLOOD ORDERABLES Final Resul t [facility] [address] [place] [address], [place] [phone] * (ABNORMAL) Lipid panel with reflex to direct LDL (01/06/2025 12:49 PM EDT) [facility] Cholesterol 107 0 - 200 mg/dL LAB CHEMISTRY METHOD 01/06/2025 3:08 PM EDT [facility] Triglycerides 90 0 - 150 mg/dL LAB CHEMISTRY METHOD 01/06/2025 3:08 PM EDT [facility] HDL 36(L) >=40 mg/dL LAB CHEMISTRY METHOD 01/06/2025 3:08 PM EDT [facility] LDL Calculated 53 0 - 100 mg/dL LAB CHEMISTRY METHOD 01/06/2025 3:08 PM EDT [facility] VLDL Cholesterol Jacob 18 mg/dL LAB CHEMISTRY METHOD 01/06/2025 3:08 PM EDT [facility] Non HDL Chol. (LDL+VLDL) 71 <145 mg/dL LAB CHEMISTRY METHOD 01/06/2025 3:08 PM EDT [facility] Chol/HDL Ratio 3.0 0.0 - 4.4 LAB CHEMISTRY METHOD 01/06/2025 3:08 PM EDT [facility] Blood Venous blood specimen / Unknown Venipuncture / Unknown 01/06/2025 12:49 PM EDT 01/06/2025 1:47 PM EDT us Real Hightower MD LAB BLOOD ORDERABLES Final Resul t [facility] [address] [place] [address], from Last 3 Months or Most Recently Relevant to Health Maintenance Insurance [facility] [employer] Care Teams Central Control Room Operator Relationship Specialty Start Date End Date Real Hightower MD [address] [place] [id number] PCP - General 02/22/23
--- OUTSIDE RECORDS SUMMARY | 2025-07-21 19:36 | XMS_ITS | Clinical Summary ---
Author Organization [facility] Address [address] [place] [id number] Care Team Providers Care Worm Farmer Name Role Phone Provider, Conversion MD Primary [...] (11/17/2021): Added automatically from request for surgery [id number] GI bleed 11/17/2021 Social History Tobacco Use [...] Required) Completed Medical Devices Implanted Type Area Firer Powerhouse Device Identifier Shelf Expiration Date Model / Serial / Lot Resolution Ultra Clip Implanted:Qty: 2 on 11/19/2021 by Abril Machado MD at [facility] [employer] [id number] / / Description:Not an implant. Charging purposes only. Abbie Procedures Procedure Name Priority Date/Time Associated Diagnosis Comments HIV-1 RNA VIRAL LOAD, QUANTITATIVE Routine 11/18/2021 12:15 PM EST from Last 3 Months or Most Recently Relevant to Health Maintenance Results * (ABNORMAL) HIV-1 RNA Viral Load, Quantitative (11/18/2021 12:15 PM EST) HIV-1 RNA (copies/mL) 291,728(H) <30 copies/mL 11/23/2021 2:59 PM EST [facility] HIV-1 RNA (log10) 5.46(H) <1.46 log copies/mL 11/23/2021 2:59 PM EST [facility] Interpretation Detected 11/23/2021 2:59 PM EST [facility] Comment:Performed by FDA elham roved [employer] Aptima TMA. Linear range is 30 to 10,000,000 copies/mL. HIV Genotyping is not recommended for viral loads below 2,000 copies/mL. Not FDA approved to diagnose HIV infection. Blood specimen (specimen) Plasma specimen / Unknown 11/18/2021 12:15 PM EST 11/18/2021 12:55 PM EST Shani Blankenship MD LAB BLOOD ORDERABLES Final Resu lt [facility] [address] [address] from Last 3 Months or Most Recently Relevant to Health Maintenance Insurance Advance Directives * Full Code (Latest Code Status on File) Date Activated Date Inactivated Comments 11/17/2021 12:47 PM Healthcare Agents on File Name Relationship Healthcare Agent Relationship Communication Divya Cramer Adult sibling 4. Next of Kin (Spouse, Adult Child, Parent, Adult Sibling, Grandparent) Care Teams Worm Farmer Relationship Specialty Start Date End Date Provider, Conversion, PCP - General 11/17/21
[2025-07-21] MEDS: Lidocaine HCl Viscous 2 % 15 ML SOLUTION MUCOUS MEM (19:46)
[2025-07-21] MEDS: Magnesium Hydrox/Alum Hydrox 30 ML ORAL.SUSP PO (19:46)
[2025-07-21 19:59] LABS: MANUAL DIFF FLAG NO
[2025-07-21 20:02] LABS: Hematocrit 45.0 % (42.0-52.0); Hemoglobin 14.1 g/dl (14.0-18.0); Imm Gran Abs Auto 0.12 X10*3/uL (0.00-0.03); Imm Gran Pct Auto 0.9 % (0.0-0.4); Lymphocytes Absolute Auto 2.1 X10*3/uL (1.2-4.9); Mean Corpuscular HGB Conc 31.3 g/dl (31.0-36.0); Mean Corpuscular Hemoglobin 23.4 pg (27.0-33.0); Mean Corpuscular Volume 74.6 fL (80.0-98.0); NRBC Abs Auto 0.000 X10*3/uL (0.0-0.012); NRBC Pct Auto 0.0 /100WBC (0.0-0.2); Platelet Count 441 X10*3/uL (160-400); Red Blood Count 6.03 X10*6/uL (4.60-5.80); White Blood Count 13.9 X10*3/uL (4.8-10.8)
--- NOTE | 2025-07-21 20:20 | MHC.EDTECH ---
PT refused lab draw, RN/provider aware
--- NOTE | 2025-07-21 20:23 | PC.NURSE ---
pt medicated per NOV, pt continues to ring stating his pain has not stopped, advised of realistic time for medication to begin to work. Pt asked to stop yelling into hallway and use his call case. Pt given warm blanket and socks.
--- NOTE | 2025-07-21 20:27 | PC.NURSE ---
pt refused vitals at this time due to pain, vitals last done at 1814
--- NOTE | 2025-07-21 21:40 | PC.NURSE ---
pt unable to provide stool sample at this time.
[2025-07-21 22:04] LABS: Appearance Urine Clear; Glucose Urine UA Negative (Negative); PH >= 9.0 (5.0-9.0); Specific Gravity - Urine 1.020 (1.005-1.025)
[2025-07-21 22:06] LABS: OBS Int Ctl Valid YES
[2025-07-21 22:07] LABS: OBS1 POSITIVE (NEGATIVE)
[2025-07-21 22:10] VITALS: BP 162/83; PULSE 92; RESP 18; TEMP 36.8; O2SAT 96
--- NOTE | 2025-07-21 22:12 | PC.NURSE ---
pt mildly confused thought i was his sister, states eh took two green pills at home and fears he took too much, i asked him what pills he said he didnt know and then asked me to ask our brother , i advised my name and that we were in [facility] tis is when he asked if i was Floridalma and i advised I was not, he then apologized.
[2025-07-21 22:45] LABS: Cannabinoid Screen Urine Not Detected (Not Detect)
[2025-07-21 23:35] LABS: Alanine Aminotransferase 34 U/L (0-40); Albumin Level 4.2 g/dL (3.5-5.0); Alkaline Phosphatase 82 U/L (39-117); Anion Gap 13 (12-20); Aspartate Amino Transferase 63 U/L (5-37); Blood Urea Nitrogen 7 mg/dL (9-16); Calcium 8.9 mg/dL (8.4-10.2); Carbon Dioxide 22 mmol/L (22-29); Chloride 105 mmol/L (96-108); Creatinine Clr Calc Pharmacy 159.3; Estimated Glomerular Filt Rate > 60; Lipase 9 U/L (8-78); Potassium 4.2 mmol/L (3.3-5.1); Sodium 136 mmol/L (135-145); Total Protein 8.4 g/dL (6.5-8.0)
[2025-07-21 23:44] LABS: Troponin-I High Sensitivity < 2.7 ng/L (<3.5-35.0)
[2025-07-21] MEDS: iohexoL 350 MG/ML 100 ML INFUS..BTL 85 ML IV (23:44)
[2025-07-22] VITALS (7 sets, daily range): BP systolic 123–158; BP diastolic 72–98; PULSE 85–112; RESP 16–18; TEMP 37.2–37.4; O2SAT 97–100
--- NOTE | 2025-07-22 00:13 | PC.NURSE ---
pt returns from Cat scan, reports pain 10/10. provider aware,awaiting new orders.
--- NOTE | 2025-07-22 00:20 | PC.NURSE ---
pt medicated per NOV. pt asked if he could bring his couch in te room, oriented to place and advised we do not have any couches.
--- NOTE | 2025-07-22 02:28 | MHC.EDTECH ---
pt refusing labs at this time.
--- NOTE | 2025-07-22 02:41 | P.HPHOSP_ITS ---
History of Present Illness Date of Service: 07/22/25 Chief Complaint: Abdominal pain 25-year-old male with a past medical history of cholecystitis, HIV, depression, recent pyelonephritis; polysubstance abuse presented to the hospital today with a chief complaint of diffuse abdominal pain. Patient reports that over the past 3 days he has been having abdominal pain, nausea and vomiting. Denies any fevers. Denies any urinary complaints. Mentioned that during his admission for pyelonephritis recently he left AMA and interrupted the therapy. Patient denied any chest pain or palpitations. Patient also reports over the past 2 days he has been having bright red blood per rectum. Denies any lightheadedness or dizziness. Patient is a poor historian. Review of all other systems is negative except mentioned above ER course: Per ER team, patient has diffuse abdominal tenderness; seizure and pelvis shows findings concerning for proctocolitis. Also noted to have final sequelae of pyelonephritis. UA negative. [facility] Medical History HIV disease Methamphetamine abuse HIV (human immunodeficiency virus infection) Social History Household Members: Unknown / Unable to assess Household Members Other:: homeless for 1 month, staying with grandma Housing: Unknown / Unable to assess Do you presently have visiting nurse or other home services: No Alcohol intake: current Alcohol intake frequency: holidays/special occasions only Comment: 1:1 Patient Tobacco Use Status: Current someday Tobacco user Tobacco use type: Smokeless Tobacco Smoked in Last 30 Days: Yes Second Hand Smoke Exposure: No Use of substances other than those prescribed or required for medical reasons: No Substance Use Type: Amphetamines Advance Directives: No Advance Directives Information Provided: Yes Do you have a plan to hurt others: No Plan Nutrition Risks: No Nutritional Risk Meds Allergies Allergy/AdvReac Type Severity Reaction Status Date / Time No Known Allergies Allergy Verified 07/21/25 18:30 Active Medications: Current Medications Piperacillin Sod/Tazobactam (Sod 3.375 gm/ Sodium Chloride) 50 mls @ 100 mls/hr IV ONCE ONE Stop: 07/22/25 02:45 Metronidazole (Flagyl) 500 mg in 100 mls @ 100 mls/hr IV ONCE ONE Stop: 07/22/25 03:15 Home Medications ?Medication ?Instructions ?Recorded ?Confirmed ?Last Taken ?Type No Known Home Meds 06/09/25 06/09/25 Un known History Physical Exam 2 Vital Signs and Narrative: Vital Signs: Last Vital Signs Temp 98.2 F 07/21/25 22:10 Pulse 92 07/21/25 22:10 Resp 18 07/21/25 22:10 BP 162/83 H 07/21/25 22:10 Pulse Ox 96 07/21/25 22:10 O2 Del Method Room Air 07/21/25 22:10 BMI result Body Mass Index 22.1 Gen: Appears be in no acute distress HEENT: NCAT, Moist mucosa. Pulmonary: Vesicular breath sounds, fair air entry CVS: Normal S1-S2 Abdomen: BS+, Soft, mildly tender diffusely, no guarding no rigidity Extremities: Warm well perfused Neuro: Alert and awake. Results Labs 07/21/25 19:52 07/21/25 23:10 Labs: Laboratory Results - last 24 hr 07/21/25 07/21/25 07/21/25 19:52 21:48 23:08 MCV 74.6 L MCH 23.4 L MCHC 31.3 RDW 18.6 H Plt Count 441 H MPV 8.5 L Immature Gran % (Auto) 0.9 H Neut % (Auto) 76.4 H Lymph % (Auto) 15.1 L [place] % (Auto) 7.1 Eos % (Auto) 0.1 Baso % (Auto) 0.4 Lymph # (Auto) 2.1 [place] # (Auto) 1.0 Eos # (Auto) 0.0 Baso # (Auto) 0.1 Abs Immat Gran (auto) 0.12 H Absolute Neuts (auto) 10.7 H Absolute Nucleated RBC 0.000 Nucleated RBC % (auto) 0.0 Anion Gap Estim Creat Clear Calc Estimated GFR Random Glucose Calcium Total Bilirubin Cancelled Direct Bilirubin Cancelled AST Cancelled ALT Cancelled Alkaline Phosphatase Cancelled Troponin I High Sens < 2.7 Total Protein Cancelled Albumin Cancelled Lipase Cancelled Urine Color Yellow Urine Appearance Clear Urine pH >= 9.0 Ur Specific [place] 1.020 Urine Protein Trace Urine Glucose (UA) Negative Urine Ketones Negative Urine Blood Negative Urine Nitrite Negative Ur Leukocyte Esterase Negative Stool Occult Blood POSITIVE Urine Opiates Screen Not Detected Ur Buprenorphine Scrn Not Detected Ur Oxycodone Screen Not Detected Urine Methadone Screen Not Detected Urine Fentanyl Screen Not Detected Ur Barbiturates Screen Not Detected Ur Phencyclidine Scrn Not Detected Ur Amphetamines Screen POSITIVE H U Benzodiazepines Scrn Not Detected Urine Cocaine Screen Not Detected U Marijuana (THC) Screen Not Detected 07/21/25 23:10 MCV MCH MCHC RDW Plt Count MPV Immature Gran % (Auto) Neut % (Auto) Lymph % (Auto) [place] % (Auto) Eos % (Auto) Baso % (Auto) Lymph # (Auto) [place] # (Auto) Eos # (Auto) Baso # (Auto) Abs Immat Gran (auto) Absolute Neuts (auto) Absolute Nucleated RBC Nucleated RBC % (auto) Anion Gap 13 Estim Creat Clear Calc 159.3 Estimated GFR > 60 Random Glucose 107 Calcium 8.9 Total Bilirubin 0.2 Direct Bilirubin < 0.2 AST 63 H ALT 34 Alkaline Phosphatase 82 Troponin I High Sens Total Protein 8.4 H Albumin 4.2 Lipase 9 Urine Color Urine Appearance Urine pH Ur Specific [place] Urine Protein Urine Glucose (UA) Urine Ketones Urine Blood Urine Nitrite Ur Leukocyte Esterase Stool Occult Blood Urine Opiates Screen Ur Buprenorphine Scrn Ur Oxycodone Screen Urine Methadone Screen Urine Fentanyl Screen Ur Barbiturates Screen Ur Phencyclidine Scrn Ur Amphetamines Screen U Benzodiazepines Scrn Urine Cocaine Screen U Marijuana (THC) Screen Assessment and Plan (1) Proctocolitis: Status: Acute Plan 25-year-old male with a past medical history of cholecystitis, HIV, depression, recent pyelonephritis; polysubstance abuse presented to the hospital today with a chief complaint of diffuse abdominal pain. Noted to have proctocolitis. Proctocolitis: Continue ceftriaxone and Flagyl Pain control General surgery consult BRBPR: H&H stable. GI consult NPO Recent pyelonephritis: Patient left AMA interrupting therapy. CT abdomen pelvis showed sequela of pyelonephritis UA negative HIV: Patient not currently taking any medications. ID consult. Mood disorder: Continue home medications once confirmed by the pharmacy in a.m.. DVT prophylaxis: SCD boots Code status: Full code Quality Stroke Does the patient have a stroke diagnosis?: No VTE Prior VTE?: No VTE Risk Level:: Medical - moderate - high VTE Device Contraindication: Treatment Not Indicated VTE Drug Contraindication: N/A - Med Ordered
--- NOTE | 2025-07-22 02:45 | PC.NURSE ---
pt refused blood draw for blood cultures and lactic. Provider advised as pt has antibiotics to be administered. Awaiting new orders.
[2025-07-22] MEDS: Dextrose 5 % and 0.45 % NaCl 1,000 ML 100 ML IVCONT ×3 (03:35→22:27)
--- NOTE | 2025-07-22 04:02 | PC.NURSE ---
pt adamantly refuses blood draw for cultures and lactic. Dr. Cruz okay with administering antibiotics without the lab draw.
[2025-07-22] MEDS: metroNIDAZOLE/NS 500 MG/100 ML PIGGYBACK 100 MG IV ×3 (04:04→19:15)
--- NOTE | 2025-07-22 04:10 | PC.NURSE ---
pt medicated per MAR.
--- NOTE | 2025-07-22 04:26 | PC.NURSE ---
verbal report given to Sagar in overflow.
--- NOTE | 2025-07-22 07:15 | PM.GICN ---
History of Present Illness Data of Consult Service Date: 07/22/25 Requesting physician: Mikey Kyle Primary Care Provider: Real Hightower MD [facility] Reason for consult: Red blood per rectum 25-year-old male with history of cholecystitis, HIV, depression, recent pyelonephritis; polysubstance abuse seen at [facility] on 07/22/25 with a chief complaint of diffuse abdominal pain. Pt was recently diagnosed with pyelonephritis and he did not complete treatment for pyelonephritis and left AMA druing a previous hospital admission. Patient stated that his belly pain is diffusely. He does feel distended. He stated that it is inflammation in his abdomen. He normally gets inflammation in his abdomen. This feels exactly the same way. Patient is a extremely difficult historian. He appears to be hyperactive on exam. The patient stated that he refuses any lab until he gets pain medicine. 07/22/[address] SCAN SHOWED: 1. Wall thickening of the distal sigmoid colon and rectum suggesting proctocolitis. This is presumably the etiology of the patient's rectal bleeding. No discrete mass or active contrast extravasation identified. 2. No findings of bowel obstruction. 3. Persistent abnormal enhancement of the right kidney suggesting persistent pyelonephritis or sequelae of right-sided pyelonephritis. Correlation with clinical symptoms suggested. Review of Systems Review of Systems: Yes all other systems are reviewed and are negative Neurologic: Reports confusion Psychiatric: Psychiatric: Reports confusion PMF Past Medical History Medical History HIV disease Methamphetamine abuse HIV (human immunodeficiency virus infection) Social History Social History Household Members: None Household Members Other:: homeless for 1 month, staying with grandma Housing: Homeless Do you presently have visiting nurse or other home services: No Alcohol intake: current Alcohol intake frequency: holidays/special occasions only Comment: 1:1 Patient Tobacco Use Status: Current everyday Tobacco user Tobacco use type: Smokeless Tobacco Second Hand Smoke Exposure: No Substance Use Type: Amphetamines service: No Meds Allergies Allergy/AdvReac Type Severity Reaction Status Date / Time No Known Allergies Allergy Verified 07/21/25 18:30 Active Medications: Current Medications Acetaminophen (Acetaminophen 325 Mg Tablet) 650 mg PO Q6H PRN PRN Reason: Pain, Mild 1-3,fever,headache Calcium Carbonate (Calcium Carbonate 750 Mg Tab.Chew) 750 mg PO Q4H PRN PRN Reason: Heartburn Heparin Sodium (Porcine) (Heparin Sodium,Porcine 5,000 Unit/Ml Vial) 5,000 unit SUBCUT Q8H [facility] Last Admin: 07/22/25 06:39 Dose: Not Given Hydromorphone HCl (Hydromorphone Hcl 1 Mg/Ml Syringe) 0.5 mg IVPUSH Q4H PRN; Protocol PRN Reason: Pain, Severe (Pain Scale 7-10) Dextrose/Sodium Chloride (D51/2ns) 1,000 mls @ 100 mls/hr IVCONT .Q10H [facility] Last Admin: 07/22/25 03:35 Dose: 100 mls/hr Ceftriaxone Sodium 1 gm/ (Sodium Chloride) 50 mls @ 100 mls/hr IV Q24H [facility] Last Infusion: 07/22/25 06:15 Dose: Infused Metronidazole (Flagyl) 500 mg in 100 mls @ 100 mls/hr IV Q8H [facility] Dextrose/Sodium Chloride (D51/2ns) 1,000 mls @ 100 mls/hr IVCONT .Q10H [facility] Last Admin: 07/22/25 05:38 Dose: Not Given Magnesium Hydroxide (Milk Of Magnesia 30 Ml Oral.Susp) 30 ml PO DAILY PRN PRN Reason: Constipation Melatonin (Melatonin 3 Mg Tablet) 6 mg PO BEDTIME PRN PRN Reason: Insomnia Sodium Chloride (0.9 % Sodium Chloride Flush 3 Ml Syringe) 3 ml IVFLUSH QSHIFT [facility] Home Medications ?Medication ?Instructions ?Recorded ?Confirmed ?Last Taken ?Type divalproex 500 mg tablet,delayed 1,000 mg PO BID 07/22/25 07/22/25 Unknown History release Physical Exam Vital Signs: Vital Signs: Last Vital Signs Temp 99.1 F 07/22/25 04:56 Pulse 85 07/22/25 04:56 Resp 18 07/22/25 04:56 BP 123/72 07/22/25 04:56 Pulse Ox 99 07/22/25 04:56 O2 Del Method Room Air 07/22/25 04:56 BMI result Body Mass Index 22.1 Const: General: no acute distress, anxious, confusion and other (Appears uncomfortable due to pain) Nutritional Appearance: average body habitus Orientation/consciousness: confusion Limitations: no limitations HEENT: Head: Yes normal to inspection Ears: hearing grossly normal bilaterally Mouth: Normal oral and palatal mucosa present Eyes: Sclerae: sclerae normal Pupils: Equal, round and reactive pupils present Neck: Neck: Yes normal visual inspection Chest: Chest palpation & inspection: normal inspection of the chest Resp: Effort & Inspection: normal respiratory effort Auscultation: clear to auscultation bilaterally Cardio: Palpation: normal PMI Rate: regular rate Rhythm: regular rhythm Heart sounds: S1 normal heart sound present, S2 normal heart sound present and no murmurs GI: Palpation (GI): Soft to palpation, Tenderness to palpation present (GI) (moderate diffuse generalized tenderness) and No hepatosplenomegaly present Auscultation: normal bowel sounds Rectal Exam - Male: Yes deferred Skin: General skin exam: no rashes or lesions noted Neuro: General: gait normal, moves all extremities and confusion Cranial nerves: Yes Equal, round and reactive pupils present Psych: Appearance: grossly normal Mental Status: mental status grossly normal Results Labs 07/23/25 05:52 07/23/25 05:52 Labs: Short CBC 07/21/25 Range/Units 19:52 WBC 13.9 H (4.8-10.8) X10*3/uL Hgb 14.1 (14.0-18.0) g/dl Hct 45.0 (42.0-52.0) % Plt Count 441 H (160-400) X10*3/uL BMP 07/21/25 23:10 Sodium 136 Potassium 4.2 D Chloride 105 Carbon Dioxide 22 BUN 7 L Creatinine 0.67 Calcium 8.9 Liver Function 07/21/25 07/21/25 Range/Units 19:52 23:10 Total Bilirubin Cancelled 0.2 Direct Bilirubin Cancelled < 0.2 AST Cancelled 63 H ALT Cancelled 34 Alkaline Phosphatase Cancelled 82 Albumin Cancelled 4.2 Urine 07/21/25 Range/Units 21:48 Urine Color Yellow Urine Appearance Clear Urine pH >= 9.0 (5.0-9.0) Ur Specific [place] 1.020 (1.005-1.025) Urine Protein Trace (Neg-Trace) mg/dL Urine Glucose (UA) Negative (Negative) mg/dL Assessment and Plan (1) Nausea & vomiting: Qualifiers: Vomiting type: unspecified Qualified Code(s): R11.2 - Nausea with vomiting, unspecified Status: Acute (2) Proctocolitis: Status: Acute (3) BRBPR (bright red blood per rectum): Status: Acute (4) Abdominal pain: Qualifiers: Abdominal location: generalized Qualified Code(s): R10.84 - Generalized abdominal pain Status: Acute Plan 25-year-old male with history of cholecystitis, HIV, depression, recent pyelonephritis; polysubstance abuse seen at [facility] on 07/22/25 with a chief complaint of diffuse abdominal pain and rectal bleeding. RECOMMENDATIONS: 1. Agree with IV pain medicine and antibiotics 2. Patient is scheduled for a flexible sigmoidoscopy on 07/23/25 for further evaluation of rectal bleeding Procedures Date of Service Date of Service: 07/23/25
[2025-07-22] MEDS: 0.9 % Sodium Chloride Flush 3 ML SYRINGE IVFLUSH (07:51)
--- NOTE | 2025-07-22 08:35 | PHA.MEDREC ---
Addendum entered by Penny Pal [facility] 07/22/25 08:44: Reviewed by pharmacist Original Note: Pharmacy Consult ? Medication Reconciliation Pharmacy has completed the medication reconciliation. Spoke with pt this morning and he was a bit upset and did not want to talk to me until he had something to drink and laid back down. Went down a bit later and spoke with provider before they went into pt room to see if they can get if pt taking anything and provider was able to obtain that pt not taking anything right now and per pt it is not my fault I am not taking anything right now .
--- NOTE | 2025-07-22 08:52 | PHA.MEDREC ---
Pharmacy Consult ? Medication Reconciliation Pharmacy has completed the medication reconciliation.Patient stating he is not taking any medications. Called and spoke to patient's sister who knows he is supposed to be talking a seizure medication and an HIV medication. There was pharmacy history of depakote as recently as jun 2025. I added to his list but likely he is refusing to take anything.
--- NOTE | 2025-07-22 09:04 | MHC.EDTECH ---
pt refusing labs!
[2025-07-22 09:28] LABS: MANUAL DIFF FLAG NO
[2025-07-22 09:31] LABS: Hematocrit 37.8 % (42.0-52.0); Hemoglobin 11.8 g/dl (14.0-18.0); Imm Gran Abs Auto 0.07 X10*3/uL (0.00-0.03); Imm Gran Pct Auto 0.5 % (0.0-0.4); Lymphocytes Absolute Auto 2.2 X10*3/uL (1.2-4.9); Mean Corpuscular HGB Conc 31.2 g/dl (31.0-36.0); Mean Corpuscular Hemoglobin 23.3 pg (27.0-33.0); Mean Corpuscular Volume 74.6 fL (80.0-98.0); NRBC Abs Auto 0.000 X10*3/uL (0.0-0.012); NRBC Pct Auto 0.0 /100WBC (0.0-0.2); Platelet Count 432 X10*3/uL (160-400); Red Blood Count 5.07 X10*6/uL (4.60-5.80); White Blood Count 12.8 X10*3/uL (4.8-10.8)
[2025-07-22 09:46] LABS: Anion Gap 12 (12-20); Blood Urea Nitrogen 6 mg/dL (9-16); Calcium 8.4 mg/dL (8.4-10.2); Carbon Dioxide 26 mmol/L (22-29); Chloride 102 mmol/L (96-108); Creatinine Clr Calc Pharmacy 159.3; Estimated Glomerular Filt Rate > 60; Potassium 4.0 mmol/L (3.3-5.1); Sodium 136 mmol/L (135-145)
--- NOTE | 2025-07-22 10:14 | PC.NURSE ---
pt medicated for pain per PRN
--- NOTE | 2025-07-22 10:32 | PC.NURSE ---
Assume [facility] Approx @ 0715 ?Alert & Oriented. Vague. Refusing labs. Education provided. RA? expiratory Wheezing. Voiding in the urinal. ?? 06/25 pain after having somethin to drink. 20G R.AC
--- NOTE | 2025-07-22 11:31 | HO.NURTONUR ---
Alert & Oriented. Vague. Refusing labs. Education provided. RA? expiratory Wheezing. Voiding in the urinal. ?c/ o 06/25 pain after having something to drink. Pain med given per NOV. 20G R.AC
--- NOTE | 2025-07-22 11:35 | P.PNIM_ITS ---
Subjective Subjective Date of Service: 07/22/25 Interval History: brbpr Physical Exam 2 Exam: Exam: General: AO X 3, no acute distress Resp: CTA bilateral, no accessory muscles used CVS: S1,S2,RRR GI: soft, non tender, non distended Neuro: motor grossly intact, alert Vital Signs: Vital Signs: Last Vital Signs Temp 99.1 F 07/22/25 04:56 Pulse 85 07/22/25 04:56 Resp 16 07/22/25 10:10 BP 123/72 07/22/25 04:56 Pulse Ox 99 07/22/25 04:56 O2 Del Method Room Air 07/22/25 04:56 BMI result Body Mass Index 22.1 Objective Data Active Medications Acetaminophen (Acetaminophen 325 Mg Tablet) 650 mg PO Q6H PRN PRN Reason: Pain, Mild 1-3,fever,headache Calcium Carbonate (Calcium Carbonate 750 Mg Tab.Chew) 750 mg PO Q4H PRN PRN Reason: Heartburn Divalproex Sodium (Divalproex Sodium 500 Mg Tablet.) 1,000 mg PO BID ON LICENSE OF [facility] Heparin Sodium (Porcine) (Heparin Sodium,Porcine 5,000 Unit/Ml Vial) 5,000 unit SUBCUT Q8H ON LICENSE OF [facility] Last Admin: 07/22/25 06:39 Dose: Not Given Documented By: DEUCE Non-Admin Reason: Patient Refused Hydromorphone HCl (Hydromorphone Hcl 1 Mg/Ml Syringe) 0.5 mg IVPUSH Q4H PRN; Protocol PRN Reason: Pain, Severe (Pain Scale 7-10) Last Admin: 07/22/25 10:10 Dose: 0.5 mg Documented By: AKILA Dextrose/Sodium Chloride (D51/2ns) 1,000 mls @ 100 mls/hr IVCONT .Q10H ON LICENSE OF [facility] Last Admin: 07/22/25 03:35 Dose: 100 mls/hr Documented By: GUNJAN Ceftriaxone Sodium 1 gm/ (Sodium Chloride) 50 mls @ 100 mls/hr IV Q24H ON LICENSE OF [facility] Last Infusion: 07/22/25 06:15 Dose: Infused Documented By: DEUCE Metronidazole (Flagyl) 500 mg in 100 mls @ 100 mls/hr IV Q8H ON LICENSE OF [facility] Dextrose/Sodium Chloride (D51/2ns) 1,000 mls @ 100 mls/hr IVCONT .Q10H ON LICENSE OF [facility] Last Admin: 07/22/25 05:38 Dose: Not Given Documented By: DEUCE Non-Admin Reason: Duplicate Order Magnesium Hydroxide (Milk Of Magnesia 30 Ml Oral.Susp) 30 ml PO DAILY PRN PRN Reason: Constipation Melatonin (Melatonin 3 Mg Tablet) 6 mg PO BEDTIME PRN PRN Reason: Insomnia Sodium Chloride (0.9 % Sodium Chloride Flush 3 Ml Syringe) 3 ml IVFLUSH QSHIFT ON LICENSE OF [facility] Last Admin: 07/22/25 07:51 Dose: 3 ml Documented By: BELKIS Labs 07/22/25 09:18 07/22/25 09:18 Labs: Laboratory Results - last 24 hr 07/21/25 07/21/25 07/21/25 19:52 21:48 23:08 MCV 74.6 L MCH 23.4 L MCHC 31.3 RDW 18.6 H Plt Count 441 H MPV 8.5 L Immature Gran % (Auto) 0.9 H Neut % (Auto) 76.4 H Lymph % (Auto) 15.1 L [place] % (Auto) 7.1 Eos % (Auto) 0.1 Baso % (Auto) 0.4 Lymph # (Auto) 2.1 [place] # (Auto) 1.0 Eos # (Auto) 0.0 Baso # (Auto) 0.1 Abs Immat Gran (auto) 0.12 H Absolute Neuts (auto) 10.7 H Absolute Nucleated RBC 0.000 Nucleated RBC % (auto) 0.0 Anion Gap Estim Creat Clear Calc Estimated GFR Random Glucose Lactic Acid Calcium Total Bilirubin Cancelled Direct Bilirubin Cancelled AST Cancelled ALT Cancelled Alkaline Phosphatase Cancelled Troponin I High Sens < 2.7 Total Protein Cancelled Albumin Cancelled Lipase Cancelled Urine Color Yellow Urine Appearance Clear Urine pH >= 9.0 Ur Specific [place] 1.020 Urine Protein Trace Urine Glucose (UA) Negative Urine Ketones Negative Urine Blood Negative Urine Nitrite Negative Ur Leukocyte Esterase Negative Stool Occult Blood POSITIVE Urine Opiates Screen Not Detected Ur Buprenorphine Scrn Not Detected Ur Oxycodone Screen Not Detected Urine Methadone Screen Not Detected Urine Fentanyl Screen Not Detected Ur Barbiturates Screen Not Detected Ur Phencyclidine Scrn Not Detected Ur Amphetamines Screen POSITIVE H U Benzodiazepines Scrn Not Detected Urine Cocaine Screen Not Detected U Marijuana (THC) Screen Not Detected 07/21/25 07/22/25 23:10 09:18 MCV 74.6 L MCH 23.3 L MCHC 31.2 RDW 17.5 H Plt Count 432 H MPV 8.5 L Immature Gran % (Auto) 0.5 H Neut % (Auto) 71.6 Lymph % (Auto) 17.3 L [place] % (Auto) 10.2 Eos % (Auto) 0.2 Baso % (Auto) 0.2 Lymph # (Auto) 2.2 [place] # (Auto) 1.3 H Eos # (Auto) 0.0 Baso # (Auto) 0.0 Abs Immat Gran (auto) 0.07 H Absolute Neuts (auto) 9.2 H Absolute Nucleated RBC 0.000 Nucleated RBC % (auto) 0.0 Anion Gap 13 12 Estim Creat Clear Calc 159.3 159.3 Estimated GFR > 60 > 60 Random Glucose 107 101 Lactic Acid 1.8 Calcium 8.9 8.4 Total Bilirubin 0.2 Direct Bilirubin < 0.2 AST 63 H ALT 34 Alkaline Phosphatase 82 Troponin I High Sens Total Protein 8.4 H Albumin 4.2 Lipase 9 Urine Color Urine Appearance Urine pH Ur Specific [place] Urine Protein Urine Glucose (UA) Urine Ketones Urine Blood Urine Nitrite Ur Leukocyte Esterase Stool Occult Blood Urine Opiates Screen Ur Buprenorphine Scrn Ur Oxycodone Screen Urine Methadone Screen Urine Fentanyl Screen Ur Barbiturates Screen Ur Phencyclidine Scrn Ur Amphetamines Screen U Benzodiazepines Scrn Urine Cocaine Screen U Marijuana (THC) Screen Assessment and Plan (1) Noncompliance with medication regimen: Status: Acute Plan 25M HIV, mood disorder, polysubstance dependence, epilepsy, non complaince, presented with abd pain and brbpr brbpr colitis rocephin, flagyl gi eval monitor cbc hiv restart haart, id eval polysubstance dependence abstinance recommended epilepsy depakote dvt porphylaxis - mechanical due to brbpr full code reason for continued hospitalization:working up bleed Quality Stroke Does the patient have a stroke diagnosis?: No VTE Prior VTE?: No VTE Risk Level:: Medical - moderate - high VTE Device Contraindication: Treatment Not Indicated VTE Drug Contraindication: N/A - Med Ordered
--- NOTE | 2025-07-22 12:18 | P.CONGS_ITS ---
History of Present Illness Consult details Consult date: 07/22/25 <Milton Quan PA-C - Last Filed: 07/22/25 14:31> Narrative: 25 year old male with a history of HIV, mood disorder, polysubstance dependence, epilepsy, non compliance, presented with 3 day history abd pain and brbpr, admitted for proctocolitis. Patient is a poor historian. He reports Today feeling somewhat improved, pain now 6/10 from 06/25. Describes this as throughout the abdomen rather than one specific place. he denies nausea, vomiting. He states he has not passed stool today, minimal gas. However, states that he has not had blood in his stool in 2 days. He denies fevers. There is no known surgical history. CT of the abdomen showing wall thickening of the the distal sigmoid colon and rectum, moderate/high stool burden. Findings suggestive of proctocolitis, suspecting this is the source of his BRBPR. He has been started on ceftriaxone and flagyl. <Milton Quan PA-C - Last Filed: 07/22/25 14:31> Review of Systems 2 Review of Systems: Yes all other systems are reviewed and are negative < Milton Quan PA-C - Last Filed: 07/22/25 14:31> [facility] Past Medical History Medical History: Medical History HIV disease Methamphetamine abuse HIV (human immunodeficiency virus infection) <Milton Quan PA-C - Last Filed: 07/22/25 14:31> Social History Social History: Social History Household Members: None Household Members Other:: homeless for 1 month, staying with [facility] Housing: Homeless Do you presently have visiting nurse or other home services: No Alcohol intake: current Alcohol intake frequency: holidays/special occasions only Comment: 1:1 Patient Tobacco Use Status: Current everyday Tobacco user Tobacco use type: Smokeless Tobacco Second Hand Smoke Exposure: No Substance Use Type: Amphetamines service: No <LESLIE Conte Last Filed: 07/22/25 14:31> Meds Allergies/Adverse reactions: Allergies Allergy/AdvReac Type Severity Reaction Status Date / Time No Known Allergies Allergy Verified 07/21/25 18:30 <Milton Quan PA-C - Last Filed: 07/22/25 14:31> Active Medications: Current Medications Acetaminophen (Acetaminophen 325 Mg Tablet) 650 mg PO Q6H PRN PRN Reason: Pain, Mild 1-3,fever,headache Bictegravir/Emtricitabine/Tenofovir (Bictegrav/Emtricit/Tenofov Ala Tablet) 1 tab PO DAILY [facility] Calcium Carbonate (Calcium Carbonate 750 Mg Tab.Chew) 750 mg PO Q4H PRN PRN Reason: Heartburn Divalproex Sodium (Divalproex Sodium 500 Mg Tablet.Dr) 1,000 mg PO BID [facility] Heparin Sodium (Porcine) (Heparin Sodium,Porcine 5,000 Unit/Ml Vial) 5,000 unit SUBCUT Q8H [facility] Last Admin: 07/22/25 06:39 Dose: Not Given Hydromorphone HCl (Hydromorphone Hcl 1 Mg/Ml Syringe) 0.5 mg IVPUSH Q4H PRN; Protocol PRN Reason: Pain, Severe (Pain Scale 7-10) Last Admin: 07/22/25 10:10 Dose: 0.5 mg Dextrose/Sodium Chloride (D51/2ns) 1,000 mls @ 100 mls/hr IVCONT .Q10H [facility] Last Admin: 07/22/25 03:35 Dose: 100 mls/hr Ceftriaxone Sodium 1 gm/ (Sodium Chloride) 50 mls @ 100 mls/hr IV Q24H [facility] Last Infusion: 07/22/25 06:15 Dose: Infused Metronidazole (Flagyl) 500 mg in 100 mls @ 100 mls/hr IV Q8H [facility] Dextrose/Sodium Chloride (D51/2ns) 1,000 mls @ 100 mls/hr IVCONT .Q10H [facility] Last Admin: 07/22/25 05:38 Dose: Not Given Magnesium Hydroxide (Milk Of Magnesia 30 Ml Oral.Susp) 30 ml PO DAILY PRN PRN Reason: Constipation Melatonin (Melatonin 3 Mg Tablet) 6 mg PO BEDTIME PRN PRN Reason: Insomnia Sodium Chloride (0.9 % Sodium Chloride Flush 3 Ml Syringe) 3 ml IVFLUSH QSHIFT [facility] Last Admin: 07/22/25 07:51 Dose: 3 ml <Milton Quan PA-C - Last Filed: 07/22/25 14:31> Home medications: Home Medications ?Medication ?Instructions ?Recorded ?Confirmed ?Last Taken ?Type divalproex 500 mg tablet,delayed 1,000 mg PO BID 07/2207/22/25 Unknown History release <LESLIE Conte Last Filed: 07/22/25 14:31> Physical Exam 2 Vital Signs: Vital Signs: Last Vital Signs Temp 99.1 F 07/22/25 04:56 Pulse 85 07/22/25 04:56 Resp 16 07/22/25 10:10 BP 123/72 07/22/25 04:56 Pulse Ox 99 07/22/25 04:56 O2 Del Method Room Air 07/22/25 04:56 BMI result Body Mass Index 22.1 <LESLIE Conte Last Filed: 07/22/25 14:31> Const: General: comfortable and no acute distress <LESLIE Conte Last Filed: 07/22/25 14:31> Orientation/consciousness: patient oriented x3 <LESLIE Conte Last Filed: 07/22/25 14:31> Resp: Effort & Inspection: normal respiratory effort and able to speak in complete sentences <LESLIE Conte Last Filed: 07/22/25 14:31> GI: Inspection: No distended <LESLIE Conte Last Filed: 07/22/25 14:31> Palpation (GI): Soft to palpation, Tenderness to palpation present (GI) (throughout) and Guarding due to palpation present (GI) (voluntary) <LESLIE Conte Last Filed: 07/22/25 14:31> Auscultation: normal bowel sounds <LESLIE Conte Last Filed: 07/22/25 14:31> Neuro: General: patient oriented x3 <LESLIE Conte Last Filed: 07/22/25 14:31> Results Labs Result diagrams: 07/23/25 05:52 07/23/25 05:52 <LESLIE Conte Last Filed: 07/22/25 14:31> Labs: Abnormal lab results 07/21/25 07/21/25 07/21/25 Range/Units 19:52 21:48 23:10 WBC 13.9 H (4.8-10.8) X10*3/uL RBC 6.03 H (4.60-5.80) X10*6/uL Hgb (14.0-18.0) g/dl Hct (42.0-52.0) % MCV 74.6 L (80.0-98.0) fL MCH 23.4 L (27.0-33.0) pg RDW 18.6 H (11.0-16.0) % Plt Count 441 H (160-400) X10*3/uL MPV 8.5 L (9.4-12.4) fL Immature Gran % (Auto) 0.9 H (0.0-0.4) % Neut % (Auto) 76.4 H (45-73) % Lymph % (Auto) 15.1 L (20-40) % [place] # (Auto) (0.1-1.2) X10*3/uL Abs Immat Gran (auto) 0.12 H (0.00-0.03) X10*3/uL Absolute Neuts (auto) 10.7 H (2.0-8.3) x10*3/uL BUN 7 L (9-16) mg/dL AST 63 H (5-37) U/L Total Protein 8.4 H (6.5-8.0) g/dL Ur Amphetamines Screen POSITIVE H (Not Detect) 07/22/25 Range/Units 09:18 WBC 12.8 H (4.8-10.8) X10*3/uL RBC (4.60-5.80) X10*6/uL Hgb 11.8 L (14.0-18.0) g/dl Hct 37.8 L (42.0-52.0) % MCV 74.6 L (80.0-98.0) fL MCH 23.3 L (27.0-33.0) pg RDW 17.5 H (11.0-16.0) % Plt Count 432 H (160-400) X10*3/uL MPV 8.5 L (9.4-12.4) fL Immature Gran % (Auto) 0.5 H (0.0-0.4) % Neut % (Auto) (45-73) % Lymph % (Auto) 17.3 L (20-40) % [place] # (Auto) 1.3 H (0.1-1.2) X10*3/uL Abs Immat Gran (auto) 0.07 H (0.00-0.03) X10*3/uL Absolute Neuts (auto) 9.2 H (2.0-8.3) x10*3/uL BUN 6 L (9-16) mg/dL AST (5-37) U/L Total Protein (6.5-8.0) g/dL Ur Amphetamines Screen (Not Detect) Short CBC 07/21/25 07/22/25 Range/Units 19:52 09:18 WBC 13.9 H 12.8 H (4.8-10.8) X10*3/uL Hgb 14.1 11.8 L (14.0-18.0) g/dl Hct 45.0 37.8 L (42.0-52.0) % Plt Count 441 H 432 H (160-400) X10*3/uL BMP 07/21/25 07/22/25 23:10 09:18 Sodium 136 136 Potassium 4.2 D 4.0 Chloride 105 102 Carbon Dioxide 22 26 BUN 7 L 6 L Creatinine 0.67 0.67 Calcium 8.9 8.4 Liver Function 07/21/25 07/21/25 Range/Units 19:52 23:10 Total Bilirubin Cancelled 0.2 Direct Bilirubin Cancelled < 0.2 AST Cancelled 63 H ALT Cancelled 34 Alkaline Phosphatase Cancelled 82 Albumin Cancelled 4.2 Urine 07/21/25 Range/Units 21:48 Urine Color Yellow Urine Appearance Clear Urine pH >= 9.0 (5.0-9.0) Ur Specific [place] 1.020 (1.005-1.025) Urine Protein Trace (Neg-Trace) mg/dL Urine Glucose (UA) Negative (Negative) mg/dL All other labs normal. <Milton Quan PA-C - Last Filed: 07/22/25 14:31> Assessment and Plan (1) Proctocolitis: Status: Acute <Milton Quan PA-C - Last Filed: 07/22/25 14:31> The patient is a poor historian Apparently had seen small amounts of blood per rectum 2 days ago Has describes abdominal pain diffusely I have reviewed his CAT scan - this has question of some thickening of the rectum in the distal sigmoid No other significant findings on CAT scan He said he has not passed any blood anymore I would recommend GI follow up Hemoglobin stable and is around baseline We will follow while he is in the hospital I have seen and examined the patient independently <Klaus Hu MD - Last Filed: 07/23/25 16:45> 25 year old male with a history of HIV, mood disorder, polysubstance dependence, epilepsy, non compliance, presented with 3 day history abd pain and brbpr, admitted for proctocolitis. intitially presented with leukocytosis, CT scan showing thickeing of the distal sigmoid colon and rectum, likely the source of the patients rectal bleeding. additionally there was a moderate to high stool burden. Patient today stating pain improving, remains 6/10, denying nausea, vomiting. Denies passing gas or stool. States he has not had bloody stool for 2 days. Leukocytosis is improving today. On exam his abdomen is soft, tender throughout even to light palpation with voluntary guarding. He had good bowel sounds. At this point I believe there is indication for surgical intervention at this time. We will defer to GI for further management. Would recommend stool softener for his high stool burden. Continue IV antibiotics Serial abdominal exams Recommend stool softener We will continue to follow along for GI recommendations. <Milton Quan PA-C - Last Filed: 07/22/25 14:31> Procedures Date of Service Date of Service: 07/22/25 <Milton Quan PA-C - Last Filed: 07/22/25 14:31> 07/23/25 <Klaus Hu MD - Last Filed: 07/23/25 16:45>
--- NOTE | 2025-07-22 12:50 | HO.ANESPROP2 ---
Documented by User: Huong Messer NP 07/22/25 12:53 HPI - Anesthesia Eval Consult details Narrative: 25 yr old male for sigmoidoscopy flexible Methamphetamine abuse: + on tox screen 07/21/25 HIV: no meds documented PMFSH Active Problems Active Problems: All Active Problems Proctocolitis (Acute) BRBPR (bright red blood per rectum) (Acute) Colitis (Acute) Abdominal pain (Acute) Nausea & vomiting (Acute) Cystitis (Acute) Acute pyelonephritis (Acute) Conversion disorder with abnormal movement (Acute) Seizure (Acute) Sepsis (Acute) Acute metabolic encephalopathy (Acute) Polysubstance use disorder (Acute) Noncompliance with medication regimen (Acute) Cellulitis of perineum (Acute) Past Medical History Medical History HIV disease Methamphetamine abuse HIV (human immunodeficiency virus infection) Social History Social History Household Members: None Household Members Other:: homeless for 1 month, staying with [facility] Housing: Homeless Do you presently have visiting nurse or other home services: No Alcohol intake: current Alcohol intake frequency: holidays/special occasions only Comment: 1:1 Patient Tobacco Use Status: Current everyday Tobacco user Tobacco use type: Smokeless Tobacco Second Hand Smoke Exposure: No Substance Use Type: Amphetamines service: No Meds Allergies Allergy/AdvReac Type Severity Reaction Status Date / Time No Known Allergies Allergy Verified 07/21/25 18:30 Active Medications: Current Medications Acetaminophen (Acetaminophen 325 Mg Tablet) 650 mg PO Q6H PRN PRN Reason: Pain, Mild 1-3,fever,headache Bictegravir/Emtricitabine/Tenofovir (Bictegrav/Emtricit/Tenofov Ala Tablet) 1 tab PO DAILY [facility] Calcium Carbonate (Calcium Carbonate 750 Mg Tab.Chew) 750 mg PO Q4H PRN PRN Reason: Heartburn Divalproex Sodium (Divalproex Sodium 500 Mg Tablet.Dr) 1,000 mg PO BID [facility] Heparin Sodium (Porcine) (Heparin Sodium,Porcine 5,000 Unit/Ml Vial) 5,000 unit SUBCUT Q8H [facility] Last Admin: 07/22/25 06:39 Dose: Not Given Hydromorphone HCl (Hydromorphone Hcl 1 Mg/Ml Syringe) 0.5 mg IVPUSH Q4H PRN; Protocol PRN Reason: Pain, Severe (Pain Scale 7-10) Last Admin: 07/22/25 10:10 Dose: 0.5 mg Dextrose/Sodium Chloride (D51/2ns) 1,000 mls @ 100 mls/hr IVCONT .Q10H [facility] Last Admin: 07/22/25 03:35 Dose: 100 mls/hr Ceftriaxone Sodium 1 gm/ (Sodium Chloride) 50 mls @ 100 mls/hr IV Q24H [facility] Last Infusion: 07/22/25 06:15 Dose: Infused Metronidazole (Flagyl) 500 mg in 100 mls @ 100 mls/hr IV Q8H [facility] Dextrose/Sodium Chloride (D51/2ns) 1,000 mls @ 100 mls/hr IVCONT .Q10H [facility] Last Admin: 07/22/25 05:38 Dose: Not Given Magnesium Hydroxide (Milk Of Magnesia 30 Ml Oral.Susp) 30 ml PO DAILY PRN PRN Reason: Constipation Melatonin (Melatonin 3 Mg Tablet) 6 mg PO BEDTIME PRN PRN Reason: Insomnia Sodium Chloride (0.9 % Sodium Chloride Flush 3 Ml Syringe) 3 ml IVFLUSH QSHIFT [facility] Last Admin: 07/22/25 07:51 Dose: 3 ml Home Medications ?Medication ?Instructions ?Recorded ?Confirmed ?Last Taken ?Type divalproex 500 mg tablet,delayed 1,000 mg PO BID 07/22/25 07/22/25 Unknown History release Exam Height,Weight and Vital Signs: Height 5 ft 9 in Weight 68.039 kg Last Vital Signs Temp 99.1 F 07/22/25 12:38 Pulse 101 H 07/22/25 12:38 Resp 18 07/22/25 12:38 BP 138/80 07/22/25 12:38 Pulse Ox 99 07/22/25 12:38 O2 Del Method Room Air 07/22/25 12:38 Pertinent Lab Results Pertinent Lab Results: Laboratory Tests 07/21/25 07/21/25 07/21/25 19:52 21:48 23:08 WBC 13.9 H RBC 6.03 H Hgb 14.1 Hct 45.0 MCV 74.6 L MCH 23.4 L MCHC 31.3 RDW 18.6 H Plt Count 441 H MPV 8.5 L Immature Gran % (Auto) 0.9 H Neut % (Auto) 76.4 H Lymph % (Auto) 15.1 L [place] % (Auto) 7.1 Eos % (Auto) 0.1 Baso % (Auto) 0.4 Lymph # (Auto) 2.1 [place] # (Auto) 1.0 Eos # (Auto) 0.0 Baso # (Auto) 0.1 Abs Immat Gran (auto) 0.12 H Absolute Neuts (auto) 10.7 H Absolute Nucleated RBC 0.000 Nucleated RBC % (auto) 0.0 Sodium Potassium Chloride Carbon Dioxide Anion Gap BUN Creatinine Estim Creat Clear Calc Estimated GFR Random Glucose Lactic Acid Calcium Total Bilirubin Cancelled Direct Bilirubin Cancelled AST Cancelled ALT Cancelled Alkaline Phosphatase Cancelled Troponin I High Sens < 2.7 Total Protein Cancelled Albumin Cancelled Lipase Cancelled Urine Color Yellow Urine Appearance Clear Urine pH >= 9.0 Ur Specific [place] 1.020 Urine Protein Trace Urine Glucose (UA) Negative Urine Ketones Negative Urine Blood Negative Urine Nitrite Negative Ur Leukocyte Esterase Negative Stool Occult Blood POSITIVE Urine Opiates Screen Not Detected Ur Buprenorphine Scrn Not Detected Ur Oxycodone Screen Not Detected Urine Methadone Screen Not Detected Urine Fentanyl Screen Not Detected Ur Barbiturates Screen Not Detected Ur Phencyclidine Scrn Not Detected Ur Amphetamines Screen POSITIVE H U Benzodiazepines Scrn Not Detected Urine Cocaine Screen Not Detected U Marijuana (THC) Screen Not Detected 07/21/25 07/22/25 23:10 09:18 WBC 12.8 H RBC 5.07 Hgb 11.8 L Hct 37.8 L MCV 74.6 L MCH 23.3 L MCHC 31.2 RDW 17.5 H Plt Count 432 H MPV 8.5 L Immature Gran % (Auto) 0.5 H Neut % (Auto) 71.6 Lymph % (Auto) 17.3 L [place] % (Auto) 10.2 Eos % (Auto) 0.2 Baso % (Auto) 0.2 Lymph # (Auto) 2.2 [place] # (Auto) 1.3 H Eos # (Auto) 0.0 Baso # (Auto) 0.0 Abs Immat Gran (auto) 0.07 H Absolute Neuts (auto) 9.2 H Absolute Nucleated RBC 0.000 Nucleated RBC % (auto) 0.0 Sodium 136 136 Potassium 4.2 D 4.0 Chloride 105 102 Carbon Dioxide 22 26 Anion Gap 13 12 BUN 7 L 6 L Creatinine 0.67 0.67 Estim Creat Clear Calc 159.3 159.3 Estimated GFR > 60 > 60 Random Glucose 107 101 Lactic Acid 1.8 Calcium 8.9 8.4 Total Bilirubin 0.2 Direct Bilirubin < 0.2 AST 63 H ALT 34 Alkaline Phosphatase 82 Troponin I High Sens Total Protein 8.4 H Albumin 4.2 Lipase 9 Urine Color Urine Appearance Urine pH Ur Specific [place] Urine Protein Urine Glucose (UA) Urine Ketones Urine Blood Urine Nitrite Ur Leukocyte Esterase Stool Occult Blood Urine Opiates Screen Ur Buprenorphine Scrn Ur Oxycodone Screen Urine Methadone Screen Urine Fentanyl Screen Ur Barbiturates Screen Ur Phencyclidine Scrn Ur Amphetamines Screen U Benzodiazepines Scrn Urine Cocaine Screen U Marijuana (THC) Screen Narrative Narrative: EKG 07/21/25 Vent. Rate : 86 BPM Atrial Rate : 86 BPM P-R Int : 106 ms QRS Dur : 92 ms QT Int : 368 ms P-R-T Axes : 77 82 52 degrees QTcB Int : 440 ms Sinus rhythm with sinus arrhythmia with short CT Otherwise normal ECG When compared with ECG of 09-Jun-2025 08:02, ST no longer depressed in Inferior leads Documented by User: Bhavin Odom MD 07/23/25 13:49 [facility] Past Medical History Medical History HIV disease Methamphetamine abuse HIV (human immunodeficiency virus infection) Functional capacity: independent ambulation Family History Family history of problems with anesthesia: Unobtainable Surgical History History of Problems with Anesthesia: No Social History Social History Household Members: None Household Members Other:: homeless for 1 month, staying with grandma Housing: Homeless Do you presently have visiting nurse or other home services: No Alcohol intake: current Alcohol intake frequency: holidays/special occasions only Comment: 1:1 Patient Tobacco Use Status: Current everyday Tobacco user Tobacco use type: Smokeless Tobacco Second Hand Smoke Exposure: No Substance Use Type: Amphetamines service: No Meds Allergies Allergy/AdvReac Type Severity Reaction Status Date / Time No Known Allergies Allergy Verified 07/21/25 18:30 Home Medications ?Medication ?Instructions ?Recorded ?Confirmed ?Last Taken ?Type divalproex 500 mg tablet,delayed 1,000 mg PO BID 07/22/25 07/22/25 Unknown History release Exam Exam Date and Time: 07/23/25 Airway Mallampati Class: II TM Dist: >3cm Neck ROM: Full Loose/Missing/Broken Teeth: No Heart: normal Lungs: normal Other: normal Assessment and Plan Assessment Anesthesia Assessment: Anesthesia Plan Discussed and Chart Reviewed Final Anesthetic Review Family History of Problems with Anesthesia: Unobtainable History of Problems with Anesthesia: No NPO: Yes ASA Class: II and III Final Preanesthetic Review: No Changes in Pt Med Stat, Meds/Allgs Chart Reviewed, Consent Obtained/Reviewed and Anes Risks/Benef Reviewed Patient Risk: Low Procedure Risk: Low Anesthetic Plan Anesthetic Plan: MAC: Disposition: Standard PACU
--- NOTE | 2025-07-22 15:27 | PC.NURSE ---
patient refused sequentials ,encouraged activity,risks explained
--- NOTE | 2025-07-22 16:07 | MHC.CM.PN ---
CM MET WITH PT WHO WAS VERY LETHARGIC HE DID WAKE UP TO SAY HE WAS CURRENTLY HOMELESS AND HAS BEEN COUCH SURFING, BUT WAS UNABLE TO CONTINUE THE CONVERSATION CM WILL REVISIT TO DETERMINE IF HE IS INTERESTED IN A HALFWAY OR PROGRAM AT [place]
[2025-07-22] MEDS: Simethicone 40 MG/0.6 ML ORAL.SUSP PO ×2 (17:20→20:40)
--- NOTE | 2025-07-22 17:24 | PC.NURSE ---
Patient refused Miralax ,RN encouraged patient to ask for it when ready.Patient is yelling at staff,[place],HOLDEN Machado and train dispatcherPAMELA Aleman assisting with patient
--- NOTE | 2025-07-22 17:30 | PC.NURSE ---
requested for Dr. Villafana to see patient,patient informed
[2025-07-22] MEDS: diazePAM 10 MG/2 ML CARTRIDGE 5 MG IVPUSH (18:02)
--- NOTE | 2025-07-22 18:19 | PC.NURSE ---
Ptient extremly anxious ,yelling ,dose of Valium was administered as ordered,HIM SPECIALIST and RN checking on patient frequently
[2025-07-23] VITALS (13 sets, daily range): BP systolic 84–184; BP diastolic 36–98; PULSE 108–136; RESP 12–20; TEMP 36–37.6; O2SAT 97–100
[2025-07-23] MEDS: Milk of Magnesia 30 ML ORAL.SUSP PO (00:49)
--- NOTE | 2025-07-23 03:48 | PM.EVENT ---
Event Note Date of Service: 07/23/25 Event Note: pt threatening to leave AMA due to uncontrolled pain. pt complaining of severe pain in L back, LLQ and rectum. received Dilaudid 2 hours ago. suggested oxycodone 5mg x1 dose at this time. pt agreeable with plan. Time Spent With Patient Time: Total time managing care of this patient today ____ minutes.
[2025-07-23] MEDS: oxyCODONE HCl Immed Release 5 MG TABLET PO (03:54)
[2025-07-23] MEDS: metroNIDAZOLE/NS 500 MG/100 ML PIGGYBACK 100 MG IV ×3 (03:57→20:06)
[2025-07-23 06:44] LABS: Hematocrit 36.5 % (42.0-52.0); Hemoglobin 11.5 g/dl (14.0-18.0); Mean Corpuscular HGB Conc 31.5 g/dl (31.0-36.0); Mean Corpuscular Hemoglobin 23.0 pg (27.0-33.0); Mean Corpuscular Volume 73.1 fL (80.0-98.0); NRBC Abs Auto 0.000 X10*3/uL (0.0-0.012); NRBC Pct Auto 0.0 /100WBC (0.0-0.2); Platelet Count 466 X10*3/uL (160-400); Red Blood Count 4.99 X10*6/uL (4.60-5.80); White Blood Count 24.3 X10*3/uL (4.8-10.8)
[2025-07-23 06:58] LABS: Anion Gap 12 (12-20); Blood Urea Nitrogen 8 mg/dL (9-16); Calcium 8.6 mg/dL (8.4-10.2); Carbon Dioxide 26 mmol/L (22-29); Chloride 97 mmol/L (96-108); Creatinine Clr Calc Pharmacy 166.8; Estimated Glomerular Filt Rate > 60; Potassium 4.2 mmol/L (3.3-5.1); Sodium 131 mmol/L (135-145)
[2025-07-23] MEDS: Bictegrav/Emtricit/Tenofov Ala TABLET 1 TAB PO (08:15)
[2025-07-23] MEDS: Simethicone 40 MG/0.6 ML ORAL.SUSP PO ×2 (08:16→16:46)
[2025-07-23] MEDS: 0.9 % Sodium Chloride Flush 3 ML SYRINGE IVFLUSH ×3 (08:25→21:27)
--- NOTE | 2025-07-23 09:50 | P.PNIM_ITS ---
Subjective Subjective Date of Service: 07/23/25 Interval History: pain somewhat better Physical Exam 2 Vital Signs: Vital Signs: Last Vital Signs Temp 96.8 F 07/23/25 03:40 Pulse 112 H 07/23/25 03:40 Resp 18 07/23/25 08:16 BP 184/98 H 07/23/25 03:40 Pulse Ox 100 07/23/25 03:40 O2 Del Method Room Air 07/23/25 03:40 BMI result Body Mass Index 22.1 Const: General: comfortable and no acute distress O rientation/consciousness: patient oriented x3 Resp: Effort & Inspection: normal respiratory effort and able to speak in complete sentences GI: Inspection: No distended Palpation (GI): Soft to palpation, Tenderness to palpation present (GI) (throughout) and Guarding due to palpation present (GI) (voluntary) Auscultation: normal bowel sounds Neuro: General: patient oriented x3 Objective Data Active Medications Acetaminophen (Acetaminophen 325 Mg Tablet) 650 mg PO Q6H PRN PRN Reason: Pain, Mild 1-3,fever,headache Bictegravir/Emtricitabine/Tenofovir (Bictegrav/Emtricit/Tenofov Ala Tablet) 1 tab PO DAILY [facility] Last Admin: 07/23/25 08:15 Dose: 1 tab Documented By: [place] Calcium Carbonate (Calcium Carbonate 750 Mg Tab.Chew) 750 mg PO Q4H PRN PRN Reason: Heartburn Divalproex Sodium (Divalproex Sodium 500 Mg Tablet.) 1,000 mg PO BID [facility] Last Admin: 07/23/25 08:15 Dose: 1,000 mg Documented By: [place] Heparin Sodium (Porcine) (Heparin Sodium,Porcine 5,000 Unit/Ml Vial) 5,000 unit SUBCUT Q8H [facility] Last Admin: 07/23/25 05:51 Dose: Not Given Documented By: SHEREEN Non-Admin Reason: Patient Refused Hydromorphone HCl (Hydromorphone Hcl 1 Mg/Ml Syringe) 0.5 mg IVPUSH Q3H PRN; Protocol PRN Reason: Pain, Severe (Pain Scale 7-10) Last Admin: 07/23/25 08:16 Dose: 0.5 mg Documented By: [place] Ceftriaxone Sodium 1 gm/ (Sodium Chloride) 50 mls @ 100 mls/hr IV Q24H [facility] Last Infusion: 07/23/25 06:42 Dose: Infused Documented By: SHEREEN Metronidazole (Flagyl) 500 mg in 100 mls @ 100 mls/hr IV Q8H [facility] Last Infusion: 07/23/25 05:50 Dose: Infused Documented By: SHEREEN Magnesium Hydroxide (Milk Of Magnesia 30 Ml Oral.Susp) 30 ml PO DAILY PRN PRN Reason: Constipation Last Admin: 07/23/25 00:49 Dose: 30 ml Documented By: SHEREEN Melatonin (Melatonin 3 Mg Tablet) 6 mg PO BEDTIME PRN PRN Reason: Insomnia Last Admin: 07/22/25 20:40 Dose: 6 mg Documented By: SHEREEN Polyethylene Glycol (Polyethylene Glycol 3350 17 Gm Powd.Pack) 17 gm PO DAILY [facility] Last Admin: 07/23/25 08:16 Dose: 17 gm Documented By: [place] Simethicone (Simethicone 40 Mg/0.6 Ml Oral.Susp) 40 mg PO TID [facility] Last Admin: 07/23/25 08:16 Dose: 40 mg Documented By: [place] Sodium Chloride (0.9 % Sodium Chloride Flush 3 Ml Syringe) 3 ml IVFLUSH QSHIFT [facility] Last Admin: 07/23/25 08:25 Dose: 3 ml Documented By: [place] Labs 07/23/25 05:52 07/23/25 05:52 Labs: Laboratory Results - last 24 hr 07/23/25 05:52 MCV 73.1 L MCH 23.0 L MCHC 31.5 RDW 17.5 H Plt Count 466 H MPV 9.0 L Absolute Nucleated RBC 0.000 Nucleated RBC % (auto) 0.0 Anion Gap 12 Estim Creat Clear Calc 166.8 Estimated GFR > 60 Random Glucose 93 Calcium 8.6 Assessment and Plan (1) Noncompliance with medication regimen: Status: Acute Plan 25M HIV, mood disorder, polysubstance dependence, epilepsy, non complaince, presented with abd pain and brbpr brbpr colitis rocephin, flagyl plan for flex sig monitor cbc - stable hiv restart haart, id eval polysubstance dependence abstinence recommended epilepsy depakote dvt porphylaxis - mechanical due to brbpr full code reason for continued hospitalization:working up bleed Quality Stroke Does the patient have a stroke diagnosis?: No VTE Prior VTE?: No VTE Risk Level:: Medical - moderate - high VTE Device Contraindication: Treatment Not Indicated VTE Drug Contraindication: N/A - Med Ordered
--- NOTE | 2025-07-23 14:43 | MHC.SHP ---
Pre-Procedural Eval Section A - 24 Hr Update-Section A only Date of Service: 07/23/25 The patient is an INPATIENT: Yes Changes since office visit: Yes New Medical Problems, Yes Changes in Medication and Yes Patient answered all questions; No Cold of Flu in the past 2 weeks The patient has been examined within 24 hours of the surgical procedure. The History & Physical has been completed within 30 days and I have reviewed it.: Yes Section B - Complete if H&P > 30 days Chief Complaint: Colitis Allergies: Allergies Allergy/AdvReac Type Severity Reaction Status Date / Time No Known Allergies Allergy Verified 07/21/25 18:30 Plan Diagnosis/Plan: Change (Proceed with flexible sigmoidoscopy.) I have reviewed the history and physical and performed a pertinent physical examination on my patient. No changes have occurred unless specified. Time Spent With Patient Time: Total time managing care of this patient today ____ minutes.
--- NOTE | 2025-07-23 14:51 | W.PM.OPN ---
Operative Note Operative Note Date of Service: 07/23/25 Narrative: FLEXIBLE SIGMOIDOSCOPY TILL 30 CM WITH BIOPSIES Pre-op diagnosis: Rectal bleeding Post-op diagnosis:? Left-sided colitis, hemorrhoids Endoscopist:? Suresh Torres MD Anesthesia:?MAC Consent: Indications for the procedure and potential complications of bleeding, perforation, reaction to medications and missed diagnosis were discussed with the patient and informed consent was obtained. Instrument: Olympus PCF H 190 L variable stiffness pediatric colonoscope Monitoring: Vital signs and clinical assessment, intermittent blood pressure monitoring, continuous EKG monitoring, Pulse oximetry and Carbon Dioxide monitoring were done throughout the procedure. Please see anesthesia flowsheet. Procedure: The patient was placed in the left lateral decubitis position and pre-procedure medications were administered. After a digital rectal examination of the ano-rectum, the video colonoscope was inserted into the rectum and advanced through the colon to 30 cms into the sigmoid colon. The colonoscope was slowly withdrawn in a retrograde panoramic fashion and the colon mucosa was carefully examined including a retroflexed view of the rectum. Findings and interventions are described below. Findings: Sigmoid Colon: Edema, erythema with scattered aphthoid ulcers throughout the sigmoid colon, Rectum: Edema, erythema with scattered aphthoid ulcers throughout the rectum, Ano-rectum: Moderate internal hemorrhoids Colon preparation: Good after copious irrigation. Impression and Post Procedure Diagnosis: Flexible sigmoidoscopy Findings: Edema, erythema with scattered aphthoid ulcers throughout the sigmoid colon - biopsies were obtained for histology and CMV culture. Moderate hemorrhoids on retroflexed exam. Plan: Await biopsy results Hydrocortisone cream for hemorrhoids Above findings were reviewed with the patient.
--- NOTE | 2025-07-23 15:35 | PM.PNGS ---
Subjective Subjective Date of Service: 07/23/25 Interval history: Seen earlier on rounds Says he has had no bleeding per rectum Describes some vague abdominal pain No nausea or vomiting Physical Exam Vital Signs: Vital Signs: Last Vital Signs Temp 99.7 F 07/23/25 15:20 Pulse 131 H 07/23/25 15:30 Resp 18 07/23/25 15:30 BP 88/38 L 07/23/25 15:30 Pulse Ox 99 07/23/25 15:30 O2 Del Method Nasal Cannula 07/23/25 15:30 O2 Flow Rate 2 07/23/25 15:30 BMI result Body Mass Index 22.1 Const: Other: Very anxious, as baseline General: no acute distress Resp: Effort & Inspection: normal respiratory effort GI: Palpation (GI): Soft to palpation, not firm, Tenderness to palpation present (GI) (Vague diffuse tenderness) and no guarding Objective Data Active Medications Acetaminophen (Acetaminophen 325 Mg Tablet) 650 mg PO Q6H PRN PRN Reason: Pain, Mild 1-3,fever,headache Bictegravir/Emtricitabine/Tenofovir (Bictegrav/Emtricit/Tenofov Ala Tablet) 1 tab PO DAILY [facility] Last Admin: 07/23/25 08:15 Dose: 1 tab Documented By: LONDON Calcium Carbonate (Calcium Carbonate 750 Mg Tab.Chew) 750 mg PO Q4H PRN PRN Reason: Heartburn Divalproex Sodium (Divalproex Sodium 500 Mg Tablet.Dr) 1,000 mg PO BID [facility] Last Admin: 07/23/25 08:15 Dose: 1,000 mg Documented By: LONDON Heparin Sodium (Porcine) (Heparin Sodium,Porcine 5,000 Unit/Ml Vial) 5,000 unit SUBCUT Q8H [facility] Last Admin: 07/23/25 05:51 Dose: Not Given Documented By: SHEREEN Non-Admin Reason: Patient Refused Hydromorphone HCl (Hydromorphone Hcl 1 Mg/Ml Syringe) 0.5 mg IVPUSH Q3H PRN; Protocol PRN Reason: Pain, Severe (Pain Scale 7-10) Last Admin: 07/23/25 11:16 Dose: 0.5 mg Documented By: LONDON Ceftriaxone Sodium 1 gm/ (Sodium Chloride) 50 mls @ 100 mls/hr IV Q24H [facility] Last Infusion: 07/23/25 06:42 Dose: Infused Documented By: SHEREEN Metronidazole (Flagyl) 500 mg in 100 mls @ 100 mls/hr IV Q8H [facility] Last Infusion: 07/23/25 12:33 Dose: Infused Documented By: LONDON Magnesium Hydroxide (Milk Of Magnesia 30 Ml Oral.Susp) 30 ml PO DAILY PRN PRN Reason: Constipation Last Admin: 07/23/25 00:49 Dose: 30 ml Documented By: SHEREEN Melatonin (Melatonin 3 Mg Tablet) 6 mg PO BEDTIME PRN PRN Reason: Insomnia Last Admin: 07/22/25 20:40 Dose: 6 mg Documented By: SHEREEN Polyethylene Glycol (Polyethylene Glycol 3350 17 Gm Powd.Pack) 17 gm PO DAILY [facility] Last Admin: 07/23/25 08:16 Dose: 17 gm Documented By: LONDON Simethicone (Simethicone 40 Mg/0.6 Ml Oral.Susp) 40 mg PO TID [facility] Last Admin: 07/23/25 08:16 Dose: 40 mg Documented By: LONDON Sodium Biphosphate/Sodium Phosphate (Sodium Phosphate,[place]-Dibasic 133 Ml Enema) 133 ml SD ONCE PRN PRN Reason: Pre-Op Surgical Prep Sodium Chloride (0.9 % Sodium Chloride Flush 3 Ml Syringe) 3 ml IVFLUSH QSHIFT [facility] Last Admin: 07/23/25 08:25 Dose: 3 ml Documented By: LONDON Labs 07/23/25 05:52 07/23/25 05:52 Labs: Laboratory Results - last 24 hr 07/23/25 05:52 MCV 73.1 L MCH 23.0 L MCHC 31.5 RDW 17.5 H Plt Count 466 H MPV 9.0 L Absolute Nucleated RBC 0.000 Nucleated RBC % (auto) 0.0 Anion Gap 12 Estim Creat Clear Calc 166.8 Estimated GFR > 60 Random Glucose 93 Calcium 8.6 Microbiology Microbiology Results: Microbiology 07/22/25 10:18 Blood Culture - Preliminary Blood - Venous No growth after 24 hours. 07/22/25 09:15 Blood Culture - Preliminary Blood - Venous No growth after 24 hours. Procedures Date of Service Date of Service: 07/23/25 Progress Note: A&P Assessment and plan (1) Proctocolitis: Status: Acute Assessment and Plan: Flex sig done by Dr. Torres today shows colitis, on the left side Exam remains benign No significant bleeding per rectum Recommendations as per Dr. Torres Reconsult as necessary Time Spent With Patient Time: Total time managing care of this patient today ____ minutes. Quality Stroke Does the patient have a stroke diagnosis?: No VTE Prior VTE?: No VTE Risk Level:: Medical - moderate - high VTE Device Contraindication: Treatment Not Indicated VTE Drug Contraindication: N/A - Med Ordered
--- NOTE | 2025-07-23 15:58 | MHC.CM.PN ---
PT NOT MEDICALLY CLEARED, FLEX SIG COMPLETED TODAY DCP TBD: FDC VS PROGRAM VS RETURN TO STAYING WITH OTHERS WILL NEED LYFT
--- NOTE | 2025-07-23 23:36 | P.CNID_ITS ---
History of Present Illness Data of Consult Service Date: 07/23/25 Requesting physician: Ermias Ivory Primary Care Provider: Real Hightower MD HPI Reason for consult: HIV,abdominal and rectal discomfort He presents with lower abdominal and rectal pain over last week. He has not had this before and is scheduled for flex sig this week He goes to [place] He reports not being aware of CD4 count but reports being on Biktarv Review of Systems 2 Review of Systems: Yes all other systems are reviewed and are negative [facility] Past Medical History Medical History (Updated 07/23/25 @ 23:41 by Mona Knight MD) HIV (human immunodeficiency virus infection) HIV disease Methamphetamine abuse Family History Family history: reviewed and not pertinent Social History Social History Household Members: None Household Members Other:: homeless for 1 month, staying with grandma Housing: Homeless Do you presently have visiting nurse or other home services: No Alcohol intake: current Alcohol intake frequency: holidays/special occasions only Comment: 1:1 Patient Tobacco Use Status: Current everyday Tobacco user Tobacco use type: Smokeless Tobacco Second Hand Smoke Exposure: No Substance Use Type: Amphetamines service: No Meds Allergies Allergy/AdvReac Type Severity Reaction Status Date / Time No Known Allergies Allergy Verified 07/21/25 18:30 Active Medications: Current Medications Acetaminophen (Acetaminophen 325 Mg Tablet) 650 mg PO Q6H PRN PRN Reason: Pain, Mild 1-3,fever,headache Last Admin: 07/23/25 21:24 Dose: 650 mg Bictegravir/Emtricitabine/Tenofovir (Bictegrav/Emtricit/Tenofov Ala Tablet) 1 tab PO DAILY [facility] Last Admin: 07/23/25 08:15 Dose: 1 tab Calcium Carbonate (Calcium Carbonate 750 Mg Tab.Chew) 750 mg PO Q4H PRN PRN Reason: Heartburn Divalproex Sodium (Divalproex Sodium 500 Mg Tablet.Dr) 1,000 mg PO BID [facility] Last Admin: 07/23/25 22:32 Dose: Not Given Heparin Sodium (Porcine) (Heparin Sodium,Porcine 5,000 Unit/Ml Vial) 5,000 unit SUBCUT Q8H [facility] Last Admin: 07/23/25 21:56 Dose: Not Given Hydromorphone HCl (Hydromorphone Hcl 1 Mg/Ml Syringe) 0.5 mg IVPUSH Q3H PRN; Protocol PRN Reason: Pain, Severe (Pain Scale 7-10) Last Admin: 07/23/25 20:24 Dose: 0.5 mg Ceftriaxone Sodium 1 gm/ (Sodium Chloride) 50 mls @ 100 mls/hr IV Q24H [facility] Last Infusion: 07/23/25 06:42 Dose: Infused Metronidazole (Flagyl) 500 mg in 100 mls @ 100 mls/hr IV Q8H [facility] Last Infusion: 07/23/25 21:27 Dose: Infused Magnesium Hydroxide (Milk Of Magnesia 30 Ml Oral.Susp) 30 ml PO DAILY PRN PRN Reason: Constipation Last Admin: 07/23/25 00:49 Dose: 30 ml Melatonin (Melatonin 3 Mg Tablet) 6 mg PO BEDTIME PRN PRN Reason: Insomnia Last Admin: 07/23/25 21:24 Dose: 6 mg Polyethylene Glycol (Polyethylene Glycol 3350 17 Gm Powd.Pack) 17 gm PO DAILY [facility] Last Admin: 07/23/25 08:16 Dose: 17 gm Simethicone (Simethicone 40 Mg/0.6 Ml Oral.Susp) 40 mg PO TID [facility] Last Admin: 07/23/25 20:13 Dose: Not Given Sodium Biphosphate/Sodium Phosphate (Sodium Phosphate,[place]-Dibasic 133 Ml Enema) 133 ml [place] ONCE PRN PRN Reason: Pre-Op Surgical Prep Sodium Chloride (0.9 % Sodium Chloride Flush 3 Ml Syringe) 3 ml IVFLUSH QSHIFT [facility] Last Admin: 07/23/25 21:27 Dose: 3 ml Home Medications ?Medication ?Instructions ?Recorded ?Confirmed ?Last Taken ?Type divalproex 500 mg tablet,delayed 1,000 mg PO BID 07/2207/22/25 Unknown History release Physical Exam 2 Vital Signs: Vital Signs: Last Vital Signs Temp 97.4 F 07/23/25 19:41 Pulse 108 H 07/23/25 19:41 Resp 18 07/23/25 19:41 BP 121/66 07/23/25 19:41 Pulse Ox 97 07/23/25 19:41 O2 Del Method Room Air 07/23/25 19:41 O2 Flow Rate 2 07/23/25 15:45 BMI result Body Mass Index 22.1 Results Labs 07/23/25 05:52 07/23/25 05:52 Labs: Short CBC 07/23/25 Range/Units 05:52 WBC 24.3 H (4.8-10.8) X10*3/uL Hgb 11.5 L (14.0-18.0) g/dl Hct 36.5 L (42.0-52.0) % Plt Count 466 H (160-400) X10*3/uL BMP 07/23/25 05:52 Sodium 131 L Potassium 4.2 Chloride 97 Carbon Dioxide 26 BUN 8 L Creatinine 0.64 Calcium 8.6 Microbiology Microbiology Results: Microbiology 07/22/25 10:18 Blood - Venous Blood Culture - Preliminary No growth after 24 hours. 07/22/25 09:15 Blood - Venous Blood Culture - Preliminary No growth after 24 hours. Assessment and Plan (1) Acute pyelonephritis: Status: Acute (2) HIV (human immunodeficiency virus infection): Status: Acute Plan He is appropriate for CTX and flagyl treat proctocolitis Oral cephalosporin for four weeks and flagyl Await cultures from wound
[2025-07-24] MEDS: metroNIDAZOLE/NS 500 MG/100 ML PIGGYBACK 100 MG IV (04:32)
[2025-07-24 05:51] VITALS: BP 112/58; PULSE 101; RESP 18; TEMP 36.3; O2SAT 98
[2025-07-24] MEDS: Simethicone 40 MG/0.6 ML ORAL.SUSP PO (08:10)
[2025-07-24] MEDS: Bictegrav/Emtricit/Tenofov Ala TABLET 1 TAB PO (08:10)
[2025-07-24] MEDS: 0.9 % Sodium Chloride Flush 3 ML SYRINGE IVFLUSH (08:11)
[2025-07-24 08:13] VITALS: BP 117/72; PULSE 96; RESP 16; TEMP 36.7; O2SAT 97
--- NOTE | 2025-07-24 08:54 | P.PNIM_ITS ---
Subjective Subjective Date of Service: 07/24/25 Interval History: slowly improving Physical Exam 2 Vital Signs: Vital Signs: Last Vital Signs Temp 98.1 F 07/24/25 08:13 Pulse 96 07/24/25 08:13 Resp 16 07/24/25 08:13 BP 117/72 07/24/25 08:13 Pulse Ox 97 07/24/25 08:13 O2 Del Method Room Air 07/24/25 08:13 O2 Flow Rate 2 07/23/25 15:45 BMI result Body Mass Index 22.1 Const: Other: Very anxious, as baseline General: no acute distress Resp: Effort & Inspection: normal respiratory effort GI: Palpation (GI): Soft to palpation, not firm, Tenderness to palpation present (GI) (Vague diffuse tenderness) and no guarding Objective Data Active Medications Acetaminophen (Acetaminophen 325 Mg Tablet) 650 mg PO Q6H PRN PRN Reason: Pain, Mild 1-3,fever,headache Last Admin: 07/23/25 21:24 Dose: 650 mg Documented By: TATY Bictegravir/Emtricitabine/Tenofovir (Bictegrav/Emtricit/Tenofov Ala Tablet) 1 tab PO DAILY [facility] Last Admin: 07/24/25 08:10 Dose: 1 tab Documented By: ORALIA Calcium Carbonate (Calcium Carbonate 750 Mg Tab.Chew) 750 mg PO Q4H PRN PRN Reason: Heartburn Divalproex Sodium (Divalproex Sodium 500 Mg Tablet.Dr) 1,000 mg PO BID [facility] Last Admin: 07/24/25 08:11 Dose: Not Given Documented By: ORALIA Non-Admin Reason: Patient Refused Heparin Sodium (Porcine) (Heparin Sodium,Porcine 5,000 Unit/Ml Vial) 5,000 unit SUBCUT Q8H [facility] Last Admin: 07/24/25 05:51 Dose: Not Given Documented By: YOBANI Non-Admin Reason: Patient Refused Hydromorphone HCl (Hydromorphone Hcl 1 Mg/Ml Syringe) 0.5 mg IVPUSH Q3H PRN; Protocol PRN Reason: Pain, Severe (Pain Scale 7-10) Last Admin: 07/24/25 08:11 Dose: 0.5 mg Documented By: ORALIA Ceftriaxone Sodium 1 gm/ (Sodium Chloride) 50 mls @ 100 mls/hr IV Q24H [facility] Last Infusion: 07/24/25 06:38 Dose: Infused Documented By: YOBANI Metronidazole (Flagyl) 500 mg in 100 mls @ 100 mls/hr IV Q8H [facility] Last Infusion: 07/24/25 05:52 Dose: Infused Documented By: YOBANI Magnesium Hydroxide (Milk Of Magnesia 30 Ml Oral.Susp) 30 ml PO DAILY PRN PRN Reason: Constipation Last Admin: 07/23/25 00:49 Dose: 30 ml Documented By: SHEREEN Melatonin (Melatonin 3 Mg Tablet) 6 mg PO BEDTIME PRN PRN Reason: Insomnia Last Admin: 07/23/25 21:24 Dose: 6 mg Documented By: TATY Polyethylene Glycol (Polyethylene Glycol 3350 17 Gm Powd.Pack) 17 gm PO DAILY [facility] Last Admin: 07/24/25 08:10 Dose: 17 gm Documented By: ORALIA Simethicone (Simethicone 40 Mg/0.6 Ml Oral.Susp) 40 mg PO TID [facility] Last Admin: 07/24/25 08:10 Dose: 40 mg Documented By: ORALIA Sodium Biphosphate/Sodium Phosphate (Sodium Phosphate,[place]-Dibasic 133 Ml Enema) 133 ml SD ONCE PRN PRN Reason: Pre-Op Surgical Prep Sodium Chloride (0.9 % Sodium Chloride Flush 3 Ml Syringe) 3 ml IVFLUSH QSHIFT [facility] Last Admin: 07/24/25 08:11 Dose: 3 ml Documented By: ORALIA Labs 07/23/25 05:52 07/23/25 05:52 Microbiology Microbiology Results: Microbiology 07/22/25 10:18 Blood Culture - Preliminary Blood - Venous No growth after 24 hours. 07/22/25 09:15 Blood Culture - Preliminary Blood - Venous No growth after 24 hours. Assessment and Plan (1) Noncompliance with medication regimen: Status: Acute Plan 25M HIV, mood disorder, polysubstance dependence, epilepsy, non complaince, presented with abd pain and brbpr brbpr colitis rocephin, flagyl 07/23/25 flex sig - Edema, erythema with scattered aphthoid ulcers throughout the sigmoid colon - biopsies were obtained for histology and CMV culture. Moderate hemorrhoids on retroflexed exam. no further bleeding hydrocortisone rectal, follow up biopsy results ID appreciated - on dc 4 weeks ceftin, flagyl, continue biktarvy hiv restart haart, id eval polysubstance dependence abstinence recommended epilepsy depakote mild hyponatremia monitor dvt porphylaxis - mechanical due to brbpr full code reason for continued hospitalization: cultures pending, pain control Quality Stroke Does the patient have a stroke diagnosis?: No VTE Prior VTE?: No VTE Risk Level:: Medical - moderate - high VTE Device Contraindication: Treatment Not Indicated VTE Drug Contraindication: N/A - Med Ordered
--- NOTE | 2025-07-24 09:58 | P.DS_ITS ---
DS: Providers Provider Date of Service: 07/24/25 Date of admission: 07/22/25 02:39 Date of discharge: 07/24/25 Primary care physician: Real Hightower MD Consults: 07/22/25 04:47 Consult to Gastroenterology Routine Consulting Provider: [facility] Reason for consultation: BRBPR Consult to General Surgery Routine Consulting Provider: [facility] General Surgeons Reason for consultation: Proctocolitis Consult to Infectious Diseases Routine Consulting Provider: [facility] Reason for consultation: HIV not on medications; colitis. DS: Diagnosis Discharge Diagnosis (1) Noncompliance with medication regimen: Status: Acute DS: Summary Hospital Course Hospital Course: from initial hpi: 25-year-old male with a past medical history of cholecystitis, HIV, depression, recent pyelonephritis; polysubstance abuse presented to the hospital today with a chief complaint of diffuse abdominal pain. Patient reports that over the past 3 days he has been having abdominal pain, nausea and vomiting. Denies any fevers. Denies any urinary complaints. Mentioned that during his admission for pyelonephritis recently he left AMA and interrupted the therapy. Patient denied any chest pain or palpitations. Patient also reports over the past 2 days he has been having bright red blood per rectum. Denies any lightheadedness or dizziness. Patient is a poor historian. Review of all other systems is negative except mentioned above ER course: Per ER team, patient has diffuse abdominal tenderness; seizure and pelvis shows findings concerning for proctocolitis. Also noted to have final sequelae of pyelonephritis. UA negative. hospital course: Patient was admitted for bright red blood per rectum and colitis. Was treated with ceftriaxone and Flagyl. On 07/23/2025 underwent flex sigmoidoscopy which showed edema, erythema with scattered aphthoid ulcers throughout the sigmoid colon, biopsies were obtained for histology and CMV culture, also noted to have moderate hemorrhoids. He had no further bleeding and hemoglobin remained stable recommendations were to start hydrocortisone rectally and follow up for biopsy results. Was seen by infectious disease who recommended restarting Biktarvy and completing 4 weeks of Ceftin and Flagyl. For HIV was restarted on Biktarvy as mentioned. For polysubstance dependence abstinence is recommended. For epilepsy and mood disorder was continued on Depakote. For mild hyponatremia can monitor as outpatient. Patient is feeling better plan was for discharge home however patient eloped before discharge complete Time Attestation Discharge Coordination Time (in mins): 34 Quality: Safe Use of Opioids Does Pt have an Active Cancer Diagnosis on the Problem List?: No Quality: Stroke Does the patient have a stroke diagnosis?: No Physical Exam Vital Signs: Vital Signs: Last Vital Signs Temp 98.1 F 07/24/25 08:13 Pulse 96 07/24/25 08:13 Resp 16 07/24/25 08:13 BP 117/72 07/24/25 08:13 Pulse Ox 97 07/24/25 08:13 O2 Del Method Room Air 07/24/25 08:13 O2 Flow Rate 2 07/23/25 15:45 BMI result Body Mass Index 22.1 Const: Other: Very anxious, as baseline General: no acute distress Resp: Effort & Inspection: normal respiratory effort GI: Palpation (GI): Soft to palpation, not firm, Tenderness to palpation present (GI) (Vague diffuse tenderness) and no guarding DS: Data Data Completed and Pending Completed studies during hospitalization [Text1]: Procedures Drainage of Perineum Subcutaneous Tissue and Fascia, Open Approach (12/23/24) Drainage of Spinal Canal, Percutaneous Approach, Diagnostic (09/11/24) Insertion of Endotracheal Airway into Trachea, Via Natural or Artificial Opening (09/11/24) Inspection of Spinal Canal, Percutaneous Approach (09/11/24) Introduction of Vasopressor into Peripheral Vein, Percutaneous Approach (09/11/24) Respiratory Ventilation, 24-96 Consecutive Hours (09/11/24) Pending studies at discharge: Pending at discharge 07/23/25 15:13 Surgical [PTH] Routine Labs on day of discharge: Preliminary micro results at discharge 07/22/25 10:18 Blood Culture - Preliminary Blood - Venous No growth after 24 hours. 07/22/25 09:15 Blood Culture - Preliminary Blood - Venous No growth after 24 hours. Discharge Plan Discharge Anticipated Discharge Date/Time: 07/24/25 09:45 Patient Disposition: Left Against Medical Advice Discharge Diagnosis: proctocolitis, hiv Referrals: Mona Knight MD [Physician, Infectious Disease] - 1 Week Real Hightower MD [Primary Care Provider, Internal Medicine] - 1 Week Suresh Torres MD [Physician, Gastroenterology] - 1 Week Discharge Medications: New Biktarvy 50-200-25 mg Tablet 1 tab PO DAILY 90 Days Qty: 90 0RF cefuroxime axetil 500 mg tablet 500 mg PO BID 28 Days Qty: 56 0RF metronidazole 500 mg tablet 500 mg PO BID 28 Days Qty: 56 0RF hydrocortisone [Proctozone-HC] 2.5 % Cream With Perineal Applicator 1 appl [place] BID 30 Days Qty: 30 0RF Continued divalproex 500 mg tablet,delayed release (DR/EC) 1,000 mg PO BID 90 Days Qty: 360 0RF Discharge Orders: Discharge Order (Routine); Ordered 07/24/25 Ordered By: Sotero Villafana Diet: Advance to usual diet Activity on Discharge: As tolerated Stand Alone Forms: Patient Portal Discharge page Print Language: Vietnamese Care Plan Goals: recovery Health Concerns: proctocolitis hiv Plan of Treatment: take meds as prescribed, follow up with ID and GI Assessment: see above
--- NOTE | 2025-07-24 10:04 | PC.NURSE ---
Patient did not want to wait for d/c paperwork, left the unit AMA, with IV in, Security called to intercept patient. Patient intercepted at the front lobby, brought back up to the unit by security, IV removed, patient escorted off the unit.
--- NOTE | 2025-07-24 10:11 | MHC.CM.PN ---
PT DISCHARGED AGAINST MEDICAL ADVICE
== END 2025-07-24 10:09 | disposition left against medical advice (07) | DRG 245 ==
LOC: HO.ED 07-22 02:20 → HO.EDOVER 07-22 02:47 → HO.S3 07-22 11:04
PROVIDERS: Hospitalist; Student in an Organized Health Care Education/Training Program; Admitting Provider Internal Medicine Gastroenterology; Emergency Provider Emergency Medicine; PCP Internal Medicine; Visit Provider Internal Medicine
PROC: 0DJD8ZZ Inspection of Lower Intestinal Tract, Via Natural or Artificial Opening Endoscopic (ICD-10-PCS; CPT 45330; principal; 2025-07-23 13:50)
DX: K51.511 Left sided colitis with rectal bleeding (principal); E87.1 Hypo-osmolality and hyponatremia; F17.210 Nicotine dependence, cigarettes, uncomplicated; Z21 Asymptomatic human immunodeficiency virus [HIV] infection status; K64.8 Other hemorrhoids; F19.20 Other psychoactive substance dependence, uncomplicated; G40.909 Epilepsy, unspecified, not intractable, without status epilepticus; Z91.148 Patient's other noncompliance with medication regimen for other reason; Z71.6 Tobacco abuse counseling; Z79.899 Other long term (current) drug therapy
CPT/HCPCS: 45331; 36415; 74177; 80048; 80076; 80307; 81003; 82272; 83605; 83690; 84484; 85025; 85027; 87040; 87110; 87140; 87496; 88305; 93005; 99221; 99285; J0696; J1171; J1308; J1644; J1836; J1885; J2003; J2270; J2405; J2543; J2704; J3010; J3360; Q9967

== ENCOUNTER → 2025-07-21 18:41 | Outpatient (BNV) | payer OTHER, SELFPAY | PROVIDERS: Admitting Provider Hospitalist; Emergency Provider Emergency Medicine; PCP Internal Medicine; Visit Provider Internal Medicine Cardiovascular Disease | DX: R07.9 Chest pain, unspecified (principal) | CPT/HCPCS: 93010 ==

== ENCOUNTER → 2025-07-21 21:22 | Outpatient (BNV) | payer OTHER, SELFPAY | PROVIDERS: Emergency Provider Emergency Medicine; PCP Internal Medicine; Visit Provider Radiology Diagnostic Radiology | DX: K63.89 Other specified diseases of intestine (principal); R93.421 Abnormal radiologic findings on diagnostic imaging of right kidney | CPT/HCPCS: 74177 ==

== ENCOUNTER → 2025-07-22 02:39 | Outpatient (BNV) | payer OTHER, SELFPAY | PROVIDERS: Admitting Provider Hospitalist; Emergency Provider Emergency Medicine; PCP Internal Medicine; Visit Provider Internal Medicine | DX: K52.9 Noninfective gastroenteritis and colitis, unspecified (principal); Z91.148 Patient's other noncompliance with medication regimen for other reason | CPT/HCPCS: 99223; 99233; 99239; 99499 ==

== ENCOUNTER → 2025-07-22 02:39 | Outpatient (BNV) | payer OTHER, SELFPAY | PROVIDERS: Admitting Provider Hospitalist; Emergency Provider Emergency Medicine; PCP Internal Medicine; Visit Provider Surgery | DX: K52.9 Noninfective gastroenteritis and colitis, unspecified (principal) | CPT/HCPCS: 99222; 99232 ==

== ENCOUNTER 2025-07-24 16:40 | Emergency (ER) | payer OTHER, SELFPAY ==
--- NOTE | ~2025-07-24 | XR_ITS ---
CLINICAL HISTORY: abd pain Supine and upright views of the abdomen Comparison: None Findings: Normal bowel gas pattern. Normal stool quantity. No abnormal calcifications. No pneumoperitoneum or pneumatosis. Bones unremarkable Impression: 1. Normal bowel gas pattern This document has been electronically signed by: Vicente Coffman MD on 07/24/2025 17:54:52
--- NOTE | 2025-07-24 17:02 | ED_ITS ---
HPI - General Adult General Chief complaint: Abdominal Pain Stated complaint: Was here and discharged today/feels worse Related Data Previous Rx's ?Medication ?Instructions ?Recorded bictegravir 50 mg-emtricitabine 1 tab PO DAILY 90 days #90 tabs 07/24/25 200 mg-tenofovir alafenam 25 mg tablet (Biktarvy) cefuroxime axetil 500 mg tablet 500 mg PO BID 28 days #56 tabs 07/24/25 divalproex 500 mg tablet,delayed 1,000 mg (2 x 500 mg) PO BID 90 07/24/25 release days #360 tabs hydrocortisone 2.5 % topical cream 1 appl [place] BID 30 da ys #30 grams 07/24/25 with perineal applicator (Proctozone-HC) metronidazole 500 mg tablet 500 mg PO BID 28 days #56 tabs 07/24/25 Allergies Allergy/AdvReac Type Severity Reaction Status Date / Time No Known Allergies Allergy Verified 07/25/25 00:31 [facility] Past Medical History Medical History (Updated 07/26/25 @ 09:45 by ELIZA Angel) HIV (human immunodeficiency virus infection) HIV disease Methamphetamine abuse Social History Social History Household Members: None Household Members Other:: homeless for 1 month, staying with grandma Housing: Homeless Do you presently have visiting nurse or other home services: No Alcohol intake: current Alcohol intake frequency: holidays/special occasions only Comment: 1:1 Patient Tobacco Use Status: Current everyday Tobacco user Tobacco use type: Smokeless Tobacco Second Hand Smoke Exposure: No Substance Use Type: Amphetamines Advance Directives: No Advance Directives Information Provided: Yes Do you have a plan to hurt others: No Plan service: No Physical Exam ED Vital Signs: Vital Signs - 24 hr 07/24/25 17:03 Temperature 98.5 F Pulse Rate 117 H Respiratory Rate 16 Blood Pressure 127/77 Pulse Oximetry 99 Oxygen Delivery Method Room Air BMI result Body Mass Index 22.8 Course Course Course Narrative: Medical screening exam performed. Please refer to detailed history, exam, evaluation, and management by primary provider. Patient with recent admission, discharged yesterday. Ordered status post colonoscopy. Diagnosed with proctocolitis. Did not start his antibiotics. ANTON 6:04 p.m., July 24, 2025 patient stating that he is unsure if he was going to wait for his results or to be seen. Patient is concerned about long waits but states that he will return. Extensive discussion with the patient about the importance of having his blood work performed as well as remaining for his evaluation. I expressed that I am concerned for his safety and that he should have further evaluation. Patient acknowledges this and expresses an understandi ng. Patient states that he will remain for his labs. 6:08 p.m. tech notify this provider that patient now refused his blood work and ambulated out of the emergency department after calling a family member. Patient was unable to be redirected. Discharge Plan Discharge Clinical Impression: Abdominal pain Patient Disposition: Left W/O Completing Treatment Prescriptions: No Action Biktarvy 50-200-25 mg Tablet 1 tab PO DAILY 90 Days Qty: 90 0RF cefuroxime axetil 500 mg tablet 500 mg PO BID 28 Days Qty: 56 0RF metronidazole 500 mg tablet 500 mg PO BID 28 Days Qty: 56 0RF hydrocortisone [Proctozone-HC] 2.5 % Cream With Perineal Applicator 1 appl [place] BID 30 Days Qty: 30 0RF divalproex 500 mg tablet,delayed release (DR/EC) 1,000 mg PO BID 90 Days Qty: 360 0RF Discharge Date/Time: 07/24/25 21:02
[2025-07-24 17:03] VITALS: BP 127/77; PULSE 117; RESP 16; TEMP 36.9; O2SAT 99; BMI 22.8
--- NOTE | 2025-07-24 18:09 | MHC.EDTECH ---
Patient left and did not want to wait for hours just to be seen, provider and nurse aware
--- NOTE | 2025-07-24 20:46 | PC.NURSE ---
called patient at 1930, n/a. LWCT
--- OUTSIDE RECORDS SUMMARY | 2025-07-24 21:00 | XMS_ITS | Clinical Summary ---
Author Organization [facility] Address [address] [place] [phone] Phone Care Team Providers Care Financial Dealers Name Role Phone Real Hightower MD Primary Care Provider [phone] Allergies No known active allergies Medications No known medications Active Problems Problem Noted Date Diagnosed Date Attention deficit disorder of adult with hyperac tivity 09/24/2024 Cocaine use disorder ([facility] V[facility], [facility] V28) 09/24/2024 Colitis 09/24/2024 HIV disease ([facility] V[facility], [facility] V28) STD (sexually transmitted disease) 09/24/2024 Depression 09/24/2024 Psychiatric problem 07/10/2024 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[facility] V[facility], [facility] V28) 07/2022 PTSD (post-traumatic stress disorder) 11/24/2021 Schizophrenia ([facility] V[facility], [facility] V28) 022 GI bleed 11/17/2021 Rectal bleeding 11/17/2021 Overview (09/24/2024): Added automatically from request for surgery [id number] HIV (human immunodeficiency virus infection) ([facility] V[facility], [facility] V28) 10/08/2018 Marijuana use 11/05/2017 Depression Overview (07/21/2024): DX:Depression Marijuana use Overview (07/21/2024): DX:Marijuana use 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[facility] V[facility]) Encounters Date Type Department Care Team Description 06/10/2025 7:37 PM EDT - 06/10/2025 8:[address] [facility] Emergency [address] [place] [phone] Discharge Disposition: Home or Self Care 05/31/2025 11:00 AM EDT Consult [facility] [address] [place] [phone] Julianne Hillman MD HIV disease ([facility] V24, [facility] V28) (Primary Dx); Seizure cerebral ([facility] V24, [facility] V28); Attention deficit disorder of adult with hyperactivity; Psychiatric problem; 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[facility] V24, [facility] V28) 05/11/2025 1:00 PM EDT Office Visit [facility] Hematology Oncology [address] [place] [address] Keke Fish PA Normocytic anemia [...] use 11/05/2017 DX:Marijuana use Depression DX:Depression Seizures ([facility] V24, [facility] V28) Family History Medical History Relation [...] Description 09/30/2025 10:30 AM EST Office Visit [facility] [address] [place] [address] Julianne Hillman MD [address] [place] [address] Health Maintenance Due Date Last Done Comments [...] Date/Time Associated Diagnosis Comments EXTERNAL CT REPORT 07/16/[address] REPORT 07/16/[address] REPORT 06/09/2025 HEPATITIS C ANTIBODY Routine 01/06/2025 12:49 PM EDT Seizures (CMS/HCC V24, CMS/HCC V28) Gall stones PTSD (post-traumatic stress disorder) Preventative health care Possible exposure to STD LIPID PANEL WITH REFLEX TO DIRECT LDL Routine 01/06/2025 12:49 PM EDT Seizures (CMS/HCC V24, CMS/HCC V28) Gall stones PTSD (post-traumatic stress disorder) Preventative health care Possible exposure to STD from Last 3 Months or Most Recently Relevant to Health Maintenance Results * External CT Report (07/16/2025) Only the most recent of3 resultswithin the time period is included. Anatomical Region Laterality Modality Computed Tomogra phy us Provider [facility] CT PROCEDURES Final Result * (ABNORMAL) Hepatitis C antibody (01/06/2025 12:49 PM EDT) Pathologist [facility] Hepatitis C Antibody Positive (A) Negative LAB CHEMISTRY METHOD 01/06/2025 4:52 PM EDT [facility] Comment:If confirmation of t his positive HCV Ab screening test is needed, please redraw and order HCV Viral Load. Note--> This test may not be added on due to different specimen requirements. Blood Venous blood specimen / Unknown Venipuncture / Unknown 01/06/2025 12:49 PM EDT 01/06/2025 1:47 PM EDT Real Hightower MD LAB BLOOD ORDERABLES Final Resul t [facility] [address] [place] [address], [place] [phone] * (ABNORMAL) Lipid panel with reflex to direct LDL (01/06/2025 12:49 PM EDT) [facility] Cholesterol 107 0 - 200 mg/dL LAB CHEMISTRY METHOD 01/06/2025 3:08 PM EDT [facility] Triglycerides 90 0 - 150 mg/dL LAB CHEMISTRY METHOD 01/06/2025 3:08 PM EDT [facility] HDL 36(L) >=40 mg/dL LAB CHEMISTRY METHOD 01/06/2025 3:08 PM EDT [facility] LDL Calculated 53 0 - 100 mg/dL LAB CHEMISTRY METHOD 01/06/2025 3:08 PM EDT [facility] VLDL Cholesterol Jacob 18 mg/dL LAB CHEMISTRY METHOD 01/06/2025 3:08 PM EDT [facility] Non HDL Chol. (LDL+VLDL) 71 <145 mg/dL LAB CHEMISTRY METHOD 01/06/2025 3:08 PM EDT [facility] ([facility]) [facility] Chol/HDL Ratio 3.0 0.0 - 4.4 LAB CHEMISTRY METHOD 01/06/2025 3:08 PM EDT [facility] ([facility]) [facility] Blood Venous blood specimen / Unknown Venipuncture / Unknown 01/06/2025 12:49 PM EDT 01/06/2025 1:47 PM EDT us Real Hightower MD LAB BLOOD ORDERABLES Final Resul t [facility] ([facility]) [facility] [address] [place] [address], from Last 3 Months or Most Recently Relevant to Health Maintenance Insurance [facility] HE[facility]AN [facility] PROGRESSIVE Care Teams Financial Dealers Relationship Specialty Start Date End Date Real Hightower MD [address] [address] PCP - General 02/22/23
--- OUTSIDE RECORDS SUMMARY | 2025-07-24 21:00 | XMS_ITS | Clinical Summary ---
Author Organization [employer] Address [address] [place] [address] Care Team Providers Care Supervisor Toy Parts Former Name Role Phone Unavailable Primary Care Provider [...]
--- OUTSIDE RECORDS SUMMARY | 2025-07-24 21:00 | XMS_ITS | Clinical Summary ---
Author Organization [facility] Address [address] [address] Phone Care Team Providers Care Career Resource Technician Name Role Phone Unknown, Unknown Primary Care [...] PARTNERSHIP ACO ACO PARTNERSHIP ACO Care Teams Career Resource Technician Relationship Specialty Start Date End Date Unknown, Unknown, PCP - General 07/09/24 Additional Source Comments The information contained in this document represents components of the legal health record. It is not the complete legal health record.[facility]
--- OUTSIDE RECORDS SUMMARY | 2025-07-24 21:00 | XMS_ITS | Encounter Summary ---
Author Organization [employer] Address [address] [facility] [address] [place] [address] Care Team Providers Care Insurance Verify Rep Name Role Phone Unavailable Primary Care Provider [...]
--- OUTSIDE RECORDS SUMMARY | 2025-07-24 21:00 | XMS_ITS | Clinical Summary ---
Author Organization [facility] Address [address] [place] [id number] Care Team Providers Care Alterations Expert Name Role Phone Provider, Conversion MD Primary [...] (11/17/2021): Added automatically from request for surgery [id number] GI bleed 11/17/2021 Social History Tobacco Use [...] Required) Completed Medical Devices Implanted Type Area Passenger Car Inspector Device Identifier Shelf Expiration Date Model / Serial / Lot Resolution Ultra Clip Implanted:Qty: 2 on 11/19/2021 by Abril Machado MD at [facility] [employer] [id number] / / Description:Not an implant. Charging purposes [...] PM EST Comment:Performed by FDA elham roved [employer], [place] Aptima TMA. Linear range is 30 to 10,000,000 copies/mL. HIV Genotyping is not recommended for viral loads below 2,000 copies/mL. Not FDA approved to diagnose HIV infection. Blood specimen (specimen) Plasma specimen / Unknown 11/18/2021 12:15 PM EST 11/18/2021 12:55 PM EST Shani Blankenship MD LAB BLOOD ORDERABLES Final Resu lt [facility] [address] [address] from Last 3 Months or Most Recently Relevant to Health Maintenance Insurance Advance Directives * Full Code (Latest Code Status on File) Date Activated Date Inactivated Comments 11/17/2021 12:47 PM Healthcare Agents on File Name Relationship Healthcare Agent Relationship Communication Divya Cramer Adult sibling 4. Next of Kin (Spouse, Adult Child, Parent, Adult Sibling, Grandparent) Care Teams Alterations Expert Relationship Specialty Start Date End Date Provider, Conversion, PCP - General 11/17/21
== END 2025-07-24 21:02 | disposition left against medical advice (07) ==
PROVIDERS: Emergency Provider Emergency Medicine; PCP Internal Medicine
DX: R10.9 Unspecified abdominal pain (principal); Z21 Asymptomatic human immunodeficiency virus [HIV] infection status
CPT/HCPCS: 74019; 99282; 99283

== ENCOUNTER → 2025-07-24 17:05 | Outpatient (BNV) | payer OTHER, SELFPAY | PROVIDERS: PCP Internal Medicine; Visit Provider Radiology Diagnostic Radiology | DX: R10.9 Unspecified abdominal pain (principal) | CPT/HCPCS: 74019 ==

== ENCOUNTER 2025-07-25 00:21 | Emergency (ER) | payer OTHER, SELFPAY ==
[2025-07-25 00:29] VITALS: BP 112/70; BP 126/67; PULSE 100; PULSE 109; RESP 20; TEMP 37.3; O2SAT 97; BMI 22.8
[2025-07-25 01:11] VITALS: BP 118/79; PULSE 101; RESP 22; TEMP 37.1; O2SAT 100
--- OUTSIDE RECORDS SUMMARY | 2025-07-25 01:34 | XMS_ITS | Encounter Summary ---
Author Organization [facility] Address [address] [place] [address] Care Team Providers Care Pitching Coach Name Role Phone Real Hightower MD Primary Care Provider [phone] Encounter Details Date Type Department Care Team Description 06/30/2024 Orders Only Medical Records [address] [place] [address] Keenan Colbert Social History Tobacco Use Types [...] on filedocumented in this encounter Care Teams Pitching Coach Relationship Specialty Start Date End Date Real Hightower MD PCP - General Internal Medicine 02/22/23 documented as of this encounter
--- OUTSIDE RECORDS SUMMARY | 2025-07-25 01:34 | XMS_ITS | Encounter Summary ---
Author Organization [facility] Address [address] [place] [address] Care Team Providers Care Claims Assistant Name Role Phone Real Hightower MD Primary Care Provider [phone] Encounter Details Date Type Department Care Team Description 06/27/2024 Hospital Medical Records [address] [place] [address] [facility] Social History Tobacco Use Types [...] on filedocumented in this encounter Care Teams Claims Assistant Relationship Specialty Start Date End Date Real Hightower MD PCP - General Internal Medicine 02/22/23 documented as of this encounter
--- OUTSIDE RECORDS SUMMARY | 2025-07-25 01:34 | XMS_ITS | Encounter Summary ---
Author Organization [facility] Address [address] [place] [address] Care Team Providers Care Lace Weaver Name Role Phone Irais Gold MD Primary Care Provider Unala Real Conrad MD Primary Care Provider [phone] Encounter Details Date Type Department Care Team Description 10/16/[address] [address] Irais Gold MD Social History Tobacco Use [...] on filedocumented in this encounter Care Teams Lace Weaver Relationship Specialty Start Date End Date Irais Gold MD PCP - General Internal Medicine 10/28/17 02/21/23 Real Hightower MD PCP - General Internal Medicine 02/22/23 documented as of this encounter
--- OUTSIDE RECORDS SUMMARY | 2025-07-25 01:34 | XMS_ITS | Encounter Summary ---
Author Organization [facility] Address [address] [place] [address] Care Team Providers Care Asphalt Tile Floor Layer Name Role Phone Real Hightower MD Primary Care Provider [phone] Encounter Details Date Type Department Care Team Description 07/01/2024 Orders Only Medical Records [address] [place] [address] Keenan Colbert Social History Tobacco Use Types [...] Associated Diagnosis Comments OUTSIDE PLAIN FILM Routine 07/01/2024 OUTSIDE PATHOLOGY Routine 06/27/2024 documented in this encounter Results * OUTSIDE PLAIN FILM (07/01/2024) Keenan Colbert RADIOLOGY * OUTSIDE PATHOLOGY (06/27/2024) Jasmyn Ryder MD OUTSIDE LAB documented in this encounter Visit Diagnoses Not on filedocumented in this encounter Care Teams Asphalt Tile Floor Layer Relationship Specialty Start Date End Date Real Hightower MD PCP - General Internal Medicine 02/22/23 documented as of this encounter
[2025-07-25 01:43] LABS: MANUAL DIFF FLAG NO
[2025-07-25 01:47] LABS: Hematocrit 34.3 % (42.0-52.0); Hemoglobin 11.1 g/dl (14.0-18.0); Imm Gran Abs Auto 0.03 X10*3/uL (0.00-0.03); Imm Gran Pct Auto 0.4 % (0.0-0.4); Lymphocytes Absolute Auto 1.6 X10*3/uL (1.2-4.9); Mean Corpuscular HGB Conc 32.4 g/dl (31.0-36.0); Mean Corpuscular Hemoglobin 23.3 pg (27.0-33.0); Mean Corpuscular Volume 72.1 fL (80.0-98.0); NRBC Abs Auto 0.000 X10*3/uL (0.0-0.012); NRBC Pct Auto 0.0 /100WBC (0.0-0.2); Platelet Count 368 X10*3/uL (160-400); Red Blood Count 4.76 X10*6/uL (4.60-5.80); White Blood Count 8.4 X10*3/uL (4.8-10.8)
[2025-07-25 01:59] LABS: Alanine Aminotransferase 187 U/L (0-40); Albumin Level 3.2 g/dL (3.5-5.0); Alkaline Phosphatase 286 U/L (39-117); Anion Gap 12 (12-20); Aspartate Amino Transferase 58 U/L (5-37); Blood Urea Nitrogen 12 mg/dL (9-16); Calcium 8.5 mg/dL (8.4-10.2); Carbon Dioxide 24 mmol/L (22-29); Chloride 102 mmol/L (96-108); Creatinine Clr Calc Pharmacy 152.5; Estimated Glomerular Filt Rate > 60; Potassium 3.9 mmol/L (3.3-5.1); Sodium 134 mmol/L (135-145); Total Protein 7.0 g/dL (6.5-8.0)
--- NOTE | 2025-07-25 02:59 | PC.NURSE ---
pt has made multiple requests for food/drinks. educated should wait for provider eval d/t sx, agreeable.
--- NOTE | 2025-07-25 03:29 | PC.NURSE ---
Pt continuing to ask for snacks and beverages, pt educated on why he is NPO status at this time.
--- NOTE | 2025-07-25 04:40 | ED.GENADULT ---
HPI - General Adult General Chief complaint: General Medical Stated complaint: BLOODY BM/URINE,SEEN RECENTLY PER EMS Time Seen by Provider: 07/25/25 04:37 Source: patient Mode of arrival: ambulatory Limitations: no limitations History of Present Illness ED Provider: Rajeev KAY HPI narrative: The patient is a 25-year-old male presenting to the ED for evaluation of ongoing abdominal pain and bloody stools. The patient was seen at this facility on 07/22 for similar symptoms, and admitted for proctocolitis. The patient received IV ceftriaxone and Flagyl. On 07/23 the patient underwent a colonoscopy which showed edema, scattered aphthous ulcers, and moderate hemorrhoids. Biopsies were obtained. The patient had no further bleeding and labs were stable. Patient was started on rectal hydrocortisone, Biktarvy for HIV, and discharged with prescriptions for Ceftin and Flagyl. Per chart review the patient was being planned for discharge but eloped prior to completion of discharge. The patient's elopement occurred at approximately 10:00 on 07/24. The patient then returned by ambulance to this ED at approximately 17:00 on 07/24. The patient reports he was staying with his sister but was no longer able stay with the sister at which time he called the ambulance to return to the ED. Patient was ordered for labs which he subsequently refused and then left the emergency department. The patient returned to the emergency department once again by ambulance at 00:30 this morning 07/25 requesting re-evaluation for his symptoms. The patient reports he has not picked up any of his prescribed medications. The patient arrives to the ED normotensive and afebrile. Related Data Previous Rx's ?Medication ?Instructions ?Recorded bictegravir 50 mg-emtricitabine 1 tab PO DAILY 90 days #90 tabs 07/24/25 200 mg-tenofovir alafenam 25 mg tablet (Biktarvy) cefuroxime axetil 500 mg tablet 500 mg PO BID 28 days #56 tabs 07/24/25 divalproex 500 mg tablet,delayed 1,000 mg (2 x 500 mg) PO BID 90 07/24/25 release days #360 tabs hydrocortisone 2.5 % topical cream 1 appl RI BID 30 days #30 grams 07/24/25 with perineal applicator (Proctozone-HC) metronidazole 500 mg tablet 500 mg PO BID 28 days #56 tabs 07/24/25 Allergies Allergy/AdvReac Type Severity Reaction Status Date / Time No Known Allergies Allergy Verified 07/25/25 00:31 Review of Systems Review of Systems: Yes all other systems are reviewed and are negative PMFSH Past Medical History Medical History (Updated 07/25/25 @ 05:32 by Rajeev Gordon PA-C) HIV (human immunodeficiency virus infection) HIV disease Methamphetamine abuse Social History Social History Household Members: None Household Members Other:: homeless for 1 month, staying with grandma Housing: Homeless Do you presently have visiting nurse or other home services: No Alcohol intake: current Alcohol intake frequency: holidays/special occasions only Comment: 1:1 Patient Tobacco Use Status: Current everyday Tobacco user Tobacco use type: Smokeless Tobacco Second Hand Smoke Exposure: No Substance Use Type: Amphetamines Advance Directives: No Advance Directives Information Provided: Yes Do you have a plan to hurt others: No Plan service: No Physical Exam ED Vital Signs: Vital Signs - 24 hr 07/25/25 00:29 07/25/25 01:11 Temperature 99.1 F 98.7 F Pulse Rate 109 H 101 H Respiratory Rate 20 22 H Blood Pressure 126/67 118/79 Pulse Oximetry 97 100 Oxygen Delivery Method Room Air Room Air BMI result Body Mass Index 22.8 CONSTITUTIONAL: The patient appears non-toxic, well nourished and in no acute distress. Vital signs as documented. HEAD: Atraumatic, normocephalic. EYES: EOMs grossly intact, pupils equal, conjunctiva clear, no exudate. ENT: Nares patent, no discharge. Airway patent, no audible stridor, visible mucosa is pink and moist without noted lesions. NECK: Trachea is midline, no obvious masses or gross abnormalities. CHEST: Symmetric movement, normal appearance. LUNGS: LS present and CTAB, no w/r/r. Non-labored work of breathing. CARDIAC: Regular Rhythm, S1/S2 appreciated, no murmurs, rubs or gallops. ABDOMEN: Abdomen soft and non-tender x4 quadrants, no palpable masses or organomegaly. : Deferred. EXTREMITIES: Normal tone, moves all extremities spontaneously without reported pain. No obvious acute injury or deformity noted. NEURO: Alert and oriented x3, CN II-XII appear grossly intact. Cerebellar Functioning grossly intact. No obvious sensory or motor deficits. Speech clear and appropriate. PSYCH: normal affect, appropriate eye contact, fluid speech, with appropriate response to questioning. No reported suicidality or homicidality. SKIN: Warm, dry, color appropriate, normal turgor. No rashes noted. Medical Decision Making Medical Decision Making [facility] Narrative: 4:51 AM 07/25/2025 (Manish KAY): The patient is a 25-year-old male presenting to the ED for evaluation of ongoing abdominal pain and bloody stools. The patient was seen at this facility on 07/22 for similar symptoms, and admitted for proctocolitis. The patient received IV ceftriaxone and Flagyl. On 07/23 the patient underwent a colonoscopy which showed edema, scattered aphthous ulcers, and moderate hemorrhoids. Biopsies were obtained. The patient had no further bleeding and labs were stable. Patient was started on rectal hydrocortisone, Biktarvy for HIV, and discharged with prescriptions for Ceftin and Flagyl. Per chart review the patient was being planned for discharge but eloped prior to completion of discharge. The patient's elopement occurred at approximately 10:00 on 07/24. The patient then returned by ambulance to this ED at approximately 17:00 on 07/24. The patient reports he was staying with his sister but was no longer able stay with the sister at which time he called the ambulance to return to the ED. Patient was ordered for labs which he subsequently refused and then left the emergency department. The patient returned to the emergency department once again by ambulance at 00:30 this morning 07/25 requesting re-evaluation for his symptoms. The patient reports he has not picked up any of his prescribed medications. The patient arrives to the ED normotensive and afebrile. The patient's exam shows mild suprapubic tenderness, without rebound, however patient is resting comfortably in no evidence of distress. The patient's laboratory evaluation shows no leukocytosis, no significant anemia or significant change in H&H from previous, no electrolyte abnormality, or VINI. The patient was informed of his reassuring labs and the prescriptions waiting at his pharmacy. Patient was ordered for a dose of his antibiotics which he had not yet filled, and was being prepped for discharge, however upon further review of the patient's recent laboratory evaluations, the patient was noted to have an acute change in his LFTs. The patient's T bili is now 2.3, alk phos of 286, with transaminitis at 58 and 187. The exact cause of the patient's abnormal LFTs not entirely clear, despite the lack of any right upper quadrant tenderness on exam, given the patient's complaints of ongoing abdominal pain and new onset abnormal LFTs, the patient's plan for discharge was canceled and patient was recommended to stay for repeat imaging. Upon being recommended for repeat imaging the patient began demanding juice and food, patient was advised he should not eat or drink while awaiting repeat imaging as his liver function tests were abnormal. Patient became agitated at the refusal of drink and food, became verbally abusive towards staff, and eloped from the ED prior any AMA risk discussion. The patient's recurrent visits with recurrent non-compliance, and behavior at time of elopement is highly concerning for malingering with secondary gain of temporary housing. Admission/Observation Consideration of admission/observation: Escalation of care including admission/observation considered Lab Data MDM Lab Attestation statement: I reviewed the patient's lab results. 07/25/25 01:39 07/25/25 01:39 Labs: Lab Results 07/25/25 Range/Units 01:39 WBC 8.4 (4.8-10.8) X10*3/uL RBC 4.76 (4.60-5.80) X10*6/uL Hgb 11.1 L (14.0-18.0) g/dl Hct 34.3 L (42.0-52.0) % MCV 72.1 L (80.0-98.0) fL MCH 23.3 L (27.0-33.0) pg MCHC 32.4 (31.0-36.0) g/dl RDW 17.5 H (11.0-16.0) % Plt Count 368 (160-400) X10*3/uL MPV 8.6 L (9.4-12.4) fL Immature Gran % (Auto) 0.4 (0.0-0.4) % Neut % (Auto) 70.9 (45-73) % Lymph % (Auto) 19.1 L (20-40) % [place] % (Auto) 8.7 (2-11) % Eos % (Auto) 0.7 (0-4) % Baso % (Auto) 0.2 (0-2) % Lymph # (Auto) 1.6 (1.2-4.9) X10*3/uL [place] # (Auto) 0.7 (0.1-1.2) X10*3/uL Eos # (Auto) 0.1 (0.0-0.4) X10*3/uL Baso # (Auto) 0.0 (0.0-0.2) X10*3/uL Abs Immat Gran (auto) 0.03 (0.00-0.03) X10*3/uL Absolute Neuts (auto) 6.0 (2.0-8.3) x10*3/uL Absolute Nucleated RBC 0.000 (0.0-0.012) X10*3/uL Nucleated RBC % (auto) 0.0 (0.0-0.2) /100WBC Sodium 134 L (135-145) mmol/L Potassium 3.9 (3.3-5.1) mmol/L Chloride 102 (96-108) mmol/L Carbon Dioxide 24 (22-29) mmol/L Anion Gap 12 (12-20) BUN 12 (9-16) mg/dL Creatinine 0.70 (0.5-1.4) mg/dL Estim Creat Clear Calc 152.5 Estimated GFR > 60 Random Glucose 120 H (60-115) mg/dL Calcium 8.5 (8.4-10.2) mg/dL Total Bilirubin 2.3 H (0.0-1.0) mg/dL AST 58 H (5-37) U/L ALT 187 H (0-40) U/L Alkaline Phosphatase 286 H (39-117) U/L Total Protein 7.0 (6.5-8.0) g/dL Albumin 3.2 L (3.5-5.0) g/dL External Record Review External record reviewed: Inpatient record, Outpatient record and Prior outpatient labs Prescription Management I considered prescription management with: Pain Medication Discharge Plan Discharge Clinical Impression: Proctocolitis, Malingering Patient Disposition: Elopement Additional Instructions: Thank you for choosing [facility]'s Emergency Department for your care today. It was recommended that you remain in the ED for [Diagnostics/Treatment/Observation]. You have declined this recommended care plan and instead are choosing to leave the ED against medical advice. You have stated your understanding that by not completing your recommended evaluation or treatment we are unable to fully exclude all potential emergent processes which may be contributing to your symptoms. Failure to exclude dangerous causes of your symptoms could result in worsening pain, decreased quality of life, and . Please understand that your decision to leave against medical advice today does not preclude you from returning to the ED for re-evaluation if you change your mind at any time. It is extremely important that you follow up with your primary care physician for re-evaluation, additional management of your symptoms, and continued preventative care. If you do not have a primary care physician, please call the [facility] at [phone] to establish a new primary care physician. While waiting to establish your new primary care physician, you can call our [facility] at [phone] for non-emergency needs. Please return to the emergency department if you change your mind regarding her care, develop a severe or sudden change in your symptoms, a fever over 100.4 that does not improve with Tylenol or Ibuprofen, recurrent vomiting, or any other new or worsening symptoms or concerns. Thank you for choosing [facility]'s Emergency Department for your care today. Thankfully your laboratory evaluation, vital signs, and exam today are reassuring. Your symptoms are consistent with the your known diagnosis of proctocolitis. Thankfully your blood counts have remained stable and did not require transfusion. At this time there is no indication for admission to the hospital or continued ED observation, and it is safe to discharge you home. You were prescribed HIV medication, antibiotics, and rectal steroids during your recent admission to treat your symptoms. We gave you another dose of these medications while you are in the ED. The prescriptions are waiting for you at the [facility] as you requested. Please fill these medications and take them as directed. Failure to fill and take these medications as directed could result in worsening pain, worsening bleeding, and significant medical complications. You should take alternating (staggered) doses of ibuprofen 600mg and Tylenol 1000mg every 4 hours as needed for any additional pain. Please stay well hydrated and get plenty of rest. Please follow up with your primary care physician for re-evaluation, additional management of your symptoms, and continued preventative care. If you do not have a primary care physician, please call the [facility] at [phone] to establish a new primary care physician. While waiting to establish your new primary care physician, you can call our [facility] at [phone] for non-emergency needs. Please return to the emergency department if you develop a severe or sudden change in your symptoms, a fever over 100.4 that does not improve with Tylenol or Ibuprofen, recurrent vomiting, or any other new or worsening symptoms or concerns. Prescriptions: No Action Biktarvy 50-200-25 mg Tablet 1 tab PO DAILY 90 Days Qty: 90 0RF cefuroxime axetil 500 mg tablet 500 mg PO BID 28 Days Qty: 56 0RF metronidazole 500 mg tablet 500 mg PO BID 28 Days Qty: 56 0RF hydrocortisone [Proctozone-HC] 2.5 % Cream With Perineal Applicator 1 appl RI BID 30 Days Qty: 30 0RF divalproex 500 mg tablet,delayed release (DR/EC) 1,000 mg PO BID 90 Days Qty: 360 0RF Referrals: Real Hightower MD [Primary Care Provider, Internal Medicine] Clinical Impression: Proctocolitis Print Language: Macedonian
[2025-07-25 05:57] VITALS: BP 118/79; PULSE 101; RESP 22; TEMP 37.1; O2SAT 100
== END 2025-07-25 05:59 | disposition left against medical advice (07) ==
PROVIDERS: Emergency Provider Emergency Medicine; PCP Internal Medicine
DX: K51.30 Ulcerative (chronic) rectosigmoiditis without complications (principal); R31.9 Hematuria, unspecified; F17.210 Nicotine dependence, cigarettes, uncomplicated; Z76.5 Malingerer [conscious simulation]; Z79.899 Other long term (current) drug therapy
CPT/HCPCS: 36415; 80053; 85025; 99283; 99284

== ENCOUNTER 2025-08-03 17:08 | Emergency (ER) | payer OTHER, SELFPAY ==
--- OUTSIDE RECORDS SUMMARY | 2025-07-02 09:00 | XMS_ITS ---
Author Organization [facility] Address [address] [place] [address] Care Team Providers Care Racking Machine Operator Name Role Phone Group Angelito Primary Care Provider Hortencia Gordillo REASON FOR VISIT Housing Encounters Encounter Location Date Provider Diagnosis [facility] [address] [place] [phone] 07/02/2025 Hortencia Gordillo Plan Of Treatment No Information Progress Notes * Everardo CRAMERDOB:[birth year] (25 yo M)Acc No.[id number]:07/02/2025 Case Management Patient: Everardo CHAPA Provider: Shavon Gordillo :2000 A ge:25 Y S ex:Male Date:07/02/2025 Address:[address] [place], [place] [id number] Pcp:Group Monica Hurst Subjective: * Chief Complaints: * 1 . Housing. * Medical History: Objective: Assessment: Plan: * Treatment: * Images: Billing Information: * Visit Code: * Procedure Codes: Care Plan Details* * Electronic signature of Jim Gordillo on 08/04/2025 at 01:43 PM EST Sign off status: Pending * Provider: Shavon Gordillo Date: Generated for Wilner young/Annie/Earline on: 10/04/2024 01:43 PM EST
[2025-08-03] VITALS (10 sets, daily range): BP systolic 109–175; BP diastolic 66–118; PULSE 82–116; RESP 15–30; TEMP 36–36.4; O2SAT 98–100; BMI 22.0
--- NOTE | ~2025-08-03 | CT_ITS ---
CLINICAL HISTORY: AMS CT abdomen and pelvis with contrast Comparison: CT/REG/SR - CT ABDOMEN PELVIS W IV CON - 07/21/25 23:43 EST Findings: No consolidation or effusion. Bilateral basilar opacities suggestive of atelectasis. The gallbladder is distended. No definite gallstones. Possible slight pericholecystic fluid. Intrahepatic biliary ductal dilatation and common bile duct is dilated up to 8 mm. No definite choledocholithiasis. Intrahepatic periportal edema. Anterior subcapsular 8 mm round hypodense lesion in the liver suggestive of a small cyst. Spleen and pancreas within normal limits. Adrenal glands are normal. Stable 4 mm left renal hypodense lesion likely a cyst. Improvement of enhancement in the right kidney with subtle small areas of hypoenhancing remaining suggestive of improvement but not resolution of pyelonephritis. No ureteral stones and no hydronephrosis or hydroureter. No bowel obstruction, pneumoperitoneum, or pneumatosis. Interval resolution of wall thickening in rectum and sigmoid colon. No free fluid or definite loculated fluid collection. Appendix not identified. Pelvic contents unremarkable. Abdominal aorta normal in size. The bones are intact. IMPRESSION: 1. Distended gallbladder with possible slight pericholecystic fluid with intrahepatic biliary ductal prominence and common bile duct dilated to 8 mm. No definite cholelithiasis or choledocholithiasis. Correlate with LFTs. If clinically indicated and if acute cholecystitis is clinically suspected follow-up ultrasound should be obtained. 2. Improved right pyelonephritis. 3. Bilateral basilar opacities likely atelectasis. This document has been electronically signed by: Shani Colindres MD on 08/03/2025 22:49:57
--- NOTE | ~2025-08-03 | XR_ITS ---
CLINICAL HISTORY: ET placement confirmation 1 view chest x-ray Comparison: CR - XR CHEST 1V - 05/01/25 05:34 EDT Findings: Endotracheal tube with the tip approximately 1.5 cm proximal to the ming. Enteric tube with the tip overlying midthoracic esophagus. Heart size is normal. No consolidation, significant pleural effusion or pneumothorax. Mildly elevated right hemidiaphragm. No acute fracture. IMPRESSION: 1. No acute findings. 2. Endotracheal tube with tip approximately 1.5 cm proximal to the ming. Tube can be retracted by 2 cm for ideal position. 3. Enteric tube with tip overlying midthoracic esophagus and approximately 25 cm advancement is recommended. This document has been electronically signed by: Shani Colindres MD on 08/03/2025 21:48:55
--- NOTE | ~2025-08-03 | CT_ITS ---
CLINICAL HISTORY: AMS CT head without contrast Comparison: CT/REG/SR - CT HEAD/BRAIN WO IV CON - 05/27/25 23:01 EDT Findings: No intra-axial mass, midline shift, hydrocephalus, or acute hemorrhage. No significant atrophy-like change or white matter disease. Left maxillary sinus mucous retention cyst/polyp and mild mucosal thickening. Otherwise visualized sinuses and mastoid air cells are clear bilaterally. The orbits are unremarkable. There is no acute skull fracture. IMPRESSION: 1. No acute intracranial findings. This document has been electronically signed by: Shani Colindres MD on 08/03/2025 22:37:29
--- NOTE | 2025-08-03 17:14 | ED_ITS ---
HPI - General Adult General Chief complaint: Abdominal Pain Stated complaint: Ab pain 06/25 HR 95 Time Seen by Provider: 08/03/25 17:14 Source: patient and EMS Mode of arrival: EMS Limitations: no limitations History of Present Illness ED Provider: Wanda Smith PA-C HPI narrative: Patient is a 25 year old assigned male at with a history of HIV - non compliant on medications, proctocolitis with recent admission, chronic abdominal pain, seizures (unclear if epileptic vs. PNES) presenting to the emergency department today with abdominal pain. Patient states that he has nowhere to stay and he is having significant abdominal pain that is not improving. Patient denies any other complaints at this time. Related Data Previous Rx's ?Medication ?Instructions ?Recorded bictegravir 50 mg-emtricitabine 1 tab PO DAILY 90 days #90 tabs 07/24/25 200 mg-tenofovir alafenam 25 mg tablet (Biktarvy) cefuroxime axetil 500 mg tablet 500 mg PO BID 28 days #56 tabs 07/24/25 divalproex 500 mg tablet,delayed 1,000 mg (2 x 500 mg) PO BID 90 07/24/25 release days #360 tabs hydrocortisone 2.5 % topical cream 1 appl NE BID 30 da ys #30 grams 07/24/25 with perineal applicator (Proctozone-HC) metronidazole 500 mg tablet 500 mg PO BID 28 days #56 tabs 07/24/25 Allergies Allergy/AdvReac Type Severity Reaction Status Date / Time No Known Allergies Allergy Verified 08/03/25 17:48 Review of Systems 2 Constitutional: Constitutional: Reports as per HPI Eyes: Eyes: Reports as per HPI ENT: Reports as per HPI Cardiovascular: Cardiovascular: Reports as per HPI Respiratory: Respiratory: Reports as per HPI Gastrointestinal: Gastrointestinal: Reports as per HPI Genitourinary: Genitourinary: Reports as per HPI Musculoskeletal: Musculoskeletal: Reports as per HPI Integumentary/Breasts: Skin/Breast: Reports as per HPI Neurologic: Reports as per HPI Psychiatric: Psychiatric: Reports as per HPI Endocrine: Endocrine: Reports as per HPI Hematologic/Lymphatic: Hematologic/Lymphatic: Reports as per HPI Allergic/Immunologic: Allergic/Immunologic: Reports as per HPI PMF Past Medical History Attestation statement: The following information was validated with the patient. Source: old records reviewed and nursing notes reviewed Medical History HIV (human immunodeficiency virus infection) HIV disease Methamphetamine abuse Social History Social History Household Members: None Household Members Other:: homeless for 1 month, staying with grandwv Housing: Homeless Do you presently have visiting nurse or other home services: No Alcohol intake: current Alcohol intake frequency: holidays/special occasions only Comment: 1:1 Patient Tobacco Use Status: Current everyday Tobacco user Tobacco use type: Smokeless Tobacco Second Hand Smoke Exposure: No Substance Use Type: Amphetamines service: No Physical Exam ED Vital Signs: Vital Signs - 24 hr 08/03/25 17:46 08/03/25 17:49 08/03/25 19:26 Temperature 97.6 F 97.6 F 96.8 F Pulse Rate 116 H 116 H 97 Respiratory Rate 15 15 22 H Blood Pressure 164/98 H Pulse Oximetry 100 100 98 Oxygen Delivery Method Room Air Room Air Room Air 08/03/25 21:19 08/03/25 22:19 08/03/25 22:42 Temperature Pulse Rate 109 H 102 H 85 Respiratory Rate Blood Pressure 153/104 H 175/118 H 168/116 H Pulse Oximetry Oxygen Delivery Method 08/03/25 22:44 08/03/25 23:24 08/03/25 23:36 Temperature Pulse Rate 98 Respiratory Rate 30 H 20 20 Blood Pressure 110/66 Pulse Oximetry 100 Oxygen Delivery Method Mechanical Ventilation 08/03/25 23:37 08/04/25 00:00 08/04/25 00:28 Temperature 0 F L Pulse Rate 96 97 97 Respiratory Rate 20 20 Blood Pressure 109/72 101/78 101/78 Pulse Oximetry 100 99 99 Oxygen Delivery Method Mechanical Ventilation Room Air Mechanical Ventilation BMI result Body Mass Index 22.0 Const General: cooperative, no acute distress, alert and awake Nutritional Appearance: well nourished Orientation/consciousness: patient oriented x3 HENMT Head: Yes normal to inspection and Yes atraumatic Ears: hearing grossly normal bilaterally and external ears normal General nose exam: Normal external nose present, no nasal discharge noted and no epistaxis Face and sinus: Yes normal facial exam, No abrasion and No laceration Mouth: Normal oral and palatal mucosa present, no drooling and no muffled voice Eyes General: appearance normal, both eyes and all related structures Periorbital: periorbital findings normal Eyelids: Yes eyelids normal Conjunctivae: conjunctivae normal Pupils: Equal, round and reactive pupils present EOM: EOMs intact bilaterally Neck Neck: Yes normal visual inspection and Yes full ROM Resp Effort & Inspection: normal respiratory effort and able to speak in complete sentences GI Palpation (GI): Soft to palpation, not firm, Tenderness to palpation present (GI), no guarding and not rigid Neuro General: patient oriented x3, moves all extremities and CN's II-XI intact bilaterally Cranial nerves: Yes Equal, round and reactive pupils present Cognition (Neuro): normal cognition Extrem General: Yes normal to inspection, Yes full ROM and Yes capillary refill normal Psych Appearance: grossly normal Mental Status: mental status grossly normal Affect: normal affect Attitude: cooperative Thought process: Normal thought process present Thought content: Normal thought content present Insight: Good insight present (Psych) Course Reevaluation(s) Reevaluation #1: Kasandra Goode PA-C: Patient received in sign out pending imaging. Briefly BIBA with intractable abdominal pain. Upon my arrival lactic acid returned 3.2, White count with shift. He already rec'd 1L, Keny NELSON added on 2L NS, I ordered 2g IV ceftriaxone, he has rec'd 25 mg IV benadryl 5 mg IV valium, and 1mg dilaudid and pain still remains intractable. COncern for potential messenteric ischemia, will change orders to CTA abd/pelvis. and give 0.5mg/kg with ketamine for analgesia. 2054: 700 mg phenytoin given along with 5 mg suspicion for status epilepticus now present as patient has visibly soiled himself and remains or no posturing state unresponsive to the ketamine we will discontinue the order for CT abdomen and pelvis an attempt to transfer. Called day unfortunately they are closed to transfer for this reason we will attempt [facility] secondary to no neurology. Spoke to [facility], they request patient to be imaged first. GCS: 5; He will be intubated. 2114: Patient was intubating by Dr. Covington. Imaging has been reordered, proprofol ordered to maintain sedation. 2199: [facility] accepted patient to ED Dr. Anderson, will update will imaging reports. Catheter placed, will add on Utox for AMS. 2300: Patient started to seize again, Dr Covington saw at bedside and ordered [address] scan concerning for acute cholecystitis. Repeat lactate pending, UA clean, Utox + benzo and amphetamines. [facility] updated, patient to be transferred. Time: 20:12 Medications Administered Discontinued Medications Generic Name Dose Route Start Last Admin Trade Name Renetta PRN Reason Stop Dose Admin Diazepam 5 mg 08/03/25 18:23 08/03/25 18:37 Diazepam 10 Mg/2 Ml Cartridge IVPUSH 08/03/25 18:24 5 mg STAT STA Administration Diazepam 5 mg 08/03/25 20:49 08/03/25 20:54 Diazepam 10 Mg/2 Ml Cartridge IVPUSH 08/03/25 20:50 5 mg STAT STA Administration Diazepam 10 mg 08/03/25 23:06 08/03/25 23:04 Diazepam 10 Mg/2 Ml Cartridge IVPUSH 08/03/25 23:07 10 mg STAT STA Administration Diphenhydramine HCl 25 mg 08/03/25 17:16 08/03/25 17:51 Diphenhydramine Hcl 50 Mg/Ml Vial IVPUSH 08/03/25 17:17 25 mg ONCE ONE Administration Droperidol 1.25 mg 08/03/25 17:14 08/03/25 17:51 Droperidol 5 Mg/2 Ml Vial IM 08/03/25 17:15 1.25 mg ONCE ONE Administration Etomidate 20 mg 08/03/25 22:03 08/03/25 21:08 Etomidate 20 Mg/10 Ml Vial IVPUSH 08/03/25 22:04 20 mg NOW STA Administration Fentanyl 100 mcg 08/03/25 22:41 08/03/25 22:44 Fentanyl Citrate/Pf 100 Mcg/2 Ml Vial IVPUSH 08/03/25 22:42 100 mcg ONCE ONE Administration Protocol Fentanyl 100 mcg 08/03/25 23:33 08/03/25 23:36 Fentanyl Citrate/Pf 100 Mcg/2 Ml Vial IVPUSH 08/03/25 23:34 100 mcg ONCE ONE Administration Protocol Hydromorphone HCl 1 mg 08/03/25 17:15 08/03/25 17:52 Hydromorphone Hcl 1 Mg/Ml Syringe IVPUSH 08/03/25 17:16 1 mg ONCE ONE Administration Protocol Lactated Ringer's 1,000 mls @ 999 mls/hr 08/03/25 18:15 08/03/25 19:38 Lr IV 08/03/25 19:15 Infused .Q1H1M DEVON Infusion Levetiracetam 1,000 mg in 100 mls @ 400 mls/hr 08/03/25 19:18 08/03/25 19:46 Keppra IV 08/03/25 19:32 Infused ONCE ONE Infusion Potassium Chloride 10 meq in 100 mls @ 100 mls/hr 08/03/25 20:00 08/04/25 00:13 Potassium Chloride/H20 IV 08/03/25 21:59 Not Given Q1H DEVON Sodium Chloride 1,000 mls @ 999 mls/hr 08/03/25 20:15 08/03/25 22:22 Ns IV 08/03/25 22:15 Infused .Q1H1M DEVON Infusion Ceftriaxone Sodium 2 gm/ 50 mls @ 100 mls/hr 08/03/25 20:10 08/04/25 00:00 Sodium Chloride IV 08/03/25 20:39 Infused ONCE ONE Infusion Phenytoin Sodium 700 mg/ 114 mls @ 114 mls/hr 08/03/25 20:52 08/03/25 23:59 Sodium Chloride IV 08/03/25 20:53 Infused ONCE ONE Infusion Propofol 1,000 mg in 100 mls @ 0 mls/hr 08/03/25 21:15 08/04/25 00:00 Diprivan IVCONT Infused .Q0M DEVON Titration Protocol Per Protocol Midazolam HCl 50 mg in 50 mls @ 2 mls/hr 08/03/25 22:45 08/04/25 00:00 Versed IVCONT Infused .Q24H DEVON Infusion Protocol 2 MG/HR Fentanyl 1,000 mcg in 100 mls @ 0 mls/hr 08/03/25 23:45 08/04/25 00:00 Sublimaze/Ns IVCONT Infused .Q0M DEVON Titration Protocol Per Protocol Iohexol 85 ml 08/03/25 21:46 08/03/25 21:51 Iohexol 350 Mg/Ml 100 Ml Infus..Btl IV 08/03/25 21:47 85 ml ONCE ONE Administration Ketamine HCl 34.7 mg 08/03/25 20:17 08/03/25 20:26 Ketamine Hcl/Ns 50 Mg/5 Ml Syringe IVPUSH 08/03/25 20:18 34.7 mg ONCE ONE Administration Ondansetron HCl 4 mg 08/03/25 17:16 08/03/25 17:52 Ondansetron Hcl 4 Mg/2 Ml Vial IVPUSH 08/03/25 17:17 4 mg ONCE ONE Administration Rocuronium Melvin 70 mg 08/03/25 22:15 08/03/25 21:08 Rocuronium Melvin 50 Mg/5 Ml Vial IVPUSH 08/03/25 22:16 70 mg ONCE ONE Administration Medical Decision Making Medical Decision Making [facility] Narrative: Patient is a 25 year old assigned male at with a history of HIV - non compliant on medications, proctocolitis with recent admission, chronic abdominal pain, seizures (unclear if epileptic vs. PNES) presenting to the emergency department today with abdominal pain. Patient's physical exam was as noted in the physical exam portion of this note. Patient's blood work showed a potassium of 3.2, total bili of 2.8, AST of 169, ALT of 169, alk phos of 721, total CK of 107. Patient's urine is pending. Patient's EKG is pending. Patient's CT head and abdomen/pelvis are pending. Patient was given IM Droperidol upon arrival due to his abdominal pain and somewhat agitated affect. Patient then had an IV started and began to intermittently tense his muscles. There was some concern initially that the patient was seizing however - the patient would respond to verbal and painful stimuli, making seizure less likely. Patient was given IV keppra, dilaudid, benadryl, and zofran. Patient continued to have intermittent muscle tensing episodes. Patient was given IV potassium. Patient's lactic acid resulted at 3.5. Patient given 1 liter of LR and 2 liters of NS as well as 2 grams of ceftriaxone. Patient signed out to ELIZA Slaughter pending results and re-evaluation. Kasandra Goode PA-C: I reviewed patient's medical record. In the past, seems that patient has had several episodes of seizure-like activity. Two months ago, patient was in the ICU having similar episodes of seizure-like activity. Per ICU note, patient started shaking, foaming at the mouth, twitching as if he was having a seizure. Excerpt from the [facility] ICU note on 05/28/2025: 2014 the patient who is well known to our service as we had treating him before, has underlying history of HIV who is noncompliant, has a long history of pseudoseizures the setting of possible conversion disorder. Unfortunately the patient has been treated in the recent past as if he had true seizures with benzodiazepines which he seems to enjoy. The way he performs his ?seizure activity? is very convincing too many providers who have seen him. Upon transferred to the ICU this afternoon the patient was challenged once again confirming that these are pseudoseizures. All sedating medications were stopped with the exception of Keppra. While on my service, the patient has been agitated yelling screaming for water, food and when not obtaining what he wants, he starts shaking, foaming out of the mouth and twitching as if he was having seizures. During all of these episodes, I have asked him to stop and told him that he will get tire of doing it as he will not be getting any medications ensure enough he stopped doing it and right away started asking for pain medications and water. This time, patient is presenting similarly to the above noted ICU excerpt. However, this time the patient did have urinary incontinence while foaming at the mouth. It is difficult to tell if patient is having pseudoseizures, versus epileptic seizures. Patient has not returned to his normal state of mind in between these episodes. Status epilepticus can not be ruled out. We have been unable to do any CT scans because of the patient's movement when attempting the imaging, despite having giving him multiple IV medications. Ultimately, the patient was intubated, we will obtain the scans that we needed including head CT. We do not do EEGs during the night here, therefore, patient will have to be transferred to rule out status epilepticus. Differential Diagnosis Differential Diagnoses: The differential diagnosis associated with the presentation includes Abdominal pain AMS Lactic acidosis Hypokalemia Admission/Observation Consideration of admission/observation: Escalation of care including admission/observation considered Patient's disposition will be determined after results and re-evaluation by ELIZA Slaughter. Lab Data [facility] Lab Attestation statement: I reviewed the patient's lab results. My interpretation of these results are in the [facility] Rationale portion of this note. 08/03/25 17:39 08/03/25 17:39 Labs: Lab Results 08/03/25 08/03/25 08/03/25 Range/Units 17:39 19:36 22:25 WBC 14.1 H (4.8-10.8) X10*3/uL RBC 5.02 (4.60-5.80) X10*6/uL Hgb 11.9 L (14.0-18.0) g/dl Hct 39.6 L (42.0-52.0) % MCV 78.9 L (80.0-98.0) fL MCH 23.7 L (27.0-33.0) pg MCHC 30.1 L (31.0-36.0) g/dl RDW 20.6 H (11.0-16.0) % Plt Count 671 H D (160-400) X10*3/uL MPV 8.4 L (9.4-12.4) fL Immature Gran % (Auto) 0.4 (0.0-0.4) % Neut % (Auto) 54.2 (45-73) % Lymph % (Auto) 38.0 (20-40) % [place] % (Auto) 6.1 (2-11) % Eos % (Auto) 1.1 (0-4) % Baso % (Auto) 0.2 (0-2) % Lymph # (Auto) 5.4 H (1.2-4.9) X10*3/uL [place] # (Auto) 0.9 (0.1-1.2) X10*3/uL Eos # (Auto) 0.2 (0.0-0.4) X10*3/uL Baso # (Auto) 0.0 (0.0-0.2) X10*3/uL Abs Immat Gran (auto) 0.05 H (0.00-0.03) X10*3/uL Absolute Neuts (auto) 7.7 (2.0-8.3) x10*3/uL Absolute Nucleated RBC 0.000 (0.0-0.012) X10*3/uL Nucleated RBC % (auto) 0.0 (0.0-0.2) /100WBC Smear Tech's Comments VERIFIED Hold Purple Top SEE NOTE Sodium 139 (135-145) mmol/L Potassium 3.2 L (3.3-5.1) mmol/L Chloride 105 (96-108) mmol/L Carbon Dioxide 19 L (22-29) mmol/L Anion Gap 18 (12-20) BUN 13 (9-16) mg/dL Creatinine 0.89 (0.5-1.4) mg/dL Estim Creat Clear Calc 122.3 Estimated GFR > 60 Random Glucose 123 H (60-115) mg/dL Lactic Acid 3.5 H* (0.5-2.0) mmol/L Lactic Acid F/U @ 2Hr (0.5-2.0) mmol/L Calcium 9.3 D (8.4-10.2) mg/dL Magnesium 2.0 (1.6-2.6) mg/dL Total Bilirubin 2.8 H (0.0-1.0) mg/dL AST 169 H (5-37) U/L ALT 169 H (0-40) U/L Alkaline Phosphatase 721 H (39-117) U/L Ammonia (13-55) umol/L Total Creatine Kinase 107 (38-174) U/L Total Protein 9.0 H (6.5-8.0) g/dL Albumin 4.3 (3.5-5.0) g/dL Lipase 39 (8-78) U/L Hold Yellow Top See Note Urine Color Dark Yellow Urine Appearance Clear Urine pH 5.5 (5.0-9.0) Ur Specific [place] >= 1.030 H (1.005-1.025) Urine Protein Negative (Neg-Trace) mg/dL Urine Glucose (UA) Negative (Negative) mg/dL Urine Ketones Negative (Negative) mg/dL Urine Blood Negative (Negative) Urine Nitrite Negative (Negative) Ur Leukocyte Esterase Negative (Negative) Urine Opiates Screen Not Detected (Not Detect) Ur Buprenorphine Scrn Not Detected (Not Detect) ng/mL Ur Oxycodone Screen Not Detected (Not Detect) ng/mL Urine Methadone Screen Not Detected (Not Detect) ng/mL Urine Fentanyl Screen Not Detected (Not Detect) Ur Barbiturates Screen Not Detected (Not Detect) Ur Phencyclidine Scrn Not Detected (Not Detect) Ur Amphetamines Screen POSITIVE H (Not Detect) U Benzodiazepines Scrn POSITIVE H (Not Detect) Urine Cocaine Screen Not Detected (Not Detect) U Marijuana (THC) Screen Not Detected (Not Detect) Influenza Type A (PCR) NEGATIVE (Negative) Influenza Type B (PCR) NEGATIVE (Negative) RSV RNA Qual (PCR) NEGATIVE (Negative) SARS-CoV-2 RNA (RT-PCR) NEGATIVE (Negative) 08/03/25 Range/Units 22:57 WBC (4.8-10.8) X10*3/uL RBC (4.60-5.80) X10*6/uL Hgb (14.0-18.0) g/dl Hct (42.0-52.0) % MCV (80.0-98.0) fL MCH (27.0-33.0) pg MCHC (31.0-36.0) g/dl RDW (11.0-16.0) % Plt Count (160-400) X10*3/uL MPV (9.4-12.4) fL Immature Gran % (Auto) (0.0-0.4) % Neut % (Auto) (45-73) % Lymph % (Auto) (20-40) % [place] % (Auto) (2-11) % Eos % (Auto) (0-4) % Baso % (Auto) (0-2) % Lymph # (Auto) (1.2-4.9) X10*3/uL [place] # (Auto) (0.1-1.2) X10*3/uL Eos # (Auto) (0.0-0.4) X10*3/uL Baso # (Auto) (0.0-0.2) X10*3/uL Abs Immat Gran (auto) (0.00-0.03) X10*3/uL Absolute Neuts (auto) (2.0-8.3) x10*3/uL Absolute Nucleated RBC (0.0-0.012) X10*3/uL Nucleated RBC % (auto) (0.0-0.2) /100WBC Smear Tech's Comments Hold Purple Top Sodium (135-145) mmol/L Potassium (3.3-5.1) mmol/L Chloride (96-108) mmol/L Carbon Dioxide (22-29) mmol/L Anion Gap (12-20) BUN (9-16) mg/dL Creatinine (0.5-1.4) mg/dL Estim Creat Clear Calc Estimated GFR Random Glucose (60-115) mg/dL Lactic Acid (0.5-2.0) mmol/L Lactic Acid F/U @ 2Hr 1.1 (0.5-2.0) mmol/L Calcium (8.4-10.2) mg/dL Magnesium (1.6-2.6) mg/dL Total Bilirubin (0.0-1.0) mg/dL AST (5-37) U/L ALT (0-40) U/L Alkaline Phosphatase (39-117) U/L Ammonia 29 (13-55) umol/L Total Creatine Kinase (38-174) U/L Total Protein (6.5-8.0) g/dL Albumin (3.5-5.0) g/dL Lipase (8-78) U/L Hold Yellow Top Urine Color Urine Appearance Urine pH (5.0-9.0) Ur Specific [place] (1.005-1.025) Urine Protein (Neg-Trace) mg/dL Urine Glucose (UA) (Negative) mg/dL Urine Ketones (Negative) mg/dL Urine Blood (Negative) Urine Nitrite (Negative) Ur Leukocyte Esterase (Negative) Urine Opiates Screen (Not Detect) Ur Buprenorphine Scrn (Not Detect) ng/mL Ur Oxycodone Screen (Not Detect) ng/mL Urine Methadone Screen (Not Detect) ng/mL Urine Fentanyl Screen (Not Detect) Ur Barbiturates Screen (Not Detect) Ur Phencyclidine Scrn (Not Detect) Ur Amphetamines Screen (Not Detect) U Benzodiazepines Scrn (Not Detect) Urine Cocaine Screen (Not Detect) U Marijuana (THC) Screen (Not Detect) Influenza Type A (PCR) (Negative) Influenza Type B (PCR) (Negative) RSV RNA Qual (PCR) (Negative) SARS-CoV-2 RNA (RT-PCR) (Negative) Independent Historian Clinical information obtained from an independent historian. History obtained from or confirmed by: EMS (EMS provided additional history and confirmed the history provided by the patient. ) Critical Care Time Critical Care Time Critical Care Time: Yes Total Critical Care Time: 85 Attestation: This patient required critical care. Due to the fact that the patient required a significant amount of one on one physician ? patient contact time, ordering and review of studies, arranging urgent treatment with development of a management plan, evaluation of patient?s response to treatment with frequent reassessments, and discussions with other providers this patient required critical care time in excess of 30 minutes. Critical care time was indicated due to the inherent instability and/or potential for instability in this patient. The critical care time that is allocated to this patient is above and beyond any time spent on any other billable procedures performed on this patient. Discharge Plan Discharge Clinical Impression: Sepsis, Seizure-like activity, Acute cholecystitis, HIV (human immunodeficiency virus infection) Altered mental status Qualifiers: Altered mental status type: unspecified Qualified Code(s): R41.82 - Altered mental status, unspecified Patient Disposition: [facility] Transfer Details: [facility] Prescriptions: No Action Biktarvy 50-200-25 mg Tablet 1 tab PO DAILY 90 Days Qty: 90 0RF cefuroxime axetil 500 mg tablet 500 mg PO BID 28 Days Qty: 56 0RF metronidazole 500 mg tablet 500 mg PO BID 28 Days Qty: 56 0RF hydrocortisone [Proctozone-HC] 2.5 % Cream With Perineal Applicator 1 appl NE BID 30 Days Qty: 30 0RF divalproex 500 mg tablet,delayed release (DR/EC) 1,000 mg PO BID 90 Days Qty: 360 0RF Interventions: Acute Care Transfer Worksheet (ED) Last Done: 08/04/25 00:28 Discharge Date/Time: 08/04/25 00:00 Print Language: Luxembourgish
[2025-08-03 17:52] LABS: Hematocrit 39.6 % (42.0-52.0); Hemoglobin 11.9 g/dl (14.0-18.0); Imm Gran Abs Auto 0.05 X10*3/uL (0.00-0.03); Imm Gran Pct Auto 0.4 % (0.0-0.4); Lymphocytes Absolute Auto 5.4 X10*3/uL (1.2-4.9); MANUAL DIFF FLAG SCAN; Mean Corpuscular HGB Conc 30.1 g/dl (31.0-36.0); Mean Corpuscular Hemoglobin 23.7 pg (27.0-33.0); Mean Corpuscular Volume 78.9 fL (80.0-98.0); NRBC Abs Auto 0.000 X10*3/uL (0.0-0.012); NRBC Pct Auto 0.0 /100WBC (0.0-0.2); Red Blood Count 5.02 X10*6/uL (4.60-5.80); SCAN SMEAR FLAG 1; White Blood Count 14.1 X10*3/uL (4.8-10.8)
[2025-08-03 18:13] LABS: Alanine Aminotransferase 169 U/L (0-40); Albumin Level 4.3 g/dL (3.5-5.0); Alkaline Phosphatase 721 U/L (39-117); Anion Gap 18 (12-20); Aspartate Amino Transferase 169 U/L (5-37); Blood Urea Nitrogen 13 mg/dL (9-16); Calcium 9.3 mg/dL (8.4-10.2); Carbon Dioxide 19 mmol/L (22-29); Chloride 105 mmol/L (96-108); Creatinine Clr Calc Pharmacy 122.3; Estimated Glomerular Filt Rate > 60; Lipase 39 U/L (8-78); Magnesium 2.0 mg/dL (1.6-2.6); Potassium 3.2 mmol/L (3.3-5.1); Sodium 139 mmol/L (135-145); Total Protein 9.0 g/dL (6.5-8.0)
[2025-08-03 18:20] LABS: Platelet Count 671 X10*3/uL (160-400)
[2025-08-03 18:31] LABS: Resp Syncy Virus RNA Qual PCR NEGATIVE (Negative); SARS COV2 PCR INHOUSE NEGATIVE (Negative)
[2025-08-03] MEDS: Lactated Ringers 1,000 ML 999 ML IV (18:37)
[2025-08-03] MEDS: diazePAM 10 MG/2 ML CARTRIDGE 5 MG IVPUSH ×2 (18:37→20:54)
--- NOTE | 2025-08-03 19:18 | PC.NURSE ---
RN assumed care at 1900, PAMELA Sweet reported to this RN that pt faked a seizure early- MD confirmed.
[2025-08-03] MEDS: levETIRAcetam in NaCl (iso-os) 1,000 MG/100 ML PIGGYBACK 400 MG IV (19:31)
--- NOTE | 2025-08-03 19:57 | PC.NURSE ---
RN informed that at this point MD is unsure if pt is truly faking seizures so we will treat as the real thing. Pt medicated per mar with keppra. will continue to monitor.
[2025-08-03] MEDS: Potassium Chloride/H20 10 MEQ/100 ML PIGGYBACK 100 MEQ IV (20:10)
--- NOTE | 2025-08-03 20:11 | ECG_ITS ---
Test Reason : AMS Blood Pressure : */* mmHG Vent. Rate : 111 BPM Atrial Rate : 111 BPM P-R Int : 124 ms QRS Dur : 86 ms QT Int : 322 ms P-R-T Axes : 56 59 34 degrees QTcB Int : 437 ms Sinus tachycardia Otherwise normal ECG When compared with ECG of 21-Jul-2025 18:41, No significant change was found Referred By: Kasandra Goode Electronically Signed By: JUANITA MEEKS
[2025-08-03] MEDS: Ketamine HCl/NS 50 MG/5 ML SYRINGE 34.7 MG IVPUSH (20:26)
[2025-08-03] MEDS: Etomidate 20 MG/10 ML VIAL IVPUSH (21:08)
[2025-08-03 21:41] LABS: Reflex Lactate? Lactic Acid Added
[2025-08-03] MEDS: iohexoL 350 MG/ML 100 ML INFUS..BTL 85 ML IV (21:51)
--- NOTE | 2025-08-03 22:02 | PC.NURSE ---
unable to obtain secondary IV line as pt is a hard stick- has a lot of scar tissue. delay in some iv meds on the mar because of this. pt currently has a #20 in the LFA.
[2025-08-03 22:39] LABS: Appearance Urine Clear; Glucose Urine UA Negative (Negative); PH 5.5 (5.0-9.0); Specific Gravity - Urine >= 1.030 (1.005-1.025)
[2025-08-03] MEDS: Midazolam HCl/NS 50 MG/50 ML PLAST..BAG IVCONT (22:42)
[2025-08-03 22:49] LABS: Cannabinoid Screen Urine Not Detected (Not Detect)
[2025-08-03] MEDS: diazePAM 10 MG/2 ML CARTRIDGE IVPUSH (23:04)
--- NOTE | 2025-08-03 23:08 | PC.NURSE ---
pt tensing up, reaching for tube. Dr. Covington notified and verbal for 10mg IVP Valium ordered and given per mar with good affect.
[2025-08-03 23:19] LABS: ~Lactic Acid-LAB USE ONLY 1.1 mmol/L (0.5-2.0)
[2025-08-03 23:24] LABS: Ammonia 29 umol/L (13-55)
--- NOTE | 2025-08-03 23:29 | PC.NURSE ---
RN called [facility] and gave report to nurse ram. Discussed what was done here at [facility], what meds are currently infusing and what access pt has. RN Ok with report. Rn also gave report to EMS. ems here for transport.
[2025-08-03] MEDS: fentaNYL citrate/NS 1,000 MCG/100 ML PLAST..BAG 2.5 MCG IVCONT (23:37)
[2025-08-04] VITALS: BP 101/78; PULSE 97; O2SAT 99
--- NOTE | 2025-08-04 00:01 | PC.NURSE ---
pt left ems with soft restraints on. propofol, versed & fentanyl currently infusing.
--- NOTE | 2025-08-04 00:13 | PC.NURSE ---
second bag of IV was not infused as pt only had 1 IV access and once he got another one the meds that were infusing were not compatible with K+.
--- NOTE | 2025-08-04 00:24 | PC.NURSE ---
*late entry* pt intubated @ or around 2200. MD, RT & other RNs at bed side. This RN administered the meds per MDs verbal orders as well as the mar.
[2025-08-04 00:28] VITALS: BP 101/78; PULSE 97; RESP 20; TEMP -17.7; TEMP 0; O2SAT 99
--- NOTE | 2025-08-04 00:35 | PC.NURSE ---
RN attempted to call primary contact sister katarzyna jonas w/ call back #. RN also called emergency contact mother however phone # was disconnected.
--- NOTE | 2025-08-04 00:54 | MHC.EDTECH ---
pt apple watch senior international tax manager was left in the room when EMS picked pt up for transfer. pt not noted to have had on an apple watch. watch senior international tax manager placed in bag with pt label and given to security to place in lost and found.
--- OUTSIDE RECORDS SUMMARY | 2025-08-04 00:58 | XMS_ITS | Encounter Summary ---
Author Organization [facility] Address [address] [place] [address] Care Team Providers Care Tacker Off Name Role Phone Real Hightower MD PhD Primary Care Provider Reason for Visit * Reason Comments Seizures * Auth/Cert Specialty Diagnoses / Procedures Referred By Contpam t Referred To Contact Diagnoses Seizure (HCC) Status epilepticus Seizure-like activity Procedures n/a Referral ID Status Reason Start Date Expiration Date Visits Re quested Visits Authorized [id number] 1 1 Encounter Details Date Type Department Care Team (Latest Contact Info) Description 08/04/2025 12:58 AM EST - Present Hospital Encounter [facility] 9 ICU [address] [place] [address] Juani De Jesus MD [address] [place] [address] Alberto Cross MD [address] [address] Gerald Vieira MD [address] [address] Seizures (HCC) (Primary Dx); Cholecystitis; Endotracheally intubated; Sepsis (HCC) Social History Tobacco Use Types Packs/Day Years Used Date Smoking Tobacco: Never Assessed Sex and Gender Information Value Date Recorded Sex Assigned at Male 08/04/2025 1:08 AM EST Legal Sex Male 8:58 AM EST Gender Identity Male 08/04/2025 1:08 AM EST Sexual Orientation Heterosexual (straight) 08/04 1:08 AM EST documented as of this encounter Last Filed Vital Signs Vital Sign Reading Time Taken Comments Blood Pressure 148/98 08/04/2025 1:00 PM EST Pulse 107 08/04/2025 1:01 PM EST Temperature 36.4 C (97.5 F) 08/04/2025 12:00 PM EST Respiratory Rate 14 08/04/2025 1:00 PM EST Oxygen Saturation 96% 08/04/2025 1:0 1 PM EST Inhaled Oxygen Concentration - - Weight 70.5 kg (155 lb 6.8 oz) 08/04/2025 5:15 AM EST Height 175.3 cm (5' 9 ) 08/04/2025 12:2 9 PM EST taken from Care Everywhere OSH record Body Mass Index 22.95 08/04/2025 5:15 AM EST documented in this encounter Discharge Instructions * Discharge Instr - Other Orders* Elisha Kumar PA-C - 08/04/2025 9:38 AM EST Images from the original note were not included. Complex General Surgical Oncology & Hepatopancreatobiliary Surgery Percutaneous Cholecystostomy Tube Instructions (Gallbladder drain) Cholecystostomy tube placement is when a flexible drainage tube (catheter) is placed into your gallbladder. You have had this procedure because you had an infection in your gallbladder but the surgeon decided you could not have gallbladder removal surgery. For most patients, the tube is temporary. For some patients who are very high risk for surgery, the tube may be permanent. Drain Care Please flush your drain using sterile technique using 10mL sterile saline twice daily. You will receive instructions on how to do this prior to leaving the hospital and will have ongoing instructionsfrom your visiting nurse if needed. Please record the volume (amount) of drainage everyday. Write down these numbers and bring the listto all of your appointments. Change the dressing around your drain at least every 3 days and sooner if it is stained. Follow-up You should be scheduled for an appointment with the Interventional Radiology (IR) team in approximately 4 weeks unless otherwise instructed. If you have not received an appointment at the time you leave the hospital, call [phone] to schedule an appointment. Most patients have a cholangiogram approximately 6 weeks after the tube is placed. A cholangiogram is an x-ray study where the radiologist injects dye into your tube. This helps the surgeon decide ifyour tube can be removed or if you will need a surgery. This is scheduled at the time of your appointment with the Interventional Radiology (IR) team, if not sooner. You should be scheduled for an appointment the surgeon in approximately 8 weeks. This appointment should be after your cholangiogram and may be rescheduled if your cholangiogram has not been completed. You may be scheduled to see the surgeon you met in the hospital or you may see one of our hepatopancreatobiliary subspecialists depending on your situation. If you have not received an appointment at the time you leave the hospital, call [phone] to schedule an appointment. When and Who to Call If you need additional supplies, including saline flush syringes, call the Interventional Radiology(IR) office at [phone]. If the color of your drainage changes or the drainage stops, call the surgeons office at [phone]. If the skin around your drain is irritated and raw, call the surgeons office at [phone]. documented in this encounter Progress Notes * Jeff Bah, MARY - 08/04/2025 4:28 AM EST NEURO CRITICAL CARE ADMISSION NOTE MEDICAL ICU BOARDER For any questions please [place] Text the role: JIN Patrick [facility] Admit Date: 08/04/2025 12:58 AM Length of Hospitalization: 0 days Primary Attending: Alberto Cross MD ICU Attending: Dr. Mills SHIFT: 7pm-7am CODE: full code Chief Complaint/ Brief Summary Everardo is a 25 year-old male admitted 08/04 with seizures & concern for status epilepticus. Assessment & Plan The patient remains critically ill/injured and/or remains at high risk for life threatening complications due to: NEUROLOGICAL Seizures, Concern for Status Epilepticus PNES -- Neuro Checks Q4H -- Neurology consulted; pending rec's -- SBP <180 mmHg w/ MAP >65 mmHg -- HOB >30 degrees -- Appears was previously prescribed Depakote 1 gm BID but has not been filled since 02/17/25 -- F/up VPA level sent ~08/04 -- Routine EEG ordered/pending -- Versed infusion @ 2 mg/hr Acute Pain Polysubstance Use Disorder Bipolar Schizophrenia -- Fentanyl 25 mcg Q2H PRN -- Fentanyl infusion @ 50 mcg/hr -- No current psychiatric medications; was previously prescribed Mirtazapine 15 mg daily but has not filled since 02/17/25 -- COWS/CIWA monitoring -- MVI, thiamine & folate supplementation -- Prior history of combative behaviors at hospital staff; would likely benefit from Psychiatry consultation once extubated CARDIAC No acute issues PULMONARY Acute Respiratory Insufficiency, Neurogenic Mediated -- Mechanical ventilation protocol, titrate FIO2 to goal SPO2 >92% -- Propofol infusion for ventilator tolerance GI/NUTRITION Dysphagia, Neurogenic Mediated Risk for Protein Calorie Malnutrition -- Nutrition consult for TF rec's -- NPO except meds via OGT -- Serial nutrition labs weekly Transaminitis Elevated Alkaline Phosphatase Concern for Acute Cholecystitis +Hepatitis C Antibody Hyperbilirubinemia -- Serial LFTs daily -- Avoid hepatotoxins -- Check RUQ U/S -- General Surgery following; recommending HIDA scan (ordered) -- Check Hepatitis panel -- GI consult 08/04 AM RENAL NAGMA -- Serial BMP daily -- mIVF w/ LR @ 75 ml/hr HEME Microcytic Anemia -- Serial CBC daily, goal H&H >7 -- Check iron studies ID Leukocytosis without Fever HIV Untreated Syphilis Infection Concern for Acute Cholecystitis -- Monitor fever/WBC curve -- Jacobs culture for temp >101F -- Check RPR & syphilis Ab & CD4 counts -- ID consult 08/04 AM -- F/up blood culture sent ~08/04 -- Empiric CTX + Flagyl -- Biktarvy daily ENDOCRINE Risk for Hypo/Hyperglycemia -- Check A1c -- POCT glucose Q4H with standard NPO Lispro SSI MSK/DERM No acute issues PROPHYLAXIS VAP Prophylaxis: Peridex Stress Ulcer Prophylaxis: Indicated - PPI DVT Prophylaxis: VTE Time Out IMPROVE SCORE: 2 (08/04/2025 5:20 AM) Interpretation - High Risk Chemical Prophylaxis Mechanical Prophylaxis SCDs are ordered - Bilateral (Knee High) DEVICE TIME OUT Lines Peripheral IV - Single Lumen (Adult) 08/04/25 0102 median vein (underside of arm), left 18 gauge (Active) Number of days: 0 Peripheral IV - Single Lumen (Adult) 08/04/25 0103 basilic vein (medial side of arm), right 20 gauge (Active) Number of days: 0 Enteric Access and Solorio Urethral Catheter (Adult) 08/04/25 0105 latex 16 Fr (Active) Number of days: 0 RESTRAINTS BUE wrist Indication: Interference with medical devices, risk for self injury Assessment and Plan reviewed in detail and updated if indicated. Any changes made to plan are reflected above. Unchanged diagnoses remain relevant. Subjective PMHx: HIV (non-compliant w/ Biktarvy), PNES, polysubstance use, schizophrenia, bipolar disorder HPI: Everardo is a 25 year-old male who presented to OSH on 08/[address] A/P with concern for acute cholecystitis. While at the OSH he had witnessed seizure-like activity with incontinence of bowel/bladder and was intubated for airway protection and given Keppra, Ceftriaxone & Valium and was transferred to for further management. In the ED he was seen by General Surgery. He was subsequently admitted to [facility] as a MICU boarder. Shank Burnisher Events: -- Admit to [facility] @ [facility] -- Spoke w/ NM; unable to do HIDA 08/04; will plan for 08/05, keep NPO after MN Objective Vitals: Temp Last 24 hrs: Temp Min: 96.3 ??F (35.7 ??C) Max: 97.9 ??F (36.6 ??C) Last Vitals: HR:79, Resp:16, BP:BP Min: 115/69 Max: 156/103 MAP: SpO2:100 %,O2 Device: ventilator, , Oxygen Concentration (%) (Drager): 40 I/O this shift: In: 326.6 [I.V.:126.6; IV Piggyback:200] Out: - Intake/Output Summary (Last 24 hours) at 08/04/2025 0538 Last data filed at 08/04/2025 0542 Gross per 24 hour Intake 326.55 ml Output -- Net 326.55 ml Data/Physical Exam DRIPS fentaNYL, 50 mcg/hr, Last Rate: 50 mcg/hr (08/04/25 0500) midazolam (VERSED) IV infusion/drip, 2 mg/hr, Last Rate: 2 mg/hr (08/04/25 0500) propofol, 5-50 mcg/kg/min (Order-Specific), Last Rate: 50 mcg/kg/min (08/04/25 0500) PHYSICAL EXAM PERFORMED AT: 0520 NEURO: Neuro Exam: Examined on Propofol @ 50 mcg/kg/min, Fentanyl @ 50 mcg/hr & Versed @ 2 mg/hr. No eye opening, w/ passive eye raise dysconjugate gaze, pupils 2mm brisk, +corneals, +cough. Spont moving x4. No FSC. Briskly W/D x4 extremities to noxious. Recent Labs 08/04/25 0145 NA 136 CV: CV Exam: NSR, S1/S2, regular rate/rhythm, no murmurs/rubs/clicks/gallops. Skin warm and dry, without edema. Pulses palpable 2+ x4 extremities. Telemetry: Rhythm: Normal Sinus Rhythm Events: No events noted Need Assessment: this patient currently requires telemetry due to critical care PULM: Pulm Exam: #7.5fr ETT @ 26 cm, AC/VC 14/450/6/40%, mVE ~8.18. Lungs dim t/o, scant secretions via ETT suction. RR: 16,SpO2:100 % Ventilation Mode (Drager): VC-AC (invasive) Rate Set (breaths/min) (Drager): 14 Tidal Volume Set (mL) (Drager): 450 Oxygen Concentration (%) (Drager): 40 PEEP (cmH2O) (Drager): 6 Ventilation Mode (Bellavista): Volume Assist Control Ventilation Rate Set (breaths/min) (Bellavista): 18 Vt Set ml (Bellavista): 420 PEEP (cm H2O) (Bellavista): 6 mbar GI/NUTRITION: GI Exam: OGT clamped. Abdomen soft/nondistended, BS present x4. 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 Indication: Strict I/O Recent Labs 08/04/25144 NA 136 K 3.9 CO2 19* CL 107 BUN 7* CREAT 0.70 CALCIUM 8.2* MG 1.8 Calcium, Ionized Date Value Ref Range Status 11/24/2021 1.15 (L) 1.17 - 1.33 mmol/L Final Recent Labs 08/04/2514408/04/25 0304 LACTIC 1.8 1.5 HEME: Recent Labs 08/04/25144 HCT 31.9* HGB 9.9* WBC 12.9* PLT 510* Recent Labs 08/04/25144 INR 1.0 ID: Temp Min: 96.3 ??F (35.7 ??C) Max: 97.9 ??F (36.6 ??C) Recent Labs 08/04/25144 WBC 12.9* ENDOCRINE: Results from last 7 days Lab Units 08/04/25 0542 08/04/2514408/04/25 0121 GLUCOSE mg/dL -- 119* -- GLUCOSE, POC mg/dL 84 -- 123* MSK/DERM: MSK Exam: Skin warm & dry. Critical Care time exclusive of time spent performing separately billable medical procedures is 60 minutes. Activities included: Chart/data review, Documentation, Medication orders/management, Titration of medications, Collaborating with consultants, Care, transfer of care and discharge plans, Nutritional support, Interpreting/reviewing radiologic studies, Reviewing RN notes/previous records, Ventilator management, Vital sign assessments, and Interpreting/reviewing lab tests Signature Jeff Bah APRN 5:49 AM 08/04/2025 Surgical Critical Care, Neurocritical Care documented in this encounter H&P Notes * Kathleen Hinson MD - 08/04/2025 6:26 AM EST Images from the original note were not included. [facility] CRITICAL CARE RESIDENT for further management Colitis: 0 CODE: Code Status Procedures Full Code Assessment and Plan Problem List Principal Problem: Seizure (HCC) (POA: Yes) Resolved Problems: Assessment Everardo Cramer 25 y.o. w/ PMHx HIV (non compliant with biktarvy), seizure, polysubstance abuse, schizophrenia, and bipolar disorder who was transferred from [facility] with concern for status epilepticus s/p intubation and acute cholecystitis. Plan by system NEUROLOGY: - Sedation: Propofol 50 mcg/KG/minute, Midazolam 2 mg/hr - Analgesia: Fentanyl Seizures like activity Patient reportedly had several seizure-like activities that were associated with stool and urine incontinence at [facility] for which he was treated with IV Keppra, phenytoin, and Valium. CT head was negative for acute intracranial findings. No previous EEG documented in the chart. Seems that the patient has been on Depakote for seizures and psychiatric disorders. Breakthrough seizure could be secondaryto to medication noncompliance and/or infection. -Obtain Depakote level -Restart 1g depakote BID -Neurology consulted -STAT EEG ordered -Can lighten drips when confirmed not to be seizing on EEG Behavioral/Sedation scales CAM-ICU Delirium Present: Positive Doan Agitation Sedation Scale (RASS) / Modified RASS: -1-->Wakes easily, drowsy RESPIRATORY Intubated for airway protection Ventilator Start 08/04/25 0120 (Active) Number of days: 0 Ventilation Mode (Drager): VC-AC (invasive) (08/04 515) Rate Set (breaths/min) (Drager): 14 (08/04 515) Tidal Volume Set (mL) (Drager): 450 (08/04 515) Oxygen Concentration (%) (Drager): 40 (08/04 515) PEEP (cmH2O) (Drager): 6 (08/04 515) CARDIOVASCULAR - BP 115/69; HR 86 No active issue GASTROENTEROLOGY Acute cholecystitis Patient has history of gallstone, initially presented to [facility] for abdominal pain CT abdomen pelvis showed signs of acute cholecystitis. WBC of 12.9, total bilirubin of 2.6, direct bilirubin 2.2, AST 137, ALT 140, ALP 585. Surgery reconsulted for possible invention. -N.p.o. for now -Surgery consulted, appreciate recs, NTD -RUQ ultrasound - Ceftriaxone+flagyl -GI consult in the AM -LFTs in the AM, trend Nutrition Diet/Nutrition Received: NPO Diet NPO NEPHROLOGY No active issues Intake & Output Intake/Output Summary (Last 24 hours) at 08/04/2025 0644 Last data filed at 08/04/2025 0600 Gross per 24 hour Intake 360.55 ml Output 700 ml Net -339.45 ml ENDOCRINOLOGY No active issues -Q6 fs while NPO HEMATOLOGY/ ONCOLOGY Anemia Baseline hemoglobin appears to be around 9.5. Presentation hemoglobin is 9.9. - Daily CBC INFECTIOUS DISEASE History of HIV History of syphilis Patient has history of HIV and he is noncompliant with Biktarvy. - Start Biktarvy - RPR pending Antibiotics Anti-infectives (From admission, onward) Start Dose/Rate Route Frequency Ordered Stop 08/04/25 1200 metroNIDAZOLE (FLAGYL) IVPB 500 mg in 100 mL NS (premix) 500 mg 100 mL/hr over 60 Minutes Intravenous Every 12 hours 08/04/25 0638 08/04/25 0900 agixkvyuomp-jtwucuewswfiy-ibdgeiihr (BIKTARVY) 50-200-25 mg tablet 1 tablet 1 tablet Feeding Tube Daily 08/04/25 0518 08/04/25 0600 cefTRIAXone (ROCEPHIN) 1 g in sodium chloride-MBP (NS) 100 mL IVPB-MBP 1 g 200 mL/hr over 30 Minutes Intravenous Every 24 hours 08/04/25 0457 Ceftriaxone and Flagyl Plan to be discussed w/ Dr Alberto Cross MD ICU Check-list Code: Code Status Procedures Full Code Drips: fentaNYL, 50 mcg/hr, Last Rate: 50 mcg/hr (08/04/25 06) midazolam (VERSED) IV infusion/drip, 2 mg/hr, Last Rate: 2 mg/hr (08/04/25 06) propofol, 5-50 mcg/kg/min (Order-Specific), Last Rate: 50 mcg/kg/min (08/04/25 06) Lines: Peripheral IV - Single Lumen (Adult) 08/04/25 0102 median vein (underside of arm), left 18 gauge (Active) Number of days: 0 Peripheral IV - Single Lumen (Adult) 08/04/25102 basilic vein (medial side of arm), right 20 gauge (Active) Number of days: 0 Enteric Access and Solorio: Urethral Catheter (Adult) 08/04/25104 latex 16 Fr (Active) Number of days: 0 Restraints: Restraint Type: Unlocked Unlocked Bilateral Wrist (NV): start Behaviors Observed: agitated/restless, pulling at lines/tubes Solorio: Urethral Catheter (Adult) 08/04/25 010 latex 16 Fr (Active) Number of days: 0 Evaluation for removal of Solorio was discussed today on rounds. If no longer indicated, then it would be removed. Indication for keeping Solorio: Strict I&Os DVT PPx: None IMPROVE SCORE: Immobilization: 1--> Immobilization Stepdown / ICU / CCU Stay: 1-->Stepdown / ICU / CCU stay IMPROVE SCORE: 2 Mobility: Progressive Mobility Level Achieved: Level 0,PT/OT: No GI ppx: Pantoprazole Dispo: Lovenox Family update: No Subjective Chief Complaint Seizure like activity History of Present Illness Everardo Cramer is male 25 y.o. with history of HIV (noncompliant with Biktarvy), seizure vs PNES, polysubstance use, schizophrenia, bipolar disorder, and gallstones who initially presented to [facility] due to abdominal pain. CT abdomen and pelvis showed signs of possible acute cholecystitis. Patient reportedly had witnessed seizure-like activity that were associated with incontinent of stool and urine. Patient was intubated for airway protection. CT head showed no acute intracranial findings. Patient was given Keppra IV, ceftriaxone, 700 mg phenytoin and Valium. He was transferred to for further management. On 06/10 he had patient appointment with neurology and the plan was to get MRI brain and EEG but it were never done. Of note patient was recently hospitalized at [facility] on February 2025 for combativeness, possible aspiration pneumonia, hypoxia s/p intubation. Review of Systems Review of Systems Unable to perform ROS: Intubated Past History No past medical history on file. Past Surgical History: Procedure Laterality Date ANGIOPLASTY RENAL/VISCERAL N/A 11/17/2021 Procedure: ANGIOPLASTY RENAL/VISCERAL; Surgeon: Agustina Bradley MD; Location: IR; Service: Interventional Radiology; Laterality: N/A; SIGMOIDOSCOPY FLEXIBLE N/A 11/17/2021 Procedure: SIGMOIDOSCOPY FLEXIBLE; Surgeon: Abril Machado MD; Location: GI Endoscopy; Service: Gastroenterology; Laterality: N/A; SIGMOIDOSCOPY FLEXIBLE N/A 11/19/2021 Procedure: SIGMOIDOSCOPY FLEXIBLE; Surgeon: Abril Machado MD; Location: GI Endoscopy; Service: Gastroenterology; Laterality: N/A; No family history on file. Social History Tobacco Use Smoking status: Not on file Smokeless tobacco: Not on file Substance Use Topics Alcohol use: Not on file Allergies Allergies[1] Current Medications Current Medications[2] Objective Last Vitals Pulse:86,Resp:14,BP:129/79,SpO2:100 %,Weight:70.5 kg (155 lb 6.8 oz) Temp Last 24 hrs: Temp Min: 96.3 ??F (35.7 ??C) Max: 97.9 ??F (36.6 ??C) Last temp: 97.9 ??F (36.6 ??C) (Tympanic) Intake/Output Summary (Last 24 hours) at 08/04/2025 0644 Last data filed at 08/04/2025 0600 Gross per 24 hour Intake 360.55 ml Output 700 ml Net -339.45 ml Physical Exam Constitutional: Comments: Intubated HENT: Head: Normocephalic and atraumatic. Eyes: Conjunctiva/sclera: Conjunctivae normal. Pupils: Pupils are equal, round, and reactive to light. Cardiovascular: Rate and Rhythm: Normal rate and regular rhythm. Pulmonary: Effort: No respiratory distress. Breath sounds: Normal breath sounds. No wheezing, rhonchi or rales. Abdominal: General: Abdomen is flat. There is no distension. Palpations: Abdomen is soft. Musculoskeletal: Right lower leg: No edema. Left lower leg: No edema. Skin: General: Skin is warm and dry. Coloration: Skin is not jaundiced. Neurological: Comments: Intubated, was moving all 4 extremities when sedation paused LABS: Results from last 7 days Lab Units 08/04/25 0145 WHITE BLOOD CELL COUNT Thou/uL 12.9* HEMOGLOBIN g/dL 9.9* HEMATOCRIT % 31.9* PLATELET COUNT Thou/uL 510* NEUTROS PCT % 73.7 LYMPHS PCT % 18.1 MONOS PCT % 7.2 EOS PCT % 0.5 BASOS PCT % 0.2 Recent Labs 08/04/25 014 LABPROT 11.2 INR 1.0 Recent Labs 08/04/2514408/04/25 0304 NA 136 -- K 3.9 -- CL 107 -- CO2 19* -- ANIONGAP 10 -- BUN 7* -- CREAT 0.70 -- LACTIC 1.8 1.5 Recent Labs 08/04/25 014 AST 137* ALT 140* ALKPHOS 585* BILITOT 2.6* BILIDIR 2.2* ALBUMIN 3.0* PROT 6.7 No results for input(s): PHA , PCO2 , PO2 , HCO3 in the last 72 hours. Recent Cultures: Culture Date Value Ref Range Status 11/20/2021 Sterile after 5 days Final IMAGING: No results found. Kathleen Hinson MD 08/04/2025 6:44 AM [1] No Known Allergies [2] Current Facility-Administered Medications Medication Dose Route Frequency Provider Last Rate Last Admin jawgnpwllrl-dzauecwafobwg-rteebbtfo (BIKTARVY) 50-200-25 mg tablet 1 tablet 1 tablet Feeding Tube Daily Jeff Bah APRN bisacodyl (DULCOLAX) suppository 10 mg 10 mg Rectal Daily PRN Kathleen Hinson MD cefTRIAXone (ROCEPHIN) 1 g in sodium chloride-MBP (NS) 100 mL IVPB-MBP 1 g Intravenous Q24H Jose Araujo MD 200 mL/hr at 08/04/25 0542 1 g at 08/04/25 0542 chlorhexidine gluconate 2 % wipes - daily CHG application Topical Daily Jeff Bah APRN glucose (GLUTOSE 15) 40 % oral gel 37.5 g 1 Tube Oral Q15 Min PRN Jeff Bah APRN Or glucose (GLUTOSE 15) 40 % oral gel 75 g 2 Tube Oral Q15 Min PRN Jeff Bah APRN Or dextrose 50 % solution 12.5 g 12.5 g Intravenous Q15 Min PRN Jeff Bah APRN Or dextrose 50 % solution 25 g 25 g Intravenous Q15 Min PRN Jeff S [place], ORGANIZATIONAL EFFECTIVENESS DIRECTOR Or glucagon (GLUCAGEN) injection 1 mg 1 mg Intramuscular Daily PRN Jeff Hawthorneer, ORGANIZATIONAL EFFECTIVENESS DIRECTOR fentaNYL (SUBLIMAZE) 100 mcg/2 mL injection 25 mcg 25 mcg Intravenous Q2H PRN Jeff Hawthorneer, ORGANIZATIONAL EFFECTIVENESS DIRECTOR fentaNYL (SUBLIMAZE) IV infusion 1000 mcg in 100 mL NS (10 mcg/mL) (premix) 50 mcg/hr Intravenous Continuous Arpan Cline MD 5 mL/hr at 08/04/25 0600 50 mcg/hr at 08/04/25 0600 folic acid injection 1 mg/0.2 mL syringe (premix) 1 mg Intravenous Daily Jeff Hawthorneer, ORGANIZATIONAL EFFECTIVENESS DIRECTOR insulin lispro (HumaLOG/ADMELOG) 100 units/mL injection 1-6 Units 1-6 Units Subcutaneous Q4H DEVON Jeff Bah, ORGANIZATIONAL EFFECTIVENESS DIRECTOR lactulose (ENULOSE) 10 gm/15 mL solution 20 g 30 mL Feeding Tube Q4H PRN Jeff Bah, ORGANIZATIONAL EFFECTIVENESS DIRECTOR metroNIDAZOLE (FLAGYL) IVPB 500 mg in 100 mL NS (premix) 500 mg Intravenous Q12H Kathleen Hinson MD midazolam (VERSED) IV infusion 100 mg in 100 mL NS (premix) 2 mg/hr Intravenous Continuous Arpan Cline MD 2 mL/hr at 08/04/25 0600 2 mg/hr at 08/04/25 0600 multivitamin with minerals (CEROVITE) liquid 15 mL 15 mL Feeding Tube Daily Jeff Hawthorneer, ORGANIZATIONAL EFFECTIVENESS DIRECTOR naloxone (NARCAN) 0.4 mg/mL injection 0.4 mg 0.4 mg Intravenous Q5 Min PRN Kathleen Hinson MD propofol (diPRIvan) 1000 MG/100ML injection 5-50 mcg/kg/min (Order-Specific) Intravenous Titrated Arpan Cline MD 21 mL/hr at 08/04/25 0600 50 mcg/kg/min at 08/04/25 0600 senna-docusate (SENNA-S) 8.6-50 MG tablet 2 tablet 2 tablet Oral Nightly Jeff Bah, ORGANIZATIONAL EFFECTIVENESS DIRECTOR thiamine (VITAMIN B-1) injection 100 mg 100 mg Intravenous Daily Jeff Hawthorneer, ORGANIZATIONAL EFFECTIVENESS DIRECTOR valproate (DEPACON) 1,000 mg in sodium chloride (NS) 0.9 % 100 mL IVPB 1,000 mg Intravenous Q12H Kathleen Hinson MD Cosigned by Alberto Cross MD at 08/04/2025 10:11 AM EST Associated attestation - Alberto Cross MD - 08/04/2025 10:11 AM EST I did not interview or examine the patient; I discussed the case with Dr. Hinson and agree with thehistory, exam, assessment and plan as detailed below. Alberto Cross MD Division of Pulmonary, Critical Care and Sleep Medicine [facility] documented in this encounter Consult Notes * Yani Han, ELEONORA - 08/04/2025 12:06 PM ESTAssociated Order(s): IP CONSULT TO NUTRITION SERVICES [facility] Nutrition Note Visit Type: initial assessment Reason for Dietitian Visit: tube feeding, consult. Reason for Admission: Seizure (HCC) Pertinent Medical History: IVDU, seizure disorder, HIV Nutrition Diagnosis: Intake: Inadequate oral intake related to acute illness as evidenced by NPO Diagnosis Status: . Interventions/Recommendations: Food & Nutrient Delivery: While on propofol: Osmolite 1.2 at 10 mL/hr, advance 10 mL q 4 hours until goal of 45 mL/hr is reached Provide prosource TF 1.5oz BID (1820 kcal with propofol, 89g protein, 886 mL FW, 170g CHO) Minimum 30 mL FW q 4 hours Once off propofol, Increase goal rate to: OSMOLITE 1.2 at 60 mL/hr with decrease in prosource TF to1.5oz daily (1768 kcal, 91g protein, 1181 ml free water, 227g CHO) Monitor EN tolerance, consider elemental low fat tube feed if intolerance: Abdominal distention, diarrhea, steatorhea, nausea/vomiting Monitor BG, labs, lytes with repletion and weight weekly MVI with minerals, folic acid and thiamine per team Consider Iron supplementation as per team Nutrition Education/Counseling: N/a Coordination of Nutrition Care: Collaboration with Kenneth NELSON Nutrition Plan for Discharge/Transfer: To be determined. Nutrition Assessment: Pt intubated, concern for status epilepticus and acute cholecystitis. Pt pending surgery plan. TF recs above. Typical Food & Fluid Intake: unable to obtain Factors Affecting Nutritional Intake: respiratory difficulty/therapies Food Related Allergies: none Cultural/Ethnic Preferences: None noted/reported. Food Insecurity Concerns: Weight: Wt Readings from Last 1 Encounters: 08/04/25 70.5 kg (155 lb 6.8 oz) Nutrition Physical Findings: Physical Appearance: on ventilator support (no overt loss of muscle or fat) Muscle Wasting: Mild Depletion: Moderate Depletion: Severe Depletion: Adipose Wasting: Mild Depletion: Moderate Depletion: Severe Depletion: Gastrointestinal: (abdominal pain, ?cholecystitis) Enteral Access Devices: Oral/Mouth Cavity: Skin: Wound Documentation Reviewed: yes Labs: BUN 7, T bili and LFTs high, Iron low 24, BG 45- 121 mg/dL, H/H 9.9/31.9, WBC high Diagnostics: reviewed Medications: propofol 16.8 ml/hr, fentanyl, D5 NS 75 mL/hr, thiamine, folic acid, Cerovite, senna, bactrim, protonix, flagyl, rocephin Estimated Daily Energy and Protein Needs: Energy Needs: 1763 - 1763 Kcals/day (25 - 25 Kcals/kg) based on 70.5 kg (155 lb 6.8 oz) Protein Needs: 84 - 105 gm, (1.2 - 1.5g/kg) based on 70.3 kg (155 lb) Fluids: 1800ml based on BLOOD SPLATTER ANALYST Method Current Diet: Diet NPO Diet NPO; Meds Intake Compared to Estimated Needs: Energy Intake: other (see comments) (NPO) x other (see comments) (<1 day) days 444 kcal propofol, 306 kcal from IV fluids Protein Intake: other (see comments) x other (see comments) days Fluid Intake: other (see comments) (on IV fluids) Educational Needs Assessment: Assessed patient's learning needs. Barriers to Education: Clinical Condition Monitoring & Evaluation: Goals to be Achieved by Next Assessment: Tolerate EN Receive at least 80% of recommended EN volume Monitoring/Evaluation: RD/DTR will monitor and evaluate nutrition plan of care and provide additional interventions and recommendations based on nutrition/clinical status. Sign: Yani Han RD 08/04/2025 1:13 PM * Brigitte Puentes MD - 08/04/2025 8:51 AM EST [facility] ID Consult Note Assessment: 25 y.o. male with a past medical history of polysubstance abuse with IVDU, seizure disorder, HIV, noncompliant with medications who was transferred from [facility] due to concern for status epilepticus status post intubation as well as acute cholecystitis. ID was consulted for HIV management.I was able to get some additional information about his HIV history. While he is prescribed Biktarvy, he is not taking it and last filled his prescription in 2021. His CD4 count in January was 88 (5%), consistent with medication noncompliance and AIDS. Given this, I would not give him any Biktarvy right now. Frequently stopping and starting ART places him at high risk for the development of drug resistance, making it harder to treat HIV in the future. With a CD4 count this low, I would start him onBactrim for PJP and toxoplasmosis prophylaxis. Although his CT head at [facility] did not show any mass occupying lesions or acute findings, I would check an MRI brain for changes concerning for OIs such as PML. I would also get an LP, sending CSF for cell count with differential, glucose, protein, cryptococcal antigen, and M/E PCR panel in order to assess for cryptococcal meningitis. Plan: 1. HIV/AIDS, CD4 count in January - Hold Biktarvy given longstanding medication noncompliance and need for further workup (I discontinued) - Start Bactrim 1 DS tablet daily for PJP and toxoplasmosis prophylaxis 2. Status epilepticus - Check toxoplasma IgG - Check MRI brain for changes concerning for IMMUNOLOGY TEACHER OIs - Obtain LP, sending CSF for cell count with differential, glucose, protein, cryptococcal antigen, M/E PCR panel to assess for cryptococcal meningitis 3. Concern for cholecystitis - Agree with plans for MRCP by GI - Continue ceftriaxone and metronidazole for now Time spent on chart review, [id number] discussion with ICU team, calling [facility] [place], exam with patient, and documentation: 90 minutes Requested by: Gerald Vieira MD Reason for Consult: HIV, noncompliant with medications History provided by: Chart review, external records, discussion with outside providers Admitting MD: Alberto Cross MD PCP: Conversion ProviderMD Code Status: Full Code History of Present Illness: Patient is a 25 y.o. male with a past medical history of polysubstance abuse with IVDU, seizure disorder, HIV, noncompliant with medications who was transferred from [facility] due to concern for status epilepticus status post intubation as well as acute cholecystitis. ID was consulted for HIV management. Mr. Cramer presented to [facility] yesterday with abdominal pain in the ED there, he had seizure-like activity. Per the ED notes, this is a frequent occurrence, sometimes representing pseudoseizures but sometimes with concern for true seizures. Ultimately, he was given phenytoin and intubated given concern for status epilepticus. His labs showed a WBC count of 14.1, platelets of 671, creatinine of 0.98, lactate 3.5, total bilirubin 2.8, AST 169, ALT 169, alkaline phosphatase 721, U/A unremarkable. CT head with no acute findings. CT abdomen/pelviswith distended gallbladder with slight pericholecystic fluid with dilated CBD, no cholelithiasis orcholedocholithiasis. Given the concern for cholecystitis he was given a dose of ceftriaxone. [facility] Here, he was evaluated by general surgery, who recommended HIDA scan for further evaluation for cholecystitis. He was placed on ceftriaxone and metronidazole for possible cholecystitis and Biktarvy was ordered. I called [facility], where he was recently hospitalized in June, to get more information about his HIV status. He has HIV, but is noncompliant with Biktarvy and last filled his medications in 2021. His last CD4 count in January was 88 (5%). Past Medical History: Past Surgical History: HIV/AIDS, not taking ART Polysubstance abuse and IVDU Seizure disorder Past Surgical History: Procedure Laterality Date ANGIOPLASTY RENAL/VISCERAL N/A 11/17/2021 Procedure: ANGIOPLASTY RENAL/VISCERAL; Surgeon: Agustina Bradley MD; Location: [facility]; Service: Interventional Radiology; Laterality: N/A; SIGMOIDOSCOPY FLEXIBLE N/A 11/17/2021 Procedure: SIGMOIDOSCOPY FLEXIBLE; Surgeon: Abril Machado MD; Location: GI Endoscopy; Service: Gastroenterology; Laterality: N/A; SIGMOIDOSCOPY FLEXIBLE N/A 11/19/2021 Procedure: SIGMOIDOSCOPY FLEXIBLE; Surgeon: Abril Machado MD; Location: GI Endoscopy; Service: Gastroenterology; Laterality: N/A; Family / Social History: Social History: Unable to obtain from patient as he is intubated and sedated. Reportedly, he is active polysubstance abuse, including marijuana and methamphetamine use and does inject. Allergies: Allergies[1] Scheduled Medications: ahltlnhhdcd-bhnxetgxgvwzq-suvmeyotl, 1 tablet, Feeding Tube, Daily cefTRIAXone, 1 g, Intravenous, Q24H chlorhexidine gluconate, , Topical, Daily enoxaparin (LOVENOX) injection for prophylaxis, 40 mg, Subcutaneous, Q24H DEVON folic acid, 1 mg, Intravenous, Daily insulin lispro, 1-6 Units, Subcutaneous, Q4H DEVON metroNIDAZOLE, 500 mg, Intravenous, Q12H multivitamin with minerals, 15 mL, Feeding Tube, Daily PANTOprazole, 40 mg, Intravenous, Daily senna-docusate, 2 tablet, Oral, Nightly thiamine, 100 mg, Intravenous, Daily valproate sodium, 1,000 mg, Intravenous, Q12H lactated ringers, 75 mL/hr, Last Rate: 75 mL/hr (08/04/25 0810) fentaNYL, 50 mcg/hr, Last Rate: 50 mcg/hr (08/04/25 0700) midazolam (VERSED) IV infusion/drip, 2 mg/hr, Last Rate: 2 mg/hr (08/04/25 07) propofol, 5-50 mcg/kg/min (Order-Specific), Last Rate: 50 mcg/kg/min (08/04/25 07) Antibiotic History: Ceftriaxone (08/04-) Metronidazole (08/04-) Biktarvy Review of Systems: Unable to obtain as patient is intubated and sedated Vitals: Vitals: 08/04/25 0530 08/04/25 0600 08/04/25 0700 08/04/25 0758 BP: (!) 135/93 129/79 130/86 BP Location: Left arm Patient Position: Lying Pulse: 79 86 89 91 Resp: 16 14 20 Temp: 97.9 ??F (36.6 ??C) TempSrc: Tympanic SpO2: 100% 100% 100% 100% Weight: Physical Exam: Gen: Intubated and sedated Eyes: Pupils sluggishly reactive b/l HENT: ET tube in place CV: Normal S1 and S2, no m/r/g Resp: Coarse breath sounds anteriorly, no wheezes or crackles GI: Normoactive BS, soft, no withdrawal or grimace to palpation : Solorio catheter in place Skin: No rashes Neuro: Sedated, non-responsive Lines: PIV's Labs: I reviewed the labs. Pertinent labs: - CBC: Results from last 7 days Lab Units 08/04/25 0145 WHITE BLOOD CELL COUNT Thou/uL 12.9* HEMOGLOBIN g/dL 9.9* HEMATOCRIT % 31.9* PLATELET COUNT Thou/uL 510* NEUTROS PCT % 73.7 LYMPHS PCT % 18.1 MONOS PCT % 7.2 EOS PCT % 0.5 BASOS PCT % 0.2 - Chem: Lab Results Component Value Date CALCIUM 8.2 (L) 08/04/2025 NA 136 08/04/2025 K 3.9 08/04/2025 CO2 24 08/04/2025 CL 107 08/04/2025 BUN 7 (L) 08/04/2025 CREAT 0.70 08/04/2025 - LFTs: Lab Results Component Value Date ALT 140 (H) 08/04/2025 AST 137 (H) 08/04/2025 ALKPHOS 585 (H) 08/04/2025 BILITOT 2.6 (H) 08/04/2025 Microbiology: 08/04: Blood-no growth to date [place]: Influenza/RSV/COVID 19 PCR negative Imaging: XR Chest 1 view-Portable Result Date: 08/04/2025 * ETT tip approximately 1 cm above the ming. * Enteric tube tip and side-port overlies the stomach. This critical result was communicated with the ordering provider Deepti Wilkerson APRN by direct secure messaging via [employer] at 08/04/2025 7:16 AM Interpreted by: Yunier Ochoa MD Radiology ResidentI personally reviewed the images and the resident's preliminary report and AGREE with the report asit is now presented ([email or web address]). US Abdomen-Limited Result Date: 08/04/2025 1. Gallbladder wall thickening with intraluminal cholelithiasis suspicious for acute cholecystitis.2. Nondilated common bile duct with wall thickening, which can be seen with biliary infectious/inflammatory processes (cholangitis). Clinical correlation advised. 3. Hepatomegaly. Interpreted by: Yunier Ochoa MD Paper Box Cutter I personally reviewed the images and the resident's preliminary report and AGREE with the report as it is now presented ([email or web address]). XR Chest 1 view-Portable Addendum Date: 08/04/2025 ADDENDUM #1 This results regarding enteric tube positioning was conveyed with Dr. Arpan Cline MD by closed looped [employer] communication at 08/04/2025 4:39 AM and it was ascertained that the content and urgency of the report was understood at the time of direct communication. Result Date: 08/04/2025 EXAMINATION: XR CHEST CLINICAL INFORMATION: ETT confirmation COMPARISON: Chest radiograph 11/22/2021 TECHNIQUE: Frontal view of the chest was obtained. FINDINGS: An endotracheal tube terminates 2.2 cm superior to the ming. Enteric tube terminates projection with the superior thoracic trachea. Normal appearance of the cardiomediastinal structures. No effusions or pneumothoraces. Normal pulmonary vasculature. No pulmonary consolidation. No skeletal abnormalities identified. *Enteric tube terminating within the proximal thoracic esophagus. *Endotracheal tube terminating 2.2 cm superior to the ming. *No cardiopulmonary abnormalities. Problem List: Principal Problem: Seizure (HCC) (POA: Yes) Resolved Problems: Brigitte Puentes MD, MPH Division of Infectious Diseases Available on [employer] 08/04/2025 8:52 AM [1] No Known Allergies * Saroj Pedraza MD - 08/04/2025 1:31 AM EST Surgical Consult Note Date of Consult: 08/04/2025 Patient's Primary Care Provider: Divya Saul MD Provider Requesting Consult: Alberto Cross MD Reason for Consultation: ? Cholecystitis Name: Everardo Cramer Age: 25 y.o. Sex: male Assessment & Plan Assessment Everardo Cramer is a 25 y.o. M with PMHx remarkable for HIV (not compliant with biktarvy), marijuana, PNES and polysubstance use, depression and no known past surgical history currently presenting asa transfer from outside hospital. Patient transferred after being intubated s/p seizure-like activity with posturing and incontinence of stool. Patient with leukocytosis as well as elevated bilirubin. Patient currently intubated and unable to assess tenderness however no grimacing on deep palpation. Recommend HIDA scan to better evaluate for possible cholecystitis. Plan -no acute surgical intervention -Appreciate care per ICU team -Trend LFTs -Recommend HIDA scan -Would recommend GI involvement for evaluation of elevated bilirubin - Discussed with chief resident Dr. Hu, and relayed to attending Dr. Barnes; please call [facility] surgery with any questions or concerns Subjective Chief Complaint Abdominal pain History of Present Illness Everardo Cramer is a 25 y.o. M with PMHx remarkable for HIV, marijuana and polysubstance use, depression and no known past surgical history currently presenting as a transfer from outside hospital. Patient transferred after being intubated s/p seizure-like activity with posturing and incontinence of stool. WBC 12.99, H/H .9/31.9, AST/ALT/Alk Phos 137/140/43, T. bili 2.6, D bili 2.2. At outside hospital, UTOX positive for benzodiazepines and amphetamines. CT from OSH with mild GB dilation, Abdominal Surgical History includes Last PO intake: unknown Review of Systems Review of Systems Unable to perform ROS: Intubated Objective Past Medical History: No past medical history on file. Past Surgical History: Past Surgical History: Procedure Laterality Date ANGIOPLASTY RENAL/VISCERAL N/A 11/17/2021 Procedure: ANGIOPLASTY RENAL/VISCERAL; Surgeon: Agustina Bradley MD; Location: IR; Service: Interventional Radiology; Laterality: N/A; SIGMOIDOSCOPY FLEXIBLE N/A 11/17/2021 Procedure: SIGMOIDOSCOPY FLEXIBLE; Surgeon: Abril Machado MD; Location: GI Endoscopy; Service: Gastroenterology; Laterality: N/A; SIGMOIDOSCOPY FLEXIBLE N/A 11/19/2021 Procedure: SIGMOIDOSCOPY FLEXIBLE; Surgeon: Abril Machado MD; Location: GI Endoscopy; Service: Gastroenterology; Laterality: N/A; Past Family History: No family history on file. Past Social History: Tobacco Use: Y Alcohol: Y Illicit Substances: Y Home Medications: Prescriptions Prior to Admission[1] Allergies: Allergies[2] Physical Exam: BP 118/69 Pulse 86 Temp 97.4 ??F (36.3 ??C) (Tympanic) Resp 16 SpO2 100% Physical Exam Constitutional: Comments: Intubated and sedated Cardiovascular: Rate and Rhythm: Regular rhythm. Pulses: Normal pulses. Abdominal: General: There is no distension. Palpations: Abdomen is soft. Comments: Abdomen is soft, nondistended. Unable to assess tenderness Relevant data reviewed: Lab Results Component Value Date WBC 6.5 11/25/2021 HGB 9.8 (L) 11/25/2021 HCT 29.3 (L) 11/25/2021 MCV 87 11/25/2021 PLT 334 11/25/2021 Lab Results Component Value Date GLUC 123 (H) 08/04/2025 CALCIUM 8.1 (L) 11/25/2021 NA 141 11/25/2021 K 3.9 11/25/2021 CO2 23 11/25/2021 CL 109 (H) 11/25/2021 BUN 3 (L) 11/25/2021 CREAT 0.6 11/25/2021 Imaging Studies: I have personally reviewed the images. CT Head Archive for Reference Only Result Date: 08/04/2025 This study has been auto finalized and does not contain a result. CR Chest Archive for Reference only Result Date: 08/04/2025 This study has been auto finalized and does not contain a result. CT Abdomen Archive for Reference Only Result Date: 08/04/2025 This study has been auto finalized and does not contain a result. Saroj Pedraza MD PGY-3, General Surgery 08/04/25 1:32 AM [1] (Not in a hospital admission) [2] No Known Allergies Cosigned by Reji Barnes MD at 08/04/2025 6:05 AM EST Associated attestation - Reji Barnes MD - 08/04/2025 6:05 AM EST I personally saw and evaluated the patient below. I have read and reviewed the below note and agreewith the note as written. While mental status precludes good physical exam, what we can examine is not concerning from an abdominal standpoint. Would absolutely recommend a HIDA scan and if HIDA is positive for cholecystitis a percutaneous cholecystostomy tube. Remainder of plans as below documented in this encounter ED Notes * Tran Akhtar RN - 08/04/2025 3:12 AM EST Pt resting in stretcher NAD. Labs obtained at this time. Respirations assisted mechanically. NSR onthe monitor. Plan for ICU bed. Tran Akhtar RN 08/04/25 0419 * Tran Akhtar RN - 08/04/2025 1:19 AM EST EKG obtained at this time. Tran Akhtar RN 08/04/25 0119 * Tran Akhtar RN - 08/04/2025 12:58 AM EST Pt to ED from OSH. Pt initially presented to OSH with abd pain. Seizure at OSH with stool and urine incontinence. PT intubated at OSH for airway protection. 7.5 ET 27 at the lip. Pt has had thee episodes of tensing despite sedation. Dx with colitis and given abx at OSH. Arrives intubate. All appropriate staff bedside. Tran Akhtar RN 08/04/25 0418 documented in this encounter Miscellaneous Notes * Case Coordination-Payor Communication - Babs Huitron RN - 08/04/2025 9:26 AM EST Admission Note Type: (Inpt/Obsv): Inpatient Date of Admission: 08/04/2025 Admitting Dx: Seizure (HCC) [R56.9] PMH: seizure HPI: transferred from [facility] with concern for status epilepticus s/p intubation and acute cholecystitis. Vitals: Vitals: 08/04/25 0454 08/04/25 0459 08/04/25 0500 08/04/25 0515 BP: (!) 142/95 (!) 142/95 (!) 156/103 Pulse: 88 81 86 Resp: 18 Temp: SpO2: 100% 100% 100% 08/04/25 0530 08/04/25 0600 08/04/25 0700 08/04/25 0758 BP: (!) 135/93 129/79 130/86 Pulse: 79 86 89 91 Resp: 16 14 20 Temp: 97.9 ??F (36.6 ??C) SpO2: 100% 100% 100% 100% Labs/Diagnostics: 08/04/25 01:45 White Blood Cell Count 12.9 (H) Red Blood Cell Count 4.04 (L) Hemoglobin 9.9 (L) Hematocrit 31.9 (L) MCV 79 (L) MCH 24.5 (L) RDW 20.0 (H) Platelet Count 510 (H) Abs Neutrophils Auto 9.48 (H) CO2, POC 19 (L) BUN 7 (L) Glucose 119 (H) Calcium 8.2 (L) Albumin 3.0 (L) A/G Ratio 0.8 (L) Bilirubin Total 2.6 (H) Bilirubin Direct 2.2 (H) Aspartate Aminotrans (AST/SGOT) 137 (H) Alanine Aminotrans (ALT) 140 (H) Alkaline Phosphatase 585 (H) Orders/Treatment Plan: NEUROLOGY: - Sedation: Propofol 50 mcg/KG/minute, Midazolam 2 mg/hr - Analgesia: Fentanyl Seizures like activity Patient reportedly had several seizure-like activities that were associated with stool and urine incontinence at [facility] for which he was treated with IV Keppra, phenytoin, and Valium. CT head was negative for acute intracranial findings. No previous EEG documented in the chart. Seems that the patient has been on Depakote for seizures and psychiatric disorders. Breakthrough seizure could be secondaryto to medication noncompliance and/or infection. -Obtain Depakote level -Restart 1g depakote BID -Neurology consulted -STAT EEG ordered -Can lighten drips when confirmed not to be seizing on EEG Behavioral/Sedation scales CAM-ICU Delirium Present: Positive Doan Agitation Sedation Scale (RASS) / Modified RASS: -1-->Wakes easily, drowsy RESPIRATORY Intubated for airway protection Ventilator Start 08/04/25 0120 (Active) Number of days: 0 Ventilation Mode (Drager): VC-AC (invasive) (08/04 515) Rate Set (breaths/min) (Drager): 14 (08/04 515) Tidal Volume Set (mL) (Drager): 450 (08/04 515) Oxygen Concentration (%) (Drager): 40 (08/04 515) PEEP (cmH2O) (Drager): 6 (08/04 515) CARDIOVASCULAR - BP 115/69; HR 86 No active issue GASTROENTEROLOGY Acute cholecystitis Patient has history of gallstone, initially presented to [facility] for abdominal pain CT abdomen pelvis showed signs of acute cholecystitis. WBC of 12.9, total bilirubin of 2.6, direct bilirubin 2.2, AST 137, ALT 140, ALP 585. Surgery reconsulted for possible invention. -N.p.o. for now -Surgery consulted, appreciate recs, NTD -RUQ ultrasound - Ceftriaxone+flagyl -GI consult in the AM -LFTs in the AM, trend Nutrition Diet/Nutrition Received: NPO Diet NPO NEPHROLOGY No active issues Intake & Output Intake/Output Summary (Last 24 hours) at 08/04/2025 0644 Last data filed at 08/04/2025 0600 Gross per 24 hour Intake 360.55 ml Output 700 ml Net -339.45 ml ENDOCRINOLOGY No active issues -Q6 fs while NPO HEMATOLOGY/ ONCOLOGY Anemia Baseline hemoglobin appears to be around 9.5. Presentation hemoglobin is 9.9. - Daily CBC Medications: Rocephin 1 g IV, folic acid 1 mg IV, keppra 3000 mg IV once, flagyl 500 mg IV once, depacon 1000 mgIV, LR @ 75 mL/hr, fentanyl gtt, versed gtt, propofol gtt Bed Type: ICU Babs Huitron RN 08/04/2025 9:28 AM * Plan of Care - Kristan Watts, OUTPATIENT SCHEDULER - 08/04/2025 6:51 AM EST Problem: Adult Inpatient Plan of Care Goal: Plan of Care Review Flowsheets (Taken 08/04/2025 0650) Outcome Evaluation: Pt recieved intubated placed on VC/AC, plan of care ongoing. Kristan Watts 08/04/2025 6:51 AM documented in this encounter Plan of Treatment Pending Results Name Type Priority Associated Diagnoses Date /Time Blood Culture Microbiology STAT 1:45 AM EST ECG 12 lead ECG STAT 08/04/2025 1: 19 AM EST Valproic Acid Level, Free Lab STAT 08/04/2025 3:30 AM EST Syphilis Antibodies, reflex to RPR Titer Lab Routine 08/04/2025 7:00 AM EST CD4/CD8 Cell Count with Ratio Lab Routine 08/04/2025 7:00 AM EST Hepatitis Panel, Acute Lab Routine 7:00 AM EST Hemoglobin A1c with Estimated Average Glucose Lab Routine 08/04/2025 7:00 AM EST Toxoplasma IgG Reflex to IgM Lab Routine 08/04/2025 3:30 AM EST Valproic Acid Level, Total Lab Routine 08/04/2025 7:00 AM EST Scheduled Orders Name Type Priority Associated Diagnoses Order Schedule Ventilator, Protocol (HH) Respiratory Care STAT Continuous unti l discontinued starting 08/04/2025 Valproic Acid Level, Free Lab Routine Once for 1 Occurrences starting 08/04/2025 until 08/04/2025 Syphilis Antibodies, reflex to RPR Titer Lab Routine Once for 1 Occurrences starting 08/04/2025 until 08/04/2025 CD4/CD8 Cell Count with Ratio Lab Routine Once for 1 Occurrences starting 08/04/2025 until 08/04/2025 Hepatitis Panel, Acute Lab Routine Once for 1 Occurrences starting 08/04/2025 until 08/04/2025 Hemoglobin A1c with Estimated Average Glucose Lab Routine Once for 1 Occurrences starting 08/04/2025 until 08/04/2025 NM Hepatobiliary Imaging Routine One time imaging One time imaging for 1 Occurrences starting 08/04/2025 until 08/04/2025 Complete Blood Count WITHOUT Differential - Early AM Lab Routine *Early AM Draw (5:30AM) for 1 Occurrences starting 08/05/2025 until 08/05/2025 Basic Metabolic Panel (Early AM) Lab Routine *Early AM Draw (5:30AM) for 1 Occurrences starting 08/05/2025 until 08/05/2025 Magnesium (Early AM) Lab Routine *Ear ly AM Draw (5:30AM) for 1 Occurrences starting 08/05/2025 until 08/05/2025 Hepatic Function Panel (Routine) Lab Routine *Early AM Draw (5:30AM) for 1 Occurrences starting 08/05/2025 until 08/05/2025 EEG - Long-term monitoring Neurology Routine Daily LTM orders (7am) until discontinued starting 08/04/2025 Magnesium Lab Routine Once for 1 Occurrences starting 08/05/2025 until 08/05/2025 COMPLETE BLOOD COUNT, WITHOUT DIFFERENTIAL Lab Routine Once for 1 Occurrences starting 08/05/2025 until 08/05/2025 Phosphorus Lab Routine Once for 1 Occurrences starting 08/05/2025 until 08/05/2025 Comprehensive Metabolic Panel Lab Routine Once for 1 Occurrences starting 08/05/2025 until 08/05/2025 Toxoplasma IgG Reflex to IgM Lab Routine Once for 1 Occurrences starting 08/04/2025 until 08/04/2025 MRI Brain w w/o contrast Imaging Routine One time imaging One time imaging for 1 Occurrences starting 08/04/2025 until 08/04/2025 Valproic Acid Level, Total Lab Routine Once for 1 Occurrences starting 08/04/2025 until 08/04/2025 documented as of this encounter Procedures * The patient is currently admitted. The information in this section might not be complete until the patient is discharged. Procedure Name Priority Date/Time Associated Diagnosis Comments POCT GLUCOSE, FINGERSTICK (CHARGE) Routine 08/04/2025 12:24 PM EST POCT GLUCOSE, FINGERSTICK (CHARGE) Routine 08/04/2025 11:58 AM EST POCT GLUCOSE, FINGERSTICK (CHARGE) Routine 08/04/2025 11:55 AM EST POCT GLUCOSE, FINGERSTICK (CHARGE) Routine 08/04/2025 7:51 AM EST XR CHEST 1 VIEW-PORTABLE STAT 08/04/2025 7:14 AM EST IRON AND TOTAL IRON BINDING CAPACITY Routine 08/04/2025 7:00 AM EST FERRITIN Routine 08/04/2025 7:00 AM EST US ABDOMEN-LIMITED STAT 08/04/2025 6: 17 AM EST POCT GLUCOSE, FINGERSTICK (CHARGE) Routine 08/04/2025 5:42 AM EST BLOOD GAS WITH COOXIMETRY, ARTERIAL Routine 08/04/2025 5:40 AM EST LACTIC ACID, PLASMA Sepsis (ED Only) 08/04/2025 3:04 AM EST BLOOD CULTURE (HOSP LAB) STAT 08/04/2025 1:45 AM EST COMPLETE BLOOD COUNT, WITH DIFFERENTIAL STAT 08/04/2025 1:45 AM EST PROTIME-INR STAT 08/04/2025 1:45 AM EST MAGNESIUM STAT 08/04/2025 1:45 AM EST LIPASE STAT 08/04/2025 1:45 AM EST LACTIC ACID, PLASMA Sepsis (ED Only) 08/04/2025 1:45 AM EST HEPATIC FUNCTION PANEL STAT 08/04/2025 1:45 AM EST BASIC METABOLIC PANEL STAT 08/04/2025 1:45 AM EST TYPE AND SCREEN STAT 08/04/2025 1:36 AM EST POCT GLUCOSE, FINGERSTICK (CHARGE) Routine 08/04/2025 1:21 AM EST ECG 12-LEAD STAT 08/04/2025 1:19 AM EST Procedure Note - Ashleigh Vazquez - 08/04/2025 1:19 AM ESTThis note is in progress. Normal sinus rhythm Normal ECG When compared with ECG of 25-Nov-2021 07:08, No significant change was found XR CHEST 1 VIEW-PORTABLE STAT 08/04/2025 1:16 AM EST documented in this encounter Results * (ABNORMAL) POCT Glucose, Fingerstick (08/04/2025 12:24 PM EST) POC Glucose 121(H) 65 - 99 mg/dL 08/04/2025 12:31 PM EST Blood specimen / Unknown 08/04/2025 12:24 PM EST 08/04/2025 12:31 PM EST Juani De Jesus MD POINT OF CARE TEST ORDERABLES Fi nal Result Performing Organization Address [facility] Co de Phone Number HOSPITAL LAB See Below * (ABNORMAL) POCT Glucose, Fingerstick (08/04/2025 11:58 AM EST) POC Glucose 60(L) 65 - 99 mg/dL 08/04/2025 11:59 AM EST Blood specimen / Unknown 08/04/2025 11:58 AM EST 08/04/2025 11:59 AM EST Juani De Jesus MD POINT OF CARE TEST ORDERABLES Fi nal Result Performing Organization Address [facility]/State/ZIP Co de Phone Number HOSPITAL LAB See Below * (ABNORMAL) POCT Glucose, Fingerstick (08/04/2025 11:55 AM EST) POC Glucose 45(L) 65 - 99 mg/dL 08/04/2025 11:59 AM EST Blood specimen / Unknown 08/04/2025 11:55 AM EST 08/04/2025 11:59 AM EST us Juani De Jesus MD POINT OF CARE TEST ORDERABLES Fi nal Result [facility] LAB See Below * POCT Glucose, Fingerstick (08/04/2025 7:51 AM EST) POC Glucose 75 65 - 99 mg/dL 08/04/2025 7:57 AM EST Blood specimen / Unknown 08/04/2025 7:51 AM EST 08/04/2025 7:56 AM EST us Juani De Jesus MD POINT OF CARE TEST ORDERABLES Fi nal Result Performing Organization Address [facility] Co va Phone Number [facility] LAB See Below * XR Chest 1 view-Portable (08/04/2025 7:14 AM EST) Anatomical Region Laterality Modality Chest Computed Radiogr aphy 08/04/2025 6:59 AM EST Impressions 08/04/2025 7:32 AM EST * ETT tip approximately 1 cm above the ming. * Enteric tube tip and side-port overlies the stomach. This critical result was communicated with the ordering provider Deepti Wilkerson APRN by direct secure messaging via [employer] at 08/04/2025 7:16 AM Interpreted by: Yunier Ochoa MD Paper Box Cutter I personally reviewed the images and the resident's preliminary report and AGREE with the report as it is now presented ([email or web address]). Narrative 08/04/2025 7:32 AM EST EXAMINATION: XR CHEST CLINICAL INFORMATION: F/up advancement/replacement of OGT COMPARISON: Chest radiograph August 04, 2025 TECHNIQUE: Frontal view of the chest was obtained. FINDINGS: ETT tip approximately 1 cm above the ming. Enteric tube tip and side-port overlies the stomach.. No focal consolidation or mass. Normal pulmonary vascularity. No pleural effusion or pneumothorax. Normal cardiomediastinal silhouette. Procedure Note Ha Brito MD - 08/04/2025 EXAMINATION: XR CHEST CLINICAL INFORMATION: F/up advancement/replacement of OGT COMPARISON: Chest radiograph August 04, 2025 TECHNIQUE: Frontal view of the chest was obtained. FINDINGS: ETT tip approximately 1 cm above the ming. Enteric tube tip and side-port overlies the stomach.. No focal consolidation or mass. Normal pulmonary vascularity. No pleural effusion or pneumothorax. Normal cardiomediastinal silhouette. IMPRESSION: * ETT tip approximately 1 cm above the ming. * Enteric tube tip and side-port overlies the stomach. This critical result was communicated with the ordering provider Deepti Wilkerson APRN by direct secure messaging via [employer] at 08/04/2025 7:16 AM Interpreted by: Yunier Ochoa MD Paper Box Cutter I personally reviewed the images and the resident's preliminary report and AGREE with the report as it is now presented ([email or web address]). us Jeff Bah APRN IMG DIAGNOSTIC IMAGING ORDVirgie SKAGGS Final Result * Ferritin (08/04/2025 7:00 AM EST) Ferritin 84 30 - 400 ug/L 08/04/2025 8:17 AM [facility] Blood Blood specimen / Unknown 08/04/2025 7:00 AM EST 08/04/2025 7:55 AM EST us Jeff Bah APRN LAB BLOOD ORDERABLES Final Result [address] [address], [address] [address] * (ABNORMAL) Iron and Total Iron Binding Capacity (08/04/2025 7:00 AM EST) Iron 24(L) 53 - 167 ug/dL 08/04/2025 8:17 AM [facility] UIBC 253 112 - 346 ug/dL 08/04/2025 8:17 AM [facility] Total Iron Binding Capacity 277 100 - 400 ug/dL 08/04/2025 8:17 AM [facility] Iron Sat 9(L) 20 - 50 % 08/04/2025 8:17 AM EST [facility] Blood Blood specimen / Unknown 08/04/2025 7:00 AM EST 08/04/2025 7:55 AM EST Jeff Bah ORGANIZATIONAL EFFECTIVENESS DIRECTOR LAB BLOOD ORDERABLES Final Result Performing Organization Address City/State/[facility] Co de Phone Number [address] [address], [address] [address] * US Abdomen-Limited (08/04/2025 6:17 AM EST) Anatomical Region Laterality Modality Abdomen Ultrasound 08/04/2025 5:57 AM EST Impressions 08/04/2025 7:25 AM EST 1. Gallbladder wall thickening with intraluminal cholelithiasis suspicious for acute cholecystitis. 2. Nondilated common bile duct with wall thickening, which can be seen with biliary infectious/inflammatory processes (cholangitis). Clinical correlation advised. 3. Hepatomegaly. Interpreted by: Yunier Ochoa MD Paper Box Cutter I personally reviewed the images and the resident's preliminary report and AGREE with the report as it is now presented ([email or web address]). Narrative 08/04/2025 7:25 AM EST EXAMINATION: US ABDOMEN LIMITED (RIGHT UPPER QUADRANT) CLINICAL INFORMATION: question of cholecystitis on CT COMPARISON: CT abdomen and pelvis August 03, 2025 TECHNIQUE: Real-time imaging of the right upper quadrant abdominal viscera. Based on molding technician report, examination is limited by portable exams, and patient's intubation/sedation. FINDINGS: LIVER: Liver appears enlarged sonographically measuring 21 cm. No focal liver lesion. No intrahepatic biliary duct dilatation. GALLBLADDER: Gallbladder wall thickening measuring up to 0.4 cm. Multiple echogenic cholelithiasis intraluminally situated near the gallbladder neck. Unable to assess for sonographic East sign dilatation intubated/sedation status. COMMON BILE DUCT: Normal in caliber measuring 0.4 cm in diameter. There is wall thickening of the common bile duct. PANCREAS: The visualized pancreas is normal in appearance. RIGHT KIDNEY: No hydronephrosis. No renal calculi or focal parenchymal lesions. The kidney measures 11.4 cm in maximum dimension Procedure Note Ha Brito MD - 08/04/2025 EXAMINATION: US ABDOMEN LIMITED (RIGHT UPPER QUADRANT) CLINICAL INFORMATION: question of cholecystitis on CT COMPARISON: CT abdomen and pelvis August 03, 2025 TECHNIQUE: Real-time imaging of the right upper quadrant abdominal viscera. Based on molding technician report, examination is limited by portable exams, and patient's intubation/sedation. FINDINGS: LIVER: Liver appears enlarged sonographically measuring 21 cm. No focal liver lesion. No intrahepatic biliary duct dilatation. GALLBLADDER: Gallbladder wall thickening measuring up to 0.4 cm. Multiple echogenic cholelithiasis intraluminally situated near the gallbladder neck. Unable to assess for sonographic East sign dilatation intubated/sedation status. COMMON BILE DUCT: Normal in caliber measuring 0.4 cm in diameter. There is wall thickening of the common bile duct. PANCREAS: The visualized pancreas is normal in appearance. RIGHT KIDNEY: No hydronephrosis. No renal calculi or focal parenchymal lesions. The kidney measures 11.4 cm in maximum dimension IMPRESSION: 1. Gallbladder wall thickening with intraluminal cholelithiasis suspicious for acute cholecystitis. 2. Nondilated common bile duct with wall thickening, which can be seen with biliary infectious/inflammatory processes (cholangitis). Clinical correlation advised. 3. Hepatomegaly. Interpreted by: Yunier Ochoa MD Paper Box Cutter I personally reviewed the images and the resident's preliminary report and AGREE with the report as it is now presented ([email or web address]). us Juani De Jesus MD IMG US ORDERABLES Final Result * POCT Glucose, Fingerstick (08/04/2025 5:42 AM EST) Pathologist [facility] POC Glucose 84 65 - 99 mg/dL 08/04/2025 5:46 AM EST Blood specimen / Unknown 08/04/2025 5:42 AM EST 08/04/2025 5:46 AM EST us Juani De Jesus MD POINT OF CARE TEST ORDERABLES Fi nal Result HOSPITAL LAB See Below * (ABNORMAL) Blood Gas with Cooximetry, Arterial (08/04/2025 5:40 AM EST) Pathologist [facility] Respiratory Info VENT 40% 08/04/20 5:41 AM [facility] pH, Arterial 7.39 7.35 - 7.45 08/04/2025 7:29 AM [facility] pCO2, Arterial 38 32 - 45 mmHG 08/04/2025 7:29 AM [facility] pO2, Arterial 206(H) 75 - 95 mmHG 08/04/2025 7:29 AM [facility] CO2, Total 24 22 - 28 mmol/L 08/04/2025 7:29 AM [facility] P/F Ratio 515 08/04/2025 7:29 AM [facility] Base Deficiency 1.2 mmol/L 7:29 AM [facility] Comment:Reference Range: Neg ative 2 to Positive 3 Hemogloblin, Total 10.1(L) 13.0 - 17.7 g/dL 08/04/2025 7:29 AM [facility] O2 Saturation, Arterial 99.4(H) 94 - 97 % 08/04/2025 7:29 AM [facility] Carboxyhemoglobin 0.7 0.0 - 2.0 % 08/04/2025 7:29 AM [facility] Methemoglobin 0.9 0.4 - 1.5 % 08/04/2025 7:29 AM [facility] O2 Content, Arterial 14.4(L) 17.6 - 24.3 mL/dL 08/04/2025 7:29 AM [facility] Blood Blood specimen / Unknown 08/04/2025 5:40 AM EST 08/04/2025 7:26 AM EST Jeff Bah APRN LAB BLOOD ORDERABLES Final Result [address] [address], [address] [address] * Lactate Level X 2 (SEPSIS) (08/04/2025 3:04 AM EST) Lactic Acid 1.5 0.5 - 1.9 mmol/L 08/04/2025 3:52 AM [facility] Blood Blood specimen / Unknown 08/04/2025 3:04 AM EST 08/04/2025 3:25 AM EST us Juani De Jesus MD LAB BLOOD ORDERABLES Final Resul t Performing Organization Address City/[facility]/ZIP Co de Phone Number [address] [address], [address] [address] * (ABNORMAL) Hepatic Function Panel (08/04/2025 1:45 AM EST) Alkaline Phosphatase 585(H) 45 - 128 U/L 08/04/2025 2:23 AM [facility] Aspartate Aminotrans (AST) 137(H) 10 - 55 U/L 08/04/2025 2:23 AM [facility] Alanine Aminotrans (ALT) 140(H) 10 - 55 U/L 08/04/2025 2:23 AM [facility] Bilirubin, Total 2.6(H) 0.2 - 1.0 mg/dL 08/04/2025 2:23 AM [facility] Protein, Total 6.7 6.3 - 8.3 g/dL 08/04/2025 2:23 AM [facility] Albumin 3.0(L) 3.5 - 5.0 g/dL 08/04/2025 2:23 AM [facility] Bilirubin, Direct 2.2(H) 0 - 0.2 mg/dL 08/04/2025 2:23 AM [facility] Globulin 3.7 1.5 - 3.9 g/dL 08/04/2025 2:23 AM [facility] Albumin/Globulin Ratio 0.8(L) 1.0 - 3.0 Ratio 08/04/2025 2:23 AM [facility] Blood Blood specimen / Unknown 08/04/2025 1:45 AM EST 08/04/2025 1:58 AM EST us Juani De Jesus MD LAB BLOOD ORDERABLES [place] [address], [address] [address] * (ABNORMAL) Basic Metabolic Panel (08/04/2025 1:45 AM EST) Glucose 119(H) 65 - 99 mg/dL 08/04/2025 2:23 AM [facility] Comment:Fasting: <100 mg/dL, Non-Fasting: <200 mg/dL (ADA 2004) Blood Urea Nitrogen (BUN) 7(L) 8 - 21 mg/dL 08/04/2025 2:23 AM [facility] Creatinine 0.70 0.50 - 1.30 mg/dL 08/04/2025 2:23 AM [facility] eGFR >90 >59 08/04/2025 2:23 AM [facility] Comment:CKD-EPI (2020) in mL /min/1.73 sq meters. Sodium 136 136 - 145 mmol/L 08/04/2025 2:23 AM [facility] Potassium 3.9 3.4 - 5.3 mmol/L 08/04/2025 2:23 AM [facility] Chloride 107 98 - 107 mmol/L 08/04/2025 2:23 AM [facility] CO2 19(L) 22 - 33 mmol/L 08/04/2025 2:23 AM [facility] Anion Gap 10 7 - 17 08/04/2025 2:23 AM [facility] Calcium 8.2(L) 8.7 - 10.5 mg/dL 08/04/2025 2:23 AM [facility] BUN/Creatinine Ratio 10 10.0 - 25.0 Ratio 08/04/2025 2:23 AM [facility] Blood Blood specimen / Unknown 08/04/2025 1:45 AM EST 08/04/2025 1:58 AM EST us Juani De Jesus MD LAB BLOOD ORDERABLES [place] [address], [place] [address] * Lactate Level X 2 (SEPSIS) (08/04/2025 1:45 AM EST) Lactic Acid 1.8 0.5 - 1.9 mmol/L 08/04/2025 2:20 AM [facility] Blood Blood specimen / Unknown 08/04/2025 1:45 AM EST 08/04/2025 1:58 AM EST us Juani De Jesus MD LAB BLOOD ORDERABLES Final Resul t Performing Organization Address [facility] [place] [address], [place] [address] * INR (08/04/2025 1:45 AM EST) Anticoagulant NO ANTI COAGULANT MEDS 08/04/2025 1:04 AM [facility] Prothrombin Time (PT) 11.2 10.0 - 13.5 seconds 08/04/2025 2:23 AM [facility] INR 1.0 08/04/2025 2:23 AM [facility] Comment:INR Therapeutic Rang es: Standard dose anticoagulant 2.0 to 3.0, High dose anticoagulant 2.5-3.5. Blood Blood specimen / Unknown 08/04/2025 1:45 AM EST 08/04/2025 1:58 AM EST us Juani De Jesus MD LAB BLOOD ORDERABLES Final Resul t Performing Organization Address [facility] [place] [address], [place] [address] * Lipase (08/04/2025 1:45 AM EST) Lipase 23 13 - 60 U/L 08/04/2025 2:23 AM [facility] Blood Blood specimen / Unknown 08/04/2025 1:45 AM EST 08/04/2025 1:58 AM EST us Juani De Jesus MD LAB BLOOD ORDERABLES Final Resul t Performing Organization Address City/[facility] [place] [address], [place] [address] * Magnesium (08/04/2025 1:45 AM EST) Pathologist [facility] Magnesium 1.8 1.6 - 2.7 mg/dL 08/04/2025 2:23 AM [facility] Blood Blood specimen / Unknown 08/04/2025 1:45 AM EST 08/04/2025 1:58 AM EST us Juani De Jesus MD LAB BLOOD ORDERABLES [place] [address], [place] [address] * (ABNORMAL) Complete Blood Count, with Differential (08/04/2025 1:45 AM EST) Pathologist [facility] White Blood Cell Count 12.9(H) 4.0 - 11.0 Thou/uL 08/04/2025 2:11 AM [facility] Platelet Count 510(H) 150 - 450 Thou/uL 08/04/2025 2:11 AM [facility] Hemoglobin 9.9(L) 13.0 - 17.7 g/dL 08/04/2025 2:11 AM [facility] Hematocrit 31.9(L) 39.0 - 54.0 % 08/04/2025 2:11 AM [facility] Red Blood Cell Count 4.04(L) 4.50 - 6.20 Mil/uL 08/04/2025 2:11 AM [facility] MCV 79(L) 80 - 100 fL 08/04/2025 2:11 AM [facility] MCH 24.5(L) 26.0 - 34.0 pg 08/04/2025 2:11 AM [facility] MCHC 31.0 30.0 - 36.0 g/dL 08/04/2025 2:11 AM [facility] RDW 20.0(H) 11.5 - 14.5 % 08/04/2025 2:11 AM [facility] MPV 8.5 7.5 - 12.5 fL 08/04/2025 2:11 AM [facility] Neutrophils Auto 73.7 % 08/04/20 2:11 AM [facility] Immature Granulocytes 0.3 % 08/04/2025 2:11 AM [facility] Lymphocytes Auto 18.1 % 08/04/20 2:11 AM [facility] Monocytes Auto 7.2 % 08/04/2025 2:11 AM [facility] Eosinophils Auto 0.5 % 08/04/20 2:11 AM [facility] Basophils Auto 0.2 % 08/04/2025 2:11 AM [facility] Abs Neutrophils Auto 9.48(H) 2.00 - 7.50 Thou/uL 08/04/2025 2:11 AM [facility] Abs Immature Granulocytes 0.04 0.00 - 0.10 Thou/uL 08/04/2025 2:11 AM [facility] Abs Lymphocytes Auto 2.33 1.50 - 4.50 Thou/uL 08/04/2025 2:11 AM [facility] Abs Monocytes Auto 0.92 0.20 - 1.50 Thou/uL 08/04/2025 2:11 AM [facility] Abs Eosinophils Auto 0.06 0.00 - 0.70 Thou/uL 08/04/2025 2:11 AM [facility] Abs Basophils Auto 0.03 0.00 - 0.20 Thou/uL 08/04/2025 2:11 AM [facility] Blood Blood specimen / Unknown 08/04/2025 1:45 AM EST 08/04/2025 1:58 AM EST us Juani De Jesus MD LAB BLOOD ORDERABLES Final Resul t [address] [address], [address] [address] * Type and Screen (08/04/2025 1:36 AM EST) ABO/Rh A POSITIVE 08/04/2025 2:45 AM [facility] Antibody Screen NEGATIVE 2:45 AM [facility] Specimen Expiration 08/07/2025 08/04/2025 2:45 AM EST [facility] Blood Blood specimen / Unknown 08/04/2025 1:36 AM EST 08/04/2025 2:01 AM EST us Juani De Jesus MD BLOOD BANK TEST ORDERABLES Final Result Performing Organization Address [facility] Co de Phone Number [address] [address], [address] [address] * (ABNORMAL) POCT Glucose, Fingerstick (08/04/2025 1:21 AM EST) POC Glucose 123(H) 65 - 99 mg/dL 08/04/2025 1:21 AM EST Blood specimen / Unknown 08/04/2025 1:21 AM EST 08/04/2025 1:22 AM EST Juani De Jesus MD POINT OF CARE TEST ORDERABLES Fi nal Result HOSPITAL LAB See Below * XR Chest 1 view-Portable (08/04/2025 1:16 AM EST) Anatomical Region Laterality Modality Chest Computed Radiogr aphy 08/04/2025 1:05 AM EST Addenda Addendum by Bryant Dukes MD on 08/04/2025 4:40 AM EST ADDENDUM #1 This results regarding enteric tube positioning was conveyed with Dr. Arpan Cline MD by closed looped [employer] communication at 08/04/2025 4:39 AM and it was ascertained that the content and urgency of the report was understood at the time of direct communication. Impressions 08/04/2025 2:03 AM EST *Enteric tube terminating within the proximal thoracic esophagus. *Endotracheal tube terminating 2.2 cm superior to the ming. *No cardiopulmonary abnormalities. Narrative 08/04/2025 2:03 AM EST EXAMINATION: XR CHEST CLINICAL INFORMATION: ETT confirmation COMPARISON: Chest radiograph 11/22/2021 TECHNIQUE: Frontal view of the chest was obtained. FINDINGS: An endotracheal tube terminates 2.2 cm superior to the ming. Enteric tube terminates projection with the superior thoracic trachea. Normal appearance of the cardiomediastinal structures. No effusions or pneumothoraces. Normal pulmonary vasculature. No pulmonary consolidation. No skeletal abnormalities identified. Procedure Note Bryant Dukes MD - 08/04/2025 EXAMINATION: XR CHEST CLINICAL INFORMATION: ETT confirmation COMPARISON: Chest radiograph 11/22/2021 TECHNIQUE: Frontal view of the chest was obtained. FINDINGS: An endotracheal tube terminates 2.2 cm superior to the ming. Enteric tube terminates projection with the superior thoracic trachea. Normal appearance of the cardiomediastinal structures. No effusions or pneumothoraces. Normal pulmonary vasculature. No pulmonary consolidation. No skeletal abnormalities identified. IMPRESSION: *Enteric tube terminating within the proximal thoracic esophagus. *Endotracheal tube terminating 2.2 cm superior to the ming. *No cardiopulmonary abnormalities. Juani De Jesus MD IMG DIAGNOSTIC IMAGING ORDERABLE S Edited Result - Final documented in this encounter Visit Diagnoses Diagnosis Seizure (HCC)- Primary Other convulsions Seizures (HCC) Other convulsions Cholecystitis Cholecystitis, unspecified Endotracheally intubated Sepsis (HCC) documented in this encounter Admitting Diagnoses Diagnosis Seizure (HCC) Other convulsions documented in this encounter Administered Medications Active Administered Medications - up to 1 most recent administrations Medication Order MAR Action Action Date Dose Rate Site bisacodyl (DULCOLAX) suppository 10 mg 10 mg, Rectal, Daily PRN, constipation, if no bowel movement by day 2, Starting on Sat08/04/25 at 0117 cefTRIAXone (ROCEPHIN) 1 g in sodium chloride-MBP (NS) 100 mL IVPB-MBP 1 g, Intravenous, at 200 mL/hr, Every 24 hours, First dose on Sat08/04/25 at 0600, All antimicrobials used at [facility] require an indication. Please complete the following documentation. Bacterial Infection Suspected, Type of Therapy: New Therapy, Indication: Cholecystitis New Bag 08/04/2025 5:42 AM EST 1 g 200 mL/hr chlorhexidine gluconate 2 % wipes - daily CHG application Topical, Daily, First dose on Sat08/04/25 at 0900, For daily use in patients with Urethral Catheter, Central Line, Collins, or Port-a-Cath. Each pack = 6 wipes. Dose = 1 each. Given 08/04/2025 8:35 AM EST 1 each dextrose 5 % and sodium chloride 0.9 % (D5NS) infusion 75 mL/hr, Intravenous, Continuous, Starting on Sat08/04/25 at 1230 Rate/Dose Verify 08/04/2025 1:00 PM EST 75 mL/hr 75 mL/hr dextrose 50 % solution 12.5 g 12.5 g, Intravenous, Every 15 min PRN, low blood sugar, between 50 and 69 mg/dL, Starting on Sat08/04/25 at 0519, For patient with IV access who is NPO or unable to swallow. See Hypoglycemia Management guideline. dextrose 50 % solution 25 g 25 g, Intravenous, Every 15 min PRN, low blood sugar, less than 50 mg/dL, Starting on Sat08/04/25 at 0519, For patient with IV access who is NPO or unable to swallow. See Hypoglycemia Management guideline. Given 08/04/2025 12:07 PM EST 25 g enoxaparin (LOVENOX) syringe 40 mg 40 mg, Subcutaneous, Every 24 hours scheduled, First dose on Sat08/04/25 at 0700, Not for use in patients receiving dialysis.Indications:P rophylaxis of Venous Thromboembolism Given 08/04/2025 8:30 AM EST 40 mg Abdominal Tissue fentaNYL (SUBLIMAZE) 100 mcg/2 mL injection 25 mcg 25 mcg, Intravenous, Every 2 hours PRN, CPOT > 2, Starting on Sat08/04/25 at 0516, For 7 days, For IV Push, administer over 3 minutes. fentaNYL (SUBLIMAZE) IV infusion 1000 mcg in 100 mL NS (10 mcg/mL) (premix) 25 mcg/hr (2.5 mL/hr), Intravenous, Continuous, Starting on Sat08/04/25 at 0107, For 7 days Rate/Dose Verify 08/04/2025 1:00 PM EST 25 mcg/hr 2.5 mL/hr folic acid injection 1 mg/0.2 mL syringe (premix) 1 mg, Intravenous, Administer over 0.5 Minutes, Daily, First dose on Sat08/04/25 at 0900 Given 08/04/2025 8:35 AM EST 1 mg glucagon (GLUCAGEN) injection 1 mg 1 mg, Intramuscular, Daily PRN, low blood sugar, for Blood Glucose LESS than 70 mg/dL and NPO and no IV access, Starting on Sat08/04/25 at 0519, Glucagon may be repeated x 1 (for a total of 2 doses per hypoglycemic event) if patient remains hypoglycemic after first dose. Do not use with hepatic disease or alcohol intoxication. See Hypoglycemia Management guideline. Reconstitute vial with 1 mL sterile water for injection. glucose (GLUTOSE 15) 40 % oral gel 37.5 g 37.5 g (1 Tube), Oral, Every 15 min PRN, low blood sugar, between 50 and 69 mg/dL, Starting on Sat08/04/25 at 0519, Juice or soda is preferred for alert patients (4 oz juice or 6 oz soda). Use glucose gel for patients with fluid restriction. See Hypoglycemia Management guideline. Each 37.5 gram tube of glucose 40 % = 15 grams of glucose. glucose (GLUTOSE 15) 40 % oral gel 75 g 75 g (2 Tube), Oral, Every 15 min PRN, low blood sugar, less than 50 mg/dL, Starting on Sat08/04/25 at 0519, Juice or soda is preferred for alert patients (8 oz juice or 12 oz soda). Use glucose gel for patients with fluid restriction. See Hypoglycemia Management guideline. Each 37.5 gram tube of glucose 40 % = 15 grams of glucose. insulin lispro (HumaLOG/ADMELOG) 100 units/mL injection 1-6 Units 1-6 Units, Subcutaneous, Every 4 hours scheduled, First dose on Sat08/04/25 at 0530, DO NOT HOLD IF NPO Notify provider if Blood Glucose LESS than 70 For BG 141-180 administer 1 unit For BG 181-220 administer 2 units For BG 221-260 administer 3 units For BG 261-300 administer 4 units For BG 301-340 administer 5 units For BG MORE than 340, administer 6 units AND notify provider lactulose (ENULOSE) 10 gm/15 mL solution 20 g 20 g (30 mL), Feeding Tube, Every 4 hours PRN, constipation, if no bowel movment by day 3, Starting on Sat08/04/25 at 0516, Administer until bowel movement metroNIDAZOLE (FLAGYL) IVPB 500 mg in 100 mL NS (premix) 500 mg, Intravenous, Administer over 60 Minutes, Every 12 hours, First dose on Sat08/04/25 at 1200, All antimicrobials used at [facility] require an indication. Please complete the following documentation. Bacterial Infection Documented, Type of Therapy: New Therapy, Indication: Intra-abdominal abscess New Bag 08/04/2025 12:33 PM EST 500 mg 100 mL/hr multivitamin with minerals (CEROVITE) liquid 15 mL 15 mL, Feeding Tube, Daily, First dose on Sat08/04/25 at 0900 Given 08/04/2025 8:31 AM EST 15 mL naloxone (NARCAN) 0.4 mg/mL injection 0.4 mg 0.4 mg, Intravenous, Every 5 min PRN, opioid reversal, respiratory depression, Starting on Sat08/04/25 at 0117, Notify provider if administered PANTOprazole (PROTONIX) injection 40 mg 40 mg, Intravenous, Daily, First dose on Sat08/04/25 at 0900, Dilute with 10 mL of normal saline. Reconstitute each 40 mg vial with 10 ml NS and administer over 2 minutes Given 08/04/2025 8:11 AM EST 40 mg propofol (diPRIvan) 1000 MG/100ML injection 5-50 mcg/kg/min 70 kg Order-specific weight (2.1-21 mL/hr), Intravenous, Titrated, Starting on Sat08/04/25 at 0107, Starting Dose: 5 mcg/kg/min or as specified in dose field. If patient less than 71 kg: titrate by 5 mcg/kg/min every 5 minutes. If patient 71 kg or greater: titrate by 10 mcg/kg/min every 5 minutes. Titration Goal: RASS between -2 and 0 Maximum Dose: 50 mcg/kg/min or as specified in dose field. Do not use if contamination is suspected. Do not administer through the same IV catheter with blood or plasma. *Shake well before using* Rate/Dose Change 08/04/2025 1:05 PM EST 50 mcg/kg/min 21 mL/hr protein supplement feeding tube flush (PROSOURCE TF) 1.5 oz 1.5 oz, Feeding Tube, 2 times daily, First dose on Sat08/04/25 at 1330, 1.5 Ounce = 1 packet senna-docusate (SENNA-S) 8.6-50 MG tablet 2 tablet 2 tablet, Oral, Nightly, First dose on Sat08/04/25 at 2100, Hold for diarrhea sulfamethoxazole-trime thoprim (BACTRIM DS,SEPTRA DS) 800-160 MG tablet 1 tablet 1 tablet, Feeding Tube, Daily, First dose on Sat08/04/25 at 1230, Administer with at least 8 ounces of water, All antimicrobials used at [facility] require an indication. Please complete the following documentation. Medical Prophylaxis Given 08/04/2025 12:47 PM EST 1 tablet thiamine (VITAMIN B-1) injection 100 mg 100 mg, Intravenous, Daily, First dose on Sat08/04/25 at 0900, If ordered IV Push: administer over 5 minutes. Given 08/04/2025 8:11 AM EST 100 mg valproate (DEPACON) 1,000 mg in sodium chloride (NS) 0.9 % 100 mL IVPB 1,000 mg, Intravenous, at 110 mL/hr, Every 12 hours, First dose on Sat08/04/25 at 0700, Hazardous Level Medium B See Hazardous Medication Policy & Procedures for more information. New Bag 08/04/2025 8:13 AM EST 1,000 mg 110 mL/hr Inactive Administered Medications - up to 1 most recent administrations Medication Order MAR Action Action Date Dose Rate Site lactated ringers (LR) infusion 75 mL/hr, Intravenous, Continuous, Starting on Sat08/04/25 at 0700 Rate/Dose Verify 08/04/2025 12:00 PM EST 75 mL/hr 75 mL/hr bictegravir-emtricitabine- tenofovir (BIKTARVY) 50-200-25 mg tablet 1 tablet 1 tablet, Feeding Tube, Daily, First dose (after last modification) on Sat08/04/25 at 0900, *For patients who cannot swallow tablets, dissolve the tablet in 240 mL water and administer to the patient when tablet is fully dissolved. Rinse the container and administer residual medication to the patient.* Given 08/04/2025 11:12 AM EST 1 tablet dextrose 5 % and sodium chloride 0.9 % (D5-NS) 5-0.9 % infusion - ADS Override Pull Starting on Sat08/04/25 at 1218, For 1 dose, Morales Perez: cabinet override levETIRAcetam (KEPPRA) injection 3,000 mg 3,000 mg, Intravenous, Once, On Sat08/04/25 at 0133, For 1 dose, Administer undiluted via slow IV push at a max rate of 500 mg/min. Given 08/04/2025 1:38 AM EST 3,000 mg metroNIDAZOLE (FLAGYL) IVPB 500 mg in 100 mL NS (premix) 500 mg, Intravenous, Administer over 60 Minutes, Once, On Sat08/04/25 at 0105, For 1 dose, All antimicrobials used at [facility] require an indication. Please complete the following documentation. Bacterial Infection Documented, Type of Therapy: New Therapy, Indication: Cholecystitis New Bag 08/04/2025 1:23 AM EST 500 mg 100 mL/hr midazolam (VERSED) IV infusion 100 mg in 100 mL NS (premix) 2 mg/hr (2 mL/hr), Intravenous, Continuous, Starting on Sat08/04/25 at 0107, For 7 days Rate/Dose Verify 08/04/2025 11:00 AM EST 2 mg/hr 2 mL/hr documented in this encounter Active and Recently Administered Medications Times are shown in EST. Scheduled Medication Order 08/02/2025 08/03/2025 08/04/2025 szflhciignc-qicdqvarbrdon-qulrfzxl r (BIKTARVY) 50-200-25 mg tablet 1 tablet (CANCELED) 1 tablet, Feeding Tube, Daily, First dose (after last modification) on Sat08/04/25 at 0900, *For patients who cannot swallow tablets, dissolve the tablet in 240 mL water and administer to the patient when tablet is fully dissolved. Rinse the container and administer residual medication to the patient.* 1112 (Given - Provid er: Moralse Perez RN - Comment: pyxis not loaded, waited for pharm to tube med) cefTRIAXone (ROCEPHIN) 1 g in sodium chloride-MBP (NS) 100 mL IVPB-MBP 1 g, Intravenous, at 200 mL/hr, Every 24 hours, First dose on Sat08/04/25 at 0600, All antimicrobials used at [facility] require an indication. Please complete the following documentation. Bacterial Infection Suspected, Type of Therapy: New Therapy, Indication: Cholecystitis 0542 (New Bag - Prov ider: Tadeo Bates RN) chlorhexidine gluconate 2 % wipes - daily CHG application Topical, Daily, First dose on Sat08/04/25 at 0900, For daily use in patients with Urethral Catheter, Central Line, Collins, or Port-a-Cath. Each pack = 6 wipes. Dose = 1 each. 0835 (Given - Provid er: Morales Perez RN) enoxaparin (LOVENOX) syringe 40 mg 40 mg, Subcutaneous, Every 24 hours scheduled, First dose on Sat08/04/25 at 0700, Not for use in patients receiving dialysis. 0830 (Given - Provid er: Morales Perez RN) folic acid injection 1 mg/0.2 mL syringe (premix) 1 mg, Intravenous, Administer over 0.5 Minutes, Daily, First dose on Sat08/04/25 at 0900 0835 (Given - Provid er: Morales Perez RN) insulin lispro (HumaLOG/ADMELOG) 100 units/mL injection 1-6 Units 1-6 Units, Subcutaneous, Every 4 hours scheduled, First dose on Sat08/04/25 at 0530, DO NOT HOLD IF NPO Notify provider if Blood Glucose LESS than 70 For BG 141-180 administer 1 unit For BG 181-220 administer 2 units For BG 221-260 administer 3 units For BG 261-300 administer 4 units For BG 301-340 administer 5 units For BG MORE than 340, administer 6 units AND notify provider 0542 (Not Given - Pr ovider: Tadeo Bates RN - Reason: Dose held per order parameters)0754 (Not Given - Provider: Morales Perez RN - Reason: Dose held per order parameters)1208 (Not Given - Provider: Morales Perez RN - Reason: Dose held per order parameters)1600 (Due)2000 (Due) levETIRAcetam (KEPPRA) injection 3,000 mg (COMPLETED) 3,000 mg, Intravenous, Once, On Sat08/04/25 at 0133, For 1 dose, Administer undiluted via slow IV push at a max rate of 500 mg/min. 0138 (Given - Provid er: Tran Akhtar RN) metroNIDAZOLE (FLAGYL) IVPB 500 mg in 100 mL NS (premix) (COMPLETED) 500 mg, Intravenous, Administer over 60 Minutes, Once, On Sat08/04/25 at 0105, For 1 dose, All antimicrobials used at [facility] require an indication. Please complete the following documentation. Bacterial Infection Documented, Type of Therapy: New Therapy, Indication: Cholecystitis 0123 (New Bag - Prov ider: Tran Akhtar RN)0223 (Stopped - Provider: Tran Akhtar RN) metroNIDAZOLE (FLAGYL) IVPB 500 mg in 100 mL NS (premix) 500 mg, Intravenous, Administer over 60 Minutes, Every 12 hours, First dose on Sat08/04/25 at 1200, All antimicrobials used at [facility] require an indication. Please complete the following documentation. Bacterial Infection Documented, Type of Therapy: New Therapy, Indication: Intra-abdominal abscess 1233 (New Bag - Prov ider: Morales Perez RN) multivitamin with minerals (CEROVITE) liquid 15 mL 15 mL, Feeding Tube, Daily, First dose on Sat08/04/25 at 0900 0831 (Given - Provid er: Morales Perez RN) PANTOprazole (PROTONIX) injection 40 mg 40 mg, Intravenous, Daily, First dose on Sat08/04/25 at 0900, Dilute with 10 mL of normal saline. Reconstitute each 40 mg vial with 10 ml NS and administer over 2 minutes 0811 (Given - Provid er: Morales Perez RN) protein supplement feeding tube flush (PROSOURCE TF) 1.5 oz 1.5 oz, Feeding Tube, 2 times daily, First dose on Sat08/04/25 at 1330, 1.5 Ounce = 1 packet 1330 (Due)2100 (Due) senna-docusate (SENNA-S) 8.6-50 MG tablet 2 tablet 2 tablet, Oral, Nightly, First dose on Sat08/04/25 at 2100, Hold for diarrhea 2100 (Due) sulfamethoxazole-trimethoprim (BACTRIM DS,SEPTRA DS) 800-160 MG tablet 1 tablet 1 tablet, Feeding Tube, Daily, First dose on Sat08/04/25 at 1230, Administer with at least 8 ounces of water, All antimicrobials used at [facility] require an indication. Please complete the following documentation. Medical Prophylaxis 1247 (Given - Provid er: Morales Perez RN) thiamine (VITAMIN B-1) injection 100 mg 100 mg, Intravenous, Daily, First dose on Sat08/04/25 at 0900, If ordered IV Push: administer over 5 minutes. 0811 (Given - Provid er: Morales Perez RN) valproate (DEPACON) 1,000 mg in sodium chloride (NS) 0.9 % 100 mL IVPB 1,000 mg, Intravenous, at 110 mL/hr, Every 12 hours, First dose on Sat08/04/25 at 0700, Hazardous Level Medium B See Hazardous Medication Policy & Procedures for more information. 0813 (New Bag - Prov ider: Morales Perez RN)1900 (Due) Continuous Medication Order 08/02/2025 08/03/2025 08/04/2025 lactated ringers (LR) infusion (CANCELED) 75 mL/hr, Intravenous, Continuous, Starting on Sat08/04/25 at 0700 0810 (New Bag - Prov ider: Morales Perez RN)0816 (Canceled Entry - Provider: Morales Perez RN)0900 (Rate/Dose Verify - Provider: Morales Perez RN)1000 (Rate/Dose Verify - Provider: Morales Perez RN)1100 (Rate/Dose Verify - Provider: Morales Perez RN)1200 (Rate/Dose Verify - Provider: Morales Perez RN)1222 (Stopped - Provider: Morales Perez RN) dextrose 5 % and sodium chloride 0.9 % (D5NS) infusion 75 mL/hr, Intravenous, Continuous, Starting on Sat08/04/25 at 1230 1222 (New Bag - Prov ider: Morales Perez RN)1300 (Rate/Dose Verify - Provider: Morales Perez RN) fentaNYL (SUBLIMAZE) IV infusion 1000 mcg in 100 mL NS (10 mcg/mL) (premix) 25 mcg/hr (2.5 mL/hr), Intravenous, Continuous, Starting on Sat08/04/25 at 0107, For 7 days 0112 (New Bag - Prov ider: Tran Akhtar RN)0500 (Rate/Dose Verify - Provider: Tadeo Bates RN)0520 (Handoff - Provider: Tadeo Bates RN)0600 (Rate/Dose Verify - Provider: Tadeo Bates RN)0700 (Rate/Dose Verify - Provider: Tadeo Bates RN)0735 (Handoff - Provider: Tadeo Bates RN)0800 (Rate/Dose Verify - Provider: Morales Perez RN)0900 (Rate/Dose Verify - Provider: Morales Perez RN)1000 (Rate/Dose Verify - Provider: Morales Perez RN)1100 (Rate/Dose Verify - Provider: Morales Perez RN)1147 (Rate Change - High Risk Medication - Provider: Morales Perez RN)1200 (Rate/Dose Verify - Provider: Morales Perez RN)1300 (Rate/Dose Verify - Provider: Morales Perez RN) midazolam (VERSED) IV infusion 100 mg in 100 mL NS (premix) (CANCELED) 2 mg/hr (2 mL/hr), Intravenous, Continuous, Starting on Sat08/04/25 at 0107, For 7 days 0118 (New Bag - Prov ider: Tran Akhtar RN)0500 (Rate/Dose Verify - Provider: Tadeo Bates RN)0521 (Handoff - Provider: Tadeo Bates RN)0600 (Rate/Dose Verify - Provider: Tadeo Bates RN)0700 (Rate/Dose Verify - Provider: Tadeo Bates RN)0736 (Handoff - Provider: Tadeo Bates RN)0800 (Rate/Dose Verify - Provider: Morales Perez RN)0900 (Rate/Dose Verify - Provider: Morales Perez RN)1000 (Rate/Dose Verify - Provider: Morales Perez RN)1100 (Rate/Dose Verify - Provider: Morales Perez RN)1149 (Stopped - Provider: Morales Perez RN) propofol (diPRIvan) 1000 MG/100ML injection 5-50 mcg/kg/min 70 kg Order-specific weight (2.1-21 mL/hr), Intravenous, Titrated, Starting on Sat08/04/25 at 0107, Starting Dose: 5 mcg/kg/min or as specified in dose field. If patient less than 71 kg: titrate by 5 mcg/kg/min every 5 minutes. If patient 71 kg or greater: titrate by 10 mcg/kg/min every 5 minutes. Titration Goal: RASS between -2 and 0 Maximum Dose: 50 mcg/kg/min or as specified in dose field. Do not use if contamination is suspected. Do not administer through the same IV catheter with blood or plasma. *Shake well before using* 0111 (New Bag - Prov ider: Tran Akhtar RN - Comment: arrived from [facility]SH)0432 (New Bag - Provider: Tran Akhtar RN)0500 (Rate/Dose Verify - Provider: Tadeo Bates RN)0600 (Rate/Dose Verify - Provider: Tadeo Bates RN)0700 (Rate/Dose Verify - Provider: Tadeo Bates RN)0800 (Rate/Dose Verify - Provider: Morales Perez RN)0900 (Rate/Dose Verify - Provider: Morales Perez RN)0913 (New Bag - Provider: Morales Perez RN)1000 (Rate/Dose Verify - Provider: Morales Perez RN)1100 (Rate/Dose Verify - Provider: Morales Perez RN)1200 (Rate/Dose Verify - Provider: Morales Perez RN)1229 (Rate/Dose Change - Provider: Morales Perez RN)1300 (Rate/Dose Verify - Provider: Morales Perez RN)1305 (Rate/Dose Change - Provider: Morales Perez RN) PRN Medication Order 08/02/2025 08/03/2025 08/04/2025 bisacodyl (DULCOLAX) suppository 10 mg 10 mg, Rectal, Daily PRN, constipation, if no bowel movement by day 2, Starting on Sat08/04/25 at 0117 dextrose 50 % solution 12.5 g(Linked Group 1) 12.5 g, Intravenous, Every 15 min PRN, low blood sugar, between 50 and 69 mg/dL, Starting on Sat08/04/25 at 0519, For patient with IV access who is NPO or unable to swallow. See Hypoglycemia Management guideline. 1207 (See Alternativ e - Provider: Morales Perez RN) dextrose 50 % solution 25 g(Linked Group 1) 25 g, Intravenous, Every 15 min PRN, low blood sugar, less than 50 mg/dL, Starting on Sat08/04/25 at 0519, For patient with IV access who is NPO or unable to swallow. See Hypoglycemia Management guideline. 1207 (Given - Provid er: Morales Perez RN) fentaNYL (SUBLIMAZE) 100 mcg/2 mL injection 25 mcg 25 mcg, Intravenous, Every 2 hours PRN, CPOT > 2, Starting on Sat08/04/25 at 0516, For 7 days, For IV Push, administer over 3 minutes. glucagon (GLUCAGEN) injection 1 mg(Linked Group 1) 1 mg, Intramuscular, Daily PRN, low blood sugar, for Blood Glucose LESS than 70 mg/dL and NPO and no IV access, Starting on Sat08/04/25 at 0519, Glucagon may be repeated x 1 (for a total of 2 doses per hypoglycemic event) if patient remains hypoglycemic after first dose. Do not use with hepatic disease or alcohol intoxication. See Hypoglycemia Management guideline. Reconstitute vial with 1 mL sterile water for injection. 1207 (See Alternativ e - Provider: Morales Perez RN) glucose (GLUTOSE 15) 40 % oral gel 37.5 g(Linked Group 1) 37.5 g (1 Tube), Oral, Every 15 min PRN, low blood sugar, between 50 and 69 mg/dL, Starting on Sat08/04/25 at 0519, Juice or soda is preferred for alert patients (4 oz juice or 6 oz soda). Use glucose gel for patients with fluid restriction. See Hypoglycemia Management guideline. Each 37.5 gram tube of glucose 40 % = 15 grams of glucose. 1207 (See Alternativ e - Provider: Morales Perez RN) glucose (GLUTOSE 15) 40 % oral gel 75 g(Linked Group 1) 75 g (2 Tube), Oral, Every 15 min PRN, low blood sugar, less than 50 mg/dL, Starting on Sat08/04/25 at 0519, Juice or soda is preferred for alert patients (8 oz juice or 12 oz soda). Use glucose gel for patients with fluid restriction. See Hypoglycemia Management guideline. Each 37.5 gram tube of glucose 40 % = 15 grams of glucose. 1207 (See Alternativ e - Provider: Morales Perez RN) lactulose (ENULOSE) 10 gm/15 mL solution 20 g 20 g (30 mL), Feeding Tube, Every 4 hours PRN, constipation, if no bowel movment by day 3, Starting on Sat08/04/25 at 0516, Administer until bowel movement naloxone (NARCAN) 0.4 mg/mL injection 0.4 mg 0.4 mg, Intravenous, Every 5 min PRN, opioid reversal, respiratory depression, Starting on Sat08/04/25 at 0117, Notify provider if administered Linked Groups Order Group 1: glucose (GLUTOSE 15) 40 % oral gel 37.5 gJump to med 37.5 g (1 Tube), Oral, Every 15 min PRN, low blood sugar, between 50 and 69 mg/dL, Starting on Sat08/04/25 at 0519, Juice or soda is preferred for alert patients (4 oz juice or 6 oz soda). Use glucose gel for patients with fluid restriction. See Hypoglycemia Management guideline. Each 37.5 gram tube of glucose 40 % = 15 grams of glucose. Or glucose (GLUTOSE 15) 40 % oral gel 75 gJump to med 75 g (2 Tube), Oral, Every 15 min PRN, low blood sugar, less than 50 mg/dL, Starting on Sat08/04/25 at 0519, Juice or soda is preferred for alert patients (8 oz juice or 12 oz soda). Use glucose gel for patients with fluid restriction. See Hypoglycemia Management guideline. Each 37.5 gram tube of glucose 40 % = 15 grams of glucose. Or dextrose 50 % solution 12.5 gJump to med 12.5 g, Intravenous, Every 15 min PRN, low blood sugar, between 50 and 69 mg/dL, Starting on Sat08/04/25 at 0519, For patient with IV access who is NPO or unable to swallow. See Hypoglycemia Management guideline. Or dextrose 50 % solution 25 gJump to med 25 g, Intravenous, Every 15 min PRN, low blood sugar, less than 50 mg/dL, Starting on Sat08/04/25 at 0519, For patient with IV access who is NPO or unable to swallow. See Hypoglycemia Management guideline. Or glucagon (GLUCAGEN) injection 1 mgJump to med 1 mg, Intramuscular, Daily PRN, low blood sugar, for Blood Glucose LESS than 70 mg/dL and NPO and no IV access, Starting on Sat08/04/25 at 0519, Glucagon may be repeated x 1 (for a total of 2 doses per hypoglycemic event) if patient remains hypoglycemic after first dose. Do not use with hepatic disease or alcohol intoxication. See Hypoglycemia Management guideline. Reconstitute vial with 1 mL sterile water for injection. documented in this encounter Care Teams Tacker Off Relationship Specialty Start Date End Date Real Hightower MD PhD [address] [place] [id number] PCP - General Internal Medicine 08/04/25 documented as of this encounter
--- OUTSIDE RECORDS SUMMARY | 2025-08-04 01:30 | XMS_ITS | Encounter Summary ---
Author Organization [facility] Address [address] [place] [address] Care Team Providers Care Drilling Machine Runner Name Role Phone Real Hightower MD PhD Primary Care Provider Encounter Details Date Type Department Care Team (Late st Contact Info) Description 08/04/2025 1:30 AM EST Ancillary Procedure [facility] Radiology [address] [place] [address] Provider, File Room Arrived Social History Tobacco Use Types Packs/Day Years Used Date Smoking Tobacco: Never Assessed Sex and Gender Information Value Date Recorded Sex Assigned at Male 08/04/2025 1:08 AM EST Legal Sex Male 8:58 AM EST Gender Identity Male 08/04/2025 1:08 AM EST Sexual Orientation Heterosexual (straight) 08/04 1:08 AM EST documented as of this encounter Plan of Treatment Not on file documented as of this encounter Procedures Procedure Name Priority Date/Time Associated Diagnosis Comments CT ABDOMEN ARCHIVE FOR REFERENCE ONLY Routine 08/04/2025 1:27 AM EST documented in this encounter Results * CT Abdomen Archive for Reference Only (08/04/2025 1:27 AM EST) Timothy VIRIDIANA - 08/04/2025 1:27 AM EST This study has been auto finalized and does not contain a result. us File Room Provider IMG DIGITIZE FILMS Final Resu lt VIRIDIANA [phone] documented in this encounter Visit Diagnoses Not on filedocumented in this encounter Care Teams Drilling Machine Runner Relationship Specialty Start Date End Date Real Hightower MD PhD [address] [place] [address] PCP - General Internal Medicine 08/04/25 documented as of this encounter
--- OUTSIDE RECORDS SUMMARY | 2025-08-04 01:35 | XMS_ITS | Encounter Summary ---
Author Organization [facility] Address [address] [place] [address] Care Team Providers Care Dry Finisher Name Role Phone Real Hightower MD PhD Primary Care Provider Encounter Details Date Type Department Care Team (Late st Contact Info) Description 08/04/2025 1:35 AM EST Ancillary Procedure [facility] Radiology [address] [place] [address] Provider, File Room Arrived Social History Tobacco [...] Name Priority Date/Time Associated Diagnosis Comments CT HEAD ARCHIVE FOR REFERENCE ONLY Routine 08/04/2025 1:31 AM EST documented in this encounter Results * CT Head Archive for Reference Only (08/04/2025 1:31 AM EST) Narrative VIRIDIANA - 08/04/2025 1:31 AM EST This study has been auto finalized and does not contain a result. us File Room Provider IMG DIGITIZE FILMS Final Resu lt VIRIDIANA [phone] documented in this encounter Visit Diagnoses Not on filedocumented in this encounter Care Teams Dry Finisher Relationship Specialty Start Date End Date Real Hightower MD PhD [address] [place] [address] PCP - General Internal Medicine 08/04/25 documented as of this encounter
--- OUTSIDE RECORDS SUMMARY | 2025-08-04 01:35 | XMS_ITS | Encounter Summary ---
Author Organization [facility] Address [address] [place] [address] Care Team Providers Care Fish House Worker Name Role Phone Real Hightower MD PhD Primary Care Provider Encounter Details Date Type Department Care Team (Late st Contact Info) Description 08/04/2025 1:35 AM EST Ancillary Procedure [facility] Radiology [address] [place] [address] Provider, File Room Arrived Social History Tobacco [...] Procedure Name Priority Date/Time Associated Diagnosis Comments CR CHEST ARCHIVE FOR REFERENCE ONLY Routine 08/04/2025 1:30 AM EST documented in this encounter Results * CR Chest Archive for Reference only (08/04/2025 1:30 AM EST) Timothy VIRIDIANA - 08/04/2025 1:30 AM EST This study has been auto finalized and does not contain a result. us File Room Provider IMG DIGITIZE FILMS Final Resu lt VIRIDIANA [phone] documented in this encounter Visit Diagnoses Not on filedocumented in this encounter Care Teams Fish House Worker Relationship Specialty Start Date End Date Real Hightower MD PhD [address] [place] [address] PCP - General Internal Medicine 08/04/25 documented as of this encounter
--- OUTSIDE RECORDS SUMMARY | 2025-08-04 13:42 | XMS_ITS | Clinical Summary ---
Author Organization [facility] Address [address] [address] Phone Care Team Providers Care Jig And Fixture Maker Name Role Phone Unknown, Unknown Primary Care [...] PARTNERSHIP ACO ACO PARTNERSHIP ACO Care Teams Jig And Fixture Maker Relationship Specialty Start Date End Date Unknown, Unknown, PCP - General 07/09/24 Additional Source Comments The information contained in this document represents components of the legal health record. It is not the complete legal health record.[facility]
--- OUTSIDE RECORDS SUMMARY | 2025-08-04 13:42 | XMS_ITS | Clinical Summary ---
Author Organization [facility] Address [address] [place] [address] Care Team Providers Care Property Custodian Name Role Phone Real Hightower MD PhD Primary Care Provider Allergies No known active allergies Medications bictegravir-emt ricitabine-teno fovir (BIKTARVY) 50-200-25 mg tablet Take 1 tablet by mouth daily. Suspended MELATONIN PO Take 10 mg by mouth nightly. Suspended doxycycline (DORYX) 100 MG EC tablet Take 100 mg by mouth 2 (two) times a day. 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 Rectal bleeding 11/17/2021 Overview (11/17/2021): Added automatically from request for surgery [id number] GI bleed 11/17/2021 Encounters Date Type Department Care Team Description 08/04/2025 1:35 AM EST Ancillary Procedure [facility] Radiology [address] [place] [address] Provider, File Room Arrived 08/04/2025 1:35 AM EST Ancillary Procedure [facility] Radiology [address] [place] [address] Provider, File Room Arrived 08/04/2025 1:30 AM EST Ancillary Procedure [facility] Radiology [address] [facility] [place] [address] Provider, File Room Arrived 08/04/2025 12:58 AM EST - Present Hospital Encounter JIN CARDENAS [address] ICU [address] [facility] [place] [address] Juani De Jesus MD Velamakanni, Sruti S, MD Korus, Adam J, MD Seizures (HCC) (Primary Dx); Cholecystitis; Endotracheally intubated; Sepsis (HCC) 08/04/2025 Travel from Last 3 Months Social History Tobacco Use Types Packs/Day Years Used Date Smoking Tobacco: Never Assessed Sex and Gender Information Value Date Recorded Sex Assigned at Male 08/04/2025 1:08 AM EST Legal Sex Male 8:58 AM EST Gender Identity Male 08/04/2025 1:08 AM EST Sexual Orientation Heterosexual (straight) 08/04 1:08 AM EST Last Filed Vital Signs Vital Sign Reading [...] Mass Index 22.95 08/04/2025 5:15 AM EST Plan of Treatment Health Maintenance Due Date Last Done Comments Hepatitis C Virus Screening 1998 COVID-19 Vaccine (#1) 2003 DTaP/Tdap/Td Vaccines (1 - Tdap) 2017 Hepatitis B Vaccines (1 of 3 - 19+ 3-dose series) 2017 Pneumococcal Vaccine: Pediat ann (0-5 Years) and At-Risk Patients (6 to 49 Years) (1 of 2 - PCV) 2017 Influenza Vaccine 04/16/2025 11/19/2018, , 08/13/2018, Additional history exists HIV Screening Completed 11/18/2021 HPV Vaccines (No Doses Required) Completed Medical Devices Implanted Type Area Health Science Specialist Device Identifier Shelf Expiration Date Model / Serial / Lot Resolution Ultra Clip Implanted:Qty: 2 on 11/19/2021 by Abril Machado MD at [facility] [employer] JASON [id number] / / Description:Not an implant. Charging purposes only. Abbie Procedures * The patient is currently admitted. [...] 1 VIEW-PORTABLE STAT 08/04/2025 7:14 AM EST FERRITIN Routine 08/04/2025 7:00 AM EST IRON AND TOTAL IRON BINDING CAPACITY Routine 08/04/2025 7:00 AM EST US ABDOMEN-LIMITED STAT 08/04/2025 6: 17 AM EST POCT GLUCOSE, FINGERSTICK (CHARGE) Routine 08/04/2025 5:42 AM EST BLOOD GAS WITH COOXIMETRY, ARTERIAL Routine 08/04/2025 5:40 AM EST LACTIC ACID, PLASMA Sepsis (ED Only) 08/04/2025 3:04 AM EST HEPATIC FUNCTION PANEL STAT 08/04/2025 1:45 AM EST BASIC METABOLIC PANEL STAT 08/04/2025 1:45 AM EST LACTIC ACID, PLASMA Sepsis (ED Only) 08/04/2025 1:45 AM EST PROTIME-INR STAT 08/04/2025 1:45 AM EST LIPASE STAT 08/04/2025 1:45 AM EST MAGNESIUM STAT 08/04/2025 1:45 AM EST COMPLETE BLOOD COUNT, WITH DIFFERENTIAL STAT 08/04/2025 1:45 AM EST BLOOD CULTURE (HOSP LAB) STAT 08/04/2025 1:45 AM EST TYPE AND SCREEN STAT 08/04/2025 1:[address] HEAD ARCHIVE FOR REFERENCE ONLY Routine 08/04/2025 1:31 AM EST CR CHEST ARCHIVE FOR REFERENCE ONLY Routine 08/04/2025 1:[address] ABDOMEN ARCHIVE FOR REFERENCE ONLY Routine 08/04/2025 1:27 AM EST POCT GLUCOSE, FINGERSTICK (CHARGE) Routine 08/04/2025 1:21 AM EST ECG 12-LEAD STAT 08/04/2025 1:19 AM EST Procedure Note - Ashleigh Vazquez - 08/04/2025 1:19 AM ESTThis note is in progress. Normal sinus rhythm Normal ECG When compared with ECG of 25-Nov-2021 07:08, No significant change was found XR CHEST 1 VIEW-PORTABLE STAT 08/04/2025 1:16 AM EST HIV-1 RNA VIRAL LOAD, QUANTITATIVE Routine 11/18/2021 12:15 PM EST from Last 3 Months or Most Recently Relevant to Health Maintenance Results * (ABNORMAL) POCT Glucose, Fingerstick (08/04/2025 12:24 PM EST) Only the most recent of6 resultswithin the time period is included. POC Glucose 121(H) 65 - 99 mg/dL 08/04/2025 12:31 PM EST Blood specimen / Unknown 08/04/2025 12:24 PM EST 08/04/2025 12:31 PM EST us Juani De Jesus MD POINT OF CARE TEST ORDERABLES Fi nal Result HOSPITAL LAB See Below * XR Chest 1 view-Portable (08/04/2025 7:14 AM EST) Only the most recent of2 resultswithin the time period is included. Anatomical Region Laterality Modality Chest Computed Radiogr aphy 08/04/2025 6:59 AM EST Impressions 08/04/2025 7:32 AM EST * ETT tip approximately 1 cm above the ming. * Enteric tube tip and side-port overlies the stomach. This critical result was communicated with the ordering provider Deepti Wilkerson APRN by direct secure messaging via [employer] at 08/04/2025 7:16 AM Interpreted by: Yunier Ochoa MD Regional Controller I personally reviewed the images and the [...] Wilkerson APRN by direct secure messaging via [employer] at 08/04/2025 7:16 AM Interpreted by: Yunier Ochoa MD Regional Controller I personally reviewed the images and the resident's preliminary report and AGREE with the report as it is now presented (RADPAL1). us Jeff Bah APRN IMG DIAGNOSTIC IMAGING ORDE RABLES Final Result * (ABNORMAL) Iron and Total Iron Binding Capacity (08/04/2025 7:00 AM EST) Iron 24(L) 53 - 167 ug/dL 08/04/2025 8:17 AM [facility] UIBC 253 112 - 346 ug/dL 08/04/2025 8:17 AM [facility] Total Iron Binding Capacity 277 100 - 400 ug/dL 08/04/2025 8:17 AM [facility] Iron Sat 9(L) 20 - 50 % 08/04/2025 8:17 AM [facility] Blood Blood specimen / Unknown 08/04/2025 7:00 AM EST 08/04/2025 7:55 AM EST us Jeff Bah APRN LAB BLOOD ORDERABLES Final Result [address] [address], [address] [address] * Ferritin (08/04/2025 7:00 AM EST) Ferritin 84 30 - 400 ug/L 08/04/2025 8:17 AM EST [facility] Blood Blood specimen / Unknown 08/04/2025 7:00 AM EST 08/04/2025 7:55 AM EST Jeff Bah COMMERCIAL ACCOUNTANT LAB BLOOD ORDERABLES Final Result [address] [address], [address] [address] * US Abdomen-Limited (08/04/2025 6:17 AM EST) Anatomical Region Laterality Modality Abdomen Ultrasound 08/04/2025 5:57 AM EST Impressions 08/04/2025 7:25 AM EST 1. Gallbladder wall thickening with intraluminal cholelithiasis suspicious for acute cholecystitis. 2. Nondilated common bile duct with wall thickening, which can be seen with biliary infectious/inflammatory processes (cholangitis). Clinical correlation advised. 3. Hepatomegaly. Interpreted by: Yunier Ochoa MD Regional Controller I personally reviewed the images and the resident's preliminary report and AGREE with the report as it is now presented (RADPAL1). Narrative 08/04/2025 7:25 AM EST EXAMINATION: US ABDOMEN LIMITED (RIGHT UPPER QUADRANT) CLINICAL INFORMATION: question of cholecystitis on CT COMPARISON: CT abdomen and pelvis August 03, 2025 TECHNIQUE: Real-time imaging of the right upper quadrant abdominal viscera. Based on pv design and installation technician report, examination is limited by portable [...] right upper quadrant abdominal viscera. Based on pv design and installation technician report, examination is limited by portable [...] 3. Hepatomegaly. Interpreted by: Yunier Ochoa MD Regional Controller I personally reviewed the images and the resident's preliminary report and AGREE with the report as it is now presented (RADPAL1). us Juani De Jesus MD [facility] US ORDERABLES Final Result * (ABNORMAL) Blood Gas with Cooximetry, Arterial (08/04/2025 5:40 AM EST) Respiratory Info VENT 40% 08/04/20 25 5:41 AM [facility] pH, Arterial 7.39 7.35 - 7.45 08/04/2025 7:29 AM [facility] pCO2, Arterial 38 32 - 45 mmHG 08/04/2025 7:29 AM [facility] pO2, Arterial 206(H) 75 - 95 mmHG 08/04/2025 7:29 AM [facility] CO2, Total 24 22 - 28 mmol/L 08/04/2025 7:29 AM [facility] P/F Ratio 515 08/04/2025 7:29 AM [facility] Base Deficiency 1.2 mmol/L 7:29 AM [facility] Comment:Reference Range: Neg ative 2 to Positive 3 Hemogloblin, Total 10.1(L) 13.0 - 17.7 g/dL 08/04/2025 7:29 AM [facility] O2 Saturation, Arterial 99.4(H) 94 - 97 % 08/04/2025 7:29 AM [facility] Carboxyhemoglobin 0.7 0.0 - 2.0 % 08/04/2025 7:29 AM [facility] Methemoglobin 0.9 0.4 - 1.5 % 08/04/2025 7:29 AM [facility] O2 Content, Arterial 14.4(L) 17.6 - 24.3 mL/dL 08/04/2025 7:29 AM [facility] Blood Blood specimen / Unknown 08/04/2025 5:40 AM EST 08/04/2025 7:26 AM EST Jeff Bah APRN LAB BLOOD ORDERABLES Final Result Performing Organization Address City/[facility]/[place] [address], [place] [address] * Lactate Level X 2 (SEPSIS) (08/04/2025 3:04 AM EST) Only the most recent of2 resultswithin the time period is included. Pathologist [facility] Lactic Acid 1.5 0.5 - 1.9 mmol/L 08/04/2025 3:52 AM [facility] Blood Blood specimen / Unknown 08/04/2025 3:04 AM EST 08/04/2025 3:25 AM EST Juani De Jesus MD LAB BLOOD ORDERABLES Final Resul t Performing Organization Address City/[facility]/[place] [address], [place] [address] * (ABNORMAL) Complete Blood Count, with Differential (08/04/2025 1:45 AM EST) White Blood Cell Count 12.9(H) 4.0 - 11.0 Thou/uL 08/04/2025 2:11 AM [facility] Platelet Count 510(H) 150 - 450 Thou/uL 08/04/2025 2:11 AM [facility] Hemoglobin 9.9(L) 13.0 - 17.7 g/dL 08/04/2025 2:11 AM [facility] Hematocrit 31.9(L) 39.0 - 54.0 % 08/04/2025 2:11 AM [facility] Red Blood Cell Count 4.04(L) 4.50 - 6.20 Mil/uL 08/04/2025 2:11 AM [facility] MCV 79(L) 80 - 100 fL 08/04/2025 2:11 AM [facility] MCH 24.5(L) 26.0 - 34.0 pg 08/04/2025 2:11 AM [facility] MCHC 31.0 30.0 - 36.0 g/dL 08/04/2025 2:11 AM [facility] RDW 20.0(H) 11.5 - 14.5 % 08/04/2025 2:11 AM [facility] MPV 8.5 7.5 - 12.5 fL 08/04/2025 2:11 AM [facility] Neutrophils Auto 73.7 % 08/04/20 2:11 AM [facility] Immature Granulocytes 0.3 % 08/04/2025 2:11 AM [facility] Lymphocytes Auto 18.1 % 08/04/20 2:11 AM [facility] Monocytes Auto 7.2 % 08/04/2025 2:11 AM [facility] Eosinophils Auto 0.5 % 08/04/20 2:11 AM [facility] Basophils Auto 0.2 % 08/04/2025 2:11 AM [facility] Abs Neutrophils Auto 9.48(H) 2.00 - 7.50 Thou/uL 08/04/2025 2:11 AM [facility] Abs Immature Granulocytes 0.04 0.00 - 0.10 Thou/uL 08/04/2025 2:11 AM [facility] Abs Lymphocytes Auto 2.33 1.50 - 4.50 Thou/uL 08/04/2025 2:11 AM [facility] Abs Monocytes Auto 0.92 0.20 - 1.50 Thou/uL 08/04/2025 2:11 AM [facility] Abs Eosinophils Auto 0.06 0.00 - 0.70 Thou/uL 08/04/2025 2:11 AM [facility] Abs Basophils Auto 0.03 0.00 - 0.20 Thou/uL 08/04/2025 2:11 AM [facility] Blood Blood specimen / Unknown 08/04/2025 1:45 AM EST 08/04/2025 1:58 AM EST us Juani De Jesus MD LAB BLOOD ORDERABLES Final Resul t Performing Organization Address [facility] Co de Phone Number [address] [address], [place] [address] * INR (08/04/2025 1:45 AM EST) Anticoagulant NO ANTI COAGULANT MEDS 08/04/2025 1:04 AM [facility] Prothrombin Time (PT) 11.2 10.0 - 13.5 seconds 08/04/2025 2:23 AM [facility] INR 1.0 08/04/2025 2:23 AM [facility] Comment:INR Therapeutic Rang es: Standard dose anticoagulant 2.0 to 3.0, High dose anticoagulant 2.5-3.5. Blood Blood specimen / Unknown 08/04/2025 1:45 AM EST 08/04/2025 1:58 AM EST us Juani De Jesus MD LAB BLOOD ORDERABLES Final Resul t Performing Organization Address City/[facility]/ZIP Co de Phone Number [address] [address], [address] [address] * Magnesium (08/04/2025 1:45 AM EST) Magnesium 1.8 1.6 - 2.7 mg/dL 08/04/2025 2:23 AM [facility] Blood Blood specimen / Unknown 08/04/2025 1:45 AM EST 08/04/2025 1:58 AM EST us Juani De Jesus MD LAB BLOOD [place] [address], [place] [address] * Lipase (08/04/2025 1:45 AM EST) Lipase 23 13 - 60 U/L 08/04/2025 2:23 AM [facility] Blood Blood specimen / Unknown 08/04/2025 1:45 AM EST 08/04/2025 1:58 AM EST us Juani De Jesus MD LAB BLOOD ORDERABLES Final Resul t Performing Organization Address [facility] [place] [address], [place] [address] * (ABNORMAL) Hepatic Function Panel (08/04/2025 1:45 AM EST) Alkaline Phosphatase 585(H) 45 - 128 U/L 08/04/2025 2:23 AM [facility] Aspartate Aminotrans (AST) 137(H) 10 - 55 U/L 08/04/2025 2:23 AM [facility] Alanine Aminotrans (ALT) 140(H) 10 - 55 U/L 08/04/2025 2:23 AM [facility] Bilirubin, Total 2.6(H) 0.2 - 1.0 mg/dL 08/04/2025 2:23 AM [facility] Protein, Total 6.7 6.3 - 8.3 g/dL 08/04/2025 2:23 AM [facility] Albumin 3.0(L) 3.5 - 5.0 g/dL 08/04/2025 2:23 AM [facility] Bilirubin, Direct 2.2(H) 0 - 0.2 mg/dL 08/04/2025 2:23 AM [facility] Globulin 3.7 1.5 - 3.9 g/dL 08/04/2025 2:23 AM [facility] Albumin/Globulin Ratio 0.8(L) 1.0 - 3.0 Ratio 08/04/2025 2:23 AM [facility] Blood Blood specimen / Unknown 08/04/2025 1:45 AM EST 08/04/2025 1:58 AM EST Juani De Jesus MD LAB BLOOD [place]AB[place] [address], [place] [address] * (ABNORMAL) Basic Metabolic Panel (08/04/2025 1:45 AM EST) Glucose 119(H) 65 - 99 mg/dL 08/04/2025 2:23 AM [facility] Comment:Fasting: <100 mg/dL, Non-Fasting: <200 mg/dL (ADA 2004) Blood Urea Nitrogen (BUN) 7(L) 8 - 21 mg/dL 08/04/2025 2:23 AM [facility] Creatinine 0.70 0.50 - 1.30 mg/dL 08/04/2025 2:23 AM [facility] eGFR >90 >59 08/04/2025 2:23 AM [facility] Comment:CKD-EPI (2020) in mL /min/1.73 sq meters. Sodium 136 136 - 145 mmol/L 08/04/2025 2:23 AM [facility] Potassium 3.9 3.4 - 5.3 mmol/L 08/04/2025 2:23 AM [facility] Chloride 107 98 - 107 mmol/L 08/04/2025 2:23 AM [facility] CO2 19(L) 22 - 33 mmol/L 08/04/2025 2:23 AM [facility] Anion Gap 10 7 - 17 08/04/2025 2:23 AM [facility] Calcium 8.2(L) 8.7 - 10.5 mg/dL 08/04/2025 2:23 AM [facility] BUN/Creatinine Ratio 10 10.0 - 25.0 Ratio 08/04/2025 2:23 AM [facility] Blood Blood specimen / Unknown 08/04/2025 1:45 AM EST 08/04/2025 1:58 AM EST us Juani De Jesus MD LAB BLOOD ORDERABLES Final Resul t Performing Organization Address [facility] de Phone Number [address] [address], [address] [address] * Type and Screen (08/04/2025 1:36 AM EST) ABO/Rh A POSITIVE 08/04/2025 2:45 AM EST [facility] Antibody Screen NEGATIVE 2:45 AM EST [facility] Specimen Expiration 08/07/2025 08/04/2025 2:45 AM EST [facility] Blood Blood specimen / Unknown 08/04/2025 1:36 AM EST 08/04/2025 2:01 AM EST us Juani De Jesus MD BLOOD BANK TEST ORDERABLES Final Result Performing Organization Address [facility] Co de Phone Number [address] [address], [address] [address] * CT Head Archive for Reference Only (08/04/2025 1:31 AM EST) [facility] - 08/04/2025 1:31 AM EST This study has been auto finalized and does not contain a result. us File Room Provider IMG DIGITIZE FILMS Final Resu lt Performing Organization Address [facility] de Phone Number [facility] [phone] * CR Chest Archive for Reference only (08/04/2025 1:30 AM EST) Narrative [facility] - 08/04/2025 1:30 AM EST This study has been auto finalized and does not contain a result. us File Room Provider IMG DIGITIZE FILMS Final Resu lt Performing Organization Address [facility] de Phone Number [place] [phone] * CT Abdomen Archive for Reference Only (08/04/2025 1:27 AM EST) Narrative VIRIDIANA - 08/04/2025 1:27 AM EST This study has been auto finalized and does not contain a result. us File Room Provider IMG DIGITIZE FILMS Final Resu lt Performing Organization Address City/[facility]/ZIP Co de Phone Number VIRIDIANA [phone] * (ABNORMAL) HIV-1 RNA Viral Load, Quantitative (11/18/2021 12:15 PM EST) [facility] HIV-1 RNA (copies/mL) 291,728(H) <30 copies/mL 11/23/2021 2:59 PM EST [facility] HIV-1 RNA (log10) 5.46(H) <1.46 log copies/mL 11/23/2021 2:59 PM EST [facility] Interpretation Detected 11/23/2021 2:59 PM EST [facility] Comment:Performed by FDA elham roved [employer] TMA. Linear range is 30 to 10,000,000 copies/mL. HIV Genotyping is not recommended for viral loads below 2,000 copies/mL. Not FDA approved to diagnose HIV infection. Blood specimen (specimen) Plasma specimen / Unknown 11/18/2021 12:15 PM EST 11/18/2021 12:55 PM EST Shani Blankenship MD LAB BLOOD ORDERABLES Final Resu lt Performing Organization Address City/[facility]/ZIP Co de Phone Number HOSPITAL LAB [facility] [address] [place] [address] from Last 3 Months or Most Recently Relevant to Health Maintenance Insurance [facility] Advance Directives * Full Code (Latest Code Status on File) Date Activated Date Inactivated Comments 08/04/2025 1:18 AM * Full Code Date Activated Date Inactivated Comments 11/17/2021 12:47 PM 08/04/2025 12:55 AM Healthcare Agents on File Name Relationship Healthcare Agent Relationship Communication Divya Cramer Adult sibling 4. Next of Kin (Spouse, Adult Child, Parent, Adult Sibling, Grandparent) Care Teams Property Custodian Relationship Specialty Start Date End Date Real Hightower MD PhD [address] [place] [id number] PCP - General Internal Medicine 08/04/25
--- OUTSIDE RECORDS SUMMARY | 2025-08-04 13:42 | XMS_ITS | Clinical Summary ---
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 09/24/2024 Cocaine use disorder ([facility] [place], [facility] V28) 09/24/2024 Colitis 09/24/2024 HIV disease ([facility] [place]24, [facility] V28) STD (sexually transmitted disease) 09/24/2024 Depression 09/24/2024 Psychiatric problem 07/10/2024 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[facility] V24, [facility] V28) 07/2022 PTSD (post-traumatic stress disorder) 11/24/2021 Schizophrenia ([facility] V24, [facility] V28) 022 GI bleed 11/17/2021 Rectal bleeding 11/17/2021 Overview (09/24/2024): Added automatically from request for surgery [id number] HIV (human immunodeficiency virus infection) ([facility] V24, [facility] V28) 10/08/2018 Marijuana use 11/05/2017 Depression Overview (07/21/2024): DX:Depression Marijuana use Overview (07/21/2024): DX:Marijuana use 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[facility] V24) Encounters Date Type Department Care Team Description 06/10/2025 7:37 PM EDT - 06/10/2025 8:[address] [facility] Emergency [address] [place] [phone] Discharge Disposition: Home or Self Care 05/31/2025 11:00 AM EDT Consult [facility] [address] [place] [phone] Julianne Hillman MD HIV disease ([facility] V24, [facility] V28) (Primary Dx); Seizure cerebral ([facility] V24, [facility] V28); Attention deficit disorder of adult with hyperactivity; Psychiatric problem; 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[facility] V24, [facility] V28) 05/11/2025 1:00 PM EDT Office Visit [facility] Hematology Oncology [address] [place] [address] Keke Fish PA Normocytic anemia [...] use 11/05/2017 DX:Marijuana use Depression DX:Depression Seizures ([facility] V24, [facility] V28) Family History Medical History Relation Name [...] Visit [facility] [address] [place] [phone] Julianne Hillman MD [address] [place] [address] Health Maintenance Due Date Last Done Comments [...] Name Priority Date/Time Associated Diagnosis Comments EXTERNAL XRAY REPORT 07/24/2025 EXTERNAL XRAY REPORT 07/24/[address] REPORT 07/21/[address] REPORT 07/21/[address] REPORT 07/16/[address] REPORT [...] Relevant to Health Maintenance Results * External Xray Report (07/24/2025) Only the most recent of2 resultswithin the time period is included. Anatomical Region Laterality Modality Radiographic Maryam ging us Provider [facility] XR PROCEDURES Final Result * External CT Report (07/21/2025) Only the most recent of5 resultswithin the time period is included. Anatomical Region Laterality Modality Computed Tomogra phy us Provider [facility] CT PROCEDURES Final Result * (ABNORMAL) Hepatitis C antibody (01/06/2025 12:49 PM EDT) [facility] Hepatitis C Antibody Positive (A) Negative LAB CHEMISTRY METHOD 01/06/2025 4:52 PM EDT [facility] Comment:If confirmation of t his positive HCV Ab screening test is needed, please redraw and order HCV Viral Load. Note--> This test may not be added on due to different specimen requirements. Blood Venous blood specimen / Unknown Venipuncture / Unknown 01/06/2025 12:49 PM EDT 01/06/2025 1:47 PM EDT Real Hightower MD LAB BLOOD ORDERABLES Final Resul t [facility] [address] [place] [address], [place] [phone] * (ABNORMAL) Lipid panel with reflex to direct LDL (01/06/2025 12:49 PM EDT) [facility] Cholesterol 107 0 - 200 mg/dL LAB CHEMISTRY METHOD 01/06/2025 3:08 PM EDT [facility] Triglycerides 90 0 - 150 mg/dL LAB CHEMISTRY METHOD 01/06/2025 3:08 PM EDT [facility] HDL 36(L) >=40 mg/dL LAB CHEMISTRY METHOD 01/06/2025 3:08 PM EDT [facility] LDL Calculated 53 0 - 100 mg/dL LAB CHEMISTRY METHOD 01/06/2025 3:08 PM EDT [facility] VLDL Cholesterol Jacob 18 mg/dL LAB CHEMISTRY METHOD 01/06/2025 3:08 PM EDT [facility] Non HDL Chol. (LDL+VLDL) 71 <145 mg/dL LAB CHEMISTRY METHOD 01/06/2025 3:08 PM EDT [facility] Chol/HDL Ratio 3.0 0.0 - 4.4 LAB CHEMISTRY METHOD 01/06/2025 3:08 PM EDT [facility] Blood Venous blood specimen / Unknown Venipuncture / Unknown 01/06/2025 12:49 PM EDT 01/06/2025 1:47 PM EDT us Real Hightower MD LAB BLOOD ORDERABLES Final Resul t [facility] [address] [place] [address], from Last 3 Months or Most Recently Relevant to Health Maintenance Insurance [facility] [employer] Member Subscriber Plan / Payer (Ef fective 2024-Present) Name:EVERARDO CRAMER Relation to Subscriber:Self Name:Everardo Cramer Payer ID:[id number] Group ID:[id number] MADRID Type:Not on file Address: [address] [address] [employer] Care Teams Patternmaker Apprentice Wood Relationship Specialty Start Date End Date Real Hightower MD [address] [place] [address] PCP - General 02/22/23
--- OUTSIDE RECORDS SUMMARY | 2025-08-04 13:43 | XMS_ITS | Encounter Summary ---
Author Organization [employer] Address [address] [place] [address] Care Team Providers Care Patient Resource Coordinator Name Role Phone Unavailable Primary Care Provider [...]
--- OUTSIDE RECORDS SUMMARY | 2025-08-04 13:43 | XMS_ITS | Encounter Summary ---
Author Organization [facility] Address [address] [place] [address] Care Team Providers Care Score Caller Name Role Phone Real Hightower MD PhD Primary Care Provider [phone] Encounter Details Date Type Department Care Team (Latest Contact Info) Description 08/04/2025 Travel Social History Tobacco Use Types Packs/Day Years [...] on filedocumented in this encounter Care Teams Score Caller Relationship Specialty Start Date End Date Real Hightower MD PhD [address] [place] [id number] PCP - General Internal Medicine 08/04/25 documented as of this encounter
--- OUTSIDE RECORDS SUMMARY | 2025-08-04 13:43 | XMS_ITS | Patient Health Record ---
Author Organization [facility] Address [address] [place] [address] Care Team Providers Care Felt Washing Machine Tender Name Role Phone Group Angelito Primary Care Provider [phone] Hortencia Gordillo Unavailable Reason For Referral No Information Encounters Encounter Location Date Provider Diagnosis [facility] [address] [place] [phone] 06/25/2025 Hortencia Gordillo Plan Of Treatment No Information Insurance Providers Payer Name Payer Address Payer Phone Subscriber Number Group Number Insured Name Patient Relationship to Insured Coverage Start Date Coverage End Date [place] Medicaid Standard [address] [place] [address] [id number] Everardo Cramer Self - patient is the insured
--- OUTSIDE RECORDS SUMMARY | 2025-08-04 13:43 | XMS_ITS | Clinical Summary ---
Author Organization [employer] Address [address] [facility] [address] [place] [address] Care Team Providers Care School Health Assistant Name Role Phone Unavailable Primary Care Provider [...] 3-dose series) 2017 COVID-19 Vaccine (1 - 2024-2 6 season) 2025 Influenza Vaccine (#1) 2025 Zoster [...]
== END 2025-08-04 | disposition short-term general hospital (02) ==
PROVIDERS: Physician Assistant Medical; Emergency Provider Emergency Medicine; PCP Internal Medicine
DX: A41.9 Sepsis, unspecified organism (principal); K81.0 Acute cholecystitis; R41.82 Altered mental status, unspecified; R56.9 Unspecified convulsions; R32 Unspecified urinary incontinence; Z21 Asymptomatic human immunodeficiency virus [HIV] infection status; Z91.148 Patient's other noncompliance with medication regimen for other reason; Z59.02 Unsheltered homelessness
CPT/HCPCS: 31500; 36415; 51702; 70450; 71045; 74177; 80053; 80307; 81003; 82140; 82550; 83605; 83690; 83735; 85025; 87040; 87637; 93005; 94002; 96361; 96365; 96366; 96367; 96375; 99285; 99291; 99292; J0696; J1165; J1171; J1200; J1790; J1953; J2251; J2405; J2704; J3010; J3360; J3480; J7120; Q9967

== ENCOUNTER → 2025-08-03 20:11 | Outpatient (BNV) | payer OTHER, SELFPAY | PROVIDERS: Emergency Provider Emergency Medicine; PCP Internal Medicine; Visit Provider Internal Medicine | DX: R00.0 Tachycardia, unspecified (principal) | CPT/HCPCS: 93010 ==

== ENCOUNTER → 2025-08-03 21:13 | Outpatient (BNV) | payer OTHER, SELFPAY | PROVIDERS: Emergency Provider Emergency Medicine; PCP Internal Medicine; Visit Provider Specialist | DX: Z46.82 Encounter for fitting and adjustment of non-vascular catheter (principal) | CPT/HCPCS: 71045 ==

== ENCOUNTER 2025-08-28 00:54 | Emergency (ER) | payer OTHER, SELFPAY ==
--- NOTE | ~2025-08-28 | US_ITS ---
CLINICAL HISTORY: RUQ pain --- Additional Notes or Special Instructions: attempted @0510 - pt ended exam due to discomfort. spoke to rn Rosana, she said she would try to get meds to calm pt to complete exam US abdomen limited Comparison: CT/REG/SR - CT ABDOMEN PELVIS W IV CON - 08/28/25 01:57 EST Findings: The visualized pancreas is normal. The aorta and inferior vena cava are normal caliber. The liver is normal in size and echotexture. There is no intrahepatic bile duct dilatation. The common duct is 6 mm in diameter. The gallbladder contains multiple stones and sludge with mild wall thickening and trace pericholecystic fluid. There is sonographic evidence of East's sign. The main portal vein is antegrade. The right kidney is 10.3 cm in length. No ascites. IMPRESSION: Cholelithiasis with mild wall thickening and trace pericholecystic fluid without distention could reflect early developing cholecystitis. This document has been electronically signed by: Jono Rivers MD on 08/28/2025 07:27:06
--- NOTE | ~2025-08-28 | CT_ITS ---
CLINICAL HISTORY: epigastric pain CT abdomen and pelvis with contrast Comparison: CT/REG/SR - CT ABDOMEN PELVIS W IV CON - 08/03/25 21:42 EST Findings: No consolidation or effusion in the included lung bases. The liver, spleen, pancreas, bilateral adrenal glands and bilateral kidneys without acute abnormality or abnormal enhancement. Gallbladder is nondistended. Minimal pericholecystic fluid. Mild intrahepatic biliary dilatation. Heterogeneous density along the CBD. The stomach and bowel loops are nondistended. There are no focal colonic lesions or pneumatosis. There is moderate amount of stool in the colon. There is a low-lying cecum in the right hemipelvis. Appendix is normal. No free fluid, collections or free air in the peritoneal cavity. There no aortic dissection or aneurysm. No abdominopelvic lymphadenopathy. The bladder is normal. There no acute soft tissue or skeletal abnormality in the abdomen or pelvis. IMPRESSION: Mild diffuse intrahepatic biliary dilatation, also seen on the prior exam. The gallbladder is nondistended. However, there is mild amount of pericholecystic fluid. In addition, there appears to be sludge along the CBD without significant dilatation. Recommend further evaluation with right upper quadrant ultrasound. Signs of constipation. This document has been electronically signed by: Jas Seymour MD on 08/28/2025 03:07:47
[2025-08-28 01:21] LABS: MANUAL DIFF FLAG NO
[2025-08-28 01:24] VITALS: PULSE 105; O2SAT 99
[2025-08-28 01:25] VITALS: BP 145/86; PULSE 101; RESP 18; TEMP 36.3; O2SAT 100; BMI 22.9
[2025-08-28 01:25] LABS: Hematocrit 37.7 % (42.0-52.0); Hemoglobin 11.6 g/dl (14.0-18.0); Imm Gran Abs Auto 0.03 X10*3/uL (0.00-0.03); Imm Gran Pct Auto 0.2 % (0.0-0.4); Lymphocytes Absolute Auto 2.8 X10*3/uL (1.2-4.9); Mean Corpuscular HGB Conc 30.8 g/dl (31.0-36.0); Mean Corpuscular Hemoglobin 24.0 pg (27.0-33.0); Mean Corpuscular Volume 77.9 fL (80.0-98.0); NRBC Abs Auto 0.000 X10*3/uL (0.0-0.012); NRBC Pct Auto 0.0 /100WBC (0.0-0.2); Platelet Count 384 X10*3/uL (160-400); Red Blood Count 4.84 X10*6/uL (4.60-5.80); White Blood Count 12.0 X10*3/uL (4.8-10.8)
--- OUTSIDE RECORDS SUMMARY | 2025-08-28 01:40 | XMS_ITS | Clinical Summary ---
Author Organization [employer] Address [address] [facility] [address] [place] [address] Care Team Providers Care Credit Administrator Name Role Phone Unavailable Primary Care Provider [...]
--- OUTSIDE RECORDS SUMMARY | 2025-08-28 01:40 | XMS_ITS | Clinical Summary ---
Author Organization [facility], Located Within [facility] Address [address] [place] [address] Care Team Providers Care Maintenance Parts Technician Name Role Phone Real Hightower MD PhD Primary Care Provider Allergies No known active allergies Medications bictegravir-emtr icitabine-tenofo vir (BIKTARVY) 50-200-25 mg tablet Take 1 tablet by mouth daily. Active MELATONIN PO Take 10 mg by mouth nightly. Active sulfamethoxazole -trimethoprim (BACTRIM SS) 400-80 MG per tabletIndication s:HIV infection, unspecified symptom status (HCC) Take 1 tablet by mouth every 24 hours around the clock. 30 tablet 5 Active thiamine mononitrate (VITAMIN B-1) 100 MG tabletIndication s:Polysubstance use disorder Take 1 tablet (100 mg total) by mouth daily. 30 tablet 5 09/10/20 25 Active multivitamin with minerals Tab tabletIndication s:Polysubstance use disorder Take 1 tablet by mouth daily. 30 tablet 5 09/10/20 25 Active folic acid (FOLVITE) 1 MG tabletIndication s:Polysubstance use disorder Take 1 tablet (1 mg total) by mouth daily. 30 tablet 5 09/10/20 25 Active mirtazapine (REMERON) 15 MG tabletIndication s:Schizophrenia, unspecified type (HCC) Take 1 tablet (15 mg total) by mouth nightly. 30 tablet 5 09/09/20 Active OLANZapine (ZyPREXA) 5 MG tabletIndication s:Schizophrenia, unspecified type (HCC) Take 1 tablet (5 mg total) by mouth 2 (two) times a day. 60 tablet 5 09/09/20 Active divalproex (DEPAKOTE) 500 MG tablet DRIndications:Sc hizophrenia, unspecified type (HCC) Take 2 tablets (1,000 mg total) by mouth every 12 (twelve) hours around the clock. 120 tablet 5 09/09/20 Active doxycycline (DORYX) 100 MG EC tablet Take 100 mg by mouth 2 (two) times a day. 2 08/10/20 Discontinue d(Stop Taking at Discharge) amoxicillin-clav ulanate (AUGMENTIN) 875-125 MG per tabletIndication s:Cholecystitis Take 1 tablet by mouth 2 (two) times a day. 3 tablet 5 08/12/20 Active Problems Problem Noted Date Diagnosed Date Abnormal LFTs 08/09/2025 Assessment & Plan (08/09/2025 4:46 PM EST): Likely in setting of cholecystitis as well as psych medications. Monitor LFTs. Will discuss with surgery given increasing ALP as above. Cholecystitis 08/08/2025 Assessment & Plan (08/09/2025 4:46 PM EST): Confirmed on HIDA scan. Plan is for medical management without surgery or PCT. Remains on ceftriaxone, Flagyl. Plan for total 1 week course of antibiotic- 08/04-08/11 Patient still with abdominal pain, had one episode of fever yesterday, ALP increasing- will discuss with surgery if need for any surgical intervention. Will keep NPO in case. Pain- Bentyl 10 mg 3 times daily, Tums, gradually Assessment & Plan (08/08/2025 5:38 PM EST): confirmed on HIDA scan. Plan for medical management without surgery or PCT. Continue ceftriaxone, Flagyl. Total 1 week course of antibiotic- 08/04-08/11 Will transition to p.o. antibiotic Augmentin at discharge. Pain- Bentyl 10 mg 3 times daily, Tums, gradually Seizure 08/04/2025 Assessment & Plan (08/09/2025 4:46 PM EST): Benign MRI brain LP with no evidence of infection or cryptococcal meningitis. Valproate was increased to 1 g twice daily, will continue. Will continue to monitor LFTs. Assessment & Plan (08/08/2025 5:42 PM EST): Benign MRI brain LP with no evidence of infection or cryptococcal meningitis. Valproate was increased to 1 g twice daily, will continue. PTSD (post-traumatic stress disorder) 11/24/2021 Schizophrenia 11/24/2021 Assessment & Plan (08/09/2025 4:46 PM EST): Psych inputs appreciated. Continue Zyprexa 5 mg twice daily Continue mirtazapine 15 mg nightly. Monitor LFTs closely Assessment & Plan (08/08/2025 5:38 PM EST): Psych inputs appreciated. Continue Zyprexa 5 mg twice daily Continue mirtazapine 15 mg nightly. Amphetamine abuse 11/24/2021 Rectal bleeding 11/17/2021 Overview (11/17/2021): Added automatically from request for surgery [id number] GI bleed 11/17/2021 Encounters Date Type Department Care Team Description 08/04/2025 1:35 AM EST Ancillary Procedure [facility] Radiology [address] [place] [phone] Provider, File Room 08/04/2025 1:35 AM EST Ancillary Procedure [facility] Radiology [address] [place] [phone] Provider, File Room 08/04/2025 1:30 AM EST Ancillary Procedure [facility] Radiology [address] [place] [phone] Provider, File Room 08/04/2025 12:58 AM EST - 08/10/2025 11:09 AM EST Hospital Encounter [place] [id number] [address] [place] [phone] Juani De Jesus MD Velamakanni, Sruti S, MD Korus, Adam J, MD Singh, Gagan, MD Pokhrel, Kamal, MD Seizures (HCC) (Primary Dx); Cholecystitis; Endotracheally intubated; Sepsis (HCC); HIV infection, unspecified symptom status (HCC); Polysubstance use disorder; Schizophrenia, unspecified type (HCC) Discharge Disposition: Home or Self Care from Last 3 Months Social History Tobacco Use Types Packs/Day Years Used Date Smoking Tobacco: Never Assessed Alcohol Use Standard Drinks/Week Comments Yes 0 (1 standard drink = 0.6 oz pur e alcohol) AUDIT-C Answer Date Recorded Q1: How often do you have a drink containing alc ohol? Monthly or less 08/07/2025 Q2: How many drinks containi ng alcohol do you have on a typical day when you are drinking? 1 or 2 08/07/2025 Q3: How often do you have si x or more drinks on one occasion? Never 08/07/2025 Hunger Vital Sign Answer Date Recorded Within the past 12 months, y ou worried that your food would run out before you got the money to buy more. Patient unable to answer 08/04/2025 Within the past 12 months, t he food you bought just didn't last and you didn't have money to get more. Patient unable to answer 08/04/2025 PRAPARE - Transportation Answer Date Re corded In the past 12 months, has l ack of transportation kept you from medical appointments or from getting medications? Patient unable to answer 08/04/2025 In the past 12 months, has l ack of transportation kept you from meetings, work, or from getting things needed for daily living? Patient unable to answer 08/04/2025 Housing Stability Vital Sign Answer Christiano e Recorded In the last 12 months, was t here a time when you were not able to pay the mortgage or rent on time? Patient unable to answer 08/04/2025 In the past 12 months, how m any times have you moved where you were living? 0 08/04/2025 At any time in the past 12 m [facility], were you homeless or living in a prison (including now)? Patient unable to answer 08/04/2025 [facility] Utilities Answer Date Recorded In the past 12 months has th e [employer], gas, oil, or water [employer] threatened to shut off services in your home? Patient unable to answer 08/04/2025 Sex and Gender Information Value Date Recorded Sex Assigned at Male 08/04/2025 1:08 AM EST Legal Sex Male 8:58 AM EST Gender Identity Male 08/04/2025 1:08 AM EST Sexual Orientation Heterosexual (straight) 08/04 1:08 AM EST Last Filed Vital Signs Vital Sign Reading Time Taken Comments Blood Pressure 110/67 08/10/2025 8:27 AM EST Pulse 95 08/10/2025 8:27 AM EST Temperature 35.7 C (96.2 F) 08/10/2025 8:27 AM EST Respiratory Rate 16 08/10/2025 8:27 AM EST Oxygen Saturation 95% 08/10/2025 8:2 7 AM EST Inhaled Oxygen Concentration - - Weight 73.5 kg (162 lb 0.6 oz) 08/06/2025 6:00 AM EST Height 175.3 cm (5' 9 ) 08/04/2025 12:2 9 PM EST taken from Care Everywhere OSH record Body Mass Index 23.93 08/04/2025 12:29 PM EST Plan of Treatment Health Maintenance Due Date Last Done Comments DTaP/Tdap/Td Vaccines (1 - Tdap) 2017 Hepatitis B Vaccines (1 of 3 - 19+ 3-dose series) 2017 Pneumococcal Vaccine: Pediat ann (0-5 Years) and At-Risk Patients (6 to 49 Years) (1 of 2 - PCV) 2017 Influenza Vaccine 04/16/2025 11/19/2018, , 08/13/2018, Additional history exists COVID-19 Vaccine (1 - 2024-2 6 season) 2025 HIV Screening Completed 08/03/2025, 030 01/2022, 10/04/2018, Additional history exists Hepatitis C Virus Screening Completed 08/04/2025, 1 10/04/2024 HPV Vaccines (No Doses Required) Completed Medical Devices Implanted Type Area Powerhouse Electrician Device Identifier Shelf Expiration Date Model / Serial / Lot Resolution Ultra Clip Implanted:Qty: 2 on 11/19/2021 by Abril Machado MD at [facility] [employer] [facility] [id number] / / Description:Not an implant. Charging purposes only. Abbie Procedures Procedure Name Priority Date/Time Associated Diagnosis Comments COMPLETE BLOOD COUNT, WITHOUT DIFFERENTIAL Routine 08/10/2025 6:32 AM EST HEPATIC FUNCTION PANEL Routine 08/10/2025 6:32 AM EST BASIC METABOLIC PANEL Routine 08/10/2025 6:32 AM EST BASIC METABOLIC PANEL Routine 08/09/2025 6:07 AM EST HEPATIC FUNCTION PANEL Routine 08/09/2025 6:07 AM EST COMPLETE BLOOD COUNT, WITHOUT DIFFERENTIAL Routine 08/09/2025 6:07 AM EST ECG 12-LEAD Routine 08/09/2025 12:42 AM EST PHOSPHORUS Routine 08/08/2025 11:12 AM EST MAGNESIUM Routine 08/08/2025 11:12 AM EST BASIC METABOLIC PANEL Routine 08/08/2025 11:12 AM EST EEG LONG-TERM MONITORING Routine 08/07/2025 1:26 PM EST ECG 12-LEAD Routine 08/07/2025 12:24 PM EST EEG LONG-TERM MONITORING Routine 08/07/2025 7:44 AM EST POCT GLUCOSE, FINGERSTICK (CHARGE) Routine 08/06/2025 6:36 PM EST EXTUBATION Routine 08/06/2025 11:23 AM EST POCT GLUCOSE, FINGERSTICK (CHARGE) Routine 08/06/2025 11:21 AM EST EEG LONG-TERM MONITORING Routine 08/06/2025 7:59 AM EST POCT GLUCOSE, FINGERSTICK (CHARGE) Routine 08/06/2025 7:44 AM EST XR CHEST 1 VIEW-PORTABLE Routine 08/06/2025 6:44 AM EST POCT GLUCOSE, FINGERSTICK (CHARGE) Routine 08/06/2025 4:26 AM EST POCT GLUCOSE, FINGERSTICK (CHARGE) Routine 08/06/2025 12:53 AM EST COMPLETE BLOOD COUNT, WITHOUT DIFFERENTIAL Routine 08/06/2025 12:30 AM EST BLOOD GAS WITH COOXIMETRY, ARTERIAL Routine 08/06/2025 12:30 AM EST TRIGLYCERIDES Routine 08/06/2025 12:30 AM EST HEPATIC FUNCTION PANEL Routine 08/06/2025 12:30 AM EST PHOSPHORUS Routine 08/06/2025 12:30 AM EST MAGNESIUM Routine 08/06/2025 12:30 AM EST BASIC METABOLIC PANEL Routine 08/06/2025 12:30 AM EST POCT GLUCOSE, FINGERSTICK (CHARGE) Routine 08/05/2025 7:38 PM EST POCT GLUCOSE, FINGERSTICK (CHARGE) Routine 08/05/2025 7:35 PM EST POCT GLUCOSE, FINGERSTICK (CHARGE) Routine 08/05/2025 3:56 PM EST VARICELLA ZOSTER VIRUS PCR (IN HOUSE) Routine 08/05/2025 3:55 PM EST NM HEPATOBILIARY Routine 08/05/2025 3:38 PM EST HERPES SIMPLEX VIRUS (HSV) 1/2 PCR, CSF Routine 08/05/2025 3:16 PM EST MENINGITIS/ENCEPHALI TIS PCR PANEL Routine 08/05/2025 3:15 PM EST FUNGAL CULTURE (NON-BLOOD) Routine 08/05/2025 3:15 PM EST POCT GLUCOSE, FINGERSTICK (CHARGE) Routine 08/05/2025 2:58 PM EST LUMBAR PUNCTURE Routine 08/05/2025 2:46 PM EST PROTEIN, TOTAL, CSF Routine 08/05/2025 1 :59 PM EST CELL COUNT REFLEX DIFFERENTIAL, CSF Routine 08/05/2025 1:59 PM EST GLUCOSE, CSF Routine 08/05/2025 1:59 PM EST CRYPTOCOCCUS ANTIGEN WITH REFLEX TO TITER Routine 08/05/2025 1:59 PM EST CEREBROSPINAL CULTURE (AEROBIC AND GRAM STAIN) Routine 08/05/2025 1:59 PM EST POCT GLUCOSE, FINGERSTICK (CHARGE) Routine 08/05/2025 8:07 AM EST EEG LONG-TERM MONITORING Routine 08/05/2025 7:51 AM EST POCT GLUCOSE, FINGERSTICK (CHARGE) Routine 08/05/2025 3:42 AM EST MAGNESIUM Routine 08/05/2025 2:45 AM EST PHOSPHORUS Routine 08/05/2025 2:45 AM EST COMPLETE BLOOD COUNT, WITHOUT DIFFERENTIAL Routine 08/05/2025 2:45 AM EST HEMOGLOBIN A1C WITH ESTIMATED AVERAGE GLUCOSE Routine 08/05/2025 2:45 AM EST COMPREHENSIVE METABOLIC PANEL Routine 08/05/2025 2:45 AM EST MRI BRAIN W W/O CONTRAST Routine 08/05/2025 2:09 AM EST POCT GLUCOSE, FINGERSTICK (CHARGE) Routine 08/04/2025 8:26 PM EST POCT GLUCOSE, FINGERSTICK (CHARGE) Routine 08/04/2025 4:08 PM EST POCT GLUCOSE, FINGERSTICK (CHARGE) Routine 08/04/2025 3:41 PM EST POCT GLUCOSE, FINGERSTICK (CHARGE) Routine 08/04/2025 12:24 PM EST POCT GLUCOSE, FINGERSTICK (CHARGE) Routine 08/04/2025 11:58 AM EST POCT GLUCOSE, FINGERSTICK (CHARGE) Routine 08/04/2025 11:55 AM EST POCT GLUCOSE, FINGERSTICK (CHARGE) Routine 08/04/2025 7:51 AM EST XR CHEST 1 VIEW-PORTABLE STAT 08/04/2025 7:14 AM EST (REPORT) RPR TITER RPRRX Routine 08/04/2025 7:00 AM EST HEPATITIS C VIRAL LOAD, QUANTITATIVE Routine 08/04/2025 7:00 AM EST VALPROIC ACID LEVEL, TOTAL Routine 08/04/2025 7:00 AM EST HEMOGLOBIN A1C WITH ESTIMATED AVERAGE GLUCOSE Routine 08/04/2025 7:00 AM EST FERRITIN Routine 08/04/2025 7:00 AM EST IRON AND TOTAL IRON BINDING CAPACITY Routine 08/04/2025 7:00 AM EST HEPATITIS PANEL, ACUTE Routine 08/04/2025 7:00 AM EST CD4/CD8 CELL COUNT WITH RATIO Routine 08/04/2025 7:00 AM EST SYPHILIS ANTIBODY WITH REFLEX TO RPR TITER Routine 08/04/2025 7:00 AM EST US ABDOMEN-LIMITED STAT 08/04/2025 6: 17 AM EST POCT GLUCOSE, FINGERSTICK (CHARGE) Routine 08/04/2025 5:42 AM EST BLOOD GAS WITH COOXIMETRY, ARTERIAL Routine 08/04/2025 5:40 AM EST TOXOPLASMA IGG REFLEX TO IGM Routine 08/04/2025 3:30 AM EST VALPROIC ACID LEVEL, FREE STAT 08/04/2025 3:30 AM EST LACTIC ACID, PLASMA Sepsis (ED [...] ECG 12-LEAD STAT 08/04/2025 1:19 AM EST XR CHEST 1 VIEW-PORTABLE STAT 08/04/2025 1:16 AM EST HIV-1 RNA VIRAL LOAD, QUANTITATIVE Routine 11/18/2021 12:15 PM EST from Last 3 Months or Most Recently Relevant to Health Maintenance Results * (ABNORMAL) COMPLETE BLOOD COUNT, WITHOUT DIFFERENTIAL (08/10/2025 6:32 AM EST) Only the most recent of4 resultswithin the time period is included. White Blood Cell Count 7.9 4.0 - 11.0 Thou/uL 08/10/2025 8:06 AM [facility] Platelet Count 554(H) 150 - 450 Thou/uL 08/10/2025 8:06 AM [facility] Hemoglobin 10.6(L) 13.0 - 17.7 g/dL 08/10/2025 8:06 AM [facility] Hematocrit 34.9(L) 39.0 - 54.0 % 08/10/2025 8:06 AM [facility] Red Blood Cell Count 4.54 4.50 - 6.20 Mil/uL 08/10/2025 8:06 AM [facility] MCV 77(L) 80 - 100 fL 08/10/2025 8:06 AM [facility] MCH 23.3(L) 26.0 - 34.0 pg 08/10/2025 8:06 AM [facility] MCHC 30.4 30.0 - 36.0 g/dL 08/10/2025 8:06 AM [facility] RDW 20.3(H) 11.5 - 14.5 % 08/10/2025 8:06 AM [facility] MPV 9.3 7.5 - 12.5 fL 08/10/2025 8:06 AM [facility] Blood Blood specimen / Unknown 08/10/2025 6:32 AM EST 08/10/2025 7:51 AM EST us Keerthi Sesay MD LAB BLOOD [place] [address], [place] [address] * (ABNORMAL) HEPATIC FUNCTION PANEL (08/10/2025 6:32 AM EST) Only the most recent of4 resultswithin the time period is included. Alkaline Phosphatase 1,079(H) 45 - 128 U/L 08/10/2025 8:28 AM [facility] Aspartate Aminotrans (AST) 56(H) 10 - 55 U/L 08/10/2025 8:28 AM [facility] Alanine Aminotrans (ALT) 75(H) 10 - 55 U/L 08/10/2025 8:28 AM [facility] Bilirubin, Total 0.9 0.2 - 1.0 mg/dL 08/10/2025 8:28 AM [facility] Protein, Total 7.4 6.3 - 8.3 g/dL 08/10/2025 8:28 AM [facility] Albumin 3.2(L) 3.5 - 5.0 g/dL 08/10/2025 8:28 AM [facility] Bilirubin, Direct 0.7(H) 0 - 0.2 mg/dL 08/10/2025 8:28 AM [facility] Globulin 4.2(H) 1.5 - 3.9 g/dL 08/10/2025 8:28 AM [facility] Albumin/Globulin Ratio 0.8(L) 1.0 - 3.0 Ratio 08/10/2025 8:28 AM [facility] Blood Blood specimen / Unknown 08/10/2025 6:32 AM EST 08/10/2025 7:51 AM EST Keerthi Sseay MD LAB BLOOD ORDERABLES Final Resu lt [address] [address], [address] [address] * (ABNORMAL) Basic Metabolic Panel (08/10/2025 6:32 AM EST) Only the most recent of5 resultswithin the time period is included. Glucose 96 65 - 99 mg/dL 08/10/2025 8:28 AM [facility] Comment:Fasting: <100 mg/dL, Non-Fasting: <200 mg/dL (ADA 2004) Blood Urea Nitrogen (BUN) 9 8 - 21 mg/dL 08/10/2025 8:28 AM [facility] Creatinine 0.78 0.50 - 1.30 mg/dL 08/10/2025 8:28 AM [facility] eGFR >90 >59 08/10/2025 8:28 AM [facility] Comment:CKD-EPI (2020) in mL /min/1.73 sq meters. Sodium 139 136 - 145 mmol/L 08/10/2025 8:28 AM [facility] Potassium 4.4 3.4 - 5.3 mmol/L 08/10/2025 8:28 AM [facility] Chloride 106 98 - 107 mmol/L 08/10/2025 8:28 AM [facility] CO2 23 22 - 33 mmol/L 08/10/2025 8:28 AM [facility] Anion Gap 10 7 - 17 08/10/2025 8:28 AM [facility] Calcium 8.6(L) 8.7 - 10.5 mg/dL 08/10/2025 8:28 AM [facility] BUN/Creatinine Ratio 12 10.0 - 25.0 Ratio 08/10/2025 8:28 AM [facility] Blood Blood specimen / Unknown 08/10/2025 6:32 AM EST 08/10/2025 7:51 AM EST Keerthi Sesay MD LAB BLOOD ORDERABLES Final Resu lt Performing Organization Address City/[facility] Co de Phone Number [facility] [address] [place] [address], [address] [address] * ECG 12 lead (08/09/2025 12:42 AM EST) Only the most recent of3 resultswithin the time period is included. Pathologist [facility] Ventricular rate 93 BPM EKG [facility] Atrial rate 93 BPM EKG [facility] P-R interval 108 [facility] duration 80 ms EKG [facility] Q-T interval 332 ms EKG [facility] QTC calculation (Bazett) 413 ms EKG [facility] P axis 105 degrees EKG [facility] R axis 89 degrees EKG [facility] T axis 166 degrees EKG [facility] 08/09/2025 12:4 2 AM EST Narrative EKG [facility] - 08/09/2025 9:00 PM EST Sinus rhythm with short NE Lateral infarct , age undetermined ST & T wave abnormality, consider inferior ischemia Abnormal ECG When compared with ECG of 07-Aug-2025 12:24, Lateral infarct is now Present T wave inversion now evident in Lateral leads Confirmed by DO Villanueva Kyla ([id number]) on 08/09/2025 9:00:28 PM Procedure Note Belkis Villanueva DO - 08/09/2025 Sinus rhythm with short NE Lateral infarct , age undetermined ST & T wave abnormality, consider inferior ischemia Abnormal ECG When compared with ECG of 07-Aug-2025 12:24, Lateral infarct is now Present T wave inversion now evident in Lateral leads Confirmed by DO Villanueva Kyla ([id number]) on 08/09/2025 9:00:28 PM Ruth Guaman PA-C ECG ORDERABLES Final Res ult Performing Organization Address City/[facility]/ZIP [facility] de [facility] Number [facility] * Phosphorus (AM) (08/08/2025 11:12 AM EST) Only the most recent of3 resultswithin the time period is included. Phosphorus 3.3 2.7 - 4.5 mg/dL 08/08/2025 12:34 PM EST [facility] Blood Blood specimen / Unknown 08/08/2025 11:12 AM EST 08/08/2025 12:08 PM EST Loretta West APRN LAB BLOOD ORDERABLES Final Result Performing Organization Address City/[facility]/[place] [address], [place] [address] * Magnesium (AM) (08/08/2025 11:12 AM EST) Only the most recent of4 resultswithin the time period is included. Magnesium 1.8 1.6 - 2.7 mg/dL 08/08/2025 12:34 PM EST [facility] Blood Blood specimen / Unknown 08/08/2025 11:12 AM EST 08/08/2025 12:08 PM EST Loretta West APRN LAB BLOOD ORDERABLES Final Result Performing Organization Address City/[facility]/[place] [address], [place] [address] * EEG < 24 HR W/VIDEO -REDUCED SERVICE (08/07/2025 1:26 PM EST) Narrative [facility] - 08/07/2025 7:31 AM EST Inder Garcia MD 08/07/2025 1:39 PM ADULT INPATIENT CONTINUOUS VIDEO-EEG MONITORING (LTM) REPORT Facility: [facility] Patient and : Everardo Cramer 2000 Date of Procedure: 08/07/2025 Admission Attending: Gerald Vieira MD CLINICAL INFORMATION: The patient is a 25 y.o. male undergoing continuous EEG to evaluate concern for seizures. SEIZURE MEDICATIONS: levetiracetam, midazolam, and propofol RECORDING CONDITIONS: Continuous VEEG monitoring was performed. Electrodes were applied according to the International 10-20 System. Data were obtained, stored, and interpreted according to ACNS guidelines (J Clin Neurophysiol 2006;23(2):85-183) utilizing referential montage recording, with reformatting to longitudinal, transverse bipolar, and referential montages as necessary for interpretation, along with digital/automated EEG analysis of Ciro and Event detections. Patient tolerated procedure without issue. DESCRIPTION OF DAILY EEG AND EVENTS: Monitoring Day 1: 08/04/2025 Posterior Activity: No posterior dominant rhythm. Background Activity: The background was symmetric and continuous consisting of predominantly low voltage (20-49 uV), beta and theta frequencies; anterior-posterior organization was absent. Persistent excessive diffuse beta activity was noted. Reactivity/Variability/Sleep: Reactivity and state changes were present; no clear stage II architecture. Focal Slowing: Frequent (10-49% of the record)~2 Hz rhythmic delta activity that was bilateral, synchronous over the bilateral paracentral region(s) consistent with Lateralized Rhythmic Delta Activity (LRDA). This activity occurred during very brief duration periods (<10 seconds). Interictal Epileptiform Abnormalities: As described above under focal and/or rhythmic slowing . Seizures/Events: None. Other: N/A. ECG: No notable ECG abnormalities were apparent. Monitoring Day 2: 08/05/2025 Posterior Activity: No posterior dominant rhythm. Background Activity: The background was symmetric and continuous consisting of predominantly low voltage (20-49 uV), beta and theta frequencies; anterior-posterior organization was absent. Persistent excessive diffuse beta activity was noted. Reactivity/Variability/Sleep: Reactivity and state changes were present; no clear stage II architecture. Focal Slowing: Frequent (10-49% of the record)~2 Hz rhythmic delta activity that was bilateral, synchronous over the bilateral paracentral region(s) consistent with Lateralized Rhythmic Delta Activity (LRDA). This activity occurred during very brief duration periods (<10 seconds). Interictal Epileptiform Abnormalities: As described above under focal and/or rhythmic slowing . Seizures/Events: Two overnight runs of bilateral paracentral AIRPLANE RENTAL CLERK (at 20:41 and 22:58) with evolution were suspicious but not definite seizures. Other: N/A. ECG: No notable ECG abnormalities were apparent. Monitoring Day 3: 08/06/2025 Posterior Activity: No countable posterior dominant rhythm. Background Activity: The background was symmetric and continuous consisting of predominantly low voltage (20-49 uV), beta frequencies; anterior-posterior organization was present with mild disorganization. Frequent (10-49% of the record), generalized, frontally predominant, rhythmic delta activity was seen consistent with Generalized Rhythmic Delta Activity (GRDA). Reactivity/Variability/Sleep: Reactivity and state changes were present with rudimentary V waves that were symmetric. Focal Slowing: Rhythmic Delta Activity was frequently seen over bilateral paracentral regions. This activity frequently reaches 2 Hz for very brief periods. This was initially thought to represent LRDA but after sedation was weaned and patient was extubated, this activity subsided and only frequent GRDA was noted as described under Background Activity Interictal Epileptiform Abnormalities: As described above under focal and/or rhythmic slowing . Seizures/Events: After extubation, patient had episodes of generalized stiffness, arching, agitation - these were without ictal EEG correlation. Other: N/A. ECG: No notable ECG abnormalities were apparent. ^^^ Dr. Anderson reviewed EEG until 15:00 hours, after which Dr. Garcia reviewed EEG. ^^^ Monitoring Day 4: 08/07/2025 Posterior Activity: No posterior dominant rhythm. Background Activity: The background was symmetric and continuous consisting of predominantly very low voltage (<20 uV), beta frequencies; anterior-posterior organization was absent. Reactivity/Variability/Sleep: Reactivity and state changes were present with well-formed V waves, sleep spindles, and K complexes that were symmetric. Focal Slowing: None. Interictal Epileptiform Abnormalities: None. Seizures/Events: None. Other: There was significant lead artifact after 05: 20, and loss of multiple electrodes after 07: 30. ECG: No notable ECG abnormalities were apparent. DAILY IMPRESSIONS Monitoring Day 1: 08/04/2025 - Markers of a propensity for focal seizures arising from the bilateral paracentral region(s) versus marker of nonspecific encephalopathy. Excess beta likely due to medications or other patient factors. Nonspecific, moderate encephalopathy. Monitoring Day 2: 08/05/2025 - Markers of a propensity for focal seizures arising from the bilateral paracentral region(s) versus marker of nonspecific encephalopathy. Excess beta likely due to medications or other patient factors. Nonspecific, moderate encephalopathy. Two brief runs of bilateral paracentral AIRPLANE RENTAL CLERK overnight (20:41 and 22:58) were suspicious for but not definite ictal. Monitoring Day 3: 08/06/2025 - Nonspecific, mild encephalopathy. Bilateral paracentral rhythmic delta activity initially thought to be LRDA subsided after sedation was weaned and likely represented medication/sedative effect. Monitoring Day 4: 08/07/2025 - Nonspecific, mild encephalopathy. There was loss of multiple electrodes after 07:30 which rendered the study uninterpretable. E.E.G. INTERPRETATION: Abnormal 3 day continuous Video-EEG Monitoring Study due to: Non-epileptic events: Several potentially habitual event(s) captured involving generalized stiffness, arching, agitation after extubation with no associated ictal EEG change. Epileptic events: None. Interictal abnormalities: Background abnormalities including moderate diffuse slowing seen initially; by the end of the recording, there was mild diffuse slowing. Frequent generalized rhythmic delta activity (GRDA) initially; by the end of the recording, this had resolved. CLINICAL CORRELATION: This EEG captured potentially habitual events most consistent with unspecified non-epileptic events. This EEG was suggestive of a nonspecific, moderate encephalopathy initially; by the end of the recording, it was suggestive of a nonspecific, mild encephalopathy. Overall recording Period: 09:10 hrs on 08/04/2025 through 12: 42 hrs on 08/07/2025. ATTESTATION: This EEG was continuously available for review and interpretation. EEG was reviewed and the note updated at least daily for the duration of the recording period, and results provided to the neurology team providing direct patient care. FOR EEG LAB USE: Abnormal EEG: INTERICTAL ABNORMAL: Encephalopathy mild (!qxz&v4); Focal Slowing None (!qxz&v12); Epileptiform Interictals: None (!qxz&v12) EVENTS ABNORMAL: Seizure None (!qxz&v21); Status Epilepticus None (!qxz&v34); Ictal-Interictal Continuum No (!qxz&v47); Non-Epileptic Events Unspecified (!qxz&v52) Gi Giron MD. ABPN/ ABPN Epilepsy Inder Garcia MD, PhD. ABPN/ ABPN epilepsy [facility] Leyla Newby PA-C NEUROLOGY ORDERABLES Farrukh dorita Result - Final Performing Organization Address [facility] Co de Phone Number [facility] [address] [place] [address], [place] * EEG 24 HOUR WITH VIDEO (08/07/2025 7:44 AM EST) Leyla Newby PA-C NEUROLOGY ORDERABLES Fin al Result Performing Organization Address [facility] Co de Phone Number [facility] [address] [place] [address], [place] * POCT Glucose, Fingerstick (08/06/2025 6:36 PM EST) Only the most recent of20 resultswithin the time period is included. POC Glucose 99 65 - 99 mg/dL 08/06/2025 6:37 PM EST Blood specimen / Unknown 08/06/2025 6:36 PM EST 08/06/2025 6:37 PM EST Juani De Jesus MD POINT OF CARE TEST ORDERABLES Fi nal Result Performing Organization Address [facility] Co de Phone Number HOSPITAL LAB See Below * EEG 24 HOUR WITH VIDEO (08/06/2025 7:59 AM EST) Narrative [facility] - 08/06/2025 7:59 AM EST Gi Anderson MD 08/06/2025 4:31 PM ADULT INPATIENT CONTINUOUS VIDEO-EEG MONITORING (LTM) REPORT Facility: [facility] Patient and : Everardo Cramer 2000 Date of Procedure: 08/06/2025 Admission Attending: No admitting provider for patient encounter. Recording begun at 09:10 hrs on 08/04/2025 and is ongoing continuously unless otherwise noted. CLINICAL INFORMATION: The patient is a 25 y.o. male undergoing continuous EEG to evaluate concern for seizures. SEIZURE MEDICATIONS: levetiracetam, midazolam, and propofol RECORDING CONDITIONS: Continuous VEEG monitoring was performed. Electrodes were applied according to the International 10-20 System. Data were obtained, stored, and interpreted according to ACNS guidelines (J Clin Neurophysiol 2006;23(2):85-183) utilizing referential montage recording, with reformatting to longitudinal, transverse bipolar, and referential montages as necessary for interpretation, along with digital/automated EEG analysis of Ciro and Event detections. Patient tolerated procedure without issue. DESCRIPTION OF DAILY EEG AND EVENTS: Monitoring Day 1: 08/04/2025 Posterior Activity: No posterior dominant rhythm. Background Activity: The background was symmetric and continuous consisting of predominantly low voltage (20-49 uV), beta and theta frequencies; anterior-posterior organization was absent. Persistent excessive diffuse beta activity was noted. Reactivity/Variability/Sleep: Reactivity and state changes were present; no clear stage II architecture. Focal Slowing: Frequent (10-49% of the record)~2 Hz rhythmic delta activity that was bilateral, synchronous over the bilateral paracentral region(s) consistent with Lateralized Rhythmic Delta Activity (LRDA). This activity occurred during very brief duration periods (<10 seconds). Interictal Epileptiform Abnormalities: As described above under focal and/or rhythmic slowing . Seizures/Events: None. Other: N/A. ECG: No notable ECG abnormalities were apparent. Monitoring Day 2: 08/05/2025 Posterior Activity: No posterior dominant rhythm. Background Activity: The background was symmetric and continuous consisting of predominantly low voltage (20-49 uV), beta and theta frequencies; anterior-posterior organization was absent. Persistent excessive diffuse beta activity was noted. Reactivity/Variability/Sleep: Reactivity and state changes were present; no clear stage II architecture. Focal Slowing: Frequent (10-49% of the record)~2 Hz rhythmic delta activity that was bilateral, synchronous over the bilateral paracentral region(s) consistent with Lateralized Rhythmic Delta Activity (LRDA). This activity occurred during very brief duration periods (<10 seconds). Interictal Epileptiform Abnormalities: As described above under focal and/or rhythmic slowing . Seizures/Events: Two overnight runs of bilateral paracentral AIRPLANE RENTAL CLERK (at 20:41 and 22:58) with evolution were suspicious but not definite seizures. Other: N/A. ECG: No notable ECG abnormalities were apparent. Monitoring Day 3: 08/06/2025 Posterior Activity: No countable posterior dominant rhythm. Background Activity: The background was symmetric and continuous consisting of predominantly low voltage (20-49 uV), beta frequencies; anterior-posterior organization was present with mild disorganization. Frequent (10-49% of the record), generalized, frontally predominant, rhythmic delta activity was seen consistent with Generalized Rhythmic Delta Activity (GRDA). Reactivity/Variability/Sleep: Reactivity and state changes were present with rudimentary V waves that were symmetric. Focal Slowing: Rhythmic Delta Activity was frequently seen over bilateral paracentral regions. This activity frequently reaches 2 Hz for very brief periods. This was initially thought to represent LRDA but after sedation was weaned and patient was extubated, this activity subsided and only frequent GRDA was noted as described under Background Activity Interictal Epileptiform Abnormalities: As described above under focal and/or rhythmic slowing . Seizures/Events: After extubation, patient had episodes of generalized stiffness, arching, agitation - these were without ictal EEG correlation. Other: N/A. ECG: No notable ECG abnormalities were apparent. ^^^ Dr. Anderson reviewed EEG until 15:00 hours, after which Dr. Garcia reviewed EEG. ^^^ DAILY IMPRESSIONS Monitoring Day 1: 08/05/2025 - Markers of a propensity for focal seizures arising from the bilateral paracentral region(s) versus marker of nonspecific encephalopathy. Excess beta likely due to medications or other patient factors. Nonspecific, moderate encephalopathy. Monitoring Day 2: 08/05/2025 - Markers of a propensity for focal seizures arising from the bilateral paracentral region(s) versus marker of nonspecific encephalopathy. Excess beta likely due to medications or other patient factors. Nonspecific, moderate encephalopathy. Two brief runs of bilateral paracentral AIRPLANE RENTAL CLERK overnight (20:41 and 22:58) were suspicious for but not definite ictal. Monitoring Day 3: 08/06/2025 - Nonspecific, mild encephalopathy. Bilateral paracentral rhythmic delta activity initially thought to be LRDA subsided after sedation was weaned and likely represented medication/sedative effect. REPORT LAST UPDATED: 08/06/2025 2:06 PM. THIS REPORT IS UPDATED AND SIGNED DAILY WHILE THE EEG RECORDING IS ONGOING. THE REPORT IS NOT CONSIDERED FINAL UNTIL THE EEG HAS STOPPED RECORDING. AN OVERALL IMPRESSION AND CLINICAL CORRELATION WILL THEN BE ADDED TO THE END OF THIS REPORT. FOR QUERIES CONTACT THE NEUROLOGY CARE TEAM. Gi Giron MD. ABPN/ ABPN Epilepsy [facility] us Leyla Newby PA-C NEUROLOGY ORDERABLES Farrukh dorita Result - Final [facility] [address] [place] [address], [place] * XR Chest 1 view-Portable (08/06/2025 6:44 AM EST) Only the most recent of3 resultswithin the time period is included. Anatomical Region Laterality Modality Chest Computed Radiogr aphy 08/06/2025 6:38 AM EST Impressions 08/06/2025 9:29 AM EST 1. Endotracheal tube terminates at 3.2 cm above the ming. 2. No acute cardiopulmonary findings. Narrative 08/06/2025 9:29 AM EST EXAMINATION: XR CHEST CLINICAL INFORMATION: Evaluate pulmonary edema. COMPARISON: Chest radiograph 08/04/2025. TECHNIQUE: Frontal view of the chest was obtained. FINDINGS: The endotracheal tube terminates at 3.2 cm above the ming. An enteric tube courses into the abdomen and terminates outside of the field of view. Stable cardiomediastinal silhouette. No consolidation, pleural effusion or pneumothorax. No evidence of pulmonary edema. Unchanged bony thorax. Procedure Note Reina Morales MD - 08/06/2025 EXAMINATION: XR CHEST CLINICAL INFORMATION: Evaluate pulmonary edema. COMPARISON: Chest radiograph 08/04/2025. TECHNIQUE: Frontal view of the chest was obtained. FINDINGS: The endotracheal tube terminates at 3.2 cm above the ming. An enteric tube courses into the abdomen and terminates outside of the field of view. Stable cardiomediastinal silhouette. No consolidation, pleural effusion or pneumothorax. No evidence of pulmonary edema. Unchanged bony thorax. IMPRESSION: 1. Endotracheal tube terminates at 3.2 cm above the ming. 2. No acute cardiopulmonary findings. us Javier Johnson PA-C IMG DIAGNOSTIC IMAGING ORDER HAYLEY Final Result * (ABNORMAL) Blood Gas with Cooximetry, Arterial (08/06/2025 12:30 AM EST) Only the most recent of2 resultswithin the time period is included. Respiratory Info VENT 40% 08/06/20 12:14 AM [facility] pH, Arterial 7.41 7.35 - 7.45 08/06/2025 1:06 AM [facility] pCO2, Arterial 35 32 - 45 mmHG 08/06/2025 1:06 AM [facility] pO2, Arterial 117(H) 75 - 95 mmHG 08/06/2025 1:06 AM [facility] CO2, Total 23 22 - 28 mmol/L 08/06/2025 1:06 AM [facility] P/F Ratio 293 08/06/2025 1:06 AM [facility] Comment:P/F < 300 or < 200: question ALI or ARDS. Base Deficiency 2.3 mmol/L 1:06 AM [facility] Comment:Reference Range: Neg ative 2 to Positive 3 Hemogloblin, Total 8.9(L) 13.0 - 17.7 g/dL 08/06/2025 1:06 AM [facility] O2 Saturation, Arterial 98.6(H) 94 - 97 % 08/06/2025 1:06 AM [facility] Carboxyhemoglobin 0.9 0.0 - 2.0 % 08/06/2025 1:06 AM [facility] Methemoglobin 1.2 0.4 - 1.5 % 08/06/2025 1:06 AM [facility] O2 Content, Arterial 12.2(L) 17.6 - 24.3 mL/dL 08/06/2025 1:06 AM [facility] Blood Blood specimen / Unknown 08/06/2025 12:30 AM EST 08/06/2025 1:02 AM [facility] us Javier Johnson PA-C LAB BLOOD ORDERABLES Final R esult [address] [address], [address] [address] * Triglycerides (08/06/2025 12:30 AM EST) Triglycerides 122 <150 mg/dL 08/06/2025 1:39 AM [facility] Blood Blood specimen / Unknown 08/06/2025 12:30 AM EST 08/06/2025 1:02 AM EST us Javier Johnson PA-C LAB BLOOD ORDERABLES Final R esult Performing Organization Address [facility] Co de Phone Number [address] [address], [place] [address] * Varicella Zoster Virus PCR (In House) (08/05/2025 3:55 PM EST) VZV PCR Source Lumbar Spine 08/05/2025 3:54 PM EST [facility] Comment:Fluid, Cerebrospinal VZV PCR Result Not Detected Not Detected 08/06/2025 9:33 AM EST [facility] Fluid, Cerebrospinal (Lumbar Spine) 08/05/2025 3:55 PM EST 08/05/2025 4:54 PM EST Javier Johnson PA-C MICROBIOLOGY - GENERAL ORDER HAYLEY Final Result Performing Organization Address [facility] Co de Phone Number [facility] [address] [place] [address], [place] [address] * NM Hepatobiliary (08/05/2025 3:38 PM EST) Anatomical Region Laterality Modality Abdomen Nuclear Medicine 08/05/2025 11:0 0 AM EST Impressions 08/05/2025 3:54 PM EST Scintigraphic evidence reflective of acute cholecystitis in appropriate clinical scenario. Suggest clinical correlation. Moderate enterogastric reflux, can contribute to some of the patient's presenting symptoms. Narrative 08/05/2025 3:54 PM EST EXAMINATION: HEPATOBILIARY STUDY CLINICAL INFORMATION: Reason for exam, rule out acute cholecystitis TECHNIQUE: Serial gamma scintillation camera images were obtained over the abdomen for a total observation period of 120 minutes minutes, following the intravenous administration of 5 mCi Tc-99m mebrofenin. Additional static image of the abdomen in anterior projection was obtained at 4 hour following radiotracer administration. FINDINGS: There is normal radiotracer uptake and distribution throughout the hepatic parenchyma followed by expected clearance. Normal biliary to bowel transit is noted, well by 15-20 minutes. Throughout the course of imaging, no clear accumulation of radiotracer within the gallbladder fossa is noted with nonspecific focal prominence at the proximal aspect of the cystic duct to CBD junction, which is poorly demonstrated at 4 hour imaging. Moderate enterogastric reflux. Focal intense uptake correlating to the site of injection in the right upper extremity. Procedure Note Kristofer Leigh MD - 08/05/2025 EXAMINATION: HEPATOBILIARY STUDY CLINICAL INFORMATION: Reason for exam, rule out acute cholecystitis TECHNIQUE: Serial gamma scintillation camera images were obtained over the abdomen for a total observation period of 120 minutes minutes, following the intravenous administration of 5 mCi Tc-99m mebrofenin. Additional static image of the abdomen in anterior projection was obtained at 4 hour following radiotracer administration. FINDINGS: There is normal radiotracer uptake and distribution throughout the hepatic parenchyma followed by expected clearance. Normal biliary to bowel transit is noted, well by 15-20 minutes. Throughout the course of imaging, no clear accumulation of radiotracer within the gallbladder fossa is noted with nonspecific focal prominence at the proximal aspect of the cystic duct to CBD junction, which is poorly demonstrated at 4 hour imaging. Moderate enterogastric reflux. Focal intense uptake correlating to the site of injection in the right upper extremity. IMPRESSION: Scintigraphic evidence reflective of acute cholecystitis in appropriate clinical scenario. Suggest clinical correlation. Moderate enterogastric reflux, can contribute to some of the patient's presenting symptoms. Jeff Bah APRN IMG NM ORDERABLES Final Res ult * Herpes Simplex Virus (HSV) 1/2 PCR (CSF) (08/05/2025 3:16 PM EST) HSV PCR Source Fluid, Cerebrospinal 08/05/2025 3:15 PM [facility] Comment:Fluid, Cerebrospinal Herpes Simplex Virus 1 Not Detected Not Detected 08/06/2025 9:33 AM [facility] Herpes Simplex Virus 2 Not Detected Not Detected 08/06/2025 9:33 AM [facility] Fluid, Cerebrospinal Cerebrospinal fluid specimen / Unknown 08/05/2025 3:16 PM EST 08/05/2025 4:53 PM EST Javier KAY-C BODY FLUIDS AND STOOLS ORDER HAYLEY Final Result [facility] [address] [place] [address], [address] [address] * Fungal Culture (non-blood) (08/05/2025 3:15 PM EST) [facility] Direct Smear Suggests No fungal elements 08/06/2025 10:38 AM [facility] Culture No fungus isolated 08/20/2025 8:14 AM [facility] Fluid, Cerebrospinal (Lumbar Spine) 08/05/2025 3:15 PM EST 08/05/2025 4:52 PM EST Comment:Fluid, Cerebrospinal Javier HOUSERC MICROBIOLOGY - GENERAL ORDER HAYLEY Final Result Performing Organization Address City/[facility]/ZIP Co de Phone Number [facility] [address] [place] [address], * Meningitis/Encephalitis PCR Panel (08/05/2025 3:15 PM EST) [facility] Escherichia coli K1 Not Detected Not Detected 08/06/2025 7:28 AM [facility] Haemophilus influenzae Not Detected Not Detected 08/06/2025 7:28 AM [facility] Listeria monocytogenes Not Detected Not Detected 08/06/2025 7:28 AM [facility] Neisseria Meningitidis Not Detected Not Detected 08/06/2025 7:28 AM [facility] Streptococcus agalactiae Not Detected Not Detected 08/06/2025 7:28 AM [facility] Streptococcus pneumoniae Not Detected Not Detected 08/06/2025 7:28 AM [facility] Cytomegalovirus (CMV) Not Detected Not Detected 08/06/2025 7:28 AM [facility] Enterovirus Not Detected Not Detected 08/06/2025 7:28 AM [facility] Herpes Simplex Virus 1 Not Detected Not Detected 08/06/2025 7:28 AM [facility] Herpes Simplex Virus 2 Not Detected Not Detected 08/06/2025 7:28 AM [facility] Human Herpesvirus 6 (HHV-6) Not Detected Not Detected 08/06/2025 7:28 AM [facility] Human Parechovirus Not Detected Not Detected 08/06/2025 7:28 AM [facility] Varicella Zoster Virus (VZV) Not Detected Not Detected 08/06/2025 7:28 AM [facility] Cryptococcus neoformanns/meng Not Detected Not Detected 08/06/2025 7:28 AM [facility] Fluid, Cerebrospinal (Lumbar Spine) 08/05/2025 3:15 PM EST 08/05/2025 4:52 PM EST us Javier Johnson PA-C MICROBIOLOGY - GENERAL ORDER HAYLEY Final Result [facility] [address] [place] [address], * LUMBAR PUNCTURE (08/05/2025 2:46 PM EST) Narrative Javier Johnson PA-C - 08/05/2025 2:46 PM EST Javier Johnson PA-C 08/05/2025 3:48 PM Lumbar Puncture Date/Time: 08/05/2025 2:46 PM Performed by: Javier Johnson PA-C Authorized by: Javier Johnson PA-C Consent: Written consent obtained Consent given by: power of alliances consultant Required items: required blood products, implants, devices, and special equipment available Patient identity confirmed: arm band, hospital-assigned identification number and anonymous protocol, patient vented/unresponsive Time out: Immediately prior to procedure a time out was called to verify the correct patient, procedure, equipment, client support administrator and site/side marked as required. Indications: evaluation for infection Anesthesia: local infiltration Anesthesia: Local Anesthetic: lidocaine 1% without epinephrine Anesthetic total: 4 mL Sedation: Patient sedated: yes Sedatives: see MAR for details and propofol Analgesia: see MAR for details and fentanyl Vitals: Vital signs were monitored during sedation. Preparation: Patient was prepped and draped in the usual sterile fashion. Lumbar space: L4-L5 interspace Patient's position: right lateral decubitus Needle gauge: 22 Needle type: spinal needle - Quincke tip Needle length: 2.5 in Number of attempts: 1 Opening pressure: 19 cm H2O Fluid appearance: clear Tubes of fluid: 4 Total volume: 12 ml Post-procedure: site cleaned and adhesive bandage applied Patient tolerance: patient tolerated the procedure well with no immediate complications Comments: Indication: Rule out meningitis Diagnosis: Seizure Procedure: A time out was completed before procedure began. Patient was placed in the right lateral decubitus. The ASIS was used as a landmark to locate the L4-5 vertebral space. The space was palpated to approximate patency. The patient was prepped and draped in traditional sterile fashion. Lidocaine 1% w/o epi was used to form a wheel and infiltrate the vertebral space for local anesthesia. The spinal needle was advanced through the skin and into the vertebral space until CSF was noted to be freely flowing from the needle. An opening pressure of 19 was noted. The CSF was noted to be clear and colorless in appearance, and 12 mL were obtained. The needle was slowly removed and a clean dressing was placed. The patient tolerated the procedure will with no major complications. Time separate from Critical Care Time: 25 us Javier Johnson PA-C PROCEDURE/MINOR SURGICAL ORD ERABLES Final Result * Cerebrospinal Culture (includes Aerobic and Gram Stain) (08/05/2025 1:59 PM EST) Gram stain suggestive of No neutrophils No organisms seen 08/05/2025 5:49 PM EST [facility] Culture Negative after 5 days 08/11/2025 7:38 AM EST [facility] Fluid, Cerebrospinal (Lumbar Spine) 08/05/2025 1:59 PM EST 08/05/2025 4:48 PM EST Comment:Fluid, Cerebrospinal Javier Johnson PA-C MICROBIOLOGY - GENERAL ORDER HAYLEY Final Result [facility] [address] [place] [address], [place] [address] * Protein, Total, CSF (08/05/2025 1:59 PM EST) Protein, CSF 23 15 - 45 mg/dL 08/05/2025 5:07 PM [facility] Fluid, Cerebrospinal Cerebrospinal fluid specimen / Unknown 08/05/2025 1:59 PM EST 08/05/2025 2:57 PM EST Javier Johnson PA-C BODY FLUIDS AND STOOLS ORDER HAYLEY Final Result Performing Organization Address City/[facility] Co de Phone Number [address] [address], [address] [address] * Cryptococcus Antigen with Reflex to Titer (08/05/2025 1:59 PM EST) Specimen Source Lumbar Spine 08/05/2025 1:59 PM [facility] Comment:Fluid, Cerebrospinal Cryptococcus Antigen Negative Negative 08/06/2025 11:12 AM [facility] Fluid, Cerebrospinal (Lumbar Spine) 08/05/2025 1:59 PM EST 08/05/2025 2:58 PM EST Javier Johnson PA-C MICROBIOLOGY - GENERAL ORDER HAYLEY Final Result Performing Organization Address City/[facility] Co de Phone Number [facility] [address] [place] [address], [address] [address] * Cell Count, Reflex Differential, CSF (08/05/2025 1:59 PM EST) Tube Number 4 08/05/2025 5:30 PM [facility] Appearance, CSF Clear Clear 5:30 PM [facility] Color Colorless Colorless 08/05/2025 5:30 PM [facility] Xanthochromia Absent Absent 08/05/2025 5:30 PM [facility] Nucleated Cells, CSF 1 0 - 5 /CUMM 08/05/2025 5:30 PM [facility] RBC, CSF 0 0 /CUMM 08/05/2025 5:30 PM EST [facility] Fluid, Cerebrospinal Cerebrospinal fluid specimen / Unknown 08/05/2025 1:59 PM EST 08/05/2025 2:57 PM EST Javier Johnson PA-C BODY FLUIDS AND STOOLS ORDER HAYLEY Final Result Performing Organization Address [facility] [place] [address], [place] [address] * Glucose, CSF (08/05/2025 1:59 PM EST) Glucose, CSF 49 40 - 70 mg/dL 08/05/2025 5:07 PM EST [facility] Fluid, Cerebrospinal Cerebrospinal fluid specimen / Unknown 08/05/2025 1:59 PM EST 08/05/2025 2:57 PM EST Javier KAY-C BODY FLUIDS AND STOOLS ORDER HAYLEY Final Result Performing Organization Address City/[facility] [place] [address], [place] [address] * EEG 24 HOUR WITH VIDEO (08/05/2025 7:51 AM EST) Narrative NATUS - 08/05/2025 7:51 AM EST Gi Anderson MD 08/05/2025 11:55 AM ADULT INPATIENT CONTINUOUS VIDEO-EEG MONITORING (LTM) REPORT Facility: [facility] Patient and : Everardo Cramer 2000 Date of Procedure: 08/05/2025 Admission Attending: No admitting provider for patient encounter. Recording begun at 09:10 hrs on 08/04/2025 and is ongoing continuously unless otherwise noted. CLINICAL INFORMATION: The patient is a 25 y.o. male undergoing continuous EEG to evaluate concern for seizures. SEIZURE MEDICATIONS: levetiracetam, midazolam, and propofol RECORDING CONDITIONS: Continuous VEEG monitoring was performed. Electrodes were applied according to the International 10-20 System. Data were obtained, stored, and interpreted according to ACNS guidelines (J Clin Neurophysiol 2006;23(2):85-183) utilizing referential montage recording, with reformatting to longitudinal, transverse bipolar, and referential montages as necessary for interpretation, along with digital/automated EEG analysis of Ciro and Event detections. Patient tolerated procedure without issue. DESCRIPTION OF DAILY EEG AND EVENTS: Monitoring Day 1: 08/04/2025 Posterior Activity: No posterior dominant rhythm. Background Activity: The background was symmetric and continuous consisting of predominantly low voltage (20-49 uV), beta and theta frequencies; anterior-posterior organization was absent. Persistent excessive diffuse beta activity was noted. Reactivity/Variability/Sleep: Reactivity and state changes were present; no clear stage II architecture. Focal Slowing: Frequent (10-49% of the record)~2 Hz rhythmic delta activity that was bilateral, synchronous over the bilateral paracentral region(s) consistent with Lateralized Rhythmic Delta Activity (LRDA). This activity occurred during very brief duration periods (<10 seconds). Interictal Epileptiform Abnormalities: As described above under focal and/or rhythmic slowing . Seizures/Events: None. Other: N/A. ECG: No notable ECG abnormalities were apparent. Monitoring Day 2: 08/05/2025 Posterior Activity: No posterior dominant rhythm. Background Activity: The background was symmetric and continuous consisting of predominantly low voltage (20-49 uV), beta and theta frequencies; anterior-posterior organization was absent. Persistent excessive diffuse beta activity was noted. Reactivity/Variability/Sleep: Reactivity and state changes were present; no clear stage II architecture. Focal Slowing: Frequent (10-49% of the record)~2 Hz rhythmic delta activity that was bilateral, synchronous over the bilateral paracentral region(s) consistent with Lateralized Rhythmic Delta Activity (LRDA). This activity occurred during very brief duration periods (<10 seconds). Interictal Epileptiform Abnormalities: As described above under focal and/or rhythmic slowing . Seizures/Events: None. Other: N/A. ECG: No notable ECG abnormalities were apparent. DAILY IMPRESSIONS Monitoring Day 1: 08/05/2025 - Markers of a propensity for focal seizures arising from the bilateral paracentral region(s). Excess beta likely due to medications or other patient factors. Nonspecific, moderate encephalopathy. Monitoring Day 2: 08/05/2025 - Markers of a propensity for focal seizures arising from the bilateral paracentral region(s). Excess beta likely due to medications or other patient factors. Nonspecific, moderate encephalopathy. REPORT LAST UPDATED: 08/05/2025 11:41 AM. THIS REPORT IS UPDATED AND SIGNED DAILY WHILE THE EEG RECORDING IS ONGOING. THE REPORT IS NOT CONSIDERED FINAL UNTIL THE EEG HAS STOPPED RECORDING. AN OVERALL IMPRESSION AND CLINICAL CORRELATION WILL THEN BE ADDED TO THE END OF THIS REPORT. FOR QUERIES CONTACT THE NEUROLOGY CARE TEAM. Gi Giron MD. ABPN/ ABPN Epilepsy [facility] Leyla Newby PA-C NEUROLOGY ORDERABLES Farrukh dorita Result - Final [facility] [address] [place] [address], * Hemoglobin A1c with Estimated Average Glucose (Routine) (08/05/2025 2:45 AM EST) Only the most recent of2 resultswithin the time period is included. Hemoglobin A1C 5.5 <5.7 % 08/05/2025 3:33 AM [facility] Comment: A1c% Interpretation 5.7 - 6.0 Increase risk of diabetes 6.1 - 6.4 Higher risk of diabetes > or = 6.5 Consistent with diabetes Diabetes Care, 33(Supp 1):S1-S61, 2010 Estimated Average Glucose 111 mg/dL 08/05/2025 3:33 AM [facility] Blood Blood specimen / Unknown 08/05/2025 2:45 AM EST 08/05/2025 3:02 AM EST Leyla Newby PA-C LAB BLOOD ORDERABLES Fin al Result [address] [address], [address] [address] * (ABNORMAL) Comprehensive Metabolic Panel (08/05/2025 2:45 AM EST) Glucose 79 65 - 99 mg/dL 08/05/2025 3:31 AM [facility] Comment:Fasting: <100 mg/dL, Non-Fasting: <200 mg/dL (ADA 2005) Blood Urea Nitrogen (BUN) 5(L) 8 - 21 mg/dL 08/05/2025 3:31 AM [facility] Creatinine 0.79 0.50 - 1.30 mg/dL 08/05/2025 3:31 AM [facility] eGFR >90 >59 08/05/2025 3:31 AM [facility] Comment:CKD-EPI (2020) in mL /min/1.73 sq meters. Sodium 139 136 - 145 mmol/L 08/05/2025 3:31 AM [facility] Potassium 3.3(L) 3.4 - 5.3 mmol/L 08/05/2025 3:31 AM [facility] Chloride 110(H) 98 - 107 mmol/L 08/05/2025 3:31 AM [facility] CO2 20(L) 22 - 33 mmol/L 08/05/2025 3:31 AM [facility] Calcium 7.9(L) 8.7 - 10.5 mg/dL 08/05/2025 3:31 AM [facility] Alkaline Phosphatase 614(H) 45 - 128 U/L 08/05/2025 3:31 AM [facility] Aspartate Aminotrans (AST) 85(H) 10 - 55 U/L 08/05/2025 3:31 AM [facility] Alanine Aminotrans (ALT) 108(H) 10 - 55 U/L 08/05/2025 3:31 AM [facility] Bilirubin, Total 2.6(H) 0.2 - 1.0 mg/dL 08/05/2025 3:31 AM [facility] Protein, Total 6.1(L) 6.3 - 8.3 g/dL 08/05/2025 3:31 AM [facility] Albumin 2.5(L) 3.5 - 5.0 g/dL 08/05/2025 3:31 AM [facility] BUN/Creatinine Ratio 6(L) 10.0 - 25.0 Ratio 08/05/2025 3:31 AM [facility] Globulin 3.6 1.5 - 3.9 g/dL 08/05/2025 3:31 AM [facility] Albumin/Globulin Ratio 0.7(L) 1.0 - 3.0 Ratio 08/05/2025 3:31 AM EST [facility] Anion Gap 9 7 - 17 08/05/2025 3:31 AM EST [facility] Blood Blood specimen / Unknown 08/05/2025 2:45 AM EST 08/05/2025 3:02 AM EST Leyla Dubois Odin KAY-Madeline LAB BLOOD ORDERABLES Fin al Result Performing Organization Address City/State/[facility] Co de Phone Number [facility] [address] [place] [address], [facility] [address] [place] [address] * MRI Brain w w/o contrast (08/05/2025 2:09 AM EST) Anatomical Region Laterality Modality Head Magnetic Resonan ce 08/05/2025 1:11 AM EST Impressions 08/05/2025 9:50 AM EST 1. There is no evidence of an acute infarct, hemorrhage, or mass. There is no abnormal parenchymal or meningeal enhancement. 2. Paranasal sinus disease. Narrative 08/05/2025 9:50 AM EST EXAMINATION: MRI BRAIN W W/O CONTRAST CLINICAL INDICATION: Male, 25 years old. 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 CONTRAST IV contrast was administered per protocol COMPARISON: None FINDINGS: Brain: There is no restricted diffusion to suggest a recent infarct. There is no hemosiderin susceptibility effect to suggest prior hemorrhage. There is no hydrocephalus. There is no midline shift. There is no abnormal parenchymal or meningeal enhancement. Orbits: Normal. Pituitary: The sella and para-sellar structures are normal. Paranasal Sinuses, Mastoids, and Middle Ears: There is moderate mucosal thickening within left maxillary sinus with mucous retention cyst noted. There is mild mucosal thickening in the right. There is diffuse mucosal thickening throughout the ethmoid air cells. The mastoids are clear. Vasculature: There are normal flow voids in the carotid arteries and the vertebrobasilar system. Osseous structures: The skull base and calvarium are normal in appearance. Procedure Note Erich Ramos MD - 08/05/2025 EXAMINATION: MRI BRAIN W W/O CONTRAST CLINICAL INDICATION: Male, 25 years old. 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 CONTRAST IV contrast was administered per protocol COMPARISON: None FINDINGS: Brain: There is no restricted diffusion to suggest a recent infarct. There is no hemosiderin susceptibility effect to suggest prior hemorrhage. There is no hydrocephalus. There is no midline shift. There is no abnormal parenchymal or meningeal enhancement. Orbits: Normal. Pituitary: The sella and para-sellar structures are normal. Paranasal Sinuses, Mastoids, and Middle Ears: There is moderate mucosal thickening within left maxillary sinus with mucous retention cyst noted. There is mild mucosal thickening in the right. There is diffuse mucosal thickening throughout the ethmoid air cells. The mastoids are clear. Vasculature: There are normal flow voids in the carotid arteries and the vertebrobasilar system. Osseous structures: The skull base and calvarium are normal in appearance. IMPRESSION: 1. There is no evidence of an acute infarct, hemorrhage, or mass. There is no abnormal parenchymal or meningeal enhancement. 2. Paranasal sinus disease. Leyla Newby PA-C IMG MRI ORDERABLES Final Result * (ABNORMAL) RPR Titer (08/04/2025 7:00 AM EST) RPR Titer 1:2(A) Nonreactive TITER 08/05/2025 1:21 PM EST [facility] 08/04/2025 7:00 AM EST 08/04/2025 7:55 AM EST Jeff Bah APRN LAB BLOOD ORDERABLES Final Result [facility] [address] [place] [address], * (ABNORMAL) Syphilis Antibodies, reflex to RPR Titer (08/04/2025 7:00 AM EST) Syphilis Antibody Reflex RPR Titer and TPA Reactive( A) Nonreactive 08/05/2025 10:36 AM EST [facility] Comment:Reactive results of initial diagnostic test suggest Treponema pallidum IgM and IgG antibodies and must be confirmed by a nontreponemal lab test. RPR reflex to TPPA to follow. Blood Blood specimen / Unknown 08/04/2025 7:00 AM EST 08/04/2025 7:55 AM EST Jeff Bah APRN LAB BLOOD ORDERABLES Final Result Performing Organization Address [facility]/ZIP Co de Phone Number [facility] [address] [place] [address], [place] * (ABNORMAL) Hepatitis C Viral Load, Quantitative (08/04/2025 7:00 AM EST) HCV RNA (IU/mL) 1,889,753(H) <10 IU/mL 08/11/2025 3:05 PM [facility] HCV RNA (log10) 6.28(H) <1.00 log10 IU/mL 08/11/2025 3:05 PM [facility] Interpretation Detected 08/11/2025 3:05 PM [facility] Comment:Performed by FDA elham roved [employer] TMA. Linear range is 10 to 100,000,000 IU/mL. HCV Genotyping is not recommended for viral loads below 300 IU/mL. 08/04/2025 7:00 AM EST 08/04/2025 7:55 AM EST Comment:Serum~Plasma Jeff Bah APRN LAB BLOOD ORDERABLES Final Result Performing Organization Address [facility]/ZIP Co de Phone Number [facility] [address] [place] [address], [place] * (ABNORMAL) Iron and Total Iron Binding Capacity (08/04/2025 7:00 AM EST) Iron 24(L) 53 - 167 ug/dL 08/04/2025 8:17 AM [facility] UIBC 253 112 - 346 ug/dL 08/04/2025 8:17 AM [facility] Total Iron Binding Capacity 277 100 - 400 ug/dL 08/04/2025 8:17 AM [facility] Iron Sat 9(L) 20 - 50 % 08/04/2025 8:17 AM [facility] Blood Blood specimen / Unknown 08/04/2025 7:00 AM EST 08/04/2025 7:55 AM EST Jeff Bah CLOTH SPONGER LAB BLOOD ORDERABLES Final Result [address] [address], [address] [address] * (ABNORMAL) CD4/CD8 Cell Count with Ratio (08/04/2025 7:00 AM EST) [facility] CD4+ T Cells (%) 15(L) 34 - 58 % 08/04/2025 2:17 PM [facility] CD4+ T Cells (Absolute) 349(L) 535 - 1,451 cells/cumm 08/04/2025 2:17 PM [facility] CD8+ T Cells (%) 54(H) 7 - 35 % 08/04/2025 2:17 PM [facility] CD8+ T Cells (Absolute) 1,293(H) 139 - 783 cells/cumm 08/04/2025 2:17 PM [facility] CD4:CD8 Ratio 0.27(L) 1.50 - 2.70 Ratio 08/04/2025 2:17 PM [facility] Blood Blood specimen / Unknown 08/04/2025 7:00 AM EST 08/04/2025 7:55 AM EST us Jeff Bah APRN LAB BLOOD ORDERABLES Final Result [address] [address], [address] [address] * (ABNORMAL) Hepatitis Panel, Acute (08/04/2025 7:00 AM EST) Pathologist [facility] Hepatitis A Antibody IgM Nonreactive Nonreactive 08/05/2025 10:36 AM [facility] Hepatitis B Core Antibody IgM Nonreactive Nonreactive 08/05/2025 10:36 AM [facility] Hepatitis B Surface Ag Screen Nonreactive Nonreactive 08/05/2025 10:36 AM [facility] Hepatitis C Antibody Reactive(A) Nonreactive 08/05/2025 10:36 AM [facility] Comment:Presumptive evidence of antibodies to HCV. Hepatitis C Viral Load, Quantitative results to follow. Hepatitis Interpretation: These results indicate Hepatitis C infection. 08/05/2025 10:36 AM [facility] Blood Blood specimen / Unknown 08/04/2025 7:00 AM EST 08/04/2025 7:55 AM EST Comment:Serum~Plasma Jeff Bah APRN LAB BLOOD ORDERABLES Final Result [facility] [address] [place] [address], * Ferritin (08/04/2025 7:00 AM EST) Ferritin 84 30 - 400 ug/L 08/04/2025 8:17 AM [facility] Blood Blood specimen / Unknown 08/04/2025 7:00 AM EST 08/04/2025 7:55 AM EST Jeff Bah APRN LAB BLOOD ORDERABLES Final Result Performing Organization Address City/[facility]/[place] [address], [place] [address] * (ABNORMAL) Valproic Acid Level, Total (08/04/2025 7:00 AM EST) Valproic Acid (Depakote) <3(L) 50 - 100 mg/L 08/04/2025 2:58 PM [facility] 08/04/2025 7:00 AM EST 08/04/2025 7:55 AM EST Jeff Bah CLOTH SPONGER LAB BLOOD ORDERABLES Final Result [address] [address], [facility] [address] [place] [address] * US Abdomen-Limited (08/04/2025 6:17 AM EST) Anatomical Region Laterality Modality Abdomen Ultrasound 08/04/2025 5:57 AM EST Impressions 08/04/2025 7:25 AM EST 1. Gallbladder wall thickening with intraluminal cholelithiasis suspicious for acute cholecystitis. 2. Nondilated common bile duct with wall thickening, which can be seen with biliary infectious/inflammatory processes (cholangitis). Clinical correlation advised. 3. Hepatomegaly. Interpreted by: Yunier Ochoa MD [employer] Scientist I personally reviewed the images and the resident's preliminary report and AGREE with the report as it is now presented ([id number]). Narrative 08/04/2025 7:25 AM EST EXAMINATION: US ABDOMEN LIMITED (RIGHT UPPER QUADRANT) CLINICAL INFORMATION: question of cholecystitis on CT COMPARISON: CT abdomen and pelvis August 03, 2025 TECHNIQUE: Real-time imaging of the right upper quadrant abdominal viscera. Based on vehicle operator technician report, examination is limited by portable [...] right upper quadrant abdominal viscera. Based on vehicle operator technician report, examination is limited by portable [...] 3. Hepatomegaly. Interpreted by: Yunier Ochoa MD [employer] Research Scientist I personally reviewed the images and the resident's preliminary report and AGREE with the report as it is now presented ([email or web address]). Juani De Jesus MD [facility] ORDERABLES Final Result * Toxoplasma IgG Reflex to IgM (08/04/2025 3:30 AM EST) Toxoplasma Antibody, IgG Negative Negative 08/06/2025 1:56 PM EST [facility] Comment:Absence of detectabl e Toxoplasma gondii IgG antibodies. A negative result does not rule out acute infection. Blood Blood specimen / Unknown 08/04/2025 3:30 AM EST 08/04/2025 1:01 PM EST Leyla Newby PA-C LAB BLOOD ORDERABLES Fin al Result [facility] [address] [place] [address], [place] * (ABNORMAL) Valproic Acid Level, Free (08/04/2025 3:30 AM EST) Valproic Acid, Free <4.0(L) 4.8 - 17.3 mg/L 08/06/2025 1:33 PM EST [facility] Comment: (NOTE) Note: Non-linear drug binding properties result in the fraction of Free Valproic Acid increasing as total drug increases. The free fraction may range from 5% to 25% for the total drug range of 30-160 mg/L. Blood Blood specimen / Unknown 08/04/2025 3:30 AM EST 08/04/2025 3:40 AM EST Alberto Cross MD LAB BLOOD ORDERABLES Mehreen l Result [employer], [place] [id number] [place] [address] [address] [address] [place], [place] , [facility], [address] [place] [address] * Lactate Level X 2 (SEPSIS) (08/04/2025 3:04 AM EST) Only the most recent of2 resultswithin the time period is included. Lactic Acid 1.5 0.5 - 1.9 mmol/L 08/04/2025 3:52 AM EST [facility] Blood Blood specimen / Unknown 08/04/2025 3:04 AM EST 08/04/2025 3:25 AM EST Juani De Jesus MD LAB BLOOD ORDERABLES Final Resul t Performing Organization Address [facility] [place] [address], [place] [address] * Blood Culture (08/04/2025 1:45 AM EST) Culture Sterile after 5 days 08/09/2025 7:38 AM EST [facility] Blood Blood specimen / Unknown 08/04/2025 1:45 AM EST 08/04/2025 2:24 AM EST Comment:Blood Juani De Jesus MD LAB BLOOD ORDERABLES Final Resul t Performing Organization Address City/[facility]/ZIP Co de Phone Number [facility] [address] [place] [id number], * (ABNORMAL) Complete Blood Count, with Differential (08/04/2025 1:45 AM EST) White Blood Cell Count 12.9(H) 4.0 - 11.0 Thou/uL 08/04/2025 2:11 AM [facility] Platelet Count 510(H) 150 - 450 Thou/uL 08/04/2025 2:11 AM [facility] Hemoglobin 9.9(L) 13.0 - 17.7 g/dL 08/04/2025 2:11 AM [facility] Hematocrit 31.9(L) 39.0 - 54.0 % 08/04/2025 2:11 AM [facility] Red Blood Cell Count 4.04(L) 4.50 - 6.20 Mil/uL 08/04/2025 2:11 AM [facility] MCV 79(L) 80 - 100 fL 08/04/2025 2:11 AM [facility] MCH 24.5(L) 26.0 - 34.0 pg 08/04/2025 2:11 AM [facility] MCHC 31.0 30.0 - 36.0 g/dL 08/04/2025 2:11 AM [facility] RDW 20.0(H) 11.5 - 14.5 % 08/04/2025 2:11 AM [facility] MPV 8.5 7.5 - 12.5 fL 08/04/2025 2:11 AM [facility] Neutrophils Auto 73.7 % 08/04/20 2:11 AM [facility] Immature Granulocytes 0.3 % 08/04/2025 2:11 AM [facility] Lymphocytes Auto 18.1 % 08/04/20 2:11 AM [facility] Monocytes Auto 7.2 % 08/04/2025 2:11 AM [facility] Eosinophils Auto 0.5 % 08/04/20 2:11 AM [facility] Basophils Auto 0.2 % 08/04/2025 2:11 AM [facility] Abs Neutrophils Auto 9.48(H) 2.00 - 7.50 Thou/uL 08/04/2025 2:11 AM [facility] Abs Immature Granulocytes 0.04 0.00 - 0.10 Thou/uL 08/04/2025 2:11 AM [facility] Abs Lymphocytes Auto 2.33 1.50 - 4.50 Thou/uL 08/04/2025 2:11 AM [facility] Abs Monocytes Auto 0.92 0.20 - 1.50 Thou/uL 08/04/2025 2:11 AM [facility] Abs Eosinophils Auto 0.06 0.00 - 0.70 Thou/uL 08/04/2025 2:11 AM [facility] Abs Basophils Auto 0.03 0.00 - 0.20 Thou/uL 08/04/2025 2:11 AM [facility] Blood Blood specimen / Unknown 08/04/2025 1:45 AM EST 08/04/2025 1:58 AM EST us Juani De Jesus MD LAB BLOOD ORDERABLES Final Resul t Performing Organization Address City/[facility] [facility] [place] [address], [place] [address] * INR (08/04/2025 1:45 AM EST) Anticoagulant NO ANTI COAGULANT MEDS 08/04/2025 1:04 AM [facility] Prothrombin Time (PT) 11.2 10.0 - 13.5 seconds 08/04/2025 2:23 AM [facility] INR 1.0 08/04/2025 2:23 AM [facility] Comment:INR Therapeutic Rang es: Standard dose anticoagulant 2.0 to 3.0, High dose anticoagulant 2.5-3.5. Blood Blood specimen / Unknown 08/04/2025 1:45 AM EST 08/04/2025 1:58 AM EST us Juani De Jesus MD LAB [place]LOOD [place] [address], [place] [address] * Lipase (08/04/2025 1:45 AM EST) Lipase 23 13 - 60 U/L 08/04/2025 2:23 AM EST [facility] Blood Blood specimen / Unknown 08/04/2025 1:45 AM EST 08/04/2025 1:58 AM EST us Juani De Jesus MD LAB BLOOD ORDERABLES Final Resul t Performing Organization Address [facility] [place] [address], [place] [address] * Type and Screen (08/04/2025 1:36 AM EST) ABO/Rh A POSITIVE 08/04/2025 2:45 AM EST [facility] Antibody Screen NEGATIVE 2:45 AM EST [facility] Specimen Expiration 08/07/2025 08/04/2025 2:45 AM EST [facility] Blood Blood specimen / Unknown 08/04/2025 1:36 AM EST 08/04/2025 2:01 AM EST us Juani De Jesus MD BLOOD BANK TEST ORDERABLES Final Result Performing Organization Address [facility] [place] [address], [place] [address] * CT Head Archive for Reference Only (08/04/2025 1:31 AM EST) Narrative [facility] - 08/04/2025 1:31 AM EST This study has been auto finalized and does not contain a result. us File Room Provider IMG DIGITIZE FILMS Final Resu lt Performing Organization Address [facility] Co de Phone Number [facility] [phone] * CR Chest Archive for Reference only (08/04/2025 1:30 AM EST) Narrative [facility] - 08/04/2025 1:30 AM EST This study has been auto finalized and does not contain a result. us File Room Provider IMG DIGITIZE FILMS Final Resu lt Performing Organization Address City/[facility]/ZIP Co de Phone Number [place] [phone] * CT Abdomen Archive for Reference Only (08/04/2025 1:27 AM EST) Narrative [place] - 08/04/2025 1:27 AM EST This study has been auto finalized and does not contain a result. us File Room Provider IMG DIGITIZE FILMS Final Resu lt Performing Organization Address [facility] Co de Phone Number [place] [phone] * (ABNORMAL) HIV-1 RNA Viral Load, Quantitative (11/18/2021 12:15 PM EST) HIV-1 RNA (copies/mL) 291,728(H) <30 copies/mL 11/23/2021 2:59 PM EST [facility] HIV-1 RNA (log10) 5.46(H) <1.46 log copies/mL 11/23/2021 2:59 PM EST [facility] Interpretation Detected 11/23/2021 2:59 PM EST [facility] Comment:Performed by FDA elham roved [employer] TMA. Linear range is 30 to 10,000,000 copies/mL. HIV Genotyping is not recommended for viral loads below 2,000 copies/mL. Not FDA approved to diagnose HIV infection. Blood specimen (specimen) Plasma specimen / Unknown 11/18/2021 12:15 PM EST 11/18/2021 12:55 PM EST Shani Blankenship MD LAB BLOOD ORDERABLES Final Resu lt Performing Organization Address City/[facility]/ZIP Co de Phone Number HOSPITAL LAB [facility] [address] [place] [address] from Last 3 Months or Most Recently Relevant to Health Maintenance Insurance [facility] Advance Directives Documents on File Type Date Recorded Patient Corporate Communications Associate Expl anation Advance Directive-Scan 08/10/2025 1:36 PM 08/10/2025 HH * Full Code (Latest Code Status on File) Date Activated Date Inactivated Comments 08/04/2025 1:18 AM * Full Code Date Activated Date Inactivated Comments 11/17/2021 12:47 PM 08/04/2025 12:55 AM Healthcare Agents on File Name Relationship Healthcare Agent Relationshi p Communication Divya Cramer Adult sibling 1. Health Care Represen tative Care Teams Maintenance Parts Technician Relationship Specialty Start Date End Date Real Hightower MD PhD [address] [place] [phone] PCP - General Internal Medicine 08/04/25
--- OUTSIDE RECORDS SUMMARY | 2025-08-28 01:40 | XMS_ITS | Clinical Summary ---
Author Organization [facility] Address [address] [place] [phone] Phone Care Team Providers Care Slitter And Rewinder Name Role Phone Real Hightower MD Primary Care Provider [phone] Allergies No known active allergies Medications No [...] (09/24/2024): Added automatically from request for surgery [id number] HIV (human immunodeficiency virus infection) Marijuana use 11/05/2017 Depression Overview (07/21/2024): DX:Depression Marijuana use Overview (07/21/2024): DX:Marijuana use Immune deficiency disorder Encounters Date Type Department Care Team Description 06/10/2025 7:37 PM EDT - 06/10/2025 8:[address] [facility] Emergency [address] [place] [address] Discharge Disposition: Home or Self Care 05/31/2025 11:00 AM EDT Consult [facility] [address] [place] [address] Julianne Hillman MD HIV disease ([facility] V24, [facility] V28) (Primary Dx); Seizure cerebral ([facility] V24, [facility] V28); Attention deficit disorder of adult with hyperactivity; Psychiatric problem; 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[facility] V24, [facility] V28) from Last 3 Months Immunizations Immunization Administration [...] use 11/05/2017 DX:Marijuana use Depression DX:Depression Seizures ([facility] V24, [facility] V28) Family History Medical History Relation Name [...] Upcoming Encounters Date Type Department Care Team ([facility] st Contact Info) Description 09/30/2025 10:30 AM EST Office Visit [facility] [address] [place] [phone] Julianne Hillman MD [address] [place] [address] Health Maintenance Due Date Last Done Comments [...] Name Priority Date/Time Associated Diagnosis Comments EXTERNAL NEUROLOGY REPORT 08/07/2025 EXTERNAL NEUROLOGY REPORT 08/07/2025 EXTERNAL NEUROLOGY REPORT 08/06/2025 EXTERNAL NEUROLOGY REPORT 08/06/2025 EXTERNAL NEUROLOGY REPORT 08/05/[address] REPORT 08/03/[address] REPORT 08/03/[address] REPORT 08/03/[address] REPORT 08/03/2025 EXTERNAL XRAY REPORT 08/03/2025 EXTERNAL XRAY REPORT 08/03/2025 EXTERNAL XRAY REPORT 08/03/2025 EXTERNAL XRAY REPORT 08/03/2025 EXTERNAL XRAY REPORT 07/24/2025 EXTERNAL XRAY REPORT [...] Relevant to Health Maintenance Results * External Neurology Report (08/07/2025) Provider [facility] NEUROLOGY ORDERABLES Fin al Result * External Neurology Report (08/07/2025) Provider [facility] NEUROLOGY ORDERABLES Fin al Result * External Neurology Report (08/06/2025) Provider [facility] NEUROLOGY ORDERABLES Fin al Result * External Neurology Report (08/06/2025) Provider [facility] NEUROLOGY ORDERABLES Fin al Result * External Neurology Report (08/05/2025) Provider [facility] NEUROLOGY ORDERABLES Fin al Result * External Xray Report (08/03/2025) Only the most recent of6 resultswithin the time period is included. Anatomical Region Laterality Modality Radiographic Maryam ging Result [facility] IMG XR PROCEDURES Final Result * External CT Report (08/03/2025) Only the most recent of9 resultswithin the time period is included. Anatomical Region Laterality Modality Computed Tomogra phy Result [facility] IMG CT PROCEDURES Final Result * (ABNORMAL) Hepatitis C antibody (01/06/2025 12:49 PM EDT) Hepatitis C Antibody Positive (A) Negative LAB CHEMISTRY METHOD 01/06/2025 4:52 PM EDT [facility] Comment:If confirmation of t his positive HCV Ab screening test is needed, please redraw and order HCV Viral Load. Note--> This test may not be added on due to different specimen requirements. Blood Venous blood specimen / Unknown Venipuncture / Unknown 01/06/2025 12:49 PM EDT 01/06/2025 1:47 PM EDT us Real Hightower MD LAB BLOOD ORDERABLES Final Resul t [facility] [address] [place] [address], [place] [phone] * (ABNORMAL) Lipid panel with reflex to direct LDL (01/06/2025 12:49 PM EDT) Cholesterol 107 0 - 200 mg/dL LAB CHEMISTRY METHOD 01/06/2025 3:08 PM EDT [facility] Triglycerides 90 0 - 150 mg/dL LAB CHEMISTRY METHOD 01/06/2025 3:08 PM EDT [facility] HDL 36(L) >=40 mg/dL LAB CHEMISTRY METHOD 01/06/2025 3:08 PM EDT [facility] LDL Calculated 53 0 - 100 mg/dL LAB CHEMISTRY METHOD 01/06/2025 3:08 PM EDT [facility] VLDL Cholesterol Jacob 18 mg/dL LAB CHEMISTRY METHOD 01/06/2025 3:08 PM EDT [facility] Non HDL Chol. (LDL+VLDL) 71 <145 mg/dL LAB CHEMISTRY METHOD 01/06/2025 3:08 PM EDT [facility] Chol/HDL Ratio 3.0 0.0 - 4.4 LAB CHEMISTRY METHOD 01/06/2025 3:08 PM T [facility] Blood Venous blood specimen / Unknown Venipuncture / Unknown 01/06/2025 12:49 PM EDT 01/06/2025 1:47 PM EDT us Real Hightower MD LAB BLOOD ORDERABLES Final Resul t Performing Organization Address City/[facility]/ZIP Co de Phone Number [facility] [address] [place] [address], [place] [phone] from Last 3 Months or Most Recently Relevant to Health Maintenance Insurance [facility] [employer] Care Teams Slitter And Rewinder Relationship Specialty Start Date End Date Real Hightower MD [address] [facility] [address] [place] [address] PCP - General 02/22/23
--- OUTSIDE RECORDS SUMMARY | 2025-08-28 01:40 | XMS_ITS | Clinical Summary ---
Author Organization [facility] Address [address] [address] Phone Care Team Providers Care Wetland Scientist Name Role Phone Unknown, Unknown Primary Care [...] PARTNERSHIP ACO ACO PARTNERSHIP ACO Care Teams Wetland Scientist Relationship Specialty Start Date End Date Unknown, Unknown, PCP - General 07/09/24 Additional Source Comments The information contained in this document represents components of the legal health record. It is not the complete legal health record.[facility]
--- OUTSIDE RECORDS SUMMARY | 2025-08-28 01:41 | XMS_ITS | Encounter Summary ---
Author Organization [employer] Address [address] [facility] [address] [place] [address] Care Team Providers Care Title Specialist Name Role Phone Unavailable Primary Care Provider [...]
[2025-08-28 01:43] LABS: Alanine Aminotransferase 122 U/L (0-40); Albumin Level 4.2 g/dL (3.5-5.0); Alkaline Phosphatase 484 U/L (39-117); Anion Gap 12 (12-20); Aspartate Amino Transferase 263 U/L (5-37); Blood Urea Nitrogen 14 mg/dL (9-16); Calcium 9.1 mg/dL (8.4-10.2); Carbon Dioxide 25 mmol/L (22-29); Chloride 105 mmol/L (96-108); Creatinine Clr Calc Pharmacy 138.1; Estimated Glomerular Filt Rate > 60; Lipase 77 U/L (8-78); Magnesium 1.9 mg/dL (1.6-2.6); Potassium 3.7 mmol/L (3.3-5.1); Sodium 138 mmol/L (135-145); Total Protein 8.2 g/dL (6.5-8.0)
--- NOTE | 2025-08-28 01:46 | ED.ABDPAIN ---
HPI - Abdominal Pain General Chief Complaint: Abdominal Pain Stated Complaint: abd pain Time Seen by Provider: 08/28/25 01:16 Source: patient Mode of arrival: ambulatory Limitations: no limitations History of Present Illness ED Provider: Dr. Zhanna Covington HPI narrative: Patient comes to the emergency room complaining of epigastric pain. Patient states that several weeks ago he was diagnosed with pancreatic inflammation. 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 Patient initially in triage reported not having nausea or vomiting, however, when I spoke with them, he is reporting nausea without vomiting. Related Data Previous Rx's ?Medication ?Instructions ?Recorded bictegravir 50 mg-emtricitabine 1 tab PO DAILY 90 days #90 tabs 07/24/25 200 mg-tenofovir alafenam 25 mg tablet (Biktarvy) cefuroxime axetil 500 mg tablet 500 mg PO BID 28 days #56 tabs 07/24/25 divalproex 500 mg tablet,delayed 1,000 mg (2 x 500 mg) PO BID 90 07/24/25 release days #360 tabs hydrocortisone 2.5 % topical cream [address] BID 30 days #30 grams 07/24/25 with perineal applicator (Proctozone-HC) metronidazole 500 mg tablet 500 mg PO BID 28 days #56 tabs 07/24/25 amoxicillin 500 mg-potassium 1 tab PO BID #14 tabs 08/28/25 clavulanate 125 mg tablet (Augmentin) metronidazole 500 mg tablet 500 mg PO BID #14 tabs 08/28/25 Allergies Allergy/AdvReac Type Severity Reaction Status Date / Time No Known Allergies Allergy Verified 08/28/25 01:25 Review of Systems Review of Systems Constitutional : No Weight loss, No Fever, No Chills, No Night Sweats, No Fatigue, No Malaise ENT/Mouth : No Hearing loss, No Ear Pain, No Nasal Congestion, No Sinus Pain, No Hoarseness, No sore throat, No Rhinorrhea, No Swallowing Difficulty Eyes: No Eye Pain, No Swelling, No Redness, No Foreign Body, No Discharge, No Vision Changes Cardiovascular : No Chest Pain, No SOB, No Dyspnea on Exertion, No Orthopnea, No Edema, No Palpitations Respiratory : No Cough, No Sputum, No Wheezing, No Smoke Exposure, No Dyspnea Gastrointestinal : No Nausea, No Vomiting, No Diarrhea, No Constipation, No abdominal Pain, No Hematochezia, No Melena Genitourinary : no irregular bleeding, No Dysuria, No Urinary Frequency, No Hematuria, No Urinary Incontinence, No Urgency, No Flank Pain, No Urinary Flow Changes, No Hesitancy Musculoskeletal : No joint pain, No Myalgias, No Joint Swelling Skin : No Skin Lesions, No rash Neuro : No Weakness, No Numbness, No Paresthesias, No Loss of Consciousness, No Dizziness, No Headache Psych : No Anxiety/Panic, No Depression, No SI/HI/AH/VH, No Social Issues, Heme/Lymph: No Bruising, No Bleeding,No Lymphadenopathy Endocrine : No Polyuria, No Polydipsia, No Temperature Intolerance [facility] Past Medical History Medical History HIV (human immunodeficiency virus infection) HIV disease Methamphetamine abuse Social History Social History Household Members: None Household Members Other:: homeless for 1 month, staying with grandma Housing: Homeless Do you presently have visiting nurse or other home services: No Alcohol intake: current Alcohol intake frequency: holidays/special occasions only Comment: 1:1 Patient Tobacco Use Status: Current everyday Tobacco user Tobacco use type: Smokeless Tobacco Second Hand Smoke Exposure: No Substance Use Type: Amphetamines Advance Directives: No Advance Directives Information Provided: Yes service: No Physical Exam ED Vital Signs: Vital Signs - 24 hr 08/28/25 01:25 08/28/25 02:35 08/28/25 06:19 Temperature 97.4 F 98.0 F 98.0 F Pulse Rate 101 H 100 93 Respiratory Rate 18 Blood Pressure 145/86 H 124/82 160/105 H Pulse Oximetry 100 99 100 Oxygen Delivery Method Room Air Room Air Room Air 08/28/25 08:17 Temperature Pulse Rate Respiratory Rate 16 Blood Pressure Pulse Oximetry Oxygen Delivery Method Room Air BMI result Body Mass Index 22.9 Course Course Course Narrative: All of patient's labs pending Patient receiving IV fluids, ketorolac and Zofran CT scan pen We requested records from [facility], we left a message, however we do not have the records available Reevaluation(s) Reevaluation #1: DR. Cruz's progress note: I assumed care for this patient await for surgical consultation input, patient was seen by Dr. Edmond in the ED, patient declined any surgical intervention at this point, asking for food, able to tolerate p.o. intake with no nausea or vomiting, patient declined acute cholecystectomy, Dr. Edmond's contact information was provided to the patient in case if he change his mind. Patient will be signing against medical advice. Patient fully understood the risk of leaving without treatment of acute cholecystitis can cause bad infection and sepsis and that may lead to . Will prescribe Augmentin x1 week and follow-up as an outpatient with Dr. Edmond. Time: 09:22 Medical Decision Making Medical Decision Making [facility] Narrative: My interpretation of labs: Patient's white blood cell count 12.2, chronic leukocytosis for the patient. Chemistry does not show any acute abnormality LFTs are elevated, AST ALT, alkaline phosphatase. Patient's LFTs has been elevated for about a month now. T bilirubin and D bilirubin within normal limits. Lipase 77, magnesium 1.9 CT scan of the abdomen shows pericholecystic fluid, sludge along the CBD without significant dilation Ultrasound: Cholelithiasis with mild wall thickening and trace pericholecystic fluid without distention, could reflect early developing cholecystitis I discussed with the patient and the imaging with Dr. Edmond, who will review the patient's imaging. Sign-out was given to my colleague Dr. Cruz Differential Diagnosis Differential Diagnoses: The differential diagnosis associated with the presentation includes (Pancreatitis, acute cholecystitis, acute on chronic abdominal pain) Admission/Observation Consideration of admission/observation: Escalation of care including admission/observation considered Consult Healthcare Provider Management of the patient was discussed with: [employer] Advanced Operator Maintainer Lab Data [facility] Lab Attestation statement: I reviewed the patient's lab results. 08/28/25 01:14 08/28/25 01:14 Labs: Lab Results 08/28/25 08/28/25 Range/Units 01:14 08:08 WBC 12.0 H (4.8-10.8) X10*3/uL RBC 4.84 (4.60-5.80) X10*6/uL Hgb 11.6 L (14.0-18.0) g/dl Hct 37.7 L (42.0-52.0) % MCV 77.9 L (80.0-98.0) fL MCH 24.0 L (27.0-33.0) pg MCHC 30.8 L (31.0-36.0) g/dl RDW 18.5 H (11.0-16.0) % Plt Count 384 D (160-400) X10*3/uL MPV 8.8 L (9.4-12.4) fL Immature Gran % (Auto) 0.2 (0.0-0.4) % Neut % (Auto) 67.8 (45-73) % Lymph % (Auto) 23.3 (20-40) % [place] % (Auto) 7.4 (2-11) % Eos % (Auto) 1.0 (0-4) % Baso % (Auto) 0.3 (0-2) % Lymph # (Auto) 2.8 (1.2-4.9) X10*3/uL [place] # (Auto) 0.9 (0.1-1.2) X10*3/uL Eos # (Auto) 0.1 (0.0-0.4) X10*3/uL Baso # (Auto) 0.0 (0.0-0.2) X10*3/uL Abs Immat Gran (auto) 0.03 (0.00-0.03) X10*3/uL Absolute Neuts (auto) 8.1 (2.0-8.3) x10*3/uL Absolute Nucleated RBC 0.000 (0.0-0.012) X10*3/uL Nucleated RBC % (auto) 0.0 (0.0-0.2) /100WBC Sodium 138 (135-145) mmol/L Potassium 3.7 (3.3-5.1) mmol/L Chloride 105 (96-108) mmol/L Carbon Dioxide 25 (22-29) mmol/L Anion Gap 12 (12-20) BUN 14 (9-16) mg/dL Creatinine 0.80 (0.5-1.4) mg/dL Estim Creat Clear Calc 138.1 Estimated GFR > 60 Random Glucose 139 H (60-115) mg/dL Calcium 9.1 (8.4-10.2) mg/dL Magnesium 1.9 (1.6-2.6) mg/dL Total Bilirubin 0.7 (0.0-1.0) mg/dL Direct Bilirubin 0.5 (0.0-0.5) mg/dL AST 263 H (5-37) U/L ALT 122 H (0-40) U/L Alkaline Phosphatase 484 H (39-117) U/L Total Protein 8.2 H (6.5-8.0) g/dL Albumin 4.2 (3.5-5.0) g/dL Lipase 77 (8-78) U/L Urine Opiates Screen Not Detected (Not Detect) Ur Buprenorphine Scrn Not Detected (Not Detect) ng/mL Ur Oxycodone Screen Not Detected (Not Detect) ng/mL Urine Methadone Screen Not Detected (Not Detect) ng/mL Urine Fentanyl Screen Not Detected (Not Detect) Ur Barbiturates Screen Not Detected (Not Detect) Ur Phencyclidine Scrn Not Detected (Not Detect) Ur Amphetamines Screen POSITIVE H (Not Detect) U Benzodiazepines Scrn Not Detected (Not Detect) Urine Cocaine Screen Not Detected (Not Detect) U Marijuana (THC) Screen Not Detected (Not Detect) Independent Interpretation I performed an independent interpretation of an: Ultrasound and CT Scan Radiology Impression Discussion of test interpretation with radiology: I have reviewed the radiologist's reading. Radiologist Impression: the visualized pancreas is normal. The aorta and inferior vena cava are normal caliber. The liver is normal in size and echotexture. There is no intrahepatic bile duct dilatation. The common duct is 6 mm in diameter. The gallbladder contains multiple stones and sludge with mild wall thickening and trace pericholecystic fluid. There is sonographic evidence of East's sign. The main portal vein is antegrade. The right kidney is 10.3 cm in length. No ascites. IMPRESSION: Cholelithiasis with mild wall thickening and trace pericholecystic fluid without distention could reflect early developing cholecystitis. Medications Administered Discontinued Medications Generic Name Dose Route Start Last Admin Trade Name Freq PRN Reason Stop Dose Admin Sodium Chloride 1,000 mls @ 999 mls/hr 08/28/25 01:44 08/28/25 06:17 Ns IVCONT 08/28/25 02:44 Infused .Q1H1M ONE Infusion Piperacillin Sod/Tazobactam 50 mls @ 100 mls/hr 08/28/25 07:35 08/28/25 08:31 Sod 3.375 gm/ Sodium Chloride IV 08/28/25 08:04 100 mls/hr ONCE ONE Administration Iohexol 85 ml 08/28/25 02:04 08/28/25 02:04 Iohexol 350 Mg/Ml 100 Ml Infus..Btl IV 08/28/25 02:05 85 ml ONCE ONE Administration Ketorolac Tromethamine 30 mg 08/28/25 01:44 08/28/25 03:05 Ketorolac Tromethamine 30 Mg/Ml Vial IVPUSH 08/28/25 01:45 30 mg ONCE ONE Administration Morphine Sulfate 2 mg 08/28/25 06:07 08/28/25 06:17 Morphine Sulfate 4 Mg/Ml Cartridge IVPUSH 08/28/25 06:08 2 mg ONCE ONE Administration Protocol Ondansetron HCl 4 mg 08/28/25 01:44 08/28/25 03:05 Ondansetron Hcl 4 Mg/2 Ml Vial IVPUSH 08/28/25 01:45 4 mg ONCE ONE Administration Critical Care Time Critical Care Time Critical Care Time: Yes Total Critical Care Time: 60 Attestation: I have personally provided critical care time. Time includes review of lab data, radiology results, discussion with consultants, and monitoring for potential decompensation. Intervention performed as documented. Discharge Plan Discharge Clinical Impression: Abdominal pain, Acute cholecystitis, Transaminitis Patient Disposition: Home, Self-Care Instructions: Cholecystitis (ED) Prescriptions: New amoxicillin-pot clavulanate [Augmentin] 500-125 mg tablet 1 tab PO BID Qty: 14 0RF metronidazole 500 mg tablet 500 mg PO BID Qty: 14 0RF No Action Biktarvy 50-200-25 mg Tablet 1 tab PO DAILY 90 Days Qty: 90 0RF cefuroxime axetil 500 mg tablet 500 mg PO BID 28 Days Qty: 56 0RF metronidazole 500 mg tablet 500 mg PO BID 28 Days Qty: 56 0RF hydrocortisone [Proctozone-HC] 2.5 % Cream With Perineal Applicator [address] BID 30 Days Qty: 30 0RF divalproex 500 mg tablet,delayed release (DR/EC) 1,000 mg PO BID 90 Days Qty: 360 0RF Referrals: Real Hightower MD [Primary Care Provider, Internal Medicine] Angelo Edmond MD [Physician, General Surgery] Stand Alone Forms: Against Medical Advice Print Language: Maori
[2025-08-28] MEDS: iohexoL 350 MG/ML 100 ML INFUS..BTL 85 ML IV (02:04)
[2025-08-28 02:35] VITALS: BP 124/82; PULSE 100; TEMP 36.7; O2SAT 99
[2025-08-28 06:19] VITALS: BP 160/105; PULSE 93; TEMP 36.7; O2SAT 100
[2025-08-28 08:17] VITALS: RESP 16
[2025-08-28 08:30] LABS: Cannabinoid Screen Urine Not Detected (Not Detect)
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
[2025-08-28 09:44] VITALS: BP 0/0; PULSE 77; RESP 16; TEMP 36.7; O2SAT 98
== END 2025-08-28 09:46 | disposition home or self-care (01) ==
PROVIDERS: Emergency Provider Emergency Medicine; PCP Internal Medicine
DX: R10.13 Epigastric pain (principal); K80.20 Calculus of gallbladder without cholecystitis without obstruction; R74.01 Elevation of levels of liver transaminase levels; F17.200 Nicotine dependence, unspecified, uncomplicated; Z71.6 Tobacco abuse counseling
CPT/HCPCS: 36415; 74177; 76705; 80053; 80307; 82248; 83690; 83735; 85025; 96361; 96365; 96375; 99284; 99285; J1885; J2270; J2405; J2543; Q9967

== ENCOUNTER → 2025-08-28 01:35 | Outpatient (BNV) | payer OTHER, SELFPAY | PROVIDERS: Emergency Provider Emergency Medicine; PCP Internal Medicine; Visit Provider Surgery | DX: R10.13 Epigastric pain (principal); K80.20 Calculus of gallbladder without cholecystitis without obstruction | CPT/HCPCS: 99284 ==

== ENCOUNTER 2025-09-07 06:28 | Emergency (ER) | payer OTHER, SELFPAY ==
[2025-09-07 06:38] VITALS: BP 140/90; PULSE 84; O2SAT 99
--- OUTSIDE RECORDS SUMMARY | 2025-09-07 07:25 | XMS_ITS | Clinical Summary ---
Author Organization [employer] Address [address] [place] [address] Care Team Providers Care Litigation Coordinator Name Role Phone Unavailable Primary Care [...]
--- OUTSIDE RECORDS SUMMARY | 2025-09-07 07:25 | XMS_ITS | Encounter Summary ---
Author Organization [employer] Address [address] [place] [address] Care Team Providers Care Passenger Rate Clerk Name Role Phone Unavailable Primary Care Provider [...]
--- OUTSIDE RECORDS SUMMARY | 2025-09-07 07:25 | XMS_ITS | Clinical Summary ---
Author Organization [facility] Address [address] [address] Phone Care Team Providers Care Under Ground Miner Name Role Phone Unknown, Unknown Primary Care [...] PARTNERSHIP ACO ACO PARTNERSHIP ACO Care Teams Under Ground Miner Relationship Specialty Start Date End Date Unknown, Unknown, PCP - General 07/09/24 Additional Source Comments The information contained in this document represents components of the legal health record. It is not the complete legal health record.[facility]
--- OUTSIDE RECORDS SUMMARY | 2025-09-07 07:25 | XMS_ITS | Clinical Summary ---
Author Organization [facility] Address [address] [place] [phone] Phone Care Team Providers Care Casing Inspector Name Role Phone Real Hightower MD Primary Care Provider [phone] Allergies No known active allergies Medications No [...] (09/24/2024): Added automatically from request for surgery [id number] HIV (human immunodeficiency virus infection) Marijuana use 11/05/2017 Depression Overview (07/21/2024): DX:Depression Marijuana use Overview (07/21/2024): DX:Marijuana use Immune deficiency disorder Encounters Date Type Department Care Team Description 06/10/2025 7:37 PM EDT - 06/10/2025 8:08 PM EDT Emergency [facility] Emergency [address] [place] [address] Discharge Disposition: Home or Self Care from Last 3 Months Immunizations Immunization Administration [...] use 11/05/2017 DX:Marijuana use Depression DX:Depression Seizures ([facility] V24, [facility] V28) Family History Medical History Relation [...] Description 09/30/2025 10:30 AM EST Office Visit [facility] [address] [place] [phone] Julianne Hillman MD [address] [place] [address] Health Maintenance Due Date Last Done Comments [...] Name Priority Date/Time Associated Diagnosis Comments EXTERNAL ULTRASOUND REPORT 08/28/2025 EXTERNAL ULTRASOUND REPORT 08/28/[address] REPORT 08/28/[address] REPORT 08/28/2025 EXTERNAL NEUROLOGY REPORT 08/07/2025 EXTERNAL NEUROLOGY REPORT [...] 01/06/2025 12:49 PM EDT Seizures (CMS/HCC V24, [facility] V28) Gall stones PTSD (post-traumatic stress disorder) Preventative health care Possible exposure to STD LIPID PANEL WITH REFLEX TO DIRECT LDL Routine 01/06/2025 12:49 PM EDT Seizures (CMS/HCC V24, CMS/HCC V28) Gall stones PTSD (post-traumatic stress disorder) Preventative health care Possible exposure to STD from Last 3 Months or Most Recently Relevant to Health Maintenance Results * External Ultrasound Report (08/28/2025) Only the most recent of2 resultswithin the time period is included. Anatomical Region Laterality Modality Ultrasound us Provider [facility] IM[facility] US PROCEDURES Final Result * External CT Report (08/28/2025) Only the most recent of11 resultswithin the time period is included. Anatomical Region Laterality Modality Computed Tomogra phy Provider [place] [facility] PROCEDURES Final Result * External Neurology Report (08/07/2025) Provider [facility] NEUROLOGY ORDERABLES Fin al Result * External Neurology Report (08/07/2025) Provider [facility] NEUROLOGY ORDERABLES Fin al Result * External Neurology Report (08/06/2025) Provider [facility] NEUROLOGY ORDERABLES Fin al Result * External Neurology Report (08/06/2025) Provider [facility] NEUROLOGY ORDERABLES Fin al Result * External Neurology Report (08/05/2025) Provider [facility] NEUROLOGY ORDERABLES Fin al Result * External Xray Report (08/03/2025) Only the most recent of6 resultswithin the time period is included. Anatomical Region Laterality Modality Radiographic Maryam ging Result [facility] IMG XR PROCEDURES Final Result * (ABNORMAL) Hepatitis C antibody (01/06/2025 12:49 PM EDT) Hepatitis C Antibody Positive (A) Negative LAB CHEMISTRY METHOD 01/06/2025 4:52 PM EDT [facility] Comment:If confirmation of t his positive HCV Ab screening test is needed, please redraw and order HCV Viral Load. Note--> This test may not be added on due to different specimen requirements. Blood Venous blood specimen / Unknown Venipuncture / Unknown 01/06/2025 12:49 PM EDT 01/06/2025 1:47 PM EDT us Real Hightower MD LAB BLOOD ORDERABLES Final Resul t [facility] [address] [place] [address], [place] [phone] * (ABNORMAL) Lipid panel with reflex to direct LDL (01/06/2025 12:49 PM EDT) Cholesterol 107 0 - 200 mg/dL LAB CHEMISTRY METHOD 01/06/2025 3:08 PM EDT [facility] Triglycerides 90 0 - 150 mg/dL LAB CHEMISTRY METHOD 01/06/2025 3:08 PM EDT [facility] HDL 36(L) >=40 mg/dL LAB CHEMISTRY METHOD 01/06/2025 3:08 PM EDT [facility] LDL Calculated 53 0 - 100 mg/dL LAB CHEMISTRY METHOD 01/06/2025 3:08 PM EDT [facility] VLDL Cholesterol Jacob 18 mg/dL LAB CHEMISTRY METHOD 01/06/2025 3:08 PM EDT [facility] Non HDL Chol. (LDL+VLDL) 71 <145 mg/dL LAB CHEMISTRY METHOD 01/06/2025 3:08 PM EDT [facility] Chol/HDL Ratio 3.0 0.0 - 4.4 LAB CHEMISTRY METHOD 01/06/2025 3:08 PM EDT [facility] Blood Venous blood specimen / Unknown Venipuncture / Unknown 01/06/2025 12:49 PM EDT 01/06/2025 1:47 PM EDT us Real Hightower MD LAB BLOOD ORDERABLES Final Resul t [facility] [address] [place] [address], [place] [phone] from Last 3 Months or Most Recently Relevant to Health Maintenance Insurance [facility] [employer] Care Teams Casing Inspector Relationship Specialty Start Date End Date Real Hightower MD [address] [facility] [address] [place] [address] PCP - General 02/22/23
--- OUTSIDE RECORDS SUMMARY | 2025-09-07 07:25 | XMS_ITS | Clinical Summary ---
Author Organization [facility] Address [address] [place] [address] Care Team Providers Care Probation And Parole Officer Name Role Phone Real Hightower MD PhD [...] (11/17/2021): Added automatically from request for surgery [id number] GI bleed 11/17/2021 Encounters Date Type Department Care Team Description 08/04/2025 1:35 AM EST Ancillary Procedure [facility] Radiology [address] [place] [phone] Provider, File Room 08/04/2025 1:35 AM EST Ancillary Procedure [facility] Radiology [address] [place] [phone] Provider, File Room 08/04/2025 1:30 AM EST Ancillary Procedure [facility] Radiology [address] [place] [phone] Provider, File Room 08/04/2025 12:58 AM EST - 08/10/2025 11:09 AM EST Hospital Encounter [place] [id number] [address] [place] [phone] Juani De Jesus MD Velamakanni, Sruti S, [...] any time in the past 12 m [facility], were you homeless or living in a penitentiary (including now)? Patient unable to answer 08/04/2025 [facility] Utilities Answer Date Recorded In the past 12 months has th e [employer], gas, oil, or water [employer] threatened to shut off services in your [...] Required) Completed Medical Devices Implanted Type Area Drawing Tender Device Identifier Shelf Expiration Date Model / Serial / Lot Resolution Ultra Clip Implanted:Qty: 2 on 11/19/2021 by Abril Machado MD at [facility] [employer] [facility] [id number] / / Description:Not an implant. Charging purposes [...] 4.0 - 11.0 Thou/uL 08/10/2025 8:06 AM [facility] Platelet Count 554(H) 150 - 450 Thou/uL 08/10/2025 8:06 AM [facility] Hemoglobin 10.6(L) 13.0 - 17.7 g/dL 08/10/2025 8:06 AM [facility] Hematocrit 34.9(L) 39.0 - 54.0 % 08/10/2025 8:06 AM [facility] Red Blood Cell Count 4.54 4.50 - 6.20 Mil/uL 08/10/2025 8:06 AM [facility] MCV 77(L) 80 - 100 fL 08/10/2025 8:06 AM [facility] MCH 23.3(L) 26.0 - 34.0 pg 08/10/2025 8:06 AM [facility] MCHC 30.4 30.0 - 36.0 g/dL 08/10/2025 8:06 AM [facility] RDW 20.3(H) 11.5 - 14.5 % 08/10/2025 8:06 AM [facility] MPV 9.3 7.5 - 12.5 fL 08/10/2025 8:06 AM [facility] Blood Blood specimen / Unknown 08/10/2025 6:32 AM EST 08/10/2025 7:51 AM EST us Keerthi Sesay MD LAB BLOOD [place] [address], [place] [address] * (ABNORMAL) HEPATIC FUNCTION PANEL (08/10/2025 6:32 AM EST) Only the most recent of4 resultswithin the time period is included. Alkaline Phosphatase 1,079(H) 45 - 128 U/L 08/10/2025 8:28 AM [facility] Aspartate Aminotrans (AST) 56(H) 10 - 55 U/L 08/10/2025 8:28 AM [facility] Alanine Aminotrans (ALT) 75(H) 10 - 55 U/L 08/10/2025 8:28 AM [facility] Bilirubin, Total 0.9 0.2 - 1.0 mg/dL 08/10/2025 8:28 AM [facility] Protein, Total 7.4 6.3 - 8.3 g/dL 08/10/2025 8:28 AM [facility] Albumin 3.2(L) 3.5 - 5.0 g/dL 08/10/2025 8:28 AM [facility] Bilirubin, Direct 0.7(H) 0 - 0.2 mg/dL 08/10/2025 8:28 AM [facility] Globulin 4.2(H) 1.5 - 3.9 g/dL 08/10/2025 8:28 AM [facility] Albumin/Globulin Ratio 0.8(L) 1.0 - 3.0 Ratio 08/10/2025 8:28 AM [facility] Blood Blood specimen / Unknown 08/10/2025 6:32 AM EST 08/10/2025 7:51 AM EST Keerthi Sesay MD LAB BLOOD ORDERABLES Final Resu lt [address] [address], [address] [address] * (ABNORMAL) Basic Metabolic Panel (08/10/2025 6:32 AM EST) Only the most recent of5 resultswithin the time period is included. Glucose 96 65 - 99 mg/dL 08/10/2025 8:28 AM [facility] Comment:Fasting: <100 mg/dL, Non-Fasting: <200 mg/dL (ADA 2004) Blood Urea Nitrogen (BUN) 9 8 - 21 mg/dL 08/10/2025 8:28 AM [facility] Creatinine 0.78 0.50 - 1.30 mg/dL 08/10/2025 8:28 AM [facility] eGFR >90 >59 08/10/2025 8:28 AM [facility] Comment:CKD-EPI (2020) in mL /min/1.73 sq meters. Sodium 139 136 - 145 mmol/L 08/10/2025 8:28 AM [facility] Potassium 4.4 3.4 - 5.3 mmol/L 08/10/2025 8:28 AM [facility] Chloride 106 98 - 107 mmol/L 08/10/2025 8:28 AM [facility] CO2 23 22 - 33 mmol/L 08/10/2025 8:28 AM [facility] Anion Gap 10 7 - 17 08/10/2025 8:28 AM [facility] Calcium 8.6(L) 8.7 - 10.5 mg/dL 08/10/2025 8:28 AM [facility] BUN/Creatinine Ratio 12 10.0 - 25.0 Ratio 08/10/2025 8:28 AM [facility] Blood Blood specimen / Unknown 08/10/2025 6:32 AM EST 08/10/2025 7:51 AM EST Keerthi Sesay MD LAB BLOOD ORDERABLES Final Resu lt Performing Organization Address [facility] Co de Phone Number [facility] [address] [place] [address], [address] [address] * ECG 12 lead (08/09/2025 12:42 AM EST) Only the most recent of3 resultswithin the time period is included. Ventricular rate 93 BPM EKG [facility] Atrial rate 93 BPM EKG [facility] P-R interval 108 ms EKG [facility] QRS duration 80 ms EKG [facility] Q-T interval 332 ms EKG [facility] QTC calculation (Bazett) 413 ms EKG [facility] P axis 105 degrees EKG [facility] R axis 89 degrees EKG [facility] T axis 166 degrees EKG [facility] 08/09/2025 12:4 2 AM EST Narrative EKG [facility] - 08/09/2025 9:00 PM EST Sinus rhythm with short RI Lateral infarct , age undetermined ST & T wave abnormality, consider inferior ischemia Abnormal ECG When compared with ECG of 07-Aug-2025 12:24, Lateral infarct is now Present T wave inversion now evident in Lateral leads Confirmed by DO Villanueva Kyla ([id number]) on 08/09/2025 9:00:28 PM Procedure Note Belkis Villanueva DO - 08/09/2025 Sinus rhythm with short RI Lateral infarct , age undetermined ST & T wave abnormality, consider inferior ischemia Abnormal ECG When compared with ECG of 07-Aug-2025 12:24, Lateral infarct is now Present T wave inversion now evident in Lateral leads Confirmed by DO Villanueva Kyla ([id number]) on 08/09/2025 9:00:28 PM Ruth Guaman PA-C ECG ORDERABLES Final Res ult EKG [facility] * Phosphorus (AM) (08/08/2025 11:12 AM EST) Only the most recent of3 resultswithin the time period is included. Phosphorus 3.3 2.7 - 4.5 mg/dL 08/08/2025 12:34 PM EST [facility] Blood Blood specimen / Unknown 08/08/2025 11:12 AM EST 08/08/2025 12:08 PM EST Loretta O Brett HERNANDEZ LAB BLOOD ORDERABLES Final Result Performing Organization Address [facility] [place] [address], [place] [address] * Magnesium (AM) (08/08/2025 11:12 AM EST) Only the most recent of4 resultswithin the time period is included. Magnesium 1.8 1.6 - 2.7 mg/dL 08/08/2025 12:34 PM EST [facility] Blood Blood specimen / Unknown 08/08/2025 11:12 AM EST 08/08/2025 12:08 PM EST us Loretta O Brett CHIANGN LAB BLOOD ORDERABLES Final Result Performing Organization Address [facility] [place] [address], [place] [address] * EEG < 24 HR W/VIDEO -REDUCED SERVICE (08/07/2025 1:26 PM EST) Narrative [facility] - 08/07/2025 7:31 AM EST Inder Garcia MD 08/07/2025 1:39 PM ADULT INPATIENT CONTINUOUS VIDEO-EEG MONITORING (LTM) REPORT Facility: [facility] Patient and : Everardo Cramer 2000 Date [...] Seizures/Events: Two overnight runs of bilateral paracentral CIVIL ENGINEERING DRAFTSPERSON (at 20:41 and 22:58) with evolution were [...] encephalopathy. Two brief runs of bilateral paracentral CIVIL ENGINEERING DRAFTSPERSON overnight (20:41 and 22:58) were suspicious for [...] Inder Garcia MD, PhD. ABPN/ ABPN epilepsy [facility] Leyla KAY-Madeline NEUROLOGY ORDERABLES Farrukh dorita Result - Final Performing Organization Address [facility]/ZIP Co de Phone Number [facility] [address] [place] [address], [place] * EEG 24 HOUR WITH VIDEO (08/07/2025 7:44 AM EST) Carlostalha KAY-C NEUROLOGY ORDERABLES Fin al Result Performing Organization Address [facility] Co de Phone Number [facility] [address] [place] [address], [place] * POCT Glucose, Fingerstick (08/06/2025 6:36 PM EST) Only the most recent of20 resultswithin the time period is included. POC Glucose 99 65 - 99 mg/dL 08/06/2025 6:37 PM EST Blood specimen / Unknown 08/06/2025 6:36 PM EST 08/06/2025 6:37 PM EST Juani De Jesus MD POINT OF CARE TEST ORDERABLES Fi nal Result Performing Organization Address [facility] Co de Phone Number HOSPITAL LAB See Below * EEG 24 HOUR WITH VIDEO (08/06/2025 7:59 AM EST) Narrative [facility] - 08/06/2025 7:59 AM EST Gi Anderson MD 08/06/2025 4:31 PM ADULT INPATIENT CONTINUOUS VIDEO-EEG MONITORING (LTM) REPORT Facility: [facility] Patient and : Everardo Cramer 2000 Date [...] Seizures/Events: Two overnight runs of bilateral paracentral CIVIL ENGINEERING DRAFTSPERSON (at 20:41 and 22:58) with evolution were [...] encephalopathy. Two brief runs of bilateral paracentral CIVIL ENGINEERING DRAFTSPERSON overnight (20:41 and 22:58) were suspicious for [...] TEAM. Gi Giron MD. ABPN/ ABPN Epilepsy [facility] Leyla Newby PA-C NEUROLOGY ORDERABLES Farrukh dorita Result - Final [facility] [address] [place] [address], [place] * XR Chest 1 view-Portable (08/06/2025 [...] the ming. 2. No acute cardiopulmonary findings. Javier Johnson PA-C IMG DIAGNOSTIC IMAGING ORDER HAYLEY Final Result * (ABNORMAL) Blood Gas with Cooximetry, Arterial (08/06/2025 12:30 AM EST) Only the most recent of2 resultswithin the time period is included. Respiratory Info VENT 40% 08/06/20 12:14 AM [facility] pH, Arterial 7.41 7.35 - 7.45 08/06/2025 1:06 AM [facility] pCO2, Arterial 35 32 - 45 mmHG 08/06/2025 1:06 AM [facility] pO2, Arterial 117(H) 75 - 95 mmHG 08/06/2025 1:06 AM [facility] CO2, Total 23 22 - 28 mmol/L 08/06/2025 1:06 AM [facility] P/F Ratio 293 08/06/2025 1:06 AM [facility] Comment:P/F < 300 or < 200: question ALI or ARDS. Base Deficiency 2.3 mmol/L 1:06 AM [facility] Comment:Reference Range: Neg ative 2 to Positive 3 Hemogloblin, Total 8.9(L) 13.0 - 17.7 g/dL 08/06/2025 1:06 AM [facility] O2 Saturation, Arterial 98.6(H) 94 - 97 % 08/06/2025 1:06 AM [facility] Carboxyhemoglobin 0.9 0.0 - 2.0 % 08/06/2025 1:06 AM [facility] Methemoglobin 1.2 0.4 - 1.5 % 08/06/2025 1:06 AM [facility] O2 Content, Arterial 12.2(L) 17.6 - 24.3 mL/dL 08/06/2025 1:06 AM [facility] Blood Blood specimen / Unknown 08/06/2025 12:30 AM EST 08/06/2025 1:02 AM EST us Javier Johnson PA-C LAB BLOOD [place] [address], [address] [address] * Triglycerides (08/06/2025 12:30 AM EST) Triglycerides 122 <150 mg/dL 08/06/2025 1:39 AM [facility] Blood Blood specimen / Unknown 08/06/2025 12:30 AM EST 08/06/2025 1:02 AM EST Javier Johnson PA-C LAB BLOOD ORDERABLES Final R esult Performing Organization Address [facility] Co de Phone Number [address] [address], [address] [address] * Varicella Zoster Virus PCR (In House) (08/05/2025 3:55 PM EST) VZV PCR Source Lumbar Spine 08/05/2025 3:54 PM EST [facility] Comment:Fluid, Cerebrospinal VZV PCR Result Not Detected Not Detected 08/06/2025 9:33 AM EST [facility] Fluid, Cerebrospinal (Lumbar Spine) 08/05/2025 3:55 PM EST 08/05/2025 4:54 PM EST Javier Johnson PA-C MICROBIOLOGY - GENERAL ORDER HAYLEY Final Result Performing Organization Address City/[facility] Co de Phone Number [facility] [address] [place] [address], [place] [address] * NM Hepatobiliary (08/05/2025 3:38 PM EST) [...] the patient's presenting symptoms. Jeff Bah APRN [facility] [place] ORDERABLES Final Res ult * Herpes Simplex Virus (HSV) 1/2 PCR (CSF) (08/05/2025 3:16 PM EST) HSV PCR Source Fluid, Cerebrospinal 08/05/2025 3:15 PM [facility] Comment:Fluid, Cerebrospinal Herpes Simplex Virus 1 Not Detected Not Detected 08/06/2025 9:33 AM [facility] Herpes Simplex Virus 2 Not Detected Not Detected 08/06/2025 9:33 AM [facility] Fluid, Cerebrospinal Cerebrospinal fluid specimen / Unknown 08/05/2025 3:16 PM EST 08/05/2025 4:53 PM EST Javier KAY-C BODY FLUIDS AND STOOLS ORDER HAYLEY Final Result [facility] [address] [place] [address], [address] [address] * Fungal Culture (non-blood) (08/05/2025 3:15 PM EST) Pathologist [facility] Direct Smear Suggests No fungal elements 08/06/2025 10:38 AM [facility] Culture No fungus isolated 08/20/2025 8:14 AM [facility] Fluid, Cerebrospinal (Lumbar Spine) 08/05/2025 3:15 PM EST 08/05/2025 4:52 PM EST Comment:Fluid, Cerebrospinal Javier Johnson PA-C MICROBIOLOGY - GENERAL ORDER HAYLEY Final Result [facility] [address] [place] [address], * Meningitis/Encephalitis PCR Panel (08/05/2025 3:15 PM EST) [facility] Escherichia coli K1 Not Detected Not Detected 08/06/2025 7:28 AM [facility] Haemophilus influenzae Not Detected Not Detected 08/06/2025 7:28 AM [facility] Listeria monocytogenes Not Detected Not Detected 08/06/2025 7:28 AM [facility] Neisseria Meningitidis Not Detected Not Detected 08/06/2025 7:28 AM [facility] Streptococcus agalactiae Not Detected Not Detected 08/06/2025 7:28 AM [facility] Streptococcus pneumoniae Not Detected Not Detected 08/06/2025 7:28 AM [facility] Cytomegalovirus (CMV) Not Detected Not Detected 08/06/2025 7:28 AM [facility] Enterovirus Not Detected Not Detected 08/06/2025 7:28 AM EST [facility] Herpes Simplex Virus 1 Not Detected Not Detected 08/06/2025 7:28 AM [facility] Herpes Simplex Virus 2 Not Detected Not Detected 08/06/2025 7:28 AM [facility] Human Herpesvirus 6 (HHV-6) Not Detected Not Detected 08/06/2025 7:28 AM [facility] Human Parechovirus Not Detected Not Detected 08/06/2025 7:28 AM [facility] Varicella Zoster Virus (VZV) Not Detected Not Detected 08/06/2025 7:28 AM [facility] Cryptococcus neoformanns/meng Not Detected Not Detected 08/06/2025 7:28 AM [facility] Fluid, Cerebrospinal (Lumbar Spine) 08/05/2025 3:15 PM EST 08/05/2025 4:52 PM EST us Javier Johnson PA-C MICROBIOLOGY - GENERAL ORDER HAYLEY Final Result Performing Organization Address City/State/[facility] Co de Phone Number [facility] [address] [place] [address], * LUMBAR PUNCTURE (08/05/2025 2:46 PM EST) Narrative Javier Johnson PA-C - 08/05/2025 2:46 PM EST Javier Johnson PA-C 08/05/2025 3:48 PM Lumbar Puncture Date/Time: 08/05/2025 2:46 PM Performed by: Javier Johnson PA-C Authorized by: Javier Johnson PA-C Consent: Written consent obtained Consent given by: power of state's attorney Required items: required blood products, implants, devices, and special equipment available Patient identity confirmed: arm band, hospital-assigned identification number and anonymous protocol, patient vented/unresponsive Time out: Immediately prior to procedure a time out was called to verify the correct patient, procedure, equipment, learning support resource room teacher and site/side marked as required. Indications: evaluation [...] No organisms seen 08/05/2025 5:49 PM EST [facility] Culture Negative after 5 days 08/11/2025 7:38 AM EST [facility] Fluid, Cerebrospinal (Lumbar Spine) 08/05/2025 1:59 PM EST 08/05/2025 4:48 PM EST Comment:Fluid, Cerebrospinal us Javier Johnson PA-C MICROBIOLOGY - GENERAL ORDER HAYLEY Final Result [facility] [address] [place] [address], [address] [address] * Protein, Total, CSF (08/05/2025 1:59 PM EST) Protein, CSF 23 15 - 45 mg/dL 08/05/2025 5:07 PM EST [facility] Fluid, Cerebrospinal Cerebrospinal fluid specimen / Unknown 08/05/2025 1:59 PM EST 08/05/2025 2:57 PM EST Javier Johnson PA-C BODY FLUIDS AND STOOLS ORDER HAYLEY Final Result Performing Organization Address City/[facility] Co de Phone Number [address] [address], [address] [address] * Cryptococcus Antigen with Reflex to Titer (08/05/2025 1:59 PM EST) Specimen Source Lumbar Spine 08/05/2025 1:59 PM [facility] Comment:Fluid, Cerebrospinal Cryptococcus Antigen Negative Negative 08/06/2025 11:12 AM [facility] Fluid, Cerebrospinal (Lumbar Spine) 08/05/2025 1:59 PM EST 08/05/2025 2:58 PM EST Javier Johnson PA-C MICROBIOLOGY - GENERAL ORDER HAYLEY Final Result Performing Organization Address City/[facility]/ZIP Co de Phone Number [facility] [address] [place] [address], [address] [address] * Cell Count, Reflex Differential, CSF (08/05/2025 1:59 PM EST) Tube Number 4 08/05/2025 5:30 PM [facility] Appearance, CSF Clear Clear 5:30 PM [facility] Color Colorless Colorless 08/05/2025 5:30 PM [facility] Xanthochromia Absent Absent 08/05/2025 5:30 PM [facility] Nucleated Cells, CSF 1 0 - 5 /CUMM 08/05/2025 5:30 PM [facility] RBC, CSF 0 0 /CUMM 08/05/2025 5:30 PM EST [facility] Fluid, Cerebrospinal Cerebrospinal fluid specimen / Unknown 08/05/2025 1:59 PM EST 08/05/2025 2:57 PM EST Javier Johnson PA-C BODY FLUIDS AND STOOLS ORDER HAYLEY Final Result Performing Organization Address [facility] [place] [address], [place] [address] * Glucose, CSF (08/05/2025 1:59 PM EST) Glucose, CSF 49 40 - 70 mg/dL 08/05/2025 5:07 PM EST [facility] Fluid, Cerebrospinal Cerebrospinal fluid specimen / Unknown 08/05/2025 1:59 PM EST 08/05/2025 2:57 PM EST Javier Johnson PA-C BODY FLUIDS AND STOOLS ORDER HAYLEY Final Result Performing Organization Address [facility] [place] [address], [place] [address] * EEG 24 HOUR WITH VIDEO (08/05/2025 7:51 AM EST) Narrative [facility] - 08/05/2025 7:51 AM EST Gi Anderson MD 08/05/2025 11:55 AM ADULT INPATIENT CONTINUOUS VIDEO-EEG MONITORING (LTM) REPORT Facility: [facility] Patient and : Everardo Cramer 2000 Date [...] TEAM. Gi Giron MD. ABPN/ ABPN Epilepsy [facility] Leyla Newby PA-C NEUROLOGY ORDERABLES Farrukh dorita Result - Final [facility] [address] [place] [address], * Hemoglobin A1c with Estimated Average Glucose (Routine) (08/05/2025 2:45 AM EST) Only the most recent of2 resultswithin the time period is included. Hemoglobin A1C 5.5 <5.7 % 08/05/2025 3:33 AM [facility] Comment: A1c% Interpretation 5.7 - 6.0 Increase risk of diabetes 6.1 - 6.4 Higher risk of diabetes > or = 6.5 Consistent with diabetes Diabetes Care, 33(Supp 1):S1-S61, 2009 Estimated Average Glucose 111 mg/dL 08/05/2025 3:33 AM [facility] Blood Blood specimen / Unknown 08/05/2025 2:45 AM EST 08/05/2025 3:02 AM EST Leyla Newby PA-C LAB BLOOD [place] [address], [address] [address] * (ABNORMAL) Comprehensive Metabolic Panel (08/05/2025 2:45 AM EST) Glucose 79 65 - 99 mg/dL 08/05/2025 3:31 AM [facility] Comment:Fasting: <100 mg/dL, Non-Fasting: <200 mg/dL (ADA 2005) Blood Urea Nitrogen (BUN) 5(L) 8 - 21 mg/dL 08/05/2025 3:31 AM [facility] Creatinine 0.79 0.50 - 1.30 mg/dL 08/05/2025 3:31 AM [facility] eGFR >90 >59 08/05/2025 3:31 AM [facility] Comment:CKD-EPI (2020) in mL /min/1.73 sq meters. Sodium 139 136 - 145 mmol/L 08/05/2025 3:31 AM [facility] Potassium 3.3(L) 3.4 - 5.3 mmol/L 08/05/2025 3:31 AM [facility] Chloride 110(H) 98 - 107 mmol/L 08/05/2025 3:31 AM [facility] CO2 20(L) 22 - 33 mmol/L 08/05/2025 3:31 AM [facility] Calcium 7.9(L) 8.7 - 10.5 mg/dL 08/05/2025 3:31 AM [facility] Alkaline Phosphatase 614(H) 45 - 128 U/L 08/05/2025 3:31 AM [facility] Aspartate Aminotrans (AST) 85(H) 10 - 55 U/L 08/05/2025 3:31 AM [facility] Alanine Aminotrans (ALT) 108(H) 10 - 55 U/L 08/05/2025 3:31 AM [facility] Bilirubin, Total 2.6(H) 0.2 - 1.0 mg/dL 08/05/2025 3:31 AM [facility] Protein, Total 6.1(L) 6.3 - 8.3 g/dL 08/05/2025 3:31 AM [facility] Albumin 2.5(L) 3.5 - 5.0 g/dL 08/05/2025 3:31 AM [facility] BUN/Creatinine Ratio 6(L) 10.0 - 25.0 Ratio 08/05/2025 3:31 AM [facility] Globulin 3.6 1.5 - 3.9 g/dL 08/05/2025 3:31 AM [facility] Albumin/Globulin Ratio 0.7(L) 1.0 - 3.0 Ratio 08/05/2025 3:31 AM EST [facility] Anion Gap 9 7 - 17 08/05/2025 3:31 AM EST [facility] Blood Blood specimen / Unknown 08/05/2025 2:45 AM EST 08/05/2025 3:02 AM EST Leyla Newby PA-C LAB BLOOD ORDERABLES Fin al Result [address] [address], [address] [address] * MRI Brain w w/o contrast (08/05/2025 [...] INDICATION: Male, 25 years old. 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 given non compliance w/ HIV TECHNIQUE: [...] (ABNORMAL) RPR Titer (08/04/2025 7:00 AM EST) [facility] RPR Titer 1:2(A) Nonreactive TITER 08/05/2025 1:21 PM EST [facility] 08/04/2025 7:00 AM EST 08/04/2025 7:55 AM EST Jeff Bah APRN LAB BLOOD ORDERABLES Final Result [facility] [address] [place] [address], * (ABNORMAL) Syphilis Antibodies, reflex to RPR Titer (08/04/2025 7:00 AM EST) Syphilis Antibody Reflex RPR Titer and TPA Reactive( A) Nonreactive 08/05/2025 10:36 AM EST [facility] Comment:Reactive results of initial diagnostic test suggest Treponema pallidum IgM and IgG antibodies and must be confirmed by a nontreponemal lab test. RPR reflex to TPPA to follow. Blood Blood specimen / Unknown 08/04/2025 7:00 AM EST 08/04/2025 7:55 AM EST Jeff Bah APRN LAB BLOOD ORDERABLES Final Result [facility] [address] [place] [address], [place] * (ABNORMAL) Hepatitis C Viral Load, Quantitative (08/04/2025 7:00 AM EST) Pathologist [facility] HCV RNA (IU/mL) 1,889,753(H) <10 IU/mL 08/11/2025 3:05 PM [facility] HCV RNA (log10) 6.28(H) <1.00 log10 IU/mL 08/11/2025 3:05 PM [facility] Interpretation Detected 08/11/2025 3:05 PM [facility] Comment:Performed by FDA elham roved [employer] T[employer]. Linear range is 10 to 100,000,000 IU/mL. HCV Genotyping is not recommended for viral loads below 300 IU/mL. 08/04/2025 7:00 AM EST 08/04/2025 7:55 AM EST Comment:Serum~Plasma Jeff Bah APRN LAB BLOOD ORDERABLES Final Result Performing Organization Address City/[facility]/ZIP Co de Phone Number [facility] [address] [place] [address], [place] * (ABNORMAL) Iron and Total Iron Binding Capacity (08/04/2025 7:00 AM EST) Pathologist [facility] Iron 24(L) 53 - 167 ug/dL 08/04/2025 8:17 AM [facility] UIBC 253 112 - 346 ug/dL 08/04/2025 8:17 AM [facility] Total Iron Binding Capacity 277 100 - 400 ug/dL 08/04/2025 8:17 AM [facility] Iron Sat 9(L) 20 - 50 % 08/04/2025 8:17 AM [facility] Blood Blood specimen / Unknown 08/04/2025 7:00 AM EST 08/04/2025 7:55 AM EST Jeff Bah [employer] LAB BLOOD ORDERABLES Final Result Performing Organization Address City/[facility]/[place] [address], [place] [address] * (ABNORMAL) CD4/CD8 Cell Count with Ratio (08/04/2025 7:00 AM EST) [facility] CD4+ T Cells (%) 15(L) 34 - 58 % 08/04/2025 2:17 PM [facility] CD4+ T Cells (Absolute) 349(L) 535 - 1,451 cells/cumm 08/04/2025 2:17 PM [facility] CD8+ T Cells (%) 54(H) 7 - 35 % 08/04/2025 2:17 PM [facility] CD8+ T Cells (Absolute) 1,293(H) 139 - 783 cells/cumm 08/04/2025 2:17 PM [facility] CD4:CD8 Ratio 0.27(L) 1.50 - 2.70 Ratio 08/04/2025 2:17 PM [facility] Blood Blood specimen / Unknown 08/04/2025 7:00 AM EST 08/04/2025 7:55 AM EST us Jeff Bah [employer] LAB BLOOD ORDERABLES Final Result [address] [address], [address] [address] * (ABNORMAL) Hepatitis Panel, Acute (08/04/2025 7:00 AM EST) Pathologist [facility] Hepatitis A Antibody IgM Nonreactive Nonreactive 08/05/2025 10:36 AM [facility] Hepatitis B Core Antibody IgM Nonreactive Nonreactive 08/05/2025 10:36 AM [facility] Hepatitis B Surface Ag Screen Nonreactive Nonreactive 08/05/2025 10:36 AM [facility] Hepatitis C Antibody Reactive(A) Nonreactive 08/05/2025 10:36 AM [facility] Comment:Presumptive evidence of antibodies to HCV. Hepatitis C Viral Load, Quantitative results to follow. Hepatitis Interpretation: These results indicate Hepatitis C infection. 08/05/2025 10:36 AM [facility] Blood Blood specimen / Unknown 08/04/2025 7:00 AM EST 08/04/2025 7:55 AM EST Comment:Serum~Plasma Jeff Bah APRN LAB BLOOD ORDERABLES Final Result [facility] [address] [place] [address], * Ferritin (08/04/2025 7:00 AM EST) Ferritin 84 30 - 400 ug/L 08/04/2025 8:17 AM [facility] Blood Blood specimen / Unknown 08/04/2025 7:00 AM EST 08/04/2025 7:55 AM EST Jeff Bah APRN LAB [place] [address], [place] [address] * (ABNORMAL) Valproic Acid Level, Total (08/04/2025 7:00 AM EST) Valproic Acid (Depakote) <3(L) 50 - 100 mg/L 08/04/2025 2:58 PM [facility] 08/04/2025 7:00 AM EST 08/04/2025 7:55 AM EST Jeff Bah [employer] LAB BLOOD ORDERABLES Final Result [address] [address], [facility] [address] [place] [address] * US Abdomen-Limited (08/04/2025 6:17 AM EST) Anatomical Region Laterality Modality Abdomen Ultrasound 08/04/2025 5:57 AM EST Impressions 08/04/2025 7:25 AM EST 1. Gallbladder wall thickening with intraluminal cholelithiasis suspicious for acute cholecystitis. 2. Nondilated common bile duct with wall thickening, which can be seen with biliary infectious/inflammatory processes (cholangitis). Clinical correlation advised. 3. Hepatomegaly. Interpreted by: Yunier Ochoa MD Telephone Operator I personally reviewed the images and the resident's preliminary report and AGREE with the report as it is now presented ([id number]). Narrative 08/04/2025 7:25 AM EST EXAMINATION: US ABDOMEN LIMITED (RIGHT UPPER QUADRANT) CLINICAL INFORMATION: question of cholecystitis on CT COMPARISON: CT abdomen and pelvis August 03, 2025 TECHNIQUE: Real-time imaging of the right upper quadrant abdominal viscera. Based on care technician report, examination is limited by portable [...] right upper quadrant abdominal viscera. Based on care technician report, examination is limited by portable [...] 3. Hepatomegaly. Interpreted by: Yunier Ochoa MD Telephone Operator I personally reviewed the images and the resident's preliminary report and AGREE with the report as it is now presented ([email or web address]). Juani De Jesus MD [facility] US ORDERABLES Final Result * Toxoplasma IgG Reflex to IgM (08/04/2025 3:30 AM EST) Toxoplasma Antibody, IgG Negative Negative 08/06/2025 1:56 PM EST [facility] Comment:Absence of detectabl e Toxoplasma gondii IgG antibodies. A negative result does not rule out acute infection. Blood Blood specimen / Unknown 08/04/2025 3:30 AM EST 08/04/2025 1:01 PM EST us Leyla Newby PA-C LAB BLOOD ORDERABLES Fin al Result [facility] [address] [place] [address], [place] * (ABNORMAL) Valproic Acid Level, Free (08/04/2025 3:30 AM EST) Valproic Acid, Free <4.0(L) 4.8 - 17.3 mg/L 08/06/2025 1:33 PM EST [facility] Comment: (NOTE) Note: Non-linear drug binding properties result in the fraction of Free Valproic Acid increasing as total drug increases. The free fraction may range from 5% to 25% for the total drug range of 30-160 mg/L. Blood Blood specimen / Unknown 08/04/2025 3:30 AM EST 08/04/2025 3:40 AM EST us Alberto Cross MD LAB BLOOD ORDERABLES Mehreen l Result [facility], [place] [address] [facility] [address] [address] [place], [place] , [employer], [id number] [place] [address] * Lactate Level X 2 (SEPSIS) (08/04/2025 3:04 AM EST) Only the most recent of2 resultswithin the time period is included. Lactic Acid 1.5 0.5 - 1.9 mmol/L 08/04/2025 3:52 AM EST [facility] Blood Blood specimen / Unknown 08/04/2025 3:04 AM EST 08/04/2025 3:25 AM EST us Juani De Jesus MD LAB BLOOD ORDERABLES Final Resul t Performing Organization Address City/[facility]/[place] [address], [place] [address] * Blood Culture (08/04/2025 1:45 AM EST) Culture Sterile after 5 days 08/09/2025 7:38 AM EST [facility] Blood Blood specimen / Unknown 08/04/2025 1:45 AM EST 08/04/2025 2:24 AM EST Comment:Blood us Juani De Jesus MD LAB BLOOD ORDERABLES Final Resul t [facility] [address] [place] [address], [place] * (ABNORMAL) Complete Blood Count, with Differential (08/04/2025 1:45 AM EST) White Blood Cell Count 12.9(H) 4.0 - 11.0 Thou/uL 08/04/2025 2:11 AM [facility] Platelet Count 510(H) 150 - 450 Thou/uL 08/04/2025 2:11 AM [facility] Hemoglobin 9.9(L) 13.0 - 17.7 g/dL 08/04/2025 2:11 AM [facility] Hematocrit 31.9(L) 39.0 - 54.0 % 08/04/2025 2:11 AM [facility] Red Blood Cell Count 4.04(L) 4.50 - 6.20 Mil/uL 08/04/2025 2:11 AM [facility] MCV 79(L) 80 - 100 fL 08/04/2025 2:11 AM [facility] MCH 24.5(L) 26.0 - 34.0 pg 08/04/2025 2:11 AM [facility] MCHC 31.0 30.0 - 36.0 g/dL 08/04/2025 2:11 AM [facility] RDW 20.0(H) 11.5 - 14.5 % 08/04/2025 2:11 AM [facility] MPV 8.5 7.5 - 12.5 fL 08/04/2025 2:11 AM [facility] Neutrophils Auto 73.7 % 08/04/20 2:11 AM [facility] Immature Granulocytes 0.3 % 08/04/2025 2:11 AM [facility] Lymphocytes Auto 18.1 % 08/04/20 2:11 AM [facility] Monocytes Auto 7.2 % 08/04/2025 2:11 AM [facility] Eosinophils Auto 0.5 % 08/04/20 2:11 AM [facility] Basophils Auto 0.2 % 08/04/2025 2:11 AM [facility] Abs Neutrophils Auto 9.48(H) 2.00 - 7.50 Thou/uL 08/04/2025 2:11 AM [facility] Abs Immature Granulocytes 0.04 0.00 - 0.10 Thou/uL 08/04/2025 2:11 AM [facility] Abs Lymphocytes Auto 2.33 1.50 - 4.50 Thou/uL 08/04/2025 2:11 AM [facility] Abs Monocytes Auto 0.92 0.20 - 1.50 Thou/uL 08/04/2025 2:11 AM [facility] Abs Eosinophils Auto 0.06 0.00 - 0.70 Thou/uL 08/04/2025 2:11 AM [facility] Abs Basophils Auto 0.03 0.00 - 0.20 Thou/uL 08/04/2025 2:11 AM [facility] Blood Blood specimen / Unknown 08/04/2025 1:45 AM EST 08/04/2025 1:58 AM EST us Juani De Jesus MD LAB BLOOD ORDERABLES Final Resul t Performing Organization Address [facility] [place] [address], [place] [address] * INR (08/04/2025 1:45 AM EST) Anticoagulant NO ANTI COAGULANT MEDS 08/04/2025 1:04 AM [facility] Prothrombin Time (PT) 11.2 10.0 - 13.5 seconds 08/04/2025 2:23 AM [facility] INR 1.0 08/04/2025 2:23 AM [facility] Comment:INR Therapeutic Rang es: Standard dose anticoagulant 2.0 to 3.0, High dose anticoagulant 2.5-3.5. Blood Blood specimen / Unknown 08/04/2025 1:45 AM EST 08/04/2025 1:58 AM EST us Juani De Jesus MD LAB BLOOD ORDERABLES Final Resul t Performing Organization Address City/[facility] [place] [address], [place] [address] * Lipase (08/04/2025 1:45 AM EST) Lipase 23 13 - 60 U/L 08/04/2025 2:23 AM EST [facility] Blood Blood specimen / Unknown 08/04/2025 1:45 AM EST 08/04/2025 1:58 AM EST us Juani De Jesus MD LAB BLOOD ORDERABLES Final Resul t Performing Organization Address [facility] [place] [address], [place] [address] * Type and Screen (08/04/2025 1:36 AM EST) ABO/Rh A POSITIVE 08/04/2025 2:45 AM EST [facility] Antibody Screen NEGATIVE 2:45 AM EST [facility] Specimen Expiration 08/07/2025 08/04/2025 2:45 AM EST [facility] Blood Blood specimen / Unknown 08/04/2025 1:36 AM EST 08/04/2025 2:01 AM EST us Juani De Jesus MD BLOOD BANK TEST ORDERABLES Final Result Performing Organization Address [facility] [place] [address], [place] [address] * CT Head Archive for Reference Only (08/04/2025 1:31 AM EST) [facility] 08/04/2025 1:31 AM EST This study has been auto finalized and does not contain a result. us File Room Provider IMG DIGITIZE FILMS Final Resu lt Performing Organization Address [facility] Co de Phone Number [facility] [phone] * CR Chest Archive for Reference only (08/04/2025 1:30 AM EST) Narrative [facility] 08/04/2025 1:30 AM EST This study has been auto finalized and does not contain a result. File Room Provider IMG DIGITIZE FILMS Final Resu lt Performing Organization Address [facility] Co de Phone Number [facility] [phone] * CT Abdomen Archive for Reference Only (08/04/2025 1:27 AM EST) Narrative [facility] - 08/04/2025 1:27 AM EST This study has been auto finalized and does not contain a result. File Room Provider IMG DIGITIZE FILMS Final Resu lt Performing Organization Address [facility] de Phone Number [facility] [phone] * (ABNORMAL) HIV-1 RNA Viral Load, Quantitative (11/18/2021 12:15 PM EST) HIV-1 RNA (copies/mL) 291,728(H) <30 copies/mL 11/23/2021 2:59 PM [facility] HIV-1 RNA (log10) 5.46(H) <1.46 log copies/mL 11/23/2021 2:59 PM [facility] Interpretation Detected 11/23/2021 2:59 PM [facility] Comment:Performed by FDA elham roved [employer] TMA. Linear range is 30 to 10,000,000 copies/mL. HIV Genotyping is not recommended for viral loads below 2,000 copies/mL. Not FDA approved to diagnose HIV infection. Blood specimen (specimen) Plasma specimen / Unknown 11/18/2021 12:15 PM EST 11/18/2021 12:55 PM EST Shani Blankenship MD LAB BLOOD ORDERABLES Final Resu lt Performing Organization Address [facility] Co de Phone Number [facility] [address] [place] [address] from Last 3 Months or Most Recently Relevant to Health Maintenance Insurance [facility] Advance Directives Documents on File Type Date Recorded Patient Nutrition Services Aide Expl anation Advance Directive-Scan 08/10/2025 1:36 PM 08/10/2025 HH * Full Code (Latest Code Status on File) Date Activated Date Inactivated Comments 08/04/2025 1:18 AM * Full Code Date Activated Date Inactivated Comments 11/17/2021 12:47 PM 08/04/2025 12:55 AM Healthcare Agents on File Name Relationship Healthcare Agent Relationshi p Communication Divya Cramer Adult sibling 1. Health Care Represen tative Care Teams Probation And Parole Officer Relationship Specialty Start Date End Date Real Hightower MD PhD [address] [place] [id number] PCP - General Internal Medicine 08/04/25
== END 2025-09-07 08:05 | disposition left against medical advice (07) ==
PROVIDERS: Emergency Provider Emergency Medicine
DX: R10.A2 Flank pain, left side (principal); Z53.21 Procedure and treatment not carried out due to patient leaving prior to being seen by health care provider